=== PATIENT | female | born 1970 | race Hispanic/Latino ===

== ENCOUNTER 2017-08-11 19:14 | Emergency (ER) | payer OTHER ==
[2017-08-11] MEDS ORDERED: KETOROLAC 30 MG/ML INJ ONE (20:07)
[2017-08-11] MEDS ORDERED: predniSONE 20 MG TAB ONE (20:25)
--- NOTE | 2017-08-11 20:26 | EDPHYS ---
Physician Documentation [facility] Name: Tyra Stewart Age: 46 yrs Sex: Female : 1970 Arrival Date: 08/11/2017 Time: 19:18 Bed 18 Private MD: Althea Grant ED Physician Silvestre Groves HPI: 08/11 20:19 This 46 yrs old Female presents to ER via Ambulatory with complaints of jeremias Sunburn. 20:19 The patient presents with a burn as a result of sun. Onset: The symptoms/episode jeremias began/occurred 14 day(s) ago. Burn type and severity: 1st degree: 2nd degree: approximately 5% total body surface area of second degree injury. Associated signs and symptoms: none. The patient has not experienced similar symptoms in the past. 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 - Social history:: Smoking status: Patient/guardian denies using tobacco. - Ebola Screening: : No symptoms or risks identified at this time. - Family history:: not pertinent. ROS: 20:19 Constitutional: Negative for fever, chills, and weight loss, Eyes: Negative for injury, jeremias pain, redness, and discharge, ENT: Negative for injury, pain, and discharge, Neck: Negative for injury, pain, and swelling, Cardiovascular: Negative for chest pain, palpitations, and edema, Respiratory: Negative for shortness of breath, cough, wheezing, and pleuritic chest pain, Abdomen/GI: Negative for abdominal pain, nausea, vomiting, diarrhea, and constipation, Back: Negative for injury and pain, : Negative for injury, bleeding, discharge, and swelling, MS/Extremity: Negative for injury and deformity, Neuro: Negative for headache, weakness, numbness, tingling, and seizure, Psych: Negative for depression, anxiety, suicide ideation, homicidal ideation, and hallucinations, Allergy/Immunology: Negative for hives, rash, and allergies, Endocrine: Negative for neck swelling, polydipsia, polyuria, polyphagia, and marked weight changes, Hematologic/Lymphatic: Negative for swollen nodes, abnormal bleeding, and unusual bruising. 20:19 Skin: Positive for burn, of the right arm and left arm. Exam: 20:19 Constitutional: This is a well developed, well nourished patient who is awake, alert, jeremias and in no acute distress. Head/Face: Normocephalic, atraumatic. Eyes: Pupils equal round and reactive to light, extra-ocular motions intact. Lids and lashes normal. Conjunctiva and sclera are non-icteric and not injected. Cornea within normal limits. Periorbital areas with no swelling, redness, or edema. ENT: Nares patent. No nasal discharge, no septal abnormalities noted. Tympanic membranes are normal and external auditory canals are clear. Oropharynx with no redness, swelling, or masses, exudates, or evidence of obstruction, uvula midline. Mucous membranes moist. Neck: Trachea midline, no thyromegaly or masses palpated, and no cervical lymphadenopathy. Supple, full range of motion without nuchal rigidity, or vertebral point tenderness. No Meningismus. Chest/axilla: Normal chest wall appearance and motion. Nontender with no deformity. No lesions are appreciated. Cardiovascular: Regular rate and rhythm with a normal S1 and S2. No gallops, murmurs, or rubs. Normal PMI, no JVD. No pulse deficits. Respiratory: Lungs have equal breath sounds bilaterally, clear to auscultation and percussion. No rales, rhonchi or wheezes noted. No increased work of breathing, no retractions or nasal flaring. Abdomen/GI: Soft, non-tender, with normal bowel sounds. No distension or tympany. No guarding or rebound. No evidence of tenderness throughout. Back: No spinal tenderness. No costovertebral tenderness. Full range of motion. MS/ Extremity: Pulses equal, no cyanosis. Neurovascular intact. Full, normal range of motion. Neuro: Awake and alert, GCS 15, oriented to person, place, time, and situation. Cranial nerves II-XII grossly intact. Motor strength 5/5 in all extremities. Sensory grossly intact. Cerebellar exam normal. Normal gait. Psych: Awake, alert, with orientation to person, place and time. Behavior, mood, and affect are within normal limits. 20:19 Skin: Appearance: Color: Temperature: normal temperature, Moisture: normal moisture, petechiae, not noted, ecchymosis, not noted, diaphoresis is not appreciated. Vital Signs: 19:20 BP 141 / 85; Pulse 102; Resp 14; Temp 97.0(TE); Pulse Ox 97% on R/A; Weight 81.65 kg lk1 (R); Height 5 ft. 4 in. (162.56 cm) (R); Pain 6/10; 20:20 BP 132 / 86; Pulse 94; Resp 18; Temp 98.4(TE); Pulse Ox 99% on R/A; Pain 5/10; ak1 19:20 Body Mass Index 30.90 (81.65 kg, 162.56 cm) 1 MDM: 19:26 Patient medically screened. [facility] 20:19 Data reviewed: vital signs, nurses notes, lab test result(s). [facility] 08/11 20:14 Order name: Urine Dipstick--Ancillary (enter results) 08/11 20:14 Order name: Urine --Ancillary (enter results) 08/11 20:04 Order name: Urine Dipstick-Ancillary (obtain specimen); Complete Time: 20:04 ak1 08/11 20:04 Order name: Urine Test (obtain specimen); Complete Time: 20:04 ak Administered Medications: 20:15 Drug: TORadol 60 mg Route: IM; Site: left gluteus; ak1 20:35 Follow up: Response: No adverse reaction ak1 20:24 Drug: predniSONE 60 mg Route: PO; ak1 20:34 Follow up: Response: No adverse reaction ak1 Disposition: 08/11/17 20:25 Discharged to Home. Impression: Sunburn of second degree. - Condition is Stable. - Discharge Instructions: Sunburn, Sunburn, Zukb-es-Mliv. - Prescriptions for Keflex 500 mg Oral Capsule - take 1 capsule by ORAL route every 6 hours for 10 days; 28 capsule. Tylenol- Codeine #3 300-30 mg Oral Tablet - take 2 tablets by ORAL route every 6 hours As needed; 24 tablet. - Medication Reconciliation Form, Thank You Letter, Antibiotic Education, Prescription Opioid Use form. - Follow up: Althea Grant MD; When: 2 - 3 days; Reason: Recheck today's complaints, Continuance of care, Re-evaluation by your physician. - Problem is new. - Symptoms have improved. Signatures: Dispatcher [employer] Silvestre Rea MD MD cha Krenek, Amber, RN RN ak1 Rachle York RN RN lk1 Corrections: (The following items were deleted from the chart) 20:34 20:25 08/11/2017 20:25 Discharged to Home. Impression: Sunburn of second degree. ak1 Condition is Stable. Forms are Medication Reconciliation Form, Thank You Letter, Antibiotic Education, Prescription Opioid Use. Follow up: Althea Grant; When: 2 - 3 days; Reason: Recheck today's complaints, Continuance of care, Re-evaluation by your physician. Problem is new. Symptoms have improved. jeremias
--- NOTE | 2017-08-11 20:26 | ER ---
Nurse's Notes [facility] Name: Tyra Stewart Age: 46 yrs Sex: Female : 1970 Arrival Date: 08/11/2017 Time: 19:18 Bed 18 Private MD: Althea Grant Diagnosis: Sunburn of second degree Presentation: 08/11 19:18 Presenting complaint: Patient states: "I got sunburned last week and I got a sunburn. lk1 It is still burning and I have blisters and they look like there is water in them. I am diabetic.". Transition of care: patient was not received from another setting of care. Onset of symptoms was August 04, 2017. Risk Assessment: Do you want to hurt yourself or someone else? Patient reports no desire to harm self or others. Initial Sepsis Screen: Does the patient meet any 2 criteria? No. Patient's initial sepsis screen is negative. Does the patient have a suspected source of infection? No. Patient's initial sepsis screen is negative. Care prior to arrival: None. 19:18 Method Of Arrival: Ambulatory lk1 19:18 Acuity: TASHI 5 lk1 Triage Assessment: 19:54 General: Appears in no apparent distress. Behavior is calm, cooperative. 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 - Social history:: Smoking status: Patient/guardian denies using tobacco. - Ebola Screening: : No symptoms or risks identified at this time. - Family history:: not pertinent. Screenin:54 Abuse screen: Denies threats or abuse. Denies injuries from another. Nutritional ak1 screening: No deficits noted. Tuberculosis screening: No symptoms or risk factors identified. Fall Risk None identified. Assessment: 19:52 General: Appears in no apparent distress. Pain: Complains of pain in bilateral ak1 shoulders. Neuro: No deficits noted. Cardiovascular: No deficits noted. Respiratory: No deficits noted. GI: No signs and/or symptoms were reported involving the gastrointestinal system. : No signs and/or symptoms were reported regarding the genitourinary system. EENT: No signs and/or symptoms were reported regarding the EENT system. 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 no redness noted. Musculoskeletal: No signs and/or symptoms reported regarding the musculoskeletal system. Vital Signs: 19:20 BP 141 / 85; Pulse 102; Resp 14; Temp 97.0(TE); Pulse Ox 97% on R/A; Weight 81.65 kg lk1 (R); Height 5 ft. 4 in. (162.56 cm) (R); Pain 6/10; 20:20 BP 132 / 86; Pulse 94; Resp 18; Temp 98.4(TE); Pulse Ox 99% on R/A; Pain 5/10; ak1 19:20 Body Mass Index 30.90 (81.65 kg, 162.56 cm) lk1 ED Course: 19:18 Patient arrived in ED. es 19:18 Althea Grant MD is Private Physician. es 19:20 Triage completed. lk1 19:23 Arm band placed on right wrist. lk1 19:24 Eboni Wade, RN is Primary Nurse. ak1 19:26 Silvestre Groves MD is Attending Physician. [facility] 19:54 Patient has correct armband on for positive identification. Fall risk band placed. Bed ak1 in low position. Call light in reach. 20:02 No provider procedures requiring assistance completed. ak1 20:25 Althea Grant MD is Referral Physician. [facility] 20:33 Patient did not have IV access during this emergency room visit. ak1 Administered Medications: 20:15 Drug: TORadol 60 mg Route: IM; Site: left gluteus; ak1 20:35 Follow up: Response: No adverse reaction ak1 20:24 Drug: predniSONE 60 mg Route: PO; ak1 20:34 Follow up: Response: No adverse reaction ak1 Outcome: 20:20 Condition: good ak1 20:25 Discharge ordered by . [facility] 20:33 Discharged to home ambulatory. ak1 20:33 Discharge instructions given to patient, Instructed on discharge instructions, follow up and referral plans. no drinking with medication, no driving heavy equipment, medication usage, Demonstrated understanding of instructions, follow-up care, medications, Prescriptions given X 2. 20:34 Patient left the ED. ak1 Signatures: Silvestre Groves MD MD cha Salyer, Edna es Krenek, Amber, RN RN ak1 Rachel York, ROLAND RN lk1
[2017-08-11 20:39] VITALS: BP 132/86; TEMP 98.4; O2SAT 99
[2017-08-11 20:56] LABS: Urine Blood NEGATIVE (NEG); Urine Glucose NEGATIVE (NEG); Urine Protein 1+ (NEG); Urine Specific Gravity 1.015 (1.005-1.030); Urine pH 5.5 (5.0-7.0)
== END 2017-08-11 20:34 | disposition home or self-care (01) ==
LOC: ER 19:14
DX: L55.1 Sunburn of second degree (principal); I10 Essential (primary) hypertension; E11.9 Type 2 diabetes mellitus without complications
CPT/HCPCS: 81003; 81025; 96372; 99283; J7512

== ENCOUNTER 2017-09-21 13:27 | Observation (INO) | payer OTHER ==
--- OUTSIDE RECORDS SUMMARY | 2017-09-21 13:30 | XMS REPORT ---
:1970 Author Organization [employer] Care Team Providers Name Role Phone Grant, Na Provider Role Unavailable Allergies, Adverse Reactions, Alerts Substance Reaction Event Type N.K.D.A. Info Not Available Non Drug Allergy Problems Problem Type Condition Code Onset Dates Condition Status Assessment Proliferative diabetic retinopathy E11.3592 Active of left eye associated with type 2 diabetes mellitus, unspecified proliferative retinopathy type Assessment Anemia D64.9 Active Problem Trigger finger M65.30 Active Assessment Chronic kidney disease, stage 3 N18.3 Active Problem Legal blindness H54.8 Active Assessment Hyperlipidemia E78.5 Active Problem intermediate current use of insulin Z79.4 Active Problem Anemia D64.9 Active Problem Depression with anxiety F41.8 Active Problem Hyperlipidemia E78.5 Active Problem Diabetes E11.9 Active Assessment Moderate episode of recurrent F33.1 Active major depressive disorder Assessment Benign essential HTN I10 Active Problem Proliferative diabetic retinopathy E11.3592 Active of left eye associated with type 2 diabetes mellitus, unspecified proliferative retinopathy type Assessment Neuropathy G62.9 Active Problem Benign essential HTN I10 Active Problem Vitamin D deficiency E55.9 Active Problem Microalbuminuria R80.9 Active Problem Neuropathy G62.9 Active Problem 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 neuropathy Assessment intermediate current use of insulin Z79.4 Active Assessment Type 2 diabetes mellitus with E11.65 Active hyperglycemia Problem Chronic kidney disease, stage 3 N18.3 Active Problem Type 2 diabetes mellitus with E11.65 Active hyperglycemia Problem Type 2 diabetes mellitus with E11.37X3 Active diabetic macular edema, resolved following treatment, bilateral Problem Moderate episode of recurrent F33.1 Active major depressive disorder Medications Medication Code System Code Instructions Start Date End Date Status Dosage Paxil NDC 0 Active not defined Results No Known Results Summary Purpose [employer] Submission
[2017-09-21 14:23] LABS: Absolute Monocytes 0.6 K/uL (0.1-1.3); Absolute Neutrophil 9.4 K/uL (1.8-8.0); Basophils % 0.4 % (0-1.3); Eosinophils % 0.5 % (0-4.4); Hematocrit 32.1 % (36.0-45.0); Lymphocytes % 9.4 % (15.3-44.8); MCH 26.8 pg (27.0-35.0); MCV 80.3 fL (80-100); MPV 9.7 fL (7.6-11.3)
[2017-09-21 14:27] LABS: Protime INR 1.01
--- NOTE | 2017-09-21 14:28 | RAD REPORT ---
EXAM DESCRIPTION: RAD - Chest Single View - 09/21/2017 2:16 pm CLINICAL HISTORY: CHEST PAIN Chest pain. COMPARISON: Chest Single View dated 11/11/2015; Chest Single View dated 11/09/2015; CHEST PA AND LAT 2 VIEW dated 03/10/2010 FINDINGS: Portable technique limits examination quality. The lungs are underinflated with a small right parahilar opacity noted which could be developing pneu monia. The heart is normal in size. No displaced fractures.
[2017-09-21] MEDS ORDERED: MECLIZINE HCL 12.5 MG TAB ONE (14:31)
[2017-09-21] MEDS ORDERED: ONDANSETRON 4 MG/2 ML VIAL ONE (14:31)
--- NOTE | 2017-09-21 14:38 | RAD REPORT ---
EXAM DESCRIPTION: CT - Head Brain Wo Cont - 09/21/2017 2:23 pm CLINICAL HISTORY: DIZZINESS Headache COMPARISON: HEAD BRAIN W O CONTRAST dated 11/21/2011 TECHNIQUE: All CT scans are performed using dose optimization technique as appropriate and may inclu de automated exposure control or mA/KV adjustment according to patient size. FINDINGS: No intracranial hemorrhage, hydrocephalus or extra-axial fluid collection.No areas of brai n edema or evidence of midline shift. Increased density in the right globe is noted. The paranasal sinuses and mastoids are clear. The calvarium is intact. IMPRESSION: No acute intracranial abnormality. Increased density in the right globe suggests retinal detachment, age undetermined.
[2017-09-21 14:41] LABS: Albumin 3.6 g/dL (3.4-5.0); Bilirubin Direct 0.1 mg/dL (0-0.2); Bilirubin Total 0.4 mg/dL (0.2-1.0); CKMB Creatine Kinase MB 2.4 ng/mL (0.3-3.6); Magnesium 2.3 mg/dL (1.8-2.4); Protein, Total 8.1 g/dL (6.4-8.2)
[2017-09-21 14:42] LABS: Potassium 5.6 mmol/L (3.5-5.1)
[2017-09-21] MEDS ORDERED: NA CHLORIDE 0.9% 1,000 ML ONE (14:59)
[2017-09-21] MEDS ORDERED: MORPHINE 4 MG/ML SYR ONE (15:41)
--- NOTE | 2017-09-21 16:37 | EKG ---
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
[2017-09-21 18:07] LABS: Potassium 5.8 mmol/L (3.5-5.1)
[2017-09-21] MEDS ORDERED: SOD POLYSTYREN SUL 15 GM/60 ML UCUP ONE (18:21)
--- NOTE | 2017-09-21 18:32 | EDPHYS ---
Physician Documentation [facility] Name: Tyra Stewart Age: 46 yrs Sex: Female : 1970 Arrival Date: 09/21/2017 Time: 13:30 Bed 20 Private MD: Althea Grant ED Physician Jeovanny Granado HPI: 09/21 13:59 This 46 yrs old Female presents to ER via Ambulatory with complaints of [facility] Dizziness, Nausea. 13:59 The patient presents with dizziness. Onset: The symptoms/episode began/occurred jm acutely, this morning. Associated signs and symptoms: Pertinent positives: chest pain, shortness of breath. This is a 46 year old female with a history of DM that presents to the ED with dizziness upon awakening this morning worsening with movement. Patient states she took a nap and awoke around 1230 pm with chest pain she describes as pressure. The pain has been constant and radiates across her chest. Patient also complains of chills. Patient states her mother currently has pneumonia. . 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 - Social history:: Smoking status: Patient/guardian denies using tobacco. - Ebola Screening: : Patient negative for fever greater than or equal to 101.5 degrees Fahrenheit, and additional compatible Ebola Virus Disease symptoms Patient denies exposure to infectious person Patient denies travel to an Ebola-affected area in the 21 days before illness onset No symptoms or risks identified at this time. ROS: 14:01 Constitutional: Positive for chills. jmm 14:01 Cardiovascular: Positive for chest pain. jmm 14:01 Back: Negative for injury and pain. jmm 14:01 Respiratory: Positive for shortness of breath. 14:01 Abdomen/GI: Positive for nausea, Negative for abdominal pain, diarrhea. 14:01 Neuro: Positive for dizziness. 14:01 All other systems are negative. Exam: 14:01 Head/Face: atraumatic. jmm 14:01 Constitutional: The patient appears alert, awake, anxious, uncomfortable. 14:01 Chest/axilla: Inspection: normal, Palpation: tenderness, that is moderate, that totally reproduces the patient's complaints. 14:01 Cardiovascular: Rate: normal, Rhythm: regular, Pulses: no pulse deficits are appreciated. 14:01 Respiratory: the patient does not display signs of respiratory distress, Respirations: normal, Breath sounds: are clear throughout. 14:01 Abdomen/GI: Inspection: abdomen appears normal, Bowel sounds: normal, Palpation: abdomen is soft and non-tender, in all quadrants. 14:01 Back: ROM is normal. 14:01 Musculoskeletal/extremity: ROM: intact in all extremities. 14:01 Skin: Appearance: Color: normal in color. 14:01 Neuro: Orientation: is normal, Mentation: is normal, Memory: is normal. 14:01 Psych: Behavior/mood is pleasant, cooperative, anxious. Vital Signs: 13:33 BP 147 / 92; Pulse 115; Resp 20; Temp 99.4(O); Pulse Ox 100% on R/A; Weight 81.65 kg aj1 (R); Height 5 ft. 4 in. (162.56 cm) (R); 14:30 BP 133 / 89; Pulse 99; Resp 16; Pulse Ox 100% on R/A; dh3 14:45 BP 122 / 78; Pulse 93; Resp 20; Pulse Ox 99% on R/A; dh3 15:00 BP 139 / 75; Pulse 92; Resp 13; Pulse Ox 99% on R/A; dh3 15:20 BP 146 / 83; Pulse 91; Resp 18; Pulse Ox 100% on R/A; dh3 16:19 BP 130 / 71; Pulse 82; Resp 14; Pulse Ox 97% on R/A; dh3 17:10 BP 149 / 84; Pulse 84; Resp 17; Pulse Ox 98% on R/A; Pain 0/10; em 18:25 BP 141 / 80; Pulse 83; Resp 16; Temp 97.6(O); Pulse Ox 99% on R/A; Pain 0/10; em 19:30 BP 105 / 70; Pulse 72; Resp 16; Pulse Ox 98% on R/A; ao 20:48 BP 110 / 72; Pulse 79; Resp 16; Pulse Ox 95% on R/A; Pain 0/10; ao 21:40 BP 112 / 68; Pulse 73; Resp 16; Pulse Ox 96% ; ao 13:33 Body Mass Index 30.90 (81.65 kg, 162.56 cm) aj1 MDM: 13:56 Patient medically screened. [facility] 14:17 Data reviewed: vital signs, nurses notes. [facility] 18:26 Counseling: I had a detailed discussion with the patient and/or guardian regarding: the [facility] historical points, exam findings, and any diagnostic results supporting the discharge/admit diagnosis, lab results, radiology results, the need for further work-up and treatment in the hospital. Physician consultation: Zeke Arroyo MD accepts admission. 09/21 13:58 Order name: Basic Metabolic Panel; Complete Time: 14:[address] [facility] 09/21 13:58 Order name: CBC with Diff; Complete Time: 14:[address] [facility] 09/21 13:58 Order name: Ckmb; Complete Time: 14:[address] [facility] 09/21 13:58 Order name: CPK; Complete Time: 14:[address] [facility] 09/21 13:58 Order name: LFT's; Complete Time: 14:[address] [facility] 09/21 13:58 Order name: Magnesium; Complete Time: 14:[address] [facility] 09/21 13:58 Order name: NT PRO-BNP; Complete Time: 14:[address] [facility] 09/21 13:58 Order name: PT-INR; Complete Time: 14:[address] [facility] 09/21 13:58 Order name: Ptt, Activated; Complete Time: 14:[address] [facility] 09/21 13:58 Order name: Troponin (emerg Dept Use Only); Complete Time: 14:[address] [facility] 09/21 17:23 Order name: BMP; Complete Time: 18:[address] [facility] 09/21 18:28 Order name: Blood Culture Adult (2) [facility] 09/21 19:23 Order name: Urine Dipstick--Ancillary (enter results) ms 09/21 19:23 Order name: Urine --Ancillary (enter results) ms 09/21 13:58 Order name: XRAY Chest (1 view); Complete Time: 14:[address] [facility] 09/21 13:58 Order name: EKG; Complete Time: 13:[address] [facility] 09/21 13:58 Order name: Cardiac monitoring; Complete Time: 15:[address] [facility] 09/21 13:58 Order name: EKG - Nurse/Tech; Complete Time: 15:[address] [facility] 09/21 13:58 Order name: IV Saline Lock; Complete Time: 15:[address] [facility] 09/21 13:58 Order name: CT Head Brain wo Cont; Complete Time: 14:[address] [facility] 09/21 19:31 Order name: Urine --Ancillary; Complete Time: 07:52 EDMS 09/21 19:31 Order name: Urine Dipstick-Ancillary; Complete Time: 07:52 EDMS 09/21 21:32 Order name: D-Dimer; Complete Time: 07:52 EDMS 09/21 21:33 Order name: Troponin I; Complete Time: 07:52 EDMS 09/21 13:58 Order name: Labs collected and sent; Complete Time: 15:[address] [facility] 09/21 13:58 Order name: O2 Per Protocol; Complete Time: 15:[address] [facility] 09/21 13:58 Order name: O2 Sat Monitoring; Complete Time: 15:[address] [facility] 09/21 13:58 Order name: Urine Dipstick-Ancillary (obtain specimen); Complete Time: 19:19 jm Administered Medications: 14:37 Drug: Meclizine 25 mg Route: PO; em 15:21 Follow up: Response: No adverse reaction; Marked relief of symptoms em 14:37 Drug: Zofran 4 mg Route: IVP; Site: right antecubital; kr2 15:10 Follow up: Response: No adverse reaction; Anxiety decreased em 15:00 Drug: NS 0.9% 1000 ml Route: IV; Rate: 1 bolus; Site: right antecubital; em 16:00 Follow up: IV Status: Completed infusion; IV Intake: 1000ml em 15:41 Drug: morphine 2 mg Route: IVP; Site: right antecubital; aj1 16:30 Follow up: Response: No adverse reaction; Pain is decreased em 18:20 Drug: Kayexalate 30 grams Route: PO; em 18:59 Follow up: Response: No adverse reaction em 20:30 Drug: Rocephin - (cefTRIAXone) 1 grams Route: IVPB; Infused Over: 30 mins; Site: right ao antecubital; 21:46 Follow up: IV Status: Completed infusion ao Disposition: 09/22 07:13 Co-signature as Attending Physician, Jeovanny Granado MD. rn Disposition: 09/21/17 18:31 Hospitalization ordered by Zeke Arroyo for Observation. Preliminary diagnosis are Pneumonia, Hyperkalemia, Chest Pain. - Bed requested for Telemetry/MedSurg (observation). - Status is Observation. ao - Condition is Stable. - Problem is new. - Symptoms have improved. UTI on Admission? No Signatures: Dispatcher [employer] EDRoya Sommers RN RN aj1 Jena Levine RN RN Avni Chni PA PA [facility] Nawaf, Antolin, TRAIN CONTROLLER TRAIN CONTROLLER em Jeovanny Granado MD MD rn Ortiz, Alex, RN RN ao Reaves, Karey, RN RN kr2 Corrections: (The following items were deleted from the chart) 09/21 19:51 18:31 Hospitalization Ordered by Zeke Arroyo MD for Observation. Preliminary diagnosis kl is Pneumonia; Hyperkalemia; Chest Pain. Bed requested for Telemetry/MedSurg (observation). Status is Observation. Condition is Stable. Problem is new. Symptoms have improved. UTI on Admission? No. [facility] 21:53 19:51 09/21/2017 18:31 Hospitalization Ordered by Zeke Arroyo MD for Observation. ao Preliminary diagnosis is Pneumonia; Hyperkalemia; Chest Pain. Bed requested for Telemetry/MedSurg (observation). Status is Observation. Condition is Stable. Problem is new. Symptoms have improved. UTI on Admission? No. [facility]
--- NOTE | 2017-09-21 18:32 | ER ---
Nurse's Notes [facility] Name: Tyra Stewart Age: 46 yrs Sex: Female : 1970 Arrival Date: 09/21/2017 Time: 13:30 Bed 20 Private MD: Althea Grant Diagnosis: Pneumonia;Hyperkalemia;Chest Pain Presentation: 09/21 13:33 Presenting complaint: Patient states: "I woke up and I was feeling a bunch of pressure aj1 in my chest and its hard breathing and I have a lot of pain in my legs and I feel really dizzy." Reports substernal chest pain that does not radiate, shortness of breath. Denies syncope, vomiting. Transition of care: patient was not received from another setting of care. Onset of symptoms was September 21, 2017 at 08:00. Risk Assessment: Do you want to hurt yourself or someone else? Patient reports no desire to harm self or others. Initial Sepsis Screen: Does the patient meet any 2 criteria? HR > 90 bpm. No. Patient's initial sepsis screen is negative. Does the patient have a suspected source of infection? No. Patient's initial sepsis screen is negative. Care prior to arrival: None. 13:33 Method Of Arrival: Ambulatory aj 13:33 Acuity: TASHI 3 aj1 Triage Assessment: 13:33 General: Appears in no apparent distress. uncomfortable, Behavior is cooperative, aj1 anxious. Pain: Complains of pain in mid-sternal area Pain does not radiate. Pain currently is 7 out of 10 on a pain scale. Quality of pain is described as heavy, Pain began 5 hours ago Is continuous, Alleviated by nothing. Aggravated by nothing. Neuro: Level of Consciousness is awake, alert, obeys commands, Reports dizziness. Cardiovascular: Reports chest pain, nausea, palpitations, shortness of breath, Patient's skin is warm and dry. Respiratory: Airway is patent Respiratory effort is even, unlabored, Respiratory pattern is regular, symmetrical. GI: Reports nausea. 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 - Social history:: Smoking status: Patient/guardian denies using tobacco. - Ebola Screening: : Patient negative for fever greater than or equal to 101.5 degrees Fahrenheit, and additional compatible Ebola Virus Disease symptoms Patient denies exposure to infectious person Patient denies travel to an Ebola-affected area in the 21 days before illness onset No symptoms or risks identified at this time. Screenin:00 Abuse screen: Denies threats or abuse. Nutritional screening: No deficits noted. em Tuberculosis screening: No symptoms or risk factors identified. 17:28 Fall Risk None identified. em Assessment: 14:00 General: Appears in no apparent distress. uncomfortable, Behavior is calm, cooperative. em Pain: Complains of pain in mid-sternal area. Neuro: Level of Consciousness is awake, alert, obeys commands, Oriented to person, place, time, Reports dizziness. Cardiovascular: Reports chest pain, nausea, shortness of breath, Capillary refill < 3 seconds. Respiratory: Airway is patent Respiratory effort is even, unlabored, Respiratory pattern is regular, symmetrical. GI: Abdomen is round non-distended. : No signs and/or symptoms were reported regarding the genitourinary system. Derm: Skin is intact, Skin is pink, warm \\T\\ dry. Musculoskeletal: Range of motion: intact in all extremities. 14:05 Reassessment: I agree with previous assessment. hb 15:30 Reassessment: Patient appears in no apparent distress at this time. Patient and/or em family updated on plan of care and expected duration. Pain level reassessed. pt c/o chest pain, JITENDRA Holly notified, new medication orders received. 16:30 Reassessment: Patient appears in no apparent distress at this time. Patient and/or em family updated on plan of care and expected duration. Pain level reassessed. Patient is alert, oriented x 3, equal unlabored respirations, skin warm/dry/pink. Patient states feeling better. 17:24 Reassessment: Patient appears in no apparent distress at this time. Patient and/or em family updated on plan of care and expected duration. Pain level reassessed. Patient is alert, oriented x 3, equal unlabored respirations, skin warm/dry/pink. Patient states feeling better. Patient states symptoms have improved. 18:20 Reassessment: Patient appears in no apparent distress at this time. currently denies em CP, rates pain 0/10, will be given PO Kayexalate. 19:30 General: Appears in no apparent distress. comfortable, Behavior is calm, cooperative, ao appropriate for age. Pain: Denies pain. Neuro: Level of Consciousness is awake, alert, obeys commands, Oriented to person, place, time, situation, Appropriate for age. Cardiovascular: Reports chest pain, nausea, shortness of breath. Respiratory: Airway is patent Respiratory effort is even, unlabored, Respiratory pattern is regular, symmetrical. GI: Abdomen is round non-distended. : No signs and/or symptoms were reported regarding the genitourinary system. EENT: No signs and/or symptoms were reported regarding the EENT system. Derm: No signs and/or symptoms reported regarding the dermatologic system. Musculoskeletal: No signs and/or symptoms reported regarding the musculoskeletal system. 20:20 Reassessment: Patient appears in no apparent distress at this time. Patient and/or ao family updated on plan of care and expected duration. Pain level reassessed. Patient is alert, oriented x 3, equal unlabored respirations, skin warm/dry/pink. Patient to be admitted. patient agree with the POC. Report to be called. 20:50 Reassessment: Report called to [place] WATKINS. Waiting on an elevator service technician available to take ao patient to her room. 21:52 Reassessment: No elevator service technician available. Patient was taking to her room by ER nurse. Patient ao has no questions. hand off care to ROLAND Boyle. Vital Signs: 13:33 BP 147 / 92; Pulse 115; Resp 20; Temp 99.4(O); Pulse Ox 100% on R/A; Weight 81.65 kg aj1 (R); Height 5 ft. 4 in. (162.56 cm) (R); 14:30 BP 133 / 89; Pulse 99; Resp 16; Pulse Ox 100% on R/A; dh3 14:45 BP 122 / 78; Pulse 93; Resp 20; Pulse Ox 99% on R/A; dh3 15:00 BP 139 / 75; Pulse 92; Resp 13; Pulse Ox 99% on R/A; dh3 15:20 BP 146 / 83; Pulse 91; Resp 18; Pulse Ox 100% on R/A; dh3 16:19 BP 130 / 71; Pulse 82; Resp 14; Pulse Ox 97% on R/A; dh3 17:10 BP 149 / 84; Pulse 84; Resp 17; Pulse Ox 98% on R/A; Pain 0/10; em 18:25 BP 141 / 80; Pulse 83; Resp 16; Temp 97.6(O); Pulse Ox 99% on R/A; Pain 0/10; em 19:30 BP 105 / 70; Pulse 72; Resp 16; Pulse Ox 98% on R/A; ao 20:48 BP 110 / 72; Pulse 79; Resp 16; Pulse Ox 95% on R/A; Pain 0/10; ao 21:40 BP 112 / 68; Pulse 73; Resp 16; Pulse Ox 96% ; ao 13:33 Body Mass Index 30.90 (81.65 kg, 162.56 cm) aj1 ED Course: 13:30 Patient arrived in ED. sb2 13:30 Althea Grant MD is Private Physician. sb2 13:33 Arm band placed on Patient placed in an exam room. aj1 13:37 Triage completed. aj1 13:44 Avni Bello PA is PHCP. jmm 13:45 Jeovanny Granado MD is Attending Physician. jmm 14:00 Patient has correct armband on for positive identification. Bed in low position. Call em light in reach. 14:05 Initial lab(s) drawn, by me, sent to lab. Inserted saline lock: 20 gauge in right dh3 antecubital area, using aseptic technique. Blood collected. 14:10 Antolin Mccracken LVN is Primary Nurse. em 14:14 EKG done, by ED staff, reviewed by Avni HAM. dh3 14:17 XRAY Chest (1 view) In Process Unspecified. EDMS 14:24 CT completed. Patient moved to CT via wheelchair. Patient moved back from CT. cw1 14:24 CT Head Brain wo Cont In Process Unspecified. EDMS 17:27 No provider procedures requiring assistance completed. em 18:30 Zeke Arroyo MD is Hospitalizing Provider. m 19:01 First set of blood cultures drawn by me, by venipuncture 23G to left ac. dh3 19:19 Urine collected: clean catch specimen, clear. dh3 21:48 Patient admitted, IV remains in place. ao Administered Medications: 14:37 Drug: Meclizine 25 mg Route: PO; em 15:21 Follow up: Response: No adverse reaction; Marked relief of symptoms em 14:37 Drug: Zofran 4 mg Route: IVP; Site: right antecubital; kr2 15:10 Follow up: Response: No adverse reaction; Anxiety decreased em 15:00 Drug: NS 0.9% 1000 ml Route: IV; Rate: 1 bolus; Site: right antecubital; em 16:00 Follow up: IV Status: Completed infusion; IV Intake: 1000ml em 15:41 Drug: morphine 2 mg Route: IVP; Site: right antecubital; aj1 16:30 Follow up: Response: No adverse reaction; Pain is decreased em 18:20 Drug: Kayexalate 30 grams Route: PO; em 18:59 Follow up: Response: No adverse reaction em 20:30 Drug: Rocephin - (cefTRIAXone) 1 grams Route: IVPB; Infused Over: 30 mins; Site: right ao antecubital; 21:46 Follow up: IV Status: Completed infusion ao Intake: 16:00 IV: 1000ml; Total: 1000ml. em Outcome: 18:31 Decision to Hospitalize by Provider. usama 21:46 Admitted to Tele accompanied by nurse, room 422, with chart, Other Report lab alert ao D-Dimer 1440. DR Reese has been notified at 2133. 21:46 Condition: stable 21:46 Instructed on the need for admit. 21:53 Patient left the ED. ao Signatures: Dispatcher [employer] Roya Miner RN RN aj1 Avni Bello PA PA [facility] Antolin Mccracken, HULL OUTFIT SUPERVISOR HULL OUTFIT SUPERVISOR Tabby Rebolledo 1 Calin Patel RN Amada De La Torre RN RN Anna Mercado 3 Anh German RN RN susan2 Ailin Potts2
[2017-09-21] MEDS ORDERED: ONDANSETRON 4 MG/2 ML VIAL IV PRN (19:06)
[2017-09-21 19:30] LABS: Urine Blood NEGATIVE (NEG); Urine Glucose NEGATIVE (NEG); Urine Protein 1+ (NEG); Urine pH 5.5 (5.0-7.0)
--- NOTE | 2017-09-21 19:57 | P.HP ---
Certification for Inpatient Patient admitted to: Observation With expected LOS: <2 Midnights Practitioner: I am a practitioner with admitting privileges, knowledge of patient current condition, hospital course, and medical plan of care. Services: Services provided to patient in accordance with Admission requirements found in Title 42 Section 412.3 of the Code of Federal Regulations Patient History Date of Service: 09/21/17 Reason for admission: Chest pain History of Present Illness: Ms Stewart is a 46-year-old woman, with history of insulin-dependent diabetes mellitus, chronic kidney disease, hypertension, would this morning starts having substernal chest pain associated with shortness of breath. The pain was getting worse with breathing moment and any kind of chest moment. She denied any fever or chills. She denied cough associated with. She also states that has been dizzy since this morning. The chest pain lasts until she came to the hospital on received morphine. The pain was constant, intensity 9/10. At arrival the patient was tachycardic HR 115 BPM, temp was 99.4 F, BP 147/92, O2 sat 100% on room air. Lab work remarkable for leukocytosis 11.1 K, hyperkalemia 5.6, and creatinines level more elevated than his baseline. UA abnormal consistent with UTI, chest-x-ray remarkable for right parahilar opacity consistent with possible early pneumonia Allergies piperacillin [From Zosyn] Adverse Reaction (Severe, Verified 11/10/15 23:45) Nausea/Vomiting tazobactam [From Zosyn] Adverse Reaction (Severe, Verified 11/10/15 23:45) Nausea/Vomiting N Allergy (Uncoded 07/30/16 21:13) Unknown No Known Allergies Allergy (Uncoded 08/11/17 20:37) Unknown Home medications list reviewed: Yes Home Medications: Gabapentin [Neurontin] 300 mg PO TID 11/09/15 Insulin Glargine,Hum.rec.anlog [Angie Burns] 69 unit SQ BEDTIME 11/09/15 Lisinopril 10 mg PO DAILY 11/09/15 Hydrocodone Bit/Acetaminophen [War 10-325 Tablet] 1 each PO Q6HP PRN #30 tablet 11/11/15 Metoclopramide HCl [Reglan] 10 mg PO ACS #30 tablet 11/11/15 Minocycline HCl [Minocin] 100 mg PO BID #14 capsule 11/11/15 Silver Sulfadiazine Crm [Silvadene*] 1 appl TOP BID #1 jar 11/11/15 Smz./Tmp. [Bactrim Ds 800 MG/160 MG] 1 tab PO BID #20 tab 11/11/15 - Past Medical/Surgical History -: Diabetes type 2(insulin-dependent) -: Retinopathy -: Blindness Past Surgical History: Reviewed- Non-Contributory - Family History Father -: Diabetes - Social History Alcohol use: No CD- Drugs: No Caffeine use: No Place of Residence: Home Review of Systems 10-point ROS is otherwise unremarkable Physical Examination - Physical Exam General: Alert, In no apparent distress HEENT: Atraumatic, PERRLA, Mucous membr. moist/pink, EOMI, Sclerae nonicteric Neck: Supple, 2+ carotid pulse no bruit, No LAD, Without JVD or thyroid abnormality Respiratory: Normal air movement, Crackles/rales (Crackles on the right middle field.) Cardiovascular: Regular rate/rhythm, Normal S1 S2 Gastrointestinal: Normal bowel sounds, No tenderness Musculoskeletal: No tenderness Integumentary: No rashes Neurological: Normal speech, Normal strength at 5/5 x4 extr, Normal tone, Normal affect Lymphatics: No axilla or inguinal lymphadenopathy - Studies Laboratory Data (last 24 hrs) 09/21/17 17:40: Sodium 142, Potassium 5.8 H*, BUN 33 H, Creatinine 1.60 H, Glucose 102 09/21/17 14:06: PT 11.9, INR 1.01, APTT 32.0 09/21/17 14:06: WBC 11.1 H, Hgb 10.7 L, Hct 32.1 L, Plt Count 239 09/21/17 14:06: Sodium 141, Potassium 5.6 H*, BUN 35 H, Creatinine 1.80 H, Glucose 142 H, Magnesium 2.3, Total Bilirubin 0.4, AST 21, ALT 24, Alkaline Phosphatase 109 Assessment and Plan - Problems (Diagnosis) (1) Diabetes mellitus Current Visit: Yes Status: Acute Qualifiers: Diabetes mellitus type: type 2 Diabetes mellitus nursing home insulin use: with long term care pharmacist use Diabetes mellitus complication status: with kidney complications Diabetes mellitus complication detail: with chronic kidney disease Chronic kidney disease stage: stage 3 (moderate) Qualified Code(s): E11.22 - Type 2 diabetes mellitus with diabetic chronic kidney disease; N18.3 - Chronic kidney disease, stage 3 (moderate); 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 (2) Hypertension Current Visit: Yes Status: Acute Qualifiers: Hypertension type: essential hypertension Qualified Code(s): I10 - Essential (primary) hypertension (3) Hyperkalemia Current Visit: Yes Status: Acute (4) Pneumonia Current Visit: Yes Status: Acute Qualifiers: Pneumonia type: due to unspecified organism Laterality: right Lung location: middle lobe of lung Qualified Code(s): J18.1 - Lobar pneumonia, unspecified organism (5) UTI (urinary tract infection) Current Visit: Yes Status: Acute Qualifiers: Urinary tract infection type: acute cystitis Hematuria presence: without hematuria Qualified Code(s): N30.00 - Acute cystitis without hematuria (6) Acute kidney injury superimposed on chronic kidney disease Current Visit: Yes Status: Acute - Plan The patient will be admitted to the hospital due to atypical chest pain, possible triggered by an early development of pneumonia. Initial troponin is negative, EKG showed no ST-T abnormalities. Since the patient was tachycardic, dizzy, shortness of breath and chest pain at presentation, differential diagnosis include pulmonary embolism. Will start workup ordering D-dimer. She will receive empiric antibiotic treatment for right middle lobe pneumonia and UTI. Blood cultures in process. The patient has received Kayexalate to treat hyperkalemia, last potassium level was 5.8. Will check potassium level again at 10:00 p.m. and will continue treatment if is necessary. - Advance Directives Does patient have a Living Will: No Does patient have a Durable POA for Healthcare: No - Code Status/Comfort Care Code Status Assessed: Yes Code Status: Full Code
[2017-09-21] MEDS ORDERED: Levofloxacin 750mg IV 750 MG/150 ML BAG IV SCH (20:00)
[2017-09-21] MEDS ORDERED: Morphine 2 MG/2 ML SYR IV PRN (20:07)
[2017-09-21] MEDS ORDERED: CEFTRIAXONE/SWI 1gm 1 GM/10 ML SYR ONE (20:20)
[2017-09-21] MEDS: INSULIN -REGULAR HUMAN 50 UNIT/0.5 ML ML SQ SCH (21:00)
[2017-09-21] MEDS ORDERED: MORPHINE 2 MG/ML SYR ONE (23:09)
[2017-09-21] MEDS: NA CHLORIDE 0.9% 1,000 ML IV SCH (23:12)
[2017-09-22] MEDS: ENOXAPARIN 80 MG/0.8 ML SQ SCH ×2 (00:12→09:48)
[2017-09-22] MEDS: NA CHLORIDE 0.9% 1,000 ML IV SCH ×2 (06:00→17:20)
[2017-09-22 06:15] LABS: Albumin 2.8 g/dL (3.4-5.0); Bilirubin Total 0.3 mg/dL (0.2-1.0); Potassium 4.4 mmol/L (3.5-5.1); Protein, Total 6.7 g/dL (6.4-8.2)
[2017-09-22 06:25] LABS: Absolute Lymphocytes (CBC) 2.5 K/uL (0.7-4.9); Absolute Monocytes 0.7 K/uL (0.1-1.3); Absolute Neutrophil 4.5 K/uL (1.8-8.0); Basophils % 0.7 % (0-1.3); Eosinophils % 1.3 % (0-4.4); Hematocrit 26.9 % (36.0-45.0); Lymphocytes % 31.5 % (15.3-44.8); MCV 81.5 fL (80-100); MPV 9.7 fL (7.6-11.3); Monocytes % 8.8 % (3.3-12.3)
[2017-09-22] MEDS: INSULIN -REGULAR HUMAN 50 UNIT/0.5 ML ML SQ SCH ×4 (07:30→20:28)
[2017-09-22] MEDS ORDERED: PNEUMOCOCCAL VACCINE 0.5 ML IMVAC ONE (08:00)
--- NOTE | 2017-09-22 08:17 | RAD REPORT ---
EXAM DESCRIPTION: NM - Vent Perfusion VQ Scan - 09/22/2017 7:59 am CLINICAL HISTORY: Chest pain, shortness of breath COMPARISON: Chest film September 21 TECHNIQUE: The patient was administered 20.2 mCi Xenon 133 gas with posterior projection inspiration , equilibrium, and washout views obtained. The patient was then administered 7.0 mCi Tc-99m MAA label ed RBCs followed by standard 8 view protocol. FINDINGS: There is a generally good distribution of the radiopharmaceutical throughout the lung pare nchyma. Right base activity is diminished due to right hemidiaphragm elevation. Small focal defect is seen in the superior aspect of the right lung field. Cardiac silhouette creates ventilation defect i n the medial left lung field. No significant air-trapping seen. There is a wedge-shaped perfusion defect in the posterosuperior right lung field. This is probably th e correlate to the ventilation defect. Perfusion defect is larger than the ventilation defect. No oth er lobar, segmental or probable subsegmental defects. Patchy diminished activity in the posterior mid left lung field may be due to anatomic soft tissue overlap. IMPRESSION: Intermediate probability V/Q scan for pulmonary embolism.
[2017-09-22] MEDS: GABAPENTIN 100 MG CAP PO SCH ×3 (09:48→20:36)
[2017-09-22] MEDS: LISINOPRIL 10 MG TAB PO SCH (09:48)
[2017-09-22] MEDS: ACETAMINOPHEN 500 MG TAB PO PRN (09:54)
--- NOTE | 2017-09-22 11:17 | RAD REPORT ---
EXAM DESCRIPTION: VAS - Extrem Venous W Compress Charan - 09/22/2017 11:09 am CLINICAL HISTORY: Bilateral leg pain and swelling COMPARISON: None. TECHNIQUE: Real-time sonographic evaluation of the bilateral lower extremity deep venous systems was performed. FINDINGS: Normal compressibility, flow augmentation, phasic flow and spontaneous flow are identified in the bilateral lower extremity common femoral, superficial femoral, popliteal and posterior tibial veins. No intraluminal filling defects seen. IMPRESSION: No DVT in the bilateral lower extremity.
--- NOTE | 2017-09-22 13:33 | PN ---
Date of Progress Note: 09/22/2017 Subjective: The patient is seen and examined. Chart reviewed and case discussed with RN. The patie nt states that she is still having some dizziness, not feeling well. Shortness of breath is also pre sent. Review of Systems: Negative except as above. Medications: List reviewed. Physical Examination: Vital Signs: Temperature 97, heart rate 98, blood pressure 162/85, respirations 18, O2 100% on room air. General: Awake, alert, oriented x3. Some mild distress, appears older than stated age. Obese femal e, BMI 31. CV: S1, S2. Regular rate and rhythm. Peripheral pulses present. Respiratory: Diminished breath sounds at the base. No wheezing or stridor. No use of accessory mus cles. Gastrointestinal: Abdomen is soft, nontender, nondistended. Positive bowel sounds. No guarding or rigidity. Extremities: No clubbing, cyanosis, or edema. Neurologic: Nonfocal. Laboratory Data: Sodium 144, potassium 4.4, chloride 114, CO2 23, BUN 28, creatinine 1.6, glucose 65 , calcium 8.3, albumin 2.8. Troponin less than 0.02. WBC 7.8, H and H 8.9 and 26.9, platelets 203, neutrophils 57.7%. Blood cultures pending. Sputum culture is pending. Doppler sonogram shows no DV T in bilateral lower extremity. CT scan of the head shows no acute intracranial abnormality, increas ed density in the right lobe suggests retinal detachment, age undetermined. V/Q scan shows intermedi ate probability V/Q scan for pulmonary embolism. Assessment And Plan: A 46-year-old female with: 1.Pneumonia, right middle lobe. We will continue with IV antibiotics. Follow up on cultures. 2.Urinary tract infection, acute cystitis without hematuria. Continue antibiotics. Urine culture p ending. 3.Acute on chronic kidney disease. Continue to monitor creatinine. Continue with IV fluids. 4.Hyperkalemia, corrected. 5.Essential hypertension, stable. Resume home medications. 6.Diabetes mellitus type 2 with long-term use of insulin with kidney complications, chronic kidney d isease stage 3. We will continue sliding scale insulin. The patient had some blood sugar levels on the low side at 63. We will continue to monitor. 7.Retinopathy and blindness. 8.Gastrointestinal and deep venous thrombosis prophylaxis with PPI and Lovenox, therapeutic dose. V /Q scan shows intermediate probability for pulmonary embolism. Doppler sono was negative for deep ve nous thrombosis. We will consult Pulmonology. Continue with therapeutic Lovenox for now. Repeat est imaging. /MILLIE Voice ID: [id number] Report ID: [id number]
[2017-09-22] MEDS ORDERED: MORPHINE 2 MG/ML SYR IV PRN (15:19)
[2017-09-22] MEDS ORDERED: INSULIN GLARGINE HUM REC ANLOG 80 UNIT SQ SCH (21:00)
[2017-09-22] MEDS ORDERED: INSULIN GLARGINE 100 UNITS/ML SQ SCH (21:00)
[2017-09-23] MEDS: NA CHLORIDE 0.9% 1,000 ML IV SCH ×2 (01:43→12:00)
[2017-09-23 05:00] LABS: Absolute Lymphocytes (CBC) 1.3 K/uL (0.7-4.9); Absolute Monocytes 0.5 K/uL (0.1-1.3); Absolute Neutrophil 4.9 K/uL (1.8-8.0); Basophils % 0.6 % (0-1.3); Eosinophils % 0.6 % (0-4.4); Hematocrit 26.7 % (36.0-45.0); Lymphocytes % 19.4 % (15.3-44.8); MCH 27.5 pg (27.0-35.0); MPV 9.5 fL (7.6-11.3); Monocytes % 7.6 % (3.3-12.3); RBC Red Blood Cell Count 3.26 M/uL (3.86-4.86)
[2017-09-23 05:21] LABS: Potassium 4.7 mmol/L (3.5-5.1)
[2017-09-23 06:04] VITALS: BMI 31.5
[2017-09-23] MEDS: INSULIN -REGULAR HUMAN 50 UNIT/0.5 ML ML SQ SCH ×4 (07:30→20:36)
[2017-09-23] MEDS: GABAPENTIN 100 MG CAP PO SCH ×3 (09:45→20:33)
[2017-09-23] MEDS: ENOXAPARIN 80 MG/0.8 ML SQ SCH (09:46)
[2017-09-23] MEDS: LISINOPRIL 10 MG TAB PO SCH (09:46)
--- NOTE | 2017-09-23 11:53 | P.CNS ---
Date of Consult: 09/23/17 Chief Complaint: Chest pain, abnormal V/Q scan History of Present Illness: Patient is 46 years of age admitted with sudden onset of pleuritic chest pain patient complained of substernal pain no cough phlegm complains of some chills no prior history of cardiopulmonary problems this was rather sudden in onset pain has improved he Q scan intermediate probability with a perfusion defect in the right upper lobe no evidence of DVT patient has peripheral neuropathy from her diabetes also has some discomfort Allergies piperacillin [From Zosyn] Adverse Reaction (Severe, Verified 11/10/15 23:45) Nausea/Vomiting tazobactam [From Zosyn] Adverse Reaction (Severe, Verified 11/10/15 23:45) Nausea/Vomiting Home Medications: Gabapentin [Neurontin] 100 mg PO TID 11/09/15 Insulin Glargine,Hum.rec.anlog [Toford Solostfawad] 80 unit SQ BEDTIME 11/09/15 Lisinopril 10 mg PO DAILY 11/09/15 - Past Medical/Surgical History Diabetic: Yes -: Diabetes type 2(insulin-dependent) -: Retinopathy -: Blindness -: Neuropathy, peripheral -: HTN - Family History Father Medical History: Diabetes - Social History Smoking Status: Never smoker Alcohol use: No CD- Drugs: No Caffeine use: No Place of Residence: Home Review of Systems 10-point ROS is otherwise unremarkable Physical Examination Temp Pulse Resp BP Pulse Ox 97.6 F 78 18 125/70 96 09/23/17 08:00 09/23/17 09:46 09/23/17 08:00 09/23/17 09:46 09/23/17 08:00 General: Alert, Oriented x3 Neck: Supple Respiratory: Clear to auscultation bilaterally Cardiovascular: No edema, Regular rate/rhythm Gastrointestinal: Normal bowel sounds, Soft and benign Musculoskeletal: No clubbing, No swelling - Problems (1) Chest pain Current Visit: Yes Status: Acute Plan: Patient is 46 years of age admitted with substernal pressure pain worse with inspiration history of diabetes renal failure diabetic retinopathy with nephropathy White count is normal PERC score for rule out pulmonary embolism is negative patient's D-dimer was elevated apart from the 1st episode of of pulse rate of 115 the rest of the time as been below 100 sats normal. Radiologist report. That this is pulmonary embolism she is very high risk for coronary artery disease and her symptoms are subtly suggestive patient is a cardiac evaluation There is a wedge-shaped perfusion defect in the posterosuperior right lung field. This is probably the correlate to the ventilation defect. Perfusion defect is larger than the ventilation defect. No other lobar, segmental or probable subsegmental defects. Patchy diminished activity in the posterior mid left lung field may be due to anatomic soft tissue overlap. IMPRESSION: Intermediate probability V/Q scan for pulmonary embolism. EKGs normal opponents also negative Dc IV fluids Dc IV antibiotics echocardiogram pending
--- NOTE | 2017-09-23 13:48 | PN ---
Date of Progress Note: 09/23/2017 Subjective: The patient seen and examined. Chart reviewed and case discussed with RN and Dr. Ledesma. The patient states she is doing significantly better. Her shortness of breath has improved. Review of Systems: Negative except as above. Medications: List reviewed. Physical Examination: Vital Signs: Temperature 97.6, heart rate 78, blood pressure 125/70, respirations 18, O2 of 96% on room air. General: Awake, alert, oriented x3. No acute distress. Appears older than stated age. Obese female. BMI 31. CV: S1, S2. No murmurs. Regular rate and rhythm. Peripheral pulses present. Respiratory: Moving air well bilaterally. No wheezing. No stridor. No use of accessory muscles. Gastrointestinal: Abdomen is soft, nontender, nondistended. Positive bowel sounds. No hepatomegaly. Extremities: No clubbing, cyanosis, or edema. Neurologic: Nonfocal. Laboratory Data: Sodium 144, potassium 4.7, chloride 113, CO2 of 25, BUN 20, creatinine 1.5, glucose 92, calcium 8.4. WBC 6.8, H and H 9 and 26.7, platelets 178. Blood cultures, no growth to date. Urine culture shows no growth. Sputum culture is pending. Assessment And Plan: A 46-year-old female with: 1. Right middle lobe pneumonia. Continue antibiotics. Cultures, no growth to date. I appreciate Dr. Ledesma's input. 2. Shortness of breath. V/Q scan shows intermediate probability for pulmonary embolism, currently on therapeutic Lovenox. Echocardiogram pending to rule out right ventricle strain. We will follow up with Pulmonology recommendations. 3. Urinary tract infection, acute cystitis without hematuria. We will continue antibiotics. Urine culture showing no growth. 4. [id number]-hmkwgcv kidney injury. Continue IV fluids. 5. Hyperkalemia, corrected. 6. Essential hypertension, stable. 7. 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 We will adjust long-acting insulin dose due to hypoglycemia. Monitor Accu-Cheks. 8. Retinopathy and blindness. 9. Gastrointestinal and deep venous thrombosis prophylaxis with proton-pump inhibitor and Lovenox. We will obtain cardiology consultation for further evaluation of cardiac disease as an etiology. Patient is several risk factors. SA/MODL Voice ID: [id number] Report ID: [id number] MYRIAM
--- NOTE | 2017-09-23 18:20 | ECHO ---
HEIGHT: 5 ft 4 in WEIGHT: 183 lb 12.8 oz DATE OF STUDY: 09/23/[address]: 2-DIMENSIONAL: YES M.MODE: YES DOPPLER: YES COLOR FLOW: YES TDS: NO PORTABLE: NO DEFINITY: NO BUBBLE STUDY: NO DIAGNOSIS: PULMONARY EMBOLISM/ SHORTNESS OF BREATH CARDIAC HISTORY: CATHERIZATION: NO SURGERY: NO PROSTHETIC VALVE: NO PACEMAKER: NO MEASUREMENTS (cm) DIASTOLIC (NORMALS) SYSTOLIC (NORMALS) IVSd 1.0 (0.6-1.2) LA Diam 3.6 (1.9-4.0) LVEF 75% LVIDd 4.2 (3.5-5.7) LVIDs 2.4 (2.0-3.5) %FS 43% LVPWd 1.2 (0.6-1.2) Ao Diam 3.1 (2.0-3.7) 2 DIMENSIONAL ASSESSMENT: RIGHT ATRIUM: NORMAL LEFT ATRIUM: NORMAL RIGHT VENTRICLE: NORMAL LEFT VENTRICLE: NORMAL TRICUSPID VALVE: NORMAL MITRAL VALVE: NORMAL PULMONIC VALVE: NORMAL AORTIC VALVE: NORMAL PERICARDIAL EFFUSION: NONE AORTIC ROOT: NORMAL LEFT VENTRICULAR WALL MOTION: NORMAL DOPPLER/COLOR FLOW: NORMAL COMMENTS: NORMAL 2D ECHOCARDIOGRAM WITH DOPPLER. TECHNOLOGIST: FAB PIERRE
[2017-09-23] MEDS: INSULIN GLARGINE 100 UNITS/ML SQ SCH (20:34)
--- NOTE | 2017-09-23 23:53 | CON ---
Chief Complaint: Chest pain. History Of Present Illness: Ms. Stewart has been in our hospital since Saturday. She had an episo de of chest pain and near syncope. She has diabetes, insulin dependent, chronic kidney disease, hype rtension. She awoke on the with chest pain. She has been in the hospital since then. Her labo ratory tests indicate there was not myocardial necrosis. Troponins are normal. EKG looks fine. She has had hyperkalemia and her creatinine has been 1.8 to 1.5. She has never had myocardial infarctio n, stroke, or vascular disease. Her electrocardiograms appear normal except there is mild sinus tach ycardia, heart rates 100 to 102. Chest x-ray is normal. Ventilation perfusion lung scan done reveals intermediate probability for pulmonary embolus. Study of her leg veins indicates no DVT. Impression: The patient's chest pain does not seem to be likely due to coronary artery disease. She seems to have a right middle lobe pneumonia. I think with all of her risk factors, with her present ing chest pain, at some point we want to do a nuclear stress test on her. I scheduled it for tomorro w. It could be delayed to an outpatient setting or later time if it becomes difficult to do it, but otherwise it is scheduled for tomorrow. MIC Voice ID: [id number] Report ID: [id number]
[2017-09-24 05:11] LABS: Absolute Lymphocytes (CBC) 1.8 K/uL (0.7-4.9); Absolute Monocytes 0.6 K/uL (0.1-1.3); Basophils % 0.7 % (0-1.3); Eosinophils % 2.5 % (0-4.4); Hematocrit 26.8 % (36.0-45.0); Lymphocytes % 27.3 % (15.3-44.8); MCH 27.4 pg (27.0-35.0); MCV 81.2 fL (80-100); MPV 9.5 fL (7.6-11.3); Monocytes % 9.1 % (3.3-12.3)
[2017-09-24 05:16] LABS: Albumin 2.9 g/dL (3.4-5.0); Bilirubin Total 0.2 mg/dL (0.2-1.0); Potassium 4.5 mmol/L (3.5-5.1); Protein, Total 6.8 g/dL (6.4-8.2)
[2017-09-24] MEDS: INSULIN -REGULAR HUMAN 50 UNIT/0.5 ML ML SQ SCH ×4 (07:30→20:53)
[2017-09-24] MEDS: GABAPENTIN 100 MG CAP PO SCH ×3 (08:16→20:53)
[2017-09-24] MEDS: ENOXAPARIN 80 MG/0.8 ML SQ SCH (08:17)
[2017-09-24] MEDS: LISINOPRIL 10 MG TAB PO SCH (08:17)
[2017-09-24] MEDS ORDERED: REGADENOSON 0.4 MG/5 ML SYR IV ONE (09:26)
--- NOTE | 2017-09-24 11:56 | TREADPHA ---
DX: CHEST PAIN Date of Study: 09/24/2017 Ht: 5 4 Wt: 183 lb 12.8 oz Consulting Physician: TALA MEDICATIONS: TYLENOL, LOVENOX, NEURONTIN, LANTUS, NOVOLIN R, PRINIVIL, ZOFRAN HISTORY: 46 YEAR OLD FEMALE WITH COMPLAINTS OF CHEST PAIN. HISTORY OF DIABETES MELLITUS, HYPERTENSION, NEUROPATHY. PHYSICIAL EXAMINATION: RESTING B.P.: 137/88 RESTING H.R.: 75 RESTING EKG: NORMAL PROTOCOL: LEXISCAN EXERCISE TIME: 3:30 B.P. AT PEAK STRESS: 126/71 IMPRESSION: LEXISCAN INJECTED. CARDIOLITE INJECTED PER PROTOCOL. NUCLEAR MEDICINE REPORT. NO CHEST PAIN. NO VENTRICULAR TACHYCARDIA. NO SUPRAVENTRICULAR TACHYCARDIA. NON DIAGNOSTIC EKG WITH LEXISCAN STRESS.
--- NOTE | 2017-09-24 11:59 | RAD REPORT ---
EXAM DESCRIPTION: NM - Rest Stress Cardiac Imaging - 09/24/2017 11:33 am CLINICAL HISTORY: Chest pain. COMPARISON: None. TECHNIQUE: The patient was administered approximately 10mCi of Tc 99m Sestamibi prior to resting SPE CT imaging of the heart. The patient was then administered approximately 30 mCi of Tc 99m Sestamibi f ollowing exercise or pharmacologic stress. Multiplanar SPECT images were reviewed. FINDINGS: There is uniformity of radiotracer uptake involving the entire left ventricular myocardiu m on rest and stress images. The left ventricular ejection fraction equals 74% IMPRESSION: Negative for a myocardial perfusion defect
[2017-09-24] MEDS: ACETAMINOPHEN 500 MG TAB PO PRN (12:15)
--- NOTE | 2017-09-24 13:50 | RAD REPORT ---
EXAM DESCRIPTION: CT - [place] Wo Con - 09/24/2017 1:31 pm CLINICAL HISTORY: Chest pain COMPARISON: September 21 x-ray TECHNIQUE: Computed axial tomography of the chest was obtained. Contrast was not requested. All CT scans are performed using dose optimization technique as appropriate and may include automated exposure control or mA/KV adjustment according to patient size. FINDINGS: The evaluation of mediastinum, amy and vessels is limited secondary to lack of IV contras t administration. Mild alveolar opacities are present within the lower lobes posteriorly bilaterally. Minimal lingular opacity is present No mediastinal or hilar lymphadenopathy is seen. Mild left pleural thickening is present. A pleural effusion is not seen. A pericardial effusion is no t noted. IMPRESSION: Mild bilateral lower lobe pneumonia
--- NOTE | 2017-09-24 14:30 | P.PN ---
Subjective Date of Service: 09/24/17 Chief Complaint: Chest pain, abnormal V/Q scan doing better less chest pain sob Physical Examination - Vital Signs Temperature: 98.5 F Blood Pressure: 137/80 Pulse: 88 Respirations: 16 Pulse Ox (%): 98 - Physical Exam General: Alert, In no apparent distress HEENT: Atraumatic, PERRLA, EOMI Neck: Supple, JVD not distended Respiratory: Clear to auscultation bilaterally, Normal air movement Cardiovascular: Regular rate/rhythm, Normal S1 S2 Gastrointestinal: Normal bowel sounds, No tenderness Musculoskeletal: No tenderness Integumentary: No rashes Neurological: Normal speech, Normal tone, Normal affect Lymphatics: No axilla or inguinal lymphadenopathy - Studies Medications List Reviewed: Yes Assessment And Plan - Current Problems (Diagnosis) (1) Pulmonary embolism Current Visit: Yes Status: Acute (2) Chest pain Current Visit: Yes Status: Acute (3) Diabetes mellitus Onset Date: 09/23/17 Current Visit: Yes Status: Acute Qualifiers: Diabetes mellitus type: type 2 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 insulin use: with middle or intermediate school principal use Diabetes mellitus complication status: with kidney complications Diabetes mellitus complication detail: with chronic kidney disease Chronic kidney disease stage: stage 3 (moderate) Qualified Code(s): E11.22 - Type 2 diabetes mellitus with diabetic chronic kidney disease; N18.3 - Chronic kidney disease, stage 3 (moderate); Z79.4 - superintendent container terminal (current) use of insulin (4) Hypertension Onset Date: 09/23/17 Current Visit: Yes Status: Acute Qualifiers: Hypertension type: essential hypertension Qualified Code(s): I10 - Essential (primary) hypertension (5) Pneumonia Onset Date: 09/23/17 Current Visit: Yes Status: Acute Qualifiers: Pneumonia type: due to unspecified organism Laterality: right Lung location: middle lobe of lung Qualified Code(s): J18.1 - Lobar pneumonia, unspecified organism - Plan cont IV ABX Cont Lovenox Stress Test today
[2017-09-24] MEDS: INSULIN GLARGINE 100 UNITS/ML SQ SCH (20:54)
[2017-09-25 05:52] LABS: Absolute Lymphocytes (CBC) 2.2 K/uL (0.7-4.9); Absolute Monocytes 0.6 K/uL (0.1-1.3); Absolute Neutrophil 4.6 K/uL (1.8-8.0); Basophils % 0.5 % (0-1.3); Eosinophils % 2.3 % (0-4.4); Hematocrit 28.7 % (36.0-45.0); Lymphocytes % 28.5 % (15.3-44.8); MCH 26.9 pg (27.0-35.0); MPV 8.8 fL (7.6-11.3); Monocytes % 7.5 % (3.3-12.3); RBC Red Blood Cell Count 3.59 M/uL (3.86-4.86)
[2017-09-25 06:08] LABS: Bilirubin Total 0.4 mg/dL (0.2-1.0); Potassium 4.6 mmol/L (3.5-5.1); Protein, Total 7.2 g/dL (6.4-8.2)
[2017-09-25] MEDS: INSULIN -REGULAR HUMAN 50 UNIT/0.5 ML ML SQ SCH ×2 (07:30→11:30)
[2017-09-25] MEDS: ENOXAPARIN 80 MG/0.8 ML SQ SCH (10:05)
[2017-09-25] MEDS: GABAPENTIN 100 MG CAP PO SCH (10:05)
[2017-09-25] MEDS: LISINOPRIL 10 MG TAB PO SCH (10:05)
[2017-09-25 11:09] VITALS: O2SAT 97
[2017-09-25 12:14] VITALS: BP 138/81; TEMP 97.6
--- NOTE | 2017-09-25 16:13 | P.DS ---
Admission Date: 09/21/17 Discharge Date: 09/25/17 Disposition: ROUTINE DISCHARGE Discharge Condition: FAIR Reason for Admission: Chest pain, abnormal V/Q scan - Problems (1) Pulmonary embolism Status: Acute Qualifiers: Chronicity: acute Acute cor pulmonale presence: without acute cor pulmonale (2) Chest pain Status: Acute Qualifiers: Chest pain type: chest pain on breathing Qualified Code(s): R07.1 - Chest pain on breathing; R07.81 - Pleurodynia (3) Diabetes mellitus Onset Date: 09/23/17 Status: Chronic Qualifiers: Diabetes mellitus type: type 2 Diabetes mellitus shelter insulin use: with manipulative therapy specialist use Diabetes mellitus complication status: with kidney complications Diabetes mellitus complication detail: with chronic kidney disease Chronic kidney disease stage: stage 3 (moderate) Qualified Code(s): E11.22 - Type 2 diabetes mellitus with diabetic chronic kidney disease; N18.3 - Chronic kidney disease, stage 3 (moderate); Z79.4 - correction (current) use of insulin (4) Hypertension Onset Date: 09/23/17 Status: Chronic Qualifiers: Hypertension type: essential hypertension Qualified Code(s): I10 - Essential (primary) hypertension (5) Pneumonia Onset Date: 09/23/17 Status: Resolved Qualifiers: Pneumonia type: due to unspecified organism Laterality: right Lung location: middle lobe of lung Qualified Code(s): J18.1 - Lobar pneumonia, unspecified organism Brief History of Present Illness: Ms Stewart is a 46-year-old woman, with history of insulin-dependent diabetes mellitus, chronic kidney disease, hypertension, would this morning starts having substernal chest pain associated with shortness of breath. The pain was getting worse with breathing moment and any kind of chest moment. She denied any fever or chills. She denied cough associated with. She also states that has been dizzy since this morning. The chest pain lasts until she came to the hospital on received morphine. The pain was constant, intensity 9/10. At arrival the patient was tachycardic HR 115 BPM, temp was 99.4 F, BP 147/92, O2 sat 100% on room air. Lab work remarkable for leukocytosis 11.1 K, hyperkalemia 5.6, and creatinines level more elevated than his baseline. UA abnormal consistent with UTI, chest-x-ray remarkable for right parahilar opacity consistent with possible early pneumonia Hospital Course: VQ scan shows PE. Stress Test is normal. She was treated with full dose Lovenox , followed by [place]. She is discharged home on Eliquis. No evidence of pneumonia. Vital Signs/Physical Exam: Temp Pulse Resp BP Pulse Ox 97.6 F 83 16 138/81 99 09/25/17 12:00 09/25/17 12:00 09/25/17 12:00 09/25/17 12:00 09/25/17 12:00 General: Alert, In no apparent distress HEENT: Atraumatic, PERRLA, EOMI Neck: Supple, JVD not distended Respiratory: Clear to auscultation bilaterally, Normal air movement Cardiovascular: Regular rate/rhythm, Normal S1 S2 Gastrointestinal: Normal bowel sounds, No tenderness Musculoskeletal: No tenderness Integumentary: No rashes Neurological: Normal speech, Normal tone, Normal affect Lymphatics: No axilla or inguinal lymphadenopathy Laboratory Data at Discharge: WBC 7.6 K/uL (4.3-10.9) D 09/25/17 05:33 Hgb 9.6 g/dL (12.0-15.0) L 09/25/17 05:33 Hct 28.7 % (36.0-45.0) L 09/25/17 05:33 Plt Count 216 K/uL (152-406) 09/25/17 05:33 PT 11.9 SECONDS (9.5-12.5) 09/21/17 14:06 INR 1.01 09/21/17 14:06 APTT 32.0 SECONDS (24.3-36.9) 09/21/17 14:06 Sodium 144 mmol/L (136-145) 09/25/17 05:33 Potassium 4.6 mmol/L (3.5-5.1) 09/25/17 05:33 BUN 24 mg/dL (7-18) H 09/25/17 05:33 Creatinine 1.50 mg/dL (0.55-1.3) H 09/25/17 05:33 Glucose 81 mg/dL (74-106) 09/25/17 05:33 Magnesium 2.3 mg/dL (1.8-2.4) 09/21/17 14:06 Total Bilirubin 0.4 mg/dL (0.2-1.0) 09/25/17 05:33 AST 25 U/L (15-37) 09/25/17 05:33 ALT 23 U/L (12-78) 09/25/17 05:33 Alkaline Phosphatase 82 U/L (45-117) 09/25/17 05:33 Troponin I < 0.02 ng/mL (0.0-0.045) 09/22/17 03:36 Home Medications: Gabapentin [Neurontin*] 100 mg PO TID 11/09/15 Insulin Glargine,Hum.rec.anlog [Angie Burns] 80 unit SQ BEDTIME 11/09/15 Lisinopril 10 mg PO DAILY 11/09/15 Apixaban [Eliquis] 5 mg PO BID #60 tablet 09/25/17 New Medications: Apixaban [Eliquis] 5 mg PO BID #60 tablet Diet: Regular Activity: Ad maximo Followup: Althea Grant DO [Primary Care Provider] - 1 Week Time spent managing pt's care (in minutes): 15
== END 2017-09-25 13:52 | disposition home or self-care (01) ==
LOC: ER 13:27 → ERHOLD 18:34 → 4TH 21:01
PROVIDERS: ADMIT Family Medicine; ATTEND Internal Medicine
DX: I26.99 Other pulmonary embolism without acute cor pulmonale (principal); J18.9 Pneumonia, unspecified organism; I12.9 Hypertensive chronic kidney disease with stage 1 through stage 4 chronic kidney disease, or unspecified chronic kidney disease; E11.22 Type 2 diabetes mellitus with diabetic chronic kidney disease; N18.3 Chronic kidney disease, stage 3 (moderate); N17.9 Acute kidney failure, unspecified; N30.00 Acute cystitis without hematuria; E87.5 Hyperkalemia; H35.00 Unspecified background retinopathy; E11.319 Type 2 diabetes mellitus with unspecified diabetic retinopathy without macular edema
CPT/HCPCS: 36415 ×4; 70450; 71045; 71250; 78452; 78582; 80048 ×3; 80053 ×3; 80076; 81003; 81025; 82550; 82553; 82962 ×21; 83735; 83880; 84132; 84484 ×3; 85025 ×5; 85379; 85610; 85730; 87040 ×2; 87088; 93005; 93017; 93306; 93970; 94760 ×2; 96361; 96365; 96375; 99285; A9500; A9540; A9558; J0696; J1650 ×6; J2270 ×3; J2405; J2785; J7030 ×5; 87086; G0378

== ENCOUNTER 2018-04-18 16:56 | Observation (INO) | payer OTHER ==
--- OUTSIDE RECORDS SUMMARY | 2018-04-18 16:59 | XMS REPORT ---
:1970 Author Organization [employer] Care Team Providers Name Role Phone Grant, Na Provider Role Unavailable Allergies No Known Allergies Problems Problem Type Condition Code Onset Dates Condition Status Problem Microalbuminuria R80.9 Active Problem Hyperlipidemia E78.5 Active Problem Diabetes E11.9 Active Problem Excessive bleeding in N92.4 Active premenopausal period Assessment Type 2 diabetes mellitus with E11.65 Active hyperglycemia Problem Proliferative diabetic retinopathy E11.3592 Active of left eye associated with type 2 diabetes mellitus, unspecified proliferative retinopathy type Assessment Benign essential HTN I10 Active Assessment Other acute pulmonary embolism I26.99 Active without acute cor pulmonale Problem Chronic fatigue R53.82 Active Problem Moderate episode of recurrent F33.1 Active major depressive disorder Problem Type 2 diabetes mellitus with E11.37X3 Active diabetic macular edema, resolved following treatment, bilateral Problem 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 neuropathy Problem Chronic kidney disease, stage 3 N18.3 Active Problem Trigger finger M65.30 Active Problem Legal blindness H54.8 Active Problem Type 2 diabetes mellitus with E11.65 Active hyperglycemia Problem Anemia D64.9 Active Problem Vitamin D deficiency E55.9 Active Problem 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 Z79.4 Active Problem Benign essential HTN I10 Active Assessment Moderate episode of recurrent F33.1 Active major depressive disorder Problem Depression with anxiety F41.8 Active Problem Neuropathy G62.9 Active Medications Medication Code Code Instructions Start End Status Dosage System Date Date Citalopram ND 56261640526 10 MG Orally Feb 25, Active 1 tablet Hydrobromide Once a day 2018 Angie FuentesMickie [place] [id number] 300 UNIT/ML Active 60 units Subcutaneous once a day Eliquis 5 mg ND 33601393116 5 mg by mouth Active one twice daily Lisinopril [facility] 77182739175 20 MG Orally Active 1 tablet Once a day Results No Known Results Summary Purpose eClinicalWorks Submission
--- OUTSIDE RECORDS SUMMARY | 2018-04-18 16:59 | XMS REPORT ---
:1970 Author Organization [employer] Care Team Providers Name Role Phone Grant, Na Provider Role Unavailable Allergies No Known Allergies Problems Problem Type Condition Code Onset Dates Condition Status Problem [facility]DC current use of insulin Z79.4 Active Problem Anemia D64.9 Active Problem Depression with anxiety F41.8 Active Problem Hyperlipidemia E78.5 Active Problem Diabetes E11.9 Active Problem Proliferative diabetic retinopathy E11.3592 Active of left eye associated with type 2 diabetes mellitus, unspecified proliferative retinopathy type Problem Benign essential HTN I10 Active Problem Vitamin D deficiency E55.9 Active Problem Microalbuminuria R80.9 Active Problem Neuropathy G62.9 Active Problem 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 neuropathy Problem Chronic kidney disease, stage 3 N18.3 Active Problem Type 2 diabetes mellitus with E11.65 Active hyperglycemia Problem Type 2 diabetes mellitus with E11.37X3 Active diabetic macular edema, resolved following treatment, bilateral Problem Trigger finger M65.30 Active Problem Moderate episode of recurrent F33.1 Active major depressive disorder Problem Legal blindness H54.8 Active Medications No Known Medications Results No Known Results Summary Purpose eClinicalWorks Submission
--- OUTSIDE RECORDS SUMMARY | 2018-04-18 16:59 | XMS REPORT ---
:1970 Author Organization [employer] Care Team Providers Name Role Phone Grant, Na Provider Role Unavailable Allergies, Adverse Reactions, Alerts Substance Reaction Event Type N.K.D.A. Info Not Available Non Drug Allergy Problems Problem Type Condition Code Onset Dates Condition Status Problem shelter current use of insulin Z79.4 Active Problem Anemia D64.9 Active Problem Depression with anxiety F41.8 Active Problem Hyperlipidemia E78.5 Active Assessment Benign essential HTN I10 Active Problem Diabetes E11.9 Active Assessment Hyperlipidemia E78.5 Active Assessment Chronic kidney disease, stage 3 N18.3 Active Problem Proliferative diabetic retinopathy E11.3592 Active of left eye associated with type 2 diabetes mellitus, unspecified proliferative retinopathy type Problem Benign essential HTN I10 Active Problem Vitamin D deficiency E55.9 Active Problem Microalbuminuria R80.9 Active Problem Neuropathy G62.9 Active Problem 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 neuropathy Assessment Type 2 diabetes mellitus with E11.65 Active hyperglycemia Assessment Other acute pulmonary embolism I26.99 Active without acute cor pulmonale Problem Chronic kidney disease, stage 3 N18.3 Active Problem Type 2 diabetes mellitus with E11.65 Active hyperglycemia Assessment Anemia D64.9 Active Problem Type 2 diabetes mellitus with E11.37X3 Active diabetic macular edema, resolved following treatment, bilateral Problem Trigger finger M65.30 Active Assessment Moderate episode of recurrent F33.1 Active major depressive disorder Problem Moderate episode of recurrent F33.1 Active major depressive disorder Problem Legal blindness H54.8 Active Medications Medication Code Code Instructions Start End Status Dosage System Date Date Paxil [facility] 21310916523 20 MG Orally Active 1 tablet in Once a day the morning Eliquis 5 mg ND 43433904398 5 mg by mouth Oct 01Mar Active one twice daily 2017 Angie FuentesMickie ND 44734402886 300 UNIT/ML Active 80 units Subcutaneous once a day Lisinopril ND 75942551005 20 MG Orally Active 1 tablet Once a day Glimepiride ND 85785334868 2 MG Orally Inactive 1 tablet with Once a day breakfast or the first main meal of the day Pravastatin [facility] 61454460882 20 MG Orally Active 1 tablet Sodium Once a day Gabapentin [facility] 42002621400 300 MG Orally Active 2 capsule Once a day before bedtime Clotrimazole [facility] 82027909718 1 % Externally Active 1 application Twice a day to affected area Ferralet 90 [facility] 59687452697 90-1 MG Orally Inactive 1 tablet Once a day Lipitor [facility] 88578966464 10 MG Orally Inactive 1 tablet Once a day Results No Known Results Summary Purpose [employer]Works Submission
--- OUTSIDE RECORDS SUMMARY | 2018-04-18 16:59 | XMS REPORT ---
[...] H54.8 Active Assessment Hyperlipidemia E78.5 Active Problem correction current use of insulin Z79.4 Active Problem [...] diabetes with peripheral E13.42 Active neuropathy Assessment correction current use of insulin Z79.4 Active Assessment [...]
--- OUTSIDE RECORDS SUMMARY | 2018-04-18 16:59 | XMS REPORT ---
:1970 Author Organization [employer] Care Team Providers Name Role Phone Grant, Na Provider Role Unavailable Allergies No Known Allergies Problems Problem Type Condition Code Onset Dates Condition Status Problem Microalbuminuria R80.9 Active Problem Hyperlipidemia E78.5 Active Problem Diabetes E11.9 Active Problem Excessive bleeding in N92.4 Active premenopausal period Problem Proliferative diabetic retinopathy E11.3592 Active of left eye associated with type 2 diabetes mellitus, unspecified proliferative retinopathy type Problem Chronic fatigue R53.82 Active Problem Moderate [...] Problem Vitamin D deficiency E55.9 Active Problem termite technician current use of insulin Z79.4 Active Problem Benign essential HTN I10 Active Problem Depression with anxiety F41.8 Active Problem Neuropathy G62.9 Active Medications No Known Medications Results No Known Results Summary Purpose eClinicalWorks Submission
--- OUTSIDE RECORDS SUMMARY | 2018-04-18 16:59 | XMS REPORT ---
[...] Problem Vitamin D deficiency E55.9 Active Problem prison current use of insulin Z79.4 Active Problem Benign essential HTN I10 Active Problem Depression with anxiety F41.8 Active Problem Neuropathy G62.9 Active Medications Medication Code Code Instructions Start End Status Dosage System Date Date FreeStyle NDC [id number] - sc every Mar 05, Active as directed Suleiman Sensor 2018 System FreeStyle NDC [id number] - [place] dailyMar 05, Active as directed Suleiman [place] 2018 Results No Known Results Summary Purpose eClinicalWorks Submission
--- OUTSIDE RECORDS SUMMARY | 2018-04-18 16:59 | XMS REPORT ---
:1970 Author Organization [employer] Care Team Providers Name Role Phone Grant, Na Provider Role Unavailable Allergies No Known Allergies Problems Problem Type Condition Code Onset Dates Condition Status Problem intermediate current use of insulin Z79.4 [...]
--- OUTSIDE RECORDS SUMMARY | 2018-04-18 17:00 | XMS REPORT ---
:1970 Author Organization e[employer] Care Team Providers Name Role Phone Grant, Na Provider Role Unavailable Allergies, Adverse Reactions, Alerts Substance Reaction Event Type N.K.D.A. 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 major depressive disorder Problem Benign essential HTN I10 Active Assessment Chronic kidney disease, stage 3 N18.3 Active Problem Neuropathy G62.9 Active Assessment Anemia D64.9 Active Problem Microalbuminuria R80.9 Active Problem Hyperlipidemia E78.5 Active Problem Diabetes E11.9 Active Problem Excessive bleeding in N92.4 Active premenopausal period Problem Proliferative diabetic retinopathy E11.3592 Active of left eye associated with type 2 diabetes mellitus, unspecified proliferative retinopathy type Assessment Type 2 diabetes mellitus with E11.65 Active hyperglycemia Assessment Benign essential HTN I10 Active Problem Chronic fatigue R53.82 Active Assessment Hyperlipidemia E78.5 Active Problem Moderate episode of recurrent F33.1 [...] Problem Vitamin D deficiency E55.9 Active Problem correction current use of insulin Z79.4 Active Problem Depression with anxiety F41.8 Active Medications Medication Code Code Instructions Start End Status Dosage System Date Date Eliquis 5 mg ND 86295935313 5 mg by mouth Active one twice daily Citalopram ND 05712088754 10 MG Orally Feb 25, Active 1 tablet Hydrobromide Once a day 2018 Paxil ND 09471847755 20 MG Orally Inactive 1 tablet in Once a day the morning Toranjeeto GinaoStar [facility] 65736352237 300 UNIT/ML Active 60 units Subcutaneous once a day Gabapentin [facility] 41252324930 300 MG Orally Active 2 capsule Once a day before bedtime Ferralet 90 [facility] 57562658343 90-1 MG Orally Inactive 1 tablet Once a day Lisinopril [facility] 04685632328 20 MG Orally Active 1 tablet Once a day Pravastatin [facility] 74800343119 20 MG Orally Inactive 1 tablet Sodium Once a day Clotrimazole [facility] 72192138925 1 % Externally Active 1 application Twice a day to affected area Results No Known Results Summary Purpose eClinicalWorks Submission
[2018-04-18] MEDS ORDERED: ONDANSETRON 4 MG/2 ML VIAL ONE (18:58)
[2018-04-18] MEDS ORDERED: NA CHLORIDE 0.9% 1,000 ML ONE ×2 (18:58→20:38)
[2018-04-18 19:16] LABS: Absolute Lymphocytes (CBC) 1.4 K/uL (0.7-4.9); Absolute Monocytes 0.7 K/uL (0.1-1.3); Absolute Neutrophil 6.5 K/uL (1.8-8.0); Basophils % 0.4 % (0-1.3); Eosinophils % 2.7 % (0-4.4); Hematocrit 36.6 % (36.0-45.0); Lymphocytes % 15.5 % (15.3-44.8); MPV 9.5 fL (7.6-11.3); Monocytes % 8.4 % (3.3-12.3); RBC Red Blood Cell Count 4.47 M/uL (3.86-4.86)
[2018-04-18 19:33] LABS: Albumin 3.6 g/dL (3.4-5.0); Bilirubin Direct 0.1 mg/dL (0-0.2); Bilirubin Total 0.3 mg/dL (0.2-1.0); Potassium 4.1 mmol/L (3.5-5.1); Protein, Total 8.6 g/dL (6.4-8.2)
[2018-04-18 20:07] LABS: Urine Amorphous Sediment 1+ /HPF (NONE SEEN); Urine Bacteria 20-50 /HPF (<20); Urine Mucus 1+ /HPF (NONE SEEN); Urine RBC <5 /HPF (NONE SEEN)
[2018-04-18 20:08] LABS: Urine Culture Reflex Order REFLEXED
[2018-04-18 20:10] LABS: Urine Blood NEGATIVE (NEG); Urine Glucose NEGATIVE (NEG); Urine Specific Gravity 1.025 (1.005-1.030)
[2018-04-18 20:11] LABS: Urine Protein 2+ (NEG)
--- NOTE | 2018-04-18 20:34 | ER ---
Nurse's Notes [facility] Name: Tyra Stewart Age: 47 yrs Sex: Female : 1970 Arrival Date: 04/18/2018 Time: 16:58 Bed 17 Private MD: Althea Grant Diagnosis: Vomiting;Diarrhea, unspecified;Dehydration;Acute kidney failure Presentation: 04/18 17:00 Presenting complaint: Patient states: n/v/d, lightheaded x 2 days. Transition of care: sv patient was not received from another setting of care. Onset of symptoms was April 16, 2018. Care prior to arrival: None. 17:00 Method Of Arrival: Ambulatory sv 17:00 Acuity: TASHI 3 sv 18:50 Risk Assessment: Do you want to hurt yourself or someone else? Patient reports no em desire to harm self or others. Initial Sepsis Screen: Does the patient meet any 2 criteria? No. Patient's initial sepsis screen is negative. Does the patient have a suspected source of infection? No. Patient's initial sepsis screen is negative. Triage Assessment: 17:02 General: Appears in no apparent distress. uncomfortable, Behavior is calm, cooperative, sv appropriate for age. Pain: Denies pain. Neuro: Level of Consciousness is awake, alert, obeys commands, Oriented to person, place, time, situation, Gait is steady. Respiratory: Respiratory effort is even, unlabored, Respiratory pattern is regular, symmetrical. GI: Reports diarrhea, nausea, tolerance of fluids, vomiting. Historical: - Allergies: 17:01 No Known Allergies; sv - PMHx: 17:01 Diabetes - IDDM; Hypertension; kidney failure; PE in right lung; sv - Immunization history:: Adult Immunizations up to date. - Social history:: Smoking status: unknown. - Ebola Screening: : Patient negative for fever greater than or equal to 101.5 degrees Fahrenheit, and additional compatible Ebola Virus Disease symptoms Patient denies exposure to infectious person Patient denies travel to an Ebola-affected area in the 21 days before illness onset No symptoms or risks identified at this time. Screenin:50 Abuse screen: Denies threats or abuse. Nutritional screening: No deficits noted. em Tuberculosis screening: No symptoms or risk factors identified. Fall Risk None identified. Assessment: 18:50 General: Appears in no apparent distress. uncomfortable, Behavior is calm, cooperative. em Pain: Denies pain. Neuro: Level of Consciousness is awake, alert, obeys commands, Oriented to person, place, time, situation, Reports dizziness, Denies weakness. Cardiovascular: Capillary refill < 3 seconds Patient's skin is warm and dry. Respiratory: Airway is patent Respiratory effort is even, unlabored, Respiratory pattern is regular, symmetrical. GI: Abdomen is flat, Bowel sounds present X 4 quads. Abd is soft and non tender X 4 quads. Reports diarrhea, nausea, vomiting, Patient currently denies abdominal pain. : No signs and/or symptoms were reported regarding the genitourinary system. Derm: Skin is intact, is healthy with good turgor, Skin is pink, warm \T\ dry. Musculoskeletal: Range of motion: intact in all extremities. 18:59 Reassessment: I agree with previous assessment. hb Vital Signs: 17:01 BP 120 / 79; Pulse 100; Resp 20; Temp 98; Pulse Ox 98% ; Weight 81.65 kg; Height 5 ft. sv 4 in. (162.56 cm); Pain 0/10; 18:50 BP 109 / 74; Pulse 88; Resp 18; Pulse Ox 97% on R/A; Pain 0/10; em 17:01 Body Mass Index 30.90 (81.65 kg, 162.56 cm) sv ED Course: 16:58 Patient arrived in ED. as 16:58 Althea Grant MD is Private Physician. as 17:01 Triage completed. sv 17:02 Arm band placed on. sv 18:32 Jean-Paul Interiano NP is PHCP. pm1 18:32 Ronan Conklin MD is Attending Physician. pm1 18:43 Antolin Mccracken LVN is Primary Nurse. em 18:50 Patient has correct armband on for positive identification. Placed in gown. Bed in low em position. Call light in reach. Side rails up X2. Adult w/ patient. Pulse ox on. NIBP on. 20:32 Trudy Thomas MD is Hospitalizing Provider. pm1 22:39 No provider procedures requiring assistance completed. Inserted saline lock: 22 gauge ak1 in right antecubital area, using aseptic technique. ,using aseptic technique. placed by Antolin Lopez LVN prior to cook night. Patient admitted, IV remains in place. Administered Medications: 19:05 Drug: NS 0.9% 1000 ml Route: IV; Rate: 1000 ml; Site: right antecubital; ak1 20:22 Follow up: IV Status: Completed infusion ak1 19:05 Drug: Zofran 4 mg Route: IVP; Site: right antecubital; ak1 20:21 Follow up: Response: No adverse reaction ak1 20:31 Drug: NS 0.9% 1000 ml Route: IV; Rate: 1 bolus; Site: right antecubital; ak1 21:24 Follow up: IV Status: Completed infusion ak1 Outcome: 20:33 Decision to Hospitalize by Provider. pm1 22:38 Admitted to Med/surg accompanied by tech, family with patient, via wheelchair, room ak1 224, with chart. 22:38 Condition: good 22:38 Instructed on the need for admit. 23:19 Patient left the ED. ak1 Signatures: Skye Olivera RN RN sv Munoz, Edgar, FUR BLOWER FUR BLOWER Tamara Cannon Amber, RN RN ak1 Jean-Paul Interiano, TOUCH UP CARVER TOUCH UP CARVER pm1 Amada Aguilar RN RN hb
--- NOTE | 2018-04-18 20:34 | EDPHYS ---
Physician Documentation [facility] Name: Tyra Stewart Age: 47 yrs Sex: Female : 1970 Arrival Date: 04/18/2018 Time: 16:58 Bed 17 Private MD: Althea Grant ED Physician Ronan Conklin HPI: 04/18 20:28 This 47 yrs old Female presents to ER via Ambulatory with complaints of pm1 Vomiting/Diarrhea. 20:28 The patient presents to the emergency department with nausea, vomiting, diarrhea. pm1 Onset: The symptoms/episode began/occurred 2 day(s) ago. Possible causes: sick contacts, by family, daughter, granddaughter. The symptoms are aggravated by nothing. The symptoms are alleviated by nothing. 20:28 Associated signs and symptoms: Pertinent positives: Abdominal cramping with diarrhea, pm1 Pertinent negatives: dysuria, fever. Severity of symptoms: in the emergency department the symptoms are unchanged Pain is currently a 0 / 10. The patient has not recently seen a physician, the patient's primary care provider is Dr. Grant. Patient with vomiting and diarrhea for 2 days. Abdomina cramping with diarrhea. Poor PO intake with vomiting for the past two days. Historical: - Allergies: 17:01 No Known Allergies; sv - PMHx: 17:01 Diabetes - IDDM; Hypertension; kidney failure; PE in right lung; sv - Immunization history:: Adult Immunizations up to date. - Social history:: Smoking status: unknown. - Ebola Screening: : Patient negative for fever greater than or equal to 101.5 degrees Fahrenheit, and additional compatible Ebola Virus Disease symptoms Patient denies exposure to infectious person Patient denies travel to an Ebola-affected area in the 21 days before illness onset No symptoms or risks identified at this time. ROS: 20:28 Constitutional: Negative for fever, chills, and weight loss, Eyes: Negative for injury, pm1 pain, redness, and discharge, ENT: Negative for injury, pain, and discharge, Neck: Negative for injury, pain, and swelling, Cardiovascular: Negative for chest pain, palpitations, and edema, Respiratory: Negative for shortness of breath, cough, wheezing, and pleuritic chest pain. 20:28 Back: Negative for injury and pain, : Negative for injury, bleeding, discharge, and swelling, MS/Extremity: Negative for injury and deformity, Skin: Negative for injury, rash, and discoloration, Neuro: Negative for headache, weakness, numbness, tingling, and seizure. 20:28 Abdomen/GI: Positive for abdominal pain, nausea, vomiting, and diarrhea, abdominal cramps, Negative for constipation. Exam: 20:28 Constitutional: This is a well developed, well nourished patient who is awake, alert, pm1 and in no acute distress. Head/Face: Normocephalic, atraumatic. Eyes: Pupils equal round and reactive to light, extra-ocular motions intact. Lids and lashes normal. Conjunctiva and sclera are non-icteric and not injected. Cornea within normal limits. Periorbital areas with no swelling, redness, or edema. ENT: Nares patent. No nasal discharge, no septal abnormalities noted. Tympanic membranes are normal and external auditory canals are clear. Oropharynx with no redness, swelling, or masses, exudates, or evidence of obstruction, uvula midline. Mucous membranes moist. Neck: Trachea midline, no thyromegaly or masses palpated, and no cervical lymphadenopathy. Supple, full range of motion without nuchal rigidity, or vertebral point tenderness. No Meningismus. Chest/axilla: Normal chest wall appearance and motion. Nontender with no deformity. No lesions are appreciated. Cardiovascular: Regular rate and rhythm with a normal S1 and S2. No gallops, murmurs, or rubs. Normal PMI, no JVD. No pulse deficits. Respiratory: Lungs have equal breath sounds bilaterally, clear to auscultation and percussion. No rales, rhonchi or wheezes noted. No increased work of breathing, no retractions or nasal flaring. Abdomen/GI: Soft, non-tender, with normal bowel sounds. No distension or tympany. No guarding or rebound. No evidence of tenderness throughout. Back: No spinal tenderness. No costovertebral tenderness. Full range of motion. Skin: Warm, dry with normal turgor. Normal color with no rashes, no lesions, and no evidence of cellulitis. 20:28 MS/ Extremity: Pulses equal, no cyanosis. Neurovascular intact. Full, normal range of motion. 20:28 Neuro: Orientation: is normal, Motor: is normal, moves all fours. Vital Signs: 17:01 BP 120 / 79; Pulse 100; Resp 20; Temp 98; Pulse Ox 98% ; Weight 81.65 kg; Height 5 ft. sv 4 in. (162.56 cm); Pain 0/10; 18:50 BP 109 / 74; Pulse 88; Resp 18; Pulse Ox 97% on R/A; Pain 0/10; em 17:01 Body Mass Index 30.90 (81.65 kg, 162.56 cm) sv MDM: 18:32 Patient medically screened. pm1 20:28 Data reviewed: vital signs. Data interpreted: Pulse oximetry: on room air is 97 %. pm1 Interpretation: normal. Counseling: I had a detailed discussion with the patient and/or guardian regarding: the historical points, exam findings, and any diagnostic results supporting the discharge/admit diagnosis, lab results, the need for further work-up and treatment in the hospital. 20:58 Physician consultation: Trudy Thomas MD was contacted at 20:57, regarding admission, pm1 patient's condition, in the emergency department to see patient at 20:58. 04/18 18:37 Order name: Basic Metabolic Panel; Complete Time: 20:20 pm1 04/18 18:37 Order name: CBC with Diff; Complete Time: 20:20 pm1 04/18 18:37 Order name: Creatinine for Radiology; Complete Time: 20:20 pm1 04/18 18:37 Order name: Hepatic Function; Complete Time: 20:20 pm1 04/18 18:37 Order name: Lipase; Complete Time: 20:20 pm1 04/18 18:37 Order name: Urine Microscopic Only; Complete Time: 20:20 pm1 04/18 18:37 Order name: IV Saline Lock; Complete Time: 19:10 pm04/18 18:37 Order name: Labs collected and sent; Complete Time: 19:10 pm04/18 18:37 Order name: Urine Dipstick-Ancillary (obtain specimen); Complete Time: 19:09 pm1 04/18 19:29 Order name: Urine Dipstick--Ancillary (enter results); Complete Time: 20:20 2 04/18 20:09 Order name: Urine Culture EDIN 04/18 18:37 Order name: Urine Test (obtain specimen); Complete Time: 19:09 pm1 Administered Medications: 19:05 Drug: NS 0.9% 1000 ml Route: IV; Rate: 1000 ml; Site: right antecubital; ak1 20:22 Follow up: IV Status: Completed infusion ak1 19:05 Drug: Zofran 4 mg Route: IVP; Site: right antecubital; ak1 20:21 Follow up: Response: No adverse reaction ak1 20:31 Drug: NS 0.9% 1000 ml Route: IV; Rate: 1 bolus; Site: right antecubital; ak1 21:24 Follow up: IV Status: Completed infusion ak1 Disposition: 04/18/18 20:33 Hospitalization ordered by Trudy Thomas for Inpatient Admission. Preliminary diagnosis are Acute kidney failure, Vomiting, Diarrhea, unspecified, Dehydration. - Bed requested for Telemetry/MedSurg (Inpatient). - Status is Inpatient Admission. ak1 - Condition is Stable. - Problem is new. - Symptoms have improved. UTI on Admission? No Addendum: 04/21/2018 06:52 Co-signature as Attending Physician, Ronan Conklni MD I agree with the assessment and k dr plan of care. Signatures: Dispatcher [employer] EDIN Jena Levine RN RN kl Verde, Stephanie, RN RN sv Rittger, Kevin, MD MD kdr Munoz, Edgar, CRIME SCENE INVESTIGATOR CRIME SCENE INVESTIGATOR Eboni Nguyen RN RN ak1 Jean-Paul Interiano, LUISA SALES AND SERVICE ADVISOR pm1 Corrections: (The following items were deleted from the chart) 04/18 22:18 20:33 Hospitalization Ordered by Trudy Thomas MD for Inpatient Admission. Preliminary kl diagnosis is Acute kidney failureVomiting; Diarrhea, unspecified; Dehydration. Bed requested for Telemetry/MedSurg (Inpatient). Status is Inpatient Admission. Condition is Stable. Problem is new. Symptoms have improved. UTI on Admission? No. pm1 23:19 22:18 04/18/2018 20:33 Hospitalization Ordered by Trudy Thomas MD for Inpatient ak1 Admission. Preliminary diagnosis is Acute kidney failureVomiting; Diarrhea, unspecified; Dehydration. Bed requested for Telemetry/MedSurg (Inpatient). Status is Inpatient Admission. Condition is Stable. Problem is new. Symptoms have improved. UTI on Admission? No. kl
--- NOTE | 2018-04-18 21:20 | P.HP ---
Certification for Inpatient Patient admitted to: Observation With expected LOS: <2 Midnights Practitioner: I am a practitioner with admitting privileges, knowledge of patient current condition, hospital course, and medical plan of care. Services: Services provided to patient in accordance with Admission requirements found in Title 42 Section 412.3 of the Code of Federal Regulations Patient History Date of Service: 04/18/18 Reason for admission: acute gastroenteritis History of Present Illness: Ms Gar is a 47 years old woman with history of DM II, HTN, PE, who start with nausea, vomiting and diarrhea 2 days ago. Since so, she has not been able to keep down her food, and partially fluids. She denied fever or chills. Mild diffuse abdominal pain. No blood or mucus seen in stools. She came to day because was feeling dizzy and lethargic, and her symptoms have not improved. Her daughter and grandson had the same symptoms a few days ago. In ED the patient was afebrile, lab work shows normal WBC count. Creatinine 3.75 ( previously in 03/01 was 1.64) Allergies piperacillin [From Zosyn] Adverse Reaction (Severe, Verified 11/10/15 23:45) Nausea/Vomiting tazobactam [From Zosyn] Adverse Reaction (Severe, Verified 11/10/15 23:45) Nausea/Vomiting Home medications list reviewed: Yes Home Medications: Gabapentin [Neurontin*] 100 mg PO TID 11/09/15 Insulin Glargine,Hum.rec.anlog [T[place]ovalo Solostar] 80 unit SQ BEDTIME 11/09/15 Lisinopril 10 mg PO DAILY 11/09/15 Apixaban [Eliquis] 5 mg PO BID #60 tablet 09/25/17 - Past Medical/Surgical History Diabetic: Yes -: Diabetes type 2(insulin-dependent) -: Retinopathy -: Blindness -: Neuropathy, peripheral -: HTN Past Surgical History: Reviewed- Non-Contributory - Family History Father -: Diabetes - Social History Smoking Status: Never smoker Alcohol use: No CD- Drugs: No Caffeine use: No Place of Residence: Home Review of Systems 10-point ROS is otherwise unremarkable Physical Examination - Physical Exam General: Alert, In no apparent distress HEENT: Atraumatic, Mucous membr. moist/pink, EOMI, Sclerae nonicteric Neck: Supple, 2+ carotid pulse no bruit, No LAD, Without JVD or thyroid abnormality Respiratory: Clear to auscultation bilaterally, Normal air movement Cardiovascular: Regular rate/rhythm, Normal S1 S2 Gastrointestinal: Normal bowel sounds, Tenderness (mild diffuse tenderness to palpation.) Musculoskeletal: No tenderness Integumentary: No rashes Neurological: Normal speech, Normal strength at 5/5 x4 extr, Normal tone, Normal affect Lymphatics: No axilla or inguinal lymphadenopathy - Studies Laboratory Data (last 24 hrs) 04/18/18 19:05: Creatinine 3.73 H 04/18/18 19:05: WBC 8.9, Hgb 12.0, Hct 36.6, Plt Count 250 04/18/18 19:05: Sodium 139, Potassium 4.1, BUN 39 H, Creatinine 3.75 H, Glucose 198 H, Total Bilirubin 0.3, AST 21, ALT 25, Alkaline Phosphatase 109, Lipase 129 Assessment and Plan - Problems (Diagnosis) (1) Acute gastroenteritis Current Visit: Yes Status: Acute (2) Acute kidney injury superimposed on chronic kidney disease Onset Date: 09/23/17 Current Visit: No Status: Acute (3) Diabetes mellitus Onset Date: 09/23/17 Current Visit: No Status: Chronic Qualifiers: Diabetes mellitus type: type 2 Diabetes mellitus exterminator insulin use: with exterminator use Diabetes mellitus complication status: with kidney complications Diabetes mellitus complication detail: with chronic kidney disease Chronic kidney disease stage: stage 3 (moderate) Qualified Code(s): E11.22 - Type 2 diabetes mellitus with diabetic chronic kidney disease; N18.3 - Chronic kidney disease, stage 3 (moderate); Z79.4 - computer terminal operator (current) use of insulin (4) Hypertension Onset Date: 09/23/17 Current Visit: No Status: Chronic Qualifiers: Hypertension type: essential hypertension Qualified Code(s): I10 - Essential (primary) hypertension - Plan Will admit the patient under observation due to acute gastroenteritis, acute on CKD. Will continue aggressive fluid replacement and symptoms control. Repeat labs in AM, if tolerate food and renal function improves, she may go home tomorrow in the morning. - Advance Directives Does patient have a Living Will: No Does patient have a Durable POA for Healthcare: No - Code Status/Comfort Care Code Status Assessed: Yes Code Status: Full Code
[2018-04-18] MEDS ORDERED: ONDANSETRON 4 MG/2 ML VIAL IV PRN (22:49)
[2018-04-18] MEDS: NA CHLORIDE 0.9% 1,000 ML IV SCH (23:44)
[2018-04-19 00:27] VITALS: BMI 30.9
[2018-04-19] MEDS: NA CHLORIDE 0.9% 1,000 ML IV SCH ×3 (05:30→22:40)
[2018-04-19 06:23] LABS: Absolute Lymphocytes (CBC) 1.2 K/uL (0.7-4.9); Absolute Monocytes 0.7 K/uL (0.1-1.3); Absolute Neutrophil 4.1 K/uL (1.8-8.0); Basophils % 0.3 % (0-1.3); Eosinophils % 3.6 % (0-4.4); Hematocrit 30.9 % (36.0-45.0); Lymphocytes % 18.8 % (15.3-44.8); MPV 8.9 fL (7.6-11.3); Monocytes % 11.2 % (3.3-12.3); RBC Red Blood Cell Count 3.77 M/uL (3.86-4.86)
[2018-04-19 06:45] LABS: Potassium 4.2 mmol/L (3.5-5.1)
[2018-04-19] MEDS: INSULIN -REGULAR HUMAN 50 UNIT/0.5 ML ML SQ SCH ×4 (07:30→20:56)
[2018-04-19] MEDS ORDERED: MAGNESIUM SULFATE 1 gm IVPB 1 GM/100 ML BAG IV ONE (09:00)
[2018-04-19 13:04] VITALS: O2SAT 98
--- NOTE | 2018-04-19 13:09 | P.PN ---
Subjective Date of Service: 04/19/18 Chief Complaint: acute gastroenteritis Patient seen and examined at bedside with RN. Chart reviewed. Overall no complaints to offer overnight. Has been doing well. No episodes of diarrhea or nausea vomiting noted this morning Review of Systems 10-point ROS is otherwise unremarkable Physical Examination - Vital Signs Temperature: 97.1 F Blood Pressure: 126/77 Pulse: 81 Respirations: 20 Pulse Ox (%): 98 - Physical Exam General: Alert, In no apparent distress HEENT: Atraumatic, PERRLA, EOMI Neck: Supple, JVD not distended Respiratory: Clear to auscultation bilaterally, Normal air movement Cardiovascular: Regular rate/rhythm, Normal S1 S2 Gastrointestinal: Normal bowel sounds, No tenderness Musculoskeletal: No tenderness Integumentary: No rashes Neurological: Normal speech, Normal tone, Normal affect Lymphatics: No axilla or inguinal lymphadenopathy - Studies Laboratory Data (last 24 hrs) 04/18/18 19:05: Creatinine 3.73 H 04/18/18 19:05: WBC 8.9, Hgb 12.0, Hct 36.6, Plt Count 250 04/18/18 19:05: Sodium 139, Potassium 4.1, BUN 39 H, Creatinine 3.75 H, Glucose 198 H, Total Bilirubin 0.3, AST 21, ALT 25, Alkaline Phosphatase 109, Lipase 129 Medications List Reviewed: Yes Assessment And Plan - Current Problems (Diagnosis) (1) Acute gastroenteritis Current Visit: Yes Status: Acute Plan: Acute viral gastroenteritis. Improving today -will continue with IV fluids at this time -will advance to a full liquid diet and advance as tolerated -improvement in diarrhea nausea vomiting at this time (2) Acute kidney injury superimposed on chronic kidney disease Onset Date: 09/23/17 Current Visit: No Status: Acute Plan: Acute kidney injury on chronic kidney disease. Patient's baseline creatinine is around 1.6 -BUN and creatinine improving today on IV fluids. Will continue that here in the hospital. -Most likely secondary to dehydration (3) Diabetes mellitus Onset Date: 09/23/17 Current Visit: No Status: Chronic Qualifiers: Diabetes mellitus type: type 2 Diabetes mellitus scanning supervisor insulin use: with correction use Diabetes mellitus complication status: with kidney complications Diabetes mellitus complication detail: with chronic kidney disease Chronic kidney disease stage: stage 3 (moderate) Qualified Code(s): E11.22 - Type 2 diabetes mellitus with diabetic chronic kidney disease; N18.3 - Chronic kidney disease, stage 3 (moderate); Z79.4 - senior care (current) use of insulin (4) Hypertension Onset Date: 09/23/17 Current Visit: No Status: Chronic Qualifiers: Hypertension type: essential hypertension Qualified Code(s): I10 - Essential (primary) hypertension - Plan Pending clinical improvement at this time Discharge Plan: Home Plan to discharge in: 48 Hours - Code Status/Comfort Care Code Status Assessed: Yes Critical Care: No
[2018-04-19] MEDS: APIXABAN 5 MG TABLET PO SCH (20:44)
[2018-04-20] MEDS: NA CHLORIDE 0.9% 1,000 ML IV SCH (05:34)
[2018-04-20 06:43] LABS: Potassium 4.4 mmol/L (3.5-5.1)
[2018-04-20] MEDS: INSULIN -REGULAR HUMAN 50 UNIT/0.5 ML ML SQ SCH (07:30)
[2018-04-20] MEDS: APIXABAN 5 MG TABLET PO SCH (08:18)
[2018-04-20 10:30] VITALS: BP 147/73; TEMP 97.5
--- NOTE | 2018-04-20 12:52 | P.DS ---
Admission Date: 04/18/18 Discharge Date: 04/20/18 Disposition: ROUTINE DISCHARGE Discharge Condition: GOOD Reason for Admission: acute gastroenteritis - Problems (1) Acute gastroenteritis Status: Acute (2) Acute kidney injury superimposed on chronic kidney disease Onset Date: 09/23/17 Status: Acute (3) Diabetes mellitus Onset Date: 09/23/17 Status: Chronic Qualifiers: Diabetes mellitus type: type 2 Diabetes mellitus mcc insulin use: with mcc use Diabetes mellitus complication status: with kidney complications Diabetes mellitus complication detail: with chronic kidney disease Chronic kidney disease stage: stage 3 (moderate) Qualified Code(s): E11.22 - Type 2 diabetes mellitus with diabetic chronic kidney disease; N18.3 - Chronic kidney disease, stage 3 (moderate); 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 Since so, she has not been able to keep down her food, and partially fluids. She denied fever or chills. Mild diffuse abdominal pain. No blood or mucus seen in stools. She came to day because was feeling dizzy and lethargic, and her symptoms have not improved. Her daughter and grandson had the same symptoms a few days ago. In ED the patient was afebrile, lab work shows normal WBC count. Creatinine 3.75 ( previously in 03/01 was 1.64) Allergies Hospital Course: Overall during the hospital stay patient remained stable Patient was initially admitted to the hospital for acute viral gastroenteritis and acute kidney injury secondary to dehydration. Patient was started on IV fluids while here in the hospital and was kept NPO initially because of nausea and vomiting. 1 nausea and vomiting resolved patient's diet was advanced to a clear liquid and then was advanced to full liquid and then to GI soft. Patient tolerated the diet well. Patient initially had creatinine of 3.6 which improved to creatinine of 1.39 after IV fluids. Patient at that time was discharged home under stable condition was asked to follow up with primary care provider along with this done which care with nephrology outpatient. Patient demonstrated understanding and thus was discharged home under stable condition. Vital Signs/Physical Exam: Temp Pulse Resp BP Pulse Ox 97.5 F 71 20 147/73 H 96 04/20/18 08:00 04/20/18 08:00 04/20/18 08:00 04/20/18 08:00 04/20/18 08:00 General: Alert, In no apparent distress HEENT: Atraumatic, PERRLA, EOMI Neck: Supple, JVD not distended Respiratory: Clear to auscultation bilaterally, Normal air movement Cardiovascular: Regular rate/rhythm, Normal S1 S2 Gastrointestinal: Normal bowel sounds, No tenderness Musculoskeletal: No tenderness Integumentary: No rashes Neurological: Normal speech, Normal tone, Normal affect Lymphatics: No axilla or inguinal lymphadenopathy Laboratory Data at Discharge: WBC 6.2 K/uL (4.3-10.9) D 04/19/18 06:07 Hgb 10.3 g/dL (12.0-15.0) L 04/19/18 06:07 Hct 30.9 % (36.0-45.0) L D 04/19/18 06:07 Plt Count 201 K/uL (152-406) 04/19/18 06:07 Sodium 144 mmol/L (136-145) 04/20/18 06:14 Potassium 4.4 mmol/L (3.5-5.1) 04/20/18 06:14 BUN 15 mg/dL (7-18) 04/20/18 06:14 Creatinine 1.39 mg/dL (0.55-1.3) H 04/20/18 06:14 Glucose 103 mg/dL (74-106) 04/20/18 06:14 Magnesium 2.0 mg/dL (1.8-2.4) 04/20/18 06:14 Total Bilirubin 0.3 mg/dL (0.2-1.0) 04/18/18 19:05 AST 21 U/L (15-37) 04/18/18 19:05 ALT 25 U/L (12-78) 04/18/18 19:05 Alkaline Phosphatase 109 U/L (45-117) 04/18/18 19:05 Lipase 129 U/L (73-393) 04/18/18 19:05 Home Medications: Gabapentin [Neurontin*] 100 mg PO TID 11/09/15 Insulin Glargine,Hum.rec.anlog [Brunoranjeetdilip Fuentesmarcelino] 60 unit SQ BEDTIME 11/09/15 Lisinopril 5 mg PO BID 11/09/15 Apixaban [Eliquis] 5 mg PO BID #60 tablet 09/25/17 Patient Discharge Instructions: Please f.u with PCP in 1 to 2 days post discharge. No new medication. Please resume taking your lisinopril after 5 days of discharge. Increase intake of Fluids Diet: Regular Activity: Ad maximo
== END 2018-04-20 11:17 | disposition home or self-care (01) ==
LOC: ER 16:56 → ERHOLD 21:19 → 2ND 22:43
PROVIDERS: ADMIT Internal Medicine; ATTEND Internal Medicine
DX: A08.4 Viral intestinal infection, unspecified (principal); I12.9 Hypertensive chronic kidney disease with stage 1 through stage 4 chronic kidney disease, or unspecified chronic kidney disease; E11.22 Type 2 diabetes mellitus with diabetic chronic kidney disease; N18.3 Chronic kidney disease, stage 3 (moderate); N17.9 Acute kidney failure, unspecified; Z79.4 Long term (current) use of insulin
CPT/HCPCS: 96361; 87088; 85025 ×2; 80048 ×3; 36415 ×2; 83735 ×2; 82962 ×5; 80076; 83690; 96374; 99285; J3475; J7030 ×8; J2405; G0378 ×2; 81003; 81015; 87086

== ENCOUNTER 2018-12-31 09:56 | Inpatient (IN) | payer OTHER ==
--- OUTSIDE RECORDS SUMMARY | 2018-12-31 10:00 | XMS REPORT ---
:1970 Author Organization [employer] Care Team Providers Name Role Phone Grant, Na Provider Role Unavailable Allergies No Known Allergies Problems Problem Type Condition Code Onset Dates Condition Status Problem prison current use of insulin Z79.4 [...]
--- OUTSIDE RECORDS SUMMARY | 2018-12-31 10:00 | XMS REPORT ---
:1970 Author Organization [employer] Care Team Providers Name Role Phone Grant, Na Provider Role Unavailable Allergies, Adverse Reactions, Alerts Substance Reaction Event Type N.K.D.A. Info Not Available Non Drug Allergy Problems Problem Type Condition Code Onset Dates Condition Status Problem assisted current use of insulin Z79.4 Active Problem [...] End Status Dosage System Date Date Paxil [facility] 12857469700 20 MG Orally Active 1 tablet in Once a day the morning Eliquis 5 mg ND 68806745066 5 mg by mouth Oct 01Mar Active one twice daily 2017 Angie FuentesMickie ND 47459134520 300 UNIT/ML Active 80 units Subcutaneous once a day Lisinopril ND 36686430450 20 MG Orally Active 1 tablet Once a day Glimepiride ND 16882274679 2 MG Orally Inactive 1 tablet with Once a day breakfast or the first main meal of the day Pravastatin [facility] 38099012837 20 MG Orally Active 1 tablet Sodium Once a day Gabapentin [facility] 30104826430 300 MG Orally Active 2 capsule Once a day before bedtime Clotrimazole [facility] 12663918894 1 % Externally Active 1 application Twice a day to affected area Ferralet 90 [facility] 08694795473 90-1 MG Orally Inactive 1 tablet Once a day Lipitor [facility] 73770322875 10 MG Orally Inactive 1 tablet Once a day Results No Known Results Summary Purpose [employer]ClinicalWorks Submission
--- OUTSIDE RECORDS SUMMARY | 2018-12-31 10:01 | XMS REPORT ---
[...] Problem Vitamin D deficiency E55.9 Active Problem rn long term care current use of insulin Z79.4 Active Problem Benign essential HTN I10 Active Problem Depression with anxiety F41.8 Active Problem Neuropathy G62.9 Active Medications No Known Medications Results No Known Results Summary Purpose [employer]Works Submission
--- OUTSIDE RECORDS SUMMARY | 2018-12-31 10:01 | XMS REPORT ---
:1970 Author Organization [employer] Care Team Providers Name Role Phone Grant, Na Provider Role Unavailable Allergies No Known Allergies Problems Problem Type Condition Code Onset Dates Condition Status Problem group home current use of insulin Z79.4 Active Problem [...]
--- OUTSIDE RECORDS SUMMARY | 2018-12-31 10:01 | XMS REPORT ---
[...] Problem Vitamin D deficiency E55.9 Active Problem [facility] current use of insulin Z79.4 Active Problem Benign essential HTN I10 Active Problem Depression with anxiety F41.8 Active Problem Neuropathy G62.9 Active Medications Medication Code Code Instructions Start End Status Dosage System Date Date FreeStyle NDC 14430167867 - [place] every Mar 05, Active as directed Suleiman Sensor 2018 System FreeStyle NDC 90930739928 - [place] dailyMar 05, Active as directed Suleiman [place] 2018 Results No Known Results Summary Purpose eClinicalWorks Submission
--- OUTSIDE RECORDS SUMMARY | 2018-12-31 10:01 | XMS REPORT ---
[...] System Date Date Eliquis 5 mg ND 21567783016 5 mg by mouth Active one twice daily Citalopram ND 08251262559 10 MG Orally Feb 25, Active 1 tablet Hydrobromide Once a day 2018 Paxil ND 83821930719 20 MG Orally Inactive 1 tablet in Once a day the morning Toranjeeto GinaoStar [facility] 01045670803 300 UNIT/ML Active 60 units Subcutaneous once a day Gabapentin [facility] 65407556896 300 MG Orally Active 2 capsule Once a day before bedtime Ferralet 90 [facility] 16831611184 90-1 MG Orally Inactive 1 tablet Once a day Lisinopril [facility] 17154556679 20 MG Orally Active 1 tablet Once a day Pravastatin [facility] 32235438978 20 MG Orally Inactive 1 tablet Sodium Once a day Clotrimazole [facility] 72246210712 1 % Externally Active 1 application Twice a day to affected area Results No Known Results Summary Purpose eClinicalWorks Submission
--- OUTSIDE RECORDS SUMMARY | 2018-12-31 10:01 | XMS REPORT ---
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
--- OUTSIDE RECORDS SUMMARY | 2018-12-31 10:01 | XMS REPORT ---
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.4 Active Problem Benign essential HTN I10 Active Assessment Moderate episode of recurrent F33.1 Active major depressive disorder Problem Depression with anxiety F41.8 Active Problem Neuropathy G62.9 Active Medications Medication Code Code Instructions Start End Status Dosage System Date Date Citalopram ND 37875038859 10 MG Orally Feb 25, Active 1 tablet Hydrobromide Once a day 2018 Angie FuentesMickie ND 85960538359 300 UNIT/ML Active 60 units Subcutaneous once a day Eliquis 5 mg ND 74669986612 5 mg by mouth Active one twice daily Lisinopril [facility] 99333253896 20 MG Orally Active 1 tablet Once a day Results No Known Results Summary Purpose eClinicalWorks Submission
--- OUTSIDE RECORDS SUMMARY | 2018-12-31 10:02 | XMS REPORT ---
:1970 Author Organization [employer] Care Team Providers Name Role Phone Rudy, Althea Provider Role Unavailable Allergies, Adverse Reactions, Alerts [...] Problem Vitamin D deficiency E55.9 Active Problem [facility] current use of insulin Z79.4 Active Problem Depression with anxiety F41.8 Active Medications Medication Code Code Instructions Start End Status Dosage System Date Date Lisinopril [facility] 48727505691 20 MG Orally Active 1 tablet Once a day Citalopram [facility] 79122520939 10 MG Orally Active 1 tablet Hydrobromide Once a day Pravastatin [facility] 79324925452 20 MG Orally Inactive 1 tablet Sodium Once a day Gabapentin [facility] 70363596674 300 MG Orally Active 2 capsule Once a day before bedtime Paxil [facility] 63102632508 20 MG Orally Inactive 1 tablet in Once a day the morning FreeStyle Suleiman [facility] 57460183362 - [place] dailyMar 05, Active as directed [place] 2018 Eliquis 5 mg [facility] 47382742365 5 mg by mouth Active one twice daily Ferralet 90 [facility] 95936174827 90-1 MG Orally Inactive 1 tablet Once a day Clotrimazole [facility] 52440531089 1 % Externally Active 1 application Twice a day to affected area Toujeo SoloStar [facility] 93203016712 300 UNIT/ML Active 70 units Subcutaneous once a day FreeStyle Suleiman [facility] 09328246973 - [place] every Mar 05, Active as directed Sensor System 2018 Results No Known Results Summary Purpose eClinicalWorks Submission
--- NOTE | 2018-12-31 10:37 | RAD REPORT ---
EXAM DESCRIPTION: CT - Head Brain Wo Cont - 12/31/2018 10:17 am CLINICAL HISTORY: Headache COMPARISON: 2018 TECHNIQUE: Computed axial tomography of the head was obtained. IV contrast was not requested. All CT scans are performed using dose optimization technique as appropriate and may include automated exposure control or mA/KV adjustment according to patient size. FINDINGS: An intracranial bleed is not seen . The ventricles are normal in caliber. No extra-axial fluid collection is noted. Fluid within the sinuses/ mastoids is not seen. IMPRESSION: No acute intracranial abnormality is seen. If patient's symptoms persist MRI of the bra in would be recommended.
--- NOTE | 2018-12-31 10:48 | RAD REPORT ---
EXAM DESCRIPTION: Angelica Single View12/31/2018 10:28 am CLINICAL HISTORY: Chest pain COMPARISON: 2018 FINDINGS: The lungs appear clear of acute infiltrate. The heart is normal size IMPRESSION: No acute abnormalities displayed
[2018-12-31 10:52] LABS: Absolute Lymphocytes (CBC) 0.6 K/uL (0.7-4.9); Basophils % 0.6 % (0-1.3); Hematocrit 31.2 % (36.0-45.0); Lymphocytes % 7.9 % (15.3-44.8); MPV 9.6 fL (7.6-11.3); Protime INR 1.12
[2018-12-31] MEDS ORDERED: DIPHENHYDRAMINE 50 MG/ML VIAL ONE (10:57)
[2018-12-31] MEDS ORDERED: METOCLOPRAMIDE 10 MG/2mL INJ ONE (10:57)
[2018-12-31] MEDS ORDERED: NA CHLORIDE 0.9% 100 ML IV ONE (10:58)
[2018-12-31 11:04] LABS: ALT/SGPT 22 U/L (12-78); AST/SGOT 18 U/L (15-37); Albumin 3.4 g/dL (3.4-5.0); Alkaline Phosphatase 99 U/L (45-117); BUN Blood Urea Nitrogen 26 mg/dL (7-18); Bicarbonate 24 mmol/L (21-32); Bilirubin Direct 0.1 mg/dL (0-0.2); Bilirubin Total 0.5 mg/dL (0.2-1.0); Glucose Level 226 mg/dL (74-106); Magnesium 1.9 mg/dL (1.8-2.4); NT PRO-BNP 239 pg/mL (<125); Potassium 4.5 mmol/L (3.5-5.1); Protein, Total 7.8 g/dL (6.4-8.2); Sodium Level 138 mmol/L (136-145); Troponin (Emerg Dept Use Only) < 0.02 ng/mL (0.0-0.045)
--- NOTE | 2018-12-31 13:01 | RAD REPORT ---
EXAM DESCRIPTION: MRI - Brain Wo Cont - 12/31/2018 12:50 pm CLINICAL HISTORY: Headache COMPARISON: December 31, [address] TECHNIQUE: Axial, sagittal, and coronal magnetic images of the brain were obtained. Contrast was not requested FINDINGS: No significant abnormal signal is present within the brain. Diffusion-weighted/ADC mapping does not reveal evidence of acute infarction. The ventricles are normal caliber. An extra-axial fluid collection is not present The sinuses and mastoids are clear. IMPRESSION: No acute abnormality displayed
[2018-12-31] MEDS ORDERED: ONDANSETRON 4 MG/2 ML VIAL ONE (14:10)
[2018-12-31 14:37] LABS: Barbiturates NEGATIVE (NEGATIVE); Benzodiazepines NEGATIVE (NEGATIVE); Cocaine NEGATIVE (NEGATIVE); METHAMPHETAM NEGATIVE (NEGATIVE); Methadone NEGATIVE (NEGATIVE); Opiates NEGATIVE (NEGATIVE); Phencyclidine NEGATIVE (NEGATIVE); THC Cannibis NEGATIVE (NEGATIVE)
--- NOTE | 2018-12-31 15:03 | ER ---
Nurse's Notes [facility] Name: Tyra Stewart Age: 48 yrs Sex: Female : 1970 Arrival Date: 12/31/2018 Time: 09:58 Bed 2 Private MD: Diagnosis: Headache;Ataxic gait Presentation: 12/31 10:05 Presenting complaint: Patient states: Pt flopped into bed from wheelchair and reports jl7 she got in an argument with daughter last night, head started hurting "It feels like it's going to explode." ERP notified and at bedside. Reports non radiating substernal chest pressure, weakness, nausea, and dizziness all began last night around 2230. Transition of care: patient was not received from another setting of care. An acute neurological deficit is present. The charge nurse has been notified. Pre-hospital glucose is not applicable to this patient. Onset of symptoms was December 30, 2018 at 22:30. Risk Assessment: Do you want to hurt yourself or someone else? Patient reports no desire to harm self or others. Initial Sepsis Screen: Does the patient meet any 2 criteria? No. Patient's initial sepsis screen is negative. Does the patient have a suspected source of infection? No. Patient's initial sepsis screen is negative. Care prior to arrival: None. 10:05 Method Of Arrival: Wheelchair jl7 10:05 Acuity: TASHI 2 jl7 Triage Assessment: 10:05 The onset of the patients symptoms was December 30, 2018 at 23:30. General: Appears in jl7 no apparent distress. uncomfortable, Behavior is cooperative, anxious, crying. Pain: Complains of pain in TILLMAN Pain does not radiate. Pain currently is 10 out of 10 on a pain scale. Quality of pain is described as pressure, throbbing, Pain began about 11 hours ago Is continuous. Neuro: Level of Consciousness is awake, alert, obeys commands, Oriented to person, place, time, situation, Weakness Gait is unsteady, Speech is normal, Facial droop on right, Pupils are irregular, Reports dizziness, headache weakness. Cardiovascular: Heart tones present Patient's skin is warm and dry. Rhythm is sinus tachycardia Chest pain is located in substernal area. Respiratory: Airway is patent Respiratory effort is even, unlabored, Respiratory pattern is regular, symmetrical, Breath sounds are clear bilaterally. GI: Reports nausea. Derm: Skin is pink, warm \\T\\ dry. 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 LMP N/A - Post-menopause jl7 Stroke Activation: Symptom onset > 6 hours Physician: Stroke Attending; Name: ; Notified At: ; Arrived At: Physician: Chief Stroke Resident; Name: ; Notified At: ; Arrived At: Physician: Stroke Resident; Name: ; Notified At: ; Arrived At: Physician: ED Attending; Name: ; Notified At: ; Arrived At: Physician: ED Resident; Name: ; Notified At: ; Arrived At: Historical: - Allergies: 10:37 tazobactam; jl7 10:37 piperacillin; jl7 - Home Meds: 10:37 Toujeo SoloStar subcutaneous subcutaneous [Active]; lisinopril Oral [Active]; jl7 gabapentin oral oral [Active]; Insulin: Regular Sub-Q [Active]; - PMHx: 10:37 Diabetes - IDDM; Hypertension; kidney failure; PE in right lung; jl7 - Immunization history:: Adult Immunizations unknown. - Social history:: Smoking status: Patient/guardian denies using tobacco. - Ebola Screening: : No symptoms or risks identified at this time. Screenin:51 Abuse screen: Denies threats or abuse. Denies injuries from another. Nutritional jl7 screening: No deficits noted. Tuberculosis screening: No symptoms or risk factors identified. Fall Risk IV access (20 points). Total Sun Fall Scale indicates No Risk (0-24 pts). Assessment: 10:05 VAN Scoring: Arm Drift: Patients demonstrates NO arm weakness. Patient is VAN Negative. jl7 T-PA (Activase) Screening: Contraindications: Patient reports onset of signs and symptoms of stroke greater than 6 hours ago:. 10:05 The patient has not been NPO before screening. The patient is alert, and able to follow jl7 commands. The patient does not exhibit slurred or garbled speech. The patient is not exhibiting difficulty speaking. The patient does not exhibit difficulty understanding words. The patient is able to swallow own secretions with no drooling or need for suction. Patient tolerated one teaspoon of water. No drooling, immediate coughing, gurgling, or clearing of the throat was noted. The patient tolerated 90mL of water. No drooling, immediate coughing, gurgling, or clearing of the throat was noted. The patient passed the bedside swallow screening. Oral medications may be given as ordered. Contact Physician for further diet orders. Provider notified of bedside swallow screening results: Vinod HAM. 10:05 General: See triage assessment. jl7 11:00 Reassessment: Patient appears in no apparent distress at this time. Patient and/or jl7 family updated on plan of care and expected duration. Pain level reassessed. Patient is alert, oriented x 3, equal unlabored respirations, skin warm/dry/pink. Pt reports TILLMAN is better, rated 2/10 at this time. 12:23 Reassessment: Pt. went to MRI. rb1 13:30 Reassessment: Attempted to ambulate pt, pt stood up and appeared unsteady, reported jl7 feeling weak and dizzy, ERP notified. 14:00 Reassessment: Pt reports nausea, ERD notified, see [facility] for orders. jl7 15:00 Reassessment: Patient appears in no apparent distress at this time. Patient and/or jl7 family updated on plan of care and expected duration. Pain level reassessed. Patient is alert, oriented x 3, equal unlabored respirations, skin warm/dry/pink. Patient states symptoms have improved. Vital Signs: 10:05 BP 163 / 102; Pulse 117; Resp 26 S; Temp 97.9(TE); Pulse Ox 97% on R/A; Pain 10/10; jl7 10:51 BP 136 / 69; Pulse 118; Resp 16; Pulse Ox 100% ; jl7 11:00 Pain 2/10; jl7 11:00 Pain 2/10; jl7 11:42 BP 142 / 88; Pulse 105; Resp 16 S; Pulse Ox 97% on R/A; jl7 12:15 BP 145 / 82; Pulse 105; Resp 16 S; Pulse Ox 97% on R/A; jl7 13:08 BP 153 / 92; Pulse 103; Resp 16 S; Pulse Ox 97% on R/A; jl7 13:58 BP 139 / 81; Pulse 105; Resp 18; Pulse Ox 98% on R/A; rb1 14:16 BP 143 / 83; Pulse 105; Resp 19 S; Pulse Ox 98% on R/A; Pain 0/10; jl7 NIH Stroke Scale Scores: 10:05 NIHSS Score: 8 jl7 ED Course: 09:58 Patient arrived in ED. as 10:05 Arm band placed on right wrist. jl7 10:05 Patient has correct armband on for positive identification. Placed in gown. Bed in low jl7 position. Call light in reach. Side rails up X2. statement request clerk on. Pulse ox on. NIBP on. Warm blanket given. 10:11 Vinod Servin PA is PHCP. jr8 10:11 Kayley Lance MD is Attending Physician. jr8 10:18 CT Head Brain wo Cont In Process Unspecified. EDMS 10:19 Matt White, ROLAND is Primary Nurse. jl7 10:25 XRAY Chest (1 view) In Process Unspecified. EDMS 10:30 Triage completed. jl7 10:34 Initial lab(s) drawn, by ar, sent to lab. Inserted saline lock: 20 gauge in right em1 forearm, using aseptic technique. Blood collected. 10:39 EKG done, by costume technician. reviewed by Vinod HAM. at1 12:07 Awaiting: MRI. jl7 12:38 MRI - Brain Wo Cont In Process Unspecified. EDMS 13:50 Urine collected: straight cath specimen, cloudy. Straight cath inserted, using sterile jl7 technique, 16 Fr. Specimen obtained. 14:50 Admitting physician to see patient. jl7 15:02 Edy Hebert MD is Hospitalizing Provider. jr8 17:32 No provider procedures requiring assistance completed. Patient admitted, IV remains in jl7 place. intact, No redness/swelling at site. Administered Medications: 10:35 Drug: Benadryl 25 mg Route: IVP; Site: right forearm; jl7 11:00 Follow up: Pain 2/10 Adult; Response: No adverse reaction; Pain is decreased jl7 10:36 Drug: Reglan 10 mg Route: IVP; Site: right forearm; jl7 11:00 Follow up: Pain 2/10 Adult; Response: No adverse reaction; Pain is decreased jl7 14:05 Drug: Zofran 4 mg Route: IVP; Site: right forearm; jl7 14:30 Follow up: Response: No adverse reaction; Nausea is decreased jl7 Point of Care Testing: Blood Glucose: 10:20 Blood Glucose: 225 mg/dL; jl7 Ranges: Outcome: 15:03 Decision to Hospitalize by Provider. katt 17:32 Admitted to Tele accompanied by tech, family with patient, via stretcher, room 225, jl7 with chart, Report called to ROLAND Hoyt 17:32 Condition: stable 17:32 Discharge instructions given to patient, family, Instructed on the need for admit, Demonstrated understanding of instructions. 18:25 Patient left the ED. jl7 NIH Stroke Scale - NIH Stroke Score Date: 12/31/2018 Time: 10:05 Total Score = 8 1a. Level of Consciousness (LOC) - 0(Alert) 1b. Level of Consciousness (LOC) (Year \\T\\ Age) - 0(Both) 1c. LOC Commands (Open \\T\\ Closes Eyes/[place] [place] [employer] [place]) - 0(Both) 2. Best Gaze (Lateral Gaze Paresis) - 0(Normal) 3. Visual Field Loss - 2(Complete hemianopia) 4. Facial Palsy - 1(Minor Paralysis) 5a. Left Arm: Motor (10-second hold) - 1(Drift) 5b. Right Arm: Motor (10-second hold) - 0(No drift) 6a. Left Leg: Motor (5-second hold - always test supine) - 1(Drift) 6b. Right Leg: Motor (5-second hold - always test supine) - 0(No drift) 7. Limb Ataxia (finger/nose \\T\\ heel/calero - test with eyes open) - 2(Present in two limbs) 8. Sensory Loss (pinprick arms/legs/face) - 1(Mild to moderate loss) 9. Best Language: Aphasia (description/naming/reading) - 0(No aphasia) 10. Dysarthria (speech clarity - read or repeat words) - 0(Normal) 11. Extinction and Inattention (visual/tactile/auditory/spatial/personal) - 0(No abnormality) Initials: jl7 Signatures: Dispatcher [employer] Tamara Flores Eric em1 Vinod Servin PA PA jr8 Angi Rordíguez, geopolitics teacher EKG Tat1 Daisha Arzola, RN RN rb1 Matt White RN RN jl7
--- NOTE | 2018-12-31 15:03 | EDPHYS ---
Physician Documentation [facility] Name: Tyra Stewart Age: 48 yrs Sex: Female : 1970 Arrival Date: 12/31/2018 Time: 09:58 Bed 2 Private MD: ED Physician Kayley Lance HPI: 12/31 12:37 This 48 yrs old Female presents to ER via Wheelchair with complaints of jr8 Headache . 12:40 The patient complains of pain to the diffusely . The patient describes the headache as jr8 pounding. Onset: The symptoms/episode began/occurred acutely, last night. Associated signs and symptoms: Pertinent positives: dizziness. Severity of symptoms: At its worst the pain was moderate, in the emergency department the pain is unchanged. Headache History: Denies prior headaches. The symptoms are alleviated by nothing. the symptoms are aggravated by movement, stress. The patient has not experienced similar symptoms in the past. The patient has not recently seen a physician. 12:58 Patient stated that she was in an argument last night with family member. No physical jr8 altercation happened. Stated that she had sudden onset headache last night while arguing. Has not had any relief since then and is now having trouble walking . ANCHORMAN: 10:05 LMP N/A - Post-menopause jl Historical: - Allergies: 10:37 tazobactam; jl7 10:37 piperacillin; jl7 - Home Meds: 10:37 Toujeo SoloStar subcutaneous subcutaneous [Active]; lisinopril Oral [Active]; jl7 gabapentin oral oral [Active]; Insulin: Regular Sub-Q [Active]; - PMHx: 10:37 Diabetes - IDDM; Hypertension; kidney failure; PE in right lung; jl7 - Immunization history:: Adult Immunizations unknown. - Social history:: Smoking status: Patient/guardian denies using tobacco. - Ebola Screening: : No symptoms or risks identified at this time. ROS: 12:58 Eyes: Negative for injury, pain, redness, and discharge, ENT: Negative for injury, jr8 pain, and discharge, Neck: Negative for injury, pain, and swelling, Cardiovascular: Negative for chest pain, palpitations, and edema, Respiratory: Negative for shortness of breath, cough, wheezing, and pleuritic chest pain, Abdomen/GI: Negative for abdominal pain, nausea, vomiting, diarrhea, and constipation, Back: Negative for injury and pain, MS/Extremity: Negative for injury and deformity, Skin: Negative for injury, rash, and discoloration. 12:58 Neuro: Positive for gait disturbance, headache. Exam: 15:03 Eyes: Pupils equal round and reactive to light, extra-ocular motions intact. Lids and jr8 lashes normal. Conjunctiva and sclera are non-icteric and not injected. Cornea within normal limits. Periorbital areas with no swelling, redness, or edema. ENT: Nares patent. No nasal discharge, no septal abnormalities noted. Tympanic membranes are normal and external auditory canals are clear. Oropharynx with no redness, swelling, or masses, exudates, or evidence of obstruction, uvula midline. Mucous membranes moist. Neck: Trachea midline, no thyromegaly or masses palpated, and no cervical lymphadenopathy. Supple, full range of motion without nuchal rigidity, or vertebral point tenderness. No Meningismus. Cardiovascular: Regular rate and rhythm with a normal S1 and S2. No gallops, murmurs, or rubs. Normal PMI, no JVD. No pulse deficits. Respiratory: Lungs have equal breath sounds bilaterally, clear to auscultation and percussion. No rales, rhonchi or wheezes noted. No increased work of breathing, no retractions or nasal flaring. Abdomen/GI: Soft, non-tender, with normal bowel sounds. No distension or tympany. No guarding or rebound. No evidence of tenderness throughout. Back: No spinal tenderness. No costovertebral tenderness. Full range of motion. Skin: Warm, dry with normal turgor. Normal color with no rashes, no lesions, and no evidence of cellulitis. MS/ Extremity: Pulses equal, no cyanosis. Neurovascular intact. Full, normal range of motion. 15:03 Neuro: Orientation: to person, place, time \T\ situation. Mentation: is normal, Memory: is normal, immediate memory is intact, recent memory is intact, remote memory is intact, Cranial nerves: CN I not tested, CN II- XII are normal as tested, visual jain are intact. 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 Nystagmus is absent. Speech is clear and appropriate. Tongue strength is normal, Cerebellar function: dysmetria is noted on both sides, Motor: moves all fours, strength is 5/5 in all extremities, Sensation: no obvious gross deficits, Gait: is unsteady, ataxic, seizure activity, is not displayed by the patient, Abnormal movements: there are no abnormal movements. Vital Signs: 10:05 BP 163 / 102; Pulse 117; Resp 26 S; Temp 97.9(TE); Pulse Ox 97% on R/A; Pain 10/10; jl7 10:51 BP 136 / 69; Pulse 118; Resp 16; Pulse Ox 100% ; jl7 11:00 Pain 2/10; jl7 11:00 Pain 2/10; jl7 11:42 BP 142 / 88; Pulse 105; Resp 16 S; Pulse Ox 97% on R/A; jl7 12:15 BP 145 / 82; Pulse 105; Resp 16 S; Pulse Ox 97% on R/A; jl7 13:08 BP 153 / 92; Pulse 103; Resp 16 S; Pulse Ox 97% on R/A; jl7 13:58 BP 139 / 81; Pulse 105; Resp 18; Pulse Ox 98% on R/A; rb1 14:16 BP 143 / 83; Pulse 105; Resp 19 S; Pulse Ox 98% on R/A; Pain 0/10; jl7 NIH Stroke Scale Scores: 10:05 NIHSS Score: 8 jl7 MDM: 10:11 Patient medically screened. [facility] 14:54 Data reviewed: vital signs, nurses notes, lab test result(s), EKG, radiologic studies, [facility] CT scan, MRI. Data interpreted: Pulse oximetry: on room air is 98 %. Interpretation: normal. Counseling: I had a detailed discussion with the patient and/or guardian regarding: the historical points, exam findings, and any diagnostic results supporting the discharge/admit diagnosis, lab results, radiology results, the need for further work-up and treatment in the hospital. ED course: Patients headache improved but still unsteady. Consulted Dr. iverson who accepted for obs under medicine . 12/31 10:11 Order name: Basic Metabolic Panel; Complete Time: 11:13 [facility] 12/31 10:11 Order name: CBC with Diff; Complete Time: : 8 12/31 10:11 Order name: LFT's; Complete Time: 11:13 [facility] 12/31 10:11 Order name: Magnesium; Complete Time: 11:13 [facility] 12/31 10:11 Order name: NT PRO-BNP; Complete Time: 11:13 [facility] 12/31 10:11 Order name: PT-INR; Complete Time: 11:13 [facility] 12/31 10:11 Order name: Troponin (emerg Dept Use Only); Complete Time: 11:13 [facility] 12/31 10:42 Order name: Glucose, Ancillary Testing; Complete Time: 10:47 EDNJ 12/31 13:42 Order name: UDS; Complete Time: 14:39 [facility] 12/31 13:42 Order name: Urine Microscopic Only [facility] 12/31 14:15 Order name: Urine Dipstick--Ancillary (enter results); Complete Time: 15:28 [facility] 12/31 16:22 Order name: Thyroid Stimulating Hormone EDNJ 12/31 16:22 Order name: Urinalysis EDNJ 12/31 16:22 Order name: CBC with Automated Diff EDMS 12/31 10:11 Order name: XRAY Chest (1 view); Complete Time: 10:56 [facility] 12/31 10:11 Order name: CT Head Brain wo Cont; Complete Time: 10:47 [facility] 12/31 11:14 Order name: MRI - Brain Wo Cont; Complete Time: 13:42 [facility] 12/31 16:22 Order name: CBC with Automated Diff EDMS 12/31 16:22 Order name: CKMB Creatine Kinase MB EDMS 12/31 16:23 Order name: CKMB Creatine Kinase MB EDMS 12/31 16:23 Order name: CKMB Creatine Kinase MB EDMS 12/31 16:23 Order name: CKMB Creatine Kinase MB EDMS 12/31 16:23 Order name: Comprehensive Metabolic Panel EDMS 12/31 16:23 Order name: Comprehensive Metabolic Panel EDMS 12/31 16:23 Order name: Lipid Profile EDMS 12/31 16:23 Order name: Lipid Profile EDMS 12/31 16:23 Order name: Troponin I EDMS 12/31 16:23 Order name: Troponin I EDMS 12/31 16:23 Order name: Troponin I EDMS 12/31 16:23 Order name: Troponin I EDMS 12/31 10:11 Order name: EKG; Complete Time: 10:12 [facility] 12/31 10:11 Order name: Cardiac monitoring; Complete Time: 10:41 [facility] 12/31 10:11 Order name: EKG - Nurse/Tech; Complete Time: 10:42 [facility] 12/31 10:11 Order name: IV Saline Lock; Complete Time: 10:33 12/31 10:11 Order name: Labs collected and sent; Complete Time: 10:34 [facility] 12/31 10:11 Order name: O2 Per Protocol; Complete Time: 10:42 [facility] 12/31 10:11 Order name: O2 Sat Monitoring; Complete Time: 10:42 [facility] 12/31 13:42 Order name: Urine Dipstick-Ancillary (obtain specimen); Complete Time: 14:14 [facility] 12/31 15:38 Order name: Physical Therapy Consult EDMS 12/31 16:22 Order name: Consistent Carb (ADA) [address] EDMS Administered Medications: 10:35 Drug: Benadryl 25 mg Route: IVP; Site: right forearm; jl7 11:00 Follow up: Pain 2/10 Adult; Response: No adverse reaction; Pain is decreased jl7 10:36 Drug: Reglan 10 mg Route: IVP; Site: right forearm; jl7 11:00 Follow up: Pain 2/10 Adult; Response: No adverse reaction; Pain is decreased jl7 14:05 Drug: Zofran 4 mg Route: IVP; Site: right forearm; jl7 14:30 Follow up: Response: No adverse reaction; Nausea is decreased jl7 Point of Care Testing: Blood Glucose: 10:20 Blood Glucose: 225 mg/dL; jl7 Ranges: Critical Glucose Levels:Adult <50 mg/dl or >400 mg/dl <40 mg/dl or >180 mg/dl Disposition: 12/31/18 15:03 Hospitalization ordered by Edy Hebert for Observation. Preliminary diagnosis are Headache, Ataxic gait. - Bed requested for Telemetry/MedSurg (observation). - Status is Observation. jl7 - Condition is Stable. - Problem is new. - Symptoms have improved. UTI on Admission? No NIH Stroke Scale - NIH Stroke Score Date: 12/31/2018 Time: 10:05 Total Score = 8 1a. Level of Consciousness (LOC) - 0(Alert) 1b. Level of Consciousness (LOC) (Year \T\ Age) - 0(Both) 1c. LOC Commands (Open \T\ Closes Eyes/Scouring Pads Supervisor) - 0(Both) 2. Best Gaze (Lateral Gaze Paresis) - 0(Normal) 3. Visual Field Loss - 2(Complete hemianopia) 4. Facial Palsy - 1(Minor Paralysis) 5a. Left Arm: Motor (10-second hold) - 1(Drift) 5b. Right Arm: Motor (10-second hold) - 0(No drift) 6a. Left Leg: Motor (5-second hold - always test supine) - 1(Drift) 6b. Right Leg: Motor (5-second hold - always test supine) - 0(No drift) 7. Limb Ataxia (finger/nose \T\ heel/calero - test with eyes open) - 2(Present in two limbs) 8. Sensory Loss (pinprick arms/legs/face) - 1(Mild to moderate loss) 9. Best Language: Aphasia (description/naming/reading) - 0(No aphasia) 10. Dysarthria (speech clarity - read or repeat words) - 0(Normal) 11. Extinction and Inattention (visual/tactile/auditory/spatial/personal) - 0(No abnormality) Initials: jl7 Signatures: Dispatcher [employer] Malu Ragsdale RN RN Vinod Nicholson PA PA jr8 Matt White RN RN jl7 Corrections: (The following items were deleted from the chart) 16:53 15:03 Hospitalization Ordered by Edy Hebert MD for Observation. Preliminary dw diagnosis is Headache; Ataxic gait. Bed requested for Telemetry/MedSurg (observation). Status is Observation. Condition is Stable. Problem is new. Symptoms have improved. UTI on Admission? No. jr8 18:25 16:53 12/31/2018 15:03 Hospitalization Ordered by Edy Hebert MD for jl7 Observation. Preliminary diagnosis is Headache; Ataxic gait. Bed requested for Telemetry/MedSurg (observation). Status is Observation. Condition is Stable. Problem is new. Symptoms have improved. UTI on Admission? No. dw
[2018-12-31 15:26] LABS: Urine Blood TRACE (NEG); Urine Glucose 2+ (NEG); Urine Protein 2+ (NEG); Urine pH 5.5 (5.0-7.0)
--- NOTE | 2018-12-31 15:31 | P.HP ---
Certification for Inpatient Patient admitted to: Observation (a) With expected LOS: <2 Midnights Patient will require the following post-hospital care: None Practitioner: I am a practitioner with admitting privileges, knowledge of patient current condition, hospital course, and medical plan of care. Services: Services provided to patient in accordance with Admission requirements found in Title 42 Section 412.3 of the Code of Federal Regulations Patient History Date of Service: 12/31/18 Reason for admission: Ataxia History of Present Illness: 48-year-old female with past medical history of diabetes mellitus, hypertension, CKD stage 3 came to ER with dizziness and unstable gait. Patient is a poor historian Humphrey most of the history is obtained the chart review and also talking to the family member who is at the bedside. As per the the patient was having some arguments at home . All of a sudden she felt generalized weak and difficulty in ambulating . The patient also had some headache bilateral, associated with some nausea and vomiting. Denies any focal weakness. No fever no chills. Denies any chest pain or shortness of breath. Patient was assessed in the ER and was still continues to have ataxia and was admitted for further management. She had a CT and an MRI done which ruled out any acute stroke. Allergies piperacillin [From Zosyn] Adverse Reaction (Severe, Verified 11/10/15 23:45) Nausea/Vomiting tazobactam [From Zosyn] Adverse Reaction (Severe, Verified 11/10/15 23:45) Nausea/Vomiting Home medications list reviewed: Yes Home Medications: Gabapentin [Neurontin*] 100 mg PO TID 11/09/15 Insulin Glargine,Hum.rec.anlog [Angie Burns] 60 unit SQ BEDTIME 11/09/15 Lisinopril 5 mg PO BID 11/09/15 Apixaban [Eliquis] 5 mg PO BID #60 tablet 09/25/17 - Past Medical/Surgical History Diabetic: Yes Past Medical History: Reviewed- Non-Contributory -: Diabetes type 2(insulin-dependent) -: Retinopathy -: Blindness -: Neuropathy, peripheral -: HTN -: Clot on rt lung-09/28 Past Surgical History: Reviewed- Non-Contributory - Family History Family History: Reviewed- Non-Contributory - Family History Father -: Heart disease, Hypertension, Diabetes Mother -: Diabetes - Social History Smoking Status: Never smoker Alcohol use: No CD- Drugs: No Caffeine use: No Review of Systems 10-point ROS is otherwise unremarkable ENT: Unremarkable Respiratory: Unremarkable Physical Examination - Vital Signs Temperature: 97.8 F Blood Pressure: 146/76 Pulse: 82 - Physical Exam General: Alert, In no apparent distress, Cooperative HEENT: Atraumatic, Normocephalic Neck: Supple, 2+ carotid pulse no bruit Respiratory: Clear to auscultation bilaterally, Normal air movement Cardiovascular: Normal pulses, Regular rate/rhythm Capillary refill: <2 Seconds Gastrointestinal: Soft and benign, W/out hepatosplenomegaly Musculoskeletal: No clubbing, No swelling Integumentary: No rashes Neurological: Normal speech, Normal strength at 5/5 x4 extr, Other (nystagmus +) Lymphatics: No axilla or inguinal lymphadenopathy External genitalia: Deferred Rectal: Deferred - Studies Laboratory Data (last 24 hrs) 12/31/18 10:30: PT 13.2 H, INR 1.12 12/31/18 10:30: WBC 7.5, Hgb 10.6 L, Hct 31.2 L, Plt Count 201 12/31/18 10:30: Sodium 138, Potassium 4.5, BUN 26 H, Creatinine 1.99 H, Glucose 226 H, Magnesium 1.9, Total Bilirubin 0.5, AST 18, ALT 22, Alkaline Phosphatase 99 Assessment and Plan - Problems (Diagnosis) (1) Ataxia Current Visit: Yes Status: Acute Plan: Will monitor closely under telemetry CT, MR brain was negative for any acute stroke Will start on meclizine IV hydration will get a neurology evaluation (2) CKD (chronic kidney disease) stage 3, GFR 30-59 ml/min Current Visit: Yes Status: Acute Plan: Acute on chronic CKD stage 3 Hydrate Monitor renal parameters (3) Diabetes mellitus Onset Date: 09/23/17 Current Visit: No Status: Chronic Plan: Continue home medications and titrate as needed Insulin sliding scale will get an A1c Qualifiers: Diabetes mellitus type: type 2 Diabetes mellitus terminal supervisor insulin use: with snf use Diabetes mellitus complication status: with kidney complications Diabetes mellitus complication detail: with chronic kidney disease Chronic kidney disease stage: stage 3 (moderate) Qualified Code(s): E11.22 - Type 2 diabetes mellitus with diabetic chronic kidney disease; N18.3 - Chronic kidney disease, stage 3 (moderate); Z79.4 - alf (current) use of insulin (4) Hypertension Onset Date: 09/23/17 Current Visit: No Status: Chronic Plan: Continue home medications and titrate as needed Qualifiers: Hypertension type: essential hypertension Qualified Code(s): I10 - Essential (primary) hypertension Discharge Plan: Home Plan to discharge in: 24 Hours - Advance Directives Does patient have a Living Will: No Does patient have a Durable POA for Healthcare: No Time Spent Managing Pts Care (In Minutes): 43
[2018-12-31] MEDS ORDERED: D50W 25 GM/50 ML SYRINGE/VIAL IV PRN (15:38)
[2018-12-31] MEDS ORDERED: GLUCAGON 1 MG/VIAL IM PRN (15:38)
[2018-12-31] MEDS: MECLIZINE HCL 12.5 MG TAB PO SCH ×2 (15:38→20:40)
[2018-12-31] MEDS ORDERED: SODIUM CHL 0.9% 1000 ML BAG IV SCH (16:00)
[2018-12-31] MEDS ORDERED: ONDANSETRON 4 MG/2 ML VIAL IV PRN (16:18)
[2018-12-31] MEDS: INSULIN -REGULAR HUMAN 50 UNIT/0.5 ML ML SQ SCH ×2 (16:30→20:42)
[2018-12-31] MEDS ORDERED: INSULIN -REGULAR HUMAN 50 UNIT/0.5 ML ML SQ SCH (16:30)
--- NOTE | 2018-12-31 18:36 | EKG ---
Test Date: 2018-12-31 Test Time: 10:33:30 Hotel Administrative Assistant: JOYA MEASUREMENT RESULTS: Intervals: Rate: 107 TX: 160 QRSD: 84 QT: 334 QTc: 445 Ford: P: 29 TX: 160 QRS: 86 T: 57 INTERPRETIVE STATEMENTS: Sinus tachycardia Otherwise normal ECG Compared to ECG 09/21/2017 13:57:29 No significant changes Electronically Signed On 12-31-18 18:34:52 WHEEL ADJUSTER by Simone Wallis
[2018-12-31 18:49] LABS: CKMB Creatine Kinase MB < 1.0 ng/mL (0.3-3.6); Troponin I < 0.02 ng/mL (0.0-0.045)
[2018-12-31] MEDS: NA CHLORIDE 0.9% 1,000 ML IV SCH (18:51)
[2018-12-31] MEDS: lisinopriL 10 MG TAB PO SCH (20:41)
[2018-12-31] MEDS: APIXABAN 5 MG TABLET PO SCH (20:42)
[2018-12-31] MEDS: INSULIN GLARGINE 100 UNITS/ML SQ SCH (20:42)
[2018-12-31] MEDS: GABAPENTIN 100 MG CAP PO SCH (20:43)
[2018-12-31] MEDS: ACETAMINOPHEN 500 MG TAB PO PRN (20:43)
[2018-12-31] MEDS ORDERED: INFLUENZA VACCINE (for 3y+) 0.5 ML DOSE IMVAC ONE (21:00)
[2018-12-31] MEDS ORDERED: INSULIN GLARGINE HUM REC ANLOG 60 UNIT SQ SCH (21:00)
[2018-12-31 22:32] VITALS: BMI 29.7
[2019-01-01] MEDS: NA CHLORIDE 0.9% 1,000 ML IV SCH ×3 (03:11→17:39)
[2019-01-01 05:53] LABS: Absolute Lymphocytes (CBC) 0.6 K/uL (0.7-4.9); Basophils % 0.2 % (0-1.3); Hematocrit 31.5 % (36.0-45.0); Lymphocytes % 7.5 % (15.3-44.8); MPV 9.4 fL (7.6-11.3); RBC Red Blood Cell Count 3.91 M/uL (3.86-4.86)
[2019-01-01 06:03] LABS: Albumin 3.1 g/dL (3.4-5.0); Bilirubin Total 0.5 mg/dL (0.2-1.0); Magnesium 2.1 mg/dL (1.8-2.4); Phosphorus 3.3 mg/dL (2.5-4.9); Potassium 4.5 mmol/L (3.5-5.1); Protein, Total 7.5 g/dL (6.4-8.2)
[2019-01-01 06:06] LABS: CKMB Creatine Kinase MB 1.7 ng/mL (0.3-3.6); Troponin I < 0.02 ng/mL (0.0-0.045)
[2019-01-01] MEDS: INSULIN -REGULAR HUMAN 50 UNIT/0.5 ML ML SQ SCH ×4 (08:57→21:00)
[2019-01-01] MEDS: GABAPENTIN 100 MG CAP PO SCH ×3 (08:57→22:07)
[2019-01-01] MEDS: lisinopriL 10 MG TAB PO SCH ×2 (08:57→22:07)
[2019-01-01] MEDS: APIXABAN 5 MG TABLET PO SCH ×2 (08:57→22:07)
[2019-01-01] MEDS: MECLIZINE HCL 12.5 MG TAB PO SCH ×3 (08:57→22:07)
--- NOTE | 2019-01-01 11:51 | P.DS ---
Admission Date: 12/31/18 Discharge Date: 01/01/19 Disposition: ROUTINE DISCHARGE Discharge Condition: GOOD Reason for Admission: Ataxia - Problems (1) Ataxia Current Visit: Yes Status: Acute (2) CKD (chronic kidney disease) stage 3, GFR 30-59 ml/min Current Visit: Yes Status: Acute (3) Diabetes mellitus Onset Date: 09/23/17 Current Visit: No Status: Chronic Qualifiers: Diabetes mellitus type: type 2 Diabetes mellitus fci insulin use: with intermediate designer use Diabetes mellitus complication status: with kidney complications Diabetes mellitus complication detail: with chronic kidney disease Chronic kidney disease stage: stage 3 (moderate) Qualified Code(s): E11.22 - Type 2 diabetes mellitus with diabetic chronic kidney disease; N18.3 - Chronic kidney disease, stage 3 (moderate); Z79.4 - long term acute care registered nurse (current) use of insulin (4) Hypertension Onset Date: 09/23/17 Current Visit: No Status: Chronic Qualifiers: Hypertension type: essential hypertension Qualified Code(s): I10 - Essential (primary) hypertension Brief History of Present Illness: 48-year-old female with past medical history of diabetes mellitus, hypertension, CKD stage 3 came to ER with dizziness and unstable gait. Patient is a poor historian Humphrey most of the history is obtained the chart review and also talking to the family member who is at the bedside. As per the the patient was having some arguments at home . All of a sudden she felt generalized weak and difficulty in ambulating . The patient also had some headache bilateral, associated with some nausea and vomiting. Denies any focal weakness. No fever no chills. Denies any chest pain or shortness of breath. Patient was assessed in the ER and was still continues to have ataxia and was admitted for further management. She had a CT and an MRI done which ruled out any acute stroke. Hospital Course: She was admitted and was monitored closely under telemetry. She had a stroke workup with CT brain and MRA brain which were negative for any acute changes. Continued on her home medications and titrate as needed. She was started on meclizine for dizziness. Started on IV hydration as well. She responded well to the treatment and wanted to go home. she has been discharged home today in a stable condition with advice to follow up with PCP in 1 week and also with Neurology in 1-2 weeks. She also underwent a physical therapy evaluation who recommended home health and home physical therapy placement. case management was consulted. patient will be discharged home once home health is arranged Vital Signs/Physical Exam: Temp Pulse Resp BP Pulse Ox 99 F 95 H 20 129/71 90 L 01/01/19 08:00 01/01/19 08:57 01/01/19 08:00 01/01/19 08:57 01/01/19 08:00 General: Alert, In no apparent distress HEENT: Atraumatic, Normocephalic Neck: Supple Respiratory: Clear to auscultation bilaterally Cardiovascular: Regular rate/rhythm, Normal S1 S2 Capillary refill: <2 Seconds Gastrointestinal: Soft and benign, W/out hepatosplenomegaly Musculoskeletal: No clubbing, No swelling Integumentary: No rashes Neurological: Normal strength at 5/5 x4 extr, Abnormal gait Lymphatics: No axilla or inguinal lymphadenopathy Laboratory Data at Discharge: WBC 8.6 K/uL (4.3-10.9) D 01/01/19 05:13 Hgb 10.8 g/dL (12.0-15.0) L 01/01/19 05:13 Hct 31.5 % (36.0-45.0) L 01/01/19 05:13 Plt Count 177 K/uL (152-406) 01/01/19 05:13 PT 13.2 SECONDS (9.5-12.5) H 12/31/18 10:30 INR 1.12 12/31/18 10:30 Sodium 142 mmol/L (136-145) 01/01/19 05:13 Potassium 4.5 mmol/L (3.5-5.1) 01/01/19 05:13 BUN 27 mg/dL (7-18) H 01/01/19 05:13 Creatinine 2.08 mg/dL (0.55-1.3) H 01/01/19 05:13 Glucose 171 mg/dL (74-106) H 01/01/19 05:13 Phosphorus 3.3 mg/dL (2.5-4.9) 01/01/19 05:13 Magnesium 2.1 mg/dL (1.8-2.4) 01/01/19 05:13 Total Bilirubin 0.5 mg/dL (0.2-1.0) 01/01/19 05:13 AST 21 U/L (15-37) 01/01/19 05:13 ALT 21 U/L (12-78) 01/01/19 05:13 Alkaline Phosphatase 81 U/L (45-117) 01/01/19 05:13 Troponin I < 0.02 ng/mL (0.0-0.045) 01/01/19 05:13 Triglycerides 128 mg/dL (<150) 01/01/19 05:13 Cholesterol 176 mg/dL (<200) 01/01/19 05:13 HDL Cholesterol 43 mg/dL (40-60) 01/01/19 05:13 Cholesterol/HDL Ratio 4.09 01/01/19 05:13 Home Medications: RX: Gabapentin [Neurontin*] 100 mg PO TID 11/09/15 RX: Insulin Glargine,Hum.rec.anlog [Toujeo Solostar] 60 unit SQ BEDTIME RX: Lisinopril 5 mg PO BID 11/09/15 Aspirin [Aspirin EC 81 MG] 81 mg PO DAILY #30 tablet. 01/01/19 RX: Atorvastatin Calcium 20 mg PO DAILY #30 tablet 01/01/19 RX: Meclizine HCl [Antivert*] 25 mg PO TID #30 tab 01/01/19 New Medications: Aspirin [Aspirin EC 81 MG] 81 mg PO DAILY #30 tablet. RX: Atorvastatin Calcium 20 mg PO DAILY #30 tablet RX: Meclizine HCl [Antivert*] 25 mg PO TID #30 tab Patient Discharge Instructions: F/u PCP in 1 week Diet: ADA Activity: Ad maximo Followup: Benito Venegas MD [ASSOCIATE-ACTIVE - CAN ADMIT] - Time spent managing pt's care (in minutes): 39
[2019-01-01 14:07] LABS: CKMB Creatine Kinase MB 3.2 ng/mL (0.3-3.6); Troponin I < 0.02 ng/mL (0.0-0.045)
[2019-01-01] MEDS: ACETAMINOPHEN 500 MG TAB PO PRN (16:18)
--- NOTE | 2019-01-01 17:26 | P.PN ---
Subjective Date of Service: 01/01/19 Chief Complaint: Ataxia Patient started having spike of fever Will hold discharge today Will get a sepsis workup Denies any headache Denies any cough No abdominal pain Review of Systems General: Fever, Chills Eyes: Unremarkable ENT: Unremarkable Cardiovascular: Unremarkable Physical Examination - Vital Signs Temperature: 98.7 F Blood Pressure: 152/75 Pulse: 81 Respirations: 20 Pulse Ox (%): 94 - Physical Exam General: Alert, In no apparent distress HEENT: Atraumatic, Normocephalic Neck: Supple Respiratory: Clear to auscultation bilaterally Cardiovascular: Regular rate/rhythm, Normal S1 S2 Capillary refill: <2 Seconds Gastrointestinal: Soft and benign, W/out hepatosplenomegaly Musculoskeletal: No clubbing Integumentary: No rashes Neurological: Normal strength at 5/5 x4 extr Lymphatics: No axilla or inguinal lymphadenopathy External genitalia: Deferred Rectal: Deferred Assessment & Plan - Problems (Diagnosis) (1) Ataxia Current Visit: Yes Status: Acute Plan: Will monitor closely under telemetry CT, MR brain was negative for any acute stroke on meclizine IV hydration neurology evaluation PT eval (2) CKD (chronic kidney disease) stage 3, GFR 30-59 ml/min Current Visit: Yes Status: Acute Plan: Acute on chronic CKD stage 3 Hydrate Monitor renal parameters (3) Diabetes mellitus Onset Date: 09/23/17 Current Visit: No Status: Chronic Plan: Continue home medications and titrate as needed Insulin sliding scale Qualifiers: Diabetes mellitus type: type 2 Diabetes mellitus buttermaker helper insulin use: with buttermaker helper use Diabetes mellitus complication status: with kidney complications Diabetes mellitus complication detail: with chronic kidney disease Chronic kidney disease stage: stage 3 (moderate) Qualified Code(s): E11.22 - Type 2 diabetes mellitus with diabetic chronic kidney disease; N18.3 - Chronic kidney disease, stage 3 (moderate); Z79.4 - snf (current) use of insulin (4) Hypertension Onset Date: 09/23/17 Current Visit: No Status: Chronic Plan: Continue home medications and titrate as needed Qualifiers: Hypertension type: essential hypertension Qualified Code(s): I10 - Essential (primary) hypertension (5) Fever of unknown origin Current Visit: Yes Status: Acute Plan: The patient spiked a fever Will get a UA, chest x-ray, blood cultures, lactic acid Will start on antibiotic empirically Monitor closely Will hold distressed for today Time Spent Managing Pts Care (In Minutes): 43
[2019-01-01] MEDS ORDERED: Levofloxacin500mg IV 500 MG/100 ML BAG IV SCH (18:00)
--- NOTE | 2019-01-01 19:56 | RAD REPORT ---
EXAM DESCRIPTION: Angelica Single View01/01/2019 7:09 pm CLINICAL HISTORY: Fever COMPARISON: December 31, 2018 FINDINGS: The right hemidiaphragm is elevated. Mild right lung opacities are present The left lung appears clear of acute infiltrate. The heart is normal size IMPRESSION: Mild right lung opacities may represent atelectasis or pneumonia
[2019-01-01] MEDS: INSULIN GLARGINE 100 UNITS/ML SQ SCH (22:07)
[2019-01-01 23:35] LABS: Urine Appearance CLOUDY; Urine Bilirubin NEGATIVE (NEG); Urine Blood 1+ (NEG); Urine Color YELLOW; Urine Glucose TRACE (NEG); Urine Protein 2+ (NEG); Urine Specific Gravity 1.015 (1.005-1.030); Urine pH 5.5 (5.0-7.0)
[2019-01-01 23:39] LABS: Urine Microscopic Reflex ORDER UMIC
[2019-01-02] LABS: Urine Bacteria LOADED /HPF (<20); Urine Culture Reflex Order REFLEXED; Urine RBC <5 /HPF (NONE SEEN)
[2019-01-02 01:22] VITALS: O2SAT 92
[2019-01-02] MEDS: NA CHLORIDE 0.9% 1,000 ML IV SCH ×3 (03:13→14:00)
[2019-01-02 05:51] LABS: Absolute Lymphocytes (CBC) 1.7 K/uL (0.7-4.9); Basophils % 0.4 % (0-1.3); Hematocrit 29.4 % (36.0-45.0); Lymphocytes % 30.1 % (15.3-44.8); MPV 9.5 fL (7.6-11.3); RBC Red Blood Cell Count 3.63 M/uL (3.86-4.86)
[2019-01-02 05:55] LABS: Magnesium 2.1 mg/dL (1.8-2.4); Potassium 4.6 mmol/L (3.5-5.1)
[2019-01-02] MEDS: INSULIN -REGULAR HUMAN 50 UNIT/0.5 ML ML SQ SCH ×2 (07:30→11:30)
[2019-01-02] MEDS: lisinopriL 10 MG TAB PO SCH (08:53)
[2019-01-02] MEDS: APIXABAN 5 MG TABLET PO SCH (08:54)
[2019-01-02] MEDS: MECLIZINE HCL 12.5 MG TAB PO SCH ×2 (08:54→14:00)
[2019-01-02] MEDS: GABAPENTIN 100 MG CAP PO SCH ×2 (08:54→14:00)
--- NOTE | 2019-01-02 13:15 | P.DS ---
Admission Date: 01/02/19 Discharge Date: 01/02/19 Primary Care Provider: Dr. Grant Disposition: ROUTINE DISCHARGE Discharge Condition: GOOD Reason for Admission: Ataxia Consultations: Neurology-Dr. Venegas Procedures: CXR: FINDINGS: The right hemidiaphragm is elevated. Mild right lung opacities are present The left lung appears clear of acute infiltrate. The heart is normal size IMPRESSION: Mild right lung opacities may represent atelectasis or pneumonia MRI Brain: FINDINGS: No significant abnormal signal is present within the brain. Diffusion-weighted/ADC mapping does not reveal evidence of acute infarction. The ventricles are normal caliber. An extra-axial fluid collection is not present The sinuses and mastoids are clear. IMPRESSION: No acute abnormality displayed CT Brain: FINDINGS: An intracranial bleed is not seen The ventricles are normal in caliber. No extra-axial fluid collection is noted. Fluid within the sinuses/ mastoids is not seen. IMPRESSION: No acute intracranial abnormality is seen. Medical Problem List: Ataxia likely benign positional vertigo Fever secondary to UTI with possible atelectasis right lung Acute on chronic kidney disease stage 3 Diabetes mellitus type 2 insulin-dependent Hypertension Hyperlipidemia Hx of Pulmonary embolus on chronic anticoagulation Anemia of chronic disease with history of B12 deficiency Brief History of Present Illness: 48-year-old female presented to the emergency room with ataxia. This occurred after an argument with a family member. Patient was admitted for further evaluation. Initial CT scan unremarkable. Hospital Course: Patient presented with ataxia. This occurred after an argument with family. CT head, MRI brain unremarkable. Patient seen and evaluated by neurology. Neurology felt this was likely benign positional vertigo. At discharge patient is stable. She may continue with meclizine 25 mg 1 pill 3 times a day as needed for dizziness. Fall precautions in place. Recommend follow up with PCP to further monitor and address. Patient was to be discharged when she started have fever. Pro calcitonin negative. White count unremarkable. Patient found to have UTI. Repeat chest x -ray showed possible atelectasis to the right side. Patient without significant respiratory distress. Patient likely with UTI. Urine culture pending at discharge. Wound culture from left wound showed staph aureus. At discharge will continue with doxycycline 100 mg daily for 7 days. UTI precautions provided. Recommend follow up with her PCP in to follow up urine culture results. Patient will be provided incentive spirometer. Patient with acute on chronic renal disease. Patient with stage III disease. Patient is stable this time. Recommend no further use of nonsteroidal anti- inflammatories. Future medications will need to be really details. Recommend follow up with nephrology as outpatient further monitor. Recommend to recheck lab-BMP in 1-2 weeks to monitor her progress. Patient with diabetes mellitus type 2, insulin-dependent. Blood sugars remained stable. At discharge he will continue with Toujeo 60 units subcu at bedtime. Recommend to maintain blood sugars was 140 fasting and less than 200 after meals. Recommend follow up with her PCP to further monitor and address. Patient with hypertension. This has remained stable. At discharge patient will continue with lisinopril 5 mg 1 pill twice daily. Patient with diabetic neuropathy. At discharge will continue with Neurontin 100 mg 1 pill 3 times a day. Patient with hyperlipidemia. At discharge will continue with Lipitor 20 mg daily. Patient with history of pulmonary embolism in the past. Patient on chronic anti coagulation therapy-Eliquis 5 mg daily. Recommend to follow up with her PCP to further address. Will recommend follow up with pulmonology as an outpatient to further address as patient may be able to be taken off Eliquis in the future. Patient with chronic anemia. Recommend follow up with her PCP to further monitor and address. Patient with history of B12 deficiency. Will start B12 supplementation daily. Recommend to recheck lab-CBC in 1-2 weeks to monitor progress. Patient may benefit with GI evaluation in the future to further address. Vital Signs/Physical Exam: Temp Pulse Resp BP Pulse Ox 98.6 F 77 17 139/72 93 01/02/19 08:00 01/02/19 08:53 01/02/19 08:00 01/02/19 08:53 01/02/19 08:00 General: Alert, In no apparent distress, Oriented x3, Cooperative HEENT: Atraumatic Neck: Supple Respiratory: Clear to auscultation bilaterally, Normal air movement Cardiovascular: Normal pulses, Regular rate/rhythm Gastrointestinal: Normal bowel sounds, Soft and benign, Non-distended, No tenderness, No masses, No rebound, No guarding Musculoskeletal: No erythema, No tenderness, No warmth Integumentary: No tenderness/swelling, No erythema, No warmth, No cyanosis Neurological: Normal speech, Normal strength at 5/5 x4 extr, Normal tone, Normal affect Laboratory Data at Discharge: WBC 5.5 K/uL (4.3-10.9) D 01/02/19 05:23 Hgb 10.0 g/dL (12.0-15.0) L 01/02/19 05:23 Hct 29.4 % (36.0-45.0) L 01/02/19 05:23 Plt Count 158 K/uL (152-406) 01/02/19 05:23 PT 13.2 SECONDS (9.5-12.5) H 12/31/18 10:30 INR 1.12 12/31/18 10:30 Sodium 142 mmol/L (136-145) 01/02/19 05:23 Potassium 4.6 mmol/L (3.5-5.1) 01/02/19 05:23 BUN 29 mg/dL (7-18) H 01/02/19 05:23 Creatinine 1.83 mg/dL (0.55-1.3) H 01/02/19 05:23 Glucose 95 mg/dL (74-106) 01/02/19 05:23 Phosphorus 3.3 mg/dL (2.5-4.9) 01/01/19 05:13 Magnesium 2.1 mg/dL (1.8-2.4) 01/02/19 05:23 Total Bilirubin 0.5 mg/dL (0.2-1.0) 01/01/19 05:13 AST 21 U/L (15-37) 01/01/19 05:13 ALT 21 U/L (12-78) 01/01/19 05:13 Alkaline Phosphatase 81 U/L (45-117) 01/01/19 05:13 Troponin I < 0.02 ng/mL (0.0-0.045) 01/01/19 13:26 Triglycerides 128 mg/dL (<150) 01/01/19 05:13 Cholesterol 176 mg/dL (<200) 01/01/19 05:13 HDL Cholesterol 43 mg/dL (40-60) 01/01/19 05:13 Cholesterol/HDL Ratio 4.09 01/01/19 05:13 Home Medications: Gabapentin [Neurontin*] 100 mg PO TID 11/09/15 Insulin Glargine,Hum.rec.anlog [Toranjeeto Solostar] 60 unit SQ BEDTIME 11/09/15 Lisinopril 5 mg PO BID 11/09/15 Atorvastatin Calcium 20 mg PO DAILY #30 tablet 01/01/19 Meclizine HCl [Antivert*] 25 mg PO TID #30 tab 01/01/19 Apixaban [Eliquis] 5 mg PO DAILY 01/02/19 Cyanocobalamin (Vitamin B-12) [Vitamin B-12] 1,000 mcg PO DAILY #90 capsule Doxycycline Hyclate 100 mg PO DAILY #7 tablet 01/02/19 New Medications: Atorvastatin Calcium 20 mg PO DAILY #30 tablet Cyanocobalamin (Vitamin B-12) [Vitamin B-12] 1,000 mcg PO DAILY #90 capsule Doxycycline Hyclate 100 mg PO DAILY #7 tablet Meclizine HCl [Antivert*] 25 mg PO TID #30 tab Patient Discharge Instructions: 1. Recommend follow up with PCP in 1 week to follow up this hospitalization. 2. Patient presented with ataxia. This occurred after an argument with family. CT head, MRI brain unremarkable. Patient seen and evaluated by neurology. Neurology felt this was likely benign positional vertigo. At discharge patient is stable. She may continue with meclizine 25 mg 1 pill 3 times a day as needed for dizziness. Fall precautions in place. Recommend follow up with PCP to further monitor and address. 3. Patient was to be discharged when she started have fever. Pro calcitonin negative. White count unremarkable. Patient found to have UTI. Repeat chest x -ray showed possible atelectasis to the right side. Patient without significant respiratory distress. Patient likely with UTI. Urine culture pending at discharge. Wound culture from left wound showed staph aureus. At discharge will continue with doxycycline 100 mg daily for 7 days. UTI precautions provided. Recommend follow up with her PCP in to follow up urine culture results. Patient will be provided incentive spirometer. 4. Patient with acute on chronic renal disease. Patient with stage III disease. Patient is stable this time. Recommend no further use of nonsteroidal anti- inflammatories. Future medications will need to be really details. Recommend follow up with nephrology as outpatient further monitor. Recommend to recheck lab-BMP in 1-2 weeks to monitor her progress. 5. Patient with diabetes mellitus type 2, insulin-dependent. Blood sugars remained stable. At discharge he will continue with Toujeo 60 units subcu at bedtime. Recommend to maintain blood sugars was 140 fasting and less than 200 after meals. Recommend follow up with her PCP to further monitor and address. 6. Patient with hypertension. This has remained stable. At discharge patient will continue with lisinopril 5 mg 1 pill twice daily. 7. Patient with diabetic neuropathy. At discharge will continue with Neurontin 100 mg 1 pill 3 times a day. 8. Patient with hyperlipidemia. At discharge will continue with Lipitor 20 mg daily. 9. Patient with history of pulmonary embolism in the past. Patient on chronic anti coagulation therapy-Eliquis 5 mg daily. Recommend to follow up with her PCP to further address. Will recommend follow up with pulmonology as an outpatient to further address as patient may be able to be taken off Eliquis in the future. 10. Patient with chronic anemia. Recommend follow up with her PCP to further monitor and address. Recommend to recheck lab-CBC in 1-2 weeks to monitor progress. Patient may benefit with GI evaluation in the future to further address. Diet: ADA Activity: Ad maximo Followup: Benito Venegas MD [ASSOCIATE-ACTIVE - CAN ADMIT] - (Please call to make an appointment. ) Time spent managing pt's care (in minutes): 55
[2019-01-02 15:14] VITALS: BP 137/72; TEMP 98.4
--- NOTE | 2019-01-02 16:08 | CON ---
Reason For Consultation: Consultation called because of vertigo with unsteady gait. History Of Present Illness: Ms. Stewart is a 48-year-old patient with multiple medical problems in cluding hypertension, dyslipidemia, chronic stage 3 kidney disease, who developed vertiginous symptom s with nausea and vomiting the day after an argument with her daughter and her daughter's boyfriend. She said she had a pretty significant verbal altercation. There was no physical altercation involve d and late at night after going to bed and waking up, she noticed room seemed to be moving or turning . The symptoms would worsen as she sat up and she tried to walk. She was unable to because of falli ng and progressed to a significant nausea and vomiting. She was unable to maintain balance. She had diffuse weakness in all extremities, but no focal weakness or numbness. There was headache. She ca me to [facility] and had a head CT scan that showed no acute ischemic or hemorrhagic change after admission for observation and workup. Brain MRI revealed no acute abnormalities. The patient was given intravenous fluids and Zofran with meclizine, which helped to resolve her symptoms. Nichelle r, she was diagnosed with a possible urinary tract infection with the urinalysis showing that she was loaded with bacteria, greater than 50 white blood cells, 3+ esterase, and she received 500 mg of Lev aquin every 24 hours and it was given intravenously. She was continued on antihypertensive medicatio ns and insulin along with receiving Eliquis dosage of 5 mg twice daily. The presumed reason for the Eliquis had been clot discovered in the right lung, however, that was in September of 2017. Her symptoms have largely resolved and she was able to ambulate over 250 feet with physical therapy a nd not requiring any steadying. She did it independently without vertigo. Past Medical History: Diabetes mellitus type 2, insulin, diabetic retinopathy with blindness, periph eral neuropathy, hypertension, and reported clot in the right lung. Allergies: ZOSYN. Medications: At home, Neurontin 100 mg 3 times daily, Toujeo 60 units at bedtime, lisinopril 5 mg tw ice daily, Eliquis 5 mg twice daily. Surgical History: None. Family History: Has heart disease, hypertension, diabetes in father; and diabetes in mother. Social History: No alcohol, tobacco, or IV drug use. Review of Systems: Aside from mentioned above and prior to her episode of nausea and vomiting, she had no other episodes of nausea, vomiting, myalgias, arthralgias, headache, weight change, rash. No psychiatric issues. No gastrointestinal or genitourinary issues. Physical Examination: Vital Signs: Blood pressure 130 to 139 over 70 to 72, her pulse is 77, respiratory rate 17, temperat ure 98.6, oxygen saturation 92% on room air. Weight 173 pounds, height 5 feet 4 inches, BMI 29.5. General: Ms. Stewart is resting comfortably in bed. She is in no acute distress. She is normocep halic, atraumatic. Sclerae are anicteric. Oropharynx is pink and moist. Neck: Supple. Chest: Clear. Heart: Regular. Extremities: Show no edema, cyanosis or clubbing. Neurologic: Alert, oriented to situation, place, and person. Follows all commands appropriately. S he has no cranial nerve deficits. Motor examination intact in upper and lower extremities, 5/5 stren gth proximally and distally. Sensory exam, she is intact in the upper and lower extremities proximal ly and distally. Reflexes 1+ in the upper and lower extremities. Gait, she has good stance, stride, and arm swing. Laboratory Studies: Complete blood count with differential is remarkable for mildly low hemoglobin a nd hematocrit of 10.09 and 29.4, platelets 158. INR 1.12. Chemistries show elevated creatinine of 1 .83, glucose ranged from 95 to 136, calcium 8.1 which is mildly low, magnesium 2.1. Her liver functi on studies are unremarkable. LDL cholesterol 170, HDL cholesterol 43, TSH 0.6. Her chest x-ray show s mild right lung opacities representing possible atelectasis versus pneumonia, that was on yesterday . Assessment: Ms. Stewart is a 48-year-old patient with benign paroxysmal positional vertigo, possib le also aggravated by urinary tract infection and an episode of emotional stress. At this point, she does not have a stroke on exam or brain MRI and she is back to her usual level of functioning. She does have risk factors for stroke, however, and is on Eliquis at this point. She has diabetes mellit us with fair control along with hypertension. Plan: 1.Continue with aggressive management of hypertension, diabetes mellitus. 2.May use Zofran as needed for nausea and meclizine as needed for vertigo. 3.Complete treatment of urinary tract infection as per primary team. 4.She may follow up in Dr. Venegas's office 1 month after discharge. VINAY Voice ID: [id number] Report ID: [id number]
[2019-01-02] MEDS ORDERED: Levofloxacin 250mg IV 250 MG/50 ML BAG IV SCH (18:00)
== END 2019-01-02 14:53 | disposition home or self-care (01) | DRG 149 ==
LOC: ER 09:56 → ERHOLD 16:19 → 2ND 18:17 → OBSVTOIN 01-02 11:46
PROVIDERS: ADMIT Family Medicine; ATTEND Family Medicine
DX: H81.10 Benign paroxysmal vertigo, unspecified ear (principal); N39.0 Urinary tract infection, site not specified; N17.9 Acute kidney failure, unspecified; J98.11 Atelectasis; I12.9 Hypertensive chronic kidney disease with stage 1 through stage 4 chronic kidney disease, or unspecified chronic kidney disease; E11.22 Type 2 diabetes mellitus with diabetic chronic kidney disease; N18.3 Chronic kidney disease, stage 3 (moderate); E78.5 Hyperlipidemia, unspecified; D63.1 Anemia in chronic kidney disease; E11.40 Type 2 diabetes mellitus with diabetic neuropathy, unspecified; Z86.711 Personal history of pulmonary embolism; Z79.01 Long term (current) use of anticoagulants; Z23 Encounter for immunization
CPT/HCPCS: 36415; 51702; 70450; 70551; 71045; 80048; 80053; 80061; 80076; 80307; 81003; 81015; 82553; 82947; 83605; 83735; 83880; 84100; 84145; 84443; 84484; 85025; 85610; 87040; 87086; 87088; 90471; 93005; 96374; 96375; 97112; 97116; 97161; 99285; G0378; J1200; J1815; J2405; J2765; J7030; J8597; Q2035

== ENCOUNTER 2019-03-27 23:29 | Emergency (ER) | payer OTHER ==
--- OUTSIDE RECORDS SUMMARY | 2019-03-27 23:32 | XMS REPORT ---
:1970 Author Organization e[employer] Care Team Providers Name Role Phone Grant, Na Provider Role Unavailable Allergies, Adverse Reactions, Alerts Substance Reaction Event Type N.K.D.A. Info Not Available Non Drug Allergy Problems Problem Type Condition Code Onset Dates Condition Status Problem [facility] current use of insulin Z79.4 [...] End Status Dosage System Date Date Paxil [facility] 20610248173 20 MG Orally Active 1 tablet in Once a day the morning Eliquis 5 mg ND 17729260589 5 mg by mouth Oct 01Mar Active one twice daily 2017 Angie FuentesMickie ND 91809151324 300 UNIT/ML Active 80 units Subcutaneous once a day Lisinopril ND 23221581002 20 MG Orally Active 1 tablet Once a day Glimepiride ND 18292473343 2 MG Orally Inactive 1 tablet with Once a day breakfast or the first main meal of the day Pravastatin [facility] 05529046818 20 MG Orally Active 1 tablet Sodium Once a day Gabapentin [facility] 51088543693 300 MG Orally Active 2 capsule Once a day before bedtime Clotrimazole [facility] 59158748575 1 % Externally Active 1 application Twice a day to affected area Ferralet [address] [facility] 35038147447 90-1 MG Orally Inactive 1 tablet Once a day Lipitor [facility] 21582630167 10 MG Orally Inactive 1 tablet Once a day Results No Known Results Summary Purpose eClinicalWorks Submission
--- OUTSIDE RECORDS SUMMARY | 2019-03-27 23:32 | XMS REPORT ---
:1970 Author Organization [employer] Care Team Providers Name Role Phone Grant, Na Provider Role Unavailable Allergies No Known Allergies Problems Problem Type Condition Code Onset Dates Condition Status Problem [facility] current use of insulin Z79.4 Active Problem [...]
--- OUTSIDE RECORDS SUMMARY | 2019-03-27 23:32 | XMS REPORT ---
:1970 Author Organization [employer] Care Team Providers Name Role Phone Grant, Na Provider Role Unavailable Allergies No Known Allergies Problems Problem Type Condition Code Onset Dates Condition Status Problem residential current use of insulin Z79.4 Active Problem [...]
--- OUTSIDE RECORDS SUMMARY | 2019-03-27 23:33 | XMS REPORT ---
[...] Problem Vitamin D deficiency E55.9 Active Problem shelter current use of insulin Z79.4 Active Problem Depression with anxiety F41.8 Active Medications Medication Code Code Instructions Start End Status Dosage System Date Date Eliquis 5 mg ND 01174729978 5 mg by mouth Active one twice daily Citalopram ND 71609594208 10 MG Orally Feb 25, Active 1 tablet Hydrobromide Once a day 2018 Paxil [place] 84314287141 20 MG Orally Inactive 1 tablet in Once a day the morning Toranjeeto GinaoStar [facility] 91707692550 300 UNIT/ML Active 60 units Subcutaneous once a day Gabapentin [facility] 13733760363 300 MG Orally Active 2 capsule Once a day before bedtime Ferralet 90 [facility] 90034094514 90-1 MG Orally Inactive 1 tablet Once a day Lisinopril [facility] 35280807324 20 MG Orally Active 1 tablet Once a day Pravastatin [facility] 47211832448 20 MG Orally Inactive 1 tablet Sodium Once a day Clotrimazole [facility] 56345025128 1 % Externally Active 1 application Twice a day to affected area Results No Known Results Summary Purpose [employer]ClinicalWorks Submission
--- OUTSIDE RECORDS SUMMARY | 2019-03-27 23:33 | XMS REPORT ---
[...] Status Dosage System Date Date FreeStyle NDC [id number] - sc every Mar 05, Active as directed Suleiman Sensor 2018 System FreeStyle NDC 40262947779 - [place] dailyMar 05, Active as directed Suleiman [place] 2018 Results No Known Results Summary Purpose [employer]ClinicalWorks Submission
--- OUTSIDE RECORDS SUMMARY | 2019-03-27 23:33 | XMS REPORT ---
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.4 Active Problem Benign essential HTN I10 Active Assessment Moderate episode of recurrent F33.1 Active major depressive disorder Problem Depression with anxiety F41.8 Active Problem Neuropathy G62.9 Active Medications Medication Code Code Instructions Start End Status Dosage System Date Date Citalopram ND 89561265102 10 MG Orally Feb 25, Active 1 tablet Hydrobromide Once a day 2018 Angie FuentesMickie ND 77747029041 300 UNIT/ML Active 60 units Subcutaneous once a day Eliquis 5 mg ND 50209444362 5 mg by mouth Active one twice daily Lisinopril [facility] 84931596477 20 MG Orally Active 1 tablet Once a day Results No Known Results Summary Purpose eClinicalWorks Submission
--- OUTSIDE RECORDS SUMMARY | 2019-03-27 23:33 | XMS REPORT ---
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
--- OUTSIDE RECORDS SUMMARY | 2019-03-27 23:33 | XMS REPORT ---
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
--- OUTSIDE RECORDS SUMMARY | 2019-03-27 23:34 | XMS REPORT ---
[...] Problem Vitamin D deficiency E55.9 Active Problem skilled nursing current use of insulin Z79.4 Active Problem Depression with anxiety F41.8 Active Medications Medication Code Code Instructions Start End Status Dosage System Date Date Lisinopril [facility] [id number] 20 MG Orally Active 1 tablet Once a day Citalopram [facility] 55346418239 10 MG Orally Active 1 tablet Hydrobromide Once a day Pravastatin [facility] 89759128597 20 MG Orally Inactive 1 tablet Sodium Once a day Gabapentin [facility] 54754770387 300 MG Orally Active 2 capsule Once a day before bedtime Paxil [facility] 23548762572 20 MG Orally Inactive 1 tablet in Once a day the morning FreeStyle Suleiman [facility] [id number] - [place] dailyMar 05, Active as directed Sutton 2018 Eliquis 5 mg [facility] 10287570403 5 mg by mouth Active one twice daily Ferralet 90 [facility] 19889135688 90-1 MG Orally Inactive 1 tablet Once a day Clotrimazole [facility] 86367347413 1 % Externally Active 1 application Twice a day to affected area Toujeo SoloStar [facility] [id number] 300 UNIT/ML Active 70 units Subcutaneous once a day FreeStyle Suleiman [facility] [id number] - [place] every Mar 05, Active as directed Sensor System 2018 Results No Known Results Summary Purpose eClinicalWorks Submission
[2019-03-28] MEDS ORDERED: ONDANSETRON 4 MG/2 ML VIAL ONE ×2 (00:07→01:23)
[2019-03-28] MEDS ORDERED: MORPHINE 4 MG/ML SYR ONE (00:07)
[2019-03-28] MEDS ORDERED: NA CHLORIDE 0.9% 500 ML ONE (00:07)
[2019-03-28 00:25] LABS: Absolute Lymphocytes (CBC) 2.8 K/uL (0.7-4.9); Basophils % 0.5 % (0-1.3); Hematocrit 34.2 % (36.0-45.0); Lymphocytes % 27.5 % (15.3-44.8); RBC Red Blood Cell Count 4.25 M/uL (3.86-4.86)
[2019-03-28 00:31] LABS: Albumin 3.6 g/dL (3.4-5.0); Bilirubin Direct 0.1 mg/dL (0-0.2); Bilirubin Total 0.4 mg/dL (0.2-1.0); Potassium 4.2 mmol/L (3.5-5.1); Protein, Total 8.4 g/dL (6.4-8.2)
[2019-03-28] MEDS ORDERED: KETOROLAC 30 MG/ML INJ ONE (01:23)
[2019-03-28 01:59] LABS: Urine Blood 3+ (NEG); Urine Glucose 2+ (NEG)
[2019-03-28 02:00] LABS: Urine Protein 3+ (NEG)
[2019-03-28] MEDS ORDERED: CEFTRIAXONE/SWI 1gm 1 GM/10 ML SYR ONE (02:32)
--- NOTE | 2019-03-28 02:34 | ER ---
Nurse's Notes [facility] Name: Tyra Stewart Age: 48 yrs Sex: Female : 1970 Arrival Date: 03/27/2019 Time: 23:32 Bed 8 Private MD: Althea Grant Diagnosis: Urinary tract infection, site not specified Presentation: 03/27 23:50 Presenting complaint: Patient states: I am having this abdominal pain (lower) going to rr5 my vaginal area and low back area. started around 230PM today. I noticed my urine smells strong. around 7PM I took Tylenol for the pain, but around 10PM the pain it gets worst and worst. 23:50 Transition of care: patient was not received from another setting of care. Onset of rr5 symptoms was March 27, 2019. Risk Assessment: Do you want to hurt yourself or someone else? Patient reports no desire to harm self or others. Initial Sepsis Screen: Does the patient meet any 2 criteria? No. Patient's initial sepsis screen is negative. Does the patient have a suspected source of infection? No. Patient's initial sepsis screen is negative. Care prior to arrival: Medication(s) given: Tylenol. 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 - Coronavirus screen:: The patient has NOT traveled to [place] in the past 14 days. Proceed with normal triage process as indicated. - Social history:: Smoking status: unknown Patient/guardian denies using alcohol, street drugs. - Ebola Screening: : Patient negative for fever greater than or equal to 101.5 degrees Fahrenheit, and additional compatible Ebola Virus Disease symptoms Patient denies exposure to infectious person Patient denies travel to an Ebola-affected area in the 21 days before illness onset. Screenin/14 23:59 Abuse screen: Denies threats or abuse. Denies injuries from another. Nutritional rr5 screening: No deficits noted. Tuberculosis screening: No symptoms or risk factors identified. Fall Risk IV access (20 points). Total Sun Fall Scale indicates No Risk (0-24 pts). Assessment: 03/28 00:00 General: Appears in no apparent distress. uncomfortable, ill, Behavior is calm, rr5 cooperative, appropriate for age. Pain: Complains of pain in pelvis Pain radiates to vaginal and back Pain currently is 10 out of 10 on a pain scale. Quality of pain is described as aching, sharp, Pain began gradually, Is intermittent. 00:00 Neuro: Level of Consciousness is awake, alert, obeys commands, Oriented to person, rr5 place, time, situation. Cardiovascular: Capillary refill < 3 seconds Patient's skin is warm and dry. Respiratory: Airway is patent Respiratory effort is even, unlabored, Respiratory pattern is regular, symmetrical. GI: Abdomen is round non-distended, Bowel sounds present X 4 quads. Abd is soft and non tender X 4 quads. Guarding noted in right lower quadrant and left lower quadrant. : Reports pain in suprapubic area lower quadrant(s) strong odor when peeing. EENT: No signs and/or symptoms were reported regarding the EENT system. Derm: Skin is intact, is healthy with good turgor, Skin temperature is warm. Musculoskeletal: Circulation, motion, and sensation intact. Capillary refill < 3 seconds. 00:35 Reassessment: Patient appears in no apparent distress at this time. Patient is alert, rr5 oriented x 3, equal unlabored respirations, skin warm/dry/pink. Patient states symptoms have improved. Pain: Pain currently is 6 out of 10 on a pain scale. 01:10 Reassessment: Patient returned from CT; states nausea and pain returning at this time. lp1 01:20 Reassessment: Verbal order from Provider for Toradol 15mg IV, Zofran 4mg IV. lp1 02:10 Reassessment: Patient appears in no apparent distress at this time. Patient and/or rr5 family updated on plan of care and expected duration. Pain level reassessed. Patient is alert, oriented x 3, equal unlabored respirations, skin warm/dry/pink. 02:55 Reassessment: Patient appears in no apparent distress at this time. no Nausea or rr5 vomiting reported after PO challenge. 03:00 Reassessment: Patient appears in no apparent distress at this time. Patient is alert, rr5 oriented x 3, equal unlabored respirations, skin warm/dry/pink. complaining of pruritus, denies any or SOB. ED provider aware with order made and carried out. 03:38 Reassessment: Patient appears in no apparent distress at this time. Patient is alert, rr5 oriented x 3, equal unlabored respirations, skin warm/dry/pink. denies , sob, tightening of the throat. discharge instruction given and explained without complaints made. Patient states feeling better. Patient states symptoms have improved. Vital Signs: 03/27 23:55 BP 176 / 110; Pulse 89; Resp 20; Temp 97.8; Pulse Ox 99% ; Weight 78.02 kg; Height 5 rr5 ft. 4 in. (162.56 cm); Pain 10/10; 03/28 00:15 BP 156 / 87; Pulse 68; Resp 18; Pulse Ox 100% on R/A; lp1 01:12 BP 160 / 83; Pulse 88; Resp 18; Pulse Ox 100% on R/A; Pain 7/10; lp1 03:00 BP 126 / 76; Pulse 85; Resp 19; Temp 98.4; Pulse Ox 99% on R/A; Pain 0/10; rr5 03:30 BP 126 / 75; Pulse 75; Resp 16; Pulse Ox 98% ; rr5 03/27 23:55 Body Mass Index 29.52 (78.02 kg, 162.56 cm) rr5 ED Course: 03/27 23:32 Patient arrived in ED. es 23:33 Althea Grant MD is Private Physician. es 23:41 [facility]. cp 23:41 Ronan Conklin MD is Attending Physician. cp 23:51 Brayden Butler RN is Primary Nurse. rr5 23:55 Triage completed. rr5 23:55 Inserted saline lock: 20 gauge in right antecubital area, using aseptic technique. lp1 Blood collected. 23:58 Arm band placed on right wrist. EKG completed in triage. Results shown to MD. rr5 23:59 Patient has correct armband on for positive identification. Placed in gown. Bed in low rr5 position. Call light in reach. Side rails up X2. Pulse ox on. NIBP on. 03/28 02:32 Althea Grant MD is Referral Physician. cp 03:00 Primary Nurse role handed off by Brayden Butler RN rr5 03:05 Brayden Butler, ROLAND is Primary Nurse. rr5 03:08 No provider procedures requiring assistance completed. rr5 03:38 IV discontinued, intact, bleeding controlled, No redness/swelling at site. Pressure rr5 dressing applied. Administered Medications: 00:05 Drug: morphine 4 mg {Note: RASS 1.} Route: IVP; Site: right antecubital; lp1 00:15 Follow up: Response: Pain is decreased; RASS: Alert and Calm (0) lp1 00:05 Drug: Zofran 4 mg Route: IVP; Site: right antecubital; lp1 00:15 Follow up: Response: No adverse reaction lp1 00:05 Drug: NS 0.9% 500 ml Route: IV; Rate: bolus; Site: right antecubital; lp1 00:40 Follow up: IV Status: Completed infusion; IV Intake: 500ml lp1 01:25 Drug: Zofran 4 mg Route: IVP; Site: right antecubital; lp1 03:40 Follow up: Response: No adverse reaction; Marked relief of symptoms rr5 01:25 Drug: TORadol - Ketorolac 15 mg Route: IVP; Site: right antecubital; lp1 02:25 Follow up: Response: No adverse reaction rr5 02:32 Drug: Rocephin 1 grams Route: IV; Rate: calculated rate; Site: right antecubital; rr5 03:06 Follow up: Response: Adverse reaction, Physician notified; IV Status: Completed rr5 infusion; IV Intake: 10ml ; complaining of pruritus 03:06 Drug: Benadryl 25 mg Route: IVP; Site: right antecubital; rr5 03:39 Follow up: Response: No adverse reaction rr5 Intake: 00:40 IV: 500ml; Total: 500ml. lp1 03:06 IV: 10ml; Total: 510ml. rr5 Outcome: 02:32 Discharge ordered by . cp 02:59 Patient left the ED. rr5 03:32 Discharged to home ambulatory, with family. rr5 03:32 Condition: stable 03:32 Discharge instructions given to patient, family, Instructed on discharge instructions, follow up and referral plans. medication usage, Demonstrated understanding of instructions, follow-up care, medications, Prescriptions given X 3. 03:41 Patient left the ED. rr5 Addendum: 03/31/2019 07:09 Addendum: Culture Results: Positive urine culture. No further action required. Bacteria i w sensitive to prescribed antibiotic. Signatures: Skylar Barr Irene, RN RN iw Jaymie Canchola RN RN lp1 Silvestre Navarro PA PA cp Roque, Raymond, RN RN rr5
--- NOTE | 2019-03-28 02:34 | EDPHYS ---
Physician Documentation [facility] Name: Tyra Stewart Age: 48 yrs Sex: Female : 1970 Arrival Date: 03/27/2019 Time: 23:32 Bed 8 Private MD: Althea Grant ED Physician Ronan Conklin HPI: 03/27 23:56 This 48 yrs old Female presents to ER via Ambulatory with complaints of cp Abdominal Pain, Back Pain, low. 23:56 The patient presents with abdominal pain in the left lower quadrant. Onset: The cp symptoms/episode began/occurred today. The symptoms radiate to left back. Associated signs and symptoms: Pertinent negatives: constipation, diarrhea, dysuria, fever, vomiting. The symptoms are described as constant. 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 - Coronavirus screen:: The patient has NOT traveled to [place] in the past 14 days. Proceed with normal triage process as indicated. - Social history:: Smoking status: unknown Patient/guardian denies using alcohol, street drugs. - Ebola Screening: : Patient negative for fever greater than or equal to 101.5 degrees Fahrenheit, and additional compatible Ebola Virus Disease symptoms Patient denies exposure to infectious person Patient denies travel to an Ebola-affected area in the 21 days before illness onset. ROS: 00:00 Constitutional: Negative for body aches, chills, fever, poor PO intake. cp 00:00 Eyes: Negative for injury, pain, redness, and discharge. cp 00:00 ENT: Negative for drainage from ear(s), ear pain, sore throat, difficulty swallowing, difficulty handling secretions. 00:00 Cardiovascular: Negative for chest pain. 00:00 Respiratory: Negative for cough, shortness of breath, wheezing. 00:00 Abdomen/GI: Positive for abdominal pain, of the posterior aspect of left lateral abdomen, anterior aspect of left lateral abdomen and left lower quadrant, Negative for vomiting, diarrhea, constipation. 00:00 Back: Positive for flank pain, on the left. 00:00 : Negative for hematuria, vaginal bleeding, vaginal discharge. 00:00 Skin: Negative for rash. 00:00 Neuro: Negative for altered mental status, headache, weakness. 00:00 All other systems are negative. Exam: 00:10 Constitutional: The patient appears in no acute distress, alert, awake, non-toxic, well cp developed, well nourished, uncomfortable. 00:10 Head/Face: Normocephalic, atraumatic. cp 00:10 Eyes: Periorbital structures: appear normal, Conjunctiva: normal, no exudate, no injection, Sclera: no appreciated abnormality, Lids and lashes: appear normal, bilaterally. 00:10 ENT: External ear(s): are unremarkable, Nose: is normal, Mouth: Lips: moist, Oral mucosa: moist, Posterior pharynx: is normal, airway is patent, no erythema, no exudate. 00:10 Chest/axilla: Inspection: normal, Palpation: is normal, no crepitus, no tenderness. 00:10 Cardiovascular: Rate: normal, Rhythm: regular. 00:10 Respiratory: the patient does not display signs of respiratory distress, Respirations: normal, no use of accessory muscles, labored breathing, is not present, Breath sounds: are clear throughout, no decreased breath sounds. 00:10 Abdomen/GI: Inspection: abdomen appears normal, Bowel sounds: active, all quadrants, Palpation: soft, in all quadrants, moderate abdominal tenderness, in the posterior aspect of left lateral abdomen, anterior aspect of left lateral abdomen and left lower quadrant, rebound tenderness, is not appreciated, voluntary guarding, is elicited in the posterior aspect of left lateral abdomen, anterior aspect of left lateral abdomen and left lower quadrant. 00:10 Back: pain, that is moderate, of the left low back, ROM is painful. 00:10 Skin: no rash present. Vital Signs: 03/27 23:55 BP 176 / 110; Pulse 89; Resp 20; Temp 97.8; Pulse Ox 99% ; Weight 78.02 kg; Height 5 rr5 ft. 4 in. (162.56 cm); Pain 10/10; 03/28 00:15 BP 156 / 87; Pulse 68; Resp 18; Pulse Ox 100% on R/A; lp1 01:12 BP 160 / 83; Pulse 88; Resp 18; Pulse Ox 100% on R/A; Pain 7/10; lp1 03:00 BP 126 / 76; Pulse 85; Resp 19; Temp 98.4; Pulse Ox 99% on R/A; Pain 0/10; rr5 03:30 BP 126 / 75; Pulse 75; Resp 16; Pulse Ox 98% ; rr5 03/27 23:55 Body Mass Index 29.52 (78.02 kg, 162.56 cm) rr5 MDM: 03/27 23:42 Patient medically screened. cp 03/28 02:29 Data reviewed: vital signs, nurses notes, lab test result(s), radiologic studies, CT cp scan. Counseling: I had a detailed discussion with the patient and/or guardian regarding: the historical points, exam findings, and any diagnostic results supporting the discharge/admit diagnosis, lab results, radiology results, the need for outpatient follow up, a family practitioner, to return to the emergency department if symptoms worsen or persist or if there are any questions or concerns that arise at home. Response to treatment: the patient's symptoms have markedly improved after treatment, and as a result, I will discharge patient. 03/28 00:00 Order name: Basic Metabolic Panel cp 03/28 00:00 Order name: CBC with Diff cp 03/28 00:00 Order name: Creatinine for Radiology cp 03/28 00:00 Order name: Hepatic Function cp 03/28 00:00 Order name: Lipase cp 03/28 00:00 Order name: Urine Microscopic Only cp 03/28 00:32 Order name: Basic Metabolic Panel; Complete Time: 00:47 EDMS 02 00:47 Interpretation: Normal except: GLUC 279; BUN 28; CRE 1.80; GFR 30. cp 03/28 00:32 Order name: Liver (Hepatic) Function; Complete Time: 00:47 EDMS 02 00:47 Interpretation: Normal except: AST 12; ALK 137; TP 8.4; GLOB 4.8; A/G 0.8. 03/28 00:32 Order name: Lipase; Complete Time: 00:47 EDMS 03/28 00:35 Order name: CBC with Automated Diff; Complete Time: 00:47 EDMS 03/28 00:48 Interpretation: Normal except: HGB 11.3; HCT 34.2; MCH 26.7. cp 03/28 00:49 Order name: Creatinine (Radiology Only); Complete Time: 01:08 EDMS 03/28 01:08 Interpretation: Abnormal: CRE 1.80; GFR 30. 03/28 01:06 Order name: Urine Dipstick--Ancillary (enter results) [facility] 03/28 01:06 Order name: Urine --Ancillary (enter results) [facility] 03/28 02:03 Order name: Urine --Ancillary; Complete Time: 02:15 EDMS 03/28 00:00 Order name: IV Saline Lock; Complete Time: 00:01 03/28 00:00 Order name: Labs collected and sent; Complete Time: 00:01 03/28 00:00 Order name: CT Stone Protocol 03/28 00:00 Order name: Urine Dipstick-Ancillary (obtain specimen); Complete Time: 00:57 03/28 00:00 Order name: Urine Test (obtain specimen); Complete Time: 00:57 03/28 02:03 Order name: Urine Dipstick-Ancillary; Complete Time: 02:15 EDMS 03/28 02:16 Order name: PO challenge; Complete Time: 02:46 03/28 02:30 Order name: Urine Culture 03/28 02:59 Order name: Urine Microscopic Only EDMS Administered Medications: 00:05 Drug: morphine 4 mg {Note: RASS 1.} Route: IVP; Site: right antecubital; lp1 00:15 Follow up: Response: Pain is decreased; RASS: Alert and Calm (0) lp1 00:05 Drug: Zofran 4 mg Route: IVP; Site: right antecubital; lp1 00:15 Follow up: Response: No adverse reaction lp1 00:05 Drug: NS 0.9% 500 ml Route: IV; Rate: bolus; Site: right antecubital; lp1 00:40 Follow up: IV Status: Completed infusion; IV Intake: 500ml lp1 01:25 Drug: Zofran 4 mg Route: IVP; Site: right antecubital; lp1 03:40 Follow up: Response: No adverse reaction; Marked relief of symptoms rr5 01:25 Drug: TORadol - Ketorolac 15 mg Route: IVP; Site: right antecubital; lp1 02:25 Follow up: Response: No adverse reaction rr5 02:32 Drug: Rocephin 1 grams Route: IV; Rate: calculated rate; Site: right antecubital; rr5 03:06 Follow up: Response: Adverse reaction, Physician notified; IV Status: Completed rr5 infusion; IV Intake: 10ml ; complaining of pruritus 03:06 Drug: Benadryl 25 mg Route: IVP; Site: right antecubital; rr5 03:39 Follow up: Response: No adverse reaction rr5 Disposition: 04:13 Co-signature as Attending Physician, Ronan Conklin MD I agree with the assessment and kdr plan of care. Disposition: 03/28/19 02:32 Discharged to Home. Impression: Urinary tract infection, site not specified. - Condition is Stable. - Discharge Instructions: Urinary Tract Infection, Adult. - Prescriptions for Zofran 4 mg Oral Tablet - take 1 tablet by ORAL route every 12 hours As needed; 20 tablet. Tramadol 50 mg Oral Tablet - take 1 tablet by ORAL route every 8 hours as needed; 12 tablet. Macrobid 100 mg Oral Capsule - take 1 capsule by ORAL route every 12 hours for 7 days; 14 capsule. - Medication Reconciliation Form, Thank You Letter, Antibiotic Education, Prescription Opioid Use form. - Follow up: Althea Grant MD; When: 2 - 3 days; Reason: Recheck today's complaints. - Problem is new. - Symptoms have improved. Signatures: Dispatcher [employer] [facility] Ronan Conklin MD MD kdr Pena, Laura, RN RN lp1 Silvestre Navarro PA PA cp Roque, Raymond RN RN rr5 Corrections: (The following items were deleted from the chart) 02:59 02:32 03/28/2019 02:32 Discharged to Home. Impression: Urinary tract infection, site rr5 not specified. Condition is Stable. Forms are Medication Reconciliation Form, Thank You Letter, Antibiotic Education, Prescription Opioid Use. Follow up: Althea Grant; When: 2 - 3 days; Reason: Recheck today's complaints. Problem is new. Symptoms have improved. cp 03:41 02:59 03/28/2019 02:32 Discharged to Home. Impression: Urinary tract infection, site rr5 not specified. Condition is Stable. Discharge Instructions: Urinary Tract Infection, Adult. Prescriptions for Ceftin 500 mg Oral Tablet - take 1 tablet by ORAL route every 12 hours for 10 days; 20 tablet, Zofran 4 mg Oral Tablet - take 1 tablet by ORAL route every 12 hours As needed; 20 tablet, Tramadol 50 mg Oral Tablet - take 1 tablet by ORAL route every 8 hours as needed; 12 tablet. and Forms are Medication Reconciliation Form, Thank You Letter, Antibiotic Education, Prescription Opioid Use. Follow up: Althea Grant; When: 2 - 3 days; Reason: Recheck today's complaints. Problem is new. Symptoms have improved. rr5
[2019-03-28 02:57] LABS: Urine Bacteria >50 /HPF (<20); Urine Other Components PROTOPLASTS SEEN (NONE SEEN); Urine RBC >50 /HPF (NONE SEEN)
[2019-03-28 02:58] LABS: Urine Culture Reflex Order NOT NEEDED
[2019-03-28] MEDS ORDERED: DIPHENHYDRAMINE 50 MG/ML VIAL ONE (03:05)
[2019-03-28 04:07] VITALS: BP 126/76; TEMP 98.4; O2SAT 99
--- NOTE | 2019-03-30 12:27 | RAD REPORT ---
EXAM DESCRIPTION: CT - Stone Protocol - 03/28/2019 4:23 am CLINICAL HISTORY: FLANK PAIN TECHNIQUE: Contiguous axial images obtained through the abdomen and pelvis without IV contrast. Rani nal and sagittal reformatted images were provided. This exam was performed according to our departmental dose-optimization program, which includes autom ated exposure control, adjustment of the mA and/or kV according to patient size and/or use of iterati ve reconstruction technique. COMPARISON: None available for comparison. FINDINGS: Lung bases: Bibasilar subsegmental atelectasis/pleural parenchymal scar. Coronary artery c alcification. Liver: Grossly unremarkable Gallbladder and biliary system: Prior cholecystectomy. Pancreas: Grossly unremarkable Spleen: Grossly unremarkable Adrenals: Unremarkable Kidneys: Horseshoe kidney. No calculi. Mild fullness of the renal collecting system and bilateral ure ters. Bowel: Moderate stool. No obstruction. No appreciable mucosal thickening. Appendix: Normal caliber appendix. No findings to suggest acute appendicitis. Urinary bladder: The urinary bladder is partially decompressed. Mild circumferential urinary bladder wall thickening. Reproductive: Unremarkable as visualized Lymph nodes: No pathologically enlarged lymph nodes. Peritoneum: No focal fluid collection. No free air. Vessels: Mild atherosclerotic disease. No abdominal aortic aneurysm. Abdominal wall: Small fat-containing umbilical hernia. Bones: Intact IMPRESSION: 1. 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 No renal, ureteral or bladder calculi. This appearance is nonspecific and could represent physiolog ic fullness. Mild perinephric stranding. This is nonspecific and may be chronic. Mild circumferential urinary bladder wall thickening which may in part be related to degree of distention. Please correlate clinically for pyelonephritis/urinary tract infection and cystitis. 2. Other findings as above. 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 The interpreting radiologist is f ully responsible for the content of the report.
== END 2019-03-28 03:41 | disposition home or self-care (01) ==
LOC: ER 23:29
DX: N39.0 Urinary tract infection, site not specified (principal); I12.9 Hypertensive chronic kidney disease with stage 1 through stage 4 chronic kidney disease, or unspecified chronic kidney disease; N18.9 Chronic kidney disease, unspecified; E11.22 Type 2 diabetes mellitus with diabetic chronic kidney disease; Z79.4 Long term (current) use of insulin; Z88.0 Allergy status to penicillin; Z88.1 Allergy status to other antibiotic agents
CPT/HCPCS: 96365; 96361; 87088; 85025; 87086; 80048; 36415; 81025; 80076; 87077; 87186; 83690; 76377; 74176; 96375; 99284; J1200; J0696; J7040; J2405 ×2; 81003; 81015

== ENCOUNTER 2020-08-10 11:26 | Emergency (ER) | payer OTHER ==
--- OUTSIDE RECORDS SUMMARY | 2020-08-10 11:30 | XMS REPORT | Continuity of Care Document ---
:1970 Author Organization [facility] t Address [address] [place] [address] Care Team Providers Name Role Phone Unavailable Unavailable Unavailable Problems This patient has no known problems. Allergies, Adverse Reactions, Alerts This patient has no known allergies or adverse reactions. Medications Ordered Filled Start Stop Current Ordering Indication Dosage Frequency Signature Comments Components Source Medication Medication Date Date Medication? Clinician (SIG) Name Name Ritu Chaney Yes Na Grant as [facility] S[facility]iman 1-23 directed [facility] Magna Magna [facility]: [facility] Achates Poweryle Yes Na Grant as [facility] Suleiman 1-23 directed [facility] Sensor Sensor 00:00: [facility] System System 00 l [facility] Citalopram Citalopram Yes Na Grant [address] [facility] Hydrobromid Hydrobromid 1-15 L [facility] - e e 00:00: [facility] 00 l [facility] Eliquis 5 Eliquis 5 Yes Na Grant one [facility] mg mg [facility] Paxil Paxil Yes Na Grant [address] [facility] in the [facility] morning [facility] Toujeo Toujeo Yes Na Grant [address] [facility] SoloStar SoloStar [facility] Gabapentin Gabapentin Yes Na Grant [address] [facility] before [facility] bedtime [facility] Ferralet 90 Ferralet 90 Yes Na Grant [address] [facility] Lisinopril Lisinopril Yes Na Grant [address] [facility] Pravastatin Pravastatin Yes Na Grant [address] [facility] Sodium Sodium [facility] Clotrimazol Clotrimazol Yes Na Grant [address] [facility] e e applicatio [facility] to [facility] affected l [facility] Out[facility] Clin[facility] Procedures This patient has no known procedures. Encounters Start End Encounter Admission Attending Care Care Encounter Source Date/Time Date/Time Type Type Clinicians Facility Department ID 2020-02-08 2020-02-08 Outpatient [facility] [id number] [facility] 2019-12-25 2019-12-25 Out[facility] [id number] [facility] 2019-11-25 2019-11-25 Out[facility] [id number] [facility] 2019-11-24 2019-11-24 Out[facility] [id number] [facility] 2019-11-12 2019-11-12 [facility] [id number] [facility] 2019-08-04 2019-08-04 [facility] [id number] [facility] 11:39:00 11:39:00 [facility] Medicine Medicine Outpati ent Clinics 2018-08-27 2018-08-27 [facility] [id number] [facility] 11:20:00 11:20:00 t dax [place] [facility] Medicine Medicine Outpati ent Clinics 2018-06-06 2018-06-06 [facility] [id number] 02:13:00 02:13:00 t Babybe s [facility] Medicine Medicine Outpati ent Clinics 2018-03-05 2018-03-05 [facility] [id number] 17:07:00 17:07:[address] Luke s - Drive [facility] Medicine Outpati ent Clinics 2018-03-05 2018-03-05 [facility] [id number] 17:03:00 17:03:[address] Lu[employer] s - Drive [facility] Medicine Outpati ent Clinics 2018-03-05 2018-03-05 [facility] [id number] 10:48:00 10:48:00 [place] [address] [employer] [facility] - Drive [facility] Medicine Outpati ent Clinics 2018-02-25 2018-02-25 [facility] [id number] 10:45:00 10:45:00 [place] [address] [place] [address] - Drive [facility] Medicine Outpati ent Clinics 2018-02-07 2018-02-07 [facility] [id number] 12:01:00 12:01:00 [place] [address] [employer] - Drive [facility] Medicine Outpati ent Clinics 2017-10-01 2017-10-01 [facility] [id number] [address] 13:45:00 13:45:00 [place] [address] - Drive [facility] Medicine Outpati ent Clinics 2017-09-26 2017-09-26 [facility] [id number] 11:12:00 11:12:00 [place] [facility] - Drive [facility] Medicine Outpati ent Clinics 2017-09-04 2017-09-04 [facility] [id number] 11:15:00 11:15:00 [place] [address] - Drive [facility] Medicine Outpati ent Clinics Results This patient has no known results.
--- NOTE | 2020-08-10 12:57 | RAD REPORT ---
EXAM DESCRIPTION: CT - Head Brain Wo Cont - 08/10/2020 12:36 pm CLINICAL HISTORY: DIZZINESS COMPARISON: Head Brain Wo Cont dated 12/31/2018 TECHNIQUE: Axial 5 mm thick images of the head were obtained without IV contrast. All CT scans are performed using dose optimization technique as appropriate and may include automated exposure control or mA/KV adjustment according to patient size. FINDINGS: No intracranial hemorrhage, mass, edema or shift of mid-line structures. No acute infarcti on changes seen. No abnormal extra-axial fluid collections. Ventricles are normal. Mastoid air cells and visualized portions of the paranasal sinuses are clear. No acute bony findings. No significant changes from comparison. IMPRESSION: Negative non-contrast CT head examination.
[2020-08-10] MEDS ORDERED: ONDANSETRON 4 MG/2 ML VIAL ONE (13:05)
[2020-08-10] MEDS ORDERED: MECLIZINE HCL 12.5 MG TAB ONE (13:05)
[2020-08-10 13:11] LABS: Absolute Lymphocytes (CBC) 1.9 K/uL (0.7-4.9); Basophils % 1.2 % (0-1.3); Hematocrit 37.4 % (36.0-45.0); MPV 9.5 fL (7.6-11.3)
[2020-08-10 13:17] LABS: Urine Blood Trace-lysed (Negative); Urine Glucose 2+ (Negative); Urine Protein 2+ (Negative); Urine pH 5.5 (5.0-7.0)
[2020-08-10 13:18] LABS: Protime INR 0.9
[2020-08-10 13:47] LABS: ALT/SGPT 22 U/L (12-78); AST/SGOT 14 U/L (15-37); Albumin 3.7 g/dL (3.4-5.0); Alkaline Phosphatase 215 U/L (45-117); BUN Blood Urea Nitrogen 23 mg/dL (7-18); Bicarbonate 30 mmol/L (21-32); Bilirubin Direct 0.1 mg/dL (0-0.2); Bilirubin Total 0.6 mg/dL (0.2-1.0); CKMB Creatine Kinase MB 1.6 ng/mL (1.0-3.6); Creatine Phosphokinase 105 U/L (26-192); Lipase 204 U/L (73-393); Magnesium 2.4 mg/dL (1.8-2.4); Potassium 4.1 mmol/L (3.5-5.1); Protein, Total 8.9 g/dL (6.4-8.2); Sodium Level 136 mmol/L (136-145); Troponin (Emerg Dept Use Only) < 0.02 ng/mL (0.0-0.045)
[2020-08-10 13:49] LABS: Glucose Level 470 mg/dL (74-106)
[2020-08-10] MEDS ORDERED: INSULIN -REGULAR HUMAN 50 UNIT/0.5 ML ML ONE (14:52)
[2020-08-10] MEDS ORDERED: NA CHLORIDE 0.9% 1,000 ML ONE (14:52)
--- NOTE | 2020-08-10 15:21 | ER ---
Nurse's Notes [facility] Name: Tyra Stewart Age: 49 yrs Sex: Female : 1970 Arrival Date: 08/10/2020 Time: 11:32 Bed 20 Private MD: Diagnosis: Dizziness and giddiness;Hyperglycemia, unspecified Presentation: 08/10 12:00 Chief complaint: Patient states: dizziness and vomiting that began this morning. Pt ss reports a hx of vertigo and states that this feels similar to before. Coronavirus screen: Client denies travel out of the [place] in the last 14 days. Ebola Screen: Patient denies exposure to infectious person. Patient denies travel to an Ebola-affected area in the 21 days before illness onset. Initial Sepsis Screen: Does the patient meet any 2 criteria? No. Patient's initial sepsis screen is negative. Does the patient have a suspected source of infection? No. Patient's initial sepsis screen is negative. Risk Assessment: Do you want to hurt yourself or someone else? Patient reports no desire to harm self or others. Onset of symptoms was August 10, 2020. 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 - Social history:: Smoking status: Patient denies any tobacco usage or history of. Screenin:17 Abuse screen: Denies threats or abuse. Denies injuries from another. Nutritional ld1 screening: No deficits noted. Tuberculosis screening: No symptoms or risk factors identified. Fall Risk None identified. Assessment: 12:17 General: Appears in no apparent distress. comfortable, Behavior is calm, cooperative, ld1 appropriate for age. Pain: Denies pain. Neuro: Level of Consciousness is awake, alert, obeys commands, Oriented to person, place, time, situation. Cardiovascular: Capillary refill < 3 seconds Patient's skin is warm and dry. Respiratory: Airway is patent Respiratory effort is even, unlabored, Respiratory pattern is regular, symmetrical. GI: Abdomen is round non-distended, Bowel sounds present X 4 quads. Reports nausea, vomiting, since this morning. : No signs and/or symptoms were reported regarding the genitourinary system. EENT: No signs and/or symptoms were reported regarding the EENT system. Derm: No signs and/or symptoms reported regarding the dermatologic system. Musculoskeletal: No signs and/or symptoms reported regarding the musculoskeletal system. 13:05 Reassessment: Patient appears in no apparent distress at this time. Patient is alert, ld1 oriented x 3, equal unlabored respirations, skin warm/dry/pink. 15:03 Reassessment: Patient appears in no apparent distress at this time. Patient is alert, ld1 oriented x 3, equal unlabored respirations, skin warm/dry/pink. Patient states feeling better. Vital Signs: 12:00 Pulse 89; Resp 16; Temp 97.0(TE); Pulse Ox 100% on R/A; Weight 78.47 kg; Height 5 ft. 4 ss in. (162.56 cm); Pain 0/10; 12:17 BP 139 / 104; Pulse 83; Resp 18; Pulse Ox 100% on R/A; ld1 12:50 BP 143 / 100 Supine; Pulse 81 MON; ld1 12:53 BP 153 / 100 Sitting; Pulse 83 MON; ld1 12:57 BP 133 / 94 Standing; Pulse 85 MON; ld1 14:00 BP 140 / 92; Pulse 84; Resp 18; Pulse Ox 100% ; ld1 15:03 BP 156 / 99; Pulse 86; Resp 18; Pulse Ox 100% on R/A; ld1 12:00 Body Mass Index 29.70 (78.47 kg, 162.56 cm) ED Course: 11:32 Patient arrived in ED. wm 11:37 Arin Mahan FNP-C is [facility]. kb 11:37 Ronan Conklin MD is Attending Physician. kb 11:51 Matt White RN is Primary Nurse. jl7 12:03 Triage completed. ss 12:04 Arm band placed on right wrist. ss 12:17 Patient has correct armband on for positive identification. Placed in gown. Bed in low ld1 position. Side rails up X2. night monitor on. Pulse ox on. NIBP on. Door closed. Noise minimized. Warm blanket given. 12:17 No provider procedures requiring assistance completed. ld1 12:34 CT Head Brain wo Cont In Process Unspecified. EDMS 12:40 Inserted saline lock: 20 gauge in left antecubital area, using aseptic technique. Blood ld1 collected. 13:18 Urine collected: clean catch specimen, cloudy. [facility] 13:18 Basic Metabolic Panel Sent. [facility] 13:18 CBC with Diff Sent. 5 14:27 Shu Meza, RN is Primary Nurse. ld1 15:33 IV discontinued, intact, bleeding controlled, No redness/swelling at site. ld1 Administered Medications: 12:45 Drug: Zofran (Ondansetron) 4 mg Route: IVP; Site: left antecubital; ld1 13:05 Follow up: Response: No adverse reaction ld1 12:45 Drug: Meclizine 25 mg Route: PO; ld1 13:05 Follow up: Response: No adverse reaction ld1 14:34 Drug: Insulin Regular Human 5 units {Co-Signature: bp (Adrian Youssef RN).} Route: IVP; ld1 Site: right antecubital; 14:35 Follow up: Response: No adverse reaction ld1 14:35 Drug: NS 0.9% 1000 ml Route: IV; Rate: 1000 ml; Site: right antecubital; ld1 14:35 Follow up: Response: No adverse reaction; IV Status: Infusion continued ld1 Outcome: 15:20 Discharge ordered by MD. velez 15:33 Discharged to home ambulatory. ld1 15:33 Condition: stable 15:33 Discharge instructions given to patient, family, Instructed on discharge instructions, follow up and referral plans. medication usage, Demonstrated understanding of instructions, follow-up care, medications. 15:34 Patient left the ED. ld1 Signatures: Dispatcher [employer] EDMS Arin Mahan FNP-C FNP-Ckb Smirch, Shelby RN RN Aysha Oconnell 5 Matt White RN RN jl7 Shu Meza, ROLAND RN 1 Talia Braden Adrian Youssef RN bp
--- NOTE | 2020-08-10 15:21 | EDPHYS ---
Physician Documentation [facility] Name: Tyra Stewart Age: 49 yrs Sex: Female : 1970 Arrival Date: 08/10/2020 Time: 11:32 Bed 20 Private MD: ED Physician Ronan Conklin HPI: 08/10 15:36 This 49 yrs old Female presents to ER via Ambulatory with complaints of kb Nausea/Vomiting. 15:36 The patient has experienced similar episodes in the past, a few times. The patient has kb not recently seen a physician. 15:36 The patient presents with dizziness. Onset: The symptoms/episode began/occurred at kb 02:00. Context: occurred at home, occurred while the patient was lying down, just prior to the episode the patient experienced no apparent symptoms. Modifying factors: The symptoms are alleviated by nothing, the symptoms are aggravated by nothing. Associated signs and symptoms: Pertinent positives: nausea. Severity of symptoms: At their worst the symptoms were mild moderate in the emergency department the symptoms are unchanged. Patient's baseline: Neuro: alert and fully oriented, Motor: no deficits, Ambulation: walks without assistance, Speech: normal. Pt reports nausea and dizziness that started at 0200. States she has had vertigo before and it feels similar to that. . 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 - Social history:: Smoking status: Patient denies any tobacco usage or history of. ROS: 15:29 Constitutional: Negative for fever, chills, and weight loss. kb 15:29 Abdomen/GI: Positive for nausea, Negative for abdominal pain, vomiting, diarrhea, constipation. 15:29 Neuro: Positive for dizziness. 15:29 All other systems are negative. Exam: 15:22 Constitutional: This is a well developed, well nourished patient who is awake, alert, kb and in no acute distress. ENT: Moist Mucous membranes Cardiovascular: Regular rate and rhythm with a normal S1 and S2. No gallops, murmurs, or rubs. No pulse deficits. Respiratory: Respirations even and unlabored. No increased work of breathing, no retractions or nasal flaring. Abdomen/GI: Soft, non-tender. No distention Skin: Warm, dry with normal turgor. Normal color. MS/ Extremity: Pulses equal, no cyanosis. Neurovascular intact. Full, normal range of motion. Neuro: Awake and alert, GCS 15, oriented to person, place, time, and situation. Moves all extremities. Normal gait. Psych: Awake, alert, with orientation to person, place and time. Behavior, mood, and affect are within normal limits. 15:22 ECG was reviewed by the Attending Physician. Vital Signs: 12:00 Pulse 89; Resp 16; Temp 97.0(TE); Pulse Ox 100% on R/A; Weight 78.47 kg; Height 5 ft. 4 ss in. (162.56 cm); Pain 0/10; 12:17 BP 139 / 104; Pulse 83; Resp 18; Pulse Ox 100% on R/A; ld1 12:50 BP 143 / 100 Supine; Pulse 81 MON; ld1 12:53 BP 153 / 100 Sitting; Pulse 83 MON; ld1 12:57 BP 133 / 94 Standing; Pulse 85 MON; ld1 14:00 BP 140 / 92; Pulse 84; Resp 18; Pulse Ox 100% ; ld1 15:03 BP 156 / 99; Pulse 86; Resp 18; Pulse Ox 100% on R/A; ld1 12:00 Body Mass Index 29.70 (78.47 kg, 162.56 cm) ss MDM: 11:46 Patient medically screened. kb 15:28 Data reviewed: vital signs, nurses notes. Data interpreted: Pulse oximetry: on room air kb is 100 %. Interpretation: normal. 15:32 Counseling: I had a detailed discussion with the patient and/or guardian regarding: the kb historical points, exam findings, and any diagnostic results supporting the discharge/admit diagnosis, lab results, radiology results, the need for outpatient follow up, a family practitioner, to return to the emergency department if symptoms worsen or persist or if there are any questions or concerns that arise at home. ED course: Pt states she feels better and wants to go home. States she will follow up with PCP and will return for worsening symptoms.. 15:35 Response to treatment: the patient's symptoms have markedly improved after treatment. kb 08/10 12:10 Order name: Basic Metabolic Panel kb 08/10 12:10 Order name: CBC with Diff kb 08/10 12:10 Order name: CPK; Complete Time: 13:54 kb 08/10 12:10 Order name: Ckmb; Complete Time: 13:54 kb 08/10 12:10 Order name: Hepatic Function; Complete Time: 13:54 kb 08/10 12:10 Order name: Lipase; Complete Time: 13:54 kb 08/10 12:10 Order name: Magnesium; Complete Time: 13:54 kb 08/10 12:10 Order name: Protime (+inr); Complete Time: 13:39 kb 08/10 12:10 Order name: Ptt, Activated; Complete Time: 13:39 kb 08/10 12:10 Order name: Troponin (emerg Dept Use Only); Complete Time: 13:54 kb 08/10 12:10 Order name: Basic Metabolic Panel; Complete Time: 13:54 EDMS 08/10 12:10 Order name: CBC with Automated Diff; Complete Time: 13:28 EDMS 08/10 13:17 Order name: Urine Dipstick-Ancillary; Complete Time: 13:28 EDMS 08/10 13:18 Order name: Urine --Ancillary (enter results) bd 08/10 12:10 Order name: CT Head Brain wo Cont; Complete Time: 13:01 kb 08/10 12:10 Order name: EKG; Complete Time: 12:10 kb 08/10 12:10 Order name: Cardiac monitoring; Complete Time: 12:20 kb 08/10 12:10 Order name: EKG - Nurse/Tech; Complete Time: 13:06 kb 08/10 12:10 Order name: IV Saline Lock; Complete Time: 13:06 kb 08/10 12:10 Order name: Labs collected and sent; Complete Time: 13:06 kb 08/10 12:10 Order name: NPO; Complete Time: 12:20 kb 08/10 12:10 Order name: O2 Per Protocol; Complete Time: 12:20 kb 08/10 12:10 Order name: O2 Sat Monitoring; Complete Time: 12:20 kb 08/10 12:10 Order name: Urine Dipstick-Ancillary (obtain specimen); Complete Time: 13:18 kb 08/10 13:19 Order name: Urine --Ancillary; Complete Time: 13:28 EDMS 08/10 15:21 Order name: Glucose, Ancillary Testing; Complete Time: 15:22 EDMS 08/10 12:17 Order name: Orthostatics; Complete Time: 13:03 kb EC:22 Rate is 83 beats/min. Rhythm is regular. QRS [place] is Normal. ME interval is normal at kb 158 msec. QRS interval is normal at 84 msec. QT interval is normal at 368 msec. Administered Medications: 12:45 Drug: Zofran (Ondansetron) 4 mg Route: IVP; Site: left antecubital; ld1 13:05 Follow up: Response: No adverse reaction ld1 12:45 Drug: Meclizine 25 mg Route: PO; ld1 13:05 Follow up: Response: No adverse reaction ld1 14:34 Drug: Insulin Regular Human 5 units {Co-Signature: bp (Adrian Youssef RN).} Route: IVP; ld1 Site: right antecubital; 14:35 Follow up: Response: No adverse reaction ld1 14:35 Drug: NS 0.9% 1000 ml Route: IV; Rate: 1000 ml; Site: right antecubital; ld1 14:35 Follow up: Response: No adverse reaction; IV Status: Infusion continued ld1 Disposition: 08/11 08:47 Co-signature as Attending Physician, Ronan Conklin MD I agree with the assessment and kdr plan of care. Disposition Summary: 08/10/20 15:20 Discharge Ordered Location: Home kb Condition: Stable kb Diagnosis - Dizziness and giddiness kb - Hyperglycemia, unspecified kb Followup: kb - With: Emergency Department - When: As needed - Reason: Worsening of condition Followup: kb - With: Private Physician - When: 2 - 3 days - Reason: Recheck today's complaints, Continuance of care, Re-evaluation by your physician Discharge Instructions: - Discharge Summary Sheet kb - Hyperglycemia, [id number] kb - Dizziness, [id number] kb Forms: - Medication Reconciliation Form kb - Thank You Letter kb - Antibiotic Education kb - Prescription Opioid Use kb Prescriptions: - Meclizine 25 mg Oral Tablet - take 1 tablet by ORAL route every 8 hours As needed; 30 tablet; Refills: 0, kb Product Selection Permitted - Zofran 4 mg Oral Tablet - take 1 tablet by ORAL route every 6 hours As needed; 20 tablet; Refills: 0, kb Product Selection Permitted Signatures: Dispatcher [employer] EDArin Prasad, ASSOCIATE MANAGER-C ASSOCIATE MANAGER-Ronan Anderson MD MD kdr Smirch, Shelby, RN RN ss Shu Meza RN RN ld1 Adrian Youssef RN bp Corrections: (The following items were deleted from the chart) 08/10 15:37 15:36 The patient presents to the emergency department with nausea, kb kb
[2020-08-10 15:45] VITALS: TEMP 97; O2SAT 100
[2020-08-10 15:53] VITALS: BP 156/99
--- NOTE | 2020-08-12 06:24 | EKG ---
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
== END 2020-08-10 15:34 | disposition home or self-care (01) ==
LOC: ER 11:26
DX: E11.65 Type 2 diabetes mellitus with hyperglycemia (principal); E11.22 Type 2 diabetes mellitus with diabetic chronic kidney disease; N18.9 Chronic kidney disease, unspecified; Z88.1 Allergy status to other antibiotic agents; Z88.8 Allergy status to other drugs, medicaments and biological substances
CPT/HCPCS: 93005; 85025; 80048; 36415; 83735; 82550; 81025; 85610; 82947; 80076; 85730; 81003; 84484; 82553; 83690; 70450; 99284; J7030; J2405

== ENCOUNTER 2022-08-15 12:55 | Emergency (ER) | payer BC, OTHER ==
--- OUTSIDE RECORDS SUMMARY | 2022-08-15 13:00 | XMS REPORT | Continuity of Care Document ---
:1970 Author Organization [facility] t Address [address] [place] [address] [place] [id number] Care Team Providers Name Role Phone LEONOR ASHFORD Primary Care Physician Unavailable Althea Grant Attending Clinician Unavailable LORNA BOLIVAR Attending Clinician Unavailable LEONOR ASHFORD Attending Clinician Unavailable DANA GENAO Attending Clinician Unavailable Doctor Unassigned, [place] Attending Clinician Unavailable [facility] Nephrology Attending Clinician Mary, Ang - Db Attending Clinician Unavailable Leonor Romeo Attending Clinician LORNA BOLIVAR Admitting Clinician Unavailable Payers Payer Name Policy Type Policy Number Effective Date Expiration Date [facility] MEDICARE PART A [id number] 2014 \T\ B 00:00:00 [facility] - [id number] 2021 OUT OF STATE 00:00:00 Problems Condition Condition Condition Status Onset Resolution Last Treating Co mments Source Name Details Category Date Date Treatment Clinician Date Encounter Encounter Disease Active Uni vers to to 07-18 ity of establish establish 00:00: [place] [id number] Medical Branch Essential Essential Disease Active Uni vers hypertensi hypertensi 07-18 it y of on on 00:: [place] [facility] Type 2 Type 2 Disease Active Univers diabetes diabetes 07-18 ity of mellitus mellitus 00:00: [place] with with 00 Medical chronic chronic Branch kidney kidney disease, disease, without without long-term long-term current current use of use of insulin, insulin, unspecifie unspecifie d CKD d CKD stage stage Diarrhea, Diarrhea, Disease Active Uni vers unspecifie unspecifie 07-18 it y of d type d type 00:00: [place] [facility] Anxiety Anxiety Disease Active Univers and and 07-18 [place] Trigger Trigger Problem Active Common finger finger [facility] [id number] Type 2 [place] [id number] diabetes Spirit mellitus - CHI with [facility] [id number] 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 insulin [facility] Legal Legal Problem Active Common blindness blindness Spir it - [facility] Anemia Anemia Problem Active Common [facility] Vitamin D Vitamin D Problem Active Com mon deficiency deficiency Sp john [facility] Diabetes Diabetes Problem Active Commo n mellitus Spirit without - CHI complicati [facility] Hyperlipid Hyperlipid Problem Active C ommon emia emia [facility] [place] Excessive Problem Active Co mmon [place] bleeding Spirit menorrhagi in [facility] a premenopau [facility] Microalbum Microalbum Problem Active C ommon inuria inuria Spirit [facility] Chronic Chronic Problem Active Common fatigue fatigue Spirit syndrome - [facility] Neuropathy Neuropathy Problem Active C ommon [facility] [id number] Moderate Problem Active 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 Spir it athy with - CHI peripheral [facility] [id number] Proliferat Problem Active C ommon [address]ell Spirit diabetic - CHI retinopath [facility] of left [facility] with type 2 diabetes mellitus, unspecifie d proliferat jewell retinopath y type Allergies, Adverse Reactions, Alerts Allergy Allergy Status Severity Reaction(s) Onset Inactive Treating Comm ents Source Name Type Date Date Clinician NO KNOWN Drug Active Univers ALLERGIE Class ity of S [facility] Social History Social Habit Start Date Stop Date Quantity Comments Source History of Common Spirit - Tobacco Use [facility] Tobacco use and 2022-07-18 2022-07-18 Smokeless tobacco Un iversity of exposure 00:00:00 00:00:00 non-user [facility] Sex Ass[birth year] At [birth year] Universit y of 00:00:00 00:00:00 [facility] Smoking Status Start Date Stop Date Source Never smoked tobacco [facility] Medications Ordered Filled Start Stop Current Ordering Indication Dosage Frequency Signature Comments Components Source Medication Medication Date Date Medication? Clinician (SIG) Name Name stephanie Yes [id number] 1{kit} 1 Kit Unive rs glucose 6-12 every 14 ity of sensor 00:00: (fourteen) [place] (FREESTYLE 00 days. Medical SULEIMAN 2 Branch SENSOR) Kit flash Yes [id number] 1{kit} 1 Kit Unive rs glucose 6-12 every 14 ity of sensor 00:00: (fourteen) [place] (FREESTYLE 00 days. Medical SULEIMAN 2 Branch SENSOR) Kit flash Yes [id number] 1{kit} 1 Kit Unive rs glucose 6-12 every 14 ity of sensor 00:00: (fourteen) [place] (FREESTYLE 00 days. Medical SULEIMAN 2 Branch SENSOR) Kit lisinopriL 2022- No 10mg Take 1 Univ ers 10 mg 07-18 tablet by ity of tablet 15:39: 00:00 mouth in [place] 43 :00 the Medical morning. Branch insulin 2022- No 60U inject 60 Univ ers glargine 07-18 Units ity of U-300 conc 15:39: 00:00 [place] (TOUJEO MAX 43 :00 skin at Medic al U-300 bedtime. Allan SOLOSTAR) 300 unit/mL (3 mL) InPn citalopram 2022- No 10mg Take 1 Univ ers 10 mg 6-07 06-07 tablet by ity of tablet 15:39: 00:00 mouth at [place] 43 :00 bedtime. Medical Branch lisinopriL 2022- No 10mg Take 1 Univ ers 10 mg 6-07 06-07 tablet by ity of tablet 15:39: 00:00 mouth in [place] 43 :00 the Medical morning. Branch insulin 2022- No 60U inject 60 Univ ers glargine 6-07 06-07 Units ity of U-300 conc 15:39: 00:00 [place] (TOUJEO MAX 43 :00 skin at Medic al U-300 bedtime. Allan SOLOSTJOSUE) 300 unit/mL (3 mL) InPn citalopram 2022- No 10mg Take 1 Univ ers 10 mg 6-07 06-07 tablet by ity of tablet 15:39: 00:00 mouth at [place] 43 :00 bedtime. Medical Branch insulin Yes [id number] 20U inject 20 U nivers glargine 6-07 Units ity of U-300 conc 00:00: [place] (TOUJEO MAX 00 skin at Medic al U-300 bedtime. Allan SOLOSTJOSUE) 300 unit/mL (3 mL) InPn lisinopriL Yes [id number] 10mg Take 1 U nivers 10 mg 6-07 tablet by ity of tablet 00:00: mouth in [place] 00 the Medical morning. Branch citalopram Yes [id number] 10mg Take 1 Univers 10 mg 6-07 tablet by ity of tablet 00:00: mouth at [place] 00 bedtime. Medical Branch insulin 0 Yes [id number] 20U inject 20 U nivers glargine 6-07 Units ity of U-300 conc 00:00: [place] (TOUJEO MAX 00 skin at Medic al U-300 bedtime. Allan SOLOSTAR) 300 unit/mL (3 mL) InPn lisinopriL Yes [id number] 10mg Take 1 U nivers 10 mg 6-07 tablet by ity of tablet 00:00: mouth in [place] 00 the Medical morning. Branch citalopram 0 Yes [id number] 10mg Take 1 Univers 10 mg 6-07 tablet by ity of tablet 00:00: mouth at [place] 00 bedtime. Medical Branch insulin 2022-0 Yes [id number] 20U inject 20 U nivers glargine 6-07 Units ity of U-300 conc 00:00: [place] (TOUJEO MAX 00 skin at Medic al U-300 bedtime. Branch SOLOSTAR) 300 unit/mL (3 mL) InPn lisinopriL 0 Yes [id number] 10mg Take 1 U nivers 10 mg 6-07 tablet by ity of tablet 00:00: mouth in [place] 00 the Medical morning. Branch citalopram 0 Yes [id number] 10mg Take 1 Univers 10 mg 6-07 tablet by ity of tablet 00:00: mouth at [place] 00 bedtime. Medical Branch insulin 2022-0 Yes [id number] 20U inject 20 U nivers glargine 6-07 Units ity of U-300 conc 00:00: [place] (TOUJEO MAX 00 skin at Medic al U-300 bedtime. Branch SOLOSTAR) 300 unit/mL (3 mL) InPn lisinopriL 0 Yes [id number] 10mg Take 1 U nivers 10 mg 6-07 tablet by ity of tablet 00:00: mouth in [place] 00 the Medical morning. Branch citalopram 0 Yes [id number] 10mg Take 1 Univers 10 mg 6-07 tablet by ity of tablet 00:00: mouth at [place] 00 bedtime. Medical Branch insulin 0 Yes [id number] 20U inject 20 U nivers glargine 6-07 Units ity of U-300 conc 00:00: [place] (TOUJEO MAX 00 skin at Medic al U-300 bedtime. Branch SOLOSTAR) 300 unit/mL (3 mL) InPn lisinopriL 0 Yes [id number] 10mg Take 1 U nivers 10 mg 6-07 tablet by ity of tablet 00:00: mouth in [place] 00 the Medical morning. Branch citalopram 2022-0 Yes [id number] 10mg Take 1 Univers 10 mg 6-07 tablet by ity of tablet 00:00: mouth at [place] 00 bedtime. Medical Branch insulin 0 Yes [id number] 20U inject 20 U nivers glargine 6-07 Units ity of U-300 conc 00:00: [place] (TOUJEO MAX 00 skin at Medic al U-300 bedtime. Branch SOLOSTAR) 300 unit/mL (3 mL) InPn lisinopriL 0 Yes [id number] 10mg Take 1 U nivers 10 mg 6-07 tablet by ity of tablet 00:00: mouth in [place] 00 the Medical morning. Branch citalopram Yes [id number] 10mg Take 1 Univers 10 mg 6-07 tablet by ity of tablet 00:00: mouth at [place] 00 bedtime. Medical Branch insulin Yes [id number] 20U inject 20 U nivers glargine 6-07 Units ity of U-300 conc 00:00: [place] (TOUJEO MAX 00 skin at Medic al U-300 bedtime. Branch SOLOSTAR) 300 unit/mL (3 mL) InPn lisinopriL Yes [id number] 10mg Take 1 U nivers 10 mg 6-07 tablet by ity of tablet 00:00: mouth in [place] the Medical morning. Branch citalopram Yes [id number] 10mg Take 1 Univers 10 mg 6-07 tablet by ity of tablet 00:00: mouth at [place] 00 bedtime. Medical Branch insulin 0 Yes [id number] 20U inject 20 U nivers glargine 6-07 Units ity of U-300 conc 00:00: [place] (TOUJEO MAX 00 skin at Medic al U-300 bedtime. Branch SOLOSTAR) 300 unit/mL (3 mL) InPn lisinopriL Yes [id number] 10mg Take 1 U nivers 10 mg 6-07 tablet by ity of tablet 00:00: mouth in [place] the Medical morning. Branch citalopram 0 Yes [id number] 10mg Take 1 Univers 10 mg 6-07 tablet by ity of tablet 00:00: mouth at [place] [address] bedtime. Medical Branch insulin 0 Yes [id number] 20U inject 20 U nivers glargine 6-07 Units ity of U-300 conc 00:00: [place] (TOUJEO MAX 00 skin at Medic al U-300 bedtime. Branch SOLOSTAR) 300 unit/mL (3 mL) InPn lisinopriL Yes [id number] 10mg Take 1 U nivers 10 mg 6-07 tablet by ity of tablet 00:00: mouth in [place] the Medical morning. Branch citalopram Yes [id number] 10mg Take 1 Univers 10 mg 6-07 tablet by ity of tablet 00:00: mouth at [place] 00 bedtime. Medical Branch insulin Yes [id number] 20U inject 20 U nivers glargine 6-07 Units ity of U-300 conc 00:00: [place] (TOU[place]O MAX 00 skin at Medic al U-300 bedtime. Branch SOLOSTAR) 300 unit/mL (3 mL) InPn lisinopriL Yes [id number] 10mg Take 1 U nivers 10 mg 6-07 tablet by ity of tablet 00:00: mouth in [place] the Medical morning. Branch citalopram Yes [id number] 10mg Take 1 Univers 10 mg 6-07 tablet by ity of tablet 00:00: mouth at [place] 00 bedtime. Medical Branch insulin Yes [id number] 20U inject 20 U nivers glargine 6-07 Units ity of U-300 conc 00:00: [place] (TOUJEO MAX 00 skin at Medic al U-300 bedtime. Branch SOLOSTAR) 300 unit/mL (3 mL) InPn lisinopriL Yes [id number] 10mg Take 1 U nivers 10 mg 6-07 tablet by ity of tablet 00:00: mouth in [place] the Medical morning. Branch citalopram Yes [id number] 10mg Take 1 Univers 10 mg 6-07 tablet by ity of tablet 00:00: mouth at [place] [address] bedtime. Medical Branch Atorvastati Atorvastati No 1{table QD Atorvastat n Calcium n Calcium 7-19 t} in Calcium 20 MG 20 MG 00:00: 20 MG 00 Atorvastati Atorvastati 0 No 1{table QD Atorvastat n Calcium n Calcium 7-19 t} in Calcium 20 MG 20 MG 00:00: 20 MG 00 FreeStyle FreeStyle 0 Yes Na [place] as Common Suleiman Suleiman 1-23 directed Spirit [place] 00:00: - CHI 00 [facility] FreeStyle FreeStyle 2018-0 Yes Na Grant as Common Suleiman Suleiman 1-23 directed Spirit Sensor Sensor 00:00: - CHI System System 00 [facility] FreeStyle FreeStyle 2018-0 No FreeStyle Suleiman Suleiman 1-23 Suleiman [place] - [place] - 00:00: [place] - 00 FreeStyle FreeStyle 2018-0 No FreeStyle Suleiman Suleiman 1-23 Suleiman [place] - [place] - 00:00: [place] - 00 FreeStyle FreeStyle 2018-0 No FreeStyle Suleiman Suleiman 1-23 Suleiman Sensor Sensor 00:00: Sensor System - System - 00 System - FreeStyle FreeStyle 0 No FreeStyle Suleiman Suleiman 1-23 Suleiman Sensor Sensor 00:00: Sensor System - System - 00 System - FreeStyle FreeStyle 0 No FreeStyle Suleiman Suleiman 1-23 Suleiman [place] - [place] - 00:00: [place] - 00 FreeStyle FreeStyle 2018-0 No FreeStyle Suleiman Suleiman 1-23 Suleiman Sensor Sensor 00:00: Sensor System - System - 00 System - Citalopram Citalopram 0 Yes Na Grant 1 tablet Common Hydrobromid Hydrobromid 1-15 S pirit e e 00:00: - CHI 00 [facility] Eliquis 5 Eliquis 5 Yes Na Grant one Co mmon mg mg [facility] Paxil Paxil Yes Na Grant 1 tablet Common in the [facility] morning [facility] Angie Valdezo Yes Na Grant 70 units Comm on SoloStar SoloStar [facility] Gabapentin Gabapentin Yes Na Grant [address] [facility] bedtime [facility] Ferralet 90 Ferralet 90 Yes Na Grant 1 tablet Common [facility] Lisinopril Lisinopril Yes Na Grant 1 tablet Common Spirit - CHI [facility] Pravastatin Pravastatin Yes Na Grant 1 tablet Common Sodium Sodium Spirit - CHI [facility] Clotrimazol Clotrimazol Yes Na Grant 1 Common e e applicatio Spirit n to - CHI affected [facility] Gabapentin Gabapentin No 2{capsu QD Gabapentin 300 MG 300 MG le_befo 300 MG re_bedt fanny} Citalopram Citalopram No 1{table QD Citalopram Hydrobromid Hydrobromid t} Hydrobromi e 10 MG e 10 MG de 10 MG Lisinopril Lisinopril No 1{table QD Lisinopril 20 MG 20 MG t} 20 MG Citalopram Citalopram No 1{table QD Citalopram Hydrobromid Hydrobromid t} Hydrobromi e 10 MG e 10 MG de 10 MG Lisinopril Lisinopril No Lisinopril 20 MG 20 MG 20 MG Eliquis 5 Eliquis 5 No Eliquis 5 mg 5 mg mg 5 mg mg 5 mg Rosuvastati Rosuvastati No 1{table QD Rosuvastat n Calcium n Calcium t} in Calcium 10 MG 10 MG 10 MG Citalopram Citalopram No 1{table QD Citalopram Hydrobromid Hydrobromid t} Hydrobromi e 10 MG e 10 MG de 10 MG Toujeo Toujeo No QD Toujeo SoloStar SoloStar SoloStar 300 UNIT/ML 300 UNIT/ML 300 UNIT/ML Eliquis 5 Eliquis 5 No Eliquis 5 mg 5 mg mg 5 mg mg 5 mg Lisinopril Lisinopril No 1{table QD Lisinopril 20 MG 20 MG t} 20 MG Gabapentin Gabapentin No 2{capsu QD Gabapentin 300 MG 300 MG le_befo 300 MG re_bedt fanny} Lisinopril Lisinopril No Lisinopril 20 MG 20 MG 20 MG Clotrimazol Clotrimazol No 1{appli BID Clotrimazo e 1 % e 1 % cation_ le 1 % to_affe cted_ar ea} Citalopram Citalopram No 1{table QD Citalopram Hydrobromid Hydrobromid t} Hydrobromi e 10 MG e 10 MG de 10 MG Clotrimazol Clotrimazol No 1{appli BID Clotrimazo e 1 % e 1 % cation_ le 1 % to_affe cted_ar ea} [place] Toujeo No QD [place] SoloStar SoloStar SoloStar 300 UNIT/ML 300 UNIT/ML 300 UNIT/ML Gabapentin Gabapentin No 2{capsu QD Gabapentin 300 MG 300 MG le_befo 300 MG re_bedt fanny} Citalopram Citalopram No 1{table QD Citalopram Hydrobromid Hydrobromid t} Hydrobromi e 10 MG e 10 MG de 10 MG Lisinopril Lisinopril No 1{table QD Lisinopril 20 MG 20 MG t} 20 MG Citalopram Citalopram No 1{table QD Citalopram Hydrobromid Hydrobromid t} Hydrobromi e 10 MG e 10 MG de 10 MG Lisinopril Lisinopril No Lisinopril 20 MG 20 MG 20 MG Eliquis 5 Eliquis 5 No Eliquis 5 mg 5 mg mg 5 mg mg 5 mg Clotrimazol Clotrimazol No 1{appli BID Clotrimazo e 1 % e 1 % cation_ le 1 % to_affe cted_ar ea} [place] No QD [place] SoloStar SoloStar SoloStar 300 UNIT/ML 300 UNIT/ML 300 UNIT/ML Immunizations Ordered Filled Immunization Date Status Comments Sourc e Immunization Name Name SARS-COV-2 COVID-19 2020-05-27 Completed Unive rsity of PFIZER VACCINE 00:00:00 [facility] SARS-COV-2 COVID-19 2020-05-27 Completed Unive rsity of PFIZER VACCINE 00:00:00 [facility] SARS-COV-2 COVID-19 2020-05-27 Completed Unive rsity of PFIZER VACCINE 00:00:00 [facility] SARS-COV-2 COVID-19 2020-05-27 Completed Unive rsity of PFIZER VACCINE 00:00:00 [facility] SARS-COV-2 COVID-19 2020-05-27 Completed Unive rsity of PFIZER VACCINE 00:00:00 [place] [facility] SARS-COV-2 COVID-19 2020-05-27 Completed Unive rsity of PFIZER VACCINE 00:00:00 [facility] Branch SARS-COV-2 COVID-19 2020-05-27 Completed Unive rsity of PFIZER VACCINE 00:00:00 [facility] Branch SARS-COV-2 COVID-19 2020-05-27 Completed Unive rsity of PFIZER VACCINE 00:00:00 [facility] Branch SARS-COV-2 COVID-19 2020-05-27 Completed Unive rsity of PFIZER VACCINE 00:00:00 [facility] Branch SARS-COV-2 COVID-19 2020-05-27 Completed Unive rsity of PFIZER VACCINE 00:00:00 [facility] Branch SARS-COV-2 COVID-19 2020-05-27 Completed Unive rsity of PFIZER VACCINE 00:00:00 [facility] Branch SARS-COV-2 COVID-19 2020-05-05 Completed Unive rsity of PFIZER VACCINE 00:00:00 [facility] Branch SARS-COV-2 COVID-19 2020-05-05 Completed Unive rsity of PFIZER VACCINE 00:00:00 [facility] Branch SARS-COV-2 COVID-19 2020-05-05 Completed Unive rsity of PFIZER VACCINE 00:00:00 [facility] Branch SARS-COV-2 COVID-19 2020-05-05 Completed Unive rsity of PFIZER VACCINE 00:00:00 [facility] Branch SARS-COV-2 COVID-19 2020-05-05 Completed Unive rsity of PFIZER VACCINE 00:00:00 [facility] Branch SARS-COV-2 COVID-19 2020-05-05 Completed Unive rsity of PFIZER VACCINE 00:00:00 [facility] Branch SARS-COV-2 COVID-19 2020-05-05 Completed Unive rsity of PFIZER VACCINE 00:00:00 [facility] Branch SARS-COV-2 COVID-19 2020-05-05 Completed Unive rsity of PFIZER VACCINE 00:00:00 [facility] Branch SARS-COV-2 COVID-19 2020-05-05 Completed Unive rsity of PFIZER VACCINE 00:00:00 [facility] Branch SARS-COV-2 COVID-19 2020-05-05 Completed Unive rsity of PFIZER VACCINE 00:00:00 [facility] SARS-COV-2 COVID-19 2020-05-05 Completed Unive rsity of PFIZER VACCINE 00:00:00 [facility] Afluria Afluria 2019-11-24 Completed [facility] - 14:21:00 [facility] Afluria [facility] 2019-11-24 Completed [facility] - 14:21:00 [facility] Afluria [facility] 2019-11-24 Completed [facility] - 14:21:[place] [facility] 2017-11-25 Completed [facility] - 12:09:00 [place] [facility] 2017-11-25 Completed [facility] - 12:09:00 [place] [facility] 2017-11-25 Completed [facility] - 12:09:00 [facility] Vital Signs Vital Name Observation Time Observation Value Comments Source Systolic blood 2022-07-18 20:23:00 134 mm[Hg] Univer sity of pressure [facility] Diastolic blood 2022-07-18 20:23:00 88 mm[Hg] Unive rsity of pressure [facility] Heart rate 2022-07-18 20:23:00 98 /min [facility] Body temperature 2022-07-18 20:23:00 36.94 [place] [facility] height 2022-07-18 20:23:00 162.6 cm [facility] Body weight 2022-07-18 20:23:00 59.421 kg [facility] BMI 2022-07-18 20:23:00 22.49 kg/m2 [facility] Oxygen saturation in 2022-07-18 20:23:00 100 /min [facility] Arterial blood by [facility] Pulse oximetry Branch height 2021-08-29 10:40:00 64.00 [in_i] [facility] weight 2021-08-29 10:40:00 146.0 [lb_av] [facility] temperature 2021-08-29 10:40:00 98.6 [degF] [facility] bmi 2021-08-29 10:40:00 25.06 kg/m2 Common [facility] oximetry 2021-08-29 10:40:00 99 % [facility] respiratory rate 2021-08-29 10:40:00 17 /min Comm on [facility] blood pressure 2021-08-29 10:40:00 129 mm[Hg] Common [facility] - systolic [facility] blood pressure 2021-08-29 10:40:00 77 mm[Hg] Common [facility] - diastolic [facility] height 2021-08-29 11:40:00 64.00 [in_i] Common [facility] weight 2021-08-29 11:40:00 146.0 [lb_av] [facility] temperature 2021-08-29 11:40:00 98.6 [degF] Common [facility] bmi 2021-08-29 11:40:00 25.06 kg/m2 [facility] oximetry 2021-08-29 11:40:00 99 % [facility] respiratory rate 2021-08-29 11:40:00 17 /min Comm on [facility] blood pressure 2021-08-29 11:40:00 129 mm[Hg] Common [facility] - systolic [facility] blood pressure 2021-08-29 11:40:00 77 mm[Hg] Common [facility] - diastolic [facility] height 2021-04-18 14:00:00 64.00 [in_i] Common S [facility] weight 2021-04-18 14:00:00 153.2 [lb_av] [facility] temperature 2021-04-18 14:00:00 97.2 [degF] [facility] bmi 2021-04-18 14:00:00 26.29 kg/m2 Common [facility] oximetry 2021-04-18 14:00:00 100 % Common S [facility] respiratory rate 2021-04-18 14:00:00 18 /min Comm on [facility] blood pressure 2021-04-18 14:00:00 190 mm[Hg] Common [facility] - systolic [facility] blood pressure 2021-04-18 14:00:00 98 mm[Hg] Common [facility] - diastolic [facility] Procedures Procedure Date / Time Performing Clinician Source Performed AUTHORIZATION TO RELEASE 2022-07-18 05:01:00 Doctor Unassigned, No [facility] PHI TO [facility] Name Medical Branch Encounters Start End Encounter Admission Attending Care Care Encounter Source Date/Time Date/Time Type Type Clinicians Facility Department ID 2021-10-06 Outpatient Grant, Na STLMLC STLMLC [id number] 2 Common 08:36:00 [facility] 2021-08-25 Outpatient Grant, Na STLMLC STLMLC [id number] 2 Common 08:32:06 [facility] 2021-05-22 Outpatient Grant, Na STLMLC STLMLC [id number] 2 Common 11:20:01 [id number] [facility] 2021-03-08 Outpatient Grant, Na STLMLC STLMLC [id number] 2 Common 12:21:04 [id number] [facility] 2021-03-08 Outpatient Grant, Na STLMLC STLMLC [id number] 2 Common 12:12:09 [id number] [facility] 2021-03-08 Outpatient Grant, Na STLMLC STLMLC [id number] 2 Common 12:07:01 [id number] [facility] 2021-03-08 Outpatient Grant, Na STLMLC STLMLC [id number] 2 Common 12:04:39 [id number] [facility] 2021-03-08 Outpatient Grant, Na STLMLC STLMLC [id number] 2 Common 11:54:42 [id number] [facility] 2021-03-08 Outpatient Grant, Na STLMLC STLMLC [id number] 2 Common 11:54:10 [id number] [facility] 2021-03-08 Outpatient Grant, Na STLMLC STLMLC [id number] 2 Common 11:28:[id number] [facility] 2020-12-12 Outpatient R KATT [facility] OPH [id number] Univers 08:36:55 LORNA kecia [facility] 2022-09-03 2022-09-03 Outpatient R DEJON [facility] [id number] Univers 10:00:00 10:00:00 LEONOR kecia [facility] 2022-08-28 2022-08-28 Outpatient R BIRGIT [facility] [id number] Univers 11:00:00 11:00:00 DANA [facility] 2022-07-26 2022-07-[address] [facility] [id number] Univers 00:00:00 00:00:00 Secure Msg Unassigned, HEALTH 350.1.13.10 ity of [place] [id number] Leonides as GIAN?BLEA [phone] Fl spring RIBERA [address] [facility] 2022-07-24 2022-07-24 Letter [facility] [id number] Univers 00:00:00 00:00:00 (Out) [facility] MULTISPEC 350.1.13.10 ity of Nephrology IALTY 4.2.7.2.686 T [facility] [phone] [facility] [place] [address] [facility] 2022-07-23 2022-07-23 Computer Forensics Technician Lab, Ang - Db [facility] 1.2.840.1 [id number] Univers 07:45:00 08:00:00 Visit Leonor Ashford [facility] [id number] ity of [place] [id number] Leonides as GIAN?BLEA [phone] Fl spring RIBERA [address] [facility] 2022-07-23 2022-07-23 Outpatient R DEJON [facility] [id number] Univers 07:45:00 07:45:00 LEONOR kecia [facility] 2022-07-20 2022-07-20 Telephone [facility] [id number] Univers 00:00:00 00:00:00 Leonor HEALTH 350.1.13.10 it y of [place] 4.2.7.2.686 Leonides as GIAN?BLEA [id number] [facility] [address] [facility] 2022-07-18 2022-07-18 Computer Forensics Technician Lab, Ang - Db [facility] 1.2.840.1 [id number] Univers 16:15:00 16:45:23 Visit Leonor Ashford 350.1.13.10 ity of [place] 4.2.7.2.686 Leonides as GIAN?BLEA [phone] [facility] 353 [facility] OFFICE [facility] 2022-07-18 2022-07-18 Outpatient R DEJON [facility] [id number] Univers 15:00:00 16:22:36 LEONOR ity of [facility] 2022-07-18 2022-07-[address] [facility] 1.2.840.114 [id number] Univers 15:00:00 16:22:[address] [facility] 350.1.13.10 it y of [place] 4.2.7.2.686 Leonides as GIAN?BLEA [id number] [address] OFFICE [facility] 2022-07-18 2022-07-18 Orders Doctor EDOUARD [id number] Univers 00:00:00 00:00:00 Only Unassigned, ARAMIS 350.1.13.10 ity of [place] [facility] [id number] Leonides as [phone] [address] 2021-08-29 2021-08-29 SUB ANNUAL STLC STLC [id number] Common 00:00:00 00:00:00 MCR Spirit WELLNESS - CHI VISIT [facility] 2021-08-29 2021-08-29 OFFICE STLMLC STLC [id number] Co mmon 00:00:00 00:00:00 VISIT EST Spir it PT LEVEL 3 - CHI [facility] 2021-04-18 2021-04-18 OFFICE STLC STLC [id number] Co mmon 00:00:00 00:00:00 VISIT Spirit ESTAB PT - CHI LEVEL 4 [facility] 2020-08-26 2020-08-26 Outpatient Vitaly BOLIVAR [facility] [id number] Univers 09:15:00 09:15:00 LORNA valdes [facility] 2020-02-08 2020-02-08 Outpatient STLMLC STLMLC [id number] Common 00:00:00 00:00:00 [facility] 2019-12-25 2019-12-25 Outpatient STLMLC STLMLC [id number] Common 00:00:00 00:00:00 [facility] 2019-11-25 2019-11-25 Outpatient STLMLC STLMLC [id number] Common 00:00:00 00:00:00 [facility] 2019-11-24 2019-11-24 Outpatient STLMLC STLMLC [id number] Common 00:00:00 00:00:00 [facility] 2019-11-12 2019-11-12 Outpatient STLMLC STLMLC [id number] Common 00:00:00 00:00:00 [facility] 2019-08-04 2019-08-04 Out[facility] [id number] Common 11:39:00 11:39:[address] [facility] [address] [facility] 2018-08-27 2018-08-27 Outpatient [facility] [id number] Common 11:20:00 11:20:00 [place] [address] [facility] 2018-06-06 2018-06-06 Outpatient [facility] [id number] Common 02:13:00 02:13:00 t [place] [address] [facility] 2018-03-05 2018-03-05 Out[facility] [id number] Common 17:07:00 17:07:00 t [place] [address] [facility] 2018-03-05 2018-03-05 Out[facility] [id number] Common 17:03:00 17:03:00 [place] [address] [facility] 2018-03-05 2018-03-05 Out[facility] [id number] Common 10:48:00 10:48:00 t [place] [address] [facility] 2018-02-25 2018-02-25 Out[facility] [id number] Common 10:45:00 10:45:00 t [place] [address] [facility] 2018-02-07 2018-02-07 Out[facility] [id number] Common 12:01:00 12:01:00 t [place] [address] [facility] 2017-10-01 2017-10-01 Out[facility] [id number] Common 13:45:00 13:45:00 t [place] [address] [facility] 2017-09-26 2017-09-26 [facility] [id number] Common 11:12:00 11:12:00 t [place] [address] [facility] 2017-09-04 2017-09-04 Out[facility] [id number] Common 11:15:00 11:15:00 [place] [address] [facility] Results This patient has no known results.
[2022-08-15 13:35] LABS: Specific Gravity 1.012 (1.005-1.030); Urine Bacteria >50 /HPF (<20); Urine Bilirubin NEGATIVE (Negative); Urine Blood 2+ (Negative); Urine Clarity Extremely Turbid (Clear); Urine Color Light-Orange (Yellow); Urine Glucose 4+ (Over) (Negative); Urine Protein 3+ (Negative); Urine RBC 21-50 /HPF (None Seen); Urine Urobilinogen Normal (Normal)
[2022-08-15 13:36] LABS: Hematocrit 35.8 % (36.0-45.0); Lymphocytes % 20.5 % (15.3-44.8); MCV 79.1 fL (80-100); MPV 8.5 fL (7.6-11.3); RBC Red Blood Cell Count 4.52 M/uL (3.86-4.86)
[2022-08-15 13:43] LABS: Protime INR 0.96
[2022-08-15] MEDS ORDERED: NA CHLORIDE 0.9% 1,000 ML ONE (13:44)
[2022-08-15] MEDS ORDERED: ACETAMINOPHEN 325 MG TABLET ONE (13:44)
--- NOTE | 2022-08-15 13:55 | RAD REPORT ---
EXAM DESCRIPTION: CT - Stone Protocol - 08/15/2022 1:33 pm CLINICAL HISTORY: Abdominal pain./flank pain/dysuria COMPARISON: 2019 TECHNIQUE: Computed axial tomography of the abdomen pelvis was obtained without oral or IV contrast. Lack of IV and oral contrast limits evaluation of solid organs, appendix, bowel, and vessels. Garcia l reformatted images were obtained and reviewed. All CT scans are performed using dose optimization technique as appropriate and may include automated exposure control or mA/KV adjustment according to patient size. FINDINGS: Horseshoe kidney. 1 millimeter calculus left sided kidney. No hydronephrosis. Ureteral susan culus is not seen. No bladder calculus. Bladder wall thickening. Tiny air bubble within the bladder The liver, spleen, pancreas and adrenals appear grossly normal Cholecystectomy. No adnexal mass There is no evidence of diverticulitis. The appendix appears normal IMPRESSION: Tiny nonobstructing renal calculus Bladder wall thickening with tiny air bubble within the bladder may indicate infection
[2022-08-15 14:00] LABS: Albumin 3.2 g/dL (3.4-5.0); Bilirubin Total 0.6 mg/dL (0.2-1.0); Protein, Total 8.2 g/dL (6.4-8.2)
[2022-08-15] MEDS ORDERED: CIPROFLOXACIN 400mg IV 400 MG/200 ML BAG IV ONE (14:22)
--- NOTE | 2022-08-15 14:53 | EDPHYS ---
Physician Documentation [facility] Name: Tyra Stewart Age: 51 yrs Sex: Female : 1970 Arrival Date: 08/15/2022 Time: 12:55 Bed 11 Private MD: ED Physician Jeovanny Granado HPI: 08/15 13:20 This 51 yrs old Female presents to ER via Ambulatory with complaints of rn Urinary Problem, Urinary Frequency, General Weakness. 13:20 The patient presents with urinary symptoms, dysuria, frequency, urgency. Onset: The rn symptoms/episode began/occurred 5 day(s) ago. Modifying factors: The symptoms are alleviated by nothing, the symptoms are aggravated by urinating. Associated signs and symptoms: Pertinent positives: dysuria, fever, Pertinent negatives: hematuria, vaginal discharge, vomiting. Severity of symptoms: At their worst the symptoms were moderate, in the emergency department the symptoms are unchanged. The patient has experienced a previous episode. The patient has not recently seen a physician. Pt reports 5 days of urinary frequency and urgency with dysuria. + subjective fever and chills. Reports generalized weakness. +nausea but no vomiting. . Historical: - Allergies: 13:14 Zosyn; ss 13:14 tazobactam; ss 13:14 Rocephin; ss 13:14 piperacillin; ss 14:51 Ciprofloxacin; cm10 - PMHx: 13:14 Diabetes - IDDM; Hypertension; kidney failure; legally blind; PE in right lung; ss - Immunization history:: Client reports receiving the 2nd dose of the Covid vaccine. - Social history:: Smoking status: Patient denies any tobacco usage or history of. - Family history:: not pertinent. - Hospitalizations: : No recent hospitalization is reported. 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 Exam: 13:20 Constitutional: This is a well developed, well nourished patient who is awake, alert, rn and in no acute distress. Ambulatory to room without difficulty. Cardiovascular: Tachycardic, regular. No pulse deficits. Respiratory: No increased work of breathing, no retractions or nasal flaring. Abdomen/GI: soft, mild suprapubic tenderness Back: No spinal tenderness. No costovertebral tenderness. Full range of motion. Skin: Warm, dry MS/ Extremity: Pulses equal, no cyanosis. Neuro: Awake and alert, GCS 15, ambulatory 15:01 ECG was reviewed by the Attending Physician. rn Vital Signs: 13:12 BP 173 / 100; Pulse 111; Resp 18; Temp 99.7(O); Pulse Ox 100% on R/A; Weight 59.42 kg; ss Height 5 ft. 4 in. ; Pain 0/10; 15:34 BP 158 / 93; Pulse 84; Resp 18; Pulse Ox 100% on R/A; Pain 0/10; cm10 13:12 Body Mass Index 22.49 (59.42 kg, 162.56 cm) ss 13:12 Pain Scale: Adult ss 15:34 Pain Scale: Adult cm10 MDM: 13:04 Patient medically screened. rn 14:51 Differential diagnosis: urinary tract infection. Data reviewed: vital signs, nurses rn notes, lab test result(s), radiologic studies, CT scan, and as a result, I will discharge patient. Counseling: I had a detailed discussion with the patient and/or guardian regarding: the historical points, exam findings, and any diagnostic results supporting the discharge/admit diagnosis, lab results, radiology results, the need for outpatient follow up, to return to the emergency department if symptoms worsen or persist or if there are any questions or concerns that arise at home. Special discussion: I discussed with the patient/guardian in detail that at this point there is no indication for admission to the hospital. It is understood, however, that if the symptoms persist or worsen the patient needs to return immediately for re-evaluation. 08/15 13:07 Order name: Urinalysis w/ reflexes; Complete Time: 14:09 rn 08/15 13:12 Order name: Blood Culture Adult (2) rn 08/15 13:12 Order name: CBC with Diff; Complete Time: 14:09 rn 08/15 13:12 Order name: CMP; Complete Time: 14:09 rn 08/15 13:12 Order name: Lactate w/ 2H reflex if indic.; Complete Time: 14:09 rn 08/15 13:12 Order name: Protime (+inr); Complete Time: 14:09 rn 08/15 13:12 Order name: Ptt, Activated; Complete Time: 14:09 rn 08/15 13:39 Order name: Urine Culture EDMS 08/15 14:05 Order name: Glucose, Ancillary Testing; Complete Time: 14:09 EDMS 08/15 13:24 Order name: CT Stone Protocol; Complete Time: 14:09 rn 08/15 13:12 Order name: EKG; Complete Time: 13:13 rn 08/15 13:12 Order name: Accucheck; Complete Time: 13:53 rn 08/15 13:12 Order name: Cardiac monitoring; Complete Time: 13:36 rn 08/15 13:12 Order name: EKG - Nurse/Tech; Complete Time: 13:36 rn 08/15 13:12 Order name: IV Saline Lock - Large Bore; Complete Time: 13:36 rn 08/15 13:12 Order name: Labs collected and sent; Complete Time: 13:36 rn 08/15 13:12 Order name: O2 Per Protocol; Complete Time: 13:36 rn 08/15 13:12 Order name: O2 Sat Monitoring; Complete Time: 13:36 rn 08/15 13:12 Order name: Vital Signs; Complete Time: 13:36 rn EC:01 Rate is 95 beats/min. Rhythm is regular. Right axis deviation noted. QRS is positive in rn lead aVF and negative in lead I. HI interval is normal. QRS interval is normal. QT interval is normal. No Q waves. T waves are Normal. No ST changes noted. Clinical impression: NSR w/ Non-specific ST/T Changes. Interpreted by me. Reviewed by me. Administered Medications: 13:48 Drug: NS 0.9% IV 1000 ml Route: IV; Rate: 1000 ml; Site: right forearm; cm10 13:48 Drug: Acetaminophen PO 650 mg Route: PO; cm10 14:23 Drug: Ciprofloxacin IVPB 400 mg Volume: 200 ml; Route: IVPB; Infused Over: 60 mins; cm10 Site: right forearm; 14:50 Follow up: Response: Adverse reaction, Physician notified; Other; Pt complaining of cm10 itching all over. Provider made aware.; IV Status: Order to discontinue infusion; IV Intake: 25ml 14:58 Drug: diphenhydrAMINE IVP 12.5 mg Route: IVP; Site: right forearm; cm10 15:08 Follow up: Response: No adverse reaction; Marked relief of symptoms cm10 14:58 Drug: Macrobid PO 100 mg Route: PO; cm10 15:08 Follow up: Response: No adverse reaction cm10 Point of Care Testing: Blood Glucose: 13:53 Blood Glucose: 363 mg/dL; cm10 Ranges: Critical Glucose Levels:Adult <50 mg/dl or >400 mg/dl <40 mg/dl or >180 mg/dl Disposition Summary: 08/15/22 14:52 Discharge Ordered Location: Home rn Problem: new rn Symptoms: have improved rn Condition: Stable rn Diagnosis - UTI/ Urinary tract infection, site not specified rn Followup: rn - With: Private Physician - When: As needed - Reason: Recheck today's complaints, Re-evaluation by your physician Discharge Instructions: - Discharge Summary Sheet rn - Dysuria rn - Urinary Tract Infection, Adult rn Forms: - Medication Reconciliation Form rn - Thank You Letter rn - Antibiotic biology intern - Prescription Opioid Use rn - [email or web address] rn - Family Work Release cm10 Prescriptions: - ondansetron 4 mg Oral Tablet,disintegrating - take 1 tablet by ORAL route every 8 hours As needed; 10 tablet; Refills: 0, rn Product Selection Permitted - Macrobid 100 mg Oral Capsule - take 1 capsule by ORAL route every 12 hours for 10 days; 20 capsule; Refills: rn 0, Product Selection Permitted Signatures: Dispatcher [employer] Jeovanny Mazariegos MD MD rn Blanchard, Shelby, RN RN ss Martinez, Clarissa RN RN cm10
--- NOTE | 2022-08-15 14:53 | ER ---
Nurse's Notes [facility] Name: Tyra Stewart Age: 51 yrs Sex: Female : 1970 Arrival Date: 08/15/2022 Time: 12:55 Bed 11 Private MD: Diagnosis: UTI/ Urinary tract infection, site not specified Presentation: 08/15 13:12 Chief complaint: Patient states: suprapubic pressure after voiding and odorous urine ss that began Saturday. Pt c/o feeling fatigued since then. Coronavirus screen: Client denies travel out of the [place] in the last 14 days. Ebola Screen: Patient denies exposure to infectious person. Patient denies travel to an Ebola-affected area in the 21 days before illness onset. Initial Sepsis Screen: Does the patient meet any 2 criteria? No. Patient's initial sepsis screen is negative. Does the patient have a suspected source of infection? No. Patient's initial sepsis screen is negative. Risk Assessment: Do you want to hurt yourself or someone else? Patient reports no desire to harm self or others. Onset of symptoms was August 10, 2022. 13:12 Method Of Arrival: Ambulatory ss 13:12 Acuity: TASHI 3 ss Historical: - Allergies: 13:14 Zosyn; ss 13:14 tazobactam; ss 13:14 Rocephin; ss 13:14 piperacillin; ss 14:51 Ciprofloxacin; cm10 - PMHx: 13:14 Diabetes - IDDM; Hypertension; kidney failure; legally blind; PE in right lung; ss - Immunization history:: Client reports receiving the 2nd dose of the Covid vaccine. - Social history:: Smoking status: Patient denies any tobacco usage or history of. - Family history:: not pertinent. - Hospitalizations: : No recent hospitalization is reported. Screenin:03 [facility] ED Fall Risk Assessment (Adult) History of falling in the last 3 months, cm10 including since admission No falls in past 3 months (0 pts) Confusion or Disorientation No (0 pts) Intoxicated or Sedated No (0 pts) Impaired Gait No (0 pts) Mobility Assist Device Used No (0 pt) Altered Elimination No (0 pt) Score/Fall Risk Level 0 - 2 = Low Risk Oriented to surroundings, Maintained a safe environment, Hourly rounding (assess needs \T\ fall precautionary measures) done. Abuse screen: Denies threats or abuse. Denies injuries from another. Nutritional screening: No deficits noted. Tuberculosis screening: No symptoms or risk factors identified. Assessment: 14:02 General: Appears in no apparent distress. comfortable, Behavior is calm, cooperative. cm10 Pain:. Neuro: No deficits noted. Level of Consciousness is awake, alert, Oriented to person, place, time, situation. Cardiovascular: No deficits noted. Capillary refill < 3 seconds. Respiratory: No deficits noted. Airway is patent Respiratory effort is even, unlabored, Respiratory pattern is regular, symmetrical. : No deficits noted. Reports burning with urination, pain with urination, urgency, urinary frequency. Derm: No deficits noted. Skin is intact, Skin is pink, warm \T\ dry. 15:34 Reassessment: No changes from previously documented assessment. Patient is alert, cm10 oriented x 3, equal unlabored respirations, skin warm/dry/pink. Patient states feeling better. Patient states symptoms have improved. Pt states that her itching has improved. Pt educated on her new allergy of Cipro.. Vital Signs: 13:12 BP 173 / 100; Pulse 111; Resp 18; Temp 99.7(O); Pulse Ox 100% on R/A; Weight 59.42 kg; ss Height 5 ft. 4 in. ; Pain 0/10; 15:34 BP 158 / 93; Pulse 84; Resp 18; Pulse Ox 100% on R/A; Pain 0/10; cm10 13:12 Body Mass Index 22.49 (59.42 kg, 162.56 cm) ss 13:12 Pain Scale: Adult ss 15:34 Pain Scale: Adult cm10 ED Course: 13:00 Patient arrived in ED. am2 13:04 Jeovanny Granado MD is Attending Physician. rn 13:06 Ana Oconnell, ROLAND is Primary Nurse. cm10 13:13 Urinalysis w/ reflexes Sent. cm10 13:14 Triage completed. ss 13:14 Arm band placed on right wrist. ss 13:22 Initial lab(s) drawn, by me, sent to lab. First set of blood cultures drawn by me. cm10 13:28 Blood Culture Adult (2) Sent. cm10 13:28 CBC with Diff Sent. cm10 13:28 CMP Sent. cm10 13:28 Lactate w/ 2H reflex if indic. Sent. cm10 13:28 Protime (+inr) Sent. cm10 13:28 Ptt, Activated Sent. cm10 13:28 Patient has correct armband on for positive identification. Bed in low position. Call cm10 light in reach. Pulse ox on. NIBP on. 13:29 Inserted saline lock: 20 gauge in right forearm, using aseptic technique. Blood cm10 collected. 13:[address] via wheelchair. cm10 13:35 CT Stone Protocol In Process Unspecified. EDMS 13:45 Second set of blood cultures drawn by me. cm10 14:03 Warm blanket given. cm10 15:34 No provider procedures requiring assistance completed. IV discontinued, intact, cm10 bleeding controlled, No redness/swelling at site. Pressure dressing applied. Administered Medications: 13:48 Drug: NS 0.9% IV 1000 ml Route: IV; Rate: 1000 ml; Site: right forearm; cm10 13:48 Drug: Acetaminophen PO 650 mg Route: PO; cm10 14:23 Drug: Ciprofloxacin IVPB 400 mg Volume: 200 ml; Route: IVPB; Infused Over: 60 mins; cm10 Site: right forearm; 14:50 Follow up: Response: Adverse reaction, Physician notified; Other; Pt complaining of cm10 itching all over. Provider made aware.; IV Status: Order to discontinue infusion; IV Intake: 25ml 14:58 Drug: diphenhydrAMINE IVP 12.5 mg Route: IVP; Site: right forearm; cm10 15:08 Follow up: Response: No adverse reaction; Marked relief of symptoms cm10 14:58 Drug: Macrobid PO 100 mg Route: PO; cm10 15:08 Follow up: Response: No adverse reaction cm10 Medication: 14:03 VIS not applicable for this client. cm10 Point of Care Testing: Blood Glucose: 13:53 Blood Glucose: 363 mg/dL; cm10 Ranges: Intake: 14:50 IV: 25ml; Total: 25ml. cm10 Outcome: 14:52 Discharge ordered by . rn 15:35 Discharged to home ambulatory, with significant other. cm10 15:35 Condition: good 15:35 Discharge instructions given to patient, significant other, Instructed on discharge instructions, follow up and referral plans. medication usage, Demonstrated understanding of instructions, follow-up care, medications, Prescriptions given X 2. 15:35 Patient left the ED. cm10 Signatures: Dispatcher [employer] EDMS Jeovanny Granado MD MD rn Blanchard, Shelby, RN RN ss Moreno, Amanda am2 Martinez, Clarissa, RN RN cm10
[2022-08-15] MEDS ORDERED: DIPHENHYDRAMINE 50 MG/ML VIAL ONE (15:01)
[2022-08-15] MEDS ORDERED: NITROFURAN MACRO 100 MG CAP PO ONE (15:02)
[2022-08-15 16:00] VITALS: TEMP 99.7; O2SAT 100
[2022-08-15 16:01] VITALS: BP 158/93
--- NOTE | 2022-08-16 12:15 | EKG ---
Test Date: 2022-08-15 Test Time: 14:01:32 Bait Maker: MB MEASUREMENT RESULTS: Intervals: Rate: 95 MA: 152 QRSD: 78 QT: 364 QTc: 457 [place]: P: 40 MA: 152 QRS: 93 T: 59 INTERPRETIVE STATEMENTS: Normal sinus rhythm Rightward axis Borderline ECG Compared to ECG 08/10/2020 12:59:02 Right-axis deviation now present Electronically Signed On 08-16-22 12:13:25 CDT by Nawaf Metzger
== END 2022-08-15 15:35 | disposition home or self-care (01) ==
LOC: ER 12:55
DX: N39.0 Urinary tract infection, site not specified (principal); N19 Unspecified kidney failure; I10 Essential (primary) hypertension; Z88.1 Allergy status to other antibiotic agents; Z88.3 Allergy status to other anti-infective agents; Z88.8 Allergy status to other drugs, medicaments and biological substances
CPT/HCPCS: 96365; 93005; 87040 ×2; 87088; 85025; 81001; 87086; 36415; 85610; 82947; 83605; 85730; 87077; 87186; 80053; 76377; 74176; 96375; 99285; J1200; J0744; J7030

== ENCOUNTER 2022-09-14 15:25 | Emergency (ER) | payer BC, OTHER ==
--- OUTSIDE RECORDS SUMMARY | 2022-09-14 15:50 | XMS REPORT | Continuity of Care Document ---
:1970 Author Organization [facility] t Address [address] [place] [address] [place] [id number] Care Team Providers Name Role Phone LEONOR ASHFORD Primary Care Physician Unavailable Althea Grant Attending Clinician Unavailable LORNA BOLIVAR Attending Clinician Unavailable SAMARIA COTTON Attending Clinician Unavailable LEONOR ASHFORD Attending Clinician Unavailable Leonor Romeo Attending Clinician Samaria Rutherford Attending Clinician Doctor Unassigned, [place] Attending Clinician Unavailable [facility] Nephrology Attending Clinician Lab, Ang - Db Attending Clinician Unavailable LORNA BOLIVAR Admitting Clinician Unavailable Payers Payer Name Policy Type Policy Number Effective Date Expiration Date S elisabet MEDICARE PART A [id number] 2014 \T\ B 00:00:00 Problems Condition Condition Condition Status Onset Resolution Last Treating Co mments Source Name Details Category Date Date Treatment Clinician Date Chronic Chronic Disease Active Univers kidney kidney 7-18 ity of disease disease 00:00: [place] 00 Medical Branch Depression Depression Disease Active 2023-0 U nivers 7-18 ity of 00:00: [place] [facility] Serous Serous Disease Active Overview: Univer s retinal retinal 08-28 Formattin ity o f detachment detachment 00:00: g of this , , 00 note Medical unspecifie unspecifie might be Branch d eye d eye different from the original. RIGHT eye Neuropathy Neuropathy Disease Active U nivers -18 ity of 00:00: [place] [facility] HTN HTN Disease Active Univers (hypertens (hypertens 07-18 it y of ion) ion) 00:00: [place] [facility] Diabetes Diabetes Disease Active Unive rs 6- ity of 00:00: [place] [facility] Encounter Encounter Disease Active Uni vers to to 07-18 ity of establish establish 00:00: [facility] care care Medical Branch Essential Essential Disease Active Uni vers hypertensi hypertensi 07-18 it y of on on 00:00: [place] [facility] Type 2 Type 2 Disease Active Univers diabetes diabetes 07-18 ity of mellitus mellitus 00:00: [place] with with 00 Medical chronic chronic Branch kidney kidney disease, disease, without without long-term long-term current current use of use of insulin, insulin, unspecifie unspecifie d CKD d CKD stage stage Diarrhea, Diarrhea, Disease Active Uni vers unspecifie unspecifie 07-18 it y of d type d type 00:00: [place] [facility] Anxiety Anxiety Disease Active Univers and and 07-18 it[place] of depression [place] [facility] Trigger Trigger Problem Active Common finger finger Spirit - [facility] [id number] Type 2 Problem [place] n [id number] diabetes Spirit mellitus - [facility] with [facility] 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 - CHI 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 [facility] Legal Legal Problem Active Common blindness blindness Spir it - [facility] Anemia Anemia Problem Active Common Spirit - [facility] Vitamin D Vitamin D Problem Active Com mon deficiency deficiency Sp john - [facility] Diabetes Diabetes Problem Active Commo n mellitus Spirit without - CHI complicati [facility] Hyperlipid Hyperlipid Problem Active C ommon emia emia Spirit - [facility] Premenopau Excessive Problem Active Co mmon bra[place] bleeding Spirit menorrhagi in - CHI a premenopau St bra[place] period [facility] Microalbum Microalbum Problem Active C dominicmon inuria inuria Spirit - [facility] Chronic Chronic Problem Active Common fatigue fatigue Spirit syndrome - [facility] [id number] Moderate Problem Active Comm on episode of Spirit recurrent - CHI major depressive [facility] disorder [facility] Center Chronic +5th digit Problem Active Comm on kidney eff Spirit disease 11/12/19*Ch - CHI stage 3 ronic kidney [facility] disease, Medical stage 3 Center Diabetic Secondary Problem Active Comm on polyneurop diabetes Spir it athy with - CHI peripheral neuropathy [facility] [id number] Proliferat Problem Active C ommon 109 jewell Spirit diabetic - CHI retinopath St y of left [facility] eye [facility] associated Center with type 2 diabetes mellitus, unspecifie d proliferat jewell retinopath y type Allergies, Adverse Reactions, Alerts Allergy Allergy Status Severity Reaction(s) Onset Inactive Treating Comm ents Source Name Type Date Date Clinician NO KNOWN Drug Active Univers ALLERGIE Class ity of S [facility] Social History Social Habit Start Date Stop Date Quantity Comments Source History of Tobacco Common Spirit - Use [facility] Gender identity Universit y [facility] Social 2022-08-28 2022-08-28 Univers ity of function 00:00:00 00:00:00 [facility] Tobacco use and 2022-07-18 2022-07-18 Smokeless Universit y of exposure 00:00:00 00:00:00 tobacco non-user [facility] Sex Assigned At [birth year] Universit y of 00:00:00 00:00:00 [facility] Smoking Status Start Date Stop Date Source Never smoked tobacco [facility] [place] Medications Ordered Filled Start Stop Current Ordering Indication Dosage Frequency Signature Comments Components Source Medication Medication Date Date Medication? Clinician (SIG) Name Name Blood-Gluco Yes [id number] Use as Univers se Sensor 7-24 directed ity (FREESTYLE 00:00: [place] SULEIMAN 3 00 Medical SENSOR) [place] Tricia Blood-Gluco Yes [id number] Use as Univers se Sensor 7-24 directed ity of (FREESTYLE 00:00: [place] SULEIMAN 3 00 Medical SENSOR) Branch Tricia Blood-Gluco 2023-0 Yes [id number] Use as Univers se Sensor 7-24 directed ity of (FREESTYLE 00:00: [place] SULEIMAN 3 00 Medical SENSOR) Branch Tricia Blood-Gluco 2023-0 Yes [id number] 1{each} inject 1 Univers se Sensor 7-24 Each under ity of (FREESTYLE 00:00: the skin Leonides as SULEIMAN 3 00 every 14 Medical SENSOR) (fourteen) . Use as directed to check blood sugar 3x a day for diagnosis E11.65 semaglutide 2023-0 Yes [id number] Start 0.25 Univers (OZEMPIC) 7-24 mg weekly ity o f 0.25 mg or 00:00: dose [place] 4 [place] 0.5 mg (2 00 weeks and Medic al mg/3 mL) then Branch PnIj progress to 0.5mg weekly injection. Blood-Gluco 2023-0 Yes [id number] 1{each} inject 1 Univers se Sensor 7-18 Each under ity of (FREESTYLE 00:00: the skin [place]ides as SULEIMAN 3 00 every 14 Medical SENSOR) (fourteen) . Use as directed to check blood sugar 3x a day for diagnosis E11.65 gabapentin 2023-0 Yes [id number] 300mg Take 1 Univers 300 mg 7-18 capsule by ity of capsule 00:00: mouth in [place] 00 the Medical morning. Branch semaglutide 2023-0 Yes [id number] Start 0.25 Univers (OZEMPIC) 7-18 mg weekly ity o f 0.25 mg or 00:00: dose for 4 [place] 0.5 mg (2 00 weeks and Medic al mg/3 mL) then Branch PnIj progress to 0.5mg weekly injection. Blood-Gluco 2023-0 Yes [id number] 1{each} inject 1 Univers se Sensor 7-18 Each under ity of (FREESTYLE 00:00: the skin [place] as SULEIMAN 3 00 every 14 Medical SENSOR) (fourteen) . Use as directed to check blood sugar 3x a day for diagnosis E11.65 gabapentin 2023-0 Yes [id number] 300mg Take 1 Univers 300 mg 7-18 capsule by ity of capsule 00:00: mouth in [place] 00 the Medical morning. Branch semaglutide 2023-0 Yes [id number] Start 0.25 Univers (OZEMPIC) 7-18 mg weekly ity o f 0.25 mg or 00:00: dose for 4 [place] 0.5 mg (2 00 weeks and Medic al mg/3 mL) then Branch PnIj progress to 0.5mg weekly injection. Blood-Gluco 2023-0 Yes [id number] 1{each} inject 1 Univers se Sensor 7-18 Each under ity of (FREESTYLE 00:00: the skin [place] as SULEIMAN 3 00 every 14 Medical SENSOR) (fourteen) Branch . Use as directed to check blood sugar 3x a day for diagnosis E11.65 gabapentin 2023-0 Yes [id number] 300mg Take 1 Univers 300 mg 7-18 capsule by ity of capsule 00:00: mouth in [place] 00 the Medical morning. Branch semaglutide 2023-0 Yes [id number] Start 0.25 Univers (OZEMPIC) 7-18 mg weekly ity o f 0.25 mg or 00:00: dose for 4 [place] 0.5 mg (2 00 weeks and Medic al mg/3 mL) then Branch PnIj progress to 0.5mg weekly injection. Blood-Gluco 3-0 Yes [id number] 1{each} inject 1 Univers se Sensor 7-18 Each under ity of (FREESTYLE 00:00: the skin [place] as SULEIMAN 3 00 every 14 Medical SENSOR) (fourteen) Branch . Use as directed to check blood sugar 3x a day for diagnosis E11.65 gabapentin 2023-0 Yes [id number] 300mg Take 1 Univers 300 mg 7-18 capsule by ity of capsule 00:00: mouth in [place] the Medical morning. Branch semaglutide 2023-0 Yes [id number] Start 0.25 Univers (OZEMPIC) 7-18 mg weekly ity o f 0.25 mg or 00:00: dose for 4 [place] 0.5 mg (2 00 weeks and Medic al mg/3 mL) then Branch PnIj progress to 0.5mg weekly injection. gabapentin 2023-0 Yes [id number] 300mg Take 1 Univers 300 mg 7-18 capsule by ity of capsule 00:00: mouth in [place] 00 the Medical morning. Branch semaglutide 2023-0 Yes [id number] Start 0.25 Univers (OZEMPIC) 7-18 mg weekly ity o f 0.25 mg or 00:00: dose for 4 [place] 0.5 mg (2 00 weeks and Medic al mg/3 mL) then Branch PnIj progress to 0.5mg weekly injection. gabapentin 2022-0 Yes [id number] 300mg Take 1 Univers 300 mg 7-18 capsule by ity of capsule 00:00: mouth in [place] 00 the Medical morning. Branch Blood-Gluco 2022-0 2023- No [id number] 1{each} inject 1 Univers se Sensor 7-18 07-24 Each under ity of (FREESTYLE 00:00: 00:[place] SULEIMAN 3 00 :00 every 14 Medical SENSOR) (fourteen) Branch . Use as directed to check blood sugar 3x a day for diagnosis E11.65 Blood-Gluco 2022-0 3- No [id number] 1{each} inject 1 Univers se Sensor -18 -24 Each under ity of (FREESTYLE 00:00: 00:00 [place] SULEIMAN 3 00 :00 every 14 Medical SENSOR) (fourteen) Branch . Use as directed to check blood sugar 3x a day for diagnosis E11.65 semaglutide 2022-0 3- No [id number] Start 0.25 Univers (OZEMPIC) 7-18 07-24 mg weekly ity of 0.25 mg or 00:00: 00:00 dose for 4 [place] 0.5 mg (2 00 :00 weeks and Medic al mg/3 mL) then Branch PnIj progress to 0.5mg weekly injection. Nitrofurant 2022-0 Yes TAKE 1 Univ ers oin&Nit. 7-05 CAPSULE BY ity o f Macrocryst 00:00: MOUTH [place] 100 mg 00 EVERY 12 Medical capsule HOURS FOR Branch 10 DAYS Nitrofurant 2022-0 Yes TAKE 1 Univ ers oin&Nit. 7-05 CAPSULE BY ity o f Macrocryst 00:00: MOUTH [place] 100 mg 00 EVERY 12 Medical capsule HOURS FOR Branch 10 DAYS Nitrofurant 2022-0 Yes TAKE 1 Univ ers oin&Nit. 7-05 CAPSULE BY ity o f Macrocryst 00:00: MOUTH [place] 100 mg 00 EVERY 12 Medical capsule HOURS FOR Branch 10 DAYS Nitrofurant 2023-0 Yes TAKE 1 Univ ers oin&Nit. 7-05 CAPSULE BY ity o f Macrocryst 00:00: MOUTH [place] 100 mg 00 EVERY 12 Medical capsule HOURS FOR Branch 10 DAYS Nitrofurant 2022-0 Yes TAKE 1 Univ ers oin&Nit. 7-05 CAPSULE BY ity o f Macrocryst 00:00: MOUTH [place] 100 mg 00 EVERY 12 Medical capsule HOURS FOR Branch 10 DAYS Nitrofurant 2022-0 Yes TAKE 1 Univ ers oin&Nit. 7-05 CAPSULE BY ity o f Macrocryst 00:00: MOUTH [place] 100 mg 00 EVERY 12 Medical capsule HOURS FOR Branch 10 DAYS flash 2022-0 Yes [id number] 1{kit} 1 Kit Unive rs glucose 6-12 every 14 ity of sensor 00:00: (fourteen) [place] (FREESTYLE 00 days. Medical SULEIMAN 2 Branch SENSOR) Kit flash 2022-0 Yes [id number] 1{kit} 1 Kit Unive rs glucose 6-12 every 14 ity of sensor 00:00: (fourteen) [place] (FREESTYLE 00 days. Medical SULEIMAN 2 Branch SENSOR) Kit flash 2022-0 Yes [id number] 1{kit} 1 Kit Unive rs glucose 6-12 every 14 ity of sensor 00:00: (fourteen) [place] (FREESTYLE 00 days. Medical SULEIMAN 2 Branch SENSOR) Kit flash 2022-0 202- No [id number] 1{kit} 1 Kit Univ ers glucose 6-12 07-18 every 14 ity of sensor 00:00: 00:[place] ([place]teen[place] (FREESTYLE 00 :00 days. Medical SULEIMAN 2 Branch SENSOR) Kit flash 2022-0 2023- No [id number] 1{kit} 1 Kit Univ ers glucose 6-12 07-18 every 14 ity of sensor 00:00: 00:00 ([place] (FREESTYLE 00 :00 days. Medical SULEIMAN 2 Branch SENSOR) Kit flash 2022-0 2023- No [id number] 1{kit} 1 Kit Univ ers glucose 6-12 07-18 every 14 ity of sensor 00:00: 00:00 ([place]teen[place] (FREESTYLE 00 :00 days. Medical SULEIMAN 2 Branch SENSOR) Kit lisinopriL 2022-0 2023- No 10mg Take 1 Univ ers 10 mg 6-07 06-07 tablet by ity of tablet 15:39: 00:00 mouth in [place] 43 :00 the Medical morning. Branch insulin 2022- No 60U inject 60 Univ ers glargine 6-07 06-07 Units ity of U-300 conc 15:39: 00:00 under the [place] (TOUJEO MAX 43 :00 skin at Medic al U-300 bedtime. Branch SOLOSTAR) 300 unit/mL (3 mL) InPn citalopram [...] :00 skin at Medic al U-300 bedtime. Branch SOLOSTAR) 300 unit/mL (3 mL) InPn citalopram 2022- No 10mg Take 1 Univ ers 10 mg 6-07 06-07 tablet by ity of tablet 15:39: 00:00 mouth at [place] 43 :00 bedtime. [facility] insulin Yes [id number] 20U inject 20 U nivers glargine 6-07 Units ity of U-300 conc 00:00: under the [place] (TOUJEO MAX 00 skin at Medic al U-300 bedtime. Branch SOLOSTAR) 300 unit/mL (3 mL) InPn lisinopriL Yes [id number] 10mg Take 1 U nivers 10 mg 6-07 tablet by ity of tablet 00:00: mouth in [place] 00 the Medical morning. Branch citalopram Yes [id number] 10mg Take 1 Univers 10 mg 6-07 tablet by ity of tablet 00:00: mouth at [place] 00 bedtime. [facility] Branch insulin Yes [id number] 20U inject 20 U nivers glargine 6-07 Units ity of U-300 conc 00:00: under the [place] (TOUJEO MAX 00 skin at Medic al U-300 bedtime. Allan SOLOSTJOSUE) 300 unit/mL (3 mL) InPn lisinopriL Yes [id number] 10mg Take 1 U nivers 10 mg 6-07 tablet by ity of tablet 00:00: mouth in [place] 00 the Medical morning. Branch citalopram Yes [id number] 10mg Take 1 Univers 10 mg 6-07 tablet by ity of tablet 00:00: mouth at [place] 00 bedtime. Medical Branch insulin Yes [id number] 20U inject 20 U nivers glargine 6-07 Units ity of U-300 conc 00:00: under the [place] (TOUJEO MAX 00 skin at Medic al U-300 bedtime. Allan SOLOSTJOSUE) 300 unit/mL (3 mL) InPn lisinopriL Yes [id number] 10mg Take 1 U nivers 10 mg 6-07 tablet by ity of tablet 00:00: mouth in [place] the Medical morning. Branch citalopram Yes [id number] 10mg Take 1 Univers 10 mg 6-07 tablet by ity of tablet 00:00: mouth at [place] 00 bedtime. Medical Branch insulin 0 Yes [id number] 20U inject 20 U nivers glargine 6-07 Units ity of U-300 conc 00:00: under the [place] (TOUJEO MAX 00 skin at Medic al U-300 bedtime. [place] SOLOSTAR) 300 unit/mL (3 mL) InPn lisinopriL Yes [id number] 10mg Take 1 U nivers 10 mg 6-07 tablet by ity of tablet 00:00: mouth in [place] 00 the Medical morning. Branch citalopram Yes [id number] 10mg Take 1 Univers 10 mg 6-07 tablet by ity of tablet 00:00: mouth at [place] 00 bedtime. Medical Branch insulin 2022-0 Yes [id number] 20U inject 20 U nivers glargine 6-07 Units ity of U-300 conc 00:00: under the [place] (TOUJEO MAX 00 skin at Medic al U-300 bedtime. Branch SOLOSTAR) 300 unit/mL (3 mL) InPn lisinopriL 2022-0 Yes [id number] 10mg Take 1 U nivers 10 mg 6-07 tablet by ity of tablet 00:00: mouth in [place] 00 the Medical morning. Branch citalopram 0 Yes [id number] 10mg Take 1 Univers 10 mg 6-07 tablet by ity of tablet 00:00: mouth at [place] 00 bedtime. Medical Branch insulin 2022-0 Yes [id number] 20U inject 20 U nivers glargine 6-07 Units ity of U-300 conc 00:00: under the [place] (TOUJEO MAX 00 skin at Medic al U-300 bedtime. Branch SOLOSTAR) 300 unit/mL (3 mL) InPn lisinopriL 0 Yes [id number] 10mg Take 1 U nivers 10 mg 6-07 tablet by ity of tablet 00:00: mouth in [place] the Medical morning. Branch citalopram 0 Yes [id number] 10mg Take 1 Univers 10 mg 6-07 tablet by ity of tablet 00:00: mouth at [place] 00 bedtime. Medical Branch insulin 2022-0 Yes [id number] 20U inject 20 U nivers glargine 6-07 Units ity of U-300 conc 00:00: under the [place] (TOUJEO MAX 00 skin at Medic al U-300 bedtime. Branch SOLOSTAR) 300 unit/mL (3 mL) InPn lisinopriL 0 Yes [id number] 10mg Take 1 U nivers 10 mg 6-07 tablet by ity of tablet 00:00: mouth in [place] 00 the Medical morning. Branch citalopram 0 Yes [id number] 10mg Take 1 Univers 10 mg 6-07 tablet by ity of tablet 00:00: mouth at [place] 00 bedtime. Medical Branch insulin 2022-0 Yes [id number] 20U inject 20 U nivers glargine 6-07 Units ity of U-300 conc 00:00: under the [place] (TOUJEO MAX 00 skin at Medic al U-300 bedtime. Branch SOLOSTAR) 300 unit/mL (3 mL) InPn lisinopriL 0 Yes [id number] 10mg Take 1 U nivers 10 mg 6-07 tablet by ity of tablet 00:00: mouth in [place] 00 the Medical morning. Branch citalopram 2022-0 Yes [id number] 10mg Take 1 Univers 10 mg 6-07 tablet by ity of tablet 00:00: mouth at [place] 00 bedtime. Medical Branch insulin 2022-0 Yes [id number] 20U inject 20 U nivers glargine 6-07 Units ity of U-300 conc 00:00: under the [place] (TOUJEO MAX 00 skin at Medic al U-300 bedtime. Branch SOLOSTAR) 300 unit/mL (3 mL) InPn lisinopriL 0 Yes [id number] 10mg Take 1 U nivers 10 mg 6-07 tablet by ity of tablet 00:00: mouth in [place] 00 the Medical morning. Branch citalopram 0 Yes [id number] 10mg Take 1 Univers 10 mg 6-07 tablet by ity of tablet 00:00: mouth at [place] 00 bedtime. Medical Branch insulin 2022-0 Yes [id number] 20U inject 20 U nivers glargine 6-07 Units ity of U-300 conc 00:00: under the [place] (TOUJEO MAX 00 skin at Medic al U-300 bedtime. Branch SOLOSTAR) 300 unit/mL (3 mL) InPn lisinopriL 2022-0 Yes [id number] 10mg Take 1 U nivers 10 mg 6-07 tablet by ity of tablet 00:00: mouth in [place] 00 the Medical morning. Branch citalopram 2022-0 Yes [id number] 10mg Take 1 Univers 10 mg 6-07 tablet by ity of tablet 00:00: mouth at [place] 00 bedtime. Medical Branch insulin 2022-0 Yes [id number] 20U inject 20 U nivers glargine 6-07 Units ity of U-300 conc 00:00: under the [place] (TOUJEO MAX 00 skin at Medic al U-300 bedtime. Branch SOLOSTAR) 300 unit/mL (3 mL) InPn lisinopriL 2022-0 Yes [id number] 10mg Take 1 U nivers 10 mg 6-07 tablet by ity of tablet 00:00: mouth in [place] 00 the Medical morning. Branch citalopram 2022-0 Yes [id number] 10mg Take 1 Univers 10 mg 6-07 tablet by ity of tablet 00:00: mouth at [place] 00 bedtime. Medical Branch insulin 2022-0 Yes [id number] 20U inject 20 U nivers glargine 6-07 Units ity of U-300 conc 00:00: under the [place] (TOUJEO MAX 00 skin at Medic al U-300 bedtime. Branch SOLOSTAR) 300 unit/mL (3 mL) InPn lisinopriL 0 Yes [id number] 10mg Take 1 U nivers 10 mg 6-07 tablet by ity of tablet 00:00: mouth in [place] the Medical morning. Branch citalopram 0 Yes [id number] 10mg Take 1 Univers 10 mg 6-07 tablet by ity of tablet 00:00: mouth at [place] [address] bedtime. Medical Branch insulin 2022-0 Yes [id number] 20U inject 20 U nivers glargine 6-07 Units ity of U-300 conc 00:00: under the [place] (TOUJEO MAX 00 skin at Medic al U-300 bedtime. Branch SOLOSTAR) 300 unit/mL (3 mL) InPn lisinopriL 0 Yes [id number] 10mg Take 1 U nivers 10 mg 6-07 tablet by ity of tablet 00:00: mouth in [place] the Medical morning. Branch citalopram 2022-0 Yes [id number] 10mg Take 1 Univers 10 mg 6-07 tablet by ity of tablet 00:00: mouth at [place] 00 bedtime. Medical Branch insulin 0 Yes [id number] 20U inject 20 U nivers glargine 6-07 Units ity of U-300 conc 00:00: under the [place] (TOUJEO MAX 00 skin at Medic al U-300 bedtime. Branch SOLOSTAR) 300 unit/mL (3 mL) InPn lisinopriL 0 Yes [id number] 10mg Take 1 U nivers 10 mg 6-07 tablet by ity of tablet 00:00: mouth in [place] 00 the Medical morning. Branch citalopram 2022-0 Yes [id number] 10mg Take 1 Univers 10 mg 6-07 tablet by ity of tablet 00:00: mouth at [place] 00 bedtime. Medical Branch insulin 2022-0 Yes [id number] 20U inject 20 U nivers glargine 6-07 Units ity of U-300 conc 00:00: under the [place] (TOUJEO MAX 00 skin at Medic al U-300 bedtime. Branch SOLOSTAR) 300 unit/mL (3 mL) InPn lisinopriL 2022-0 Yes [id number] 10mg Take 1 U nivers 10 mg 6-07 tablet by ity of tablet 00:00: mouth in [place] 00 the Medical morning. Branch citalopram 2022-0 Yes [id number] 10mg Take 1 Univers 10 mg 6-07 tablet by ity of tablet 00:00: mouth at [place] 00 bedtime. Medical Branch insulin 0 Yes [id number] 20U inject 20 U nivers glargine 6-07 Units ity of U-300 conc 00:00: under the [place] (TOUJEO MAX 00 skin at Medic al U-300 bedtime. Branch SOLOSTAR) 300 unit/mL (3 mL) InPn lisinopriL 2022-0 Yes [id number] 10mg Take 1 U nivers 10 mg 6-07 tablet by ity of tablet 00:00: mouth in [place] the Medical morning. Branch citalopram 2022-0 Yes [id number] 10mg Take 1 Univers 10 mg 6-07 tablet by ity of tablet 00:00: mouth at [place] 00 bedtime. Medical Branch insulin 2022-0 Yes [id number] 20U inject 20 U nivers glargine 6-07 Units ity of U-300 conc 00:00: under the [place] (TOUJEO MAX 00 skin at Medic al U-300 bedtime. Branch SOLOSTAR) 300 unit/mL (3 mL) InPn lisinopriL 2022-0 Yes [id number] 10mg Take 1 U nivers 10 mg 6-07 tablet by ity of tablet 00:00: mouth in [place] 00 the Medical morning. Branch citalopram 2022-0 Yes [id number] 10mg Take 1 Univers 10 mg 6-07 tablet by ity of tablet 00:00: mouth at [place] 00 bedtime. Medical Branch Atorvastati Atorvastati No 1{table QD Atorvastat n Calcium n Calcium 7-19 t} in Calcium 20 MG 20 MG 00:00: 20 MG 00 Atorvastati Atorvastati No 1{table QD Atorvastat n Calcium n Calcium 7-19 t} in Calcium 20 MG 20 MG 00:00: 20 MG 00 FreeStyle FreeStyle 2019-0 Yes Na Grant as Common Suleiman Sulemian 1-23 directed Spirit Lacey Lacey 00:00: - [facility] 00 [facility] FreeStyle FreeStyle 2018-0 Yes Na Grant as Common Suleiman Suleiman 1-23 directed Spirit Sensor Sensor 00:00: - [facility] System System 00 [facility] FreeStyle FreeStyle 2018-0 No FreeStyle Suleiman Suleiman 1-23 Suleiman Lacey - Lacey - 00:00: Lacey - 00 FreeStyle FreeStyle 2018-0 No FreeStyle Suleiman Suleiman 1-23 Suleiman Lacey - Lacey - 00:00: Lacey - 00 FreeStyle FreeStyle 2019-0 No FreeStyle Suleiman Suleiman 1-23 Suleiman Sensor Sensor 00:00: Sensor System - System - 00 System - FreeStyle FreeStyle 2019-0 No FreeStyle Suleiman Suleiman 1-23 Suleiman Sensor Sensor 00:00: Sensor System - System - 00 System - FreeStyle FreeStyle 2019-0 No FreeStyle Suleiman Suleiman 1-23 Suleiman Lacey - Lacey - 00:00: Lacey - 00 FreeStyle FreeStyle 2018-0 No FreeStyle Suleiman Suleiman 1-23 Suleiman Sensor Sensor 00:00: Sensor System - System - 00 System - Citalopram Citalopram 2019-0 Yes Na Grant 1 tablet Common Hydrobromid Hydrobromid 1-15 S pirit e e 00:00: - [facility]I 00 [facility] Clotrimazol Clotrimazol No 1{appli BID Clotrimazo e 1 % e 1 % cation_ le 1 % to_affe cted_ar ea} Toujeo Toujeo No QD Toujeo SoloStar SoloStar [...] cation_ le 1 % to_affe cted_ar ea} Toujeo Toujeo No QD Toujeo SoloStar SoloStar SoloStar 300 UNIT/ML 300 UNIT/ML 300 UNIT/ML Eliquis 5 Eliquis 5 Yes Na Grant one Co mmon mg mg [facility] Paxil Paxil Yes Na Grant 1 tablet Common in the [facility] morning [facility] Toford Toford Yes Na Grant 70 units Comm on SoloStar SoloStar [facility] Gabapentin Gabapentin Yes Na Grant 2 capsule Common before [facility] bedtime [facility] Ferralet 90 Ferralet 90 Yes Na Grant 1 tablet Common [facility] Lisinopril Lisinopril Yes Na Grant 1 tablet Common [facility] Pravastatin Pravastatin Yes Na Grant 1 tablet Common Sodium Sodium [facility] Clotrimazol Clotrimazol Yes Na Grant 1 Common e e applicatio Spirit n to - [facility]I affected [facility] Gabapentin Gabapentin No 2{capsu QD [...] MG e 10 MG de 10 MG Immunizations Ordered Filled Immunization Date Status Comments Sourc e Immunization Name Name SARS-COV-2 COVID-19 2020-05-27 Completed Unive rsity of PFIZER VACCINE 00:00:00 [facility] SARS-COV-2 COVID-19 2020-05-27 Completed Unive rsity of PFIZER VACCINE 00:00:00 [facility] SARS-COV-2 COVID-19 2020-05-27 Completed Unive rsity of PFIZER VACCINE 00:00:00 [facility] SARS-COV-2 COVID-19 2020-05-27 Completed Unive rsity of PFIZER VACCINE 00:00:00 [facility] SARS-COV-2 COVID-19 2020-05-27 Completed Unive rsity of PFIZER VACCINE 00:00:00 [facility] SARS-COV-2 COVID-19 2020-05-27 Completed Unive rsity of PFIZER VACCINE 00:00:00 [facility] SARS-COV-2 COVID-19 2020-05-27 Completed Unive rsity of PFIZER VACCINE 00:00:00 [facility] SARS-COV-2 COVID-19 2020-05-27 Completed Unive rsity of PFIZER VACCINE 00:00:00 [facility] SARS-COV-2 COVID-19 2020-05-27 Completed Unive rsity of PFIZER VACCINE 00:00:00 [facility] SARS-COV-2 COVID-19 2020-05-27 Completed Unive rsity of PFIZER VACCINE 00:00:00 [facility] SARS-COV-2 COVID-19 2020-05-27 Completed Unive rsity of PFIZER VACCINE 00:00:00 [facility] SARS-COV-2 COVID-19 2020-05-27 Completed Unive rsity of PFIZER VACCINE 00:00:00 [facility] SARS-COV-2 COVID-19 2020-05-27 Completed Unive rsity of PFIZER VACCINE 00:00:00 [facility] SARS-COV-2 COVID-19 2020-05-27 Completed Unive rsity of PFIZER VACCINE 00:00:00 [facility] SARS-COV-2 COVID-19 2020-05-27 Completed Unive rsity of PFIZER VACCINE 00:00:00 [facility] SARS-COV-2 COVID-19 2020-05-27 Completed Unive rsity of PFIZER VACCINE 00:00:00 [facility] SARS-COV-2 COVID-19 2020-05-27 Completed Unive rsity of PFIZER VACCINE 00:00:00 [facility] SARS-COV-2 COVID-19 2020-05-05 Completed Unive rsity of PFIZER VACCINE 00:00:00 [facility] SARS-COV-2 COVID-19 2020-05-05 Completed Unive rsity of PFIZER VACCINE 00:00:00 [facility] SARS-COV-2 COVID-19 2020-05-05 Completed Unive rsity of PFIZER VACCINE 00:00:00 [facility] SARS-COV-2 COVID-19 2020-05-05 Completed Unive rsity of PFIZER VACCINE 00:00:00 [facility] SARS-COV-2 COVID-19 2020-05-05 Completed Unive rsity of PFIZER VACCINE 00:00:00 [facility] SARS-COV-2 COVID-19 2020-05-05 Completed Unive rsity of PFIZER VACCINE 00:00:00 [facility] SARS-COV-2 COVID-19 2020-05-05 Completed Unive rsity of PFIZER VACCINE 00:00:00 [facility] SARS-COV-2 COVID-19 2020-05-05 Completed Unive rsity of PFIZER VACCINE 00:00:00 [facility] SARS-COV-2 COVID-19 2020-05-05 Completed Unive rsity of PFIZER VACCINE 00:00:00 [facility] SARS-COV-2 COVID-19 2020-05-05 Completed Unive rsity of PFIZER VACCINE 00:00:00 [facility] SARS-COV-2 COVID-19 2020-05-05 Completed Unive rsity of PFIZER VACCINE 00:00:00 [facility] SARS-COV-2 COVID-19 2020-05-05 Completed Unive rsity of PFIZER VACCINE 00:00:00 [facility] SARS-COV-2 COVID-19 2020-05-05 Completed Unive rsity of PFIZER VACCINE 00:00:00 [facility] SARS-COV-2 COVID-19 2020-05-05 Completed Unive rsity of PFIZER VACCINE 00:00:00 [facility] SARS-COV-2 COVID-19 2020-05-05 Completed Unive rsity of PFIZER VACCINE 00:00:00 [facility] SARS-COV-2 COVID-19 2020-05-05 Completed Unive rsity of PFIZER VACCINE 00:00:00 [facility] SARS-COV-2 COVID-19 2020-05-05 Completed Unive rsity of PFIZER VACCINE 00:00:00 [facility] Afluria Afluria 2019-11-24 Completed [facility] 14[facility] [facility] 2019-11-24 Completed [facility] 14:21:00 [facility] 2019-11-24 Completed [facility] 14:21:00 [facility] 2017-11-25 Completed [facility] 12:09:00 [facility] 2017-11-25 Completed [facility] 12:09:00 [facility] 2017-11-25 Completed [facility] 12:09:00 [facility] Vital Signs Vital Name Observation Time Observation Value Comments Source Systolic blood 2022-09-03 14:37:00 143 mm[Hg] Univer sity of pressure [facility] Diastolic blood 2022-09-03 14:37:00 84 mm[Hg] Unive rsity of [facility] Heart rate 2022-09-03 14:29:00 83 /min Universi ty of [facility] Body height 2022-09-03 14:29:00 162.6 cm Universi ty of [facility] Body weight 2022-09-03 14:29:00 61.417 kg [facility] BMI 2022-09-03 14:29:00 23.24 kg/m2 Universi ty of [facility] Oxygen saturation in 2022-09-03 14:29:00 99 /min [facility] Arterial blood by [facility] Pulse oximetry Branch Systolic blood 2022-08-28 16:17:00 147 mm[Hg] Univer sity of pressure [facility] Diastolic blood 2022-08-28 16:17:00 85 mm[Hg] Unive rsity of [facility] Heart rate 2022-08-28 16:17:00 92 /min Universi ty of [facility] Body height 2022-08-28 16:17:00 162.6 cm Universi ty of [facility] Body weight 2022-08-28 16:17:00 61.326 kg Universi ty of [facility] BMI 2022-08-28 16:17:00 23.21 kg/m2 Universi ty of [facility] Systolic blood 2022-07-18 20:23:00 134 mm[Hg] Univer sity of pressure [facility] Diastolic blood 2022-07-18 20:23:00 88 mm[Hg] Unive rsity of pressure [facility] Heart rate 2022-07-18 20:23:00 98 /min Universi ty [facility] Body temperature 2022-07-18 20:23:00 36.94 Rose Univ ersity of [facility] Body height 2022-07-18 20:23:00 162.6 cm Universi ty of [facility] Body weight 2022-07-18 20:23:00 59.421 kg Universi ty of [facility] BMI 2022-07-18 20:23:00 22.49 kg/m2 Universi [facility] Oxygen saturation in 2022-07-18 20:23:00 100 /min [facility] Arterial blood by [facility] Pulse oximetry Branch height 2021-08-29 10:40:00 64.00 [in_i] [facility] weight 2021-08-29 10:40:00 146.0 [lb_av] [facility] temperature 2021-08-29 10:40:00 98.6 [degF] [facility] bmi 2021-08-29 10:40:00 25.06 kg/m2 [facility] oximetry 2021-08-29 10:40:00 99 % [facility] respiratory rate 2021-08-29 10:40:00 17 /min Comm on [facility] blood pressure 2021-08-29 10:40:00 129 mm[Hg] Common [facility] - systolic [facility] blood pressure 2021-08-29 10:40:00 77 mm[Hg] Common [facility] - diastolic [facility] height 2021-08-29 11:40:00 64.00 [in_i] [facility] weight 2021-08-29 11:40:00 146.0 [lb_av] [facility] temperature 2021-08-29 11:40:00 98.6 [degF] [facility] bmi 2021-08-29 11:40:00 25.06 kg/m2 [facility] oximetry 2021-08-29 11:40:00 99 % Common [facility] respiratory rate 2021-08-29 11:40:00 17 /min Comm on [facility] blood pressure 2021-08-29 11:40:00 129 mm[Hg] Common [facility] - systolic [facility] blood pressure 2021-08-29 11:40:00 77 mm[Hg] Common [facility] - diastolic [facility] height 2021-04-18 14:00:00 64.00 [in_i] Common [facility] weight 2021-04-18 14:00:00 153.2 [lb_av] [facility] temperature 2021-04-18 14:00:00 97.2 [degF] [facility] bmi 2021-04-18 14:00:00 26.29 kg/m2 [facility] oximetry 2021-04-18 14:00:00 100 % [facility] respiratory rate 2021-04-18 14:00:00 18 /min Comm on [facility] blood pressure 2021-04-18 14:00:00 190 mm[Hg] Common [facility] systolic [facility] blood pressure 2021-04-18 14:00:00 98 mm[Hg] Common [facility] diastolic [facility] Procedures Procedure Date / Time Performing Clinician Source Performed AUTHORIZATION TO RELEASE 2022-07-18 05:01:00 Doctor Unassigned, No [facility] PHI TO [facility] Name Medical Branch Encounters Start End Encounter Admission Attending Care Care Encounter Source Date/Time Date/Time Type Type Clinicians Facility Department ID 2021-10-06 Outpatient Grant, Na STLMLC STLC [id number] Common 08:36:00 [facility] 2021-08-25 Outpatient Grant, Na STLMLC STLMLC [id number] 2 Common 08:32:06 [facility] 2021-05-22 Outpatient Grant, Na STLMLC STLMLC [id number] Common 11:20:01 [id number] [facility] 2021-03-08 Outpatient Grant, Na STLMLC STLMLC [id number] Common 12:21:04 [id number] [facility] 2021-03-08 Outpatient Grant, Na STLMLC STLMLC [id number] 2 Common 12:12:09 [id number] [facility] 2021-03-08 Outpatient Grant, Na STLMLC STLMLC [id number] 2 Common 12:07:01 [id number] [facility] 2021-03-08 Outpatient Grant, Na STLMLC STLMLC [id number] 2 Common 12:04:39 [id number] [facility] 2021-03-08 Outpatient Grant, Na STLMLC STLMLC [id number] 2 Common 11:54:42 [id number] [facility] 2021-03-08 Outpatient Grant, Na STLMLC STLMLC [id number] 2 Common 11:54:10 [id number] [facility] 2021-03-08 Outpatient Grant, Na STLMLC STLMLC [id number] 2 Common 11:28:46 [id number] [facility] 2020-12-12 Outpatient Vitaly BOLIVAR [facility] OPH [id number] Univers 08:36:55 LORNA valdes [facility] 2022-09-03 2022-09-03 Office Dejon [facility] [id number] Univers 10:00:00 10:00:00 Visit [facility] [id number] it y [facility] [id number] Leonides as GIAN?BLEA [phone] [address] MEDICAL OFFICE BUILDING 2022-09-03 2022-09-[address] [facility] [id number] Univers 10:00:00 09:54:13 LEONOR valdes [facility] 2022-09-03 2022-09-03 Refill Dejon [facility] [id number] Univers 00:00:00 00:00:00 [facility] [id number] it y of [place] [id number] Leonides as GIAN?BLEA [id number] [place] RIBERA [address] MEDICAL OFFICE BUILDING 2022-08-28 2022-08-28 Office Lula [facility] [id number] Univers 11:00:00 12:27:15 Visit Samaria [facility] [id number] it y of [place] [id number] Leonides as GIAN?BLEA [id number] [place] RIBERA [address] MEDICAL OFFICE BUILDING 2022-08-28 2022-08-[address] [facility] [id number] Univers 11:00:00 12:27:15 SAMARIA kecia [facility] 2022-07-26 2022-07-26 Patient Doctor [facility] [id number] Univers 00:00:00 00:00:00 Secure Msg Unassigned, [facility] [id number] ity of [place] [id number] Leonides as GIAN?BLEA [phone] [place] RIBERA [address] MEDICAL OFFICE [facility] 2022-07-24 2022-07-24 Letter Clinic, [facility] [id number] Univers 00:00:00 00:00:00 (Out) [facility] MULTISPEC [id number] ity of Nephrology IALTY [id number] [facility] [id number] [facility] AND [address] DIABETES CL[facility]IC 2022-07-23 2022-07-23 [employer], Ang - Db [facility] 1.2.840.1 [id number] Univers 07:45:00 08:00:00 Visit Dejon Leonor [facility] [id number] ity of [place] [id number] Leonides as GIAN?BLEA [id number] [place] RIBERA [address] MEDICAL OFFICE BUILDING 2022-07-23 2022-07-[address] [facility] [id number] Univers 07:45:00 07:45:00 LEONOR valdes [facility] 2022-07-20 2022-07-20 Telephone Dejon [facility] [id number] Univers 00:00:00 00:00:00 Leonor VAN [id number] it y of [place] [id number] Leonides as GIAN?BLEA [id number] [address] OFFICE [facility] 2022-07-18 2022-07-18 [employer], Ang - Db [facility] 1.2.840.1 [id number] Univers 16:15:00 16:45:23 Visit Leonor [place] [id number] ity of [place] [id number] Leonides as GIAN?BLEA [id number] [facility] [address] [facility] OFFICE [facility] 2022-07-18 2022-07-18 [facility]patient [facility] [id number] Univers 15:00:00 16:22:36 LEONOR ity [facility] 2022-07-18 2022-07-18 [facility] 1.2.840.114 [id number] Univers 15:00:00 16:22:36 Visit Leonor VAN [id number] it y of [place] [id number] Leonides as GIAN?BLEA [id number] [address] OFFICE [facility] 2022-07-18 2022-07-18 Orders Doctor EDOUARD [id number] Univers 00:00:00 00:00:00 Only Unassigned, [place] [id number] ity of [place] [facility] [id number] Leonides as [id number] [address] 2021-08-29 2021-08-29 SUB ANNUAL [facility] [id number] Common 00:00:00 00:00:00 [facility] Spirit WELLNESS - CHI VISIT [facility] 2021-08-29 2021-08-29 OFFICE [facility] [id number] Co mmon 00:00:00 00:00:00 VISIT EST Spir it PT LEVEL 3 - CHI [facility] 2021-04-18 2021-04-18 OFFICE STLMLC STLMLC [id number] Co mmon 00:00:00 00:00:[address] [facility] 4 [facility] 2020-08-26 2020-08-[address] [facility] [id number] Univers 09:15:00 09:15:00 LORNA valdes [facility] 2020-02-08 2020-02-08 Outpatient STLMLC STLMLC [id number] Common 00:00:00 00:00:00 [facility] 2019-12-25 2019-12-25 Outpatient STLMLC STLMLC [id number] Common 00:00:00 00:00:00 [facility] 2019-11-25 2019-11-25 Outpatient STLMLC STLMLC [id number] Common 00:00:00 00:00:00 [facility] 2019-11-24 2019-11-24 Outpatient STLMLC STLMLC [id number] Common 00:00:00 00:00:00 [facility] 2019-11-12 2019-11-12 Outpatient STLMLC STLMLC [id number] Common 00:00:00 00:00:00 [facility] 2019-08-04 2019-08-04 [facility] [id number] Common 11:39:00 11:39:00 t [facility] [address] Sp[address] Road [facility] 2018-08-27 2018-08-27 Outpatient [facility] [id number] Common 11:20:00 11:20:[address] [facility] 2018-06-06 2018-06-06 Out[facility] [id number] Common 02:13:00 02:13:[address] [facility] 2018-03-05 2018-03-05 [facility] [id number] Common 17:07:00 17:07:[address] [facility] 2018-03-05 2018-03-05 [facility] [id number] Common 17:03:00 17:03:[address] [facility] 2018-03-05 2018-03-05 [facility] [id number] Common 10:48:00 10:48:[address] [facility] 2018-02-25 2018-02-25 [facility] [id number] Common 10:45:00 10:45:[address] [facility] 2018-02-07 2018-02-07 [facility] [id number] Common 12:01:00 12:01:[address] [facility] 2017-10-01 2017-10-01 [facility] [id number] Common 13:45:00 13:45:[address] [facility] 2017-09-26 2017-09-26 [facility] [id number] Common 11:12:00 11:12:[address] [facility] 2017-09-04 2017-09-04 [facility] [id number] Common 11:15:00 11:15:[address] [facility] Results This patient has no known results. Notes Date/Time Note Provider Source 2022-08-28 11:00:00-00:00 Addended by: SAMARIA RUTHERFORD on: 09/03/2022 06:12 PM [facility] - Health Modules accepted: Orders
[2022-09-14] MEDS ORDERED: SMZ./TMP. 800/160 MG TABLET ONE (18:17)
[2022-09-14] MEDS ORDERED: LIDOCAINE 1% MPF 5 ML VIAL ONE (18:18)
[2022-09-14] MEDS ORDERED: HYDROCODONE/APAP 10/325 TAB ONE (18:18)
--- NOTE | 2022-09-14 18:54 | ER ---
Nurse's Notes [facility] Name: Tyra Stewart Age: 51 yrs Sex: Female : 1970 Arrival Date: 09/14/2022 Time: 15:25 Bed 10 Private MD: Diagnosis: Cutaneous abscess of buttock Presentation: 09/14 15:35 Chief complaint: Patient states: "I have Kumar in my butt cheeks. It's gotten worse mb9 since Saturday. I can't sit down and I'm in severe pain. I've been nauseous". Coronavirus screen: Vaccine status: Patient reports receiving the 2nd dose of the covid vaccine. Ebola Screen: No symptoms or risks identified at this time. Initial Sepsis Screen: Does the patient meet any 2 criteria? No. Patient's initial sepsis screen is negative. Does the patient have a suspected source of infection? No. Patient's initial sepsis screen is negative. Risk Assessment: Do you want to hurt yourself or someone else? Patient reports no desire to harm self or others. Onset of symptoms was September 14, 2022. 15:35 Method Of Arrival: Ambulatory mb9 15:35 Acuity: TASHI 4 mb9 Triage Assessment: 15:38 General: Appears in no apparent distress. Behavior is cooperative, anxious. Pain: mb9 Complains of pain in buttocks. Neuro: Boothe Agitation-Sedation Scale (RASS): 0 - Alert and Calm Level of Consciousness is awake, alert, obeys commands, Oriented to person, place, time, situation, Appropriate for age. Respiratory: Airway is patent Respiratory effort is even, unlabored, Respiratory pattern is regular, symmetrical. GI: Reports nausea. Derm: Skin is pink, warm \\T\\ dry. Musculoskeletal: Range of motion: intact in all extremities. Historical: - Allergies: 15:37 Ciprofloxacin; mb9 15:37 piperacillin; mb9 15:37 Rocephin; mb9 15:37 tazobactam; mb9 15:37 Zosyn; mb9 - Home Meds: 15:37 gabapentin Oral [Active]; lisinopril Oral [Active]; Insulin: Regular Sub-Q [Active]; mb9 - PMHx: 15:37 Diabetes - IDDM; Hypertension; kidney failure; legally blind; PE in right lung; Anxiety;mb9 - PSHx: 15:37 section; Cholecystectomy; mb9 - Immunization history:: Adult Immunizations up to date. - Social history:: Smoking status: Patient denies any tobacco usage or history of. Screenin:18 [facility] ED Fall Risk Assessment (Adult) History of falling in the last 3 months, ha1 including since admission No falls in past 3 months (0 pts) Confusion or Disorientation No (0 pts) Intoxicated or Sedated No (0 pts) Impaired Gait No (0 pts) Mobility Assist Device Used No (0 pt) Altered Elimination No (0 pt) Score/Fall Risk Level 0 - 2 = Low Risk Oriented to surroundings, Maintained a safe environment, Educated pt \\T\\ family on fall prevention, incl call for assistance when getting out of bed. Abuse screen: Denies threats or abuse. Denies injuries from another. Nutritional screening: No deficits noted. Tuberculosis screening: No symptoms or risk factors identified. Assessment: 19:16 Reassessment: Patient and/or family updated on plan of care and expected duration. Pain ha1 level reassessed. Patient is alert, oriented x 3, equal unlabored respirations, skin warm/dry/pink. 19:16 Neuro: Level of Consciousness is awake, alert, obeys commands, Oriented to person, ha1 place, time, situation. Cardiovascular: Patient's skin is warm and dry. Respiratory: Airway is patent Respiratory effort is even, unlabored, Respiratory pattern is regular, symmetrical. Derm: Wound noted gluteal cleft and buttocks. Vital Signs: 15:35 BP 115 / 79; Pulse 108; Resp 20; Temp 98.4; Pulse Ox 100% ; Weight 56.7 kg; Height 5 mb9 ft. 4 in. ; Pain 10/10; 19:17 BP 115 / 75; Pulse 100; Resp 19 S; Pulse Ox 100% on R/A; ha1 15:35 Body Mass Index 21.46 (56.70 kg, 162.56 cm) mb9 15:35 Pain Scale: Adult mb9 ED Course: 15:29 Patient arrived in ED. mg5 15:37 Triage completed. mb9 15:37 Arm band placed on. mb9 16:08 Sherry Melendez PA-C is PHCP. sb4 16:08 Ronan Conklin MD is Attending Physician. sb4 18:01 PHCP role handed off by Shrery Melendez PA-C kb 18:01 Arin Mahan FNP-C [facility] kb 18:06 Jamila Del Rosario, RN is Primary Nurse. ss 19:00 Patient has correct armband on for positive identification. Placed in gown. Bed in low ha1 position. Call light in reach. Side rails up X 1. 19:19 Provided Education on: wound care. ha1 19:19 No provider procedures requiring assistance completed. Patient did not have IV access ha1 during this emergency room visit. Administered Medications: 18:14 Drug: Trimethoprim-Sulfamethoxazole PO (160 mg-800 mg (DS) 1 tablet Route: PO; ss 19:03 Follow up: Response: No adverse reaction ss 18:14 Drug: [place] PO 10 mg-325 mg 1 tabs Route: PO; ss 19:03 Follow up: Response: No adverse reaction ss 18:45 Drug: Lidocaine Infiltration (1 %) 1 vials Volume: 5 ml; Route: Infiltration; ss 19:20 Follow up: Response: No adverse reaction ha1 Medication: 19:19 VIS not applicable for this client. ha1 Outcome: 18:54 Discharge ordered by MD. kb 19:19 Discharged to home ambulatory, with family. ha1 19:19 Condition: stable 19:19 Discharge instructions given to patient, Instructed on discharge instructions, follow up and referral plans. medication usage, Demonstrated understanding of instructions, follow-up care, medications, Prescriptions given X 1. 19:20 Patient left the ED. ha1 Signatures: Arin Mahan FNP-C [employer]-Ckb Jamila Del Rosario, RN RN Brenda Avery RN RN ha1 Sherry Melendez PA-C PA-C sb4 Vero Huang, RN RN mbKathe Sherman mg5
--- NOTE | 2022-09-14 18:54 | EDPHYS ---
Physician Documentation [facility] Name: Tyra Stewart Age: 51 yrs Sex: Female : 1970 Arrival Date: 09/14/2022 Time: 15:25 Bed 10 Private MD: ED Physician Ronan Conklin HPI: 09/14 18:06 This 51 yrs old Female presents to ER via Ambulatory with complaints of Back kb Pain, Vomiting. 18:06 The patient presents with an abscess of the right gluteus akash and gluteal cleft. kb Description: draining, erythematous, fluctuant, swollen. Onset: The symptoms/episode began/occurred 7 day(s) ago. Possible cause(s): unknown. Associated signs and symptoms: Pertinent positives: drainage, erythema, swelling. Modifying factors: the symptoms are alleviated by nothing, the symptoms are aggravated by pressure, sitting, squeezing the lesion and expressing the contents, touching. Severity of symptoms: At their worst the symptoms were moderate, in the emergency department the symptoms are unchanged. The patient has not experienced similar symptoms in the past. The patient has not recently seen a physician. Historical: - Allergies: 15:37 Ciprofloxacin; mb9 15:37 piperacillin; mb9 15:37 Rocephin; mb9 15:37 tazobactam; mb9 15:37 Zosyn; mb9 - Home Meds: 15:37 gabapentin Oral [Active]; lisinopril Oral [Active]; Insulin: Regular Sub-Q [Active]; mb9 - PMHx: 15:37 Diabetes - IDDM; Hypertension; kidney failure; legally blind; PE in right lung; Anxiety;mb9 - PSHx: 15:37 section; Cholecystectomy; mb9 - Immunization history:: Adult Immunizations up to date. - Social history:: Smoking status: Patient denies any tobacco usage or history of. ROS: 18:05 Constitutional: Negative for fever, chills, and weight loss. kb 18:05 Skin: Positive for abscess, of the gluteal cleft and right gluteus akash. 18:05 All other systems are negative. Exam: 18:05 Constitutional: This is a well developed, well nourished patient who is awake, alert, kb and in no acute distress. Head/Face: Normocephalic, atraumatic. ENT: Moist Mucous membranes Cardiovascular: Regular rate and rhythm with a normal S1 and S2. No gallops, murmurs, or rubs. No pulse deficits. Respiratory: Respirations even and unlabored. No increased work of breathing. Talking in full sentences MS/ Extremity: Pulses equal, no cyanosis. Neurovascular intact. Full, normal range of motion. Neuro: Awake and alert, GCS 15, oriented to person, place, time, and situation. Moves all extremities. Normal gait. 18:05 Skin: abscess, that is moderate sized, of the right gluteus akash and gluteal cleft, with drainage, with fluctuance, with induration. Vital Signs: 15:35 BP 115 / 79; Pulse 108; Resp 20; Temp 98.4; Pulse Ox 100% ; Weight 56.7 kg; Height 5 mb9 ft. 4 in. ; Pain 10/10; 19:17 BP 115 / 75; Pulse 100; Resp 19 S; Pulse Ox 100% on R/A; ha1 15:35 Body Mass Index 21.46 (56.70 kg, 162.56 cm) mb9 15:35 Pain Scale: Adult mb9 Procedures: 18:45 I \T\ D: Incision and drainage was performed for an abscess of the right right gluteus kb akash and gluteal cleft Prepped with Betadine, Anesthetized with 2 ml's 1% Lidocaine. Incised with #11 blade. Drained moderate amount purulent fluid. Dressing: sterile 4x4 gauze, the patient tolerated the procedure well. MDM: 16:08 Patient medically screened. sb4 18:06 Differential diagnosis: abscess, allergic reaction, cellulitis, insect bite. Data kb reviewed: vital signs, nurses notes. Counseling: I had a detailed discussion with the patient and/or guardian regarding: the historical points, exam findings, and any diagnostic results supporting the discharge/admit diagnosis, the need for outpatient follow up, a family practitioner, a general surgeon, to return to the emergency department if symptoms worsen or persist or if there are any questions or concerns that arise at home. 09/14 18:05 Order name: I\T\D Setup; Complete Time: 18:14 kb Administered Medications: 18:14 Drug: Trimethoprim-Sulfamethoxazole PO (160 mg-800 mg (DS) 1 tablet Route: PO; ss 19:03 Follow up: Response: No adverse reaction ss 18:14 Drug: [place] PO 10 mg-325 mg 1 tabs Route: PO; ss 19:03 Follow up: Response: No adverse reaction ss 18:45 Drug: Lidocaine Infiltration (1 %) 1 vials Volume: 5 ml; Route: Infiltration; ss 19:20 Follow up: Response: No adverse reaction ha1 Disposition: 20:20 Co-signature as Attending Physician, Ronan Conklin MD I agree with the assessment and kdr plan of care. Disposition Summary: 09/14/22 18:54 Discharge Ordered Location: Home kb Condition: Stable kb Diagnosis - Cutaneous abscess of buttock kb Followup: kb - With: Emergency Department - When: As needed - Reason: Worsening of condition Followup: kb - With: Private Physician - When: 2 - 3 days - Reason: Recheck today's complaints, Continuance of care, Re-evaluation by your physician Discharge Instructions: - Discharge Summary Sheet kb - Skin Abscess, [id number] kb - Incision and Drainage, Care After kb Forms: - Medication Reconciliation Form kb - Thank You Letter kb - Antibiotic Education kb - Prescription Opioid Use kb - Patient Portal Instructions kb Prescriptions: - Bactrim DS 800-160 mg Oral Tablet - take 1 tablet by ORAL route every 12 hours for 10 days; 20 tablet; Refills: 0, kb Product Selection Permitted Signatures: Arin Mahan FNP-C FNP-Ckb Rittger, Kevin, MD MD kdr Jamila Del Rosario, ROLAND RN ss Sherry Melendez PA-C PA-C sb4 Vero Huang RN RN mb9 Brenda Avery RN ha1
[2022-09-14 19:42] VITALS: TEMP 98.4; O2SAT 100
[2022-09-14 19:43] VITALS: BP 115/75
== END 2022-09-14 19:20 | disposition home or self-care (01) ==
LOC: ER 15:25
PROC: 0H98XZZ Drainage of Buttock Skin, External Approach (ICD-10-PCS; principal; 2022-09-14)
DX: L02.31 Cutaneous abscess of buttock (principal); Z88.1 Allergy status to other antibiotic agents; Z88.3 Allergy status to other anti-infective agents; Z88.8 Allergy status to other drugs, medicaments and biological substances
CPT/HCPCS: 99283; 10060; J2001

== ENCOUNTER 2023-03-08 15:09 | Inpatient (IN) | payer BC, OTHER ==
--- OUTSIDE RECORDS SUMMARY | 2023-03-08 15:14 | XMS REPORT | Continuity of Care Document ---
Author Name Unknown Address [address] [place] [address] [facility] [address] [place] [address] Care Team Providers Care Education Department Chair Name Role Phone FELY KEARNS Primary Care Physician Unavailab Althea Savage Attending Clinician Unavailable LORNA BOLIVAR Attending Clinician Unavailab crystal DOCTOR UNASSIGNED, NO NAME Attending Clinician U LEONOR Lou Attending Clinician Unavailable [email or web address] Attending Clinician UnavailLeonor Santiago Attending Clinician [phone] SAMARIA COTTON Attending Clinician Unavailable Lab, Ang - Db Attending Clinician Unavailable Samaria Rutherford Attending Clinician [phone] Doctor Unassigned, [place] Attending Clinician U [facility] Attending Clinician [phone] ABHINAV CALERO Attending Clinician Unavailab ABHINAV Christine Attending Clinician Unavailab SANDRA Ashton Attending Clinician Unavailabl LORNA Pillai Admitting Clinician Unavailab le SARKIS, GARLAND D Admitting Clinician Unavailleonel soares [email or web address]_S Admitting Clinician Unavaila LONG Headley Admitting Clinician Unavailable SANDRA REECE Admitting Clinician ABHINAV Osorio Admitting Clinician Unavailab crystal Payers Payer Name Policy Type Policy Number Effective Date Expirati on Date Source MEDICARE PART A \\T\\ B [id number] 2014 00:00:00 BCBS [facility] [id number] 2021 00:00:00 Problems Condition Name Condition Details Condition Category Status Onset Date Resolution Date Last Treatment Date Treating Clinician Comments Source Arthralgia of both hands Arthralgia of both hands Disease Active 2022-02 00:00: 00 [facility] Need for hepatitis C screening test Need for hepatitis C screening test Disease Active 2022-02 00:00: 00 [facility] Chronic kidney disease Chronic kidney disease Disease Active 08-28 00:00: 00 [facility] Depression Depression Disease Active 08-28 00:00: 00 [facility] Serous retinal detachment , unspecifie d eye Serous retinal detachment , unspecifie d eye Disease Active 08-28 00:00: 00 Overview: Formattin g of this note might be different from the original. RIGHT eye [facility] Neuropathy Neuropathy Disease Active 08-28 00:00: 00 [facility] HTN (hypertens ion) HTN (hypertens ion) Disease Active 07-18 00:00: 00 [facility] Diabetes Diabetes Disease Active 07-18 00:00: 00 [facility] Encounter to establish care Encounter to establish care Disease Active 07-18 00:00: 00 [facility] Essential hypertensi on Essential hypertensi on Disease Active 07-18 00:00: 00 [facility] Type 2 diabetes mellitus with chronic kidney disease, without long-term current use of insulin, unspecifie d CKD stage Type 2 diabetes mellitus with chronic kidney disease, without long-term current use of insulin, unspecifie d CKD stage Disease Active 07-18 00:00: 00 [facility] Diarrhea, unspecifie d type Diarrhea, unspecifie d type Disease Active 07-18 00:00: 00 [facility] Anxiety and depression Anxiety and depression Disease Active 07-18 00:00: 00 [facility] Trigger finger Trigger finger Problem Active [facility] [id number] Type 2 diabetes mellitus with hyperglyce stu Problem Active [facility] [id number] 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 Problem Active [facility] Legal blindness Legal blindness Problem Active [facility] Anemia Anemia Problem Active [facility] Vitamin D deficiency Vitamin D deficiency Problem Active [facility] Diabetes mellitus without complicati on Diabetes Problem Active [facility] Hyperlipid emia Hyperlipid emia Problem Active [facility] Premenopau braeden menorrhagi a Excessive bleeding in premenopau braeden period Problem Active [facility] Microalbum inuria Microalbum inuria Problem Active [facility] Chronic fatigue syndrome Chronic fatigue Problem Active [facility] [id number] Moderate episode of recurrent major depressive disorder Problem Active [facility] Chronic kidney disease stage 3 +5th digit eff 11/12/19*Ch ronic kidney disease, stage 3 Problem Active [facility] Diabetic polyneurop athy Secondary diabetes with peripheral neuropathy Problem Active [facility] [id number] 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, unspecifie d proliferat jewell retinopath y type Problem Active [facility] Allergies, Adverse Reactions, Alerts Allergy Name Allergy Type Status Severity Reaction(s) Onset Date Inactive Date Treating Clinician Comments Source NO KNOWN ALLERGIE S Drug Class Active [facility] Social History Social Habit Start Date Stop Date Quantity Comments Source History of Tobacco Use [facility] Gender [facility] History of Social function 2022-08-28 00:00:00 2022-08-28 00:00:00 [facility] Tobacco use and exposure 2022-07-18 00:00:00 2022-07-18 00:00:00 Smokeless tobacco non-user [facility] Sex Assigned At 1970 00:00:00 1970 00:00:00 [facility] Smoking Status Start Date Stop Date Source Never smoked tobacco [facility] Medications Ordered Medication Name Filled Medication Name Start Date Stop Date Current Medication? Ordering Clinician Indication Dosage Frequency Signature (SIG) Comments Components Source acetaminoph en (TYLENOL ARTHRITIS PAIN) 650 mg CR tablet 2022-02 00:00: 00 Yes [id number] 650mg Take 1 tablet by mouth every 8 (eight) hours as needed for Pain. [facility] acetaminoph en (TYLENOL ARTHRITIS PAIN) 650 mg CR tablet 2022-02 00:00: 00 Yes [id number] 650mg Take 1 tablet by mouth every 8 (eight) hours as needed for Pain. [facility] acetaminoph en (TYLENOL ARTHRITIS PAIN) 650 mg CR tablet 2022-02 00:00: 00 Yes [id number] 650mg Take 1 tablet by mouth every 8 (eight) hours as needed for Pain. [facility] lisinopriL 10 mg tablet 2022-02 00:00: 00 Yes [id number] 10mg Take 1 tablet by mouth in the morning. [facility] lisinopriL 10 mg tablet 2022-02 00:00: 00 Yes [id number] 10mg Take 1 tablet by mouth in the morning. [facility] lisinopriL 10 mg tablet 2022-02 00:00: 00 Yes [id number] 10mg Take 1 tablet by mouth in the morning. [facility] lisinopriL 10 mg tablet 2022-02 00:00: 00 Yes [id number] 10mg Take 1 tablet by mouth in the morning. [facility] lisinopriL 10 mg tablet 2022-02 0 00:00: 00 Yes [id number] 10mg Take 1 tablet by mouth in the morning. [facility] lisinopriL 10 mg tablet 2022-02 00:00: 00 Yes [id number] 10mg Take 1 tablet by mouth in the morning. [facility] lisinopriL 10 mg tablet 2022-02 0 00:00: 00 Yes [id number] 10mg Take 1 tablet by mouth in the morning. [facility] ibuprofen 600 mg tablet 2022-02 0 00:00: 00 11-19 00:00 :00 No [id number] 600mg Take 1 tablet by mouth every 6 (six) hours as needed for Temp > 38.5 C for up to 14 days. [facility] ibuprofen 600 mg tablet 2022-02 00:00: 00 11-19 00:00 :00 No [id number] 600mg Take 1 tablet by mouth every 6 (six) hours as needed for Temp > 38.5 C for up to 14 days. [facility] flash glucose sensor (FREESTYLE SULEIMAN 2 SENSOR) Kit 09-20 00:00: 00 Yes [id number] 1{each} inject 1 Each under the skin every 14 (fourteen) days. Use as directed to check blood sugar 3x a day for diagnosis E11.65 [facility] flash glucose sensor (FREESTYLE SULEIMAN 2 SENSOR) Kit 09-20 00:00: 00 Yes [id number] 1{each} inject 1 Each under the skin every 14 (fourteen) days. Use as directed to check blood sugar 3x a day for diagnosis E11.65 [facility] flash glucose sensor (FREESTYLE SULEIMAN 2 SENSOR) Kit 09-20 00:00: 00 Yes [id number] 1{each} inject 1 Each under the skin every 14 (fourteen) days. Use as directed to check blood sugar 3x a day for diagnosis E11.65 [facility] flash glucose sensor (FREESTYLE SULEIMAN 2 SENSOR) Kit 2023-0 8-10 00:00: 00 Yes [id number] 1{each} inject 1 Each under the skin every 14 (fourteen) days. Use as directed to check blood sugar 3x a day for diagnosis E11.65 [facility] flash glucose sensor (FREESTYLE SULEIMAN 2 SENSOR) Kit 8-10 00:00: 00 Yes [id number] 1{each} inject 1 Each under the skin every 14 (fourteen) days. Use as directed to check blood sugar 3x a day for diagnosis E11.65 [facility] flash glucose sensor (FREESTYLE SULEIMAN 2 SENSOR) Kit 8-10 00:00: 00 Yes [id number] 1{each} inject 1 Each under the skin every 14 (fourteen) days. Use as directed to check blood sugar 3x a day for diagnosis E11.65 [facility] flash glucose sensor (FREESTYLE SULEIMAN 2 SENSOR) Kit 8-10 00:00: 00 Yes [id number] 1{each} inject 1 Each under the skin every 14 (fourteen) days. Use as directed to check blood sugar 3x a day for diagnosis E11.65 [facility] flash glucose sensor (FREESTYLE SULEIMAN 2 SENSOR) Kit 8-10 00:00: 00 Yes [id number] 1{each} inject 1 Each under the skin every 14 (fourteen) days. Use as directed to check blood sugar 3x a day for diagnosis E11.65 [facility] flash glucose sensor (FREESTYLE SULEIMAN 2 SENSOR) Kit 8-10 00:00: 00 Yes [id number] 1{each} inject 1 Each under the skin every 14 (fourteen) days. Use as directed to check blood sugar 3x a day for diagnosis E11.65 [facility] flash glucose sensor (FREESTYLE SULEIMAN 2 SENSOR) Kit 8-10 00:00: 00 Yes [id number] 1{each} inject 1 Each under the skin every 14 (fourteen) days. Use as directed to check blood sugar 3x a day for diagnosis E11.65 [facility] Blood-Gluco se Sensor (FREESTYLE SULEIMAN 3 SENSOR) Tricia 7-24 00:00: 00 Yes [id number] Use as directed [facility] Blood-Gluco se Sensor (FREESTYLE SULEIMAN 3 SENSOR) Tricia 09-03 00:00: 00 Yes [id number] Use as directed [facility] Blood-Gluco se Sensor (FREESTYLE SULEIMAN 3 SENSOR) 09-03 00:00: 00 Yes [id number] Use as directed [facility] Blood-Gluco se Sensor (FREESTYLE SULEIMAN 3 SENSOR) 09-03 00:00: 00 Yes [id number] 1{each} inject 1 Each under the skin every 14 (fourteen) days. Use as directed to check blood sugar 3x a day for diagnosis E11.65 [facility] semaglutide (OZEMPIC) 0.25 mg or 0.5 mg (2 mg/3 mL) Pn 09-03 00:00: 00 Yes [id number] Start 0.25 mg weekly dose for 4 weeks and then progress to 0.5mg weekly injection. [facility] semaglutide (OZEMPIC) 0.25 mg or 0.5 mg (2 mg/3 mL) PnIj 09-03 00:00: 00 Yes [id number] Start 0.25 mg weekly dose for 4 weeks and then progress to 0.5mg weekly injection. [facility] semaglutide (OZEMPIC) 0.25 mg or 0.5 mg (2 mg/3 mL) PnIj 09-03 00:00: 00 Yes [id number] Start 0.25 mg weekly dose for 4 weeks and then progress to 0.5mg weekly injection. [facility] Blood-Gluco se Sensor (FREESTYLE SULEIMAN 3 SENSOR) 09-03 00:00: 00 Yes [id number] Use as directed [facility] Blood-Gluco se Sensor (FREESTYLE SULEIMAN 3 SENSOR) 09-03 00:00: 00 Yes [id number] 1{each} inject 1 Each under the skin every 14 (fourteen) days. Use as directed to check blood sugar 3x a day for diagnosis E11.65 [facility] sem[facility] (OZEMPIC) 0.25 mg or 0.5 mg (2 mg/3 mL) PnIj 09-03 00:00: 00 Yes [id number] Start 0.25 mg weekly dose for 4 weeks and then progress to 0.5mg weekly injection. [facility] Blood-Gluco se Sensor (FREESTYLE SULEIMAN 3 SENSOR) Tricia 09-03 00:00: 00 Yes [id number] Use as directed [facility] Blood-Gluco se Sensor (FREESTYLE SULEIMAN 3 SENSOR) 09-03 00:00: 00 Yes [id number] 1{each} inject 1 Each under the skin every 14 (fourteen) days. Use as directed to check blood sugar 3x a day for diagnosis E11.65 [facility] semaglutide (OZEMPIC) 0.25 mg or 0.5 mg (2 mg/3 mL) PnIj 09-03 00:00: 00 Yes [id number] Start 0.25 mg weekly dose for 4 weeks and then progress to 0.5mg weekly injection. [facility] Blood-Gluco se Sensor (FREESTYLE SULEIMAN 3 SENSOR) Tricia 09-03 00:00: 00 Yes [id number] Use as directed [facility] Blood-Gluco se Sensor (FREESTYLE SULEIMAN 3 SENSOR) 09-03 00:00: 00 Yes [id number] 1{each} inject 1 Each under the skin every 14 (fourteen) days. Use as directed to check blood sugar 3x a day for diagnosis E11.65 [facility] semaglutide (OZEMPIC) 0.25 mg or 0.5 mg (2 mg/3 mL) PnIj 09-03 00:00: 00 Yes [id number] Start 0.25 mg weekly dose for 4 weeks and then progress to 0.5mg weekly injection. [facility] Blood-Gluco se Sensor (FREESTYLE SULEIMAN 3 SENSOR) Tricia 09-03 00:00: 00 Yes [id number] Use as directed [facility] Blood-Gluco se Sensor (FREESTYLE SULEIMAN 3 SENSOR) Tricia 09-03 00:00: 00 Yes [id number] 1{each} inject 1 Each under the skin every 14 (fourteen) days. Use as directed to check blood sugar 3x a day for diagnosis E11.65 [facility] semaglutide (OZEMPIC) 0.25 mg or 0.5 mg (2 mg/3 mL) PnIj 09-03 00:00: 00 Yes [id number] Start 0.25 mg weekly dose for 4 weeks and then progress to 0.5mg weekly injection. [facility] Blood-Gluco se Sensor (FREESTYLE SULEIMAN 3 SENSOR) Tricia 09-03 00:00: 00 Yes [id number] Use as directed [facility] Blood-Gluco se Sensor (FREESTYLE SULEIMAN 3 SENSOR) 09-03 00:00: 00 Yes [id number] 1{each} inject 1 Each under the skin every 14 (fourteen) days. Use as directed to check blood sugar 3x a day for diagnosis E11.65 [facility] semaglutide (OZEMPIC) 0.25 mg or 0.5 mg (2 mg/3 mL) PnIj 09-03 00:00: 00 Yes [id number] Start 0.25 mg weekly dose for 4 weeks and then progress to 0.5mg weekly injection. [facility] Blood-Gluco se Sensor (FREESTYLE SULEIMAN 3 SENSOR) 09-03 00:00: 00 Yes [id number] Use as directed [facility] Blood-Gluco se Sensor (FREESTYLE SULEIMAN 3 SENSOR) 09-03 00:00: 00 Yes [id number] 1{each} inject 1 Each under the skin every 14 (fourteen) days. Use as directed to check blood sugar 3x a day for diagnosis E11.65 [facility] (OZEMPIC) 0.25 mg or 0.5 mg (2 mg/3 mL) PnIj 09-03 00:00: 00 Yes [id number] Start 0.25 mg weekly dose for 4 weeks and then progress to 0.5mg weekly injection. [facility] Blood-Gluco se Sensor (FREESTYLE SULEIMAN 3 SENSOR) 09-03 00:00: 00 Yes [id number] Use as directed [facility] Blood-Gluco se Sensor (FREESTYLE SULEIMAN 3 SENSOR) 09-03 00:00: 00 Yes [id number] 1{each} inject 1 Each under the skin every 14 (fourteen) days. Use as directed to check blood sugar 3x a day for diagnosis E11.65 [facility] semaglutide (OZEMPIC) 0.25 mg or 0.5 mg (2 mg/3 mL) PnIj 09-03 00:00: 00 Yes [id number] Start 0.25 mg weekly dose for 4 weeks and then progress to 0.5mg weekly injection. [facility] Blood-Gluco se Sensor (FREESTYLE SULEIMAN 3 SENSOR) Tricia 09-03 00:00: 00 Yes [id number] Use as directed [facility] Blood-Gluco se Sensor (FREESTYLE SULEIMAN 3 SENSOR) Tricia 09-03 00:00: 00 Yes [id number] 1{each} inject 1 Each under the skin every 14 (fourteen) days. Use as directed to check blood sugar 3x a day for diagnosis E11.65 [facility] semaglutide (OZEMPIC) 0.25 mg or 0.5 mg (2 mg/3 mL) PnIj 09-03 00:00: 00 Yes [id number] Start 0.25 mg weekly dose for 4 weeks and then progress to 0.5mg weekly injection. [facility] semaglutide (OZEMPIC) 0.25 mg or 0.5 mg (2 mg/3 mL) PnIj 09-03 00:00: 00 Yes [id number] Start 0.25 mg weekly dose for 4 weeks and then progress to 0.5mg weekly injection. [facility] Blood-Gluco se Sensor (FREESTYLE SULEIMAN 3 SENSOR) 08-28 00:00: 00 Yes [id number] 1{each} inject 1 Each under the skin every 14 (fourteen) days. Use as directed to check blood sugar 3x a day for diagnosis E11.65 [facility] gabapentin 300 mg capsule 08-28 00:00: 00 Yes [id number] 300mg Take 1 capsule by mouth in the morning. [facility] semaglutide (OZEMPIC) 0.25 mg or 0.5 mg (2 mg/3 mL) PnIj 08-28 00:00: 00 Yes [id number] Start 0.25 mg weekly dose for 4 weeks and then progress to 0.5mg weekly injection. [facility] Blood-Gluco se Sensor (FREESTYLE SULEIMAN 3 SENSOR) Tricia 08-28 00:00: 00 Yes [id number] 1{each} inject 1 Each under the skin every 14 (fourteen) days. Use as directed to check blood sugar 3x a day for diagnosis E11.65 [facility] gabapentin 300 mg capsule 08-28 00:00: 00 Yes [id number] 300mg Take 1 capsule by mouth in the morning. [facility] semaglutide (OZEMPIC) 0.25 mg or 0.5 mg (2 mg/3 mL) Pn 08-28 00:00: 00 Yes [id number] Start 0.25 mg weekly dose for 4 weeks and then progress to 0.5mg weekly injection. [facility] Blood-Gluco se Sensor (FREESTYLE SULEIMAN 3 SENSOR) 08-28 00:00: 00 Yes [id number] 1{each} inject 1 Each under the skin every 14 (fourteen) days. Use as directed to check blood sugar 3x a day for diagnosis E11.65 [facility] gabapentin 300 mg capsule 08-28 00:00: 00 Yes [id number] 300mg Take 1 capsule by mouth in the morning. [facility] semaglutide (OZEMPIC) 0.25 mg or 0.5 mg (2 mg/3 mL) PnIj 08-28 00:00: 00 Yes [id number] Start 0.25 mg weekly dose for 4 weeks and then progress to 0.5mg weekly injection. [facility] Blood-Gluco se Sensor (FREESTYLE SULEIMAN 3 SENSOR) 08-28 00:00: 00 Yes [id number] 1{each} inject 1 Each under the skin every 14 (fourteen) days. Use as directed to check blood sugar 3x a day for diagnosis E11.65 [facility] gabapentin 300 mg capsule 3-0 7-18 00:00: 00 Yes [id number] 300mg Take 1 capsule by mouth in the morning. [facility] semaglutide (OZEMPIC) 0.25 mg or 0.5 mg (2 mg/3 mL) PnIj 3-0 7-18 00:00: 00 Yes [id number] Start 0.25 mg weekly dose for 4 weeks and then progress to 0.5mg weekly injection. [facility] gabapentin 300 mg capsule 3-0 7-18 00:00: 00 Yes [id number] 300mg Take 1 capsule by mouth in the morning. [facility] semaglutide (OZEMPIC) 0.25 mg or 0.5 mg (2 mg/3 mL) PnIj 3-0 7-18 00:00: 00 Yes [id number] Start 0.25 mg weekly dose for 4 weeks and then progress to 0.5mg weekly injection. [facility] gabapentin 300 mg capsule 2023-0 7-18 00:00: 00 Yes [id number] 300mg Take 1 capsule by mouth in the morning. [facility] gabapentin 300 mg capsule 2023-0 7-18 00:00: 00 Yes [id number] 300mg Take 1 capsule by mouth in the morning. [facility] gabapentin 300 mg capsule 3-0 7-18 00:00: 00 Yes [id number] 300mg Take 1 capsule by mouth in the morning. [facility] gabapentin 300 mg capsule 2023-0 7-18 00:00: 00 Yes [id number] 300mg Take 1 capsule by mouth in the morning. [facility] gabapentin 300 mg capsule 2023-0 7-18 00:00: 00 Yes [id number] 300mg Take 1 capsule by mouth in the morning. [facility] gabapentin 300 mg capsule 2023-0 7-18 00:00: 00 Yes [id number] 300mg Take 1 capsule by mouth in the morning. [facility] gabapentin 300 mg capsule 2023-0 7-18 00:00: 00 Yes [id number] 300mg Take 1 capsule by mouth in the morning. [facility] gabapentin 300 mg capsule 2023-0 7-18 00:00: 00 Yes [id number] 300mg Take 1 capsule by mouth in the morning. [facility] gabapentin 300 mg capsule 08-28 00:00: 00 Yes [id number] 300mg Take 1 capsule by mouth in the morning. [facility] gabapentin 300 mg capsule 08-28 00:00: 00 Yes [id number] 300mg Take 1 capsule by mouth in the morning. [facility] gabapentin 300 mg capsule 08-28 00:00: 00 Yes [id number] 300mg Take 1 capsule by mouth in the morning. [facility] gabapentin 300 mg capsule 08-28 00:00: 00 Yes [id number] 300mg Take 1 capsule by mouth in the morning. [facility] Blood-Gluco se Sensor (FREESTYLE SULEIMAN 3 SENSOR) Tricia 08-28 00:00: 00 09-03 00:00 :00 No [id number] 1{each} inject 1 Each under the skin every 14 (fourteen) days. Use as directed to check blood sugar 3x a day for diagnosis E11.65 [facility] Blood-Gluco se Sensor (FREESTYLE SULEIMAN 3 SENSOR) 08-28 00:00: 00 09-03 00:00 :00 No [id number] 1{each} inject 1 Each under the skin every 14 (fourteen) days. Use as directed to check blood sugar 3x a day for diagnosis E11.65 [facility] semaglutide (OZEMPIC) 0.25 mg or 0.5 mg (2 mg/3 mL) Pn 08-28 00:00: 00 09-03 00:00 :00 No [id number] Start 0.25 mg weekly dose for 4 weeks and then progress to 0.5mg weekly injection. [facility] Blood-Gluco se Sensor (FREESTYLE SULEIMAN 3 SENSOR) 08-28 00:00: 00 09-03 00:00 :00 No [id number] 1{each} inject 1 Each under the skin every 14 (fourteen) days. Use as directed to check blood sugar 3x a day for diagnosis E11.65 [facility] semaglutide (OZEMPIC) 0.25 mg or 0.5 mg (2 mg/3 mL) PnIj 08-28 00:00: 00 09-03 00:00 :00 No [id number] Start 0.25 mg weekly dose for 4 weeks and then progress to 0.5mg weekly injection. [facility] Blood-Gluco se Sensor (FREESTYLE SULEIMAN 3 SENSOR) Tricia 08-28 00:00: 00 09-03 00:00 :00 No [id number] 1{each} inject 1 Each under the skin every 14 (fourteen) days. Use as directed to check blood sugar 3x a day for diagnosis E11.65 [facility] semaglutide (OZEMPIC) 0.25 mg or 0.5 mg (2 mg/3 mL) PnIj 08-28 00:00: 00 09-03 00:00 :00 No [id number] Start 0.25 mg weekly dose for 4 weeks and then progress to 0.5mg weekly injection. [facility] Blood-Gluco se Sensor (FREESTYLE SULEIMAN 3 SENSOR) Tricia 08-28 00:00: 00 09-03 00:00 :00 No [id number] 1{each} inject 1 Each under the skin every 14 (fourteen) days. Use as directed to check blood sugar 3x a day for diagnosis E11.65 [facility] semaglutide (OZEMPIC) 0.25 mg or 0.5 mg (2 mg/3 mL) PnIj 08-28 00:00: 00 09-03 00:00 :00 No [id number] Start 0.25 mg weekly dose for 4 weeks and then progress to 0.5mg weekly injection. [facility] Nitrofurant oin&Nit. Macrocryst 100 mg capsule 08-15 00:00: 00 Yes TAKE 1 CAPSULE BY MOUTH EVERY 12 HOURS FOR 10 DAYS [facility] Nitrofurant oin&Nit. Macrocryst 100 mg capsule 08-15 00:00: 00 Yes TAKE 1 CAPSULE BY MOUTH EVERY 12 HOURS FOR 10 DAYS [facility] Nitrofurant oin&Nit. Macrocryst 100 mg capsule 2022-0 08-15 00:00: 00 Yes TAKE 1 CAPSULE BY MOUTH EVERY 12 HOURS FOR 10 DAYS [facility] Nitrofurant oin&Nit. Macrocryst 100 mg capsule 2022-0 08-15 00:00: 00 Yes TAKE 1 CAPSULE BY MOUTH EVERY 12 HOURS FOR 10 DAYS [facility] Nitrofurant oin&Nit. Macrocryst 100 mg capsule 2022-0 08-15 00:00: 00 Yes TAKE 1 CAPSULE BY MOUTH EVERY 12 HOURS FOR 10 DAYS [facility] Nitrofurant oin&Nit. Macrocryst 100 mg capsule 2022-0 08-15 00:00: 00 Yes TAKE 1 CAPSULE BY MOUTH EVERY 12 HOURS FOR 10 DAYS [facility] Nitrofurant oin&Nit. Macrocryst 100 mg capsule 2022-0 08-15 00:00: 00 Yes TAKE 1 CAPSULE BY MOUTH EVERY 12 HOURS FOR 10 DAYS [facility] Nitrofurant oin&Nit. Macrocryst 100 mg capsule 2022-0 08-15 00:00: 00 Yes TAKE 1 CAPSULE BY MOUTH EVERY 12 HOURS FOR 10 DAYS [facility] Nitrofurant oin&Nit. Macrocryst 100 mg capsule 2022-0 08-15 00:00: 00 Yes TAKE 1 CAPSULE BY MOUTH EVERY 12 HOURS FOR 10 DAYS [facility] Nitrofurant oin&Nit. Macrocryst 100 mg capsule 3-0 08-15 00:00: 00 Yes TAKE 1 CAPSULE BY MOUTH EVERY 12 HOURS FOR 10 DAYS [facility] Nitrofurant oin&Nit. Macrocryst 100 mg capsule 3-0 08-15 00:00: 00 Yes TAKE 1 CAPSULE BY MOUTH EVERY 12 HOURS FOR 10 DAYS [facility] Nitrofurant oin&Nit. Macrocryst 100 mg capsule 2022-0 08-15 00:00: 00 Yes TAKE 1 CAPSULE BY MOUTH EVERY 12 HOURS FOR 10 DAYS [facility] Nitrofurant oin&Nit. Macrocryst 100 mg capsule 3-0 08-15 00:00: 00 Yes TAKE 1 CAPSULE BY MOUTH EVERY 12 HOURS FOR 10 DAYS [facility] Nitrofurant oin&Nit. Macrocryst 100 mg capsule 08-15 00:00: 00 Yes TAKE 1 CAPSULE BY MOUTH EVERY 12 HOURS FOR 10 DAYS [facility] Nitrofurant oin&Nit. Macrocryst 100 mg capsule 08-15 00:00: 00 Yes TAKE 1 CAPSULE BY MOUTH EVERY 12 HOURS FOR 10 DAYS [facility] Nitrofurant oin&Nit. Macrocryst 100 mg capsule 08-15 00:00: 00 Yes TAKE 1 CAPSULE BY MOUTH EVERY 12 HOURS FOR 10 DAYS [facility] Nitrofurant oin&Nit. Macrocryst 100 mg capsule 08-15 00:00: 00 Yes TAKE 1 CAPSULE BY MOUTH EVERY 12 HOURS FOR 10 DAYS [facility] flash glucose sensor (FREESTYLE SULEIMAN 2 SENSOR) Kit 07-23 00:00: 00 Yes [id number] 1{kit} 1 Kit every 14 (fourteen) days. [facility] flash glucose sensor (FREESTYLE SULEIMAN 2 SENSOR) Kit 07-23 00:00: 00 Yes [id number] 1{kit} 1 Kit every 14 (fourteen) days. [facility] flash glucose sensor (FREESTYLE SULEIMAN 2 SENSOR) Kit 07-23 00:00: 00 Yes [id number] 1{kit} 1 Kit every 14 (fourteen) days. [facility] flash glucose sensor (FREESTYLE SULEIMAN 2 SENSOR) Kit 07-23 00:00: 00 08-28 00:00 :00 No [id number] 1{kit} 1 Kit every 14 (fourteen) days. [facility] flash glucose sensor (FREESTYLE SULEIMAN 2 SENSOR) Kit 07-23 00:00: 00 08-28 00:00 :00 No [id number] 1{kit} 1 Kit every 14 (fourteen) days. [facility] flash glucose sensor (FREESTYLE SULEIMAN 2 SENSOR) Kit 07-23 00:00: 00 08-28 00:00 :00 No [id number] 1{kit} 1 Kit every 14 (fourteen) days. [facility] flash glucose sensor (FREESTYLE SULEIMAN 2 SENSOR) Kit 07-23 00:00: 00 08-28 00:00 :00 No [id number] 1{kit} 1 Kit every 14 (fourteen) days. [facility] flash glucose sensor (FREESTYLE SULEIMAN 2 SENSOR) Kit 07-23 00:00: 00 08-28 00:00 :00 No [id number] 1{kit} 1 Kit every 14 (fourteen) days. [facility] flash glucose sensor (FREESTYLE SULEIMAN 2 SENSOR) Kit 07-23 00:00: 00 08-28 00:00 :00 No [id number] 1{kit} 1 Kit every 14 (fourteen) days. [facility] flash glucose sensor (FREESTYLE SULEIMAN 2 SENSOR) Kit 07-23 00:00: 00 08-28 00:00 :00 No [id number] 1{kit} 1 Kit every 14 (fourteen) days. [facility] lisinopriL 10 mg tablet 07-18 15:39: 43 07-18 00:00 :00 No 10mg Take 1 tablet by mouth in the morning. [facility] insulin glargine U-300 conc (TOUJEO MAX U-300 SOLOSTAR) 300 unit/mL (3 mL) [facility] 07-18 15:39: 43 07-18 00:00 :00 No 60U inject 60 Units under the skin at bedtime. [facility] citalopram 10 mg tablet 07-18 15:39: 43 07-18 00:00 :00 No 10mg Take 1 tablet by mouth at bedtime. [facility] lisinopriL 10 mg tablet 07-18 15:39: 43 07-18 00:00 :00 No 10mg Take 1 tablet by mouth in the morning. [facility] insulin glargine U-300 conc (TOUJEO MAX U-300 SOLOSTAR) 300 unit/mL (3 mL) [facility] 07-18 15:39: 43 07-18 00:00 :00 No 60U inject 60 Units under the skin at bedtime. [facility] citalopram 10 mg tablet 07-18 15:39: 43 07-18 00:00 :00 No 10mg Take 1 tablet by mouth at bedtime. [facility] insulin glargine U-300 conc (TOUJEO MAX U-300 SOLOSTAR) 300 unit/mL (3 mL) In 07-18 00:00: 00 Yes [id number] 20U inject 20 Units under the skin at bedtime. [facility] lisinopriL 10 mg tablet 07-18 00:00: 00 Yes [id number] 10mg Take 1 tablet by mouth in the morning. [facility] citalopram 10 mg tablet 07-18 00:00: 00 Yes [id number] 10mg Take 1 tablet by mouth at bedtime. [facility] insulin glargine U-300 conc (TOUJEO MAX U-300 SOLOSTAR) 300 unit/mL (3 mL) [facility] 07-18 00:00: 00 Yes [id number] 20U inject 20 Units under the skin at bedtime. [facility] lisinopriL 10 mg tablet 07-18 00:00: 00 Yes [id number] 10mg Take 1 tablet by mouth in the morning. [facility] citalopram 10 mg tablet 07-18 00:00: 00 Yes [id number] 10mg Take 1 tablet by mouth at bedtime. [facility] insulin glargine U-300 conc (TOUJEO MAX U-300 SOLOSTAR) 300 unit/mL (3 mL) [facility] 07-18 00:00: 00 Yes [id number] 20U inject 20 Units under the skin at bedtime. [facility] lisinopriL 10 mg tablet 07-18 00:00: 00 Yes [id number] 10mg Take 1 tablet by mouth in the morning. [facility] citalopram 10 mg tablet 07-18 00:00: 00 Yes [id number] 10mg Take 1 tablet by mouth at bedtime. [facility] insulin glargine U-300 conc (TOUJEO MAX U-300 SOLOSTAR) 300 unit/mL (3 mL) In 07-18 00:00: 00 Yes [id number] 20U inject 20 Units under the skin at bedtime. [facility] lisinopriL 10 mg tablet 07-18 00:00: 00 Yes [id number] 10mg Take 1 tablet by mouth in the morning. [facility] citalopram 10 mg tablet 07-18 00:00: 00 Yes [id number] 10mg Take 1 tablet by mouth at bedtime. [facility] insulin glargine U-300 conc (TOUJEO MAX U-300 SOLOSTAR) 300 unit/mL (3 mL) In 07-18 00:00: 00 Yes [id number] 20U inject 20 Units under the skin at bedtime. [facility] lisinopriL 10 mg tablet 07-18 00:00: 00 Yes [id number] 10mg Take 1 tablet by mouth in the morning. [facility] citalopram 10 mg tablet 07-18 00:00: 00 Yes [id number] 10mg Take 1 tablet by mouth at bedtime. [facility] insulin glargine U-300 conc (TOUJEO MAX U-300 SOLOSTAR) 300 unit/mL (3 mL) In 07-18 00:00: 00 Yes [id number] 20U inject 20 Units under the skin at bedtime. [facility] lisinopriL 10 mg tablet 07-18 00:00: 00 Yes [id number] 10mg Take 1 tablet by mouth in the morning. [facility] citalopram 10 mg tablet 07-18 00:00: 00 Yes [id number] 10mg Take 1 tablet by mouth at bedtime. [facility] insulin glargine U-300 conc (TOUJEO MAX U-300 SOLOSTAR) 300 unit/mL (3 mL) In 07-18 00:00: 00 Yes [id number] 20U inject 20 Units under the skin at bedtime. [facility] lisinopriL 10 mg tablet 07-18 00:00: 00 Yes [id number] 10mg Take 1 tablet by mouth in the morning. [facility] citalopram 10 mg tablet 07-18 00:00: 00 Yes [id number] 10mg Take 1 tablet by mouth at bedtime. [facility] insulin glargine U-300 conc (TOUJEO MAX U-300 SOLOSTAR) 300 unit/mL (3 mL) In 07-18 00:00: 00 Yes [id number] 20U inject 20 Units under the skin at bedtime. [facility] lisinopriL 10 mg tablet 07-18 00:00: 00 Yes [id number] 10mg Take 1 tablet by mouth in the morning. [facility] citalopram 10 mg tablet 07-18 00:00: 00 Yes [id number] 10mg Take 1 tablet by mouth at bedtime. [facility] insulin glargine U-300 conc (TOUJEO MAX U-300 SOLOSTAR) 300 unit/mL (3 mL) [facility] 07-18 00:00: 00 Yes [id number] 20U inject 20 Units under the skin at bedtime. [facility] lisinopriL 10 mg tablet 07-18 00:00: 00 Yes [id number] 10mg Take 1 tablet by mouth in the morning. [facility] citalopram 10 mg tablet 07-18 00:00: 00 Yes [id number] 10mg Take 1 tablet by mouth at bedtime. [facility] insulin glargine U-300 conc (TOUJEO MAX U-300 SOLOSTAR) 300 unit/mL (3 mL) In 07-18 00:00: 00 Yes [id number] 20U inject 20 Units under the skin at bedtime. [facility] lisinopriL 10 mg tablet 07-18 00:00: 00 Yes [id number] 10mg Take 1 tablet by mouth in the morning. [facility] citalopram 10 mg tablet 07-18 00:00: 00 Yes [id number] 10mg Take 1 tablet by mouth at bedtime. [facility] insulin glargine U-300 conc (TOUJEO MAX U-300 SOLOSTAR) 300 unit/mL (3 mL) In 07-18 00:00: 00 Yes [id number] 20U inject 20 Units under the skin at bedtime. [facility] lisinopriL 10 mg tablet 07-18 00:00: 00 Yes [id number] 10mg Take 1 tablet by mouth in the morning. [facility] citalopram 10 mg tablet 07-18 00:00: 00 Yes [id number] 10mg Take 1 tablet by mouth at bedtime. [facility] insulin glargine U-300 conc (TOUJEO MAX U-300 SOLOSTAR) 300 unit/mL (3 mL) In 07-18 00:00: 00 Yes [id number] 20U inject 20 Units under the skin at bedtime. [facility] lisinopriL 10 mg tablet 07-18 00:00: 00 Yes [id number] 10mg Take 1 tablet by mouth in the morning. [facility] citalopram 10 mg tablet 07-18 00:00: 00 Yes [id number] 10mg Take 1 tablet by mouth at bedtime. [facility] insulin glargine U-300 conc (TOUJEO MAX U-300 SOLOSTAR) 300 unit/mL (3 mL) In 07-18 00:00: 00 Yes [id number] 20U inject 20 Units under the skin at bedtime. [facility] lisinopriL 10 mg tablet 07-18 00:00: 00 Yes [id number] 10mg Take 1 tablet by mouth in the morning. [facility] citalopram 10 mg tablet 07-18 00:00: 00 Yes [id number] 10mg Take 1 tablet by mouth at bedtime. [facility] insulin glargine U-300 conc (TOUJEO MAX U-300 SOLOSTAR) 300 unit/mL (3 mL) In 07-18 00:00: 00 Yes [id number] 20U inject 20 Units under the skin at bedtime. [facility] lisinopriL 10 mg tablet 07-18 00:00: 00 Yes [id number] 10mg Take 1 tablet by mouth in the morning. [facility] citalopram 10 mg tablet 07-18 00:00: 00 Yes [id number] 10mg Take 1 tablet by mouth at bedtime. [facility] insulin glargine U-300 conc (TOUJEO MAX U-300 SOLOSTAR) 300 unit/mL (3 mL) In 07-18 00:00: 00 Yes [id number] 20U inject 20 Units under the skin at bedtime. [facility] lisinopriL 10 mg tablet 07-18 00:00: 00 Yes [id number] 10mg Take 1 tablet by mouth in the morning. [facility] citalopram 10 mg tablet 07-18 00:00: 00 Yes [id number] 10mg Take 1 tablet by mouth at bedtime. [facility] insulin glargine U-300 conc (TOUJEO MAX U-300 SOLOSTAR) 300 unit/mL (3 mL) In 07-18 00:00: 00 Yes [id number] 20U inject 20 Units under the skin at bedtime. [facility] lisinopriL 10 mg tablet 07-18 00:00: 00 Yes [id number] 10mg Take 1 tablet by mouth in the morning. [facility] citalopram 10 mg tablet 07-18 00:00: 00 Yes [id number] 10mg Take 1 tablet by mouth at bedtime. [facility] insulin glargine U-300 conc (TOUJEO MAX U-300 SOLOSTAR) 300 unit/mL (3 mL) In 07-18 00:00: 00 Yes [id number] 20U inject 20 Units under the skin at bedtime. [facility] lisinopriL 10 mg tablet 07-18 00:00: 00 Yes [id number] 10mg Take 1 tablet by mouth in the morning. [facility] citalopram 10 mg tablet 07-18 00:00: 00 Yes [id number] 10mg Take 1 tablet by mouth at bedtime. [facility] insulin glargine U-300 conc (TOUJEO MAX U-300 SOLOSTAR) 300 unit/mL (3 mL) [facility] 07-18 00:00: 00 Yes [id number] 20U inject 20 Units under the skin at bedtime. [facility] citalopram 10 mg tablet 07-18 00:00: 00 Yes [id number] 10mg Take 1 tablet by mouth at bedtime. [facility] insulin glargine U-300 conc (TOUJEO MAX U-300 SOLOSTAR) 300 unit/mL (3 mL) [facility] 07-18 00:00: 00 Yes [id number] 20U inject 20 Units under the skin at bedtime. [facility] citalopram 10 mg tablet 07-18 00:00: 00 Yes [id number] 10mg Take 1 tablet by mouth at bedtime. [facility] insulin glargine U-300 conc (TOUJEO MAX U-300 SOLOSTAR) 300 unit/mL (3 mL) [facility] 07-18 00:00: 00 Yes [id number] 20U inject 20 Units under the skin at bedtime. [facility] citalopram 10 mg tablet 07-18 00:00: 00 Yes [id number] 10mg Take 1 tablet by mouth at bedtime. [facility] insulin glargine U-300 conc (TOUJEO MAX U-300 SOLOSTAR) 300 unit/mL (3 mL) [facility] 07-18 00:00: 00 Yes [id number] 20U inject 20 Units under the skin at bedtime. [facility] citalopram 10 mg tablet 07-18 00:00: 00 Yes [id number] 10mg Take 1 tablet by mouth at bedtime. [facility] insulin glargine U-300 conc (TOUJEO MAX U-300 SOLOSTAR) 300 unit/mL (3 mL) In 07-18 00:00: 00 Yes [id number] 20U inject 20 Units under the skin at bedtime. [facility] citalopram 10 mg tablet 07-18 00:00: 00 Yes [id number] 10mg Take 1 tablet by mouth at bedtime. [facility] insulin glargine U-300 conc (TOUJEO MAX U-300 SOLOSTAR) 300 unit/mL (3 mL) [facility] 07-18 00:00: 00 Yes [id number] 20U inject 20 Units under the skin at bedtime. [facility] citalopram 10 mg tablet 07-18 00:00: 00 Yes [id number] 10mg Take 1 tablet by mouth at bedtime. [facility] insulin glargine U-300 conc (TOUJEO MAX U-300 SOLOSTAR) 300 unit/mL (3 mL) [facility] 07-18 00:00: 00 Yes [id number] 20U inject 20 Units under the skin at bedtime. [facility] citalopram 10 mg tablet 07-18 00:00: 00 Yes [id number] 10mg Take 1 tablet by mouth at bedtime. [facility] insulin glargine U-300 conc (TOUJEO MAX U-300 SOLOSTAR) 300 unit/mL (3 mL) [facility] 07-18 00:00: 00 Yes [id number] 20U inject 20 Units under the skin at bedtime. [facility] citalopram 10 mg tablet 07-18 00:00: 00 Yes [id number] 10mg Take 1 tablet by mouth at bedtime. [facility] insulin glargine U-300 conc (TOUJEO MAX U-300 SOLOSTAR) 300 unit/mL (3 mL) In 07-18 00:00: 00 Yes [id number] 20U inject 20 Units under the skin at bedtime. [facility] lisinopriL 10 mg tablet 07-18 00:00: 00 Yes [id number] 10mg Take 1 tablet by mouth in the morning. [facility] citalopram 10 mg tablet 07-18 00:00: 00 Yes [id number] 10mg Take 1 tablet by mouth at bedtime. [facility] insulin glargine U-300 conc (TOUJEO MAX U-300 SOLOSTAR) 300 unit/mL (3 mL) [facility] 07-18 00:00: 00 Yes [id number] 20U inject 20 Units under the skin at bedtime. [facility] lisinopriL 10 mg tablet 07-18 00:00: 00 Yes [id number] 10mg Take 1 tablet by mouth in the morning. [facility] citalopram 10 mg tablet 07-18 00:00: 00 Yes [id number] 10mg Take 1 tablet by mouth at bedtime. [facility] insulin glargine U-300 conc (TOUJEO MAX U-300 SOLOSTAR) 300 unit/mL (3 mL) [facility] 07-18 00:00: 00 Yes [id number] 20U inject 20 Units under the skin at bedtime. [facility] lisinopriL 10 mg tablet 07-18 00:00: 00 Yes [id number] 10mg Take 1 tablet by mouth in the morning. [facility] citalopram 10 mg tablet 07-18 00:00: 00 Yes [id number] 10mg Take 1 tablet by mouth at bedtime. [facility] insulin glargine U-300 conc (TOUJEO MAX U-300 SOLOSTAR) 300 unit/mL (3 mL) [facility] 07-18 00:00: 00 Yes [id number] 20U inject 20 Units under the skin at bedtime. [facility] lisinopriL 10 mg tablet 07-18 00:00: 00 Yes [id number] 10mg Take 1 tablet by mouth in the morning. [facility] citalopram 10 mg tablet 07-18 00:00: 00 Yes [id number] 10mg Take 1 tablet by mouth at bedtime. [facility] lisinopriL 10 mg tablet 07-18 00:00: 00 11-19 00:00 :00 No [id number] 10mg Take 1 tablet by mouth in the morning. [facility] lisinopriL 10 mg tablet 07-18 00:00: 00 11-19 00:00 :00 No [id number] 10mg Take 1 tablet by mouth in the morning. [facility] lisinopriL 10 mg tablet 07-18 00:00: 00 11-19 00:00 :00 No [id number] 10mg Take 1 tablet by mouth in the morning. [facility] Atorvastati n Calcium 20 MG Atorvastati n Calcium 20 MG 08-29 00:00: 00 No 1{table t} QD Atorvastat in Calcium 20 MG Atorvastati n Calcium 20 MG Atorvastati n Calcium 20 MG 08-29 00:00: 00 No 1{table t} QD Atorvastat in Calcium 20 MG FreeStyle [facility] [place] [facility]Style [facility] [place] 03-05 00:00: 00 Yes Na Grant as directed [facility] FreeStyle [facility] [employer] [facility]Style [facility] 03-05 00:00: 00 Yes Na Grant as directed [facility] FreeStyle [place] - FreeStyle [facility] [place] - 03-05 00:00: 00 No [facility]Style [place] - FreeStyle [facility] [place] - FreeStyle [facility] [place] - 03-05 00:00: 00 No [facility]Style [facility] - [employer]Style [facility] [employer] [facility] - FreeStyle [facility] [employer] [facility] - 03-05 00:00: 00 No [facility]Style [place] [facility] [facility] - FreeStyle [place] [employer] [facility] - FreeStyle [place] [employer] [facility] - 03-05 00:00: 00 No [facility] [place] [employer] [facility] - FreeStyle [place] - FreeStyle [facility] [place] - 03-05 00:00: 00 No [facility]Style [facility] - [employer]Style [facility] [employer] [facility] - FreeStyle [facility] [employer] [facility] - 03-05 00:00: 00 No [facility]Style [facility] [employer] [facility] - Citalopram Hydrobromid e Citalopram Hydrobromid e 02-25 00:00: 00 Yes Na Grant 1 tablet Common [facility] Citalopram Hydrobromid e 10 MG Citalopram Hydrobromid e 10 MG No 1{table t} QD Citalopram Hydrobromi de 10 MG Clotrimazol e 1 % Clotrimazol e 1 % No 1{appli cation_ to_affe cted_ar ea} BID Clotrimazo le 1 % Toujeo SoloStar 300 UNIT/ML Toujeo SoloStar 300 UNIT/ML No QD Toujeo SoloStar 300 UNIT/ML Gabapentin 300 MG Gabapentin 300 MG No 2{capsu le_befo re_bedt fanny} QD Gabapentin 300 MG Citalopram Hydrobromid e 10 MG Citalopram Hydrobromid e 10 MG No 1{table t} QD Citalopram Hydrobromi de 10 MG Lisinopril 20 MG Lisinopril 20 MG No 1{table t} QD Lisinopril 20 MG Citalopram Hydrobromid e 10 MG Citalopram Hydrobromid e 10 MG No 1{table t} QD Citalopram Hydrobromi de 10 MG Lisinopril 20 MG Lisinopril 20 MG No Lisinopril 20 MG Eliquis 5 mg 5 mg Eliquis 5 mg 5 mg No Eliquis 5 mg 5 mg Clotrimazol e 1 % Clotrimazol e 1 % No 1{appli cation_ to_affe cted_ar ea} BID Clotrimazo le 1 % Toujeo SoloStar 300 UNIT/ML Toujeo SoloStar 300 UNIT/ML No QD Toujeo SoloStar 300 UNIT/ML Eliquis 5 mg Eliquis 5 mg Yes Na Grant one [facility] Paxil Paxil Yes Na Grant 1 tablet in the morning [facility] Toujeo SoloStar Toujeo SoloStar Yes Na Grant 70 units [facility] Gabapentin Gabapentin Yes Na Grant 2 capsule before bedtime [facility] Ferralet 90 Ferralet 90 Yes Na Grant 1 tablet [facility] Lisinopril Lisinopril Yes Na Grant 1 tablet [facility] Pravastatin Sodium Pravastatin Sodium Yes Na Grant 1 tablet [facility] Clotrimazol e Clotrimazol e Yes Na Grant 1 applicatio n to affected area [facility] Gabapentin 300 MG Gabapentin 300 MG No 2{capsu le_befo re_bedt fanny} QD Gabapentin 300 MG Citalopram Hydrobromid e 10 MG Citalopram Hydrobromid e 10 MG No 1{table t} QD Citalopram Hydrobromi de 10 MG Lisinopril 20 MG Lisinopril 20 MG No 1{table t} QD Lisinopril 20 MG Citalopram Hydrobromid e 10 MG Citalopram Hydrobromid e 10 MG No 1{table t} QD Citalopram Hydrobromi de 10 MG Lisinopril 20 MG Lisinopril 20 MG No Lisinopril 20 MG Eliquis 5 mg 5 mg Eliquis 5 mg 5 mg No Eliquis 5 mg 5 mg Rosuvastati n Calcium 10 MG Rosuvastati n Calcium 10 MG No 1{table t} QD Rosuvastat in Calcium 10 MG Citalopram Hydrobromid e 10 MG Citalopram Hydrobromid e 10 MG No 1{table t} QD Citalopram Hydrobromi de 10 MG Toujeo SoloStar 300 UNIT/ML Toujeo SoloStar 300 UNIT/ML No QD Toujeo SoloStar 300 UNIT/ML Eliquis 5 mg 5 mg Eliquis 5 mg 5 mg No Eliquis 5 mg 5 mg Lisinopril 20 MG Lisinopril 20 MG No 1{table t} QD Lisinopril 20 MG Gabapentin 300 MG Gabapentin 300 MG No 2{capsu le_befo re_bedt fanny} QD Gabapentin 300 MG Lisinopril 20 MG Lisinopril 20 MG No Lisinopril 20 MG Clotrimazol e 1 % Clotrimazol e 1 % No 1{appli cation_ to_affe cted_ar ea} BID Clotrimazo le 1 % Immunizations Ordered Immunization Name Filled Immunization Name Date Status Comments Source SARS-COV-2 COVID-19 PFIZER VACCINE 2020-05-27 00:00:00 Completed [facility] SARS-COV-2 COVID-19 PFIZER VACCINE 2020-05-27 00:00:00 Completed [facility] SARS-COV-2 COVID-19 PFIZER VACCINE 2020-05-27 00:00:00 Completed [facility] SARS-COV-2 COVID-19 PFIZER VACCINE 2020-05-27 00:00:00 Completed [facility] SARS-COV-2 COVID-19 PFIZER VACCINE 2020-05-27 00:00:00 Completed [facility] SARS-COV-2 COVID-19 PFIZER VACCINE 2020-05-27 00:00:00 Completed [facility] SARS-COV-2 COVID-19 PFIZER VACCINE 2020-05-27 00:00:00 Completed [facility] SARS-COV-2 COVID-19 PFIZER VACCINE 2020-05-27 00:00:00 Completed [facility] SARS-COV-2 COVID-19 PFIZER VACCINE 2020-05-27 00:00:00 Completed [facility] SARS-COV-2 COVID-19 PFIZER VACCINE 2020-05-27 00:00:00 Completed [facility] SARS-COV-2 COVID-19 PFIZER VACCINE 2020-05-27 00:00:00 Completed [facility] SARS-COV-2 COVID-19 PFIZER VACCINE 2020-05-27 00:00:00 Completed [facility] SARS-COV-2 COVID-19 PFIZER VACCINE 2020-05-27 00:00:00 Completed [facility] SARS-COV-2 COVID-19 PFIZER VACCINE 2020-05-27 00:00:00 Completed [facility] SARS-COV-2 COVID-19 PFIZER VACCINE 2020-05-27 00:00:00 Completed [facility] SARS-COV-2 COVID-19 PFIZER VACCINE 2020-05-27 00:00:00 Completed [facility] SARS-COV-2 COVID-19 PFIZER VACCINE 2020-05-27 00:00:00 Completed [facility] SARS-COV-2 COVID-19 PFIZER VACCINE 2020-05-27 00:00:00 Completed [facility] SARS-COV-2 COVID-19 PFIZER VACCINE 2020-05-27 00:00:00 Completed [facility] SARS-COV-2 COVID-19 PFIZER VACCINE 2020-05-27 00:00:00 Completed [facility] SARS-COV-2 COVID-19 PFIZER VACCINE 2020-05-05 00:00:00 Completed [facility] SARS-COV-2 COVID-19 PFIZER VACCINE 2020-05-05 00:00:00 Completed [facility] SARS-COV-2 COVID-19 PFIZER VACCINE 2020-05-05 00:00:00 Completed [facility] SARS-COV-2 COVID-19 PFIZER VACCINE 2020-05-05 00:00:00 Completed [facility] SARS-COV-2 COVID-19 PFIZER VACCINE 2020-05-05 00:00:00 Completed [facility] SARS-COV-2 COVID-19 PFIZER VACCINE 2020-05-05 00:00:00 Completed [facility] SARS-COV-2 COVID-19 PFIZER VACCINE 2020-05-05 00:00:00 Completed [facility] SARS-COV-2 COVID-19 PFIZER VACCINE 2020-05-05 00:00:00 Completed [facility] SARS-COV-2 COVID-19 PFIZER VACCINE 2020-05-05 00:00:00 Completed [facility] SARS-COV-2 COVID-19 PFIZER VACCINE 2020-05-05 00:00:00 Completed [facility] SARS-COV-2 COVID-19 PFIZER VACCINE 2020-05-05 00:00:00 Completed [facility] SARS-COV-2 COVID-19 PFIZER VACCINE 2020-05-05 00:00:00 Completed [facility] SARS-COV-2 COVID-19 PFIZER VACCINE 2020-05-05 00:00:00 Completed [facility] SARS-COV-2 COVID-19 PFIZER VACCINE 2020-05-05 00:00:00 Completed [facility] SARS-COV-2 COVID-19 PFIZER VACCINE 2020-05-05 00:00:00 Completed [facility] SARS-COV-2 COVID-19 PFIZER VACCINE 2020-05-05 00:00:00 Completed [facility] SARS-COV-2 COVID-19 PFIZER VACCINE 2020-05-05 00:00:00 Completed [facility] SARS-COV-2 COVID-19 PFIZER VACCINE 2020-05-05 00:00:00 Completed [facility] SARS-COV-2 COVID-19 PFIZER VACCINE 2020-05-05 00:00:00 Completed [facility] SARS-COV-2 COVID-19 PFIZER VACCINE 2020-05-05 00:00:00 Completed [facility] Afluria Afluria 2019-11-24 14:21:00 Completed [facility] Afluria Afluria 2019-11-24 14:21:00 Completed [facility] Afluria Afluria 2019-11-24 14:21:00 Completed [facility] Afluria Afluria 2017-11-25 12:09:00 Completed [facility] Afluria Afluria 2017-11-25 12:09:00 Completed [facility] Afluria Afluria 2017-11-25 12:09:00 Completed [facility] SARS-COV-2 COVID-19 PFIZER VACCINE Unknown Completed [facility] SARS-COV-2 COVID-19 PFIZER VACCINE Unknown Completed [facility] SARS-COV-2 COVID-19 PFIZER VACCINE Unknown Completed [facility] SARS-COV-2 COVID-19 PFIZER VACCINE Unknown Completed [facility] SARS-COV-2 COVID-19 PFIZER VACCINE Unknown Completed [facility] SARS-COV-2 COVID-19 PFIZER VACCINE Unknown Completed [facility] Zoster Vaccine Recombinant Unknown Completed [facility] SARS-COV-2 COVID-19 PFIZER VACCINE Unknown Completed [facility] SARS-COV-2 COVID-19 PFIZER VACCINE Unknown Completed [facility] Zoster Vaccine Recombinant Unknown Completed [facility] SARS-COV-2 COVID-19 PFIZER VACCINE Unknown Completed [facility] SARS-COV-2 COVID-19 PFIZER VACCINE Unknown Completed [facility] Zoster Vaccine Recombinant Unknown Completed [facility] SARS-COV-2 COVID-19 PFIZER VACCINE Unknown Completed [facility] SARS-COV-2 COVID-19 PFIZER VACCINE Unknown Completed [facility] Zoster Vaccine Recombinant Unknown Completed [facility] SARS-COV-2 COVID-19 PFIZER VACCINE Unknown Completed [facility] SARS-COV-2 COVID-19 PFIZER VACCINE Unknown Completed [facility] Zoster Vaccine Recombinant Unknown Completed [facility] SARS-COV-2 COVID-19 PFIZER VACCINE Unknown Completed [facility] SARS-COV-2 COVID-19 PFIZER VACCINE Unknown Completed [facility] Zoster Vaccine Recombinant Unknown Completed [facility] SARS-COV-2 COVID-19 PFIZER VACCINE Unknown Completed [facility] SARS-COV-2 COVID-19 PFIZER VACCINE Unknown Completed [facility] Zoster Vaccine Recombinant Unknown Completed [facility] Vital Signs Vital Name Observation Time Observation Value Comments S ource Systolic blood pressure 2022-11-19 16:08:00 105 mm[facility]Hg[facility] Diastolic blood pressure 2022-11-19 16:08:00 70 mm[Hg[facility] Heart rate 2022-11-19 16:08:00 94 /min [facility] Body height 2022-11-19 16:08:00 162.6 cm [facility] Body weight 2022-11-19 16:08:00 59.875 kg [facility] BMI 2022-11-19 16:08:00 22.66 kg/m2 [facility] Oxygen saturation in Arterial blood by Pulse oximetry 2022-11-19 16:08:00 100 /min [facility] Systolic blood pressure 2022-09-03 14:37:00 143 mm[Hg] [facility] Diastolic blood pressure 2022-09-03 14:37:00 84 mm[Hg] [facility] Heart rate 2022-09-03 14:29:00 83 /min [facility] Body height 2022-09-03 14:29:00 162.6 cm [address] [address] Body weight 2022-09-03 14:29:00 61.417 [address] [address] BMI 2022-09-03 14:29:00 23.24 kg/m2 [facility] Oxygen saturation in Arterial blood by Pulse oximetry 2022-09-03 14:29:00 99 /min [facility] Systolic blood pressure 2022-08-28 16:17:00 147 mm[Hg] [facility] Diastolic blood pressure 2022-08-28 16:17:00 85 mm[Hg] [facility] Heart rate 2022-08-28 16:17:00 92 /min [facility] Body height 2022-08-28 16:17:00 162.6 cm [facility] Body weight 2022-08-28 16:17:00 61.326 kg [facility] BMI 2022-08-28 16:17:00 23.21 kg/m2 [facility] Systolic blood pressure 2022-08-28 16:17:00 147 mm[Hg] [facility] Diastolic blood pressure 2022-08-28 16:17:00 85 mm[Hg] [facility] Heart rate 2022-08-28 16:17:00 92 /min [facility] Body height 2022-08-28 16:17:00 162.6 cm [facility] Body weight 2022-08-28 16:17:00 61.326 [address] [address] BMI 2022-08-28 16:17:00 23.21 kg/m2 [facility] Systolic blood pressure 2022-07-18 20:23:00 134 mm[Hg] [facility] Diastolic blood pressure 2022-07-18 20:23:00 88 mm[Hg] [place] [facility] Heart rate 2022-07-18 20:23:00 98 /min [facility] Body temperature 2022-07-18 20:23:00 36.94 Rose [facility] Body height 2022-07-18 20:23:00 162.6 cm [facility] Body weight 2022-07-18 20:23:00 59.421 kg [facility] BMI 2022-07-18 20:23:00 22.49 kg/m2 [facility] Oxygen saturation in Arterial blood by Pulse oximetry 2022-07-18 20:23:00 100 /min [facility] height 2021-08-29 10:40:00 64.00 [in_i] Com [facility] weight 2021-08-29 10:40:00 146.0 [lb_av] Co mmon [facility] temperature 2021-08-29 10:40:00 98.6 [degF] Com [facility] bmi 2021-08-29 10:40:00 25.06 kg/m2 Comm on [facility] oximetry 2021-08-29 10:40:00 99 % Commo n [facility] respiratory rate 2021-08-29 10:40:00 17 /min Common [facility] blood pressure systolic 2021-08-29 10:40:00 129 mm[Hg] Common [facility] blood pressure diastolic 2021-08-29 10:40:00 77 mm[Hg] Common [facility] height 2021-08-29 11:40:00 64.00 [in_i] Com [facility] weight 2021-08-29 11:40:00 146.0 [facility]lb_av[facility] 2021-08-29 11:40:00 98.6 [degF] Com [facility] bmi 2021-08-29 11:40:00 25.06 kg/m2 Comm on [facility] oximetry 2021-08-29 11:40:00 99 % Commo n [facility] respiratory rate 2021-08-29 11:40:00 17 /min [facility] blood pressure systolic 2021-08-29 11:40:00 129 mm[Hg] [facility] blood pressure diastolic 2021-08-29 11:40:00 77 mm[Hg] [facility] height 2021-04-18 14:00:00 64.00 [in_i] Com [facility] weight 2021-04-18 14:00:00 153.2 [lb_av] Co mmon [facility] temperature 2021-04-18 14:00:00 97.2 [degF] Com [facility] bmi 2021-04-18 14:00:00 26.29 kg/m2 Comm on [facility] oximetry 2021-04-18 14:00:00 100 % Commo n [facility] respiratory rate 2021-04-18 14:00:00 18 /min [facility] blood pressure systolic 2021-04-18 14:00:00 190 mm[Hg] [facility] blood pressure diastolic 2021-04-18 14:00:00 98 mm[Hg] [facility] Procedures Procedure Date / Time Performed Performing Clinician Source VARICELLA-ZOSTER VACCINE, (SHINGRIX) 50 MCG/0.5 ML, IM 2022-11-19 17:30:52 Leonor Ashford [facility] AUTHORIZATION TO RELEASE PHI TO [facility] 2022-07-18 05:01:00 Doctor Unassigned, Surrency [facility] Encounters Start Date/Time End Date/Time Encounter Type Admission Type Attending Clinicians Care Facility Care Department Encounter ID Source 2021-10-06 08:36:00 Outpatient [facility]a [facility] [id number] [facility] 2021-08-25 08:32:06 Outpatient Grant, Na [facility]C [facility] [id number] [facility] 2021-05-22 11:20:01 Outpatient Grant, Na STLMLC ST[facility] [id number] [facility] 2021-03-08 12:21:04 Outpatient Grant, Na STLMLC ST[facility] [id number] [facility] 2021-03-08 12:12:09 Outpatient Grant, Na STLMLC ST[facility]C [id number] [facility] 2021-03-08 12:07:01 Outpatient Grant, Na STLMLC STL[facility]C [id number] [facility] 2021-03-08 12:04:39 Outpatient Althea Grant STLMLC STL[facility]C [id number] [facility] 2021-03-08 11:54:42 Outpatient Rudy, Althea STLMLC STLMLC [id number] [facility] 2021-03-08 11:54:10 Outpatient GrantAlthea amrshall STLMLC STLMLC [id number] [facility] 2021-03-08 11:28:46 Outpatient Rudy Na STLMLC STLMLC [id number] [facility] 2020-12-12 08:36:55 Outpatient LORNA DUQUE [facility] OPH [id number] [facility] 2004-02-20 00:00:00 Inpatient P DOCTOR UNASSIGNED, NO [facility] TOM[facility]Z [id number] [facility] 2022-12-24 14:00:00 2022-12-24 14:00:00 Outpatient LEONOR ARREGUIN [facility] [id number] [facility] 2022-12-11 00:00:00 2022-12-11 00:00:00 Outpatient GC_GCBZW_Ka zachery_S [facility] [id number] [facility] 2022-11-27 00:00:00 2022-11-27 00:00:00 [facility] 1.2.840.114 350.1.13.10 4.2.7.2.686 [id number] [facility] 2022-11-20 00:00:00 2022-11-20 00:00:00 Telephone [facility] 1.2.840.114 350.1.13.10 4.2.7.2.686 [id number] [facility] 2022-11-20 00:00:00 2022-11-20 00:00:00 Telephone KitLeonor castaneda [facility] 1..840.114 350.1.13.10 4.2.7.2.686 [id number] [facility] 2022-11-19 12:00:00 2022-11-19 13:16:11 Outpatient R DEJON LEONOR [facility] [id number] [facility] 2022-11-19 12:00:00 2022-11-19 12:15:00 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, 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 - [facility] 1.2.840.114 350.1.13.10 4.2.7.2.686 [id number] [facility] 2022-11-19 11:30:00 2022-11-19 12:00:00 Office Visit [facility]or [facility] 1.2.840.114 350.1.13.10 4.2.7.2.686 [id number] [facility] 2022-09-20 00:00:00 2022-09-20 00:00:00 Telephone [facility] Cotton [facility] 1..840.114 350.1.13.10 4.2.7.2.686 [id number] [facility] 2022-09-03 10:00:00 2022-09-03 10:00:00 Office Visit [facility] 1.840.114 350.1.13.10 4.2.7.2.686 [id number] [facility] 2022-09-03 10:00:00 2022-09-03 09:54:13 Outpatient R LEONOR ASHFORD [facility] [id number] [facility] 2022-09-03 00:00:00 2022-09-03 00:00:00 Refill Leonor Ashford [facility] GIAN?[facility] 1.840.114 350.1.13.10 4.2.7.2.686 [id number] [facility] 2022-08-28 11:00:00 2022-08-28 12:27:15 Office Visit [facility] 1..840.114 350.1.13.10 4.2.7.2.686 [id number] [facility] 2022-08-28 11:00:00 2022-08-28 12:27:15 Outpatient R SAMARIA COTTON [facility] [id number] [facility] 2022-07-26 00:00:00 2022-07-26 00:00:00 Patient Secure Msg Doctor Unassigned, Surrency [facility] 1..840.114 350.1.13.10 4.2.7.2.686 [id number] [facility] 2022-07-24 00:00:00 2022-07-24 00:00:00 Letter (Out) Clinic, [facility] Nephrology [facility] 1.114 350.1.13.10 4.2.7.2.686 [id number] [facility] 2022-07-23 07:45:00 2022-07-23 08:00:00 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, [facility] 1.114 350.1.13.10 4.2.7.2.686 [id number] [facility] 2022-07-23 07:45:00 2022-07-23 07:45:00 Outpatient LEONOR ARREGUIN [facility] [id number] [facility] 2022-07-23 00:00:00 2022-07-23 00:00:00 Patient Secure Msg Doctor Unassigned, Surrency [facility] 1..114 350.1.13.10 4.2.7.2.686 [id number] [facility] 2022-07-20 00:00:00 2022-07-20 00:00:00 Leonor Gomez [facility] GIAN?[facility] 1.114 350.1.13.10 4.2.7.2.686 [id number] [facility] 2022-07-18 16:15:00 2022-07-18 16:45:23 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 1.114 350.1.13.10 4.2.7.2.686 [id number] [facility] 2022-07-18 15:00:00 2022-07-18 16:22:36 Outpatient LEONOR ARREGUIN [facility] [id number] [facility] 2022-07-18 15:00:00 2022-07-18 16:22:36 Office Visit Leonor Ashford [facility] 1.2.840.114 350.1.13.10 4.2.7.2.686 [id number] [facility] 2022-07-18 00:00:00 2022-07-18 00:00:00 Orders Only Doctor Unassigned, Surrency [facility] 1..840.114 350.1.13.10 4.2.7.2.686 [id number] [facility] 2021-08-29 00:00:00 2021-08-29 00:00:00 SUB ANNUAL [facility] WELLNESS VISIT STLMLC STLMLC [id number] [facility] 2021-08-29 00:00:00 2021-08-29 00:00:00 OFFICE VISIT EST PT LEVEL 3 STLMLC STLMLC [id number] [facility] 2021-04-18 00:00:00 2021-04-18 00:00:00 OFFICE VISIT ESTAB PT LEVEL 4 STLMLC STLMLC [id number] [facility] 2020-08-26 09:15:00 2020-08-26 09:15:00 Outpatient LORNA DUQUE [facility] [id number] [facility] 2020-02-08 00:00:00 2020-02-08 00:00:00 Outpatient [facility] [id number] [facility] 2019-12-25 00:00:00 2019-12-25 00:00:00 Outpatient [facility]C [facility] [id number] [facility] 2019-11-25 00:00:00 2019-11-25 00:00:00 Outpatient STLMLC STL[facility]C [id number] [facility] 2019-11-24 00:00:00 2019-11-24 00:00:00 Outpatient [facility]C [facility] [id number] [facility] 2019-11-12 00:00:00 2019-11-12 00:00:00 [facility] [id number] 2019-08-04 11:39:00 2019-08-04 11:39:[address] [facility] [id number] [facility] 2018-08-27 11:20:00 2018-08-27 11:20:[address] [facility] [id number] [facility] 2018-06-06 02:13:00 2018-06-06 02:13:00 [facility] [id number] [facility] 2018-03-05 17:07:00 2018-03-05 17:07:00 [facility] [id number] [facility] 2018-03-05 17:03:00 2018-03-05 17:03:00 [facility] [id number] [facility] 2018-03-05 10:48:00 2018-03-05 10:48:00 [facility] [id number] [facility] 2018-02-25 10:45:00 2018-02-25 10:45:00 [facility] [id number] [facility] 2018-02-07 12:01:00 2018-02-07 12:01:00 [facility] [id number] [facility] 2017-10-01 13:45:00 2017-10-01 13:45:00 [facility] [id number] [facility] 2017-09-26 11:12:00 2017-09-26 11:12:00 [facility] [id number] [facility] 2017-09-04 11:15:00 2017-09-04 11:15:00 [facility] [id number] [facility] 2004-01-04 14:10:00 2004-01-06 16:32:00 Inpatient P ABHINAV CALERO MICHEL [facility] [id number] [facility] 2003-12-31 00:00:00 2003-12-31 23:59:00 Outpatient P CHEVY FLORES [facility] [id number] [facility] 2003-12-28 00:00:00 2003-12-28 23:59:00 Outpatient P ABHINAV CALERO MICHEL [facility] [id number] [facility] Notes Date/Time Note Provider Source 2022-09-20 15:59:54 PLbVCZHuvI0J8eFvOZkT tobWpBdzJGfep FL5le1apvSGihZ2kDib+omRYGdDqUD809 03-10-09T15:59:54 Submitted order for Cabe na Mala system to [place] [facility] through [employer]. [id number] encounter [id number]:00:24Telephon e encounter [id number]. 7.2.314264|[id number] for patient [id number] Cheikh Henao [address] JdonWglsecewiYrabtpsgcVHZN3877171 333KBFPCZQYYFNAWGFPRBZMWA8547-44- 10T16:00:241.2.840.794361.1.72.3. 15|1.2.840.784590.1.13.104.2.7.2. [id number] Leandra Henao SENIOR PENSIONS ADMINISTRATOR [facility] 2022-08-28 11:00:00 F5Muc59fG8bSEoOKdKjQ jDmj+S6KgB4ud 6Ae2diBmDkEQSGUWwFShZicqKOz4Gf209 02-09-17T11:00:00 Addended by: SAMARIA RUTHERFORD on: 09/03/2022 06:12 PM Modules accepted: Orders [id number] YzowbfoqLU2122-36-66E21:12:10Adde ndum DocumentTXT1.2.840.569983.1.13.10 4.2.7.2.342843|[id number] ble for patient oasa76011-1BjcyRELPYURTPG[address] QodzKeokihmfdWawericwlKBWY0908177 664KQALECDSFCQIKRUYOWNUDK3966-43- 24T18:12:101.2.840.492158.1.72.3. 15|1.2.840.142672.1.13.104.2.7.2. [id number] [facility] 2022-08-28 11:00:00 7Xhmpvr4cPBlj4mP2+zy Je/Oi3o6b4Y8A L2zlFDqMyiBjWBi7c7rgdDzdA9rtNfO16 02-09-171:00:00 Addended by: SAMARIA RUTHERFORD on: 09/20/2022 02:53 PM Modules accepted: Orders [id number] EcwriebgHW4624-79-79C40:53:37Adde ndum DocumentTXT1.2.840.076247.1.13.10 4.2.7.2.871626|[id number] [facility] [id number] Di[id number] 374ZYNAZQMKIBALWMOCOFJZJP5552-86- 10T14:53:371.2.840.624874.1.72.3. 15|1.2.840.388872.1.13.104.2.7.2. [id number] [facility]"
[2023-03-08] MEDS ORDERED: NA CHLORIDE 0.9% 1,000 ML ONE (15:52)
[2023-03-08 15:59] LABS: Absolute Lymphocytes (CBC) 2.2 K/uL (0.7-4.9); Hematocrit 32.5 % (36.0-45.0); Lymphocytes % 25.9 % (15.3-44.8); MCV 79.5 fL (80-100); MPV 8.2 fL (7.6-11.3); Platelets 245 thou/uL (152-406); RBC Red Blood Cell Count 4.09 M/uL (3.86-4.86); Specific Gravity 1.011 (1.005-1.030); Urine Bacteria Loaded /HPF (<20); Urine Bilirubin 1+ (Negative); Urine Blood 3+ (OVER) (Negative); Urine Clarity Extremely Turbid (Clear); Urine Color Dark-Brown (Yellow); Urine Glucose 4+ (Negative); Urine Mucus Slight /HPF (None Seen); Urine Protein 3+ (Negative); Urine RBC >50 /HPF (None Seen); Urine Urobilinogen 2+ (Normal)
[2023-03-08] MEDS ORDERED: ONDANSETRON 4 MG/2 ML VIAL ONE (16:10)
[2023-03-08] MEDS ORDERED: KETOROLAC 30 MG/ML INJ ONE (16:10)
[2023-03-08 16:12] LABS: Albumin 3.1 g/dL (3.4-5.0); Bilirubin Total 0.9 mg/dL (0.2-1.0); Potassium 3.6 mEq/L (3.5-5.1)
--- NOTE | 2023-03-08 17:22 | RAD REPORT ---
EXAM DESCRIPTION: CT - Stone Protocol - 03/08/2023 5:10 pm CLINICAL HISTORY: Flank pain. FLANK PAIN COMPARISON: Stone Protocol dated 08/15/2022 TECHNIQUE: Axial images were obtained without oral or IV contrast. Lack of contrast limits solid org an and vascular assessment. The xyfxl-go-vnvi spans the entirety of the system partially obscuring uppermost abdomen and lung bases. Coronal reformatted images were obtained and reviewed. All CT scans are performed using dose optimization technique as appropriate and may include automated exposure control or mA/KV adjustment according to patient size. FINDINGS: The lower lung jain are clear. Cholecystectomy clips. Imaged portions of the liver and spleen show no suspicious findings on non-contrast imaging. The panc reas and adrenal glands are normal. No pathologic lymphadenopathy in the abdomen or pelvis. Horseshoe kidney. Punctate stone in the left moiety. No hydronephrosis. No bowel obstruction, free air, free fluid or abscess. Normal appendix noted. No significant bony abnormality. Significant urinary tract wall thickening. Air is seen in the wall. Air is also present ligament. IMPRESSION: Emphysematous cystitis. Punctate stone without hydronephrosis in a horseshoe kidney.
[2023-03-08] MEDS ORDERED: Meropenem 1000 MG/VIAL IV ONE (18:25)
[2023-03-08] MEDS ORDERED: NA CHLORIDE 0.9% 100 ML ONE (18:26)
--- NOTE | 2023-03-08 18:41 | EDPHYS ---
Physician Documentation [facility] Name: Tyra Stewart Age: 52 yrs Sex: Female : 1970 Arrival Date: 03/08/2023 Time: 15:09 Bed 19 Private MD: ED Physician Marty Stover HPI: 03/08 15:30 This 52 yrs old Female presents to ER via Ambulatory with complaints of cp Urinary Problem. 15:30 The patient presents with urinary symptoms, dysuria. Onset: The symptoms/episode cp began/occurred 1 week(s) ago. Associated signs and symptoms: Pertinent positives: back pain, Pertinent negatives: fever, vomiting. 15:30 Severity of symptoms: in the emergency department the symptoms are unchanged, despite cp home interventions. Historical: - Allergies: 15:19 Ciprofloxacin; mb9 15:19 piperacillin; mb9 15:19 Rocephin; mb9 15:19 tazobactam; mb9 15:19 Zosyn; mb9 - PMHx: 15:19 Anxiety; Diabetes - IDDM; Hypertension; kidney failure; legally blind; PE in right lung;mb9 - PSHx: 15:19 section; Cholecystectomy; mb9 - Immunization history:: Adult Immunizations up to date. - Social history:: Smoking status: Patient denies any tobacco usage or history of. ROS: 15:33 : Positive for urinary symptoms, cp 15:33 Constitutional: Negative for fever, poor PO intake, cp 15:33 Abdomen/GI: Positive for abdominal pain, Negative for vomiting, diarrhea, constipation, 15:33 Back: Positive for pain at rest, 15:33 Neuro: Negative for dizziness, weakness, 15:33 All other systems are negative, Exam: 15:37 Constitutional: The patient appears in no acute distress, alert, awake, cp non-diaphoretic, non-toxic, well developed, well nourished, 15:37 Head/Face: Normocephalic, atraumatic. cp 15:37 Eyes: Periorbital structures: appear normal, Conjunctiva: normal, no exudate, no injection, Sclera: no appreciated abnormality, Lids and lashes: appear normal, bilaterally, 15:37 ENT: External ear(s): are unremarkable, Nose: is normal, Mouth: Lips: moist, Oral mucosa: pink and intact, moist, Posterior pharynx: Airway: no evidence of obstruction, patent, 15:37 Neck: ROM/movement: is normal, is supple, without pain, no range of motions limitations, 15:37 Chest/axilla: Inspection: normal, 15:37 Cardiovascular: Rate: normal, Rhythm: regular, 15:37 Respiratory: the patient does not display signs of respiratory distress, Respirations: normal, no use of accessory muscles, no retractions, labored breathing, is not present, Breath sounds: are clear throughout, no decreased breath sounds, no stridor, no wheezing, 15:37 Abdomen/GI: Inspection: abdomen appears normal, Bowel sounds: active, all quadrants, Palpation: soft, in all quadrants, moderate abdominal tenderness, in the suprapubic area, rebound tenderness, is not appreciated, involuntary guarding, is not appreciated, 15:37 Back: CVA tenderness, that is mild, is noted bilaterally, 15:37 Skin: cellulitis, is not appreciated, no rash present. 15:37 Neuro: Orientation: to person, place \T\ time. Mentation: is normal, Motor: moves all fours, strength is normal, Sensation: is normal, Vital Signs: 15:18 BP 153 / 94; Pulse 95; Resp 16; Temp 97.4; Pulse Ox 100% ; Weight 65.77 kg; Height 5 mb9 ft. 4 in. ; 17:31 BP 168 / 89; Pulse 73; Resp 16; Pulse Ox 98% ; bp 18:30 BP 160 / 90; Pulse 76; Resp 16; Pulse Ox 97% ; bp 19:10 BP 144 / 76; Pulse 75; Resp 18 S; Pulse Ox 98% on R/A; lg3 15:18 Body Mass Index 24.89 (65.77 kg, 162.56 cm) mb9 MDM: 15:15 Patient medically screened. cp 18:00 Differential diagnosis: urinary tract infection, pyelonephritis, sepsis. cp 18:25 Data reviewed: vital signs, nurses notes, lab test result(s), radiologic studies, CT cp scan. 18:25 Management of patient was discussed with the following: Hospitalist: DR Stone will cp admit after discussion. I considered the following discharge prescriptions or medication management in the emergency department Medications were administered in the Emergency Department. See MAR. Care significantly affected by the following chronic conditions: Diabetes, Hypertension. Counseling: I had a detailed discussion with the patient and/or guardian regarding the historical points, exam findings, and any diagnostic results supporting the discharge/admit diagnosis, lab results, radiology results. Response to treatment: the patient's symptoms have mildly improved after treatment. 03/08 15:22 Order name: CBC with Diff; Complete Time: 16:33 03/08 16:45 Interpretation: Normal except: HGB 11.0; HCT 32.5; MCV 79.5; MCH 26.8. 03/08 15:22 Order name: CMP; Complete Time: 16:33 03/08 16:34 Interpretation: Normal except: GLUC 256; BUN 27; CRE 1.91; GFR 31; ALB 3.1; GLOB 4.9; cp A/G 0.6. 03/08 15:22 Order name: Lipase; Complete Time: 16:33 03/08 15:22 Order name: Urinalysis w/ reflexes; Complete Time: 16:33 03/08 16:34 Interpretation: Reviewed. 03/08 16:02 Order name: Urine Culture [facility] 03/08 17:28 Order name: Lactate w/ 2H reflex if indic.; Complete Time: 18:56 03/08 17:28 Order name: Blood Culture Adult (2); Complete Time: 20:42 03/08 20:12 Order name: Urinalysis w/ reflexes [facility] 03/08 20:12 Order name: CBC with Automated Diff [facility] 03/08 20:12 Order name: CBC with Automated Diff; Complete Time: 20:42 [facility] 03/08 20:12 Order name: Comprehensive Metabolic Panel [facility] 03/08 20:12 Order name: Comprehensive Metabolic Panel; Complete Time: 20:42 [facility] 03/08 20:21 Order name: Ferritin; Complete Time: 20:42 [facility] 03/08 20:21 Order name: Iron [facility] 03/08 20:21 Order name: Transferrin Sat/Iron Binding; Complete Time: 20:42 [facility] 03/08 20:21 Order name: Vitamin B12 Level; Complete Time: 20:42 [facility] 03/08 20:58 Order name: Glucose, Ancillary Testing; Complete Time: 20:42 [facility] 03/08 16:33 Order name: CT Stone Protocol; Complete Time: 17:26 03/08 17:26 Interpretation: Report reviewed. cp 03/08 15:22 Order name: IV Saline Lock; Complete Time: 15:49 cp 03/08 15:22 Order name: Labs collected and sent; Complete Time: 15:49 cp Administered Medications: 16:02 Drug: NS 0.9% IV 1000 ml IV at 1000 ml/hr Per protocol; 1000 mL bolus Route: IV; Rate: bp 1000 ml/hr; Site: right antecubital; 19:59 Follow up: Response: No adverse reaction; IV Status: Completed infusion; IV Intake: lg3 1000ml 16:14 Drug: Ondansetron IVP 4 mg IVP once; over 2 minutes Route: IVP; Site: right antecubital;bp 18:47 Follow up: Response: No adverse reaction bp 16:14 Drug: Ketorolac IVP 10 mg 10 mg IVP once Route: IVP; Site: right antecubital; bp 18:47 Follow up: Response: No adverse reaction bp 18:46 Drug: Meropenem IV 1 grams IV at calculated rate once; (mix in NS 100 mL) Route: IV; bp Rate: calculated rate; Site: right antecubital; 19:59 Follow up: Response: No adverse reaction; IV Status: Completed infusion; IV Intake: lg3 100ml Disposition Summary: 03/08/23 18:40 Hospitalization Ordered Notes: Hospitalization Status: Inpatient Admission cp Provider: Clover Stone cp [facility] cp Condition: Stable cp Problem: new cp Symptoms: have improved cp Bed/Room Type: Standard Room Assignment: 204(03/08/23 20:15) ty Diagnosis - Unspecified kidney failure cp - Acute cystitis cp Forms: - Medication Reconciliation Form cp - SBAR form cp - Leadership Thank You Letter cp Addendum: 03/12/2023 02:50 Co-signature as Attending Physician, Marty Stover MD I agree with the assessment s p4 and plan of care. I reviewed the patient's care provided by the Advanced Practice Provider and agree with the diagnosis and treatment plan. Signatures: Dispatcher [employer] EDMS Silvestre Navarro PA PA cp Peltier, Brian, RN RN Vero Krishna RN RN mb9 Marty Stover MD MD sp4 Clover Stone MD MD cu Virgen, Deandra Park RN lg3 Corrections: (The following items were deleted from the chart) 03/08 20:15 18:40 cp ty 03/09 20:43 03/08 18:25 Management of patient was discussed with the following: Hospitalist: DR jennifer Patterson will admit after discussion. cp
--- NOTE | 2023-03-08 18:41 | ER ---
Nurse's Notes [facility] Name: Tyra Stewart Age: 52 yrs Sex: Female : 1970 Arrival Date: 03/08/2023 Time: 15:09 Bed 19 Private MD: Diagnosis: Unspecified kidney failure;Acute cystitis Presentation: 03/08 15:18 Chief complaint: Patient states: "I've had N/V, burning with urination, and back pain mb9 since Saturday.". Coronavirus screen: Vaccine status: Patient reports receiving the 2nd dose of the covid vaccine. Ebola Screen: No symptoms or risks identified at this time. Initial Sepsis Screen: Does the patient meet any 2 criteria? No. Patient's initial sepsis screen is negative. Does the patient have a suspected source of infection? No. Patient's initial sepsis screen is negative. Risk Assessment: Do you want to hurt yourself or someone else? Patient reports no desire to harm self or others. Onset of symptoms was March 08, 2023. 15:18 Method Of Arrival: Ambulatory mb9 15:18 Acuity: TASHI 3 mb9 Triage Assessment: 15:19 General: Appears in no apparent distress. Behavior is calm, cooperative. Pain: mb9 Complains of pain in back. Neuro: Boothe Agitation-Sedation Scale (RASS): 0 - Alert and Calm Level of Consciousness is awake, alert, obeys commands, Oriented to person, place, time, situation, Appropriate for age. GI: Reports nausea, vomiting. : Reports burning with urination. Historical: - Allergies: 15:19 Ciprofloxacin; mb9 15:19 piperacillin; mb9 15:19 Rocephin; mb9 15:19 tazobactam; mb9 15:19 Zosyn; mb9 - PMHx: 15:19 Anxiety; Diabetes - IDDM; Hypertension; kidney failure; legally blind; PE in right lung;mb9 - PSHx: 15:19 section; Cholecystectomy; mb9 - Immunization history:: Adult Immunizations up to date. - Social history:: Smoking status: Patient denies any tobacco usage or history of. Screenin:10 [facility] ED Fall Risk Assessment (Adult) History of falling in the last 3 months, lg3 including since admission No falls in past 3 months (0 pts). Abuse screen: Denies threats or abuse. Denies injuries from another. Nutritional screening: No deficits noted. Tuberculosis screening: No symptoms or risk factors identified. Assessment: 19:10 General: Appears in no apparent distress. comfortable, Behavior is calm, cooperative. lg3 Pain: Denies pain. Neuro: No deficits noted. Boothe Agitation-Sedation Scale (RASS): 0 - Alert and Calm Level of Consciousness is awake, alert, obeys commands, Oriented to person, place, time, situation, Reports weakness. Cardiovascular: No deficits noted. Denies chest pain, shortness of breath, Capillary refill < 3 seconds Clubbing of nail beds is absent JVD is absent Patient's skin is warm and dry. Respiratory: No deficits noted. Airway is patent Respiratory effort is even, unlabored, Respiratory pattern is regular, symmetrical. GI: No deficits noted. Abdomen is round non-distended. : Reports cramping, urinary frequency. EENT: No deficits noted. No signs and/or symptoms were reported regarding the EENT system. Derm: No deficits noted. No signs and/or symptoms reported regarding the dermatologic system. Skin is intact, is healthy with good turgor, Skin is dry, Skin is normal, Skin temperature is warm. Musculoskeletal: No deficits noted. No signs and/or symptoms reported regarding the musculoskeletal system. Circulation, motion, and sensation intact. Range of motion: intact in all extremities. 20:22 General: attempted to call report. nurse not available . lg3 Vital Signs: 15:18 BP 153 / 94; Pulse 95; Resp 16; Temp 97.4; Pulse Ox 100% ; Weight 65.77 kg; Height 5 mb9 ft. 4 in. ; 17:31 BP 168 / 89; Pulse 73; Resp 16; Pulse Ox 98% ; bp 18:30 BP 160 / 90; Pulse 76; Resp 16; Pulse Ox 97% ; bp 19:10 BP 144 / 76; Pulse 75; Resp 18 S; Pulse Ox 98% on R/A; lg3 15:18 Body Mass Index 24.89 (65.77 kg, 162.56 cm) mb9 ED Course: 15:13 Patient arrived in ED. mr 15:14 Silvestre Navarro PA is PHCP. cp 15:14 Marty Stover MD is Attending Physician. cp 15:19 Triage completed. mb9 15:19 Arm band placed on. mb9 15:32 Adrian Youssef, RN is Primary Nurse. bp 15:50 Initial lab(s) drawn, by ED staff, sent to lab. Urine collected: clean catch specimen, jg11 junito colored. Inserted saline lock: 22 gauge in left antecubital area, using aseptic technique. Blood collected. 17:12 CT Stone Protocol In Process Unspecified. EDMS 18:02 First set of blood cultures drawn by ED staff, Second set of blood cultures drawn by ED jg11 staff. 18:40 Clover Stone MD is Hospitalizing Provider. cp 19:10 Patient has correct armband on for positive identification. Bed in low position. Call lg3 light in reach. Side rails up X 1. Report received from ROLAND Campbell. Client placed on continuous cardiac and pulse oximetry monitoring. NIBP monitoring applied. Door closed. Noise minimized. Warm blanket given. Family accompanied patient. 19:10 Patient maintains SpO2 saturation greater than 95% on room air. lg3 20:30 No provider procedures requiring assistance completed. Patient admitted, IV remains in lg3 place. Administered Medications: 16:02 Drug: NS 0.9% IV 1000 ml IV at 1000 ml/hr Per protocol; 1000 mL bolus Route: IV; Rate: bp 1000 ml/hr; Site: right antecubital; 19:59 Follow up: Response: No adverse reaction; IV Status: Completed infusion; IV Intake: lg3 1000ml 16:14 Drug: Ondansetron IVP 4 mg IVP once; over 2 minutes Route: IVP; Site: right antecubital;bp 18:47 Follow up: Response: No adverse reaction bp 16:14 Drug: Ketorolac IVP 10 mg 10 mg IVP once Route: IVP; Site: right antecubital; bp 18:47 Follow up: Response: No adverse reaction bp 18:46 Drug: Meropenem IV 1 grams IV at calculated rate once; (mix in NS 100 mL) Route: IV; bp Rate: calculated rate; Site: right antecubital; 19:59 Follow up: Response: No adverse reaction; IV Status: Completed infusion; IV Intake: lg3 100ml Medication: 19:10 VIS not applicable for this client. lg3 Intake: 19:59 IV: 100ml; Total: 100ml. lg3 19:59 IV: 1000ml; Total: 1100ml. lg3 Outcome: 18:40 Decision to Hospitalize by Provider. cp 20:30 Admitted to Med/surg accompanied by tech, via wheelchair, room 204, Report called to lg3 Rosalind 20:30 Condition: stable 20:30 Instructed on the need for admit, Demonstrated understanding of instructions, 21:03 Patient left the ED. lg3 Signatures: Dispatcher [employer] EDMS Vero Darling, Reg Reg mr Melanie, Silvestre, JITENDRA PA Adrian Blakely, RN RN Deandra Rubio RN RN lg3 Vero Huang, RN RN mb9 Diego Jimenez jg11
[2023-03-08] MEDS ORDERED: ONDANSETRON 4 MG/2 ML VIAL IV PRN (20:06)
[2023-03-08] MEDS ORDERED: ACETAMINOPHEN 325 MG TABLET PO PRN (20:06)
--- NOTE | 2023-03-08 20:27 | P.HP ---
Certification for Inpatient With expected LOS: >2 Midnights Patient will require the following post-hospital care: None Practitioner: I am a practitioner with admitting privileges, knowledge of patient current condition, hospital course, and medical plan of care. Services: Services provided to patient in accordance with Admission requirements found in Title 42 Section 412.3 of the Code of Federal Regulations Patient History Date of Service: 03/08/23 Reason for admission: Acute pyelonephritis History of Present Illness: 52-year-old female with a history of hypertension, CKD 3, history of PE on Eliquis and diabetes mellitus with peripheral neuropathy and retinopathy who presented to the ED with lower abdominal pain along with nausea and vomiting for the last 4 days. Patient has been having dysuria and urinary frequency for the last 10 days, she has been taking azo tablets without much improvement however 2 days ago her symptoms worsened. She also has loose diarrhea and loss of appetite but denied any fever or hematuria. On arrival to the ED her vital signs were within normal limits. Notable labs were H&H 11/32.5, MCV 79, glucose 256, BUN/Cr 27/1.91 which is around her baseline and UA indicates you have UTI. 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 Patient had received IV fluid bolus in the ED along with Toradol, Zofran and Merrem due to allergies to Cipro, Zosyn and Rocephin Allergies piperacillin [From Zosyn] Adverse Reaction (Severe, Verified 11/10/15 23:45) Nausea/Vomiting tazobactam [From Zosyn] Adverse Reaction (Severe, Verified 11/10/15 23:45) Nausea/Vomiting Home Medications: Gabapentin [Neurontin*] 100 mg PO TID 11/09/15 Insulin Glargine,Hum.rec.anlog [Angie Burns] 60 unit SQ BEDTIME 11/09/15 lisinopriL [Lisinopril] 5 mg PO BID 11/09/15 Atorvastatin Calcium 20 mg PO DAILY #30 tablet 01/01/19 Meclizine HCl [Antivert*] 25 mg PO TID #30 tab 01/01/19 Apixaban [Eliquis] 5 mg PO DAILY 01/02/19 Cyanocobalamin (Vitamin B-12) [Vitamin B-12] 1,000 mcg PO DAILY #90 capsule 01/02/19 Doxycycline Hyclate 100 mg PO DAILY #7 tablet 01/02/19 - Past Medical/Surgical History Diabetic: Yes -: Diabetes type 2(insulin-dependent) -: Retinopathy -: Blindness -: Neuropathy, peripheral -: HTN -: Clot on rt lung-09/28 -: C section - Family History Father -: Heart disease, Hypertension, Diabetes Mother -: Diabetes - Social History Alcohol use: No CD- Drugs: No Caffeine use: No Review of Systems 10-point ROS is otherwise unremarkable Physical Examination - Vital Signs Temperature: 97.4 F Blood Pressure: 168/89 Pulse: 73 Respirations: 16 Pulse Ox (%): 100 - Physical Exam General: Alert, In no apparent distress, Oriented x3 HEENT: Atraumatic, Other (Legal blindness) Neck: Supple, JVD not distended, No Thyromegaly Respiratory: Clear to auscultation bilaterally, Normal air movement Cardiovascular: No edema, Regular rate/rhythm, Normal S1 S2 Gastrointestinal: Normal bowel sounds, Soft and benign, No rebound, No guarding, Tenderness (Suprapubic) Musculoskeletal: No swelling, No erythema, No tenderness Integumentary: No rashes Neurological: Normal gait, Normal speech, Normal strength at 5/5 x4 extr, Sensation intact - Studies Laboratory Data (last 24 hrs) 03/08/23 03/08/23 15:45 15:45 WBC 8.50 Hgb 11.0 L Hct 32.5 L Plt Count 245 Sodium 136 Potassium 3.6 BUN 27 H Creatinine 1.91 H Glucose 256 H Total Bilirubin 0.9 AST 18 ALT 18 Alkaline Phosphatase 114 Lipase 35 Assessment and Plan - Plan Acute pyelonephritis CKD stage III History of PE Diabetes mellitus with retinopathy and neuropathy Hypertension Plan Continue meropenem and gentle hydration Follow-up blood and urine cultures Moderate to sliding scale insulin regular blood glucose check Resume long-acting insulin as appropriate Renal function is at baseline Gabapentin Takes lisinopril - Advance Directives Does patient have a Living Will: No Does patient have a Durable POA for Healthcare: No
[2023-03-08] MEDS: Meropenem 500 MG in NA CHLORIDE 0.9% 100 ML IV SCH (20:49)
[2023-03-08] MEDS: INSULIN REGULAR (HUMAN) 100 UNIT/ML SQ SCH (20:54)
[2023-03-08] MEDS: NA CHLORIDE 0.9% 1,000 ML IV SCH (20:55)
[2023-03-08 21:27] VITALS: BMI 23.3
[2023-03-09 03:05] LABS: Absolute Lymphocytes (CBC) 2.9 K/uL (0.7-4.9); Hematocrit 28.1 % (36.0-45.0); Lymphocytes % 39.3 % (15.3-44.8); MCV 79.5 fL (80-100); MPV 8.3 fL (7.6-11.3); Platelets 209 thou/uL (152-406); RBC Red Blood Cell Count 3.53 M/uL (3.86-4.86)
[2023-03-09 03:42] LABS: Albumin 2.6 g/dL (3.4-5.0); Bilirubin Total 0.6 mg/dL (0.2-1.0); Ferritin 126.9 ng/mL (8-388); Potassium 3.4 mEq/L (3.5-5.1); Protein, Total 6.4 g/dL (6.4-8.2)
[2023-03-09] MEDS: INSULIN REGULAR (HUMAN) 100 UNIT/ML SQ SCH ×4 (08:58→20:53)
[2023-03-09] MEDS: Meropenem 500 MG in NA CHLORIDE 0.9% 100 ML IV SCH ×2 (08:59→20:52)
[2023-03-09] MEDS ORDERED: ENOXAPARIN 40 MG/0.4 ML SQ SCH (09:00)
[2023-03-09] MEDS: NA CHLORIDE 0.9% 1,000 ML IV SCH (10:00)
--- NOTE | 2023-03-09 15:31 | P.PN ---
Subjective Date of Service: 03/09/23 Chief Complaint: Acute pyelonephritis Patient states she feels much better today. She is tolerating diet. No recorded fever since admission. Physical Examination - Vital Signs Temperature: 97.0 F Blood Pressure: 129/73 Pulse: 81 Respirations: 16 Pulse Ox (%): 97 - Studies Laboratory Data (last 24 hrs) 03/08/23 03/08/23 15:45 15:45 WBC 8.50 Hgb 11.0 L Hct 32.5 L Plt Count 245 Sodium 136 Potassium 3.6 BUN 27 H Creatinine 1.91 H Glucose 256 H Total Bilirubin 0.9 AST 18 ALT 18 Alkaline Phosphatase 114 Lipase 35 Assessment And Plan - Plan Physical Examination General: Alert and oriented x3, NAD, HEENT: Conjunctiva not pale, anicteric sclera Neck: Supple, no elevated JVD Heart: Heart sounds 1 and 2 normal, regular rhythm, normal rate, no pedal edema Lungs: Clear to auscultation bilaterally, adequate breath sounds bilaterally, no rhonchi or crackles. Abdomen: Soft, nondistended, nontender, normal bowel sounds. Extremities: No tenderness, no deformity Skin: Normal skin turgor, no rash, no nodules or ulcers. Neuro: No focal motor deficit. Normal speech. Psychiatry: Normal mood, no agitation. Diagnosis Acute pyelonephritis CKD stage III Diabetes mellitus with retinopathy and neuropathy Hypertension Plan Acute pyelonephritis Previous history of E. coli On IV meropenem Urine culture is growing gram-negative rods. Follow urine culture and adjust antibiotics based on culture sensitivity. Analgesics as needed. Follow blood cultures. Chronic kidney disease stage III History of horseshoe kidney. Renal function is at baseline. Monitor BMP. Diabetes mellitus type 2 Insulin sliding scale for glucose management until oral intake improves. Essential hypertension Patient is currently normotensive. Resume home dose lisinopril DVT prophylaxis: Heparin SQ
[2023-03-09] MEDS: HEPARIN 5000 UNIT/ML 1 ML VIAL SQ SCH (17:35)
[2023-03-09 22:13] VITALS: O2SAT 100
[2023-03-10] MEDS: HEPARIN 5000 UNIT/ML 1 ML VIAL SQ SCH ×2 (00:25→09:00)
[2023-03-10 04:14] LABS: Absolute Lymphocytes (CBC) 3.2 K/uL (0.7-4.9); Lymphocytes % 45.5 % (15.3-44.8); MCV 79.5 fL (80-100); MPV 8.4 fL (7.6-11.3); Platelets 231 thou/uL (152-406); RBC Red Blood Cell Count 3.27 M/uL (3.86-4.86)
[2023-03-10 04:32] LABS: Potassium 3.5 mEq/L (3.5-5.1)
[2023-03-10] MEDS: INSULIN REGULAR (HUMAN) 100 UNIT/ML SQ SCH ×2 (07:30→11:30)
[2023-03-10] MEDS ORDERED: lisinopriL 10 MG TAB PO SCH (09:00)
[2023-03-10] MEDS: Meropenem 500 MG in NA CHLORIDE 0.9% 100 ML IV SCH (10:33)
--- NOTE | 2023-03-10 11:38 | P.DS ---
Admission Date: 03/08/23 Discharge Date: 03/10/23 Disposition: ROUTINE DISCHARGE Discharge Condition: FAIR Reason for Admission: Acute pyelonephritis Brief History of Present Illness: 52-year-old female with a history of hypertension, CKD 3, history of PE on Eliquis and diabetes mellitus with peripheral neuropathy and retinopathy who presented to the ED with lower abdominal pain along with nausea and vomiting for 4 days. Patient reported dysuria and urinary frequency 10 days duration. She took azo tablets without much improvement. She also reported diarrhea and loss of appetite but denied any fever or hematuria. On arrival to the ED her vital signs were within normal limits. Notable labs were H&H 11/32.5, MCV 79, glucose 256, BUN/Cr 27/1.91 which is around her baseline and UA indicates she has UTI. 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 Patient had received IV fluid bolus in the ED along with Toradol, Zofran and Merrem and admitted for further management. Hospital Course: Patient admitted to the medical floor and the following medical problems addressed: Acute pyelonephritis/emphysematous cystitis Previous history of E. coli Patient treated with IV meropenem Urine culture is growing Klebsiella pneumonia sensitive to multiple antibiotics including fluoroquinolones. Patient reported resolution of her symptoms. Blood cultures yielded no growth. Patient discharged with oral ciprofloxacin. Chronic kidney disease stage III History of horseshoe kidney. Renal function is at baseline. Diabetes mellitus type 2 Managed with insulin sliding scale as inpatient. Home diabetic regimen resumed on discharge. Essential hypertension Resumed home dose lisinopril. Vital Signs/Physical Exam: Temp Pulse Resp BP Pulse Ox 97.9 F 84 18 129/66 97 03/10/23 08:00 03/10/23 08:00 03/10/23 08:00 03/10/23 08:00 03/10/23 08:00 General: Alert, In no apparent distress, Oriented x3 HEENT: Mucous membr. moist/pink Respiratory: Clear to auscultation bilaterally, Normal air movement Cardiovascular: No edema, Regular rate/rhythm, Normal S1 S2 Gastrointestinal: Normal bowel sounds, Soft and benign, Non-distended, No tenderness Musculoskeletal: No swelling Integumentary: No rashes, No cyanosis Neurological: Normal strength at 5/5 x4 extr Laboratory Data at Discharge: WBC 6.90 thou/uL (4.3-10.9) 03/10/23 03:09 Hgb 8.9 g/dL (12.0-15.0) L 03/10/23 03:09 Hct 26.0 % (36.0-45.0) L 03/10/23 03:09 Plt Count 231 thou/uL (152-406) 03/10/23 03:09 Sodium 141 mEq/L (136-145) 03/10/23 03:09 Potassium 3.5 mEq/L (3.5-5.1) 03/10/23 03:09 BUN 22 mg/dL (7-18) H 03/10/23 03:09 Creatinine 1.34 mg/dL (0.55-1.02) H 03/10/23 03:09 Glucose 120 mg/dL (74-106) H 03/10/23 03:09 Total Bilirubin 0.6 mg/dL (0.2-1.0) 03/09/23 02:37 AST 14 U/L (15-37) L 03/09/23 02:37 ALT 13 U/L (13-56) 03/09/23 02:37 Alkaline Phosphatase 88 U/L (45-117) D 03/09/23 02:37 Lipase 35 U/L (13-75) 03/08/23 15:45 Home Medications: Gabapentin [Neurontin*] 100 mg PO TID 11/09/15 Insulin Glargine,Hum.rec.anlog [Toujeo Solostar] 30 unit SQ BEDTIME 11/09/15 lisinopriL [Lisinopril] 5 mg PO DAILY 11/09/15 Ciprofloxacin HCl [Cipro] 500 mg PO BID #28 tab 03/10/23 New Medications: Ciprofloxacin HCl [Cipro] 500 mg PO BID #28 tab Physician Discharge Instructions: You were diagnosed with severe urinary tract infection and kidney infection. Your urine culture grew a specific bacteria called Klebsiella which is sensitive to multiple antibiotics including ciprofloxacin. You have been prescribed oral ciprofloxacin to take for 10 days. Please return to the emergency department or contact your PCP if you develop fever or continue to experience pain with urination. Diet: ADA Activity: Ad maximo Time spent managing pt's care (in minutes): 31
[2023-03-10 14:12] VITALS: BP 160/79; TEMP 97.4
== END 2023-03-10 13:32 | disposition home or self-care (01) | DRG 690 ==
LOC: ER 15:09 → 2ND 20:05
PROVIDERS: ADMIT Internal Medicine; ATTEND Internal Medicine
DX: N10 Acute pyelonephritis (principal); I12.9 Hypertensive chronic kidney disease with stage 1 through stage 4 chronic kidney disease, or unspecified chronic kidney disease; N18.30 Chronic kidney disease, stage 3 unspecified; E11.22 Type 2 diabetes mellitus with diabetic chronic kidney disease; E11.42 Type 2 diabetes mellitus with diabetic polyneuropathy; E11.319 Type 2 diabetes mellitus with unspecified diabetic retinopathy without macular edema; H54.8 Legal blindness, as defined in USA; B96.1 Klebsiella pneumoniae [K. pneumoniae] as the cause of diseases classified elsewhere; Z88.1 Allergy status to other antibiotic agents; Z79.4 Long term (current) use of insulin; Z90.49 Acquired absence of other specified parts of digestive tract; Z79.01 Long term (current) use of anticoagulants; Z79.899 Other long term (current) drug therapy; Z86.711 Personal history of pulmonary embolism
CPT/HCPCS: 36415; 74176; 76377; 80048; 80053; 81001; 82607; 82728; 82947; 83540; 83605; 83690; 84466; 85025; 87040; 87077; 87086; 87088; 87186; 96361; 96365; 96375; 99285; J1644; J1650; J1815; J2185; J2405; J7030

== ENCOUNTER 2023-05-13 10:42 | Emergency (ER) | payer BC, OTHER ==
--- OUTSIDE RECORDS SUMMARY | 2023-05-13 10:48 | XMS REPORT | Continuity of Care Document ---
Author Name Unknown Address [address] [facility] [address] [place] [address] [facility] thconnect Address [address] [facility] [place] [address] Care Team Providers Care Informatics Nurse Name Role Phone LEONOR ASHFORD Primary Care Physician Unavailab Althea Savage Attending Clinician Unavailable LORNA BOLIVAR Attending Clinician Unavailab le DOCTOR UNASSIGNED, NO NAME Attending Clinician U LEONOR Lou Attending Clinician Unavailable Lab, Ang - Db Attending Clinician Unavailable Leonor Romeo Attending Clinician [phone] [email or web address] Attending Clinician UnavailSAMARIA Moreira Attending Clinician Unavailable Samaria Rutherford Attending Clinician [phone] Doctor Unassigned, [place] Attending Clinician U [facility] Nephrology Attending Clinician [phone] ABHINAV CALERO Attending Clinician Unavailab ABHINAV Christine Attending Clinician Unavailab SANDRA Ashton Attending Clinician Unavailabl e LORNA BOLIVAR Admitting Clinician RICO Rosales Admitting Clinician Kiara soares [email or web address]_S Admitting Clinician LONG Mahan Admitting Clinician SANDRA Sinclair Admitting Clinician ABHINAV Osorio Admitting Clinician Michael crystal Payers Payer Name Policy Type Policy Number Effective Date Expirati on Date Source MEDICARE PART A \\T\\ B [id number] 2014 00:00:00 BCBS [facility] OUT OF STATE [id number] 2021 00:00:00 Problems Condition Name Condition Details Condition Category Status Onset Date Resolution Date Last Treatment Date Treating Clinician Comments Source Arthralgia of both hands Arthralgia of both hands Disease Active 2022-02 00:00: 00 [facility] Need for hepatitis C screening test Need for hepatitis C screening test Disease Active 2022-02 00:00: 00 [facility] Chronic kidney disease Chronic kidney disease Disease Active 08-28 00:00: 00 [facility] Depression Depression Disease Active 08-28 00:00: 00 [facility] Serous retinal detachment , unspecifie d eye Serous retinal detachment , unspecifie d eye Disease Active 08-28 00:00: 00 Overview: Formattin g of this note might be different from the original. RIGHT eye [facility] Neuropathy Neuropathy Disease Active 08-28 00:00: 00 [facility] HTN (hypertens ion) HTN (hypertens ion) Disease Active 07-18 00:00: 00 [facility] Diabetes Diabetes Disease Active 07-18 00:00: 00 [facility] Screening for colorectal cancer Screening for colorectal cancer Disease Active 07-18 00:00: 00 [facility] Essential hypertensi on Essential hypertensi on Disease Active 07-18 00:00: 00 [facility] Type 2 diabetes mellitus with chronic kidney disease, without long-term current use of insulin, unspecifie d CKD stage Type 2 diabetes mellitus with chronic kidney disease, without long-term current use of insulin, unspecifie d CKD stage Disease Active 07-18 00:00: 00 [facility] Diarrhea, unspecifie d type Diarrhea, unspecifie d type Disease Active 07-18 00:00: 00 [facility] Anxiety and depression Anxiety and depression Disease Active 07-18 00:00: 00 [facility] Trigger finger Trigger finger Problem Active [facility] [id number] Type 2 diabetes mellitus with hyperglyce stu Problem Active [facility] 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 Problem Active [facility] Legal blindness Legal blindness Problem Active [facility] Anemia Anemia Problem Active [facility] Vitamin D deficiency Vitamin D deficiency Problem Active [facility] Diabetes mellitus without complicati on Diabetes Problem Active [facility] Hyperlipid emia Hyperlipid emia Problem Active [facility] Premenopau braeden menorrhagi a Excessive bleeding in premenopau braeden period Problem Active [facility] Microalbum inuria Microalbum inuria Problem Active [facility] Chronic fatigue syndrome Chronic fatigue Problem Active [facility] [id number] Moderate episode of recurrent major depressive disorder Problem Active [facility] Chronic kidney disease stage 3 +5th digit eff 11/12/19*Ch ronic kidney disease, stage 3 Problem Active [facility] Diabetic polyneurop athy Secondary diabetes with peripheral neuropathy Problem Active [facility] [id number] 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, unspecifie d proliferat jewell retinopath y type Problem Active [facility] Allergies, Adverse Reactions, Alerts Allergy Name Allergy Type Status Severity Reaction(s) Onset Date Inactive Date Treating Clinician Comments Source NO KNOWN ALLERGIE S Drug Class Active [facility] Social History Social Habit Start Date Stop Date Quantity Comments Source History of Tobacco Use [facility] History of Social function 2022-08-28 00:00:00 2022-08-28 00:00:00 [facility] Tobacco use and exposure 2022-07-18 00:00:00 2022-07-18 00:00:00 Smokeless tobacco non-user [facility] Sex Assigned At 1970 00:00:00 1970 00:00:00 [facility] Smoking Status Start Date Stop Date Source Never smoked tobacco [facility] Medications Ordered Medication Name Filled Medication Name Start Date Stop Date Current Medication? Ordering Clinician Indication Dosage Frequency Signature (SIG) Comments Components Source citalopram 10 mg tablet 05-09 00:00: 00 Yes [id number] 10mg Take 1 tablet by mouth at bedtime. [facility] gabapentin 300 mg capsule 05-09 00:00: 00 Yes [id number] 300mg Take 1 capsule by mouth in the morning. [facility] semaglutide (OZEMPIC) 0.25 mg or 0.5 mg (2 mg/3 mL) PnIj 0 05-09 00:00: 00 Yes [id number] .25mg inject 0.25 mg under the skin weekly. [facility] citalopram 10 mg tablet 05-09 00:00: 00 Yes [id number] 10mg Take 1 tablet by mouth at bedtime. [facility] gabapentin 300 mg capsule 05-09 00:00: 00 Yes [id number] 300mg Take 1 capsule by mouth in the morning. [facility] semaglutide (OZEMPIC) 0.25 mg or 0.5 mg (2 mg/3 mL) PnIj 05-09 00:00: 00 Yes [id number] .25mg inject 0.25 mg under the skin weekly. [facility] citalopram 10 mg tablet 05-09 00:00: 00 Yes [id number] 10mg Take 1 tablet by mouth at bedtime. [facility] gabapentin 300 mg capsule 05-09 00:00: 00 Yes [id number] 300mg Take 1 capsule by mouth in the morning. [facility] semaglutide (OZEMPIC) 0.25 mg or 0.5 mg (2 mg/3 mL) PnIj 05-09 00:00: 00 Yes [id number] .25mg inject 0.25 mg under the skin weekly. [facility] citalopram 10 mg tablet 04-05 00:00: 00 Yes [id number] 10mg Take 1 tablet by mouth at bedtime. [facility] lisinopriL 10 mg tablet 04-05 00:00: 00 Yes [id number] 10mg Take 1 tablet by mouth in the morning. [facility] insulin glargine U-300 conc (TOUJEO MAX U-300 SOLOSTAR) 300 unit/mL (3 mL) In 04-05 00:00: 00 Yes [id number] 20U inject 20 Units under the skin at bedtime. [facility] citalopram 10 mg tablet 04-05 00:00: 00 Yes [id number] 10mg Take 1 tablet by mouth at bedtime. [facility] lisinopriL 10 mg tablet 04-05 00:00: 00 Yes [id number] 10mg Take 1 tablet by mouth in the morning. [facility] insulin glargine U-300 conc (TOUJEO MAX U-300 SOLOSTAR) 300 unit/mL (3 mL) In 04-05 00:00: 00 Yes [id number] 20U inject 20 Units under the skin at bedtime. [facility] citalopram 10 mg tablet 04-05 00:00: 00 Yes [id number] 10mg Take 1 tablet by mouth at bedtime. [facility] lisinopriL 10 mg tablet 04-05 00:00: 00 Yes [id number] 10mg Take 1 tablet by mouth in the morning. [facility] insulin glargine U-300 conc (TOUJEO MAX U-300 SOLOSTAR) 300 unit/mL (3 mL) In 04-05 00:00: 00 Yes [id number] 20U inject 20 Units under the skin at bedtime. [facility] citalopram 10 mg tablet 04-05 00:00: 00 Yes [id number] 10mg Take 1 tablet by mouth at bedtime. [facility] lisinopriL 10 mg tablet 04-05 00:00: 00 Yes [id number] 10mg Take 1 tablet by mouth in the morning. [facility] insulin glargine U-300 conc (TOUJEO MAX U-300 SOLOSTAR) 300 unit/mL (3 mL) In 04-05 00:00: 00 Yes [id number] 20U inject 20 Units under the skin at bedtime. [facility] citalopram 10 mg tablet 04-05 00:00: 00 Yes [id number] 10mg Take 1 tablet by mouth at bedtime. [facility] lisinopriL 10 mg tablet 04-05 00:00: 00 Yes [id number] 10mg Take 1 tablet by mouth in the morning. [facility] insulin glargine U-300 conc (TOUJEO MAX U-300 SOLOSTAR) 300 unit/mL (3 mL) In 04-05 00:00: 00 Yes [id number] 20U inject 20 Units under the skin at bedtime. [facility] lisinopriL 10 mg tablet 04-05 00:00: 00 Yes [id number] 10mg Take 1 tablet by mouth in the morning. [facility] insulin glargine U-300 conc (TOUJEO MAX U-300 SOLOSTAR) 300 unit/mL (3 mL) In 04-05 00:00: 00 Yes [id number] 20U inject 20 Units under the skin at bedtime. [facility] lisinopriL 10 mg tablet 04-05 00:00: 00 Yes [id number] 10mg Take 1 tablet by mouth in the morning. [facility] insulin glargine U-300 conc (TOUJEO MAX U-300 SOLOSTAR) 300 unit/mL (3 mL) In 04-05 00:00: 00 Yes [id number] 20U inject 20 Units under the skin at bedtime. [facility] lisinopriL 10 mg tablet 0 -23 00:00: 00 Yes [id number] 10mg Take 1 tablet by mouth in the morning. [facility] insulin glargine U-300 conc (TOUJEO MAX U-300 SOLOSTAR) 300 unit/mL (3 mL) In 04-05 00:00: 00 Yes [id number] 20U inject 20 Units under the skin at bedtime. [facility] citalopram 10 mg tablet 2023-0 23 00:00: 00 05-09 00:00 :00 No [id number] 10mg Take 1 tablet by mouth at bedtime. [facility] citalopram 10 mg tablet 2023-0 23 00:00: 00 05-09 00:00 :00 No [id number] 10mg Take 1 tablet by mouth at bedtime. [facility] citalopram 10 mg tablet 0 2-15 00:00: 00 Yes [id number] 10mg Take 1 tablet by mouth at bedtime. [facility] citalopram 10 mg tablet 2023-0 2-15 00:00: 00 04-05 00:00 :00 No [id number] 10mg Take 1 tablet by mouth at bedtime. [facility] citalopram 10 mg tablet 2023-0 2-15 00:00: 00 04-05 00:00 :00 No [id number] 10mg Take 1 tablet by mouth at bedtime. [facility] citalopram 10 mg tablet 2023-0 2-15 00:00: 00 03-28 00:00 :00 No [id number] 10mg Take 1 tablet by mouth at bedtime. [facility] citalopram 10 mg tablet 2-15 00:00: 00 15 00:00 :00 No [id number] 10mg Take 1 tablet by mouth at bedtime. [facility] acetaminoph en (TYLENOL ARTHRITIS PAIN) 650 mg CR tablet 2022-02 0 00:00: 00 Yes [id number] 650mg Take 1 tablet by mouth every 8 (eight) hours as needed for Pain. [facility] acetaminoph en (TYLENOL ARTHRITIS PAIN) 650 mg CR tablet 2022-02 0 00:00: 00 Yes [id number] 650mg Take 1 tablet by mouth every 8 (eight) hours as needed for Pain. [facility] acetaminoph en (TYLENOL ARTHRITIS PAIN) 650 mg CR tablet 2022-02 0 00:00: 00 Yes [id number] 650mg Take 1 tablet by mouth every 8 (eight) hours as needed for Pain. [facility] acetaminoph en (TYLENOL ARTHRITIS PAIN) 650 mg CR tablet 2022-02 00:00: 00 Yes [id number] 650mg Take 1 tablet by mouth every 8 (eight) hours as needed for Pain. [facility] acetaminoph en (TYLENOL ARTHRITIS PAIN) 650 mg CR tablet 2022-02 0 00:00: 00 Yes [id number] 650mg Take 1 tablet by mouth every 8 (eight) hours as needed for Pain. [facility] acetaminoph en (TYLENOL ARTHRITIS PAIN) 650 mg CR tablet 2022-02 0 00:00: 00 Yes [id number] 650mg Take 1 tablet by mouth every 8 (eight) hours as needed for Pain. [facility] acetaminoph en (TYLENOL ARTHRITIS PAIN) 650 mg CR tablet 2022-02 0 00:00: 00 Yes [id number] 650mg Take 1 tablet by mouth every 8 (eight) hours as needed for Pain. [facility] acetaminoph en (TYLENOL ARTHRITIS PAIN) 650 mg CR tablet 2022-02 0 00:00: 00 Yes [id number] 650mg Take 1 tablet by mouth every 8 (eight) hours as needed for Pain. [facility] acetaminoph en (TYLENOL ARTHRITIS PAIN) 650 mg CR tablet 2022-02 010 00:00: 00 Yes [id number] 650mg Take 1 tablet by mouth every 8 (eight) hours as needed for Pain. [facility] acetaminoph en (TYLENOL ARTHRITIS PAIN) 650 mg CR tablet 2022-02 010 00:00: 00 Yes [id number] 650mg Take 1 tablet by mouth every 8 (eight) hours as needed for Pain. [facility] acetaminoph en (TYLENOL ARTHRITIS PAIN) 650 mg CR tablet 2022-02 0 00:00: 00 Yes [id number] 650mg Take 1 tablet by mouth every 8 (eight) hours as needed for Pain. [facility] acetaminoph en (TYLENOL ARTHRITIS PAIN) 650 mg CR tablet 2022-02 0 00:00: 00 Yes [id number] 650mg Take 1 tablet by mouth every 8 (eight) hours as needed for Pain. [facility] acetaminoph en (TYLENOL ARTHRITIS PAIN) 650 mg CR tablet 2022-02 0 00:00: 00 Yes [id number] 650mg Take 1 tablet by mouth every 8 (eight) hours as needed for Pain. [facility] acetaminoph en (TYLENOL ARTHRITIS PAIN) 650 mg CR tablet 2022-02 0 00:00: 00 Yes [id number] 650mg Take 1 tablet by mouth every 8 (eight) hours as needed for Pain. [facility] lisinopriL 10 mg tablet 2022-02 0- 00:00: 00 Yes [id number] 10mg Take 1 tablet by mouth in the morning. [facility] lisinopriL 10 mg tablet 2022-02 0- 00:00: 00 Yes [id number] 10mg Take 1 tablet by mouth in the morning. [facility] lisinopriL 10 mg tablet 2022-02 0- 00:00: 00 Yes [id number] 10mg Take 1 tablet by mouth in the morning. [facility] lisinopriL 10 mg tablet 2022-02 0-09 00:00: 00 Yes [id number] 10mg Take 1 tablet by mouth in the morning. [facility] lisinopriL 10 mg tablet 2022-02 0 00:00: 00 Yes [id number] 10mg Take 1 tablet by mouth in the morning. [facility] lisinopriL 10 mg tablet 2022-02 0 00:00: 00 Yes [id number] 10mg Take 1 tablet by mouth in the morning. [facility] lisinopriL 10 mg tablet 2022-02 0 00:00: 00 Yes [id number] 10mg Take 1 tablet by mouth in the morning. [facility] lisinopriL 10 mg tablet 2022-02 0 00:00: 00 Yes [id number] 10mg Take 1 tablet by mouth in the morning. [facility] lisinopriL 10 mg tablet 2022-02 0 00:00: 00 Yes [id number] 10mg Take 1 tablet by mouth in the morning. [facility] lisinopriL 10 mg tablet 2022-02 0 00:00: 00 Yes [id number] 10mg Take 1 tablet by mouth in the morning. [facility] lisinopriL 10 mg tablet 2022-02 0 00:00: 00 04-05 00:00 :00 No [id number] 10mg Take 1 tablet by mouth in the morning. [facility] lisinopriL 10 mg tablet 2022-02 0 00:00: 00 04-05 00:00 :00 No [id number] 10mg Take 1 tablet by mouth in the morning. [facility] ibuprofen 600 mg tablet 2022-02 0 00:00: 00 11-19 00:00 :00 No [id number] 600mg Take 1 tablet by mouth every 6 (six) hours as needed for Temp > 38.5 C for up to 14 days. [facility] ibuprofen 600 mg tablet 2022-02 0- 00:00: 00 11-19 00:00 :00 No [id number] 600mg Take 1 tablet by mouth every 6 (six) hours as needed for Temp > 38.5 C for up to 14 days. [facility] flash glucose sensor (FREESTYLE SULEIMAN 2 SENSOR) Kit 09-20 00:00: 00 Yes [id number] 1{each} inject 1 Each under the skin every 14 (fourteen) days. Use as directed to check blood sugar 3x a day for diagnosis E11.65 [facility] flash glucose sensor (FREESTYLE SULEIMAN 2 SENSOR) Kit 09-20 00:00: 00 Yes [id number] 1{each} inject 1 Each under the skin every 14 (fourteen) days. Use as directed to check blood sugar 3x a day for diagnosis E11.65 [facility] flash glucose sensor (FREESTYLE SULEIMAN 2 SENSOR) Kit 09-20 00:00: 00 Yes [id number] 1{each} inject 1 Each under the skin every 14 (fourteen) days. Use as directed to check blood sugar 3x a day for diagnosis E11.65 [facility] flash glucose sensor (FREESTYLE SULEIMAN 2 SENSOR) Kit 09-20 00:00: 00 Yes [id number] 1{each} inject 1 Each under the skin every 14 (fourteen) days. Use as directed to check blood sugar 3x a day for diagnosis E11.65 [facility] flash glucose sensor (FREESTYLE SULEIMAN 2 SENSOR) Kit 09-20 00:00: 00 Yes [id number] 1{each} inject 1 Each under the skin every 14 (fourteen) days. Use as directed to check blood sugar 3x a day for diagnosis E11.65 [facility] flash glucose sensor (FREESTYLE SULEIMAN 2 SENSOR) Kit 8 00:00: 00 Yes [id number] 1{each} inject 1 Each under the skin every 14 (fourteen) days. Use as directed to check blood sugar 3x a day for diagnosis E11.65 [facility] flash glucose sensor (FREESTYLE SULEIMAN 2 SENSOR) Kit 8 00:00: 00 Yes [id number] 1{each} inject 1 Each under the skin every 14 (fourteen) days. Use as directed to check blood sugar 3x a day for diagnosis E11.65 [facility] flash glucose sensor (FREESTYLE SULEIMAN 2 SENSOR) Kit 0 8-10 00:00: 00 Yes [id number] 1{each} inject 1 Each under the skin every 14 (fourteen) days. Use as directed to check blood sugar 3x a day for diagnosis E11.65 [facility] flash glucose sensor (FREESTYLE SULEIMAN 2 SENSOR) Kit 0 8-10 00:00: 00 Yes [id number] 1{each} inject 1 Each under the skin every 14 (fourteen) days. Use as directed to check blood sugar 3x a day for diagnosis E11.65 [facility] flash glucose sensor (FREESTYLE SULEIMAN 2 SENSOR) Kit 0 8-10 00:00: 00 Yes [id number] 1{each} inject 1 Each under the skin every 14 (fourteen) days. Use as directed to check blood sugar 3x a day for diagnosis E11.65 [facility] flash glucose sensor (FREESTYLE SULEIMAN 2 SENSOR) Kit 0 8-10 00:00: 00 Yes [id number] 1{each} inject 1 Each under the skin every 14 (fourteen) days. Use as directed to check blood sugar 3x a day for diagnosis E11.65 [facility] flash glucose sensor (FREESTYLE SULEIMAN 2 SENSOR) Kit 0 8-10 00:00: 00 Yes [id number] 1{each} inject 1 Each under the skin every 14 (fourteen) days. Use as directed to check blood sugar 3x a day for diagnosis E11.65 [facility] flash glucose sensor (FREESTYLE SULEIMAN 2 SENSOR) Kit 0 8-10 00:00: 00 Yes [id number] 1{each} inject 1 Each under the skin every 14 (fourteen) days. Use as directed to check blood sugar 3x a day for diagnosis E11.65 [facility] flash glucose sensor (FREESTYLE SULEIMAN 2 SENSOR) Kit 2022-0 8-10 00:00: 00 Yes [id number] 1{each} inject 1 Each under the skin every 14 (fourteen) days. Use as directed to check blood sugar 3x a day for diagnosis E11.65 [facility] flash glucose sensor (FREESTYLE SULEIMAN 2 SENSOR) Kit 0 8-10 00:00: 00 Yes [id number] 1{each} inject 1 Each under the skin every 14 (fourteen) days. Use as directed to check blood sugar 3x a day for diagnosis E11.65 [facility] flash glucose sensor (FREESTYLE SULEIMAN 2 SENSOR) Kit 0 8-10 00:00: 00 Yes [id number] 1{each} inject 1 Each under the skin every 14 (fourteen) days. Use as directed to check blood sugar 3x a day for diagnosis E11.65 [facility] flash glucose sensor (FREESTYLE SULEIMAN 2 SENSOR) Kit 810 00:00: 00 Yes [id number] 1{each} inject 1 Each under the skin every 14 (fourteen) days. Use as directed to check blood sugar 3x a day for diagnosis E11.65 [facility] flash glucose sensor (FREESTYLE SULIEMAN 2 SENSOR) Kit 810 00:00: 00 Yes [id number] 1{each} inject 1 Each under the skin every 14 (fourteen) days. Use as directed to check blood sugar 3x a day for diagnosis E11.65 [facility] flash glucose sensor (FREESTYLE SULEIMAN 2 SENSOR) Kit 810 00:00: 00 Yes [id number] 1{each} inject 1 Each under the skin every 14 (fourteen) days. Use as directed to check blood sugar 3x a day for diagnosis E11.65 [facility] flash glucose sensor (FREESTYLE SULEIMAN 2 SENSOR) Kit 8-10 00:00: 00 Yes [id number] 1{each} inject 1 Each under the skin every 14 (fourteen) days. Use as directed to check blood sugar 3x a day for diagnosis E11.65 [facility] flash glucose sensor (FREESTYLE SULEIMAN 2 SENSOR) Kit 8-10 00:00: 00 Yes [id number] 1{each} inject 1 Each under the skin every 14 (fourteen) days. Use as directed to check blood sugar 3x a day for diagnosis E11.65 [facility] flash glucose sensor (FREESTYLE SULEIMAN 2 SENSOR) Kit 2023-0 8-10 00:00: 00 Yes [id number] 1{each} inject 1 Each under the skin every 14 (fourteen) days. Use as directed to check blood sugar 3x a day for diagnosis E11.65 [facility] (FREESTYLE SULEIMAN 3 SENSOR) Tricia 09-03 00:00: 00 Yes [id number] Use as directed [facility] Blood-Gluco se Sensor (FREESTYLE SULEIMAN 3 SENSOR) 09-03 00:00: 00 Yes [id number] Use as directed [facility] ity [facility] Blood-Gluco se Sensor (FREESTYLE SULEIMAN 3 SENSOR) 09-03 00:00: 00 Yes [id number] Use as directed [facility] Blood-Gluco [facility] Sensor (FREESTYLE SULEIMAN 3 SENSOR) 09-03 00:00: 00 Yes [id number] 1{each} inject 1 Each under the skin every 14 (fourteen) days. Use as directed to check blood sugar 3x a day for diagnosis E11.65 [facility] semaglutide (OZEMPIC) 0.25 mg or 0.5 mg (2 mg/3 mL) PnIj 0 09-03 00:00: 00 Yes [id number] Start 0.25 mg weekly dose for 4 weeks and then progress to 0.5mg weekly injection. [facility] ([facility]ZEMPIC) 0.25 mg or 0.5 mg (2 mg/3 mL) PnIj 0 09-03 00:00: 00 Yes [id number] Start 0.25 mg weekly dose for 4 weeks and then progress to 0.5mg weekly injection. [facility] ([facility]ZEMPIC) 0.25 mg or 0.5 mg (2 mg/3 mL) PnIj 0 09-03 00:00: 00 Yes [id number] Start 0.25 mg weekly dose for 4 weeks and then progress to 0.5mg weekly injection. [facility] Blood-Gluco [facility] Sensor (FREESTYLE SULEIMAN 3 SENSOR) Tricia 09-03 00:00: 00 Yes [id number] Use as directed [facility] ity [facility] Blood-Gluco se Sensor (FREESTYLE SULEIMAN 3 SENSOR) Tricia 09-03 00:00: 00 Yes [id number] 1{each} inject 1 Each under the skin every 14 (fourteen) days. Use as directed to check blood sugar 3x a day for diagnosis E11.65 [facility] semaglutide (OZEMPIC) 0.25 mg or 0.5 mg (2 mg/3 mL) PnIj 09-03 00:00: 00 Yes [id number] Start 0.25 mg weekly dose for 4 weeks and then progress to 0.5mg weekly injection. [facility] Blood-Gluco se Sensor (FREESTYLE SULEIMAN 3 SENSOR) Tricia 09-03 00:00: 00 Yes [id number] Use as directed [facility] Blood-Gluco se Sensor (FREESTYLE SULEIMAN 3 SENSOR) Tricia 09-03 00:00: 00 Yes [id number] 1{each} inject 1 Each under the skin every 14 (fourteen) days. Use as directed to check blood sugar 3x a day for diagnosis E11.65 [facility] semaglutide (OZEMPIC) 0.25 mg or 0.5 mg (2 mg/3 mL) PnIj 09-03 00:00: 00 Yes [id number] Start 0.25 mg weekly dose for 4 weeks and then progress to 0.5mg weekly injection. [facility] Blood-Gluco se Sensor (FREESTYLE SULEIMAN 3 SENSOR) Tricia 09-03 00:00: 00 Yes [id number] Use as directed [facility] Blood-Gluco se Sensor (FREESTYLE SULEIMAN 3 SENSOR) Tricia 09-03 00:00: 00 Yes [id number] 1{each} inject 1 Each under the skin every 14 (fourteen) days. Use as directed to check blood sugar 3x a day for diagnosis E11.65 [facility] semaglutide (OZEMPIC) 0.25 mg or 0.5 mg (2 mg/3 mL) PnIj 0 09-03 00:00: 00 Yes [id number] Start 0.25 mg weekly dose for 4 weeks and then progress to 0.5mg weekly injection. [facility] Blood-Gluco se Sensor (FREESTYLE SULEIMAN 3 SENSOR) Tricia 09-03 00:00: 00 Yes [id number] Use as directed [facility] Blood-Gluco se Sensor (FREESTYLE SULEIMAN 3 SENSOR) Tricia 09-03 00:00: 00 Yes [id number] 1{each} inject 1 Each under the skin every 14 (fourteen) days. Use as directed to check blood sugar 3x a day for diagnosis E11.65 [facility] semaglutide (OZEMPIC) 0.25 mg or 0.5 mg (2 mg/3 mL) PnIj 09-03 00:00: 00 Yes [id number] Start 0.25 mg weekly dose for 4 weeks and then progress to 0.5mg weekly injection. [facility] Blood-Gluco se Sensor (FREESTYLE SULEIMAN 3 SENSOR) Tricia 09-03 00:00: 00 Yes [id number] Use as directed [facility] Blood-Gluco se Sensor (FREESTYLE SULEIMAN 3 SENSOR) Tricia 09-03 00:00: 00 Yes [id number] 1{each} inject 1 Each under the skin every 14 (fourteen) days. Use as directed to check blood sugar 3x a day for diagnosis E11.65 [facility] semaglutide (OZEMPIC) 0.25 mg or 0.5 mg (2 mg/3 mL) PnIj 09-03 00:00: 00 Yes [id number] Start 0.25 mg weekly dose for 4 weeks and then progress to 0.5mg weekly injection. [facility] Blood-Gluco se Sensor (FREESTYLE SULEIMAN 3 SENSOR) Tricia 09-03 00:00: 00 Yes [id number] Use as directed [facility] Blood-Gluco se Sensor (FREESTYLE SULEIMAN 3 SENSOR) Tricia 09-03 00:00: 00 Yes [id number] 1{each} inject 1 Each under the skin every 14 (fourteen) days. Use as directed to check blood sugar 3x a day for diagnosis E11.65 [facility] semaglutide (OZEMPIC) 0.25 mg or 0.5 mg (2 mg/3 mL) PnIj 2022-0 09-03 00:00: 00 Yes [id number] Start 0.25 mg weekly dose for 4 weeks and then progress to 0.5mg weekly injection. [facility] Blood-Gluco se Sensor (FREESTYLE SULEIMAN 3 SENSOR) Tricia 09-03 00:00: 00 Yes [id number] Use as directed [facility] Blood-Gluco se Sensor (FREESTYLE SULEIMAN 3 SENSOR) 09-03 00:00: 00 Yes [id number] 1{each} inject 1 Each under the skin every 14 (fourteen) days. Use as directed to check blood sugar 3x a day for diagnosis E11.65 [facility] semaglutide (OZEMPIC) 0.25 mg or 0.5 mg (2 mg/3 mL) PnIj 09-03 00:00: 00 Yes [id number] Start 0.25 mg weekly dose for 4 weeks and then progress to 0.5mg weekly injection. [facility] Blood-Gluco se Sensor (FREESTYLE SULEIMAN 3 SENSOR) 09-03 00:00: 00 Yes [id number] Use as directed [facility] Blood-Gluco se Sensor (FREESTYLE SULEIMAN 3 SENSOR) 09-03 00:00: 00 Yes [id number] 1{each} inject 1 Each under the skin every 14 (fourteen) days. Use as directed to check blood sugar 3x a day for diagnosis E11.65 [facility] semaglutide (OZEMPIC) 0.25 mg or 0.5 mg (2 mg/3 mL) PnIj 2022-0 09-03 00:00: 00 Yes [id number] Start 0.25 mg weekly dose for 4 weeks and then progress to 0.5mg weekly injection. [facility] semaglutide (OZEMPIC) 0.25 mg or 0.5 mg (2 mg/3 mL) PnIj 3-0 09-03 00:00: 00 Yes [id number] Start 0.25 mg weekly dose for 4 weeks and then progress to 0.5mg weekly injection. [facility] semaglutide (OZEMPIC) 0.25 mg or 0.5 mg (2 mg/3 mL) PnIj 09-03 00:00: 00 Yes [id number] Start 0.25 mg weekly dose for 4 weeks and then progress to 0.5mg weekly injection. [facility] Blood-Gluco se Sensor (FREESTYLE SULEIMAN 3 SENSOR) Tricia 09-03 00:00: 00 Yes [id number] Use as directed [facility] Blood-Gluco se Sensor (FREESTYLE SULEIMAN 3 SENSOR) 09-03 00:00: 00 Yes [id number] 1{each} inject 1 Each under the skin every 14 (fourteen) days. Use as directed to check blood sugar 3x a day for diagnosis E11.65 [facility] semaglutide (OZEMPIC) 0.25 mg or 0.5 mg (2 mg/3 mL) Pn 09-03 00:00: 00 Yes [id number] Start 0.25 mg weekly dose for 4 weeks and then progress to 0.5mg weekly injection. [facility] Blood-Gluco se Sensor (FREESTYLE SULEIMAN 3 SENSOR) 09-03 00:00: 00 Yes [id number] Use as directed [facility] Blood-Gluco se Sensor (FREESTYLE SULEIMAN 3 SENSOR) 09-03 00:00: 00 Yes [id number] 1{each} inject 1 Each under the skin every 14 (fourteen) days. Use as directed to check blood sugar 3x a day for diagnosis E11.65 [facility] semaglutide (OZEMPIC) 0.25 mg or 0.5 mg (2 mg/3 mL) PnIj 09-03 00:00: 00 Yes [id number] Start 0.25 mg weekly dose for 4 weeks and then progress to 0.5mg weekly injection. [facility] Blood-Gluco se Sensor (FREESTYLE SULEIMAN 3 SENSOR) 09-03 00:00: 00 Yes [id number] Use as directed [facility] Blood-Gluco se Sensor (FREESTYLE SULEIMAN 3 SENSOR) 09-03 00:00: 00 Yes [id number] 1{each} inject 1 Each under the skin every 14 (fourteen) days. Use as directed to check blood sugar 3x a day for diagnosis E11.65 [facility]IC) 0.25 mg or 0.5 mg (2 mg/3 mL) PnIj 09-03 00:00: 00 Yes [id number] Start 0.25 mg weekly dose for 4 weeks and then progress to 0.5mg weekly injection. [facility] Blood-Gluco se Sensor (FREESTYLE SULEIMAN 3 SENSOR) Tricia 09-03 00:00: 00 Yes [id number] Use as directed [facility] Blood-Gluco se Sensor (FREESTYLE SULEIMAN 3 SENSOR) 09-03 00:00: 00 Yes [id number] 1{each} inject 1 Each under the skin every 14 (fourteen) days. Use as directed to check blood sugar 3x a day for diagnosis E11.65 [facility] semaglutide (OZEMPIC) 0.25 mg or 0.5 mg (2 mg/3 mL) PnIj 09-03 00:00: 00 Yes [id number] Start 0.25 mg weekly dose for 4 weeks and then progress to 0.5mg weekly injection. [facility] Blood-Gluco se Sensor (FREESTYLE SULEIMAN 3 SENSOR) 09-03 00:00: 00 Yes [id number] Use as directed [facility] Blood-Gluco se Sensor (FREESTYLE SULEIMAN 3 SENSOR) 09-03 00:00: 00 Yes [id number] 1{each} inject 1 Each under the skin every 14 (fourteen) days. Use as directed to check blood sugar 3x a day for diagnosis E11.65 [facility] ([facility]ZEMPIC) 0.25 mg or 0.5 mg (2 mg/3 mL) PnIj 09-03 00:00: 00 Yes [id number] Start 0.25 mg weekly dose for 4 weeks and then progress to 0.5mg weekly injection. [facility] Blood-Gluco se Sensor (FREESTYLE SULEIMAN 3 SENSOR) Tricia 09-03 00:00: 00 Yes [id number] Use as directed [facility] Blood-Gluco se Sensor (FREESTYLE SULEIMAN 3 SENSOR) Tricia 09-03 00:00: 00 Yes [id number] 1{each} inject 1 Each under the skin every 14 (fourteen) days. Use as directed to check blood sugar 3x a day for diagnosis E11.65 [facility] (OZEMPIC) 0.25 mg or 0.5 mg (2 mg/3 mL) PnIj 09-03 00:00: 00 Yes [id number] Start 0.25 mg weekly dose for 4 weeks and then progress to 0.5mg weekly injection. [facility] Blood-Gluco se Sensor (FREESTYLE SULEIMAN 3 SENSOR) 09-03 00:00: 00 Yes [id number] Use as directed [facility] Blood-Gluco se Sensor (FREESTYLE SULEIMAN 3 SENSOR) 09-03 00:00: 00 Yes [id number] 1{each} inject 1 Each under the skin every 14 (fourteen) days. Use as directed to check blood sugar 3x a day for diagnosis E11.65 [facility] semaglutide (OZEMPIC) 0.25 mg or 0.5 mg (2 mg/3 mL) PnIj 09-03 00:00: 00 Yes [id number] Start 0.25 mg weekly dose for 4 weeks and then progress to 0.5mg weekly injection. [facility] Blood-Gluco se Sensor (FREESTYLE SULEIMAN 3 SENSOR) Tricia 09-03 00:00: 00 Yes [id number] Use as directed [facility] Blood-Gluco se Sensor (FREESTYLE SULEIMAN 3 SENSOR) Tricia 09-03 00:00: 00 Yes [id number] 1{each} inject 1 Each under the skin every 14 (fourteen) days. Use as directed to check blood sugar 3x a day for diagnosis E11.65 [facility] semaglutide (OZEMPIC) 0.25 mg or 0.5 mg (2 mg/3 mL) PnIj 09-03 00:00: 00 Yes [id number] Start 0.25 mg weekly dose for 4 weeks and then progress to 0.5mg weekly injection. [facility] Blood-Gluco se Sensor (FREESTYLE SULEIMAN 3 SENSOR) Tricia 09-03 00:00: 00 Yes [id number] Use as directed [facility] Blood-Gluco se Sensor (FREESTYLE SULEIMAN 3 SENSOR) Tricia 09-03 00:00: 00 Yes [id number] 1{each} inject 1 Each under the skin every 14 (fourteen) days. Use as directed to check blood sugar 3x a day for diagnosis E11.65 [facility] Blood-Gluco se Sensor (FREESTYLE SULEIMAN 3 SENSOR) Tricia 09-03 00:00: 00 Yes [id number] Use as directed [facility] Blood-Gluco se Sensor (FREESTYLE SULEIMAN 3 SENSOR) Tricia 09-03 00:00: 00 Yes [id number] 1{each} inject 1 Each under the skin every 14 (fourteen) days. Use as directed to check blood sugar 3x a day for diagnosis E11.65 [facility] Blood-Gluco se Sensor (FREESTYLE SULEIMAN 3 SENSOR) Tricia 09-03 00:00: 00 Yes [id number] Use as directed [facility] Blood-Gluco se Sensor (FREESTYLE SULEIMAN 3 SENSOR) Tricia 09-03 00:00: 00 Yes [id number] 1{each} inject 1 Each under the skin every 14 (fourteen) days. Use as directed to check blood sugar 3x a day for diagnosis E11.65 [facility] semaglutide (OZEMPIC) 0.25 mg or 0.5 mg (2 mg/3 mL) PnIj 2022-0 09-03 00:00: 00 05-09 00:00 :00 No [id number] Start 0.25 mg weekly dose for 4 weeks and then progress to 0.5mg weekly injection. [facility] semaglutide (OZEMPIC) 0.25 mg or 0.5 mg (2 mg/3 mL) PnIj 2022-0 09-03 00:00: 00 05-09 00:00 :00 No [id number] Start 0.25 mg weekly dose for 4 weeks and then progress to 0.5mg weekly injection. [facility] Blood-Gluco se Sensor (FREESTYLE SULEIMAN 3 SENSOR) Tricia 08-28 00:00: 00 Yes [id number] 1{each} inject 1 Each under the skin every 14 (fourteen) days. Use as directed to check blood sugar 3x a day for diagnosis E11.65 [facility] gabapentin 300 mg capsule 08-28 00:00: 00 Yes [id number] 300mg Take 1 capsule by mouth in the morning. [facility] semaglutide (OZEMPIC) 0.25 mg or 0.5 mg (2 mg/3 mL) [facility] 08-28 00:00: 00 Yes [id number] Start 0.25 mg weekly dose for 4 weeks and then progress to 0.5mg weekly injection. [facility] Blood-Gluco se Sensor (FREESTYLE SULEIMAN 3 SENSOR) 08-28 00:00: 00 Yes [id number] 1{each} inject 1 Each under the skin every 14 (fourteen) days. Use as directed to check blood sugar 3x a day for diagnosis E11.65 [facility] gabapentin 300 mg capsule 08-28 00:00: 00 Yes [id number] 300mg Take 1 capsule by mouth in the morning. [facility] semaglutide (OZEMPIC) 0.25 mg or 0.5 mg (2 mg/3 mL) [facility] 08-28 00:00: 00 Yes [id number] Start 0.25 mg weekly dose for 4 weeks and then progress to 0.5mg weekly injection. [facility] Blood-Gluco se Sensor (FREESTYLE SULEIMAN 3 SENSOR) Tricia 08-28 00:00: 00 Yes [id number] 1{each} inject 1 Each under the skin every 14 (fourteen) days. Use as directed to check blood sugar 3x a day for diagnosis E11.65 [facility] gabapentin 300 mg capsule 08-28 00:00: 00 Yes [id number] 300mg Take 1 capsule by mouth in the morning. [facility] semaglutide (OZEMPIC) 0.25 mg or 0.5 mg (2 mg/3 mL) PnIj 2022-0 18 00:00: 00 Yes [id number] Start 0.25 mg weekly dose for 4 weeks and then progress to 0.5mg weekly injection. [facility] Blood-Gluco se Sensor (FREESTYLE SULEIMAN 3 SENSOR) Tricia 08-28 00:00: 00 Yes [id number] 1{each} inject 1 Each under the skin every 14 (fourteen) days. Use as directed to check blood sugar 3x a day for diagnosis E11.65 [facility] gabapentin 300 mg capsule 0 18 00:00: 00 Yes [id number] 300mg Take 1 capsule by mouth in the morning. [facility] semaglutide (OZEMPIC) 0.25 mg or 0.5 mg (2 mg/3 mL) [facility] 0 18 00:00: 00 Yes [id number] Start 0.25 mg weekly dose for 4 weeks and then progress to 0.5mg weekly injection. [facility] gabapentin 300 mg capsule 2022-0 08-28 00:00: 00 Yes [id number] 300mg Take 1 capsule by mouth in the morning. [facility] semaglutide (OZEMPIC) 0.25 mg or 0.5 mg (2 mg/3 mL) [facility] 0 08-28 00:00: 00 Yes [id number] Start 0.25 mg weekly dose for 4 weeks and then progress to 0.5mg weekly injection. [facility] gabapentin 300 mg capsule 2022-0 18 00:00: 00 Yes [id number] 300mg Take 1 capsule by mouth in the morning. [facility] gabapentin 300 mg capsule 2022-0 18 00:00: 00 Yes [id number] 300mg Take 1 capsule by mouth in the morning. [facility] gabapentin 300 mg capsule 3-0 18 00:00: 00 Yes [id number] 300mg Take 1 capsule by mouth in the morning. [facility] gabapentin 300 mg capsule 3-0 18 00:00: 00 Yes [id number] 300mg Take 1 capsule by mouth in the morning. [facility] gabapentin 300 mg capsule 2023-0 7-18 00:00: 00 Yes [id number] 300mg Take 1 capsule by mouth in the morning. [facility] gabapentin 300 mg capsule 2023-0 7-18 00:00: 00 Yes [id number] 300mg Take 1 capsule by mouth in the morning. [facility] gabapentin 300 mg capsule 2023-0 7-18 00:00: 00 Yes [id number] 300mg Take 1 capsule by mouth in the morning. [facility] gabapentin 300 mg capsule 2023-0 7-18 00:00: 00 Yes [id number] 300mg Take 1 capsule by mouth in the morning. [facility] gabapentin 300 mg capsule 2023-0 7-18 00:00: 00 Yes [id number] 300mg Take 1 capsule by mouth in the morning. [facility] gabapentin 300 mg capsule 2023-0 7-18 00:00: 00 Yes [id number] 300mg Take 1 capsule by mouth in the morning. [facility] gabapentin 300 mg capsule 2023-0 7-18 00:00: 00 Yes [id number] 300mg Take 1 capsule by mouth in the morning. [facility] gabapentin 300 mg capsule 2023-0 7-18 00:00: 00 Yes [id number] 300mg Take 1 capsule by mouth in the morning. [facility] gabapentin 300 mg capsule 2023-0 7-18 00:00: 00 Yes [id number] 300mg Take 1 capsule by mouth in the morning. [facility] gabapentin 300 mg capsule 2023-0 7-18 00:00: 00 Yes [id number] 300mg Take 1 capsule by mouth in the morning. [facility] gabapentin 300 mg capsule 2023-0 7-18 00:00: 00 Yes [id number] 300mg Take 1 capsule by mouth in the morning. [facility] gabapentin 300 mg capsule 2023-0 7-18 00:00: 00 Yes [id number] 300mg Take 1 capsule by mouth in the morning. [facility] gabapentin 300 mg capsule 2023-0 7-18 00:00: 00 Yes [id number] 300mg Take 1 capsule by mouth in the morning. [facility] gabapentin 300 mg capsule 2023-0 7-18 00:00: 00 Yes [id number] 300mg Take 1 capsule by mouth in the morning. [facility] gabapentin 300 mg capsule 2022-0 08-28 00:00: 00 Yes [id number] 300mg Take 1 capsule by mouth in the morning. [facility] gabapentin 300 mg capsule 2022-0 08-28 00:00: 00 Yes [id number] 300mg Take 1 capsule by mouth in the morning. [facility] gabapentin 300 mg capsule 2022-0 08-28 00:00: 00 Yes [id number] 300mg Take 1 capsule by mouth in the morning. [facility] gabapentin 300 mg capsule 2022-0 08-28 00:00: 00 05-09 00:00 :00 No [id number] 300mg Take 1 capsule by mouth in the morning. [facility] gabapentin 300 mg capsule 08-28 00:00: 00 05-09 00:00 :00 No [id number] 300mg Take 1 capsule by mouth in the morning. [facility] Blood-Gluco se Sensor (FREESTYLE SULEIMAN 3 SENSOR) Tricia 08-28 00:00: 00 09-03 00:00 :00 No [id number] 1{each} inject 1 Each under the skin every 14 (fourteen) days. Use as directed to check blood sugar 3x a day for diagnosis E11.65 [facility] Blood-Gluco se Sensor (FREESTYLE SULEIMAN 3 SENSOR) Tricia 08-28 00:00: 00 09-03 00:00 :00 No [id number] 1{each} inject 1 Each under the skin every 14 (fourteen) days. Use as directed to check blood sugar 3x a day for diagnosis E11.65 [facility] semaglutide (OZEMPIC) 0.25 mg or 0.5 mg (2 mg/3 mL) [facility] 08-28 00:00: 00 09-03 00:00 :00 No [id number] Start 0.25 mg weekly dose for 4 weeks and then progress to 0.5mg weekly injection. [facility] Blood-Gluco se Sensor (FREESTYLE SULEIMAN 3 SENSOR) 08-28 00:00: 00 09-03 00:00 :00 No [id number] 1{each} inject 1 Each under the skin every 14 (fourteen) days. Use as directed to check blood sugar 3x a day for diagnosis E11.65 [facility] semaglutide (OZEMPIC) 0.25 mg or 0.5 mg (2 mg/3 mL) Pn 08-28 00:00: 00 09-03 00:00 :00 No [id number] Start 0.25 mg weekly dose for 4 weeks and then progress to 0.5mg weekly injection. [facility] Blood-Gluco se Sensor (FREESTYLE SULEIMAN 3 SENSOR) 08-28 00:00: 00 09-03 00:00 :00 No [id number] 1{each} inject 1 Each under the skin every 14 (fourteen) days. Use as directed to check blood sugar 3x a day for diagnosis E11.65 [facility] semaglutide (OZEMPIC) 0.25 mg or 0.5 mg (2 mg/3 mL) Pn 08-28 00:00: 00 09-03 00:00 :00 No [id number] Start 0.25 mg weekly dose for 4 weeks and then progress to 0.5mg weekly injection. [facility] Blood-Gluco se Sensor (FREESTYLE SULEIMAN 3 SENSOR) 08-28 00:00: 00 09-03 00:00 :00 No [id number] 1{each} inject 1 Each under the skin every 14 (fourteen) days. Use as directed to check blood sugar 3x a day for diagnosis E11.65 [facility] semaglutide (OZEMPIC) 0.25 mg or 0.5 mg (2 mg/3 mL) PnIj 08-28 00:00: 00 09-03 00:00 :00 No [id number] Start 0.25 mg weekly dose for 4 weeks and then progress to 0.5mg weekly injection. [facility] Blood-Gluco se Sensor (FREESTYLE SULEIMAN 3 SENSOR) 08-28 00:00: 00 09-03 00:00 :00 No [id number] 1{each} inject 1 Each under the skin every 14 (fourteen) days. Use as directed to check blood sugar 3x a day for diagnosis E11.65 [facility] semaglutide (OZEMPIC) 0.25 mg or 0.5 mg (2 mg/3 mL) PnIj 08-28 00:00: 00 09-03 00:00 :00 No [id number] Start 0.25 mg weekly dose for 4 weeks and then progress to 0.5mg weekly injection. [facility] Nitrofurant oin&Nit. Macrocryst 100 mg capsule 08-15 00:00: 00 Yes TAKE 1 CAPSULE BY MOUTH EVERY 12 HOURS FOR 10 DAYS [facility] Nitrofurant oin&Nit. Macrocryst 100 mg capsule 2022-0 08-15 00:00: 00 Yes TAKE 1 CAPSULE BY MOUTH EVERY 12 HOURS FOR 10 DAYS [facility] Nitrofurant oin&Nit. Macrocryst 100 mg capsule 0 08-15 00:00: 00 Yes TAKE 1 CAPSULE BY MOUTH EVERY 12 HOURS FOR 10 DAYS [facility] Nitrofurant oin&Nit. Macrocryst 100 mg capsule 08-15 00:00: 00 Yes TAKE 1 CAPSULE BY MOUTH EVERY 12 HOURS FOR 10 DAYS [facility] Nitrofurant oin&Nit. Macrocryst 100 mg capsule 2022-0 08-15 00:00: 00 Yes TAKE 1 CAPSULE BY MOUTH EVERY 12 HOURS FOR 10 DAYS [facility] Nitrofurant oin&Nit. Macrocryst 100 mg capsule 0 08-15 00:00: 00 Yes TAKE 1 CAPSULE BY MOUTH EVERY 12 HOURS FOR 10 DAYS [facility] Nitrofurant oin&Nit. Macrocryst 100 mg capsule 0 08-15 00:00: 00 Yes TAKE 1 CAPSULE BY MOUTH EVERY 12 HOURS FOR 10 DAYS [facility] Nitrofurant oin&Nit. Macrocryst 100 mg capsule 2022-0 08-15 00:00: 00 Yes TAKE 1 CAPSULE BY MOUTH EVERY 12 HOURS FOR 10 DAYS [facility] Nitrofurant oin&Nit. Macrocryst 100 mg capsule 2022-0 08-15 00:00: 00 Yes TAKE 1 CAPSULE BY MOUTH EVERY 12 HOURS FOR 10 DAYS [facility] Nitrofurant oin&Nit. Macrocryst 100 mg capsule 2022-0 08-15 00:00: 00 Yes TAKE 1 CAPSULE BY MOUTH EVERY 12 HOURS FOR 10 DAYS [facility] Nitrofurant oin&Nit. Macrocryst 100 mg capsule 2022-0 08-15 00:00: 00 Yes TAKE 1 CAPSULE BY MOUTH EVERY 12 HOURS FOR 10 DAYS [facility] Nitrofurant oin&Nit. Macrocryst 100 mg capsule 2022-0 08-15 00:00: 00 Yes TAKE 1 CAPSULE BY MOUTH EVERY 12 HOURS FOR 10 DAYS [facility] Nitrofurant oin&Nit. Macrocryst 100 mg capsule 2022-0 08-15 00:00: 00 Yes TAKE 1 CAPSULE BY MOUTH EVERY 12 HOURS FOR 10 DAYS [facility] Nitrofurant oin&Nit. Macrocryst 100 mg capsule 2022-0 08-15 00:00: 00 Yes TAKE 1 CAPSULE BY MOUTH EVERY 12 HOURS FOR 10 DAYS [facility] Nitrofurant oin&Nit. Macrocryst 100 mg capsule 2022-0 08-15 00:00: 00 Yes TAKE 1 CAPSULE BY MOUTH EVERY 12 HOURS FOR 10 DAYS [facility] Nitrofurant oin&Nit. Macrocryst 100 mg capsule 2022-0 08-15 00:00: 00 Yes TAKE 1 CAPSULE BY MOUTH EVERY 12 HOURS FOR 10 DAYS [facility] Nitrofurant oin&Nit. Macrocryst 100 mg capsule 2022-0 08-15 00:00: 00 Yes TAKE 1 CAPSULE BY MOUTH EVERY 12 HOURS FOR 10 DAYS [facility] Nitrofurant oin&Nit. Macrocryst 100 mg capsule 2022-0 08-15 00:00: 00 Yes TAKE 1 CAPSULE BY MOUTH EVERY 12 HOURS FOR 10 DAYS [facility] Nitrofurant oin&Nit. Macrocryst 100 mg capsule 3-0 08-15 00:00: 00 Yes TAKE 1 CAPSULE BY MOUTH EVERY 12 HOURS FOR 10 DAYS [facility] Nitrofurant oin&Nit. Macrocryst 100 mg capsule 2022-0 08-15 00:00: 00 Yes TAKE 1 CAPSULE BY MOUTH EVERY 12 HOURS FOR 10 DAYS [facility] Nitrofurant oin&Nit. Macrocryst 100 mg capsule 2022-0 08-15 00:00: 00 Yes TAKE 1 CAPSULE BY MOUTH EVERY 12 HOURS FOR 10 DAYS [facility] Nitrofurant oin&Nit. Macrocryst 100 mg capsule 2022-0 08-15 00:00: 00 Yes TAKE 1 CAPSULE BY MOUTH EVERY 12 HOURS FOR 10 DAYS [facility] Nitrofurant oin&Nit. Macrocryst 100 mg capsule 2022-0 08-15 00:00: 00 Yes TAKE 1 CAPSULE BY MOUTH EVERY 12 HOURS FOR 10 DAYS [facility] Nitrofurant oin&Nit. Macrocryst 100 mg capsule 2022-0 08-15 00:00: 00 Yes TAKE 1 CAPSULE BY MOUTH EVERY 12 HOURS FOR 10 DAYS [facility] Nitrofurant oin&Nit. Macrocryst 100 mg capsule 2022-0 08-15 00:00: 00 Yes TAKE 1 CAPSULE BY MOUTH EVERY 12 HOURS FOR 10 DAYS [facility] Nitrofurant oin&Nit. Macrocryst 100 mg capsule 2022-0 08-15 00:00: 00 Yes TAKE 1 CAPSULE BY MOUTH [facility] Macrocryst 100 mg capsule 2022-0 08-15 00:00: 00 Yes TAKE 1 CAPSULE BY MOUTH EVERY 12 HOURS FOR 10 DAYS [facility] Nitrofurant oin&Nit. Macrocryst 100 mg capsule 2022-0 08-15 00:00: 00 Yes TAKE 1 CAPSULE BY MOUTH EVERY 12 HOURS FOR 10 DAYS [facility]y [facility] Nitrofurant oin&Nit. Macrocryst 100 mg capsule 2022-0 08-15 00:00: 00 Yes TAKE 1 CAPSULE BY MOUTH EVERY 12 HOURS FOR 10 DAYS [facility] flash glucose sensor (FREESTYLE SULEIMAN 2 SENSOR) Kit 2022-0 6-12 00:00: 00 Yes [id number] 1{kit} 1 Kit every 14 (fourteen) days. [facility] flash glucose sensor (FREESTYLE SULEIMAN 2 SENSOR) Kit 07-23 00:00: 00 Yes [id number] 1{kit} 1 Kit every 14 (fourteen) days. [facility] flash glucose sensor (FREESTYLE SULEIMAN 2 SENSOR) Kit 07-23 00:00: 00 Yes [id number] 1{kit} 1 Kit every 14 (fourteen) days. [facility] flash glucose sensor (FREESTYLE SULEIMAN 2 SENSOR) Kit 07-23 00:00: 00 08-28 00:00 :00 No [id number] 1{kit} 1 Kit every 14 (fourteen) days. [facility] flash glucose sensor (FREESTYLE SULEIMAN 2 SENSOR) Kit 07-23 00:00: 00 08-28 00:00 :00 No [id number] 1{kit} 1 Kit every 14 (fourteen) days. [facility] flash glucose sensor (FREESTYLE SULEIMAN 2 SENSOR) Kit 07-23 00:00: 00 08-28 00:00 :00 No [id number] 1{kit} 1 Kit every 14 (fourteen) days. [facility] flash glucose sensor (FREESTYLE SULEIMAN 2 SENSOR) Kit 07-23 00:00: 00 08-28 00:00 :00 No [id number] 1{kit} 1 Kit every 14 (fourteen) days. [facility] flash glucose sensor (FREESTYLE SULEIMAN 2 SENSOR) Kit 07-23 00:00: 00 08-28 00:00 :00 No [id number] 1{kit} 1 Kit every 14 (fourteen) days. [facility] flash glucose sensor (FREESTYLE SULEIMAN 2 SENSOR) Kit 07-23 00:00: 00 08-28 00:00 :00 No [id number] 1{kit} 1 Kit every 14 (fourteen) days. [facility] flash glucose sensor (FREESTYLE SULEIMAN 2 SENSOR) Kit 07-23 00:00: 00 08-28 00:00 :00 No [id number] 1{kit} 1 Kit every 14 (fourteen) days. [facility] flash glucose sensor (FREESTYLE SULEIMAN 2 SENSOR) Kit 07-23 00:00: 00 08-28 00:00 :00 No [id number] 1{kit} 1 Kit every 14 (fourteen) days. [facility] lisinopriL 10 mg tablet 07-18 15:39: 43 07-18 00:00 :00 No 10mg Take 1 tablet by mouth in the morning. [facility] insulin glargine U-300 conc (TOUJEO MAX U-300 SOLOSTAR) 300 unit/mL (3 mL) In 07-18 15:39: 43 07-18 00:00 :00 No 60U inject 60 Units under the skin at bedtime. [facility] citalopram 10 mg tablet 07-18 15:39: 43 07-18 00:00 :00 No 10mg Take 1 tablet by mouth at bedtime. [facility] lisinopriL 10 mg tablet 07-18 15:39: 43 07-18 00:00 :00 No 10mg Take 1 tablet by mouth in the morning. [facility] insulin glargine U-300 conc (TOUJEO MAX U-300 SOLOSTAR) 300 unit/mL (3 mL) In 07-18 15:39: 43 07-18 00:00 :00 No 60U inject 60 Units under the skin at bedtime. [facility] citalopram 10 mg tablet 07-18 15:39: 43 07-18 00:00 :00 No 10mg Take 1 tablet by mouth at bedtime. [facility] insulin glargine U-300 conc (TOUJEO MAX U-300 SOLOSTAR) 300 unit/mL (3 mL) In 07-18 00:00: 00 Yes [id number] 20U inject 20 Units under the skin at bedtime. [facility] lisinopriL 10 mg tablet 07-18 00:00: 00 Yes [id number] 10mg Take 1 tablet by mouth in the morning. [facility] citalopram 10 mg tablet 07-18 00:00: 00 Yes [id number] 10mg Take 1 tablet by mouth at bedtime. [facility] insulin glargine U-300 conc (TOUJEO MAX U-300 SOLOSTAR) 300 unit/mL (3 mL) In 07-18 00:00: 00 Yes [id number] 20U inject 20 Units under the skin at bedtime. [facility] lisinopriL 10 mg tablet 07-18 00:00: 00 Yes [id number] 10mg Take 1 tablet by mouth in the morning. [facility] citalopram 10 mg tablet 07-18 00:00: 00 Yes [id number] 10mg Take 1 tablet by mouth at bedtime. [facility] insulin glargine U-300 conc (TOUJEO MAX U-300 SOLOSTAR) 300 unit/mL (3 mL) In 07-18 00:00: 00 Yes [id number] 20U inject 20 Units under the skin at bedtime. [facility] lisinopriL 10 mg tablet 07-18 00:00: 00 Yes [id number] 10mg Take 1 tablet by mouth in the morning. [facility] citalopram 10 mg tablet 07-18 00:00: 00 Yes [id number] 10mg Take 1 tablet by mouth at bedtime. [facility] insulin glargine U-300 conc (TOUJEO MAX U-300 SOLOSTAR) 300 unit/mL (3 mL) In 07-18 00:00: 00 Yes [id number] 20U inject 20 Units under the skin at bedtime. [facility] lisinopriL 10 mg tablet 07-18 00:00: 00 Yes [id number] 10mg Take 1 tablet by mouth in the morning. [facility] citalopram 10 mg tablet 07-18 00:00: 00 Yes [id number] 10mg Take 1 tablet by mouth at bedtime. [facility] insulin glargine U-300 conc (TOUJEO MAX U-300 SOLOSTAR) 300 unit/mL (3 mL) In 07-18 00:00: 00 Yes [id number] 20U inject 20 Units under the skin at bedtime. [facility] lisinopriL 10 mg tablet 07-18 00:00: 00 Yes [id number] 10mg Take 1 tablet by mouth in the morning. [facility] citalopram 10 mg tablet 07-18 00:00: 00 Yes [id number] 10mg Take 1 tablet by mouth at bedtime. [facility] insulin glargine U-300 conc (TOUJEO MAX U-300 SOLOSTAR) 300 unit/mL (3 mL) [facility] 07-18 00:00: 00 Yes [id number] 20U inject 20 Units under the skin at bedtime. [facility] lisinopriL 10 mg tablet 07-18 00:00: 00 Yes [id number] 10mg Take 1 tablet by mouth in the morning. [facility] citalopram 10 mg tablet 07-18 00:00: 00 Yes [id number] 10mg Take 1 tablet by mouth at bedtime. [facility] insulin glargine U-300 conc (TOUJEO MAX U-300 SOLOSTAR) 300 unit/mL (3 mL) [facility] 07-18 00:00: 00 Yes [id number] 20U inject 20 Units under the skin at bedtime. [facility] lisinopriL 10 mg tablet 07-18 00:00: 00 Yes [id number] 10mg Take 1 tablet by mouth in the morning. [facility] citalopram 10 mg tablet 07-18 00:00: 00 Yes [id number] 10mg Take 1 tablet by mouth at bedtime. [facility] insulin glargine U-300 conc (TOUJEO MAX U-300 SOLOSTAR) 300 unit/mL (3 mL) [facility] 07-18 00:00: 00 Yes [id number] 20U inject 20 Units under the skin at bedtime. [facility] lisinopriL 10 mg tablet 07-18 00:00: 00 Yes [id number] 10mg Take 1 tablet by mouth in the morning. [facility] citalopram 10 mg tablet 07-18 00:00: 00 Yes [id number] 10mg Take 1 tablet by mouth at bedtime. [facility] insulin glargine U-300 conc (TOUJEO MAX U-300 SOLOSTAR) 300 unit/mL (3 mL) In 07-18 00:00: 00 Yes [id number] 20U inject 20 Units under the skin at bedtime. [facility] lisinopriL 10 mg tablet 07-18 00:00: 00 Yes [id number] 10mg Take 1 tablet by mouth in the morning. [facility] citalopram 10 mg tablet 07-18 00:00: 00 Yes [id number] 10mg Take 1 tablet by mouth at bedtime. [facility] insulin glargine U-300 conc (TOUJEO MAX U-300 SOLOSTAR) 300 unit/mL (3 mL) [facility] 07-18 00:00: 00 Yes [id number] 20U inject 20 Units under the skin at bedtime. [facility] lisinopriL 10 mg tablet 07-18 00:00: 00 Yes [id number] 10mg Take 1 tablet by mouth in the morning. [facility] citalopram 10 mg tablet 07-18 00:00: 00 Yes [id number] 10mg Take 1 tablet by mouth at bedtime. [facility] insulin glargine U-300 conc (TOUJEO MAX U-300 SOLOSTAR) 300 unit/mL (3 mL) In 07-18 00:00: 00 Yes [id number] 20U inject 20 Units under the skin at bedtime. [facility] lisinopriL 10 mg tablet 07-18 00:00: 00 Yes [id number] 10mg Take 1 tablet by mouth in the morning. [facility] citalopram 10 mg tablet 07-18 00:00: 00 Yes [id number] 10mg Take 1 tablet by mouth at bedtime. [facility] insulin glargine U-300 conc (TOUJEO MAX U-300 SOLOSTAR) 300 unit/mL (3 mL) In 07-18 00:00: 00 Yes [id number] 20U inject 20 Units under the skin at bedtime. [facility] lisinopriL 10 mg tablet 07-18 00:00: 00 Yes [id number] 10mg Take 1 tablet by mouth in the morning. [facility] citalopram 10 mg tablet 07-18 00:00: 00 Yes [id number] 10mg Take 1 tablet by mouth at bedtime. [facility] insulin glargine U-300 conc (TOUJEO MAX U-300 SOLOSTAR) 300 unit/mL (3 mL) In 07-18 00:00: 00 Yes [id number] 20U inject 20 Units under the skin at bedtime. [facility] lisinopriL 10 mg tablet 07-18 00:00: 00 Yes [id number] 10mg Take 1 tablet by mouth in the morning. [facility] citalopram 10 mg tablet 07-18 00:00: 00 Yes [id number] 10mg Take 1 tablet by mouth at bedtime. [facility] insulin glargine U-300 conc (TOUJEO MAX U-300 SOLOSTAR) 300 unit/mL (3 mL) In 07-18 00:00: 00 Yes [id number] 20U inject 20 Units under the skin at bedtime. [facility] lisinopriL 10 mg tablet 07-18 00:00: 00 Yes [id number] 10mg Take 1 tablet by mouth in the morning. [facility] citalopram 10 mg tablet 07-18 00:00: 00 Yes [id number] 10mg Take 1 tablet by mouth at bedtime. [facility] insulin glargine U-300 conc (TOUJEO MAX U-300 SOLOSTAR) 300 unit/mL (3 mL) In 07-18 00:00: 00 Yes [id number] 20U inject 20 Units under the skin at bedtime. [facility] lisinopriL 10 mg tablet 07-18 00:00: 00 Yes [id number] 10mg Take 1 tablet by mouth in the morning. [facility] citalopram 10 mg tablet 07-18 00:00: 00 Yes [id number] 10mg Take 1 tablet by mouth at bedtime. [facility] insulin glargine U-300 conc (TOUJEO MAX U-300 SOLOSTAR) 300 unit/mL (3 mL) [facility] 07-18 00:00: 00 Yes [id number] 20U inject 20 Units under the skin at bedtime. [facility] lisinopriL 10 mg tablet 07-18 00:00: 00 Yes [id number] 10mg Take 1 tablet by mouth in the morning. [facility] citalopram 10 mg tablet 07-18 00:00: 00 Yes [id number] 10mg Take 1 tablet by mouth at bedtime. [facility] insulin glargine U-300 conc (TOUJEO MAX U-300 SOLOSTAR) 300 unit/mL (3 mL) [facility] 07-18 00:00: 00 Yes [id number] 20U inject 20 Units under the skin at bedtime. [facility] lisinopriL 10 mg tablet 07-18 00:00: 00 Yes [id number] 10mg Take 1 tablet by mouth in the morning. [facility] citalopram 10 mg tablet 07-18 00:00: 00 Yes [id number] 10mg Take 1 tablet by mouth at bedtime. [facility] insulin glargine U-300 conc (TOUJEO MAX U-300 SOLOSTAR) 300 unit/mL (3 mL) [facility] 07-18 00:00: 00 Yes [id number] 20U inject 20 Units under the skin at bedtime. [facility] citalopram 10 mg tablet 07-18 00:00: 00 Yes [id number] 10mg Take 1 tablet by mouth at bedtime. [facility] insulin glargine U-300 conc (TOUJEO MAX U-300 SOLOSTAR) 300 unit/mL (3 mL) In 07-18 00:00: 00 Yes [id number] 20U inject 20 Units under the skin at bedtime. [facility] citalopram 10 mg tablet 07-18 00:00: 00 Yes [id number] 10mg Take 1 tablet by mouth at bedtime. [facility] insulin glargine U-300 conc (TOUJEO MAX U-300 SOLOSTAR) 300 unit/mL (3 mL) [facility] 07-18 00:00: 00 Yes [id number] 20U inject 20 Units under the skin at bedtime. [facility] citalopram 10 mg tablet 07-18 00:00: 00 Yes [id number] 10mg Take 1 tablet by mouth at bedtime. [facility] insulin glargine U-300 conc (TOUJEO MAX U-300 SOLOSTAR) 300 unit/mL (3 mL) [facility] 07-18 00:00: 00 Yes [id number] 20U inject 20 Units under the skin at bedtime. [facility] citalopram 10 mg tablet 07-18 00:00: 00 Yes [id number] 10mg Take 1 tablet by mouth at bedtime. [facility] insulin glargine U-300 conc (TOUJEO MAX U-300 SOLOSTAR) 300 unit/mL (3 mL) [facility] 07-18 00:00: 00 Yes [id number] 20U inject 20 Units under the skin at bedtime. [facility] citalopram 10 mg tablet 07-18 00:00: 00 Yes [id number] 10mg Take 1 tablet by mouth at bedtime. [facility] insulin glargine U-300 conc (TOUJEO MAX U-300 SOLOSTAR) 300 unit/mL (3 mL) [facility] 07-18 00:00: 00 Yes [id number] 20U inject 20 Units under the skin at bedtime. [facility] citalopram 10 mg tablet 07-18 00:00: 00 Yes [id number] 10mg Take 1 tablet by mouth at bedtime. [facility] insulin glargine U-300 conc (TOUJEO MAX U-300 SOLOSTAR) 300 unit/mL (3 mL) [facility] 07-18 00:00: 00 Yes [id number] 20U inject 20 Units under the skin at bedtime. [facility] citalopram 10 mg tablet 07-18 00:00: 00 Yes [id number] 10mg Take 1 tablet by mouth at bedtime. [facility] insulin glargine U-300 conc (TOUJEO MAX U-300 SOLOSTAR) 300 unit/mL (3 mL) [facility] 07-18 00:00: 00 Yes [id number] 20U inject 20 Units under the skin at bedtime. [facility] citalopram 10 mg tablet 07-18 00:00: 00 Yes [id number] 10mg Take 1 tablet by mouth at bedtime. [facility] insulin glargine U-300 conc (TOUJEO MAX U-300 SOLOSTAR) 300 unit/mL (3 mL) [facility] 07-18 00:00: 00 Yes [id number] 20U inject 20 Units under the skin at bedtime. [facility] citalopram 10 mg tablet 07-18 00:00: 00 Yes [id number] 10mg Take 1 tablet by mouth at bedtime. [facility] insulin glargine U-300 conc (TOUJEO MAX U-300 SOLOSTAR) 300 unit/mL (3 mL) [facility] 07-18 00:00: 00 Yes [id number] 20U inject 20 Units under the skin at bedtime. [facility] insulin glargine U-300 conc (TOUJEO MAX U-300 SOLOSTAR) 300 unit/mL (3 mL) [facility] 07-18 00:00: 00 Yes [id number] 20U inject 20 Units under the skin at bedtime. [facility] insulin glargine U-300 conc (TOUJEO MAX U-300 SOLOSTAR) 300 unit/mL (3 mL) [facility] 07-18 00:00: 00 Yes [id number] 20U inject 20 Units under the skin at bedtime. [facility] insulin glargine U-300 conc (TOUJEO MAX U-300 SOLOSTAR) 300 unit/mL (3 mL) [facility] 07-18 00:00: 00 Yes [id number] 20U inject 20 Units under the skin at bedtime. [facility] lisinopriL 10 mg tablet 07-18 00:00: 00 Yes [id number] 10mg Take 1 tablet by mouth in the morning. [facility] citalopram 10 mg tablet 07-18 00:00: 00 Yes [id number] 10mg Take 1 tablet by mouth at bedtime. [facility] insulin glargine U-300 conc (TOUJEO MAX U-300 SOLOSTAR) 300 unit/mL (3 mL) [facility] 07-18 00:00: 00 Yes [id number] 20U inject 20 Units under the skin at bedtime. [facility] lisinopriL 10 mg tablet 07-18 00:00: 00 Yes [id number] 10mg Take 1 tablet by mouth in the morning. [facility] citalopram 10 mg tablet 07-18 00:00: 00 Yes [id number] 10mg Take 1 tablet by mouth at bedtime. [facility] insulin glargine U-300 conc (TOUJEO MAX U-300 SOLOSTAR) 300 unit/mL (3 mL) [facility] 07-18 00:00: 00 Yes [id number] 20U inject 20 Units under the skin at bedtime. [facility] lisinopriL 10 mg tablet 07-18 00:00: 00 Yes [id number] 10mg Take 1 tablet by mouth in the morning. [facility] citalopram 10 mg tablet 07-18 00:00: 00 Yes [id number] 10mg Take 1 tablet by mouth at bedtime. [facility] insulin glargine U-300 conc (TOUJEO MAX U-300 SOLOSTAR) 300 unit/mL (3 mL) In 07-18 00:00: 00 Yes [id number] 20U inject 20 Units under the skin at bedtime. [facility] lisinopriL 10 mg tablet 07-18 00:00: 00 Yes [id number] 10mg Take 1 tablet by mouth in the morning. [facility] citalopram 10 mg tablet 07-18 00:00: 00 Yes [id number] 10mg Take 1 tablet by mouth at bedtime. [facility] insulin glargine U-300 conc (TOUJEO MAX U-300 SOLOSTAR) 300 unit/mL (3 mL) [facility] 07-18 00:00: 00 04-05 00:00 :00 No [id number] 20U inject 20 Units under the skin at bedtime. [facility] insulin glargine U-300 conc (TOUJEO MAX U-300 SOLOSTAR) 300 unit/mL (3 mL) [facility] 07-18 00:00: 00 04-05 00:00 :00 No [id number] 20U inject 20 Units under the skin at bedtime. [facility] citalopram 10 mg tablet 07-18 00:00: 00 03-28 00:00 :00 No [id number] 10mg Take 1 tablet by mouth at bedtime. [facility] lisinopriL 10 mg tablet 07-18 00:00: 00 11-19 00:00 :00 No [id number] 10mg Take 1 tablet by mouth in the morning. [facility] lisinopriL 10 mg tablet 07-18 00:00: 00 11-19 00:00 :00 No [id number] 10mg Take 1 tablet by mouth in the morning. [facility] lisinopriL 10 mg tablet 07-18 00:00: 00 11-19 00:00 :00 No [id number] 10mg Take 1 tablet by mouth in the morning. [facility] lisinopriL 10 mg tablet 07-18 00:00: 00 11-19 00:00 :00 No [id number] 10mg Take 1 tablet by mouth in the morning. [facility] Atorvastati n Calcium 20 MG Atorvastati n Calcium 20 MG 08-29 00:00: 00 No 1{table t} QD Atorvastat in Calcium 20 MG Atorvastati n Calcium 20 MG Atorvastati n Calcium 20 MG 08-29 00:00: 00 No 1{table t} QD Atorvastat in Calcium 20 MG FreeStyle [facility] Lignum FreeStyle Suleiman Lignum 03-05 00:00: 00 Yes Althea Grant as directed [facility] FreeStyle Suleiman Sensor System FreeStyle [employer]iman Sensor System 03-05 00:00: 00 Yes Althea Grant as directed [facility] FreeStyle Suleiman Lignum - FreeStyle Suleiman Lignum - 03-05 00:00: 00 No FreeStyle [facility] Lignum - FreeStyle [facility]iman Lignum - FreeStyle Suleiman Lignum - 0 03-05 00:00: 00 No FreeStyle [employer] Lignum - FreeStyle [employer] Sensor System - FreeStyle [employer]iman Sensor System - 0 03-05 00:00: 00 No FreeStyle [employer] Sensor System - FreeStyle [employer]iman Sensor System - FreeStyle [employer]iman Sensor System - 0 03-05 00:00: 00 No FreeStyle [employer] Sensor System - FreeStyle [facility]uleiman Lignum - FreeStyle Suleiman Lignum - 0 03-05 00:00: 00 No FreeStyle [employer]iman Lignum - FreeStyle [employer]iman Sensor System - FreeStyle [employer]iman Sensor System - 2018-03-05 00:00: 00 No FreeStyle [employer] Sensor System - Citalopram Hydrobromid e Citalopram Hydrobromid e 02-25 00:00: 00 Yes Na Grant 1 tablet [facility] Citalopram Hydrobromid e 10 MG [...] Eliquis 5 mg Yes Na Grant one [facility] Paxil Paxil Yes Na Grant 1 tablet in the morning [facility] Toujeo SoloStar Toujeo SoloStar Yes Na Grant 70 units [facility] Gabapentin Gabapentin Yes Na Grant 2 capsule before bedtime [facility] Ferralet 90 Ferralet 90 Yes Na Grant 1 tablet [facility] Lisinopril Lisinopril Yes Na Grant 1 tablet [facility] Pravastatin Sodium Pravastatin Sodium Yes Na Grant 1 tablet [facility] Clotrimazol e Clotrimazol e Yes Na Grant 1 applicatio n to affected area [facility] Gabapentin 300 MG Gabapentin 300 MG No [...] SARS-COV-2 COVID-19 PFIZER VACCINE 2020-05-27 00:00:00 Completed [facility] SARS-COV-2 COVID-19 PFIZER VACCINE 2020-05-27 00:00:00 Completed [facility] SARS-COV-2 COVID-19 PFIZER VACCINE 2020-05-27 00:00:00 Completed [facility] SARS-COV-2 COVID-19 PFIZER VACCINE 2020-05-27 00:00:00 Completed [facility] SARS-COV-2 COVID-19 PFIZER VACCINE 2020-05-27 00:00:00 Completed [facility] SARS-COV-2 COVID-19 PFIZER VACCINE 2020-05-27 00:00:00 Completed [facility] SARS-COV-2 COVID-19 PFIZER VACCINE 2020-05-27 00:00:00 Completed [facility] SARS-COV-2 COVID-19 PFIZER VACCINE 2020-05-27 00:00:00 Completed [facility] SARS-COV-2 COVID-19 PFIZER VACCINE 2020-05-27 00:00:00 Completed [facility] SARS-COV-2 COVID-19 PFIZER VACCINE 2020-05-27 00:00:00 Completed [facility] SARS-COV-2 COVID-19 PFIZER VACCINE 2020-05-27 00:00:00 Completed [facility] SARS-COV-2 COVID-19 PFIZER VACCINE 2020-05-27 00:00:00 Completed [facility] SARS-COV-2 COVID-19 PFIZER VACCINE 2020-05-27 00:00:00 Completed [facility] SARS-COV-2 COVID-19 PFIZER VACCINE 2020-05-27 00:00:00 Completed [facility] SARS-COV-2 COVID-19 PFIZER VACCINE 2020-05-27 00:00:00 Completed [facility] SARS-COV-2 COVID-19 PFIZER VACCINE 2020-05-27 00:00:00 Completed [facility] SARS-COV-2 COVID-19 PFIZER VACCINE 2020-05-27 00:00:00 Completed [facility] SARS-COV-2 COVID-19 PFIZER VACCINE 2020-05-27 00:00:00 Completed [facility] SARS-COV-2 COVID-19 PFIZER VACCINE 2020-05-27 00:00:00 Completed [facility] SARS-COV-2 COVID-19 PFIZER VACCINE 2020-05-27 00:00:00 Completed [facility] SARS-COV-2 COVID-19 PFIZER VACCINE 2020-05-05 00:00:00 Completed [facility] SARS-COV-2 COVID-19 PFIZER VACCINE 2020-05-05 00:00:00 Completed [facility] SARS-COV-2 COVID-19 PFIZER VACCINE 2020-05-05 00:00:00 Completed [facility] SARS-COV-2 COVID-19 PFIZER VACCINE 2020-05-05 00:00:00 Completed [facility] SARS-COV-2 COVID-19 PFIZER VACCINE 2020-05-05 00:00:00 Completed [facility] SARS-COV-2 COVID-19 PFIZER VACCINE 2020-05-05 00:00:00 Completed [facility] [facility] [place] SARS-COV-2 COVID-19 PFIZER VACCINE 2020-05-05 00:00:00 Completed [facility] SARS-COV-2 COVID-19 PFIZER VACCINE 2020-05-05 00:00:00 Completed [facility] SARS-COV-2 COVID-19 PFIZER VACCINE 2020-05-05 00:00:00 Completed [facility] SARS-COV-2 COVID-19 PFIZER VACCINE 2020-05-05 00:00:00 Completed [facility] SARS-COV-2 COVID-19 PFIZER VACCINE 2020-05-05 00:00:00 Completed [facility] SARS-COV-2 COVID-19 PFIZER VACCINE 2020-05-05 00:00:00 Completed [facility] SARS-COV-2 COVID-19 PFIZER VACCINE 2020-05-05 00:00:00 Completed [facility] SARS-COV-2 COVID-19 PFIZER VACCINE 2020-05-05 00:00:00 Completed [facility] SARS-COV-2 COVID-19 PFIZER VACCINE 2020-05-05 00:00:00 Completed [facility] SARS-COV-2 COVID-19 PFIZER VACCINE 2020-05-05 00:00:00 Completed [facility] SARS-COV-2 COVID-19 PFIZER VACCINE 2020-05-05 00:00:00 Completed [facility] SARS-COV-2 COVID-19 PFIZER VACCINE 2020-05-05 00:00:00 Completed [facility] SARS-COV-2 COVID-19 PFIZER VACCINE 2020-05-05 00:00:00 Completed [facility] SARS-COV-2 COVID-19 PFIZER VACCINE 2020-05-05 00:00:00 Completed [facility] Afluria Afluria 2019-11-24 14:21:00 Completed [facility] Afluria Afluria 2019-11-24 14:21:00 Completed [facility] Afluria Afluria 2019-11-24 14:21:00 Completed [facility] Afluria Afluria 2017-11-25 12:09:00 Completed [facility] Afluria Afluria 2017-11-25 12:09:00 Completed [facility] Afluria Afluria 2017-11-25 12:09:00 Completed [facility] SARS-COV-2 COVID-19 PFIZER VACCINE Unknown Completed [facility] SARS-COV-2 COVID-19 PFIZER VACCINE Unknown Completed [facility] SARS-COV-2 COVID-19 PFIZER VACCINE Unknown Completed [facility] SARS-COV-2 COVID-19 PFIZER VACCINE Unknown Completed [facility] SARS-COV-2 COVID-19 PFIZER VACCINE Unknown Completed [facility] SARS-COV-2 COVID-19 PFIZER VACCINE Unknown Completed [facility] Zoster Vaccine Recombinant Unknown Completed [facility] SARS-COV-2 COVID-19 PFIZER VACCINE Unknown Completed [facility] SARS-COV-2 COVID-19 PFIZER VACCINE Unknown Completed [facility] Zoster Vaccine Recombinant Unknown Completed [facility] SARS-COV-2 COVID-19 PFIZER VACCINE Unknown Completed [facility] SARS-COV-2 COVID-19 PFIZER VACCINE Unknown Completed [facility] Zoster Vaccine Recombinant Unknown Completed [facility] SARS-COV-2 COVID-19 PFIZER VACCINE Unknown Completed [facility] SARS-COV-2 COVID-19 PFIZER VACCINE Unknown Completed [facility] Zoster Vaccine Recombinant Unknown Completed [facility] SARS-COV-2 COVID-19 PFIZER VACCINE Unknown Completed [facility] SARS-COV-2 COVID-19 PFIZER VACCINE Unknown Completed [facility] Zoster Vaccine Recombinant Unknown Completed [facility] SARS-COV-2 COVID-19 PFIZER VACCINE Unknown Completed [facility] SARS-COV-2 COVID-19 PFIZER VACCINE Unknown Completed [facility] Zoster Vaccine Recombinant Unknown Completed [facility] SARS-COV-2 COVID-19 PFIZER VACCINE Unknown Completed [facility] SARS-COV-2 COVID-19 PFIZER VACCINE Unknown Completed [facility] Zoster Vaccine Recombinant Unknown Completed [facility] SARS-COV-2 COVID-19 PFIZER VACCINE Unknown Completed [facility] SARS-COV-2 COVID-19 PFIZER VACCINE Unknown Completed [facility] Zoster Vaccine Recombinant Unknown Completed [facility] SARS-COV-2 COVID-19 PFIZER VACCINE Unknown Completed [facility] SARS-COV-2 COVID-19 PFIZER VACCINE Unknown Completed [facility] Zoster Vaccine Recombinant Unknown Completed [facility] SARS-COV-2 COVID-19 PFIZER VACCINE Unknown Completed [facility] SARS-COV-2 COVID-19 PFIZER VACCINE Unknown Completed [facility] Zoster Vaccine Recombinant Unknown Completed [facility] SARS-COV-2 COVID-19 PFIZER VACCINE Unknown Completed [facility] SARS-COV-2 COVID-19 PFIZER VACCINE Unknown Completed [facility] Zoster Vaccine Recombinant Unknown Completed [facility] SARS-COV-2 COVID-19 PFIZER VACCINE Unknown Completed [facility] SARS-COV-2 COVID-19 PFIZER VACCINE Unknown Completed [facility] Zoster Vaccine Recombinant Unknown Completed [facility] SARS-COV-2 COVID-19 PFIZER VACCINE Unknown Completed [facility] SARS-COV-2 COVID-19 PFIZER VACCINE Unknown Completed [facility] Zoster Vaccine Recombinant Unknown Completed [facility] SARS-COV-2 COVID-19 PFIZER VACCINE Unknown Completed [facility] SARS-COV-2 COVID-19 PFIZER VACCINE Unknown Completed [facility] Zoster Vaccine Recombinant Unknown Completed [facility] SARS-COV-2 COVID-19 PFIZER VACCINE Unknown Completed [facility] SARS-COV-2 COVID-19 PFIZER VACCINE Unknown Completed [facility] Zoster Vaccine Recombinant Unknown Completed [facility] SARS-COV-2 COVID-19 PFIZER VACCINE Unknown Completed [facility] SARS-COV-2 COVID-19 PFIZER VACCINE Unknown Completed [facility] Zoster Vaccine Recombinant Unknown Completed [facility] SARS-COV-2 COVID-19 PFIZER VACCINE Unknown Completed [facility] SARS-COV-2 COVID-19 PFIZER VACCINE Unknown Completed [facility] Zoster Vaccine Recombinant Unknown Completed [facility] SARS-COV-2 COVID-19 PFIZER VACCINE Unknown Completed [facility] SARS-COV-2 COVID-19 PFIZER VACCINE Unknown Completed [facility] Zoster Vaccine Recombinant Unknown Completed [facility] SARS-COV-2 COVID-19 PFIZER VACCINE Unknown Completed [facility] SARS-COV-2 COVID-19 PFIZER VACCINE Unknown Completed [facility] Zoster Vaccine Recombinant Unknown Completed [facility] Vital Signs Vital Name Observation Time Observation Value Comments S ource Systolic blood pressure 2023-05-10 20:09:00 118 mm[Hg] [facility] Diastolic blood pressure 2023-05-10 20:09:00 73 mm[Hg] [facility] Heart rate 2023-05-10 20:09:00 94 /min [facility] Body temperature 2023-05-10 20:09:00 36.72 Rose [facility] Respiratory rate 2023-05-10 20:09:00 18 /min [facility] Body height 2023-05-10 20:09:00 162.6 cm [facility] Body weight 2023-05-10 20:09:00 60.918 kg [facility] BMI 2023-05-10 20:09:00 23.05 kg/m2 [facility] Oxygen saturation in Arterial blood by Pulse oximetry 2023-05-10 20:09:00 99 /min [facility] Systolic blood pressure 2023-04-05 21:42:00 144 mm[Hg] [facility] Diastolic blood pressure 2023-04-05 21:42:00 83 mm[Hg] [facility] Heart rate 2023-04-05 21:42:00 102 /min [facility] Body height 2023-04-05 21:42:00 162.6 cm [facility] Body weight 2023-04-05 21:42:00 57.698 kg [facility] BMI 2023-04-05 21:42:00 21.83 kg/m2 [facility] Oxygen saturation in Arterial blood by Pulse oximetry 2023-04-05 21:42:00 99 /min [facility] Systolic blood pressure 2022-11-19 16:08:00 105 mm[Hg] [facility] Diastolic blood pressure 2022-11-19 16:08:00 70 mm[Hg] [facility] Heart rate 2022-11-19 16:08:00 94 /min [facility] Body height 2022-11-19 16:08:00 162.6 cm [facility] Body weight 2022-11-19 16:08:00 59.875 kg Univ [facility] BMI 2022-11-19 16:08:00 22.66 kg/m2 [facility] Oxygen saturation in Arterial blood by Pulse oximetry 2022-11-19 16:08:00 100 /min [facility] Systolic blood pressure 2022-09-03 14:37:00 143 mm[Hg] [facility] Diastolic blood pressure 2022-09-03 14:37:00 84 mm[Hg] [facility] Heart rate 2022-09-03 14:29:00 83 /min [facility] Body height 2022-09-03 14:29:00 162.6 cm [facility] Body weight 2022-09-03 14:29:00 61.417 kg [facility] BMI 2022-09-03 14:29:00 23.24 kg/m2 [facility] Oxygen saturation in Arterial blood by Pulse oximetry 2022-09-03 14:29:00 99 /min [facility] Systolic blood pressure 2022-08-28 16:17:00 147 mm[Hg] [facility] Diastolic blood pressure 2022-08-28 16:17:00 85 mm[Hg] [facility] Heart rate 2022-08-28 16:17:00 92 /min Unive [facility] Body height 2022-08-28 16:17:00 162.6 cm Univ [facility] Body weight 2022-08-28 16:17:00 61.326 kg Univ [facility] BMI 2022-08-28 16:17:00 23.21 kg/m2 Univ [facility] Systolic blood pressure 2022-08-28 16:17:00 147 mm[Hg] [facility] Diastolic blood pressure 2022-08-28 16:17:00 85 mm[Hg] [facility] Heart rate 2022-08-28 16:17:00 92 /min [facility] 2022-08-28 16:17:00 162.6 cm Univ [facility] Body weight 2022-08-28 16:17:00 61.326 kg Univ [facility] BMI 2022-08-28 16:17:00 23.21 kg/m2 Univ [facility] Systolic blood pressure 2022-07-18 20:23:00 134 mm[Hg] [facility] Diastolic blood pressure 2022-07-18 20:23:00 88 mm[Hg] [facility] Heart rate 2022-07-18 20:23:00 98 /min Unive [facility] Body temperature 2022-07-18 20:23:00 36.94 Rose [facility] Body height 2022-07-18 20:23:00 162.6 cm [facility] Body weight 2022-07-18 20:23:00 59.421 kg Univ [facility] BMI 2022-07-18 20:23:00 22.49 kg/m2 Univ [facility] Oxygen saturation in Arterial blood by Pulse oximetry 2022-07-18 20:23:00 100 /min [facility] height 2021-08-29 10:40:00 64.00 [in_i] Com [facility] weight 2021-08-29 10:40:00 146.0 [lb_av] Co [facility] temperature 2021-08-29 10:40:00 98.6 [degF] Com [facility] bmi 2021-08-29 10:40:00 25.06 kg/m2 Comm on [facility] oximetry 2021-08-29 10:40:00 99 % Commo n [facility] respiratory rate 2021-08-29 10:40:00 17 /min Common [facility] blood pressure systolic 2021-08-29 10:40:00 129 mm[Hg] Common [facility] blood pressure diastolic 2021-08-29 10:40:00 77 mm[Hg] Common [facility] height 2021-08-29 11:40:00 64.00 [in_i] Com [facility] weight 2021-08-29 11:40:00 146.0 [lb_av] Co [facility] temperature 2021-08-29 11:40:00 98.6 [degF] Com [facility] bmi 2021-08-29 11:40:00 25.06 kg/m2 Comm on [facility] oximetry 2021-08-29 11:40:00 99 % Commo n [facility] respiratory rate 2021-08-29 11:40:00 17 /min Common [facility] blood pressure systolic 2021-08-29 11:40:00 129 mm[Hg] Common [facility] blood pressure diastolic 2021-08-29 11:40:00 77 mm[Hg] Common [facility] height 2021-04-18 14:00:00 64.00 [in_i] Com [facility] weight 2021-04-18 14:00:00 153.2 [lb_av] Co mmon [facility] temperature 2021-04-18 14:00:00 97.2 [degF] Com mon [facility] bmi 2021-04-18 14:00:00 26.29 kg/m2 Comm on [facility] oximetry 2021-04-18 14:00:00 100 % Commo n [facility] respiratory rate 2021-04-18 14:00:00 18 /min [facility] blood pressure systolic 2021-04-18 14:00:00 190 mm[Hg] [facility] blood pressure diastolic 2021-04-18 14:00:00 98 mm[Hg] [facility] Procedures Procedure Date / Time Performed Performing Clinician Source VARICELLA-ZOSTER VACCINE, (SHINGRIX) 50 MCG/0.5 ML, IM 2022-11-19 17:30:52 Leonor Ashford [facility] AUTHORIZATION TO RE[facility] 2022-07-18 05:01:00 Doctor Unassigned, [place] [facility] Encounters Start Date/Time End Date/Time Encounter Type Admission Type Attending Clinicians Care Facility Care Department Encounter ID Source 2021-10-06 08:36:00 Outpatient Althea Grant [facility] [id number] [facility] 2021-08-25 08:32:06 Outpatient Althea Grant [facility] [id number] [facility] 2021-05-22 11:20:01 Outpatient Althea Grant [facility] [id number] [facility] 2021-03-08 12:21:04 Outpatient Althea Grant STLMLC STLMLC [id number] [facility] 2021-03-08 12:12:09 Outpatient Rudy Na [facility] [id number] [facility] 2021-03-08 12:07:01 [facility] [id number] 2021-03-08 12:04:39 Outpatient Althea Grant [facility] [id number] [facility] 2021-03-08 11:54:42 [facility] [id number] [facility] 2021-03-08 11:54:10 Outpatient Althea Grant [facility] [id number] [facility] 2021-03-08 11:28:46 [facility] [id number] [facility] 2020-12-12 08:36:55 Outpatient R LORNA BOLIVAR [facility] [id number] [facility] 2004-02-20 00:00:00 Inpatient P DOCTOR UNASSIGNED, D[facility] T[facility] [id number] [facility] 2023-05-10 15:30:00 2023-05-10 17:26:18 Outpatient LEONOR ARREGUIN [facility] [id number] [facility] 2023-05-10 16:00:00 2023-05-10 16:00:00 Digital Director Visit Lab, Ang - Db Dejon [facility] 1.2.840.114 350.1.13.10 4.2.7.2.686 [id number] [facility] 2023-05-10 15:30:00 2023-05-10 16:00:00 [facility] 1.2.840.114 350.1.13.10 4.2.7.2.686 [id number] [facility] 2023-04-05 15:30:00 2023-04-05 16:36:33 Outpatient R LEONOR ASHFORD [facility] [id number] [facility] 2023-04-05 16:00:00 2023-04-05 16:09:40 Digital Director Visit Lab, Keshawn Marcos [facility] [id number] 350.1.13.10 4.2.7.2.686 [id number] [facility] 2023-04-05 15:30:00 2023-04-05 16:00:00 [facility] 1..840.114 350.1.13.10 4.2.7.2.686 [id number] [facility] 2023-04-05 00:00:00 2023-04-05 00:00:00 Telephone [facility] 1.2840.114 350.1.13.10 4.2.7.2.686 [id number] [facility] 2023-04-01 08:30:00 2023-04-01 08:30:00 Outpatient R LEONOR ASHFORD [facility] [id number] [facility] 2023-03-28 00:00:00 2023-03-28 00:00:00 [facility] 1.2.840.114 350.1.13.10 4.2.7.2.686 [id number] [facility] 2023-03-28 00:00:00 2023-03-28 00:00:00 Telephone [facility] 1.2.840.114 350.1.13.10 4.2.7.2.686 [id number] [facility] 2023-03-28 00:00:00 2023-03-28 00:00:00 Nurse Triage [facility] 1.2.840.114 350.1.13.10 4.2.7.2.686 [id number] [facility] 2022-12-24 14:00:00 2022-12-24 14:00:00 Outpatient R LEONOR ASHFORD [facility] [id number] [facility] 2022-12-11 00:00:00 2022-12-11 00:00:00 Outpatient [id number] diyala_S PRIV [facility] [id number] [facility] 2022-11-27 00:00:00 2022-11-27 00:00:00 Telephone [facility] 1.2.840.114 350.1.13.10 4.2.7.2.686 [id number] [facility] 2022-11-20 00:00:00 2022-11-20 00:00:00 Telephone [facility] 1.2.840.114 350.1.13.10 4.2.7.2.686 [id number] [facility] 2022-11-20 00:00:00 2022-11-20 00:00:00 Telephone [facility] 1.2.840.114 350.1.13.10 4.2.7.2.686 [id number] [facility] 2022-11-19 12:00:00 2022-11-19 13:16:11 Outpatient R DEJON LEONOR [facility] [id number] [facility] 2022-11-19 12:00:00 2022-11-19 12:15:00 Digital Director Visit Lab, [facility] 1.84114 350.1.13.10 4.2.7.2.686 [id number] [facility] 2022-11-19 11:30:00 2022-11-19 12:00:00 Office Visit Leonor Ashford [facility] 1.20.114 350.1.13.10 4.2.7.2.686 [id number] [facility] 2022-09-20 00:00:00 2022-09-20 00:00:00 Telephone [facility] 1.114 350.1.13.10 4.2.7.2.686 [id number] [facility] 2022-09-03 10:00:00 2022-09-03 10:00:00 Office [facility] 1.114 350.1.13.10 4.2.7.2.686 [id number] [facility] 2022-09-03 10:00:00 2022-09-03 09:54:13 Outpatient R LISALEONOR Lay [facility] [id number] [facility] 2022-09-03 00:00:00 2022-09-03 00:00:00 Refill [facility] 1.84.114 350.1.13.10 4.2.7.2.686 [id number] [facility] 2022-08-28 11:00:00 2022-08-28 12:27:15 Office Visit [facility] 1.2.114 350.1.13.10 4.2.7.2.686 [id number] [facility] 2022-08-28 11:00:00 2022-08-28 12:27:15 Outpatient Vitaly COTTON SAMARIA [facility] [id number] [facility] 2022-07-26 00:00:00 2022-07-26 00:00:00 Patient Secure Msg Doctor Unassigned, [place] [facility] 1.840.114 350.1.13.10 4.2.7.2.686 [id number] [facility] 2022-07-24 00:00:00 2022-07-24 00:00:00 Letter (Out) Clinic, [facility] Nephrology [facility] 1.84.114 350.1.13.10 4.2.7.2.686 [id number] [facility] 2022-07-23 07:45:00 2022-07-23 08:00:00 Digital Director Visit Lab, Keshawn Ashford Leonor [facility] 1.840.114 350.1.13.10 4.2.7.2.686 [id number] [facility] 2022-07-23 07:45:00 2022-07-23 07:45:00 Outpatient LEONOR ARREGUIN [facility] [id number] [facility] 2022-07-23 00:00:00 2022-07-23 00:00:00 Patient Secure Msg Doctor Unassigned, [place] [facility] 1.84.114 350.1.13.10 4.2.7.2.686 [id number] [facility] 2022-07-20 00:00:00 2022-07-20 00:00:00 Telephone [facility] BUILD[facility] 1.2.840.114 350.1.13.10 4.2.7.2.686 [id number] [facility] 2022-07-18 16:15:00 2022-07-18 16:45:23 Digital Director Visit Lab, Keshawn - [facility] 1.2.840.114 350.1.13.10 4.2.7.2.686 [id number] [facility] 2022-07-18 15:00:00 2022-07-18 16:22:36 Outpatient Vitaly ASHFORD LEONOR [facility] [id number] [facility] 2022-07-18 15:00:00 2022-07-18 16:22:36 Office Visit Dejon [facility]ABRAZO [facility] MEDICAL OFFICE BUILDING 1.2.840.114 350.1.13.10 4.2.7.2.686 [id number] [facility] 2022-07-18 00:00:00 2022-07-18 00:00:00 Orders Only Doctor Unassigned, [place] [facility] 1.2.840.114 350.1.13.10 4.2.7.2.686 [id number] [facility] 2021-08-29 00:00:00 2021-08-29 00:00:00 SUB ANNUAL [facility] WELLNESS [facility] [id number] [facility] 2021-08-29 00:00:00 2021-08-29 00:00:00 OFFICE VISIT EST PT LEVEL 3 [facility] [id number] [facility] 2021-04-18 00:00:00 2021-04-18 00:00:00 OFFICE VISIT ESTAB PT LEVEL 4 [facility] [id number] [facility] 2020-08-26 09:15:00 2020-08-26 09:15:00 Outpatient LORNA DUQUE [facility] [id number] [facility] 2020-02-08 00:00:00 2020-02-08 00:00:00 Outpatient [facility] [id number] [facility] 2019-12-25 00:00:00 2019-12-25 00:00:00 Outpatient [facility] [id number] [facility] 2019-11-25 00:00:00 2019-11-25 00:00:00 Outpatient [facility] [id number] [facility] 2019-11-24 00:00:00 2019-11-24 00:00:00 Outpatient [facility] [id number] [facility] 2019-11-12 00:00:00 2019-11-12 00:00:00 Outpatient [facility] [id number] [facility] 2019-08-04 11:39:00 2019-08-04 11:39:[address] [facility] [id number] [facility] 2018-08-27 11:20:00 2018-08-27 11:20:00 [facility] [address] [facility] [id number] [facility] 2018-06-06 02:13:00 2018-06-06 02:13:00 [facility] [address] [facility] [id number] [facility] 2018-03-05 17:07:00 2018-03-05 17:07:00 [facility] [address] [facility] [id number] [facility] 2018-03-05 17:03:00 2018-03-05 17:03:00 [facility] [address] [facility] [place] [facility] [id number] [facility] 2018-03-05 10:48:00 2018-03-05 10:48:00 [facility] [address] [facility] [id number] [facility] 2018-02-25 10:45:00 2018-02-25 10:45:00 [facility] [id number] [facility] 2018-02-07 12:01:00 2018-02-07 12:01:00 [facility] [id number] [facility] 2017-10-01 13:45:00 2017-10-01 13:45:00 [facility] [place] [facility] [id number] [facility] 2017-09-26 11:12:00 2017-09-26 11:12:00 [facility] [id number] [facility] 2017-09-04 11:15:00 2017-09-04 11:15:00 [facility]patient [facility] [id number] [facility] 2004-01-04 14:10:00 2004-01-06 16:32:00 Inpatient P ABHINAV CALERO [facility] [id number] [facility] 2003-12-31 00:00:00 2003-12-31 23:59:00 Outpatient P SANDRA REECE [facility] [id number] [facility] 2003-12-28 00:00:00 2003-12-28 23:59:00 Outpatient P ABHINAV CALERO [facility] [id number] [facility] Notes Date/Time Note Provider Source 2023-05-10 16:00:00 M/ffjeZs1O9R733SZsXY ibORp+W979yaae n6rKTMdtXZauIzsI9PSDH7M1UQfIyY7207 -03-29T16:00:00 Images from the original note were not included.Venipuncture collection performed by clean technique on the right anticubitus. Total of 1 attempts were made. Slight pressure and a bandage/dressing were applied to the site(s). The patient experienced no complications. The following specimens were processed according to instructions and sent to [facility] laboratories per lab order on 05/10/2023:LT BLUESSTREDLAV 1PPTDK GREEN (LiHep)DK GREEN (SodH)GRAYDK BLUE (K2)DK BLUE (S)ACDBlood CultureNIPT/NTD 65165-4Rddat YlujQR3694-86-24P16:48:01Nurse NoteTXT1.2.840.443845.1.13.104.2.7 .2.103491|[id number] for patient hlvh97734-0Fjkbn NoteLNNARRATIVEFormatted C-CDA narrative text[id number] 08PCUTQFVESFUGMRNUWWBHDY1920-68-25 T15:48:011.2.840.392253.1.72.3.15| 1.2.840.677085.1.13.104.2.7.2.7278 [id number] [facility] 2023-04-08 16:30:36 xCSC1YTpSptTGr8ebHfY fdwq3CQqfVyIzz lxvkcvZcc5hMeU+JsMuRh1avzfF/KJ41282023T16:30:36 Patient is returning a call. 15931-1Jczvgrrhk encounter BhuuNA4433-50-57E56:30:59Telephone encounter NoteTXT1.2.840.101181.1.13.104.2.7 .2.108767|[id number] for patient ldcm32164-0YqzuQCZKIVXHGNOMsmjjnes d C-CDA narrative [id number] A Smith[address]TXTX[address] 14BGEJXVUAVZNQQSGGDTUDZR7001-14-92 T16:30:591.2.840.474297.1.72.3.15| 1.2.840.413246.1.13.104.2.7.2.7278 [id number] Norma Garcia [facility] 2023-04-08 06:26:10 3NkNIWvaY/1JMG7rLJPD MTUH0Bo3RHATJk fmlUuQZSPCUymw5qdzN4wzI9CMsiwB8628 -02-26T06:26:10 See encounter from 04/06/2023.Dr. Hameed 29355-6Uuspdpyah encounter OzeaTH4309-46-69L94:26:50Telephone encounter NoteTXT1.2.840.122568.1.13.104.2.7 .2.347125|[id number] for patient dpru36656-6CxzsCZTEHCZCCJVSqkpwzkv d C-CDA narrative text-FAMILY MEDICINE STAFF-FAMILY MEDICINE STAFF[address] Pe[id number] 10TEOEVQVHOOECGASFTKVFPN4837-11-04 T06:26:501.2.840.726314.1.72.3.15| 1.2.840.440954.1.13.104.2.7.2.7278 [id number] -FAMILY MEDICINE STAFF [facility] 2023-04-05 23:36:44 NLvt9LIvnCnjRwyC6kYP a1VWm8BqRpQfk2 nD+vrUlJHw3z7yPSMVc/07eUKPfgpk5166 -02-23T23:36:44 Tyra Schneidern is a 52 year old female[facility] Lab calling to report critical LabPage to [facility] 11:35pConnected to Dr Yeboah @ 11:39p 26599-6Wrjpfobkr encounter QmdwQM2483-87-09P21:41:24Telephone encounter NoteTXT1.2.840.256538.1.13.104.2.7 .2.366290|[id number] for patient yftg77353-6RzrmZPQVTHLOVHGRayydbkg d C-CDA narrative khkd759371424Sguogp L Anderson[address] Ar[id number] 39POGPXPJBRCXIXIBRKIUPHW7669-77-14 T23:41:241.2.840.728205.1.72.3.15| 1.2.840.750768.1.13.104.2.7.2.7278 [id number] [place] [facility] 2023-04-05 16:00:00 Wfbn58/wZmoPfTqzRQlG FIe9YeZRCItiuW +QlhXpnRnFVVv5Cb/CeGnIV1o+4DgN09882023T16:00:00 Images from the original note were not included.Venipuncture collection performed by clean technique on the right anticubitus. Total of 1 attempts were made. Slight pressure and a bandage/dressing were applied to the site(s). The patient experienced no complications. The following specimens were processed according to instructions and sent to [facility] laboratories per lab order on 04/05/2023:LT BLUESST 2REDLAV 2PPTDK GREEN (LiHep)DK GREEN (SodH)GRAYDK BLUE (K2)DK BLUE (S)ACDBlood CultureNIPT/NTDPatient has been identified by and name and was provided with cup, antiseptic towelette, and clean catch instructions. 1 urine specimen(s) sent.Unpreserved 1Urine CultureAptima tubeOther urine 84949-3Qvimt IryzIO2414-72-08V72:16:35Nurse NoteTXT1.2.840.758577.1.13.104.2.7 .2.364754|[id number] for patient akec51659-1Hhocb NoteLNNARRATIVEFormatted C-CDA narrative textUT[id number] 53SHUHEJMIRIJAZMHITATLFB4797-96-80 T16:16:351.2.840.804839.1.72.3.15| 1.2.840.389711.1.13.104.2.7.2.7278 [id number] [facility] 2023-03-28 12:04:00 TFYvnpyjkVbDWAnTM7Ru m5PLppz9wWDOKM +rMlcatVy/NITEulhOXcv2jLHanIER6245 -02-15T12:04:00 Regarding: patient states she needs meds CRISTELA or she might do something----- Message from Daniel Faye sent at 03/28/2023 12:03 PM CLERICAL RECEPTIONIST -----[facility] /female 52 years old. Patient needs refill of citalopram 10 mg tablet. Patient takes medicine for depression. I'm ordering her more medicine and patient states she needs meds CRISTELA or she might do something. Are any nurses available to talk to her. she would like to talk to a nurse. 96821-4Tknzwsofk encounter NdgrQV4665-08-93Q13:04:26Telephone encounter NoteTXT1.2.840.732084.1.13.104.2.7 .2.355064|[id number] for patient dmgz03030-7OsfdQQWAJMBSANTLghdfblw d C-CDA narrative text[address] NvnySxdvahczkXjtsaduztKUSP65564032 98ZUVWOFUQCWKVAXVYEEOLPB3176-88-06 T12:04:261.2.840.480485.1.72.3.15| 1.2.840.175194.1.13.104.2.7.2.7278 [id number] [facility] 2023-03-28 12:04:00 Vg0auGbtFy57yUJCJkm4 mGp7MlOi2y0A6Q fUr1Lrg4crkyBvmHae9FY5py2WbWOi7782 -02-15T12:04:00 Reason for DispositionSometimes has thoughts of suicideProtocols used: Gvtejuyblb-GTPZG-HVQ spoke to both the patient and her daughter Jamila. The patient was crying on the phone. She states she is calling for a refill of her Citalopram 10 mg, "before I do something stupid". She states she has been off the medication for 2 weeks, and has been taking at night. I asked her if she feels like wanting to hurt herself right now, "it comes and goes. Sometimes I feel like I dont want to live." She states her daughter is there with her now, with her 2 grand kids, so she is not alone. "My daughter is trying to get me out of the house for a little while, before my counselors appointment today at 2 pm."She states she has felt this way in the past when she has been off her medication, "for the same amount of time.I had to be committed, and I dont want to be committed again. I know that if I can get the medication today, and start the medication today, I will be ok tomorrow. The way Im feeling now will be gone."I asked her if she has tried to hurt herself. She stated "I tried to overdose 3 weeks ago, but my was here."I asked her if I could have permission to speak to her daughter Jamila, who she stated was there with her. She gave me permission. I spoke with Jamila. Jamila states she and her 2 children live there, her sister and a brother live there, and her Uncle, the pts brother, also lives there, along with her Mom and her Step Dad. Jamila states her mom just found out that her of 24 years has been cheating on her for the past 8 months.Jamila states her mom is legally blind. Jamila states her mom has lots of support at home, and she has been watching her closely, "keeping an eye on her" since finding out her Mom tried to overdose 3 weeks ago, after finding out about her 's cheating. Jamila states they did schedule the Counsellor appointment for today, due to everything going on at home. Jamila states she will be driving her to that appointment. Jamila states her Mom is not herself when not taking her medication.I advised Jamila to call 911 if she feels that her mom is a threat to herself. I advised Jamila to remove all the extra pills or medications out of her moms room. She states that when her Grandma , her Mom kept her medications. Jamila states "her and her siblings will clean out her room." I informed Jamila that there was an RN available 03/09 here as well. I informed Jamila that I was able to schedule an appt in the clinic on Saturday, but would request a sooner appt.I spoke with the patient again, and had her promise to me that she would not hurt herself. She stated she would not hurt herself.SONAL 11/19/22NOV 04/01/2023Last prescribed on 07/18/2022Message routed to the clinic for a sooner appointment than Saturday. Patient requesting an appointment on Saturday03/29/2023.Kiana SerranoN 90565-3Plkgxdfxi encounter DfzpOK5307-18-11M40:05:17Telephone encounter NoteTXT1.2.840.215114.1.13.104.2.7 .2.766476|[id number] for patient tibt29442-4SovfGSYLMXQJFKQIfayiaol d C-CDA narrative textUT[address]G[id number] 69VUMJWWGCSEJKTYBHWVBCYN4691-71-63 T13:05:171.2.840.860518.1.72.3.15| 1.2.840.890215.1.13.104.2.7.2.7278 [id number] [facility] 2023-03-28 12:04:00 NjLYaexxtGWBZviQ7V5m wi671tJxQQFESd 5h80iBD9kPwEJVPFUKYhLdf4a2hbeO8146 -02-15T12:04:00 PSS please reach out to patient to see if they can get a sooner appt.. Currently scheduled to come in on 04/01/23. Thank you 69540-1Jxatcqpvx encounter WwtoJA7540-89-82R33:40:39Telephone encounter NoteTXT1.2.840.744269.1.13.104.2.7 .2.402540|[id number] for patient dpcb15260-9GpprAMDJEQSVLPKYurhhrmx d C-CDA narrative dfiq002428826Hczne J Bunte RN[address] [id number] 36UQCFJITTOTWSNIXJOTNRSD1448-73-06 T10:40:391.2.840.171197.1.72.3.15| 1.2.840.289831.1.13.104.2.7.2.7278 [id number] Greer Noble RN [facility] 2023-03-28 12:04:00 ANvUTLLMPcF5qQa1vs/F ae20DBEAU82iE0 PgNMxhIhnOz7sgtsfjMB3UsCjqj2dY9151 -02-15T12:04:00 When I saw pt in 11/2022 she has stopped Citalopram r/t SE of nausea. I do recommend she go to the ER if there is concerns about HI/SI. 47152-4Fkztnydwq encounter MbkeFW4464-68-28K23:51:39Telephone encounter NoteTXT1.2.840.426474.1.13.104.2.7 .2.821966|[id number] for patient nowi24239-4NdauVCAESJGEFTDAbreavtc d C-CDA narrative ThinkHR[id number] 70LOELCFFFFLOFLVWTVHPXIO1266-39-98 T10:51:391.2.840.925892.1.72.3.15| 1.2.840.765066.1.13.104.2.7.2.7278 [id number] [facility] 2023-03-28 11:56:40 uYdHwMngOgxW2GPUNdli +FMgbrj6EqIars KzdUN6/RiZWCwldB6Vsdjd69Pj3his3524 -02-15T11:56:40 Tyra Yo is a 52 year old female is requesting a refill of citalopram 10 mg tablet CRISTELA. Patient is completely out. 15498-9Vesvgztam encounter FdxhYO3524-61-81H14:02:54Telephone encounter NoteTXT1.2.840.810080.1.13.104.2.7 .2.119563|[id number] for patient sgpu30249-1GkruAXNEHNXSOHTYfighfpu d C-CDA narrative text[address]veston[place]onTXTX[address] 17AMETBZCGMQPWTLFNAIFLKT3411-57-64 T12:02:541.2.840.549947.1.72.3.15| 1.2.840.683137.1.13.104.2.7.2.7278 [id number] [facility] 2022-09-20 15:59:54 FJzHCCHofD0A2zJiJYkW tobWpBdzJGfepE U7kq2pfxTJetR9hUng+uiXWQnIxLJ21418 -08-10T15:59:54 Submitted order for [employer] system to [employer] through [employer]. 10366-1Txyhhjnpk encounter ZhnhFX7056-97-75O04:00:24Telephone encounter NoteTXT1.2.840.322881.1.13.104.2.7 .2.937025|5706756245HXNguxhgndk for patient inys57543-6GkonZB372849908Qiwb Cheikh Henao [address] PvqyYqqiujolqTbtdklzidCEFF29475103 66FBRLQXKZWAEUSTGMRKKHIA4926-29-98 T16:00:241.2.840.954610.1.72.3.15| 1.2.840.887249.1.13.104.2.7.2.7278 [id number] Leandra Henao LVN [facility] 2022-08-28 11:00:00 R4Alf18sO8dBJbMQqMuU jDmj+B5QhP0ph0 Bj7ipXxAfRSVTCCcWBmHyhrZFj9Fs68981 -07-18T11:00:00Addended by: SAMARIA RUTHERFORD on: 09/03/2022 06:12 PMModules accepted: Orders 08307-3Hnryzubi QyyfbtmtZO7680-69-76B86:12:10Adden dum DocumentTXT1.2.840.261562.1.13.104 .2.7.2.721439|[id number] e for patient hzjb51439-0YzwvEBFQKPGAEKJNlfbbbir d C-CDA narrative text[address]TX[address] 41FVTYHDXAHFZRTOLLOVAGXL5477-97-36 T18:12:101.2.840.061273.1.72.3.15| 1.2.840.454557.1.13.104.2.7.2.7278 [id number] [facility] 2022-08-28 11:00:00 5Dplvcb1mPMsj9iF7+zy Je/Ca4z0u1D5XL 6otZHlNggDnJZl3s9bmhOdeL1wqScB2035 -07-18T11:00:00Addended by: SAMARIA RUTHERFORD on: 09/20/2022 02:53 PMModules accepted: Orders 11225-5Dqalsenn PhkqeduqWK2878-47-07K07:53:37Adden dum DocumentTXT1.2.840.763840.1.13.104 .2.7.2.526851|[id number] e for patient uvvm33607-2AsjbSGAEBLVNLYFAhqubmvx d C-CDA narrative text[address] 44FZHDJNCFYCUBNTUKJMZRCD5962-51-08 T14:53:371.2.840.280575.1.72.3.15| 1.2.840.999123.1.13.104.2.7.2.7278 [id number] [facility]
[2023-05-13 11:39] LABS: Specific Gravity 1.014 (1.005-1.030); Urine Bilirubin NEGATIVE (Negative); Urine Blood 3+ (OVER) (Negative); Urine Clarity Extremely Turbid (Clear); Urine Color Orange (Yellow); Urine Glucose 3+ (Negative); Urine Ketones NEGATIVE (Negative); Urine Micro Reflex YN NO BILL NO MICROSCOPIC; Urine Nitrite NEGATIVE (Negative); Urine Protein 3+ (Negative); Urine Urobilinogen Normal (Normal)
[2023-05-13] MEDS ORDERED: ONDANSETRON 4 MG/2 ML VIAL ONE (11:43)
[2023-05-13] MEDS ORDERED: NA CHLORIDE 0.9% 1,000 ML ONE (11:44)
[2023-05-13 11:47] LABS: Absolute Basophils 0.1 K/uL (0-0.5); Absolute Monocytes 0.4 K/uL (0.1-1.3); Absolute Neutrophil 9.5 K/uL (1.8-8.0); Basophils % 0.4 % (0-1.3); Eosinophils % 0.3 % (0-4.4); Hematocrit 35.8 % (36.0-45.0); Hemoglobin 11.8 g/dL (12.0-15.0); Lymphocytes % 16.5 % (15.3-44.8); MCH 26.7 pg (27.0-35.0); MCHC 32.9 g/dL (32.0-36.0); MCV 81.2 fL (80-100); MPV 8.7 fL (7.6-11.3); Monocytes % 3.3 % (3.3-12.3); Neutrophils % 79.5 % (41.7-73.7); Platelets 302 thou/uL (152-406); RBC Red Blood Cell Count 4.41 M/uL (3.86-4.86); Red Cell Distribution Width 14.2 % (12.1-15.2)
[2023-05-13 12:04] LABS: Anion Gap 10.3 mEq/L (5.0-15.0); Potassium 5.3 mEq/L (3.5-5.1)
--- NOTE | 2023-05-13 12:41 | EDPHYS ---
Physician Documentation [facility] Name: Tyra Stewart Age: 52 yrs Sex: Female : 1970 Arrival Date: 05/13/2023 Time: 10:42 Bed 10 Private MD: ED Physician Brant Barth HPI: 05/12 11:09 This 52 yrs old Female presents to ER via Ambulatory with complaints of ec2 Urinary Problem. 11:09 Patient arrives today for evaluation of urinary complaints. Patient reports 2 days of ec2 symptoms, reports dysuria as well as increasing urinary frequency. Reports no fevers or chills or vomiting.. Historical: - Allergies: 11:06 Ciprofloxacin; ph 11:06 piperacillin; ph 11:06 Rocephin; ph 11:06 tazobactam; ph 11:06 Zosyn; ph - PMHx: 11:06 Anxiety; Diabetes - IDDM; Hypertension; kidney failure; legally blind; PE in right lung;ph - PSHx: 11:06 section; Cholecystectomy; ph - Immunization history:: Adult Immunizations unknown. - Social history:: Smoking status: unknown. ROS: 11:09 Constitutional: as per hpi ec2 Exam: 11:09 Constitutional: GEN: NAD Head: atraumatic Eyes: EOMI Ears: External ears are ec2 normal. CV: Tachycardia LUNGS: no respiratory distress ABD: non-distended, soft, nontender, guarding, not rigid SKIN: no evidence of rashes MSK: no evidence of trauma NEURO: moves all extremities equally Vital Signs: 11:03 BP 130 / 94; Pulse 105; Resp 18; Temp 97.3; Pulse Ox 100% on R/A; Weight 60.78 kg; ph Height 5 ft. 4 in. ; 12:33 BP 128 / 89; Pulse 92; Resp 17; Pulse Ox 99% on R/A; rs5 13:00 BP 132 / 91; Pulse 77; Resp 18; Pulse Ox 98% on R/A; rs5 11:03 Body Mass Index 23.00 (60.78 kg, 162.56 cm) ph MDM: 11:05 Patient medically screened. ec2 11:09 Data reviewed: vital signs. ED course: Patient arrives today due to concern for urinary ec2 complaints per examination remarkable for well-appearing nontoxic dividual is slightly tachycardic. Will obtain lab work, urine studies and further assess.. 12:06 ED course: CBC reassuring, slight leukocytosis at 11.9. . ec2 12:39 ED course: Of note patient with renal dysfunction noted, when compared to previous, ec2 this appears fairly similar with a recent creatinine 1.9. 12:40 ED course: Urine infectious. Will discharge with antibiotics.. ec2 05/12 11:06 Order name: CBC with Diff; Complete Time: 12:05 ec2 05/12 11:06 Order name: BMP; Complete Time: 12:05 ec2 05/12 11:06 Order name: UAM; Complete Time: 12:05 ec2 05/12 12:22 Order name: Vital Signs; Complete Time: 12:33 ec2 Administered Medications: 12:06 Drug: NS 0.9% IV 1000 ml IV at 1 bolus Per protocol; 1000 mL bolus Route: IV; Rate: 1 ph bolus; Site: right antecubital; 12:15 Follow up: Response: No adverse reaction rs5 13:00 Follow up: IV Status: Completed infusion rs5 12:06 Drug: Ondansetron IVP 4 mg IVP once; over 2 minutes Route: IVP; Site: right antecubital;ph 12:20 Follow up: Response: No adverse reaction rs5 12:40 Drug: Trimethoprim-Sulfamethoxazole PO (160 mg-800 mg (DS) 1 tablet PO once Route: PO; rs5 13:00 Follow up: Response: No adverse reaction rs5 Disposition Summary: 05/13/23 12:40 Discharge Ordered Notes: Location: Home ec2 Condition: Stable ec2 Diagnosis - UTI/ Urinary tract infection, site not specified ec2 Followup: ec2 - With: Private Physician - When: - Reason: Re-evaluation by your physician Discharge Instructions: - Discharge Summary Sheet ec2 - Urinary Tract Infection, Adult ec2 Forms: - Medication Reconciliation Form ec2 - Thank You Letter ec2 - Antibiotic Education ec2 - Prescription Opioid Use ec2 - Patient Portal Instructions ec2 - Leadership Thank You Letter ec2 Prescriptions: - Bactrim DS 800-160 mg Oral Tablet - take 1 tablet ORAL route every 12 hours for 7 days; 14 tablet; Refills: 0, ec2 Product Selection Permitted Signatures: [facility] Tammy Valdovinos RN RN ph Suleiman Ruiz, RN RN rs5 Brant Barth MD MD ec2
--- NOTE | 2023-05-13 12:41 | ER ---
Nurse's Notes [facility] Name: Tyra Stewart Age: 52 yrs Sex: Female : 1970 Arrival Date: 05/13/2023 Time: 10:42 Bed 10 Private MD: Diagnosis: UTI/ Urinary tract infection, site not specified Presentation: 05/12 11:03 Chief complaint: Patient states: Urinary frequency that started Saturday,burning w/ ph urination that started today, no fver or chills. Coronavirus screen: Vaccine status: Patient reports receiving the 2nd dose of the covid vaccine. Ebola Screen: No symptoms or risks identified at this time. Initial Sepsis Screen: Does the patient meet any 2 criteria? No. Patient's initial sepsis screen is negative. Does the patient have a suspected source of infection? No. Patient's initial sepsis screen is negative. Risk Assessment: Do you want to hurt yourself or someone else? Patient reports no desire to harm self or others. Onset of symptoms was May 13, 2023 at 11:06. 11:03 Method Of Arrival: Ambulatory ph 11:03 Acuity: TASHI 3 ph Triage Assessment: 11:09 General: Appears in no apparent distress. Behavior is calm, cooperative. Pain: Denies ph pain. : Reports burning with urination, urinary frequency. Historical: - Allergies: 11:06 Ciprofloxacin; ph 11:06 piperacillin; ph 11:06 Rocephin; ph 11:06 tazobactam; ph 11:06 Zosyn; ph - PMHx: 11:06 Anxiety; Diabetes - IDDM; Hypertension; kidney failure; legally blind; PE in right lung;ph - PSHx: 11:06 section; Cholecystectomy; ph - Immunization history:: Adult Immunizations unknown. - Social history:: Smoking status: unknown. Screenin:05 [place] [facility] Fall Risk Assessment (Adult) History of falling in the last 3 months, rs5 including since admission No falls in past 3 months (0 pts) Confusion or Disorientation No (0 pts) Intoxicated or Sedated No (0 pts) Impaired Gait No (0 pts) Mobility Assist Device Used No (0 pt) Altered Elimination No (0 pt) Score/Fall Risk Level 0 - 2 = Low Risk Oriented to surroundings, Maintained a safe environment. 11:05 Abuse screen: Denies threats or abuse. Nutritional screening: No deficits noted. rs5 Tuberculosis screening: No symptoms or risk factors identified. Assessment: 11:05 General: Appears in no apparent distress. uncomfortable, Behavior is calm, cooperative. rs5 Pain: Denies pain. Neuro: Level of Consciousness is awake, alert, obeys commands, Oriented to person, place, time, situation. Cardiovascular: Patient's skin is warm and dry. Respiratory: Respiratory effort is even, unlabored, Respiratory pattern is regular, symmetrical. GI: Abdomen is round non-distended. : Reports burning with urination. EENT: No signs and/or symptoms were reported regarding the EENT system. Derm: No signs and/or symptoms reported regarding the dermatologic system. Musculoskeletal: Range of motion: intact in all extremities. 12:10 Reassessment: Patient and/or family updated on plan of care and expected duration. Pain rs5 level reassessed. Patient is alert, oriented x 3, equal unlabored respirations, skin warm/dry/pink. Patient denies pain at this time. Patient states feeling better. 12:50 Reassessment: No changes from previously documented assessment. rs5 Vital Signs: 11:03 BP 130 / 94; Pulse 105; Resp 18; Temp 97.3; Pulse Ox 100% on R/A; Weight 60.78 kg; ph Height 5 ft. 4 in. ; 12:33 BP 128 / 89; Pulse 92; Resp 17; Pulse Ox 99% on R/A; rs5 13:00 BP 132 / 91; Pulse 77; Resp 18; Pulse Ox 98% on R/A; rs5 11:03 Body Mass Index 23.00 (60.78 kg, 162.56 cm) ph ED Course: 10:46 Patient arrived in ED. mr 10:49 Brant Barth MD is Attending Physician. ec2 11:05 Patient has correct armband on for positive identification. Placed in gown. Bed in low rs5 position. Call light in reach. Side rails up X2. 11:06 Triage completed. ph 11:06 Arm band placed on Patient placed in waiting room, Patient notified of wait time. ph 11:34 Tammy Benjamin, RN is Primary Nurse. ph 11:40 BMP Sent. em1 11:40 CBC with Diff Sent. em1 11:41 Initial lab(s) drawn, by me, sent to lab. Inserted saline lock: 20 gauge in right em1 antecubital area, using aseptic technique. Blood collected. 12:00 No provider procedures requiring assistance completed. rs5 13:00 IV discontinued, intact, bleeding controlled, No redness/swelling at site. Pressure rs5 dressing applied. Administered Medications: 12:06 Drug: NS 0.9% IV 1000 ml IV at 1 bolus Per protocol; 1000 mL bolus Route: IV; Rate: 1 ph bolus; Site: right antecubital; 12:15 Follow up: Response: No adverse reaction rs5 13:00 Follow up: IV Status: Completed infusion rs5 12:06 Drug: Ondansetron IVP 4 mg IVP once; over 2 minutes Route: IVP; Site: right antecubital;ph 12:20 Follow up: Response: No adverse reaction rs5 12:40 Drug: Trimethoprim-Sulfamethoxazole PO (160 mg-800 mg (DS) 1 tablet PO once Route: PO; rs5 13:00 Follow up: Response: No adverse reaction rs5 Medication: 12:05 VIS not applicable for this client. rs5 Outcome: 12:40 Discharge ordered by . ec2 13:00 Discharged to home ambulatory, rs5 13:00 Condition: stable rs5 13:00 Discharge instructions given to patient, family, Instructed on discharge instructions, follow up and referral plans. medication usage, Demonstrated understanding of instructions, follow-up care, medications, Prescriptions given X 1, 13:01 Patient left the ED. rs5 Signatures: Vero Darling, Cristhian Reg Filipe Haile em1 Tammy Benjamin RN RN Suleiman Ruiz RN RN rs5 Brant Barth MD MD ec2 Corrections: (The following items were deleted from the chart) 13:42 13:07 Patient left the ED. rs5
[2023-05-13] MEDS ORDERED: SMZ./TMP. 800/160 MG TABLET ONE (13:00)
[2023-05-13 17:53] VITALS: BP 130/94; TEMP 97.3; O2SAT 100
== END 2023-05-13 13:07 | disposition home or self-care (01) ==
LOC: ER 10:42
DX: N39.0 Urinary tract infection, site not specified (principal); Z88.1 Allergy status to other antibiotic agents; Z88.3 Allergy status to other anti-infective agents; Z88.8 Allergy status to other drugs, medicaments and biological substances
CPT/HCPCS: 96361; 85025; 81001; 80048; 36415; 96374; 99284; J2405; J7030

== ENCOUNTER 2023-10-15 09:20 | Emergency (ER) | payer BC, OTHER ==
--- OUTSIDE RECORDS SUMMARY | 2023-10-15 09:25 | XMS REPORT | Continuity of Care Document ---
Author Name Unknown Address [address] [place] [address] [facility] thconnect Address [address] [place] [address] Care Team Providers Care Application Processor Name Role Phone Leonor Romeo Primary Care Physician [phone] Althea Grant L Attending Clinician Unavailable LORNA BOLIVAR Attending Clinician Unavailab le DOCTOR UNASSIGNED, NO NAME Attending Clinician [facility] Shital Hameed MD Attending Clinician Leonor Romeo Attending Clinician [phone] LEONOR ASHFORD Attending Clinician Unavailable Lab, Ang - Db Attending Clinician Unavailable [email or web address] Attending Clinician UnavailSAMARIA Moreira Attending Clinician Unavailable Samaria Rutherford Attending Clinician [phone] Doctor Unassigned, [place] Attending Clinician [facility] Nephrology Attending Clinician [phone] ABHINAV CALERO Attending Clinician UnavailABHINAV Sanchez Attending Clinician Unavailab SANDRA Ashton Attending Clinician UnavailLORNA Mathews Admitting Clinician UnavailRICO Alvarez Admitting Clinician UnavailLEONOR Figueroa Admitting Clinician Unavailable [email or web address] Admitting Clinician UnavailLONG Romo Admitting Clinician Unavailable SANDRA REECE Admitting Clinician ABHINAV Osorio Admitting Clinician Unavail le Payers Payer Name Policy Type Policy Number Effective Date Expirati on Date Source MEDICARE PART A \\T\\ [id number] 2014 00:00:00 Problems Condition Name Condition Details Condition Category Status Onset Date Resolution Date Last Treatment Date Treating Clinician Comments Source Vaginal discharge Vaginal Discharge Problem Active 09-25 00:00: 00 [facility] Female stress incontinen ce Female Stress Incontinen ce Problem Active 09-25 00:00: 00 [facility] Atrophic vaginitis Atrophic Vaginitis Problem Active 09-25 00:00: 00 [facility] Bacterial vaginosis Bacterial Vaginosis Problem Active 09-04 00:00: 00 [facility] Depressive disorder Depressive Disorder Problem Active 09-02 00:00: 00 [facility] Neuropathy Neuropathy Problem Active 09-02 00:00: 00 [facility] Essential hypertensi on Essential Hypertensi on Problem Active 09-02 00:00: 00 [facility] Chronic kidney disease Chronic Kidney Disease Problem Active 09-02 00:00: 00 [facility] Acute vaginitis Acute Vaginitis Problem Active 09-02 00:00: 00 [facility] Dysuria Dysuria Problem Active 09-02 00:00: 00 [facility] Burning sensation Burning Sensation Problem Active 09-02 00:00: 00 [facility] Diabetes mellitus Diabetes Mellitus Problem Active 09-02 00:00: 00 [facility] Type 2 diabetes mellitus Type 2 Diabetes Mellitus Problem Active 09-02 00:00: 00 [facility] Anxiety Anxiety Problem Active 09-02 00:00: 00 [facility] Mixed anxiety and depressive disorder Mixed Anxiety and Depressive Disorder Problem Active 09-02 00:00: 00 [facility] Acute vaginitis Acute vaginitis Disease Active 24 00:00: 00 [facility] Dysuria Dysuria Disease Active 07-04 00:00: 00 [facility] Arthralgia of both hands Arthralgia of both hands Disease Active 2022-02 0 00:00: 00 [facility] Need for hepatitis C screening test Need for hepatitis C screening test Disease Active 2022-02 009 00:00: 00 [facility] Chronic kidney disease Chronic kidney disease Disease Active 08-28 00:00: 00 [facility] Depression Depression Disease Active 08-28 00:00: 00 [facility] Serous retinal detachment , unspecifie d eye Serous retinal detachment , unspecifie d eye Disease Active 08-28 00:00: 00 Overview: Formattin g of this note might be different from the original. RIGHT eye [facility] Neuropathy Neuropathy Disease Active 08-28 00:00: 00 [facility] HTN (hypertens ion) HTN (hypertens ion) Disease Active 07-18 00:00: 00 [facility] Diabetes Diabetes Disease Active 07-18 00:00: 00 [facility] Screening for colorectal cancer Screening for colorectal cancer Disease Active 07-18 00:00: 00 [facility] Essential hypertensi on Essential hypertensi on Disease Active 07-18 00:00: 00 [facility] Type 2 diabetes mellitus with chronic kidney disease, without long-term current use of insulin, unspecifie d CKD stage Type 2 diabetes mellitus with chronic kidney disease, without long-term current use of insulin, unspecifie d CKD stage Disease Active 07-18 00:00: 00 [facility] Diarrhea, unspecifie d type Diarrhea, unspecifie d type Disease Active 07-18 00:00: 00 [facility] Anxiety and depression Anxiety and depression Disease Active 07-18 00:00: 00 [facility] keisha [facility] Menopause present Menopause Present Problem Active 09-05 00:00: 00 [facility] Anemia due to chronic blood loss Anemia Due to Chronic Blood Loss Problem Active 08-27 00:00: 00 [facility] Secondary dysmenorrh ea Secondary Dysmenorrh ea Problem Active 08-12 00:00: 00 [facility] Polymenorr hea Polymenorr hea Problem Active 08-12 00:00: 00 [facility] Bicornuate uterus Bicornuate Uterus Problem Active 08-12 00:00: 00 [facility] Gynecologi susan examinatio n abnormal Gynecologi susan Examinatio n Abnormal Problem Active 08-12 00:00: 00 [facility] Excessive menstruati on with irregular cycle Excessive Menstruati on with Irregular Cycle Problem Active 08-12 00:00: 00 [facility] Dysmenorrh ea Dysmenorrh ea Problem Active 07-15 00:00: 00 [facility] Genuine stress incontinen ce Genuine Stress Incontinen ce Problem Active 07-15 00:00: 00 [facility] Irregular periods Irregular Periods Problem Active 07-15 00:00: 00 [facility] Hyperglyce stu due to type 2 diabetes mellitus Hyperglyce stu Due to Type 2 Diabetes Mellitus Problem Active 07-15 00:00: 00 [facility] Pelvic and perineal pain Pelvic and Perineal Pain Problem Active 07-15 00:00: 00 [facility] Trigger finger Trigger finger Problem Active [facility] [id number] long term care pharmacist current use of insulin Problem Active [facility] Legal blindness Legal blindness Problem Active [facility] Anemia Anemia Problem Active [facility] Vitamin D deficiency Vitamin D deficiency Problem Active [facility] Diabetes mellitus without complicati on Diabetes Problem Active [facility] Hyperlipid emia Hyperlipid emia Problem Active [facility] Premenopau braeden menorrhagi a Excessive bleeding in premenopau braeden period Problem Active [facility] Microalbum inuria Microalbum inuria Problem Active [facility] Chronic fatigue syndrome Chronic fatigue Problem Active [facility] [id number] Moderate episode of recurrent major depressive disorder Problem Active [facility] Chronic kidney disease stage 3 +5th digit eff 11/12/19*Ch ronic kidney disease, stage 3 Problem Active [facility] Diabetic polyneurop athy Secondary diabetes with peripheral neuropathy Problem Active [facility] [id number] 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, unspecifie d proliferat jewell retinopath y type Problem Active [facility] Allergies, Adverse Reactions, Alerts Allergy Name Allergy Type Status Severity Reaction(s) Onset Date Inactive Date Treating Clinician Comments Source NO KNOWN ALLERGIE S Drug Class Active [facility] Social History Social Habit Start Date Stop Date Quantity Comments Source History of Tobacco Use [facility] Gender identity [facility] Sexual orientation [facility] History of Social function 2023-07-05 00:00:00 2023-07-05 00:00:00 [facility] Tobacco use and exposure 2022-07-18 00:00:00 2022-07-18 00:00:00 Smokeless tobacco non-user [facility] Sex assigned at 1970 00:00:00 1970 00:00:00 [facility] Smoking Status Start Date Stop Date Source Never Smoker [facility] Medications Ordered Medication Name Filled Medication Name Start Date Stop Date Current Medication? Ordering Clinician Indication Dosage Frequency Signature (SIG) Comments Components Source fluconazole (DIFLUCAN) 150 mg tablet 07-08 00:00: 00 Yes [id number] Take 1 tab today and repeat 1 in 72 hrs [facility] metroNIDAZO LE (FLAGYL) 500 mg tablet 07-08 00:00: 00 07-16 04:59 :00 No [id number] 500mg Take 1 tablet by mouth every 12 (twelve) hours for 7 days. [facility] citalopram 10 mg tablet 07-04 00:00: 00 Yes [id number] 10mg Take 1 tablet by mouth at bedtime. [facility] gabapentin 300 mg capsule 24 00:00: 00 Yes [id number] 300mg Take 1 capsule by mouth in the morning. [facility] insulin glargine U-300 conc (TOUJEO MAX U-300 SOLOSTAR) 300 unit/mL (3 mL) InPn 07-04 00:00: 00 Yes [id number] 20U inject 20 Units under the skin at bedtime. [facility] semaglutide (OZEMPIC) 0.25 mg or 0.5 mg (2 mg/3 mL) [facility] 07-04 00:00: 00 Yes [id number] .25mg inject 0.25 mg under the skin weekly. [facility] cephALEXin 500 mg capsule 07-04 00:00: 00 Yes [id number] 500mg Take 1 capsule by mouth in the morning and 1 capsule in the evening. [facility] semaglutide (OZEMPIC) 0.25 mg or 0.5 mg (2 mg/3 mL) [facility] 430 00:00: 00 07-04 00:00 :00 No [id number] .25mg INJECT 0.25 MG UNDER THE SKIN WEEKLY. [facility] citalopram 10 mg tablet 3 00:00: 00 07-04 00:00 :00 No [id number] 10mg Take 1 tablet by mouth at bedtime. [facility] gabapentin 300 mg capsule 3 00:00: 00 07-04 00:00 :00 No [id number] 300mg Take 1 capsule by mouth in the morning. [facility] semaglutide (OZEMPIC) 0.25 mg or 0.5 mg (2 mg/3 mL) [facility] 3-29 00:00: 00 06-10 00:00 :00 No [id number] .25mg inject 0.25 mg under the skin weekly. [facility] lisinopriL 10 mg tablet 2-23 00:00: 00 Yes [id number] 10mg Take 1 tablet by mouth in the morning. [facility] insulin glargine U-300 conc (TOUJEO MAX U-300 SOLOSTAR) 300 unit/mL (3 mL) InPn 04-05 00:00: 00 07-04 00:00 :00 No [id number] 20U inject 20 Units under the skin at bedtime. [facility] citalopram 10 mg tablet 04-05 00:00: 00 05-09 00:00 :00 No [id number] 10mg Take 1 tablet by mouth at bedtime. [facility] citalopram 10 mg tablet 03-28 00:00: 00 04-05 00:00 :00 No [id number] 10mg Take 1 tablet by mouth at bedtime. [facility] acetaminoph en (TYLENOL ARTHRITIS PAIN) 650 mg CR tablet 2022-02 0 00:00: 00 Yes [id number] 650mg Take 1 tablet by mouth every 8 (eight) hours as needed for Pain. [facility] lisinopriL 10 mg tablet 2022-02 0 00:00: 00 04-05 00:00 :00 No [id number] 10mg Take 1 tablet by mouth in the morning. [facility] ibuprofen 600 mg tablet 2022-02 0- 00:00: 00 11-19 00:00 :00 No [id number] 600mg Take 1 tablet by mouth every 6 (six) hours as needed for Temp > 38.5 C for up to 14 days. [facility] flash glucose sensor (FREESTYLE SULEIMAN 2 SENSOR) Kit 8 00:00: 00 Yes [id number] 1{each} inject 1 Each under the skin every 14 (fourteen) days. Use as directed to check blood sugar 3x a day for diagnosis E11.65 [facility] Blood-Gluco se Sensor (FREESTYLE SULEIMAN 3 SENSOR) Tricia 09-03 00:00: 00 Yes [id number] 1{each} inject 1 Each under the skin every 14 (fourteen) days. Use as directed to check blood sugar 3x a day for diagnosis E11.65 [facility] semaglutide (OZEMPIC) 0.25 mg or 0.5 mg (2 mg/3 mL) PnIj 09-03 00:00: 00 05-09 00:00 :00 No [id number] Start 0.25 mg weekly dose for 4 weeks and then progress to 0.5mg weekly injection. [facility] gabapentin 300 mg capsule 08-28 00:00: 00 05-09 00:00 :00 No [id number] 300mg Take 1 capsule by mouth in the morning. [facility] Blood-Gluco se Sensor (FREESTYLE SULEIMAN 3 SENSOR) Tricia 08-28 00:00: 00 09-03 00:00 :00 No [id number] 1{each} inject 1 Each under the skin every 14 (fourteen) days. Use as directed to check blood sugar 3x a day for diagnosis E11.65 [facility] semaglutide (OZEMPIC) 0.25 mg or 0.5 mg (2 mg/3 mL) PnIj 08-28 00:00: 00 09-03 00:00 :00 No [id number] Start 0.25 mg weekly dose for 4 weeks and then progress to 0.5mg weekly injection. [facility] Nitrofurant oin&Nit. Macrocryst 100 mg capsule 08-15 00:00: 00 07-04 00:00 :00 No TAKE 1 CAPSULE BY MOUTH EVERY 12 HOURS FOR 10 DAYS [facility] flash glucose sensor (FREESTYLE SULEIMAN 2 SENSOR) Kit 07-23 00:00: 00 08-28 00:00 :00 No [id number] 1{kit} 1 Kit every 14 (fourteen) days. [facility] lisinopriL 10 mg tablet 07-18 15:39: 43 07-18 00:00 :00 No 10mg Take 1 tablet by mouth in the morning. [facility] insulin glargine U-300 conc (TOUJEO MAX U-300 SOLOSTAR) 300 unit/mL (3 mL) In 07-18 15:39: 43 07-18 00:00 :00 No 60U inject 60 Units under the skin at bedtime. [facility] citalopram 10 mg tablet 07-18 15:39: 43 07-18 00:00 :00 No 10mg Take 1 tablet by mouth at bedtime. [facility] insulin glargine U-300 conc (TOUJEO MAX U-300 SOLOSTAR) 300 unit/mL (3 mL) In 07-18 00:00: 00 04-05 00:00 :00 No [id number] 20U inject 20 Units under the skin at bedtime. [facility] citalopram 10 mg tablet 07-18 00:00: 00 03-28 00:00 :00 No [id number] 10mg Take 1 tablet by mouth at bedtime. [facility] lisinopriL 10 mg tablet 07-18 00:00: 00 11-19 00:00 :00 No [id number] 10mg Take 1 tablet by mouth in the morning. [facility] Atorvastati n Calcium 20 MG Atorvastati n Calcium 20 MG 08-29 00:00: 00 No 1{table t} QD Atorvastat in Calcium 20 MG FreeStyle [place] FreeStyle [place] 03-05 00:00: 00 Yes Na Rudy as directed [facility] FreeStyle [place] Sensor System FreeStyle [place] Sensor System 03-05 00:00: 00 Yes Althea Grant as directed [facility] FreeStyle [place] - FreeStyle [place] - 03-05 00:00: 00 No FreeStyle [place] - FreeStyle [place] - FreeStyle [place] - 03-05 00:00: 00 No FreeStyle [place] - FreeStyle [place] Sensor System - FreeStyle [place] Sensor System - 03-05 00:00: 00 No FreeStyle [place] Sensor System - Citalopram Hydrobromid e Citalopram Hydrobromid e 02-25 00:00: 00 Yes Na Grant 1 tablet [facility] Eliquis 5 mg Eliquis 5 mg Yes Na Grant one [facility] Paxil Paxil Yes Na Grant 1 tablet in the morning [facility] Toujeo SoloStar Toujeo SoloStar Yes Na Grant 70 units [facility] Gabapentin Gabapentin Yes Na Grant 2 capsule before bedtime [facility] Ferralet 90 Ferralet 90 Yes Na Grant 1 tablet [facility] Lisinopril Lisinopril Yes Na Grant 1 tablet [facility] Pravastatin Sodium Pravastatin Sodium Yes Na Grant 1 tablet [facility] Clotrimazol e Clotrimazol e Yes Na Grant 1 applicatio n to affected area [facility] Gabapentin 300 MG Gabapentin 300 MG No 2{capsu le_befo re_bedt fanny} QD Gabapentin 300 MG Citalopram Hydrobromid e 10 MG Citalopram Hydrobromid e 10 MG No 1{table t} QD Citalopram Hydrobromi de 10 MG Lisinopril 20 MG Lisinopril 20 MG No 1{table t} QD Lisinopril 20 MG Eliquis 5 mg 5 [...] UNIT/ML No QD Toujeo SoloStar 300 UNIT/ML Lisinopril 20 MG Lisinopril 20 MG No 1{table t} QD Lisinopril 20 MG Gabapentin 300 MG Gabapentin 300 MG No 2{capsu le_befo re_bedt fanny} QD Gabapentin 300 MG Clotrimazol e 1 % Clotrimazol e 1 % No 1{appli cation_ to_affe cted_ar ea} BID Clotrimazo le 1 % Clotrimazol e 1 % Clotrimazol e 1 % No 1{appli cation_ to_affe cted_ar ea} BID Clotrimazo le 1 % Toujeo SoloStar 300 UNIT/ML Toujeo SoloStar 300 UNIT/ML No QD Toujeo SoloStar 300 UNIT/ML citalopram 10 mg tablet Take 1 tablet every day by oral route. citalopram 10 mg tablet Take 1 tablet every day by oral route. No 1 Q1D citalopram 10 mg tablet Take 1 tablet every day by oral route. [facility] gabapentin 100 mg capsule Take 1 capsule 3 times a day by oral route. gabapentin 100 mg capsule Take 1 capsule 3 times a day by oral route. No 1capsul e(s) TID gabapentin 100 mg capsule Take 1 capsule 3 times a day by oral route. [facility] lisinopril 10 mg tablet Take 1 tablet every day by oral route. lisinopril 10 mg tablet Take 1 tablet every day by oral route. No 1 Q1D lisinopril 10 mg tablet Take 1 tablet every day by oral route. [facility] estradiol 0.01% (0.1 mg/gram) vaginal cream Insert 0.5 g by vaginal route at bedtime for 30 days. estradiol 0.01% (0.1 mg/gram) vaginal cream Insert 0.5 g by vaginal route at bedtime for 30 days. No .5g estradiol 0.01% (0.1 mg/gram) vaginal cream Insert 0.5 g by vaginal route at bedtime for 30 days. [facility] Immunizations Ordered Immunization Name Filled Immunization Name Date Status Comments Source SARS-COV-2 COVID-19 PFIZER VACCINE 2020-05-27 00:00:00 Completed [facility] SARS-COV-2 COVID-19 PFIZER VACCINE 2020-05-27 00:00:00 Completed [facility] SARS-COV-2 COVID-19 PFIZER VACCINE 2020-05-27 00:00:00 Completed [facility] SARS-COV-2 COVID-19 PFIZER VACCINE 2020-05-27 00:00:00 Completed [facility] SARS-COV-2 COVID-19 PFIZER VACCINE 2020-05-27 00:00:00 Completed [facility] SARS-COV-2 COVID-19 PFIZER VACCINE 2020-05-27 00:00:00 Completed [facility] SARS-COV-2 COVID-19 PFIZER VACCINE 2020-05-27 00:00:00 Completed [facility] SARS-COV-2 COVID-19 PFIZER VACCINE 2020-05-27 00:00:00 Completed [facility] SARS-COV-2 COVID-19 PFIZER VACCINE 2020-05-27 00:00:00 Completed [facility] SARS-COV-2 COVID-19 PFIZER VACCINE 2020-05-27 00:00:00 Completed [facility] SARS-COV-2 COVID-19 PFIZER VACCINE 2020-05-27 00:00:00 Completed [facility] SARS-COV-2 COVID-19 PFIZER VACCINE 2020-05-27 00:00:00 Completed [facility] SARS-COV-2 COVID-19 PFIZER VACCINE 2020-05-27 00:00:00 Completed [facility] SARS-COV-2 COVID-19 PFIZER VACCINE 2020-05-27 00:00:00 Completed [facility] SARS-COV-2 COVID-19 PFIZER VACCINE 2020-05-27 00:00:00 Completed [facility] SARS-COV-2 COVID-19 PFIZER VACCINE 2020-05-27 00:00:00 Completed [facility] SARS-COV-2 COVID-19 PFIZER VACCINE 2020-05-27 00:00:00 Completed [facility] SARS-COV-2 COVID-19 PFIZER VACCINE 2020-05-27 00:00:00 Completed [facility] SARS-COV-2 COVID-19 PFIZER VACCINE 2020-05-27 00:00:00 Completed [facility] SARS-COV-2 COVID-19 PFIZER VACCINE 2020-05-27 00:00:00 Completed [facility] SARS-COV-2 COVID-19 PFIZER VACCINE 2020-05-05 00:00:00 Completed [facility] SARS-COV-2 COVID-19 PFIZER VACCINE 2020-05-05 00:00:00 Completed [facility] SARS-COV-2 COVID-19 PFIZER VACCINE 2020-05-05 00:00:00 Completed [facility] SARS-COV-2 COVID-19 PFIZER VACCINE 2020-05-05 00:00:00 Completed [facility] SARS-COV-2 COVID-19 PFIZER VACCINE 2020-05-05 00:00:00 Completed [facility] SARS-COV-2 COVID-19 PFIZER VACCINE 2020-05-05 00:00:00 Completed [facility] SARS-COV-2 COVID-19 PFIZER VACCINE 2020-05-05 00:00:00 Completed [facility] SARS-COV-2 COVID-19 PFIZER VACCINE 2020-05-05 00:00:00 Completed [facility] SARS-COV-2 COVID-19 PFIZER VACCINE 2020-05-05 00:00:00 Completed [facility] SARS-COV-2 COVID-19 PFIZER VACCINE 2020-05-05 00:00:00 Completed [facility] SARS-COV-2 COVID-19 PFIZER VACCINE 2020-05-05 00:00:00 Completed [facility] SARS-COV-2 COVID-19 PFIZER VACCINE 2020-05-05 00:00:00 Completed [facility] SARS-COV-2 COVID-19 PFIZER VACCINE 2020-05-05 00:00:00 Completed [facility] SARS-COV-2 COVID-19 PFIZER VACCINE 2020-05-05 00:00:00 Completed [facility] SARS-COV-2 COVID-19 PFIZER VACCINE 2020-05-05 00:00:00 Completed [facility] SARS-COV-2 COVID-19 PFIZER VACCINE 2020-05-05 00:00:00 Completed [facility] SARS-COV-2 COVID-19 PFIZER VACCINE 2020-05-05 00:00:00 Completed [facility] SARS-COV-2 COVID-19 PFIZER VACCINE 2020-05-05 00:00:00 Completed [facility] SARS-COV-2 COVID-19 PFIZER VACCINE 2020-05-05 00:00:00 Completed [facility] SARS-COV-2 COVID-19 PFIZER VACCINE 2020-05-05 00:00:00 Completed [facility] Afluria Afluria 2019-11-24 14:21:00 Completed [facility] Afluria Afluria 2019-11-24 14:21:00 Completed [facility] Afluria Afluria 2019-11-24 14:21:00 Completed [facility] Afluria Afluria 2017-11-25 12:09:00 Completed [facility] Afluria Afluria 2017-11-25 12:09:00 Completed [facility] Afluria Afluria 2017-11-25 12:09:00 Completed [facility] SARS-COV-2 COVID-19 PFIZER VACCINE Unknown Completed [facility] SARS-COV-2 COVID-19 PFIZER VACCINE Unknown Completed [facility] SARS-COV-2 COVID-19 PFIZER VACCINE Unknown Completed [facility] SARS-COV-2 COVID-19 PFIZER VACCINE Unknown Completed [facility] SARS-COV-2 COVID-19 PFIZER VACCINE Unknown Completed [facility] SARS-COV-2 COVID-19 PFIZER VACCINE Unknown Completed [facility] Zoster Vaccine Recombinant Unknown Completed [facility] SARS-COV-2 COVID-19 PFIZER VACCINE Unknown Completed [facility] SARS-COV-2 COVID-19 PFIZER VACCINE Unknown Completed [facility] Zoster Vaccine Recombinant Unknown Completed [facility] SARS-COV-2 COVID-19 PFIZER VACCINE Unknown Completed [facility] SARS-COV-2 COVID-19 PFIZER VACCINE Unknown Completed [facility] Zoster Vaccine Recombinant Unknown Completed [facility] SARS-COV-2 COVID-19 PFIZER VACCINE Unknown Completed [facility] SARS-COV-2 COVID-19 PFIZER VACCINE Unknown Completed [facility] Zoster Vaccine Recombinant Unknown Completed [facility] SARS-COV-2 COVID-19 PFIZER VACCINE Unknown Completed [facility] SARS-COV-2 COVID-19 PFIZER VACCINE Unknown Completed [facility] Zoster Vaccine Recombinant Unknown Completed [facility] SARS-COV-2 COVID-19 PFIZER VACCINE Unknown Completed [facility] SARS-COV-2 COVID-19 PFIZER VACCINE Unknown Completed [facility] Zoster Vaccine Recombinant Unknown Completed [facility] SARS-COV-2 COVID-19 PFIZER VACCINE Unknown Completed [facility] SARS-COV-2 COVID-19 PFIZER VACCINE Unknown Completed [facility] Zoster Vaccine Recombinant Unknown Completed [facility] SARS-COV-2 COVID-19 PFIZER VACCINE Unknown Completed [facility] SARS-COV-2 COVID-19 PFIZER VACCINE Unknown Completed [facility] Zoster Vaccine Recombinant Unknown Completed [facility] SARS-COV-2 COVID-19 PFIZER VACCINE Unknown Completed [facility] SARS-COV-2 COVID-19 PFIZER VACCINE Unknown Completed [facility] Zoster Vaccine Recombinant Unknown Completed [facility] SARS-COV-2 COVID-19 PFIZER VACCINE Unknown Completed [facility] SARS-COV-2 COVID-19 PFIZER VACCINE Unknown Completed [facility] Zoster Vaccine Recombinant Unknown Completed [facility] SARS-COV-2 COVID-19 PFIZER VACCINE Unknown Completed [facility] SARS-COV-2 COVID-19 PFIZER VACCINE Unknown Completed [facility] Zoster Vaccine Recombinant Unknown Completed [facility] SARS-COV-2 COVID-19 PFIZER VACCINE Unknown Completed [facility] SARS-COV-2 COVID-19 PFIZER VACCINE Unknown Completed [facility] Zoster Vaccine Recombinant Unknown Completed [facility] SARS-COV-2 COVID-19 PFIZER VACCINE Unknown Completed [facility] SARS-COV-2 COVID-19 PFIZER VACCINE Unknown Completed [facility] Zoster Vaccine Recombinant Unknown Completed [facility] SARS-COV-2 COVID-19 PFIZER VACCINE Unknown Completed [facility] SARS-COV-2 COVID-19 PFIZER VACCINE Unknown Completed [facility] Zoster Vaccine Recombinant Unknown Completed [facility] SARS-COV-2 COVID-19 PFIZER VACCINE Unknown Completed [facility] SARS-COV-2 COVID-19 PFIZER VACCINE Unknown Completed [facility] Zoster Vaccine Recombinant Unknown Completed [facility] SARS-COV-2 COVID-19 PFIZER VACCINE Unknown Completed [facility] SARS-COV-2 COVID-19 PFIZER VACCINE Unknown Completed [facility] Zoster Vaccine Recombinant Unknown Completed [facility] SARS-COV-2 COVID-19 PFIZER VACCINE Unknown Completed [facility] SARS-COV-2 COVID-19 PFIZER VACCINE Unknown Completed [facility] Zoster Vaccine Recombinant Unknown Completed [facility] SARS-COV-2 COVID-19 PFIZER VACCINE Unknown Completed [facility] SARS-COV-2 COVID-19 PFIZER VACCINE Unknown Completed [facility] Zoster Vaccine Recombinant Unknown Completed [facility] SARS-COV-2 COVID-19 PFIZER VACCINE Unknown Completed [facility] SARS-COV-2 COVID-19 PFIZER VACCINE Unknown Completed [facility] Zoster Vaccine Recombinant Unknown Completed [facility] SARS-COV-2 COVID-19 PFIZER VACCINE Unknown Completed [facility] SARS-COV-2 COVID-19 PFIZER VACCINE Unknown Completed [facility] Zoster Vaccine Recombinant Unknown Completed [facility] SARS-COV-2 COVID-19 PFIZER VACCINE Unknown Completed [facility] SARS-COV-2 COVID-19 PFIZER VACCINE Unknown Completed [facility] Zoster Vaccine Recombinant Unknown Completed [facility] SARS-COV-2 COVID-19 PFIZER VACCINE Unknown Completed [facility] SARS-COV-2 COVID-19 PFIZER VACCINE Unknown Completed [facility] Zoster Vaccine Recombinant Unknown Completed [facility] SARS-COV-2 COVID-19 PFIZER VACCINE Unknown Completed [facility] SARS-COV-2 COVID-19 PFIZER VACCINE Unknown Completed [facility] Zoster Vaccine Recombinant Unknown Completed [facility] SARS-COV-2 COVID-19 PFIZER VACCINE Unknown Completed [facility] SARS-COV-2 COVID-19 PFIZER VACCINE Unknown Completed [facility] Zoster Vaccine Recombinant Unknown Completed [facility] SARS-COV-2 COVID-19 PFIZER VACCINE Unknown Completed [facility] SARS-COV-2 COVID-19 PFIZER VACCINE Unknown Completed [facility] Zoster Vaccine Recombinant Unknown Completed [facility] SARS-COV-2 COVID-19 PFIZER VACCINE Unknown Completed [facility] SARS-COV-2 COVID-19 PFIZER VACCINE Unknown Completed [facility] Zoster Vaccine Recombinant Unknown Completed [facility] SARS-COV-2 COVID-19 PFIZER VACCINE Unknown Completed [facility] SARS-COV-2 COVID-19 PFIZER VACCINE Unknown Completed [facility] Zoster Vaccine Recombinant Unknown Completed [facility] SARS-COV-2 COVID-19 PFIZER VACCINE Unknown Completed [facility] SARS-COV-2 COVID-19 PFIZER VACCINE Unknown Completed [facility] Zoster Vaccine Recombinant Unknown Completed [facility] Vital Signs Vital Name Observation Time Observation Value Comments S ource BP Diastolic 2023-09-25 00:00:00 73 mm[Hg] [facility] Body Weight 2023-09-25 00:00:00 121.6 [lb_av] [facility] BMI (Body Mass Index) 2023-09-25 00:00:00 20.9 kg/m2 [facility] BP Systolic 2023-09-25 00:00:00 118 mm[Hg] [facility] Height 2023-09-25 00:00:00 64 [in_i] [facility] BP Systolic 2023-09-03 00:00:00 153 mm[Hg] [facility] Body Weight 2023-09-03 00:00:00 121.6 [lb_av] [facility] Height 2023-09-03 00:00:00 64 [in_i] [facility] BP Diastolic 2023-09-03 00:00:00 93 mm[Hg] [facility] Systolic blood pressure 2023-07-05 20:16:00 180 mm[Hg] [facility] Diastolic blood pressure 2023-07-05 20:16:00 96 mm[Hg] [facility] Heart rate 2023-07-05 20:15:00 97 /min [facility] Body temperature 2023-07-05 20:15:00 37 Rose [facility] Respiratory rate 2023-07-05 20:15:00 18 /min [facility] Body height 2023-07-05 20:15:00 162.6 cm [facility] Body weight 2023-07-05 20:15:00 57.652 kg [facility] BMI 2023-07-05 20:15:00 21.82 kg/m2 [facility] Oxygen saturation in Arterial blood by Pulse oximetry 2023-07-05 20:15:00 98 /min [facility] Systolic blood pressure 2023-05-10 20:09:00 118 mm[Hg] [facility] Diastolic blood pressure 2023-05-10 20:09:00 73 mm[Hg] [facility] Heart rate 2023-05-10 20:09:00 94 /min [facility] Body temperature 2023-05-10 20:09:00 36.72 Rose [facility] Respiratory rate 2023-05-10 20:09:00 18 /min [facility] Body height 2023-05-10 20:09:00 162.6 cm [facility] 2023-05-10 20:09:00 60.918 kg [facility] BMI 2023-05-10 20:09:00 23.05 kg/m2 [facility] Oxygen saturation in Arterial blood by Pulse oximetry 2023-05-10 20:09:00 99 /min [facility] Systolic blood pressure 2023-04-05 21:42:00 144 mm[Hg] [facility] Diastolic blood pressure 2023-04-05 21:42:00 83 mm[Hg] [facility] Heart rate 2023-04-05 21:42:00 102 /min [facility] Body height 2023-04-05 21:42:00 162.6 cm [facility] Body weight 2023-04-05 21:42:00 57.698 kg [facility] BMI 2023-04-05 21:42:00 21.83 kg/m2 [facility] Oxygen saturation in Arterial blood by Pulse oximetry 2023-04-05 21:42:00 99 /min [facility] Systolic blood pressure 2022-11-19 16:08:00 105 mm[Hg] [facility] Diastolic blood pressure 2022-11-19 16:08:00 70 mm[Hg] [facility] Heart rate 2022-11-19 16:08:00 94 /min [facility] Body height 2022-11-19 16:08:00 162.6 cm [facility] Body weight 2022-11-19 16:08:00 59.875 kg [facility] BMI 2022-11-19 16:08:00 22.66 kg/m2 [facility] Oxygen saturation in Arterial blood by Pulse oximetry 2022-11-19 16:08:00 100 /min [facility] Systolic blood pressure 2022-09-03 14:37:00 143 mm[Hg] [place] [facility] Diastolic blood pressure 2022-09-03 14:37:00 84 mm[Hg] [facility] Heart rate 2022-09-03 14:29:00 83 /min [facility] Body height 2022-09-03 14:29:00 162.6 cm [facility] Body weight 2022-09-03 14:29:00 61.417 kg [facility] BMI 2022-09-03 14:29:00 23.24 kg/m2 [facility] Oxygen saturation in Arterial blood by Pulse oximetry 2022-09-03 14:29:00 99 /min [facility] Systolic blood pressure 2022-08-28 16:17:00 147 mm[Hg] [facility] Diastolic blood pressure 2022-08-28 16:17:00 85 mm[Hg] [facility] Heart rate 2022-08-28 16:17:00 92 /min [facility] Body height 2022-08-28 16:17:00 162.6 cm [facility] Body weight 2022-08-28 16:17:00 61.326 kg [facility] BMI 2022-08-28 16:17:00 23.21 kg/m2 Univ [facility] Systolic blood pressure 2022-08-28 16:17:00 147 mm[Hg] [facility] Diastolic blood pressure 2022-08-28 16:17:00 85 mm[Hg] [facility] Heart rate 2022-08-28 16:17:00 92 /min [facility] Body height 2022-08-28 16:17:00 162.6 cm [facility] Body weight 2022-08-28 16:17:00 61.326 kg [facility] BMI 2022-08-28 16:17:00 23.21 kg/m2 [facility] Systolic blood pressure 2022-07-18 20:23:00 134 mm[Hg] [facility] Diastolic blood pressure 2022-07-18 20:23:00 88 mm[Hg] [facility] Heart rate 2022-07-18 20:23:00 98 /min [facility] Body temperature 2022-07-18 20:23:00 36.94 Rose [facility] Body height 2022-07-18 20:23:00 162.6 cm [facility] Body weight 2022-07-18 20:23:00 59.421 kg [facility] BMI 2022-07-18 20:23:00 22.49 kg/m2 [facility] Oxygen saturation in Arterial blood by Pulse oximetry 2022-07-18 20:23:00 100 /min [facility] height 2021-08-29 10:40:00 64.00 [in_i] Com [facility] weight 2021-08-29 10:40:00 146.0 [lb_av] [facility] temperature 2021-08-29 10:40:00 98.6 [degF] Com [facility] bmi 2021-08-29 10:40:00 25.06 kg/m2 Comm [facility] oximetry 2021-08-29 10:40:00 99 % Commo [facility] respiratory rate 2021-08-29 10:40:00 17 /min Common [facility] blood pressure systolic 2021-08-29 10:40:00 129 mm[Hg] Common [facility] blood pressure diastolic 2021-08-29 10:40:00 77 mm[Hg] [facility] height 2021-08-29 11:40:00 64.00 [in_i] Com [facility] weight 2021-08-29 11:40:00 146.0 [lb_av] [facility] temperature 2021-08-29 11:40:00 98.6 [degF] Com [facility] bmi 2021-08-29 11:40:00 25.06 kg/m2 [facility] oximetry 2021-08-29 11:40:00 99 % [facility] respiratory rate 2021-08-29 11:40:00 17 /min [facility] blood pressure systolic 2021-08-29 11:40:00 129 mm[Hg] [facility] blood pressure diastolic 2021-08-29 11:40:00 77 mm[Hg] [facility] height 2021-04-18 14:00:00 64.00 [in_i] Com [facility] weight 2021-04-18 14:00:00 153.2 [lb_av] [facility] temperature 2021-04-18 14:00:00 97.2 [degF] Com [facility] bmi 2021-04-18 14:00:00 26.29 kg/m2 Comm on [facility] oximetry 2021-04-18 14:00:00 100 % [facility] respiratory rate 2021-04-18 14:00:00 18 /min [facility] blood pressure systolic 2021-04-18 14:00:00 190 mm[Hg] Common [facility] blood pressure diastolic 2021-04-18 14:00:00 98 mm[Hg] [facility] Procedures Procedure Date / Time Performed Performing Clinician Source POCT URINALYSIS 2023-07-05 20:58:00 Leonor Ashford [facility] VARICELLA-ZOSTER VACCINE, (SHINGRIX) 50 MCG/0.5 ML, IM 2022-11-19 17:30:52 Leonor Ashford [facility] AUTHORIZATION TO RELEASE PHI TO [facility] 2022-07-18 05:01:00 Doctor Unassigned, [place]arthur [facility] Delivery 2003-02-11 00:00:00 [facility] Delivery 2000-02-12 00:00:00 [facility] Tubal Ligation [facility] (Gallbl[facility]) [facility] Encounters Start Date/Time End Date/Time Encounter Type Admission Type Attending [facility] Care Department Encounter ID Source 2021-10-06 08:36:00 Outpatient Rudy Na [facility]LMLC [facility] [id number] [facility] 2021-08-25 08:32:06 Outpatient Rudy Na STLMLC STLMLC [id number] [facility] 2021-05-22 11:20:01 Outpatient Rudy Na STLMLC STLMLC [id number] [facility] 2021-03-08 12:21:04 Outpatient Rudy Na STLMLC STLMLC [id number] [facility] 2021-03-08 12:12:09 Outpatient Althea Grant STLMLC STLMLC [id number] [facility] 2021-03-08 12:07:01 Outpatient Rudy Na STLMLC STLMLC [id number] [facility] 2021-03-08 12:04:39 Outpatient Rudy Na STLMLC STLMLC [id number] [facility] 2021-03-08 11:54:42 Outpatient Rudy Na STLMLC STLMLC [id number] [facility] 2021-03-08 11:54:10 Outpatient Grant, Na STLMLC STLMLC [id number] [facility] 2021-03-08 11:28:46 Outpatient Grant, Na STLMLC STLMLC [id number] [facility] 2020-12-12 08:36:55 Outpatient LORNA DUQUE [facility] [id number] [facility] 2004-02-20 00:00:00 Inpatient P DOCTOR UNASSIGNED, NO [facility] TOMASZ [id number] [facility] 2023-09-25 00:00:00 2023-09-25 00:00:00 JAIRO Houser: [address], [address], [place] [phone] , Ph. [facility] - GC_GCBZW_Marsha arias [place]* [id number] [facility] 2023-09-03 00:00:00 2023-09-03 00:00:00 JAIRO Houser: [address], [address], [place] [phone] , Ph. [facility] - GC_GCBZW_Marsha arias [place]* [id number] [facility] 2023-04-06 00:00:00 2023-07-30 02:04:49 Mobile Device Encounter Shital Hameed [facility] 1.0.114 350.1.13.10 4.2.7.2.686 [id number] [facility] 2023-07-09 00:00:00 2023-07-09 13:30:02 Telephone Leonor Ashford [facility] MEDICAL OFFICE BUILDING 1.840.114 350.1.13.10 4.2.7.2.686 [id number] [facility] 2023-07-05 16:00:00 2023-07-05 16:25:20 Outpatient R LEONOR ASHFORD [facility] [id number] [facility] 2023-07-05 16:00:00 2023-07-05 16:25:20 Physicist Acoustics Visit Lab, Keshawn - Hemant Ashford [facility] MEDICAL OFFICE BUILDING 1.840.114 350.1.13.10 4.2.7.2.686 [id number] [facility] 2023-07-05 15:30:00 2023-07-05 16:01:54 Office Visit Leonor Ashford [facility] GIAN?[facility] 1.840.114 350.1.13.10 4.2.7.2.686 [id number] [facility] 2023-06-09 00:00:00 2023-06-09 00:00:00 Refill Leonor Ashford [facility] GIAN?[facility] MEDICAL OFFICE BUILDING 1.0.114 350.1.13.10 4.2.7.2.686 [id number] [facility] 2023-05-27 13:18:08 2023-05-27 23:59:00 Outpatient R LEONOR ASHFORD [facility] [id number] [facility] 2023-05-27 13:18:08 2023-05-27 23:59:00 Hospital Encounter Leonor Ashford [facility] 1.114 350.1.13.10 4.2.7.2.686 [id number] [facility] 2023-05-10 15:30:00 2023-05-10 17:26:18 Outpatient R LEONOR ASHFORD [facility] [id number] [facility] 2023-05-10 16:00:00 2023-05-10 16:00:00 Physicist Acoustics Visit Lab, Ang - [facility] MEDICAL OFFICE BUILDING 1..114 350.1.13.10 4.2.7.2.686 [id number] [facility] 2023-05-10 15:30:00 2023-05-10 16:00:00 Office Visit Leonor Ashford [facility] GIAN?[facility] MEDICAL OFFICE BUILDING 1..114 350.1.13.10 4.2.7.2.686 [id number] [facility] 2023-04-05 15:30:00 2023-04-05 16:36:33 Outpatient R LISALEONOR Lay [facility] [id number] [facility] 2023-04-05 16:00:00 2023-04-05 16:09:40 Physicist Acoustics Visit Lab, [facility] MEDICAL OFFICE BUILDING 1.2.840.114 350.1.13.10 4.2.7.2.686 [id number] [facility] 2023-04-05 15:30:00 2023-04-05 16:00:00 [facility] MEDICAL OFFICE BUILDING 1..840.114 350.1.13.10 4.2.7.2.686 [id number] [facility] 2023-04-05 00:00:00 2023-04-05 00:00:00 Telephone Dejon [facility] MEDICAL OFFICE BUILDING 1.2.840.114 350.1.13.10 4.2.7.2.686 [id number] [facility] 2023-04-01 08:30:00 2023-04-01 08:30:00 Outpatient R DEJON LEONOR [facility] [id number] [facility] 2023-03-28 00:00:00 2023-03-28 00:00:00 Refill Lisaleonel formerly [facility] GIAN?[facility] MEDICAL OFFICE BUILDING 1.2.840.114 350.1.13.10 4.2.7.2.686 [id number] [facility] 2023-03-28 00:00:00 2023-03-28 00:00:00 Telephone Dejon Leonor [facility] GIAN?[facility] MEDICAL OFFICE BUILDING 1.2.840.114 350.1.13.10 4.2.7.2.686 [id number] [facility] 2023-03-28 00:00:00 2023-03-28 00:00:00 Nurse Triage [facility]ford [facility] MEDICAL OFFICE BUILDING 1.2.840.114 350.1.13.10 4.2.7.2.686 [id number] [facility] 2022-12-24 14:00:00 2022-12-24 14:00:00 Outpatient R DEJNO LEONOR [facility] [id number] [facility] 2022-12-11 00:00:00 2022-12-11 00:00:00 Outpatient GC_GCBZW_Ka diyala_S [facility] [id number] [facility] 2022-11-27 00:00:00 2022-11-27 00:00:00 Telephone Leonor Ashford [facility] GIAN?[facility] MEDICAL OFFICE BUILDING 1.840.114 350.1.13.10 4.2.7.2.686 [id number] [facility] 2022-11-20 00:00:00 2022-11-20 00:00:00 Telephone Leonor Ashford [facility] GIAN?[facility] MEDICAL OFFICE BUILDING 1.2.840.114 350.1.13.10 4.2.7.2.686 [id number] [facility] 2022-11-20 00:00:00 2022-11-20 00:00:00 Telephone [facility]ford [facility] MEDICAL OFFICE BUILDING 1.2.840.114 350.1.13.10 4.2.7.2.686 [id number] [facility] 2022-11-19 12:00:00 2022-11-19 13:16:11 Outpatient R LEONOR ASHFORD [facility] [id number] [facility] 2022-11-19 12:00:00 2022-11-19 12:15:00 Physicist Acoustics Visit Lab, Keshawn Marcos Leon[facility] Ashford [facility] MEDICAL OFFICE BUILDING 1.2.840.114 350.1.13.10 4.2.7.2.686 [id number] [facility] 2022-11-19 11:30:00 2022-11-19 12:00:00 Office Visit Leonor Ashford [facility] GIAN?[facility] MEDICAL OFFICE BUILDING 1.2.840.114 350.1.13.10 4.2.7.2.686 [id number] [facility] 2022-09-20 00:00:00 2022-09-20 00:00:00 Telephone Samaria Cotton [facility] MEDICAL OFFICE BUILDING 1.2.840.114 350.1.13.10 4.2.7.2.686 [id number] [facility] 2022-09-03 10:00:00 2022-09-03 10:00:00 Office Visit [facility]ford [facility] MEDICAL OFFICE BUILDING 1.2.840.114 350.1.13.10 4.2.7.2.686 [id number] [facility] 2022-09-03 10:00:00 2022-09-03 09:54:13 Outpatient R LEONOR ASHFORD [facility] [id number] [facility] 2022-09-03 00:00:00 2022-09-03 00:00:00 Refill Leonor Ashford [facility] GIAN?[facility] MEDICAL OFFICE BUILDING 1.2.840.114 350.1.13.10 4.2.7.2.686 [id number] [facility] 2022-08-28 11:00:00 2022-08-28 12:27:15 Office Visit Samaria Cotton [facility] 1.84114 350.1.13.10 4.2.7.2.686 [id number] [facility] 2022-08-28 11:00:00 2022-08-28 12:27:15 Outpatient R SAMARIA COTTON [facility] [id number] [facility] 2022-07-26 00:00:00 2022-07-26 00:00:00 Patient Secure Msg Doctor Unassigned, Macarthur [facility] MEDICAL OFFICE BUILDING 1.84114 350.1.13.10 4.2.7.2.686 [id number] [facility] 2022-07-24 00:00:00 2022-07-24 00:00:00 Letter (Out) Clinic, [facility] Nephrology [facility] 1.114 350.1.13.10 4.2.7.2.686 [id number] [facility] 2022-07-23 07:45:00 2022-07-23 08:00:00 Physicist Acoustics Visit Lab, Leonor Avalos [facility] MEDICAL OFFICE BUILDING 1.114 350.1.13.10 4.2.7.2.686 [id number] [facility] 2022-07-23 07:45:00 2022-07-23 07:45:00 Outpatient R LEONOR ASHFORD [facility] [id number] [facility] 2022-07-23 00:00:00 2022-07-23 00:00:00 Patient Secure Msg Doctor Unassigned, Macarthur [facility] 1.114 350.1.13.10 4.2.7.2.686 [id number] [facility] 2022-07-20 00:00:00 2022-07-20 00:00:00 Telephone Leonor Ashford [facility] GIAN?[facility] [id number] [id number] [id number] [facility] 2022-07-18 16:15:00 2022-07-18 16:45:23 Physicist Acoustics Visit Lab, Ang - Db Dejon formerly [facility] GIAN?ARCADIO [facility] 1..840.114 350.1.13.10 [id number] [id number] [facility] 2022-07-18 15:00:00 2022-07-18 16:22:36 Outpatient R LEONOR ASHFORD [facility] [id number] [facility] 2022-07-18 15:00:00 2022-07-18 16:22:36 Office Visit [facility]ARCADIO [facility] 1..840.114 350.1.13.10 4.2.7.2.686 [id number] [facility] 2022-07-18 00:00:00 2022-07-18 00:00:00 Orders Only Doctor Unassigned, [place] [facility] 1.840.114 350.1.13.10 4.2.7.2.686 [id number] [facility] 2021-08-29 00:00:00 2021-08-29 00:00:00 SUB ANNUAL [facility] WELLNESS VISIT STLMLC STLMLC [id number] [facility] 2021-08-29 00:00:00 2021-08-29 00:00:00 OFFICE VISIT EST PT LEVEL 3 STLMLC STLMLC [id number] [facility] 2021-04-18 00:00:00 2021-04-18 00:00:00 OFFICE VISIT ESTAB PT LEVEL 4 STLMLC STLMLC [id number] [facility] 2020-08-26 09:15:00 2020-08-26 09:15:00 Outpatient LORNA DUQUE [facility] [id number] [facility] 2020-02-08 00:00:00 2020-02-08 00:00:00 Outpatient STLMLC STLMLC [id number] [facility] 2019-12-25 00:00:00 2019-12-25 00:00:00 Outpatient STLMLC STLMLC [id number] [facility] 2019-11-25 00:00:00 2019-11-25 00:00:00 Outpatient STLMLC STLMLC [id number] [facility] 2019-11-24 00:00:00 2019-11-24 00:00:00 Outpatient STLMLC STLMLC [id number] [facility] 2019-11-12 00:00:00 2019-11-12 00:00:00 Outpatient STLMLC STLMLC [id number] [facility] 2019-08-04 11:39:00 2019-08-04 11:39:00 [facility] [id number] [facility] 2018-08-27 11:20:00 2018-08-27 11:20:[address] [facility] [id number] [facility] 2018-06-06 02:13:00 2018-06-06 02:13:00 [facility] [id number] [facility] 2018-03-05 17:07:00 2018-03-05 17:07:[address] [facility] [id number] [facility] 2018-03-05 17:03:00 2018-03-05 17:03:00 [facility] [id number] [facility] 2018-03-05 10:48:00 2018-03-05 10:48:00 [facility] [facility] [id number] [facility] 2018-02-25 10:45:00 2018-02-25 10:45:[address] [facility] [id number] [facility] 2018-02-07 12:01:00 2018-02-07 12:01:00 [facility] [facility] [id number] [facility] 2017-10-01 13:45:00 2017-10-01 13:45:[address] [facility] [id number] [facility] 2017-09-26 11:12:00 2017-09-26 11:12:00 [facility] [id number] [facility] 2017-09-04 11:15:00 2017-09-04 11:15:[address] [facility] [id number] [facility] 2004-01-04 14:10:00 2004-01-06 16:32:00 Inpatient P ABHINAV CALERO [facility] [id number] [facility] 2003-12-31 00:00:00 2003-12-31 23:59:00 Outpatient SANDRA LADD [facility] [id number] [facility] 2003-12-28 00:00:00 2003-12-28 23:59:00 Outpatient ABHINAV DORANTES [facility] [id number] [facility] Results Test Description Test Time Test Comments Results Result Co mments Source [facility] [Presence] in Serum by [id number] 00:00:00* Test Item Value Reference Range Interpretation Comme nts RPR (test code = RPR) NON-REACTIVE non-reactive [facility] disease [id number] 00:00:00* Test Item Value Reference Range Interpretation Comme nts atopobium vaginae (test code = atopobium vaginae) 23.795 ppm 19.961-24.689 A bvab 2,3 (bacterial vaginosi s associated bacteria 2, 3); mobiluncus spp (test code = bvab 2,3 (bacterial vaginosis associated bacteria 2, 3); mobiluncus spp) 0.000 ppm 19.961-24.689 jenna albicans, parapsilos is, tropicalis (test code = jenna albicans, parapsilosis, tropicalis) 0.000 ppm 19.961-30.770 jenna glabrata (test code = jenna glabrata) 0.000 ppm 23.000-32.138 jenna krusei (test code = jenna krusei) 0.000 ppm 23.000-32.271 chlamydia trachomatis (test code = chlamydia trachomatis) 0.000 ppm 23.000-31.467 gardnerella vaginalis (test code = gardnerella vaginalis) 22.536 ppm 19.961-24.689 A herpes simplex virus 1 (test code = herpes simplex virus 1) 0.000 ppm 23.000-32.355 herpes simplex virus 2 (test code = herpes simplex virus 2) 0.000 ppm 23.000-31.433 megasphaera (types 1, 2) (te st code = megasphaera (types 1, 2)) 0.000 ppm 19.961-24.689 neisseria gonorrhoeae (test code = neisseria gonorrhoeae) 0.000 ppm 23.000-32.117 trichomonas vaginalis (test code = trichomonas vaginalis) 0.000 ppm 23.000-32.119 ermb, C; mefa (test code = e rmb, C; mefa) 19.771 ppm 23.000-27.611 A tet B, tet M (test code = te t B, tet M) 22.631 ppm 23.000-27.778 [facility], [id number] 12:26:00* Test Item Value Reference Range Interpretation Comme nts Leukocytes (test code = Leukocytes) Negative Nitrite (test code = Nitrite) negative Urobilinogen (test code = Urobilinogen) Normal Protein (test code = Protein) 2+ pH (test code = pH) 6.0 Blood (test code = Blood) 1+ Specific Anza (test code = Specific Anza) 1.015 Ketone (test code = Ketone) Negative Bilirubin (test code = Bilirubin) Negative Glucose (test code = Glucose) Negative Appearance (test code = Appearance) Slightly Cloudy Color (test code = Color) Yellow [facility]atitis B virus surface Ag [Presence] in [id number] 00:00:00* Test Item Value Reference Range Interpretation Comme nts ethnicity: (test code = ethnicity:) OTHER race: (test code = race:) UNKNOWN hep. B surf. Ag (test code = hep. B surf. Ag) NON-REACTIVE non-reactive [facility] C virus Ab [Presence] in [id number] 00:00:00* Test Item Value Reference Range Interpretation Comme nts ethnicity: (test code = ethnicity:) OTHER race: (test code = race:) UNKNOWN hep. C Ab. (test code = hep. C Ab.) NON-REACTIVE non-reactive [facility] Urinalysis W Specific [id number] 21:09:00* Test Item Value Reference Range Interpretation Comme nts POCT U SP GRAV (test code = 3255) 1.015 mg/dl 1.005-1.025 POCT PH U (test code = 3254) 5 mg/dl 5-8 POCT U LEUK EST (test code = 3263) trace Negative - Negative POCT U NIT (test code = 3262) neg Negative - Negati ve POCT U PROT (test code = 3259) 30 Negative - Negative POCT U GLU (test code = 3256) 1000 Negative - Negati ve POCT U KETONE (test code = 3258) neg Negative - Negative POCT U UROBILI (test code = 3260) normal 0.2-1 POCT U BILI (test code = 3261) neg Negative - Negative POCT U BLD (test code = 3257) trace Negative - Negati ve POCT U COLOR (test code = 3266) POCT U APPEAR (test code = 3267) Lab Interpretation (test cod e = 22642-0) Abnormal [facility] Urinalysis W Specific [id number] 21:09:00* Test Item Value Reference Range Interpretation Comme nts POCT U SP GRAV (test code = 3255) 1.015 mg/dl 1.005-1.025 POCT PH U (test code = 3254) 5 mg/dl 5-8 POCT U LEUK EST (test code = 3263) trace Negative - Negative POCT U NIT (test code = 3262) neg Negative - Negati ve POCT U PROT (test code = 3259) 30 Negative - Negative POCT U GLU (test code = 3256) 1000 Negative - Negati ve POCT U KETONE (test code = 3258) neg Negative - Negative POCT U UROBILI (test code = 3260) normal 0.2-1 POCT U BILI (test code = 3261) neg Negative - Negative POCT U BLD (test code = 3257) trace Negative - Negati ve POCT U COLOR (test code = 3266) POCT U APPEAR (test code = 3267) Lab Interpretation (test cod e = [id number]) Abnormal [facility] Notes Date/Time Note Provider Source 2023-07-09 13:42:03 Spoke to patient and relayed lab results and recommendations per JAIRO Schaffer. Patient voiced understanding with no questions or concerns at this time. She reports that she is not having S/S and That she is going out of town for a month. Greer Noble RN [facility] 2023-07-09 13:27:18 Is pt having urinary s/s like burning ? She does have a bacteria in the urine but ist common on not tx unless having s/s. We can try to tx the yeast and BV and see if things improve. [facility] 2023-07-05 16:00:00 Images from the original note were not included. Venipuncture collection performed by clean technique on the left anticubitus. Total of 1 attempts were made. Slight pressure and a bandage/dressing were applied to the site(s). The patient experienced no complications. The following specimens were processed according to instructions and sent to [facility] laboratories per lab order on today: LT BLUE SST 2 RED LAV PPT DK GREEN (LiHep) DK GREEN (SodH) WASHBURN DK BLUE (K2) DK BLUE (S) ACD Blood Culture NIPT/NTD Patient presented with specimen for drop-off and was identified by name. Collection information/ total volume were documented accordingly. The following specimens were sent to [facility] laboratories per lab order on today: 24 hour urine Random urine Stool Swab Other Culture and tvag Drop off by MA [facility] 2023-06-10 08:43:32 Notes: Please Review Last Refilled: semaglutide (OZEMPIC) 0.25 mg or 0.5 mg (2 mg/3 mL) PnIj 3 Pen 0 05/10/2023 -- No Sig: inject 0.25 mg under the skin weekly. Sent to pharmacy as: Ozempic 0.25 mg or 0.5 mg (2 mg/3 mL) subcutaneous pen injector (semaglutide) Class: eRX Route: Subcutaneous Order: [id number] Date/Time Signed: 05/10/2023 15:29 E-Prescribing Status: Receipt confirmed by pharmacy (05/10/2023 3:30 PM CDT) Recent Visits Date Type Provider Dept 05/10/23 Office Visit Leonor Ashford FNP [facility] 04/05/23 Office Visit Leonor Ashford FNP [facility] 11/19/22 Office Visit Leonor Ashford FNP [facility] 09/03/22 Office Visit Leonor Ashford FNP [facility] 07/18/22 Office Visit Leonor Ashford FNP [facility] Showing recent visits within past 540 days with a meds authorizing provider and meeting all other requirements Future Appointments Date Type Provider Dept 07/05/23 Appointment Leonor Ashford FNP [facility] Showing future appointments within next 150 days with a meds authorizing provider and meeting all other requirements Raquel Campbell [facility] 2023-05-10 16:00:00 Images from the original note were not included. Venipuncture collection performed by clean technique on the right anticubitus. Total of 1 attempts were made. Slight pressure and a bandage/dressing were applied to the site(s). The patient experienced no complications. The following specimens were processed according to instructions and sent to [facility] laboratories per lab order on 05/10/2023: LT BLUE SST RED LAV 1 PPT DK GREEN (LiHep) DK GREEN (SodH) WASHBURN DK BLUE (K2) DK BLUE (S) ACD Blood Culture NIPT/NTD [facility] 2023-04-08 16:30:36 Patient is returning a call. INE OILER Norma Garcia [facility] 2023-04-08 06:26:10 See encounter from 04/06/2023. Dr. 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 Venipuncture collection performed by clean technique on the right anticubitus. Total of 1 attempts were made. Slight pressure and a bandage/dressing were applied to the site(s). The patient experienced no complications. The following specimens were processed according to instructions and sent to [facility] laboratories per lab order on 04/05/2023: LT BLUE SST 2 RED LAV 2 PPT DK GREEN (LiHep) DK GREEN (SodH) WASHBURN DK BLUE (K2) DK BLUE (S) ACD Blood Culture NIPT/NTD Patient has been identified by and name and was provided with cup, antiseptic towelette, and clean catch instructions. 1 urine specimen(s) sent. 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 Patient needs refill of citalopram 10 mg tablet. Patient takes medicine for depression. I'm ordering her more medicine and patient states she needs meds CRISTELA or she might do something. Are any nurses available to talk to her. she would like to talk to a nurse. [facility] 2023-03-28 12:04:00 Reason for Disposition Sometimes has thoughts of suicide Protocols used: [id number] I spoke to both the patient and her [...] before my counselors appointment today at 2 pm." She states she has felt this way in the past when she has been off her medication, "for the same amount of time.I had to be committed, and I dont want to be committed again. I know that if I can get the medication today, and start the medication today, I will be ok tomorrow. The way Im feeling now will be gone." I asked her if she has tried to hurt herself. She stated "I tried to overdose 3 weeks ago, but my was here." I asked her if I could have permission [...] is not herself when not taking her medication. I advised Jamila to call 911 if she [...] on Saturday, but would request a sooner appt. I spoke with the patient again, and had her promise to me that she would not hurt herself. She stated she would not hurt herself. SONAL 11/19/22 NOV 04/01/2023 Last prescribed on 07/18/2022 Message routed to the clinic for a sooner appointment than Saturday. Patient requesting an appointment on Saturday03/29/2023. Kiana Staley [facility] 2023-03-28 12:04:00 PSS please reach out to patient to see if they can get a sooner appt.. Currently scheduled to come in on 04/01/23. Thank you LES Noble RN [facility] 2023-03-28 12:04:00 When I saw pt in 11/2022 she has stopped Citalopram r/t SE of nausea. I do recommend she go to the ER if there is concerns about HI/SI. [facility] 2023-03-28 11:56:40 Tyra Yo is a 52 year old female is requesting a refill of citalopram 10 mg tablet CRISTELA. Patient is completely out. [facility] 2022-09-20 15:59:54 Formatting of this n ote might be different from the original. Submitted order for [employer] 2 system to [employer] through [employer]. Leandra Henao LVN [facility] 2022-08-28 11:00:00 Addended by: SAMARIA RUTHERFORD on: 09/03/2022 06:12 PM Modules accepted: Orders [facility] 2022-08-28 11:00:00 Addended by: SAMARIA RUTHERFORD on: 09/20/2022 02:53 PM Modules accepted: Orders T [facility]
[2023-10-15 10:24] LABS: Specific Gravity 1.011 (1.005-1.030); Sqamous Epithelial <5 /HPF (None Seen); Transitional Epithelial <5 /HPF (None Seen); Urine Bacteria >50 /HPF (<20); Urine Bilirubin NEGATIVE (Negative); Urine Blood 3+ (OVER) (Negative); Urine Clarity Extremely Turbid (Clear); Urine Color Light-Orange (Yellow); Urine Culture Reflex Order REFLEXED; Urine Glucose 3+ (Negative); Urine Ketones NEGATIVE (Negative); Urine Microscopic Reflex YN ORDER UMIC; Urine Mucus Slight /HPF (None Seen); Urine Nitrite NEGATIVE (Negative); Urine Protein 3+ (Negative); Urine RBC >50 /HPF (None Seen); Urine Urobilinogen Normal (Normal); Urine WBC >50 /HPF (<5); Urine WBC Clump Few /HPF (None Seen)
--- NOTE | 2023-10-15 11:47 | EDPHYS ---
Physician Documentation [facility] Name: Tyra Stewart Age: 53 yrs Sex: Female : 1970 Arrival Date: 10/15/2023 Time: 09:20 Bed 20 Private MD: ED Physician Jeovanny Granado HPI: 10/14 09:41 This 53 yrs old Female presents to ER via Ambulatory with complaints of rn Urinary Problem. 09:41 The patient presents with urinary symptoms, dysuria, frequency. Onset: The rn symptoms/episode began/occurred 1 month(s) ago. Modifying factors: The symptoms are alleviated by nothing, the symptoms are aggravated by nothing. Associated signs and symptoms: Pertinent positives: dysuria, Pertinent negatives: fever, hematuria. Severity of symptoms: At their worst the symptoms were mild, in the emergency department the symptoms are unchanged. The patient has experienced similar episodes in the past. The patient has not recently seen a physician. Historical: - Allergies: 09:35 Ciprofloxacin; iw 09:35 piperacillin; iw 09:35 Rocephin; iw 09:35 Zosyn; iw - PMHx: 09:35 Diabetes - IDDM; Anxiety; Hypertension; kidney failure; legally blind; PE in right lung;iw - PSHx: 09:35 section; Cholecystectomy; iw - Immunization history:: Adult Immunizations up to date. - Infectious Disease History:: Denies. - Social history:: Smoking status: Patient denies any tobacco usage or history of. Patient/guardian denies using. - Family history:: not pertinent. - Hospitalizations: : No recent hospitalization is reported. ROS: 09:41 Constitutional: Negative for fever, chills, and weight loss, Cardiovascular: Negative rn for chest pain, palpitations, and edema, Respiratory: Negative for shortness of breath, cough, wheezing, and pleuritic chest pain, Abdomen/GI: Negative for abdominal pain, nausea, vomiting, diarrhea, and constipation, Back: Negative for injury and pain, : + for dysuria MS/Extremity: Negative for injury and deformity, Neuro: Negative for headache, weakness, numbness, tingling, and seizure, Exam: 09:41 Constitutional: This is a well developed, well nourished patient who is awake, alert, rn and in no acute distress. Cardiovascular: Regular rate and rhythm. No pulse deficits. Respiratory: No increased work of breathing, no retractions or nasal flaring. Abdomen/GI: soft, non-tender Back: No spinal tenderness. No costovertebral tenderness. Full range of motion. Vital Signs: 09:34 BP 120 / 90; Pulse 95; Resp 16; Temp 98.3; Pulse Ox 100% on R/A; Weight 56.25 kg; iw Height 5 ft. 4 in. ; Pain 10/10; 11:52 BP 162 / 103; Pulse 92; Resp 19; Temp 98.3; Pulse Ox 100% ; Pain 0/10; tm6 09:34 Body Mass Index 21.28 (56.25 kg, 162.56 cm) iw 09:34 Pain Scale: Adult iw 11:52 Pain Scale: Adult tm6 MDM: 09:23 Patient medically screened. rn 11:46 Differential diagnosis: urinary tract infection. Data reviewed: vital signs, nurses rn notes, lab test result(s), and as a result, I will discharge patient. Counseling: I had a detailed discussion with the patient and/or guardian regarding the historical points, exam findings, and any diagnostic results supporting the discharge/admit diagnosis, lab results, the need for outpatient follow up, to return to the emergency department if symptoms worsen or persist or if there are any questions or concerns that arise at home. Special discussion: I discussed with the patient/guardian in detail that at this point there is no indication for admission to the hospital. It is understood, however, that if the symptoms persist or worsen the patient needs to return immediately for re-evaluation. 11:47 ED course: Reviewed previous urine culture and shows sensitivity to nitrofurantoin. rn Allergic to both Cipro and Rocephin. No evidence of pyelonephritis or systemic symptoms at this time.. 10/14 09:39 Order name: Urinalysis w/ reflexes; Complete Time: 10:30 rn 10/14 10:32 Order name: Urine Culture EDMS Administered Medications: No medications were administered Disposition Summary: 10/15/23 11:46 Discharge Ordered Notes: Location: Home rn Problem: new rn Symptoms: have improved rn Condition: Stable rn Diagnosis - UTI/ Urinary tract infection, site not specified rn Followup: rn - With: Private Physician - When: As needed - Reason: Recheck today's complaints, Re-evaluation by your physician Discharge Instructions: - Discharge Summary Sheet rn - Urinary Tract Infection, Adult rn Forms: - Family Work Release iw - Medication Reconciliation Form rn - Antibiotic rn faculty - Prescription Opioid Use rn - Patient Portal Instructions rn - Leadership Thank You Letter rn Prescriptions: - Macrobid 100 mg Oral Capsule - take 1 capsule ORAL route every 12 hours for 10 days; 20 capsule; Refills: 0, rn Product Selection Permitted Signatures: Dispatcher [employer] Vita Smith RN RN iw Jeovanny Granado MD MD rn
--- NOTE | 2023-10-15 11:47 | ER ---
Nurse's Notes [facility] Name: Tyra Stewart Age: 53 yrs Sex: Female : 1970 Arrival Date: 10/15/2023 Time: 09:20 Bed 20 Private MD: Diagnosis: UTI/ Urinary tract infection, site not specified Presentation: 10/14 09:34 Chief complaint: Patient states: has hx of UTI a month ago , was put on two different antibiotics, feels like she never fully recovered, still has a strong urine smell and today she had pain with urination and bloating and low back pain. Coronavirus screen: At this time, the client does not indicate any symptoms associated with coronavirus-19. Ebola Screen: No symptoms or risks identified at this time. Initial Sepsis Screen: Does the patient meet any 2 criteria? No. Patient's initial sepsis screen is negative. Does the patient have a suspected source of infection? No. Patient's initial sepsis screen is negative. Risk Assessment: Do you want to hurt yourself or someone else? Patient reports no desire to harm self or others. Onset of symptoms was October 15, 2023. 09:34 Method Of Arrival: Ambulatory iw 09:34 Acuity: TASHI 3 iw Historical: - Allergies: 09:35 Ciprofloxacin; iw 09:35 piperacillin; iw 09:35 Rocephin; iw 09:35 Zosyn; iw - PMHx: 09:35 Diabetes - IDDM; Anxiety; Hypertension; kidney failure; legally blind; PE in right lung;iw - PSHx: 09:35 section; Cholecystectomy; iw - Immunization history:: Adult Immunizations up to date. - Infectious Disease History:: Denies. - Social history:: Smoking status: Patient denies any tobacco usage or history of. Patient/guardian denies using. - Family history:: not pertinent. - Hospitalizations: : No recent hospitalization is reported. Screenin:41 [facility] ED Fall Risk Assessment (Adult) History of falling in the last 3 months, tm6 including since admission No falls in past 3 months (0 pts) Confusion or Disorientation No (0 pts) Intoxicated or Sedated No (0 pts) Impaired Gait No (0 pts) Mobility Assist Device Used No (0 pt) Altered Elimination No (0 pt) Score/Fall Risk Level 0 - 2 = Low Risk Oriented to surroundings, Maintained a safe environment, Educated pt \T\ family on fall prevention, incl call for assistance when getting out of bed. Abuse screen: Denies threats or abuse. Denies injuries from another. Nutritional screening: No deficits noted. Tuberculosis screening: No symptoms or risk factors identified. Assessment: 10:41 General: Appears uncomfortable, Behavior is calm, cooperative. Pain: Complains of pain tm6 in left low back and right low back Pain does not radiate. Pain currently is 5 out of 10 on a pain scale. Quality of pain is described as aching. Neuro: Level of Consciousness is awake, alert, obeys commands, Oriented to person, place, time, situation. Cardiovascular: Patient's skin is warm and dry. Respiratory: Airway is patent Respiratory effort is even, unlabored, Respiratory pattern is regular, symmetrical. GI: Abdomen is flat, non-distended, Reports bloating. : Reports burning with urination. EENT: No signs and/or symptoms were reported regarding the EENT system. Derm: No signs and/or symptoms reported regarding the dermatologic system. Musculoskeletal: No signs and/or symptoms reported regarding the musculoskeletal system. 11:52 Reassessment: Patient and/or family updated on plan of care and expected duration. Pain tm6 level reassessed. Patient is alert, oriented x 3, equal unlabored respirations, skin warm/dry/pink. Vital Signs: 09:34 BP 120 / 90; Pulse 95; Resp 16; Temp 98.3; Pulse Ox 100% on R/A; Weight 56.25 kg; iw Height 5 ft. 4 in. ; Pain 10/10; 11:52 BP 162 / 103; Pulse 92; Resp 19; Temp 98.3; Pulse Ox 100% ; Pain 0/10; tm6 09:34 Body Mass Index 21.28 (56.25 kg, 162.56 cm) iw 09:34 Pain Scale: Adult iw 11:52 Pain Scale: Adult tm6 ED Course: 09:23 Patient arrived in ED. mr 09:23 Jeovanny Granado MD is Attending Physician. rn 09:35 Triage completed. iw 09:36 Arm band placed on. iw 10:08 Urinalysis w/ reflexes Sent. iw 10:39 Alberta Weems, RN is Primary Nurse. tm6 10:41 Patient has correct armband on for positive identification. Bed in low position. Call tm6 light in reach. Side rails up X 1. Provided Education on: use of call bonner. Client placed on continuous cardiac and pulse oximetry monitoring. NIBP monitoring applied. Pulse ox on. NIBP on. Door closed. Noise minimized. Warm blanket given. Pillow given. 11:53 No provider procedures requiring assistance completed. Patient did not have IV access tm6 during this emergency room visit. Administered Medications: No medications were administered Medication: 10:41 VIS not applicable for this client. tm6 Outcome: 11:46 Discharge ordered by . rn 11:53 Discharged to home ambulatory, with family, tm6 11:53 Condition: stable 11:53 Discharge instructions given to patient, Instructed on discharge instructions, follow up and referral plans. medication usage, Demonstrated understanding of instructions, follow-up care, medications, Prescriptions given X 1, 11:53 Patient left the ED. tm6 Signatures: Vero Darling, Reg Reg Vita Harris RN RN iw Nieto, Roman, MD MD rn Masterson, Tawney, RN RN tm6
[2023-10-15 11:57] VITALS: TEMP 98.3; O2SAT 100
[2023-10-15 11:59] VITALS: BP 162/103
== END 2023-10-15 11:53 | disposition home or self-care (01) ==
LOC: ER 09:20
DX: N39.0 Urinary tract infection, site not specified (principal)
CPT/HCPCS: 81001; 87077; 87086; 87088; 87186; 99284

== ENCOUNTER 2023-12-07 14:07 | Emergency (ER) | payer BC, OTHER ==
--- OUTSIDE RECORDS SUMMARY | 2023-12-07 14:11 | XMS REPORT | Continuity of Care Document ---
Author Name Unknown Address [address] [facility] [address] [place] [address] [facility]connect Address [address] [facility] [address] [place] [address] Care Team Providers Care Colorist Formulator Name Role Phone Leonor Romeo Primary Care Physician [phone] Althea Grant Attending Clinician Unavailable LORNA BOLIVAR Attending Clinician Unavailab le DOCTOR UNASSIGNED, NO NAME Attending Clinician U [facility] Leonor Romeo Attending Clinician [phone] Shital Hameed MD Attending Clinician Leonor Romeo Attending Clinician [phone] LEONOR ASHFORD Attending Clinician Unavailable Lab, Ang - Db Attending Clinician Unavailable [email or web address] Attending Clinician Unavaila SAMARIA Corrigan Attending Clinician Unavailable Samaria Rutherford Attending Clinician [phone] Doctor Unassigned, [place] Attending Clinician U [facility] Attending Clinician ABHINAV CALERO Attending Clinician ABHINAV Corrales Attending Clinician SANDRA Reyes Attending Clinician LORNA Jimenez Admitting Clinician UnavailRICO Alvarez Admitting Clinician LEONOR Astudillo Admitting Clinician Unavailable [email or web address]_S Admitting Clinician LONG Mahan Admitting Clinician SANDRA Sinclair Admitting Clinician ABHINAV Osorio Admitting Clinician Michael crystal Payers Payer Name Policy Type Policy Number Effective Date Expirati on Date Source MEDICARE PART A \\T\\ [id number] 2014 00:00:00 Problems Condition Name Condition Details Condition Category Status Onset Date Resolution Date Last Treatment Date Treating Clinician Comments Source Nocturnal enuresis Nocturnal Enuresis Problem Active 9-16 00:00: 00 [facility] Fecal incontinen ce with fecal urgency Fecal Incontinen ce with Fecal Urgency Problem Active 9-16 00:00: 00 [facility] Vaginal discharge Vaginal Discharge Problem Active 8-15 00:00: 00 [facility] Female stress incontinen ce Female Stress Incontinen ce Problem Active 8-15 00:00: 00 [facility] Atrophic vaginitis Atrophic Vaginitis Problem Active 8-15 00:00: 00 [facility] Bacterial vaginosis Bacterial Vaginosis Problem Active 7- 00:00: 00 [facility] Depressive disorder Depressive Disorder Problem Active 7- 00:00: 00 [facility] Neuropathy Neuropathy Problem Active - 00:00: 00 [facility] Essential hypertensi on Essential Hypertensi on Problem Active 7- 00:00: 00 [facility] Chronic kidney disease Chronic Kidney Disease Problem Active 7- 00:00: 00 [facility] Acute vaginitis Acute Vaginitis Problem Active 7- 00:00: 00 [facility] Dysuria Dysuria Problem Active 7- 00:00: 00 [facility] Burning sensation Burning Sensation Problem Active 09-02 00:00: 00 [facility] Diabetes mellitus Diabetes Mellitus Problem Active 09-02 00:00: 00 [facility] Type 2 diabetes mellitus Type 2 Diabetes Mellitus Problem Active 09-02 00:00: 00 [facility] Anxiety Anxiety Problem Active 09-02 00:00: 00 [facility] Mixed anxiety and depressive disorder Mixed Anxiety and Depressive Disorder Problem Active 09-02 00:00: 00 [facility] Acute vaginitis Acute vaginitis Disease Active 07-04 00:00: 00 [facility] Dysuria Dysuria Disease Active 07-04 00:00: 00 [facility] Arthralgia of both hands Arthralgia of both hands Disease Active 2022-02 0 00:00: 00 [facility] Need for hepatitis C screening test Need for hepatitis C screening test Disease Active 2022-02 0 00:00: 00 [facility] Chronic kidney disease Chronic kidney disease Disease Active 08-28 00:00: 00 [facility] Depression Depression Disease Active 08-28 00:00: 00 [facility] Serous retinal detachment , unspecifie d eye Serous retinal detachment , unspecifie d eye Disease Active 08-28 00:00: 00 Overview: Formattin g of this note might be different from the original. RIGHT eye [facility] Neuropathy Neuropathy Disease Active 08-28 00:00: 00 [facility] HTN (hypertens ion) HTN (hypertens ion) Disease Active 07-18 00:00: 00 [facility] Diabetes Diabetes Disease Active 07-18 00:00: 00 [facility] Screening for colorectal cancer Screening for colorectal cancer Disease Active 07-18 00:00: 00 [facility] Essential hypertensi on Essential hypertensi on Disease Active 07-18 00:00: 00 [facility] Type 2 diabetes mellitus with chronic kidney disease, without long-term current use of insulin, unspecifie d CKD stage Type 2 diabetes mellitus with chronic kidney disease, without long-term current use of insulin, unspecifie d CKD stage Disease Active 07-18 00:00: 00 [facility] Diarrhea, unspecifie d type Diarrhea, unspecifie d type Disease Active 07-18 00:00: 00 [facility] Anxiety and depression Anxiety and depression Disease Active 07-18 00:00: 00 [facility] Menopause present Menopause Present Problem Active 09-05 [...] Medical Trigger finger Trigger finger Problem Active [facility] 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 Problem Active [facility] Legal blindness Legal blindness Problem Active [facility] Anemia Anemia Problem Active [facility] Vitamin D deficiency Vitamin D deficiency Problem Active [facility] Diabetes mellitus without complicati on Diabetes Problem Active [facility] Hyperlipid emia Hyperlipid emia Problem Active [facility] Premenopau braeden menorrhagi a Excessive bleeding in premenopau braeden period Problem Active [facility] Microalbum inuria Microalbum inuria Problem Active [facility] Chronic fatigue syndrome Chronic fatigue Problem Active [facility] [id number] Moderate episode of recurrent major depressive disorder Problem Active [facility] Chronic kidney disease stage 3 +5th digit eff 11/12/19*Ch ronic kidney disease, stage 3 Problem Active [facility] Diabetic polyneurop athy Secondary diabetes with peripheral neuropathy Problem Active [facility] [id number] 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, unspecifie d proliferat jewell retinopath y type Problem Active [facility] Allergies, Adverse Reactions, Alerts Allergy Name Allergy Type Status Severity Reaction(s) Onset Date Inactive Date Treating Clinician Comments Source NO KNOWN ALLERGIE S Drug Class Active [facility] Social History Social Habit Start Date Stop Date Quantity Comments Source History of Tobacco Use [facility] Gender identity [facility] Sexual orientation [facility] History of Social function 2023-07-05 00:00:00 2023-07-05 00:00:00 [facility] Tobacco use and exposure 2022-07-18 00:00:00 2022-07-18 00:00:00 Smokeless tobacco non-user [facility] Sex assigned at 1970 00:00:00 1970 00:00:00 [facility] Smoking Status Start Date Stop Date Source Never Smoker [facility] Medications Ordered Medication Name Filled Medication Name Start Date Stop Date Current Medication? Ordering Clinician Indication Dosage Frequency Signature (SIG) Comments Components Source semaglutide (OZEMPIC) 0.25 mg or 0.5 mg (2 mg/3 mL) PnIj 4- 0 00:00: 00 Yes [id number] .25mg INJECT 0.25 MG UNDER THE SKIN WEEKLY. [facility] fluconazole (DIFLUCAN) 150 mg tablet 07-08 00:00: 00 Yes [id number] Take 1 tab today and repeat 1 in 72 hrs [facility] metroNIDAZO LE (FLAGYL) 500 mg tablet 07-08 00:00: 00 07-16 04:59 :00 No [id number] 500mg Take 1 tablet by mouth every 12 (twelve) hours for 7 days. [facility] citalopram 10 mg tablet 07-04 00:00: 00 Yes [id number] 10mg Take 1 tablet by mouth at bedtime. [facility] gabapentin 300 mg capsule 07-04 00:00: 00 Yes [id number] 300mg Take 1 capsule by mouth in the morning. [facility] insulin glargine U-300 conc (TOUJEO MAX U-300 SOLOSTAR) 300 unit/mL (3 mL) InPn 07-04 00:00: 00 Yes [id number] 20U inject 20 Units under the skin at bedtime. [facility] cephALEXin 500 mg capsule 07-04 00:00: 00 Yes [id number] 500mg Take 1 capsule by mouth in the morning and 1 capsule in the evening. [facility] semaglutide (OZEMPIC) 0.25 mg or 0.5 mg (2 mg/3 mL) Ij 07-04 00:00: 00 12-02 00:00 :00 No [id number] .25mg inject 0.25 mg under the skin weekly. [facility] semaglutide (OZEMPIC) 0.25 mg or 0.5 mg (2 mg/3 mL) Ij 30 00:00: 00 07-04 00:00 :00 No [id number] .25mg INJECT 0.25 MG UNDER THE SKIN WEEKLY. [facility] citalopram 10 mg tablet 329 00:00: 00 07-04 00:00 :00 No [id number] 10mg Take 1 tablet by mouth at bedtime. [facility] gabapentin 300 mg capsule 3- 00:00: 00 07-04 00:00 :00 No [id number] 300mg Take 1 capsule by mouth in the morning. [facility] semaglutide (OZEMPIC) 0.25 mg or 0.5 mg (2 mg/3 mL) PnIj 3- 00:00: 00 06-10 00:00 :00 No [id number] .25mg inject 0.25 mg under the skin weekly. [facility] lisinopriL 10 mg tablet 04-05 00:00: 00 Yes [id number] 10mg Take 1 tablet by mouth in the morning. [facility] insulin glargine U-300 conc (TOUJEO MAX U-300 SOLOSTAR) 300 unit/mL (3 mL) InPn 04-05 00:00: 00 07-04 00:00 :00 No [id number] 20U inject 20 Units under the skin at bedtime. [facility] citalopram 10 mg tablet 2- 00:00: 00 05-09 00:00 :00 No [id number] 10mg Take 1 tablet by mouth at bedtime. [facility] citalopram 10 mg tablet 2-15 00:00: 00 04-05 00:00 :00 No [id number] 10mg Take 1 tablet by mouth at bedtime. [facility] acetaminoph en (TYLENOL ARTHRITIS PAIN) 650 mg CR tablet 2022-02 0-10 00:00: 00 Yes [id number] 650mg Take 1 tablet by mouth every 8 (eight) hours as needed for Pain. [facility] lisinopriL 10 mg tablet 2022-02 0-09 00:00: 00 04-05 00:00 :00 No [id number] 10mg Take 1 tablet by mouth in the morning. [facility] ibuprofen 600 mg tablet 2022-02 0- 00:00: 00 2023- 10-09 00:00 :00 No [id number] 600mg Take 1 tablet by mouth every 6 (six) hours as needed for Temp > 38.5 C for up to 14 days. [facility] flash glucose sensor (FREESTYLE SULEIMAN 2 SENSOR) Kit 8-10 00:00: 00 Yes [id number] 1{each} inject 1 Each under the skin every 14 (fourteen) days. Use as directed to check blood sugar 3x a day for diagnosis E11.65 [facility] Blood-Gluco se Sensor (FREESTYLE SULEIMAN 3 SENSOR) Tricia 09-03 00:00: 00 Yes [id number] 1{each} inject 1 Each under the skin every 14 (fourteen) days. Use as directed to check blood sugar 3x a day for diagnosis E11.65 [facility] semaglutide (OZEMPIC) 0.25 mg or 0.5 mg (2 mg/3 mL) PnIj 09-03 00:00: 00 05-09 00:00 :00 No [id number] Start 0.25 mg weekly dose for 4 weeks and then progress to 0.5mg weekly injection. [facility] gabapentin 300 mg capsule 08-28 00:00: 00 05-09 00:00 :00 No [id number] 300mg Take 1 capsule by mouth in the morning. [facility] Blood-Gluco se Sensor (FREESTYLE SULEIMAN 3 SENSOR) Tricia 08-28 00:00: 00 09-03 00:00 :00 No [id number] 1{each} inject 1 Each under the skin every 14 (fourteen) days. Use as directed to check blood sugar 3x a day for diagnosis E11.65 [facility] semaglutide (OZEMPIC) 0.25 mg or 0.5 mg (2 mg/3 mL) PnIj 08-28 00:00: 00 09-03 00:00 :00 No [id number] Start 0.25 mg weekly dose for 4 weeks and then progress to 0.5mg weekly injection. [facility] Nitrofurant oin&Nit. Macrocryst 100 mg capsule 08-15 00:00: 00 07-04 00:00 :00 No TAKE 1 CAPSULE BY MOUTH EVERY 12 HOURS FOR 10 DAYS [facility] flash glucose sensor (FREESTYLE SULEIMAN 2 SENSOR) Kit 07-23 00:00: 00 08-28 00:00 :00 No [id number] 1{kit} 1 Kit every 14 (fourteen) days. [facility] lisinopriL 10 mg tablet 07-18 15:39: 43 07-18 00:00 :00 No 10mg Take 1 tablet by mouth in the morning. [facility] insulin glargine U-300 conc (TOUJEO MAX U-300 SOLOSTAR) 300 unit/mL (3 mL) In 07-18 15:39: 43 07-18 00:00 :00 No 60U inject 60 Units under the skin at bedtime. [facility] citalopram 10 mg tablet 07-18 15:39: 43 07-18 00:00 :00 No 10mg Take 1 tablet by mouth at bedtime. [facility] insulin glargine U-300 conc (TOUJEO MAX U-300 SOLOSTAR) 300 unit/mL (3 mL) In 07-18 00:00: 00 04-05 00:00 :00 No [id number] 20U inject 20 Units under the skin at bedtime. [facility] citalopram 10 mg tablet 07-18 00:00: 00 03-28 00:00 :00 No [id number] 10mg Take 1 tablet by mouth at bedtime. [facility] lisinopriL 10 mg tablet 07-18 00:00: 00 11-19 00:00 :00 No [id number] 10mg Take 1 tablet by mouth in the morning. [facility] Atorvastati n Calcium 20 MG Atorvastati n Calcium 20 MG - 00:00: 00 No 1{table t} QD Atorvastat in Calcium 20 MG FreeStyle Suleiman Argyle FreeStyle Suleiman Argyle 03-05 00:00: 00 Yes Na Grant as directed [facility] FreeStyle Suleiman Sensor System FreeStyle Suleiman Sensor System 03-05 00:00: 00 Yes Na Grant as directed [facility] FreeStyle Suleiman Argyle - FreeStyle Suleiman Argyle - 03-05 00:00: 00 No FreeStyle Suleiman [place]yle - FreeStyle Suleiman Argyle - FreeStyle Suleiman Argyle - 03-05 00:00: 00 No FreeStyle Suleiman [place] - FreeStyle Suleiman Sensor System - FreeStyle Suleiman Sensor System - 03-05 00:00: 00 No FreeStyle Suleiman Sensor System - Citalopram Hydrobromid e Citalopram Hydrobromid e 02-25 00:00: 00 Yes Na Grant 1 tablet [facility] Eliquis 5 mg Eliquis 5 mg Yes Na Grant one [facility] Paxil Paxil Yes Na Grant 1 tablet in the morning [facility] Toujeo SoloStar Toujeo SoloStar Yes Na Grant 70 units [facility] Gabapentin Gabapentin Yes Na Grant 2 capsule before bedtime [facility] Ferralet 90 Ferralet 90 Yes Na Grant 1 tablet [facility] Lisinopril Lisinopril Yes Na Grant 1 tablet [facility] Pravastatin Sodium Pravastatin Sodium Yes Na Grant 1 tablet [facility] Clotrimazol e Clotrimazol e Yes Na Grant 1 applicatio n to affected area [facility] Gabapentin 300 MG Gabapentin 300 MG No [...] 1 tablet every day by oral route. [facility] gabapentin 100 mg capsule Take 1 capsule 3 times a day by oral route. gabapentin 100 mg capsule Take 1 capsule 3 times a day by oral route. No 1capsul e(s) TID gabapentin 100 mg capsule Take 1 capsule 3 times a day by oral route. [facility] lisinopril 10 mg tablet Take 1 tablet every day by oral route. lisinopril 10 mg tablet Take 1 tablet every day by oral route. No 1 Q1D lisinopril 10 mg tablet Take 1 tablet every day by oral route. [facility] estradiol 0.01% (0.1 mg/gram) vaginal cream Insert 0.5 g by vaginal route at bedtime for 30 days. estradiol 0.01% (0.1 mg/gram) vaginal cream Insert 0.5 g by vaginal route at bedtime for 30 days. No .5g estradiol 0.01% (0.1 mg/gram) vaginal cream Insert 0.5 g by vaginal route at bedtime for 30 days. [facility] Immunizations Ordered Immunization Name Filled Immunization Name Date Status Comments Source Zoster Vaccine Recombinant 2022-11-19 00:00:00 Completed [facility] Zoster Vaccine Recombinant 2022-11-19 00:00:00 Completed SARS-COV-2 COVID-19 PFIZER VACCINE 2020-05-27 00:00:00 Completed [facility] SARS-COV-2 COVID-19 PFIZER VACCINE 2020-05-27 00:00:00 Completed [facility] SARS-COV-2 COVID-19 PFIZER VACCINE 2020-05-27 00:00:00 Completed [facility] SARS-COV-2 COVID-19 PFIZER VACCINE 2020-05-27 00:00:00 Completed [facility] SARS-COV-2 COVID-19 PFIZER VACCINE 2020-05-27 00:00:00 Completed [facility] SARS-COV-2 COVID-19 PFIZER VACCINE 2020-05-27 00:00:00 Completed [facility] SARS-COV-2 COVID-19 PFIZER VACCINE 2020-05-27 00:00:00 Completed [facility] SARS-COV-2 COVID-19 PFIZER VACCINE 2020-05-27 00:00:00 Completed [facility] SARS-COV-2 COVID-19 PFIZER VACCINE 2020-05-27 00:00:00 Completed [facility] SARS-COV-2 COVID-19 PFIZER VACCINE 2020-05-27 00:00:00 Completed [facility] SARS-COV-2 COVID-19 PFIZER VACCINE 2020-05-27 00:00:00 Completed [facility] SARS-COV-2 COVID-19 PFIZER VACCINE 2020-05-27 00:00:00 Completed [facility] SARS-COV-2 COVID-19 PFIZER VACCINE 2020-05-05 00:00:00 Completed [facility] SARS-COV-2 COVID-19 PFIZER VACCINE 2020-05-05 00:00:00 Completed [facility] SARS-COV-2 COVID-19 PFIZER VACCINE 2020-05-05 00:00:00 Completed [facility] SARS-COV-2 COVID-19 PFIZER VACCINE 2020-05-05 00:00:00 Completed [facility] SARS-COV-2 COVID-19 PFIZER VACCINE 2020-05-05 00:00:00 Completed [facility] SARS-COV-2 COVID-19 PFIZER VACCINE 2020-05-05 00:00:00 Completed [facility] SARS-COV-2 COVID-19 PFIZER VACCINE 2020-05-05 00:00:00 Completed [facility] SARS-COV-2 COVID-19 PFIZER VACCINE 2020-05-05 00:00:00 Completed [facility] SARS-COV-2 COVID-19 PFIZER VACCINE 2020-05-05 00:00:00 Completed [facility] SARS-COV-2 COVID-19 PFIZER VACCINE 2020-05-05 00:00:00 Completed [facility] SARS-COV-2 COVID-19 PFIZER VACCINE 2020-05-05 00:00:00 Completed [facility] SARS-COV-2 COVID-19 PFIZER VACCINE 2020-05-05 00:00:00 Completed [facility] Afluria Afluria 2019-11-24 14:21:00 Completed [facility] Afluria Afluria 2019-11-24 14:21:00 Completed [facility] Afluria Afluria 2017-11-25 12:09:00 Completed [facility] Afluria Afluria 2017-11-25 12:09:00 Completed [facility] SARS-COV-2 COVID-19 PFIZER VACCINE Unknown Completed [facility] SARS-COV-2 COVID-19 PFIZER VACCINE Unknown Completed [facility] SARS-COV-2 COVID-19 PFIZER VACCINE Unknown Completed [facility] Zoster Vaccine Recombinant Unknown Completed [facility] SARS-COV-2 COVID-19 PFIZER VACCINE Unknown Completed [facility] Zoster Vaccine Recombinant Unknown Completed [facility] SARS-COV-2 COVID-19 PFIZER VACCINE Unknown Completed [facility] Zoster Vaccine Recombinant Unknown Completed [facility] SARS-COV-2 COVID-19 PFIZER VACCINE Unknown Completed [facility] Zoster Vaccine Recombinant Unknown Completed [facility] Zoster Vaccine Recombinant Unknown Completed [facility] SARS-COV-2 COVID-19 PFIZER VACCINE Unknown Completed [facility] Zoster Vaccine Recombinant Unknown Completed [facility] SARS-COV-2 COVID-19 PFIZER VACCINE Unknown Completed [facility] Zoster Vaccine Recombinant Unknown Completed [facility] SARS-COV-2 COVID-19 PFIZER VACCINE Unknown Completed [facility] Zoster Vaccine Recombinant Unknown Completed [facility] SARS-COV-2 COVID-19 PFIZER VACCINE Unknown Completed [facility] Zoster Vaccine Recombinant Unknown Completed [facility] SARS-COV-2 COVID-19 PFIZER VACCINE Unknown Completed [facility] Zoster Vaccine Recombinant Unknown Completed [facility] Zoster Vaccine Recombinant Unknown Completed [facility] SARS-COV-2 COVID-19 PFIZER VACCINE Unknown Completed [facility] Zoster Vaccine Recombinant Unknown Completed [facility] SARS-COV-2 COVID-19 PFIZER VACCINE Unknown Completed [facility] SARS-COV-2 COVID-19 PFIZER VACCINE Unknown Completed [facility] Zoster Vaccine Recombinant Unknown Completed [facility] SARS-COV-2 COVID-19 PFIZER VACCINE Unknown Completed [facility] Zoster Vaccine Recombinant Unknown Completed [facility] SARS-COV-2 COVID-19 PFIZER VACCINE Unknown Completed [facility] Zoster Vaccine Recombinant Unknown Completed [facility] Zoster Vaccine Recombinant Unknown Completed [facility] Zoster Vaccine Recombinant Unknown Completed [facility] SARS-COV-2 COVID-19 PFIZER VACCINE Unknown Completed [facility] SARS-COV-2 COVID-19 PFIZER VACCINE Unknown Completed [facility] Zoster Vaccine Recombinant Unknown Completed [facility] SARS-COV-2 COVID-19 PFIZER VACCINE Unknown Completed [facility] SARS-COV-2 COVID-19 PFIZER VACCINE Unknown Completed [facility] Zoster Vaccine Recombinant Unknown Completed [facility] SARS-COV-2 COVID-19 PFIZER VACCINE Unknown Completed [facility] Zoster Vaccine Recombinant Unknown Completed [facility] SARS-COV-2 COVID-19 PFIZER VACCINE Unknown Completed [facility] Zoster Vaccine Recombinant Unknown Completed [facility] Vital Signs Vital Name Observation [...] Systolic blood pressure 2023-07-05 20:16:00 180 mm[Hg] [facility] Diastolic blood pressure 2023-07-05 20:16:00 96 mm[Hg] [facility] Heart rate 2023-07-05 20:15:00 97 /min [facility] Body temperature 2023-07-05 20:15:00 37 Rose [facility] Respiratory rate 2023-07-05 20:15:00 18 /min [facility] Body height 2023-07-05 20:15:00 162.6 cm [facility] Body weight 2023-07-05 20:15:00 57.652 kg [facility] BMI 2023-07-05 20:15:00 21.82 kg/m2 [facility] Oxygen saturation in Arterial blood by Pulse oximetry 2023-07-05 20:15:00 98 /min [facility] Systolic blood pressure 2023-05-10 20:09:00 118 mm[Hg] [facility] Diastolic blood pressure 2023-05-10 20:09:00 73 mm[Hg] [facility] Heart rate 2023-05-10 20:09:00 94 /min [facility] Body temperature 2023-05-10 20:09:00 36.72 Rose [facility] Respiratory rate 2023-05-10 20:09:00 18 /min [facility] Body height 2023-05-10 20:09:00 162.6 cm [facility] 2023-05-10 20:09:00 60.918 kg [facility] BMI 2023-05-10 20:09:00 23.05 kg/m2 [facility] Oxygen saturation in Arterial blood by Pulse oximetry 2023-05-10 20:09:00 99 /min [facility] Systolic blood pressure 2023-04-05 21:42:00 144 mm[Hg] [facility] Diastolic blood pressure 2023-04-05 21:42:00 83 mm[Hg] [facility] Heart rate 2023-04-05 21:42:00 102 /min [facility] Body height 2023-04-05 21:42:00 162.6 cm [facility] Body weight 2023-04-05 21:42:00 57.698 kg [facility] BMI 2023-04-05 21:42:00 21.83 kg/m2 [facility] Oxygen saturation in Arterial blood by Pulse oximetry 2023-04-05 21:42:00 99 /min [facility] Systolic blood pressure 2022-11-19 16:08:00 105 mm[Hg] [facility] Diastolic blood pressure 2022-11-19 16:08:00 70 mm[Hg] [facility] Heart rate 2022-11-19 16:08:00 94 /min [facility] Body height 2022-11-19 16:08:00 162.6 cm [facility] Body weight 2022-11-19 16:08:00 59.875 kg [facility] BMI 2022-11-19 16:08:00 22.66 kg/m2 [facility] [place] [facility] saturation in Arterial blood by Pulse oximetry 2022-11-19 16:08:00 100 /min [facility] Systolic blood pressure 2022-09-03 14:37:00 143 mm[Hg] [facility] Diastolic blood pressure 2022-09-03 14:37:00 84 mm[Hg] [facility] Heart rate 2022-09-03 14:29:00 83 /min [facility] Body height 2022-09-03 14:29:00 162.6 cm [facility] weight 2022-09-03 14:29:00 61.417 kg Univ [facility] BMI 2022-09-03 14:29:00 23.24 kg/m2 Univ [facility] Oxygen saturation in Arterial blood by Pulse oximetry 2022-09-03 14:29:00 99 /min [facility] Systolic blood pressure 2022-08-28 16:17:00 147 mm[Hg] [facility] Diastolic blood pressure 2022-08-28 16:17:00 85 mm[Hg] [facility] Heart rate 2022-08-28 16:17:00 92 /min [facility] Body height 2022-08-28 16:17:00 162.6 cm Univ [facility] Body weight 2022-08-28 16:17:00 61.326 kg Univ [facility] BMI 2022-08-28 16:17:00 23.21 kg/m2 Univ [facility] Systolic blood pressure 2022-08-28 16:17:00 147 mm[Hg] [facility] Diastolic blood pressure 2022-08-28 16:17:00 85 mm[Hg] [facility] Heart rate 2022-08-28 16:17:00 92 /min Unive [facility] Body height 2022-08-28 16:17:00 162.6 cm [facility] Body weight 2022-08-28 16:17:00 61.326 kg Univ [facility] BMI 2022-08-28 16:17:00 23.21 kg/m2 Univ [facility] Systolic blood pressure 2022-07-18 20:23:00 134 mm[Hg] [facility] Diastolic blood pressure 2022-07-18 20:23:00 88 mm[Hg] [facility] Heart rate 2022-07-18 20:23:00 98 /min [facility] temperature 2022-07-18 20:23:00 36.94 [facility] Body height 2022-07-18 20:23:00 162.6 cm [facility] Body weight 2022-07-18 20:23:00 59.421 kg [facility] BMI 2022-07-18 20:23:00 22.49 kg/m2 [facility] Oxygen saturation in Arterial blood by Pulse oximetry 2022-07-18 20:23:00 100 /min [facility] height 2021-08-29 10:40:00 64.00 [in_i] Com [facility] weight 2021-08-29 10:40:00 146.0 [lb_av] Co [facility] temperature 2021-08-29 10:40:00 98.6 [degF] Com [facility] bmi 2021-08-29 10:40:00 25.06 kg/m2 Comm on [facility] oximetry 2021-08-29 10:40:00 99 % Commo n [facility] respiratory rate 2021-08-29 10:40:00 17 /min [facility] blood pressure systolic 2021-08-29 10:40:00 129 mm[Hg] [facility] blood pressure diastolic 2021-08-29 10:40:00 77 mm[Hg] [facility] height 2021-08-29 11:40:00 64.00 [in_i] Com [facility] weight 2021-08-29 11:40:00 146.0 [lb_av] Co [facility] temperature 2021-08-29 11:40:00 98.6 [degF] Com [facility] bmi 2021-08-29 11:40:00 25.06 kg/m2 Comm on [facility] oximetry 2021-08-29 11:40:00 99 % Commo n [facility] respiratory rate 2021-08-29 11:40:00 17 /min [facility] blood pressure systolic 2021-08-29 11:40:00 129 mm[Hg] [facility] blood pressure diastolic 2021-08-29 11:40:00 77 mm[Hg] [facility] height 2021-04-18 14:00:00 64.00 [in_i] Com [facility] weight 2021-04-18 14:00:00 153.2 [lb_av] Co mmon [facility] temperature 2021-04-18 14:00:00 97.2 [degF] Com [facility] bmi 2021-04-18 14:00:00 26.29 kg/m2 Comm on [facility] oximetry 2021-04-18 14:00:00 100 % Commo n [facility] respiratory rate 2021-04-18 14:00:00 18 /min [facility] blood pressure systolic 2021-04-18 14:00:00 190 mm[Hg] [facility] blood pressure diastolic 2021-04-18 14:00:00 98 mm[Hg] [facility] Procedures Procedure Date / Time Performed Performing Clinician Source POCT URINALYSIS 2023-07-05 20:58:00 Leonor Ashford [facility] VARICELLA-ZOSTER VACCINE, (SHINGRIX) 50 MCG/0.5 ML, IM 2022-11-19 17:30:52 Leonor Ashford [facility] AUTHORIZATION TO RELEASE PHI TO [facility] 2022-07-18 05:01:00 Doctor Unassigned, [place] [facility] Delivery 2003-02-11 00:00:00 Cynthia via Medical Delivery 2000-02-12 00:00:00 Cynthia via Medical Cholecystectomy (Gallbladder) [facility] Encounters Start Date/Time End Date/Time Encounter Type Admission Type Attending [facility] Facility Care Department Encounter ID Source 2021-10-06 08:36:00 Outpatient Althea Grant STRUBÉN STLMLC [id number] [facility] 2021-08-25 08:32:06 Outpatient Althea Grant STRUBÉN STLMLC [id number] [facility] 2021-05-22 11:20:01 Outpatient Althea Grant STRUBÉN STLMLC [id number] [facility] 2021-03-08 12:21:04 Outpatient Althea Grant STRUBÉN STLMLC [id number] [facility] 2021-03-08 12:12:09 Outpatient Althea Grant STRUBÉN STLMLC [id number] [facility] 2021-03-08 12:07:01 Outpatient Althea Grant STRUBÉN STLMLC [id number] [facility] 2021-03-08 12:04:39 Outpatient Althea Grant STRUBÉN STLMLC [id number] [facility] 2021-03-08 11:54:42 Outpatient Althea Grant STRUBÉN STLMLC [id number] [facility] 2021-03-08 11:54:10 Outpatient Althea Grant STRUBÉN STLMLC [id number] [facility] 2021-03-08 11:28:46 Outpatient Althea Grant STRUBÉN STLMLC [id number] [facility] 2020-12-12 08:36:55 Outpatient LORNA DUQUE [facility] OPH [id number] [facility] 2004-02-20 00:00:00 Inpatient P DOCTOR UNASSIGNED, NO [facility] TOMASZ [id number] [facility] 2023-11-30 00:00:00 2023-12-03 07:40:22 Refill Cotta, Leonor [facility] 1.2.840.114 350.1.13.10 4.2.7.2.686 [id number] [facility] 2023-11-13 00:00:00 2023-11-13 00:00:00 JAIRO Houser: [address], [address], [place] [address] , Ph. [facility] - GC_GCBZW_[facility]* [id number] [facility] 2023-11-06 00:00:00 2023-11-06 00:00:00 JAIRO Houser: [address], [address], [place] [phone] , Ph. [facility] - GC[facility]GCBZW_[facility]* [id number] [facility] 2023-10-28 00:00:00 2023-10-28 00:00:00 JAIRO Houser: [address], [address], [place] [address] , Ph. [facility] GC_GCBZW_[facility]* [id number] [facility] 2023-10-23 00:00:00 2023-10-23 14:17:03 Telephone Leonor Ashford [facility] GIAN?[facility] 1..840.114 350.1.13.10 4.2.7.2.686 [id number] [facility] 2023-10-23 00:00:00 2023-10-23 11:13:53 Telephone Leonor Ashford [facility] 1.2.840.114 350.1.13.10 4.2.7.2.686 [id number] [facility] 2023-10-15 00:00:00 2023-10-16 16:08:11 Telephone Dejon Leonor [facility] GIAN?[facility] 1..840.114 350.1.13.10 4.2.7.2.686 [id number] [facility] 2023-09-25 00:00:00 2023-09-25 00:00:00 JARIO Houser: [address], [address], [place] [phone] , Ph. [facility] - GC_GCBZW_[place] [facility]* [id number] [facility] 2023-09-03 00:00:00 2023-09-03 00:00:00 JAIRO Houser: [address], [address], [place] [phone] , Ph. [facility] - GC_GCBZW_[place] ju[place] [facility]* [id number] [facility] 2023-04-06 00:00:00 2023-07-30 02:04:49 Mobile Device Encounter Shital Hameed [facility] 1.840.114 350.1.13.10 4.2.7.2.686 [id number] [facility] 2023-07-09 00:00:00 2023-07-09 13:30:02 Telephone DejonLeonor [facility] GIAN?MARIANARosanne [facility] 1..840.114 350.1.13.10 4.2.7.2.686 [id number] [facility] 2023-07-05 16:00:00 2023-07-05 16:25:20 Outpatient R LEONOR ASHFORD [facility] [id number] [facility] 2023-07-05 16:00:00 2023-07-05 16:25:20 Poultry Helper Visit Lab, Keshawn - Hemant Ashford [facility] GIAN?[facility] OFF[facility] 1.2.840.114 350.1.13.10 4.2.7.2.686 [id number] [facility] 2023-07-05 15:30:00 2023-07-05 16:01:54 Office Visit Leonor Ashfodr [facility] GIAN?[facility] 1..840.114 350.1.13.10 4.2.7.2.686 [id number] [facility] 2023-06-09 00:00:00 2023-06-09 00:00:00 Refill Leonor Ashford [facility] GIAN?[facility] OFFICE BUILDING 1..840.114 350.1.13.10 4.2.7.2.686 [id number] [facility] 2023-05-27 13:18:08 2023-05-27 23:59:00 Outpatient R LEONOR ASHFORD [facility] [id number] [facility] 2023-05-27 13:18:08 2023-05-27 23:59:00 Hospital Encounter Leonor Ashford [facility] 1..840.114 350.1.13.10 4.2.7.2.686 [id number] [facility] 2023-05-10 15:30:00 2023-05-10 17:26:18 Outpatient R LEONOR ASHFORD [facility] [id number] [facility] 2023-05-10 16:00:00 2023-05-10 16:00:00 Poultry Helper Visit Lab, Keshawn - Hemant Jason [facility]ford[facility]ly [facility] GIAN?[facility] OFFICE BUILDING 1..840.114 350.1.13.10 4.2.7.2.686 [id number] [facility] 2023-05-10 15:30:00 2023-05-10 16:00:00 Office Visit Cotta, [facility] 1..840.114 350.1.13.10 4.2.7.2.686 [id number] [facility] 2023-04-05 15:30:00 2023-04-05 16:36:33 Outpatient R LEONOR ASHFORD [facility] [id number] [facility] 2023-04-05 16:00:00 2023-04-05 16:09:40 Poultry Helper Visit Lab, Keshawn - Hemant Jason AshfordFormerly [facility] GIAN?[facility] OFF[facility] 1.840.114 350.1.13.10 4.2.7.2.686 [id number] [facility] 2023-04-05 15:30:00 2023-04-05 16:00:00 Office Visit Leonor Ashford [facility] GIAN?[facility] 1.840.114 350.1.13.10 4.2.7.2.686 [id number] [facility] 2023-04-05 00:00:00 2023-04-05 00:00:00 [facility] 1..840.114 350.1.13.10 4.2.7.2.686 [id number] [facility] 2023-04-01 08:30:00 2023-04-01 08:30:00 Outpatient R LEONOR ASHFORD [facility] [id number] [facility] 2023-03-28 00:00:00 2023-03-28 00:00:00 Refill Jason AshfordFormerly [facility] GIAN?[facility] 1..840.114 350.1.13.10 4.2.7.2.686 [id number] [facility] 2023-03-28 00:00:00 2023-03-28 00:00:00 [facility] 1.2.840.114 350.1.13.10 4.2.7.2.686 [id number] [facility] 2023-03-28 00:00:00 2023-03-28 00:00:00 Nurse Triage [facility] 1.2840.114 350.1.13.10 4.2.7.2.686 [id number] [facility] 2022-12-24 14:00:00 2022-12-24 14:00:00 Outpatient R LEONOR ASHFORD [facility] [id number] [facility] 2022-12-11 00:00:00 2022-12-11 00:00:00 Outpatient GC_GCBZW_Ka diyala_S [facility] [id number] [facility] 2022-11-27 00:00:00 2022-11-27 00:00:00 Telephone Leonor Ashford [facility] GIAN?[facility] 1.2840.114 350.1.13.10 4.2.7.2.686 [id number] [facility] 2022-11-20 00:00:00 2022-11-20 00:00:00 Telephone [facility] 1.2.840.114 350.1.13.10 4.2.7.2.686 [id number] [facility] 2022-11-20 00:00:00 2022-11-20 00:00:00 Telephone [facility] 1.2.840.114 350.1.13.10 4.2.7.2.686 [id number] [facility] 2022-11-19 12:00:00 2022-11-19 13:16:11 Outpatient R LISALEONOR Castaneda [facility] [id number] [facility] 2022-11-19 12:00:00 2022-11-19 12:15:00 Poultry Helper Visit Lab, Ang - Hemant PantojaLeonor castaneda [facility] 1.2.840.114 350.1.13.10 4.2.7.2.686 [id number] [facility] 2022-11-19 11:30:00 2022-11-19 12:00:00 Office [facility]Leon[facility] 1.2.840.114 350.1.13.10 4.2.7.2.686 [id number] [facility] 2022-09-20 00:00:00 2022-09-20 00:00:00 Telephone Angievladimir Samaria [facility] GIAN?[facility] 1..840.114 350.1.13.10 4.2.7.2.686 [id number] [facility] 2022-09-03 10:00:00 2022-09-03 10:00:00 Office [facility]Leon[facility] 1.2.840.114 350.1.13.10 4.2.7.2.686 [id number] [facility] 2022-09-03 10:00:00 2022-09-03 09:54:13 Outpatient R DEJONJASONIE [facility] [id number] [facility] 2022-09-03 00:00:00 2022-09-03 00:00:00 Refill LisaLeonor castaneda [facility] GIAN?[facility] 1.2.840.114 350.1.13.10 4.2.7.2.686 [id number] [facility] 2022-08-28 11:00:00 2022-08-28 12:27:15 [facility] 1.2.840.114 350.1.13.10 4.2.7.2.686 [id number] [facility] 2022-08-28 11:00:00 2022-08-28 12:27:15 Outpatient R BIRGIT [facility] [id number] [facility] 2022-07-26 00:00:00 2022-07-26 00:00:00 Patient Secure Msg Doctor Unassigned, [place] [facility] 1.840.114 350.1.13.10 4.2.7.2.686 [id number] [facility] 2022-07-24 00:00:00 2022-07-24 00:00:00 Letter (Out) Clinic, [facility] Neph[facility] 1.840.114 350.1.13.10 4.2.7.2.686 [id number] [facility] 2022-07-23 07:45:00 2022-07-23 08:00:00 Poultry Helper Visit Lab, Leonor Avalos [facility] 1..840.114 350.1.13.10 4.2.7.2.686 [id number] [facility] 2022-07-23 07:45:00 2022-07-23 07:45:00 Outpatient R LEONOR ASHFORD [facility] [id number] [facility] 2022-07-23 00:00:00 2022-07-23 00:00:00 Patient Secure Msg Doctor Unassigned, [place] [facility] 1.2840.114 350.1.13.10 4.2.7.2.686 [id number] [facility] 2022-07-20 00:00:00 2022-07-20 00:00:00 Telephone Leonor Ashford [facility] 1.84.114 350.1.13.10 4.2.7.2.686 [id number] [facility] 2022-07-18 16:15:00 2022-07-18 16:45:23 Poultry Helper Visit Lab, Keshawn - Hemant Dejon Pending sale to [facility] 1.84.114 350.1.13.10 4.2.7.2.686 [id number] [facility] 2022-07-18 15:00:00 2022-07-18 16:22:36 Outpatient R LEOONR ASHFORD [facility] [id number] [facility] 2022-07-18 15:00:00 2022-07-18 16:22:36 Office Visit Dejon Pending sale to [facility] 1.84.114 350.1.13.10 4.2.7.2.686 [id number] [facility] 2022-07-18 00:00:00 2022-07-18 00:00:00 Orders Only Doctor Unassigned, [place] [facility] 1.2.114 350.1.13.10 4.2.7.2.686 [id number] [facility] 2021-08-29 00:00:00 2021-08-29 00:00:00 SUB ANNUAL [facility] WELLNESS VISIT STLMLC STLMLC [id number] [facility] 2021-08-29 00:00:00 2021-08-29 00:00:00 OFFICE VISIT EST PT LEVEL 3 STLMLC STLMLC [id number] [facility] 2021-04-18 00:00:00 2021-04-18 00:00:00 OFFICE VISIT ESTAB PT LEVEL 4 STLMLC STLMLC [id number] [facility] 2020-08-26 09:15:00 2020-08-26 09:15:00 Outpatient LORNA DUQUE [facility] [id number] [facility] 2020-02-08 00:00:00 2020-02-08 00:00:00 Outpatient STLMLC STLMLC [id number] [facility] 2019-12-25 00:00:00 2019-12-25 00:00:00 Outpatient STLMLC STLMLC [id number] [facility] 2019-11-25 00:00:00 2019-11-25 00:00:00 Outpatient STLMLC STLMLC [id number] [facility] 2019-11-24 00:00:00 2019-11-24 00:00:00 Outpatient STLMLC STLMLC [id number] [facility] 2019-11-12 00:00:00 2019-11-12 00:00:00 Outpatient STLMLC STLMLC [id number] [facility] 2019-08-04 11:39:00 2019-08-04 11:39:00 [facility] [id number] [facility] 2018-08-27 11:20:00 2018-08-27 11:20:[address] [facility] [facility] [address] [facility] [id number] [facility] 2018-06-06 02:13:00 2018-06-06 02:13:00 [facility] [address] [facility] [id number] [facility] 2018-03-05 17:07:00 2018-03-05 17:07:00 [facility] [address] [facility] [id number] [facility] 2018-03-05 17:03:00 2018-03-05 17:03:00 [facility] [address] [facility] [address] [facility] [id number] [facility] 2018-03-05 10:48:00 2018-03-05 10:48:00 [facility] [address] [facility] [address] [facility] [id number] [facility] 2018-02-25 10:45:00 2018-02-25 10:45:00 [facility] [facility] [address] [facility] [address] [facility] [id number] [facility] 2018-02-07 12:01:00 2018-02-07 12:01:00 [facility] [address] [facility] [id number] [facility] 2017-10-01 13:45:00 2017-10-01 13:45:00 [facility] [facility] [address] [facility] [id number] [facility] 2017-09-26 11:12:00 2017-09-26 11:12:00 [facility] [address] [facility] [address] [facility] [id number] [facility] 2017-09-04 11:15:00 2017-09-04 11:15:00 [facility] [address] [facility] [address] [facility] [id number] [facility] 2004-01-04 14:10:00 2004-01-06 16:32:00 Inpatient P ABHINAV CALERO MICHEL [facility] T[facility] [id number] [facility] 2003-12-31 00:00:00 2003-12-31 23:59:00 Outpatient SANDRA LADD [facility] [id number] [facility] 2003-12-28 00:00:00 2003-12-28 23:59:00 Outpatient ABHINAV DORANTES MICHEL [facility] [id number] [facility] Results Test Description Test Time Test Comments Results Result Co mments Source [facility]+2 Ab+HIV1 p24 Ag [Presence] in Serum or Plasma by [id number] 00:00:00* Test Item Value Reference Range Interpretation Comme nts HIV Ag/Ab (test code = HIV Ag/Ab) NON-REACTIVE non-reactive HIV-1 P24 Ag (test code = HI V-1 P24 Ag) NON-REACTIVE non-reactive HIV 1+2 Ab (test code = HIV 1+2 Ab) NON-REACTIVE non-reactive [facility] MedicalReagin Ab [Presence] in Serum by [id number] 00:00:00* Test Item Value Reference Range Interpretation Comme nts RPR (test code = RPR) NON-REACTIVE non-reactive [facility] Medical[facility]ious disease [id number] 00:00:00* Test Item Value Reference Range Interpretation [...] B, tet M) 22.631 ppm 23.000-27.778 A [facility] Medical[facility]inalysis, [id number] 12:26:00* Test Item Value Reference Range Interpretation Comme nts Leukocytes (test code = Leukocytes) Negative Nitrite (test code = Nitrite) negative Urobilinogen (test code = Urobilinogen) Normal Protein (test code = Protein) 2+ pH (test code = pH) 6.0 Blood (test code = Blood) 1+ Specific [place] (test code = Specific [place]) 1.015 Ketone (test code = Ketone) Negative Bilirubin (test code = Bilirubin) Negative Glucose (test code = Glucose) Negative Appearance (test code = Appearance) Slightly Cloudy Color (test code = Color) Yellow [facility] virus surface Ag [Presence] in [id number] 00:00:00* Test Item Value Reference Range Interpretation Comme nts ethnicity: (test code = ethnicity:) OTHER race: (test code = race:) UNKNOWN hep. B surf. Ag (test code = hep. B surf. Ag) NON-REACTIVE non-reactive [facility] virus Ab [Presence] in [id number] 00:00:00* Test Item Value Reference Range Interpretation Comme nts ethnicity: (test code = ethnicity:) OTHER race: (test code = race:) UNKNOWN hep. C Ab. (test code = hep. C Ab.) NON-REACTIVE [facility]-reactive [facility] Specific [id number] 21:09:00* Test Item Value Reference Range Interpretation [...] 3267) Lab Interpretation (test cod e = 91377-1) [facility] [id number] 21:09:00* Test Item Value Reference Range Interpretation [...] 3267) Lab Interpretation (test cod e = 54209-8) Abnormal [facility] Notes Date/Time Note Provider Source 2023-12-02 09:53:20 Images from the original note were not included. Notes: 07/05/23 Last Refilled: [id number] - [place], [place] - [address] [place] [address] AT [facility] Recent Visits Date Type Provider Dept 07/05/23 Office Visit Leonor Ashford, JAIRO [facility] 05/10/23 Office Visit Leonor Ashford FNP [facility] 04/05/23 Office Visit Leonor Ashford FNP [facility] 11/19/22 Office Visit Leonor Ashford FNP [facility] 09/03/22 Office Visit Dejon JAIRO Sanchez [facility] 07/18/22 Office Visit LisaLeonor castanedaJAIRO [facility] Showing recent visits within past 540 days with a meds authorizing provider and meeting all other requirements Future Appointments No visits were found meeting these conditions. Showing future appointments within next 150 days with a meds authorizing provider and meeting all other requirements Name from pharmacy: OZEMPIC 0.25-0.5 MG/DOSE PEN Will file in chart as: OZEMPIC 0.25 mg or 0.5 mg (2 mg/3 mL) PnIj Sig: inject 0.25 mg under the skin weekly. Disp: Not specified (Pharmacy requested: 3 Each) Refills: 1 Start: 11/30/2023 Class: eRX Non-formulary For: Type 2 diabetes mellitus with chronic kidney disease, without long-term current use of insulin, unspecified CKD stage Last ordered: 5 months ago (07/05/2023) by JAIRO Schaffer Last refill: 10/26/2023 Rx #: [id number] GLP-1 Receptor Agonists [id number]/30/2023 08:23 AM Protocol Details Manual Review: Review last provider note for dose changes HBA1C in normal range and within 180 days Valid encounter within last 6 months To be filled at: [facility]/pharmacy #[id number] - [address] [facility] [employer] 2023-11-12 09:44:47 Per provider, pt needs office for forms to be filled T [facility] [employer] 2023-10-23 14:13:43 Images from the original note were not included. Tata Pedro [facility] 2023-10-23 10:49:03 [facility] gastrology calling to let clinic know the are re faxing [phone] [facility] 2023-10-16 16:06:47 Contacted office to inform we have not received form in provider box. Forms will be refaxed for provider to complete. [facility] 2023-10-15 10:53:51 Crystal with [facility] calling in checking status of General Clearance Request that was faxed over on 10/10/2023 at 10:12 AM. Please contact and advise. Caron Colindres [facility] 2023-07-09 13:42:03 Spoke to patient and relayed lab results and recommendations per JAIRO Schaffer. Patient voiced understanding with no questions or concerns at this time. She reports that she is not having S/S and That she is going out of town for a month. Greer Noble RN [facility] 2023-07-09 13:27:18 Is pt having urinary s/s like burning ? She does have a bacteria in the urine but ist common on not tx unless having s/s. We can try to tx the yeast and BV and see if things improve. [facility] 2023-07-05 16:00:00 Images from the original note were not included. Venipuncture collection performed by clean technique on the left anticubitus. Total of 1 attempts were made. Slight pressure and a bandage/dressing were applied to the site(s). The patient experienced no complications. The following specimens were processed according to instructions and sent to [facility] laboratories per lab order on today: LT BLUE SST 2 RED LAV PPT DK GREEN (LiHep) DK GREEN (SodH) WASHBURN DK BLUE (K2) DK BLUE (S) ACD Blood Culture NIPT/NTD Patient presented with specimen for drop-off and was identified by name. Collection information/ total volume were documented accordingly. The following specimens were sent to [facility] laboratories per lab order on today: 24 hour urine Random urine Stool Swab Other Culture and tvag Drop off by MA [facility] 2023-06-10 08:43:32 Notes: Please Review Last Refilled: semaglutide (OZEMPIC) 0.25 mg or 0.5 mg (2 mg/3 mL) PnIj 3 Pen 0 05/10/2023 -- No Sig: inject 0.25 mg under the skin weekly. Sent to pharmacy as: Ozempic 0.25 mg or 0.5 mg (2 mg/3 mL) subcutaneous pen injector (semaglutide) Class: eRX Route: Subcutaneous Order: [id number] Date/Time Signed: 05/10/2023 15:29 E-Prescribing Status: Receipt [...] Date Type Provider Dept 07/05/23 Appointment Leonor Ashford, COMPOSITION WEATHERBOARD INSTALLER [facility] Med Showing future appointments within next 150 days with a meds authorizing provider and meeting all other requirements Raquel Campbell [facility] 2023-05-10 16:00:00 Images from the original note were not included. Venipuncture collection performed by clean technique on the right anticubitus. Total of 1 attempts were made. Slight pressure and a bandage/dressing were applied to the site(s). The patient experienced no complications. The following specimens were processed according to instructions and sent to [facility] laboratories per lab order on 05/10/2023: LT BLUE SST RED LAV 1 PPT DK GREEN (LiHep) DK GREEN (SodH) WASHBURN DK BLUE (K2) DK BLUE (S) ACD Blood Culture NIPT/NTD [facility] 2023-04-08 16:30:36 Patient is returning a call. E SPLICER HELPER Norma Garcia [facility] 2023-04-08 06:26:10 See encounter from 04/06/2023. Dr. Hameed E SPLICER HELPER FM-FAMILY MEDICINE STAFF [facility] 2023-04-05 23:36:44 Tyra Yo is a 52 year old female [facility] Lab calling to report critical Lab Page to [facility] med 11:35p Connected to Dr Yeboah @ 11:39p E SPLICER HELPER Angeles Groves [facility] 2023-04-05 16:00:00 Images from the original note were not included. Venipuncture collection performed by clean technique on the right anticubitus. Total of 1 attempts were made. Slight pressure and a bandage/dressing were applied to the site(s). The patient experienced no complications. The following specimens were processed according to instructions and sent to [facility] laboratories per lab order on 04/05/2023: LT BLUE SST 2 RED LAV 2 PPT DK GREEN (LiHep) DK GREEN (SodH) WASHBURN DK BLUE (K2) DK BLUE (S) ACD Blood Culture NIPT/NTD Patient has been identified by and name and was provided with cup, antiseptic towelette, and clean catch instructions. 1 urine specimen(s) sent. Unpreserved 1 Urine Culture Aptima tube Other urine [facility] 2023-03-28 12:04:00 Regarding: patient states she needs meds CRISTELA or she might do something ----- Message from Daniel Faye sent at 03/28/2023 12:03 PM CABLE SPLICER HELPER ----- [facility] /female 52 years old. Patient needs refill of citalopram 10 mg tablet. Patient takes medicine for depression. I'm ordering her more medicine and patient states she needs meds CRISTELA or she might do something. Are any nurses available to talk to her. she would like to talk to a nurse. [facility] 2023-03-28 12:04:00 Reason for Disposition Sometimes has thoughts of suicide Protocols used: [id number] I spoke to both the patient and [...] requesting an appointment on Saturday03/29/2023. Kiana Staley [facility] 2023-03-28 12:04:00 PSS please reach out to patient to see if they can get a sooner appt.. Currently scheduled to come in on 04/01/23. Thank you LES Noble RN [facility] 2023-03-28 12:04:00 When I saw pt in 11/2022 she has stopped Citalopram r/t SE of nausea. I do recommend she go to the ER if there is concerns about HI/SI. [facility] 2023-03-28 11:56:40 Tyra Yo is a 52 year old female is requesting a refill of citalopram 10 mg tablet CRISTELA. Patient is completely out. [facility] 2022-09-20 15:59:54 Formatting of this n ote might be different from the original. Submitted order for [facility] to [employer] through [employer]. Leandra Henao LVN [facility] 2022-08-28 11:00:00 Addended by: SAMARIA RUTHERFORD on: 09/03/2022 06:12 PM Modules accepted: Orders [facility] 2022-08-28 11:00:00 Addended by: SAMARIA RUTHERFORD on: 09/20/2022 02:53 PM Modules accepted: Orders [facility]
[2023-12-07] MEDS ORDERED: KETOROLAC 30 MG/ML INJ ONE (15:23)
[2023-12-07] MEDS ORDERED: ONDANSETRON 4 MG/2 ML VIAL ONE (15:23)
[2023-12-07 15:42] LABS: Absolute Eosinophils 0.1 K/uL (0-0.5); Absolute Monocytes 0.3 K/uL (0.1-1.3); Absolute Neutrophil 3.7 K/uL (1.8-8.0); Basophils % 0.5 % (0-1.3); Hematocrit 27.3 % (36.0-45.0); Hemoglobin 9.1 g/dL (12.0-15.0); Lymphocytes % 32.7 % (15.3-44.8); MCH 27.7 pg (27.0-35.0); MCHC 33.3 g/dL (32.0-36.0); MCV 83.1 fL (80-100); MPV 8.5 fL (7.6-11.3); Monocytes % 5.6 % (3.3-12.3); Neutrophils % 60.2 % (41.7-73.7); Platelets 209 thou/uL (152-406); RBC Red Blood Cell Count 3.28 M/uL (3.86-4.86); Red Cell Distribution Width 13.9 % (12.1-15.2)
[2023-12-07 16:03] LABS: Albumin/Globulin Ratio 0.8 (1.1-1.8); Anion Gap 9.1 mEq/L (5.0-15.0); Bilirubin Total 0.4 mg/dL (0.2-1.0); Globulin 3.9 g/dL (2.3-3.5); Potassium 4.1 mEq/L (3.5-5.1); Protein, Total 6.9 g/dL (6.4-8.2)
[2023-12-07 16:27] LABS: Differential Total Cells Count 100; Eosinophils 1 % (0-3); Lymphocytes 30 % (15-42); Monocytes 7 % (0-10)
[2023-12-07 16:28] LABS: Platelet Estimate ADEQ; Segmented Neutrophils 62 % (40-80)
[2023-12-07 16:29] LABS: Blood Morphology Comment NOT SEEN (NOT SEEN)
--- NOTE | 2023-12-07 17:02 | RAD REPORT ---
EXAMINATION: XR PELVIS CLINICAL INDICATION: Female, 53 years old. [facility] MAIN TRAUMA Bed Name: 13 TECHNIQUE: AP Pelvis radiograph was obtained. COMPARISON: CT abdomen and pelvis 03/08/2023 FINDINGS: No evidence of fracture or dislocation. Normal alignment. No evidence of AVN. Soft tissues are unremarkable. IMPRESSION: No acute or significant abnormalities.
--- NOTE | 2023-12-07 17:08 | EDPHYS ---
Physician Documentation [facility] Name: Tyra Stewart Age: 53 yrs Sex: Female : 1970 Arrival Date: 12/07/2023 Time: 14:07 Bed 13 Private MD: ED Physician Silvestre Groves HPI: 12/06 17:56 This 53 yrs old Female presents to ER via Ambulatory with complaints of Fall dr5 Injury - Low back injury. 17:56 Pt is a 53 year old female presenting for tailbone pain after falling last dr5 (12/05/23). Pt states she tripped and fell. Pt denies urinary / bowel incontinence, fever, perirectal or bilateral leg numbness, fever, IV drug use, or any other back pain red flags concerning for cauda equina.. 18:02 Details of fall: The patient fell. Onset: The symptoms/episode began/occurred 2 day(s) dr5 ago. The patient has not recently seen a physician. 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 - Infectious Disease History:: Denies. - Social history:: Smoking status: Patient denies any tobacco usage or history of. ROS: 17:56 Constitutional: as per hpi dr5 Exam: 17:56 Constitutional: This is a well developed, well nourished patient who is awake, alert, dr5 and in no acute distress. Head/Face: Normocephalic, atraumatic. Eyes: Pupils equal round and reactive to light, extra-ocular motions intact. Lids and lashes normal. Conjunctiva and sclera are non-icteric and not injected. Cornea within normal limits. Periorbital areas with no swelling, redness, or edema. Chest/axilla: Normal chest wall appearance and motion. Nontender with no deformity. No lesions are appreciated. Cardiovascular: Regular rate and rhythm with a normal S1 and S2. Normal PMI, no JVD. No pulse deficits. Respiratory: Lungs have equal breath sounds bilaterally, clear to auscultation. No rales, rhonchi or wheezes noted. No increased work of breathing, no retractions or nasal flaring. Back: No spinal tenderness. No costovertebral tenderness. Full range of motion. 17:56 Back: pain, that is moderate, of the lumbar area, left low back and right low back, ROM is normal, normal spinal alignment noted, CVA tenderness, is absent, vertebral tenderness, is not appreciated, Vital Signs: 14:40 BP 130 / 72; Pulse 93; Resp 14; Temp 99.1(O); Pulse Ox 100% on R/A; Weight 57.15 kg; ss Height 5 ft. 4 in. ; Pain 10/10; 17:14 BP 122 / 68; Pulse 84; Resp 16; Temp 98; Pulse Ox 99% ; ko1 14:40 Body Mass Index 21.63 (57.15 kg, 162.56 cm) ss 14:40 Pain Scale: Adult ss MDM: 14:21 Medical Screening Exam initiated dr5 17:56 Differential diagnosis: abrasion, contusion, fracture. Data reviewed: vital signs, dr5 nurses notes, radiologic studies, plain films. Consideration of Admission/Observation Escalation of care including admission/observation considered. I considered the following discharge prescriptions or medication management in the emergency department Medications were administered in the Emergency Department. See MAR. Care significantly affected by the following chronic conditions: Diabetes, Hypertension, Chronic Kidney Disease, Anxiety, Kidney Failure, Legally Blind. Care significantly affected by the following Social Determinants of Health: Poor access to healthcare and/or lack of insurance, Poor access to transportation, Unemployment. Counseling: I had a detailed discussion with the patient and/or guardian regarding the historical points, exam findings, and any diagnostic results supporting the discharge/admit diagnosis, lab results, radiology results, the need for outpatient follow up, for definitive care, a family practitioner, Cold Rolling Machine Setter, to return to the emergency department if symptoms worsen or persist or if there are any questions or concerns that arise at home. Medication response: Toradol markedly relieved the patient's pain, Zofran markedly relieved the patient's nausea. Response to treatment: the patient's symptoms have markedly improved after treatment. ED course: No fracture noted on x-ray. Pain has improved. Will send patient home with short course of low dose steroid for inflammation and muscle relaxers to take as needed. I recommended patient follow up with fiberglass pipe covering supervisor for increased kidney function - patient reports she has tried to make appointment but unable to get in. I told her to try and make an appointment with any fiberglass pipe covering supervisor. at bedside. Labs / x-ray results printed and given to patient on discharge.. 12/06 15:10 Order name: CBC with Manual Differential; Complete Time: 16:29 dr5 12/06 15:10 Order name: CMP; Complete Time: 16:07 dr5 12/06 15:10 Order name: HCG-Quantitative; Complete Time: 16: dr5 12/06 15:10 Order name: Pelvis XRAY; Complete Time: 17:05 dr5 Administered Medications: 15:23 Drug: Ketorolac IVP 15 mg IVP once Route: IVP; Site: right antecubital; ko1 15:38 Follow up: Response: No adverse reaction ko1 15:23 Drug: Ondansetron IVP 4 mg IVP once; over 2 minutes Route: IVP; Site: right antecubital;ko1 15:38 Follow up: Response: No adverse reaction ko1 Disposition Summary: 12/07/23 17:08 Discharge Ordered Notes: Location: Home dr5 Condition: Stable dr5 Diagnosis - Low back pain dr5 - Chronic kidney disease, unspecified dr5 Followup: dr5 - With: Emergency Department - When: As needed - Reason: Worsening of condition Followup: dr5 - With: Private Physician - When: 1 - 2 days - Reason: Recheck today's complaints, Continuance of care, Re-evaluation by your physician Discharge Instructions: - Discharge Summary Sheet dr5 - Acute Back Pain, Adult dr5 Forms: - Medication Reconciliation Form dr5 - Patient Portal Instructions dr5 - Leadership Thank You Letter dr5 Prescriptions: - Prednisone 20 mg Oral Tablet - take 1 tablet ORAL route once daily for 5 days; 5 tablet; Refills: 0, Product dr5 Selection Permitted - Cyclobenzaprine 10 mg Oral tablet - take 1 tablet ORAL route every 8 hours As needed; 20 tablet; Refills: 0, dr5 Product Selection Permitted Signatures: Dispatcher [employer] EDJamila Santacruz RN RN ss Lyssa Alston RN RN ko1 Brown, Mello, GLUE SPREADING MACHINE OPERATOR-C GLUE SPREADING MACHINE OPERATOR-Cdr5 Corrections: (The following items were deleted from the chart) 15:10 15:10 CBC with Manual Differential+H.LAB.BRZ ordered. EDMS EDMS 15:10 15:10 COMPREHENSIVE METABOLIC PANEL+C.LAB.BRZ ordered. EDMS EDMS 15:10 15:10 QUANTITATIVE HCG+C.LAB.BRZ ordered. EDMS EDMS 15:10 15:10 Pelvis+RAD.RAD.BRZ ordered. EDMS EDMS
--- NOTE | 2023-12-07 17:08 | ER ---
Nurse's Notes [facility] Name: Tyra Stewart Age: 53 yrs Sex: Female : 1970 Arrival Date: 12/07/2023 Time: 14:07 Bed 13 Private MD: Diagnosis: Low back pain;Chronic kidney disease, unspecified Presentation: 12/06 14:40 Chief complaint: Patient states: fall from standing while trying to make her bed on ss . Pt states, "I fell flat onto my tailbone.". Coronavirus screen: Client denies travel out of the [place] in the last 14 days. Ebola Screen: Patient denies exposure to infectious person. Patient denies travel to an Ebola-affected area in the 21 days before illness onset. Initial Sepsis Screen: Does the patient meet any 2 criteria? No. Patient's initial sepsis screen is negative. Does the patient have a suspected source of infection? No. Patient's initial sepsis screen is negative. Risk Assessment: Do you want to hurt yourself or someone else? Patient reports no desire to harm self or others. Onset of symptoms was December 05, 2023. 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 - Infectious Disease History:: Denies. - Social history:: Smoking status: Patient denies any tobacco usage or history of. Screenin:00 [facility] ED Fall Risk Assessment (Adult) History of falling in the last 3 months, ko1 including since admission Yes- single mechanical fall (1 pt) Confusion or Disorientation No (0 pts) Intoxicated or Sedated No (0 pts) Impaired Gait No (0 pts) Mobility Assist Device Used No (0 pt) Altered Elimination No (0 pt) Score/Fall Risk Level 0 - 2 = Low Risk Oriented to surroundings, Maintained a safe environment, Educated pt \\T\\ family on fall prevention, incl call for assistance when getting out of bed, Assessed \\T\\ reinforced patient's understanding of fall precautions, Hourly rounding (assess needs \\T\\ fall precautionary measures) done. Abuse screen: Denies threats or abuse. Denies injuries from another. Nutritional screening: No deficits noted. Tuberculosis screening: No symptoms or risk factors identified. Assessment: 15:00 General: Appears in no apparent distress. Behavior is calm, cooperative, appropriate ko1 for age. Pain: Complains of pain in lumbar area, left low back and right low back. Neuro: No deficits noted. Cardiovascular: No deficits noted. Respiratory: No deficits noted. GI: No deficits noted. : No deficits noted. EENT: No deficits noted. Derm: No deficits noted. Musculoskeletal: Reports pain in back. Vital Signs: 14:40 BP 130 / 72; Pulse 93; Resp 14; Temp 99.1(O); Pulse Ox 100% on R/A; Weight 57.15 kg; ss Height 5 ft. 4 in. ; Pain 10/10; 17:14 BP 122 / 68; Pulse 84; Resp 16; Temp 98; Pulse Ox 99% ; ko1 14:40 Body Mass Index 21.63 (57.15 kg, 162.56 cm) ss 14:40 Pain Scale: Adult ss ED Course: 14:10 Patient arrived in ED. ra3 14:12 Mello Brown FNP-C is PSYCHIATRICP. dr5 14:12 Silvestre Groves MD is Attending Physician. dr5 14:42 Triage completed. ss 14:42 Arm band placed on right wrist. ss 14:56 Lyssa Alston, ROLAND is Primary Nurse. ko1 15:00 Patient has correct armband on for positive identification. Allergy band placed. Bed in ko1 low position. Call light in reach. Side rails up X 1. Provided Education on: call light, meds, labs. Client placed on continuous cardiac and pulse oximetry monitoring. NIBP monitoring applied. milling/polishing operator on. Door closed. Noise minimized. Lights dimmed. Warm blanket given. Pillow given. 15:00 No provider procedures requiring assistance completed. Inserted saline lock: 20 gauge ko1 in right antecubital area, using aseptic technique. Blood collected. Flushed with 10 mL NS. 15:20 HCG-Quantitative Sent. ko1 15:20 CMP Sent. ko1 15:20 CBC with Manual Differential Sent. ko1 16:17 Pelvis XRAY In Process Unspecified. EDMS 17:14 IV discontinued, intact, bleeding controlled, No redness/swelling at site. Pressure ko1 dressing applied. Administered Medications: 15:23 Drug: Ketorolac IVP 15 mg IVP once Route: IVP; Site: right antecubital; ko1 15:38 Follow up: Response: No adverse reaction ko1 15:23 Drug: Ondansetron IVP 4 mg IVP once; over 2 minutes Route: IVP; Site: right antecubital;ko1 15:38 Follow up: Response: No adverse reaction ko1 Medication: 15:00 VIS not applicable for this client. ko1 Outcome: 17:08 Discharge ordered by . dr5 17:14 Discharged to home ambulatory, with family, ko1 17:14 Condition: stable 17:14 Discharge instructions given to patient, family, Instructed on discharge instructions, follow up and referral plans. medication usage, Demonstrated understanding of instructions, follow-up care, medications, Prescriptions given X 2, 17:18 Patient left the ED. ko1 Signatures: Dispatcher [employer] EDMS Jamila Del Rosario RN RN Lyssa Aburto RN RN ko1 Cady Marcano ra3 Mello Brown, WOOL DYER-C WOOL DYER-Cdr5
[2023-12-08 04:55] VITALS: BP 122/68; TEMP 98; O2SAT 99
== END 2023-12-07 17:18 | disposition home or self-care (01) ==
LOC: ER 14:07
DX: M54.50 Low back pain, unspecified (principal); E11.22 Type 2 diabetes mellitus with diabetic chronic kidney disease; I12.9 Hypertensive chronic kidney disease with stage 1 through stage 4 chronic kidney disease, or unspecified chronic kidney disease; N18.9 Chronic kidney disease, unspecified
CPT/HCPCS: 85025; 36415; 84702; 80053; 72170; 96375; 96374; 99285; J2405

== ENCOUNTER 2023-12-16 08:54 | Emergency (ER) | payer BC, OTHER ==
--- OUTSIDE RECORDS SUMMARY | 2023-12-16 08:58 | XMS REPORT | Continuity of Care Document ---
Author Name Unknown Address [address] [facility] [address] [place] [address] [facility] thconnect Address [address] [facility] [address] [place] [address] Care Team Providers Care [place] Measurer Name Role Phone Leonor Romeo Primary Care Physician [phone] Althea Grant Attending Clinician Unavailable LORNA BOLIVAR Attending Clinician Unavailab le DOCTOR UNASSIGNED, NO NAME Attending Clinician [facility] Leonor Romeo Attending Clinician [phone] Shital Hameed MD Attending Clinician Leonor Romeo Attending Clinician [phone] LEONOR ASHFORD Attending Clinician Unavailable Lab, Ang - Db Attending Clinician Unavailable [email or web address] Attending Clinician Unavaila SAMARIA Corrigan Attending Clinician Unavailable Samaria Rutherford Attending Clinician [phone] Doctor Unassigned, [place] Attending Clinician [facility] Nephrology Attending Clinician ABHINAV CALERO Attending Clinician ABHINAV Corrales Attending Clinician SANDRA Reyes Attending Clinician LORNA Jimenez Admitting Clinician UnavailRICO Alvarez Admitting Clinician LEONOR Astudillo Admitting Clinician Unavailable [email or web address] Admitting Clinician LONG Mahan Admitting Clinician SANDRA Sinclair Admitting Clinician ABHINAV Osorio Admitting Clinician Michael crystal Payers Payer Name Policy Type Policy Number Effective Date Expirati on Date Source MEDICARE PART A \\T\\ B [id number] 2014 00:00:00 Problems Condition Name Condition Details [...] Diabetes Mellitus Problem Active 09-02 00:00: 00 [facility] Type 2 diabetes mellitus Type 2 Diabetes Mellitus Problem Active 09-02 00:00: 00 [facility] Anxiety Anxiety Problem Active 09-02 00:00: 00 [facility] Mixed anxiety and depressive disorder Mixed Anxiety and Depressive Disorder Problem Active 09-02 00:00: 00 [facility] Acute vaginitis Acute vaginitis Disease Active 07-04 00:00: 00 [facility] Dysuria Dysuria Disease Active 07-04 00:00: 00 [facility] Arthralgia of both hands Arthralgia of both hands Disease Active 2022-02 0 00:00: 00 [facility] Need for hepatitis C screening test Need for hepatitis C screening test Disease Active 2022-02 0 00:00: 00 [facility] Chronic kidney disease Chronic kidney disease Disease Active 08-28 00:00: 00 [facility] Depression Depression Disease Active 08-28 00:00: 00 [facility] Serous retinal detachment , unspecifie d eye Serous retinal detachment , unspecifie d eye Disease Active 08-28 00:00: 00 Overview: Formattin g of this note might be different from the original. RIGHT eye [facility] Neuropathy Neuropathy Disease Active 08-28 00:00: 00 [facility] HTN (hypertens ion) HTN (hypertens ion) Disease Active 07-18 00:00: 00 [facility] Diabetes Diabetes Disease Active 07-18 00:00: 00 [facility] Screening for colorectal cancer Screening for colorectal cancer Disease Active 07-18 00:00: 00 [facility] Essential hypertensi on Essential hypertensi on Disease Active 07-18 00:00: 00 [facility] Type 2 diabetes mellitus with chronic kidney disease, without long-term current use of insulin, unspecifie d CKD stage Type 2 diabetes mellitus with chronic kidney disease, without long-term current use of insulin, unspecifie d CKD stage Disease Active 07-18 00:00: 00 [facility] Diarrhea, unspecifie d type Diarrhea, unspecifie d type Disease Active 07-18 00:00: 00 [facility] Anxiety and depression Anxiety and depression Disease Active 07-18 00:00: 00 [facility] Menopause present Menopause Present [...] Medical Trigger finger Trigger finger Problem Active [facility] 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 [facility] Legal blindness Legal blindness Problem Active [facility] Anemia Anemia Problem Active [facility] Vitamin D deficiency Vitamin D deficiency Problem Active [facility] Diabetes mellitus without complicati on Diabetes Problem Active [facility] Hyperlipid emia Hyperlipid emia Problem Active [facility] Premenopau braeden menorrhagi a Excessive bleeding in premenopau braeden period Problem Active [facility] Microalbum inuria Microalbum inuria Problem Active [facility] Chronic fatigue syndrome Chronic fatigue Problem Active [facility] [id number] Moderate episode of recurrent major depressive disorder Problem Active [facility] Chronic kidney disease stage 3 +5th digit eff 11/12/19*Ch ronic kidney disease, stage 3 Problem Active [facility] Diabetic polyneurop athy Secondary diabetes with peripheral neuropathy Problem Active [facility] [id number] 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, unspecifie d proliferat jewell retinopath y type Problem Active [facility] Allergies, Adverse Reactions, Alerts Allergy Name Allergy Type Status Severity Reaction(s) Onset Date Inactive Date Treating Clinician Comments Source NO KNOWN ALLERGIE S Drug Class Active [facility] Social History Social Habit Start Date Stop Date Quantity Comments Source History of Tobacco Use [facility] Gender identity [facility] Sexual orientation [facility] History of Social function 2023-07-05 00:00:00 2023-07-05 00:00:00 [facility] Tobacco use and exposure 2022-07-18 00:00:00 2022-07-18 00:00:00 Smokeless tobacco non-user [facility] Sex assigned at 1970 00:00:00 1970 00:00:00 [facility] Smoking Status Start Date Stop Date Source Never Smoker [facility] Medications Ordered Medication Name Filled Medication Name Start Date Stop Date Current Medication? Ordering Clinician Indication Dosage Frequency Signature (SIG) Comments Components Source semaglutide (OZEMPIC) 0.25 mg or 0.5 mg (2 mg/3 mL) PnIj 4- 0 00:00: 00 Yes [id number] .25mg INJECT 0.25 MG UNDER THE SKIN WEEKLY. [facility] fluconazole (DIFLUCAN) 150 mg tablet 07-08 00:00: 00 Yes [id number] Take 1 tab today and repeat 1 in 72 hrs [facility] metroNIDAZO LE (FLAGYL) 500 mg tablet 07-08 00:00: 00 07-16 04:59 :00 No [id number] 500mg Take 1 tablet by mouth every 12 (twelve) hours for 7 days. [facility] citalopram 10 mg tablet 07-04 00:00: 00 Yes [id number] 10mg Take 1 tablet by mouth at bedtime. [facility] gabapentin 300 mg capsule 07-04 00:00: 00 Yes [id number] 300mg Take 1 capsule by mouth in the morning. [facility] insulin glargine U-300 conc (TOUJEO MAX U-300 SOLOSTAR) 300 unit/mL (3 mL) InPn 07-04 00:00: 00 Yes [id number] 20U inject 20 Units under the skin at bedtime. [facility] cephALEXin 500 mg capsule 07-04 00:00: 00 Yes [id number] 500mg Take 1 capsule by mouth in the morning and 1 capsule in the evening. [facility] semaglutide (OZEMPIC) 0.25 mg or 0.5 mg (2 mg/3 mL) Ij 07-04 00:00: 00 12-02 00:00 :00 No [id number] .25mg inject 0.25 mg under the skin weekly. [facility] semaglutide (OZEMPIC) 0.25 mg or 0.5 mg (2 mg/3 mL) Ij 30 00:00: 00 07-04 00:00 :00 No [id number] .25mg INJECT 0.25 MG UNDER THE SKIN WEEKLY. [facility] citalopram 10 mg tablet 329 00:00: 00 07-04 00:00 :00 No [id number] 10mg Take 1 tablet by mouth at bedtime. [facility] gabapentin 300 mg capsule 3- 00:00: 00 07-04 00:00 :00 No [id number] 300mg Take 1 capsule by mouth in the morning. [facility] semaglutide (OZEMPIC) 0.25 mg or 0.5 mg (2 mg/3 mL) PnIj 3- 00:00: 00 06-10 00:00 :00 No [id number] .25mg inject 0.25 mg under the skin weekly. [facility] lisinopriL 10 mg tablet 04-05 00:00: 00 Yes [id number] 10mg Take 1 tablet by mouth in the morning. [facility] insulin glargine U-300 conc (TOUJEO MAX U-300 SOLOSTAR) 300 unit/mL (3 mL) InPn 04-05 00:00: 00 07-04 00:00 :00 No [id number] 20U inject 20 Units under the skin at bedtime. [facility] citalopram 10 mg tablet 2- 00:00: 00 05-09 00:00 :00 No [id number] 10mg Take 1 tablet by mouth at bedtime. [facility] citalopram 10 mg tablet 2-15 00:00: 00 04-05 00:00 :00 No [id number] 10mg Take 1 tablet by mouth at bedtime. [facility] acetaminoph en (TYLENOL ARTHRITIS PAIN) 650 mg CR tablet 2022-02 0-10 00:00: 00 Yes [id number] 650mg Take 1 tablet by mouth every 8 (eight) hours as needed for Pain. [facility] lisinopriL 10 mg tablet 2022-02 0-09 00:00: 00 04-05 00:00 :00 No [id number] 10mg Take 1 tablet by mouth in the morning. [facility] ibuprofen 600 mg tablet 2022-02 0- 00:00: 00 2023- 10-09 00:00 :00 No [id number] 600mg Take 1 tablet by mouth every 6 (six) hours as needed for Temp > 38.5 C for up to 14 days. [facility] flash glucose sensor (FREESTYLE SULEIMAN 2 SENSOR) Kit 8-10 00:00: 00 Yes [id number] 1{each} inject 1 Each under the skin every 14 (fourteen) days. Use as directed to check blood sugar 3x a day for diagnosis E11.65 [facility] Blood-Gluco se Sensor (FREESTYLE SULEIMAN 3 SENSOR) Tricia 09-03 00:00: 00 Yes [id number] 1{each} inject 1 Each under the skin every 14 (fourteen) days. Use as directed to check blood sugar 3x a day for diagnosis E11.65 [facility] semaglutide (OZEMPIC) 0.25 mg or 0.5 mg (2 mg/3 mL) PnIj 09-03 00:00: 00 05-09 00:00 :00 No [id number] Start 0.25 mg weekly dose for 4 weeks and then progress to 0.5mg weekly injection. [facility] gabapentin 300 mg capsule 08-28 00:00: 00 05-09 00:00 :00 No [id number] 300mg Take 1 capsule by mouth in the morning. [facility] Blood-Gluco se Sensor (FREESTYLE SULEIMAN 3 SENSOR) Tricia 08-28 00:00: 00 09-03 00:00 :00 No [id number] 1{each} inject 1 Each under the skin every 14 (fourteen) days. Use as directed to check blood sugar 3x a day for diagnosis E11.65 [facility] semaglutide (OZEMPIC) 0.25 mg or 0.5 mg (2 mg/3 mL) PnIj 08-28 00:00: 00 09-03 00:00 :00 No [id number] Start 0.25 mg weekly dose for 4 weeks and then progress to 0.5mg weekly injection. [facility] Nitrofurant oin&Nit. Macrocryst 100 mg capsule 08-15 00:00: 00 07-04 00:00 :00 No TAKE 1 CAPSULE BY MOUTH EVERY 12 HOURS FOR 10 DAYS [facility] flash glucose sensor (FREESTYLE SULEIMAN 2 SENSOR) Kit 07-23 00:00: 00 08-28 00:00 :00 No [id number] 1{kit} 1 Kit every 14 (fourteen) days. [facility] lisinopriL 10 mg tablet 07-18 15:39: 43 07-18 00:00 :00 No 10mg Take 1 tablet by mouth in the morning. [facility] insulin glargine U-300 conc (TOUJEO MAX U-300 SOLOSTAR) 300 unit/mL (3 mL) In 07-18 15:39: 43 07-18 00:00 :00 No 60U inject 60 Units under the skin at bedtime. [facility] citalopram 10 mg tablet 07-18 15:39: 43 07-18 00:00 :00 No 10mg Take 1 tablet by mouth at bedtime. [facility] insulin glargine U-300 conc (TOUJEO MAX U-300 SOLOSTAR) 300 unit/mL (3 mL) In 07-18 00:00: 00 04-05 00:00 :00 No [id number] 20U inject 20 Units under the skin at bedtime. [facility] citalopram 10 mg tablet 07-18 00:00: 00 03-28 00:00 :00 No [id number] 10mg Take 1 tablet by mouth at bedtime. [facility] lisinopriL 10 mg tablet 07-18 00:00: 00 11-19 00:00 :00 No [id number] 10mg Take 1 tablet by mouth in the morning. [facility] Atorvastati n Calcium 20 MG Atorvastati n Calcium 20 MG - 00:00: 00 No 1{table t} QD Atorvastat in Calcium 20 MG FreeStyle [place] FreeStyle Suleiman [place]man 03-05 00:00: 00 Yes Na Grant as directed [facility] FreeStyle Suleiman Sensor System FreeStyle Suleiman Sensor System 03-05 00:00: 00 Yes Na Grant as directed [facility] FreeStyle Suleiman [place] - FreeStyle Suleiman [place]man - 03-05 00:00: 00 No FreeStyle [place] - FreeStyle S[place]iman [place] - FreeStyle Suleiman O[place]man - 03-05 00:00: 00 No FreeStyle [place] - FreeStyle Suleiman Sensor System - FreeStyle Suleiman Sensor System - 03-05 00:00: 00 No FreeStyle [place] Sensor System - Citalopram Hydrobromid e Citalopram Hydrobromid e 02-25 00:00: 00 Yes Na Grant 1 tablet [facility] Eliquis 5 mg Eliquis 5 mg Yes Na Grant one [facility] Paxil Paxil Yes Na Grant 1 tablet in the morning [facility] Toujeo SoloStar Toujeo SoloStar Yes Na Grant 70 units [facility] Gabapentin Gabapentin Yes Na Grant 2 capsule before bedtime [facility] Ferralet 90 Ferralet 90 Yes Na Grant 1 tablet [facility] Lisinopril Lisinopril Yes Na Grant 1 tablet [facility] Pravastatin Sodium Pravastatin Sodium Yes Na Grant 1 tablet [facility] Clotrimazol e Clotrimazol e Yes Na Grant 1 applicatio n to affected area [facility] Gabapentin 300 MG Gabapentin 300 MG No [...] every day by oral route. [facility] gabapentin 100 mg capsule Take 1 capsule 3 times a day by oral route. gabapentin 100 mg capsule Take 1 capsule 3 times a day by oral route. No 1capsul e(s) TID gabapentin 100 mg capsule Take 1 capsule 3 times a day by oral route. [facility] lisinopril 10 mg tablet Take 1 tablet every day by oral route. lisinopril 10 mg tablet Take 1 tablet every day by oral route. No 1 Q1D lisinopril 10 mg tablet Take 1 tablet every day by oral route. [facility] estradiol 0.01% (0.1 mg/gram) vaginal cream Insert 0.5 g by vaginal route at bedtime for 30 days. estradiol 0.01% (0.1 mg/gram) vaginal cream Insert 0.5 g by vaginal route at bedtime for 30 days. No .5g estradiol 0.01% (0.1 mg/gram) vaginal cream Insert 0.5 g by vaginal route at bedtime for 30 days. [facility] Immunizations Ordered Immunization Name Filled Immunization Name Date Status Comments Source Zoster Vaccine Recombinant 2022-11-19 00:00:00 Completed [facility] Zoster Vaccine Recombinant 2022-11-19 00:00:00 Completed SARS-COV-2 COVID-19 PFIZER VACCINE 2020-05-27 00:00:00 Completed [facility] SARS-COV-2 COVID-19 PFIZER VACCINE 2020-05-27 00:00:00 Completed [facility] SARS-COV-2 COVID-19 PFIZER VACCINE 2020-05-27 00:00:00 Completed [facility] SARS-COV-2 COVID-19 PFIZER VACCINE 2020-05-27 00:00:00 Completed [facility] SARS-COV-2 COVID-19 PFIZER VACCINE 2020-05-27 00:00:00 Completed [facility] SARS-COV-2 COVID-19 PFIZER VACCINE 2020-05-27 00:00:00 Completed [facility] SARS-COV-2 COVID-19 PFIZER VACCINE 2020-05-27 00:00:00 Completed [facility] SARS-COV-2 COVID-19 PFIZER VACCINE 2020-05-27 00:00:00 Completed [facility] SARS-COV-2 COVID-19 PFIZER VACCINE 2020-05-27 00:00:00 Completed [facility] SARS-COV-2 COVID-19 PFIZER VACCINE 2020-05-27 00:00:00 Completed [facility] SARS-COV-2 COVID-19 PFIZER VACCINE 2020-05-27 00:00:00 Completed [facility] SARS-COV-2 COVID-19 PFIZER VACCINE 2020-05-27 00:00:00 Completed [facility] SARS-COV-2 COVID-19 PFIZER VACCINE 2020-05-05 00:00:00 Completed [facility] SARS-COV-2 COVID-19 PFIZER VACCINE 2020-05-05 00:00:00 Completed [facility] SARS-COV-2 COVID-19 PFIZER VACCINE 2020-05-05 00:00:00 Completed [facility] SARS-COV-2 COVID-19 PFIZER VACCINE 2020-05-05 00:00:00 Completed [facility] SARS-COV-2 COVID-19 PFIZER VACCINE 2020-05-05 00:00:00 Completed [facility] SARS-COV-2 COVID-19 PFIZER VACCINE 2020-05-05 00:00:00 Completed [facility] SARS-COV-2 COVID-19 PFIZER VACCINE 2020-05-05 00:00:00 Completed [facility] SARS-COV-2 COVID-19 PFIZER VACCINE 2020-05-05 00:00:00 Completed [facility] SARS-COV-2 COVID-19 PFIZER VACCINE 2020-05-05 00:00:00 Completed [facility] SARS-COV-2 COVID-19 PFIZER VACCINE 2020-05-05 00:00:00 Completed [facility] SARS-COV-2 COVID-19 PFIZER VACCINE 2020-05-05 00:00:00 Completed [facility] SARS-COV-2 COVID-19 PFIZER VACCINE 2020-05-05 00:00:00 Completed [facility] Afluria Afluria 2019-11-24 14:21:00 Completed [facility] Afluria Afluria 2019-11-24 14:21:00 Completed [facility] Afluria Afluria 2017-11-25 12:09:00 Completed [facility] Afluria Afluria 2017-11-25 12:09:00 Completed [facility] SARS-COV-2 COVID-19 PFIZER VACCINE Unknown Completed [facility] SARS-COV-2 COVID-19 PFIZER VACCINE Unknown Completed [facility] SARS-COV-2 COVID-19 PFIZER VACCINE Unknown Completed [facility] Zoster Vaccine Recombinant Unknown Completed [facility] SARS-COV-2 COVID-19 PFIZER VACCINE Unknown Completed [facility] Zoster Vaccine Recombinant Unknown Completed [facility] SARS-COV-2 COVID-19 PFIZER VACCINE Unknown Completed [facility] Zoster Vaccine Recombinant Unknown Completed [facility] SARS-COV-2 COVID-19 PFIZER VACCINE Unknown Completed [facility] Zoster Vaccine Recombinant Unknown Completed [facility] Zoster Vaccine Recombinant Unknown Completed [facility] SARS-COV-2 COVID-19 PFIZER VACCINE Unknown Completed [facility] Zoster Vaccine Recombinant Unknown Completed [facility] SARS-COV-2 COVID-19 PFIZER VACCINE Unknown Completed [facility] Zoster Vaccine Recombinant Unknown Completed [facility] SARS-COV-2 COVID-19 PFIZER VACCINE Unknown Completed [facility] Zoster Vaccine Recombinant Unknown Completed [facility] SARS-COV-2 COVID-19 PFIZER VACCINE Unknown Completed [facility] Zoster Vaccine Recombinant Unknown Completed [facility] SARS-COV-2 COVID-19 PFIZER VACCINE Unknown Completed [facility] Zoster Vaccine Recombinant Unknown Completed [facility] Zoster Vaccine Recombinant Unknown Completed [facility] SARS-COV-2 COVID-19 PFIZER VACCINE Unknown Completed [facility] Zoster Vaccine Recombinant Unknown Completed [facility] SARS-COV-2 COVID-19 PFIZER VACCINE Unknown Completed [facility] SARS-COV-2 COVID-19 PFIZER VACCINE Unknown Completed [facility] Zoster Vaccine Recombinant Unknown Completed [facility] SARS-COV-2 COVID-19 PFIZER VACCINE Unknown Completed [facility] Zoster Vaccine Recombinant Unknown Completed [facility] SARS-COV-2 COVID-19 PFIZER VACCINE Unknown Completed [facility] Zoster Vaccine Recombinant Unknown Completed [facility] Zoster Vaccine Recombinant Unknown Completed [facility] Zoster Vaccine Recombinant Unknown Completed [facility] SARS-COV-2 COVID-19 PFIZER VACCINE Unknown Completed [facility] SARS-COV-2 COVID-19 PFIZER VACCINE Unknown Completed [facility] Zoster Vaccine Recombinant Unknown Completed [facility] SARS-COV-2 COVID-19 PFIZER VACCINE Unknown Completed [facility] SARS-COV-2 COVID-19 PFIZER VACCINE Unknown Completed [facility] Zoster Vaccine Recombinant Unknown Completed [facility] SARS-COV-2 COVID-19 PFIZER VACCINE Unknown Completed [facility] Zoster Vaccine Recombinant Unknown Completed [facility] SARS-COV-2 COVID-19 PFIZER VACCINE Unknown Completed [facility] Zoster Vaccine Recombinant Unknown Completed [facility] Vital Signs Vital Name Observation Time Observation [...] Systolic blood pressure 2023-07-05 20:16:00 180 mm[Hg] [facility] Diastolic blood pressure 2023-07-05 20:16:00 96 mm[Hg] [facility] Heart rate 2023-07-05 20:15:00 97 /min [facility] Body temperature 2023-07-05 20:15:00 37 Rose [facility] Respiratory rate 2023-07-05 20:15:00 18 /min [facility] Body height 2023-07-05 20:15:00 162.6 cm [facility] Body weight 2023-07-05 20:15:00 57.652 kg [facility] BMI 2023-07-05 20:15:00 21.82 kg/m2 [facility] Oxygen saturation in Arterial blood by Pulse oximetry 2023-07-05 20:15:00 98 /min [facility] Systolic blood pressure 2023-05-10 20:09:00 118 mm[Hg] [facility] Diastolic blood pressure 2023-05-10 20:09:00 73 mm[Hg] [facility] Heart rate 2023-05-10 20:09:00 94 /min [facility] Body temperature 2023-05-10 20:09:00 36.72 Rose [facility] Respiratory rate 2023-05-10 20:09:00 18 /min [facility] Body height 2023-05-10 20:09:00 162.6 cm [facility] 2023-05-10 20:09:00 60.918 kg [facility] BMI 2023-05-10 20:09:00 23.05 kg/m2 [facility] Oxygen saturation in Arterial blood by Pulse oximetry 2023-05-10 20:09:00 99 /min [facility] Systolic blood pressure 2023-04-05 21:42:00 144 mm[Hg] [facility] Diastolic blood pressure 2023-04-05 21:42:00 83 mm[Hg] [facility] Heart rate 2023-04-05 21:42:00 102 /min Unive [facility] Body height 2023-04-05 21:42:00 162.6 cm Univ [facility] Body weight 2023-04-05 21:42:00 57.698 kg Univ [facility] BMI 2023-04-05 21:42:00 21.83 kg/m2 Univ [facility] Oxygen saturation in Arterial blood by Pulse oximetry 2023-04-05 21:42:00 99 /min [facility] Systolic blood pressure 2022-11-19 16:08:00 105 mm[Hg] [facility] Diastolic blood pressure 2022-11-19 16:08:00 70 mm[Hg] [facility] Heart rate 2022-11-19 16:08:00 94 /min Unive [facility] Body height 2022-11-19 16:08:00 162.6 cm [facility] 2022-11-19 16:08:00 59.875 kg [facility] BMI 2022-11-19 16:08:00 22.66 kg/m2 Univ [facility] Oxygen saturation in Arterial blood by Pulse oximetry 2022-11-19 16:08:00 100 /min [facility] Systolic blood pressure 2022-09-03 14:37:00 143 mm[Hg] [facility] Diastolic blood pressure 2022-09-03 14:37:00 84 mm[Hg] [facility] Heart rate 2022-09-03 14:29:00 83 /min [facility] Body height 2022-09-03 14:29:00 162.6 cm [facility] Body weight 2022-09-03 14:29:00 61.417 kg Univ [facility] BMI 2022-09-03 14:29:00 23.24 kg/m2 Univ [facility] Oxygen saturation in Arterial blood by Pulse oximetry 2022-09-03 14:29:00 99 /min [facility] Systolic blood pressure 2022-08-28 16:17:00 147 mm[Hg] [facility] Diastolic blood pressure 2022-08-28 16:17:00 85 mm[Hg] [facility] Heart rate 2022-08-28 16:17:00 92 /min [facility] Body height 2022-08-28 16:17:00 162.6 cm Univ [facility] Body weight 2022-08-28 16:17:00 61.326 kg [facility] BMI 2022-08-28 16:17:00 23.21 kg/m2 [facility] Systolic blood pressure 2022-08-28 16:17:00 147 mm[Hg] [facility] Diastolic blood pressure 2022-08-28 16:17:00 85 mm[Hg] [facility] Heart rate 2022-08-28 16:17:00 92 /min [facility] Body height 2022-08-28 16:17:00 162.6 cm [facility] Body weight 2022-08-28 16:17:00 61.326 kg [facility] BMI 2022-08-28 16:17:00 23.21 kg/m2 Univ [facility] Systolic blood pressure 2022-07-18 20:23:00 134 mm[Hg] [facility] Diastolic blood pressure 2022-07-18 20:23:00 88 mm[Hg] [facility] Heart rate 2022-07-18 20:23:00 98 /min [facility] Body temperature 2022-07-18 20:23:00 36.94 Rose [facility] Body height 2022-07-18 20:23:00 162.6 cm [facility] Body weight 2022-07-18 20:23:00 59.421 kg [facility] BMI 2022-07-18 20:23:00 22.49 kg/m2 [facility] Oxygen saturation in Arterial blood by Pulse oximetry 2022-07-18 20:23:00 100 /min [facility] height 2021-08-29 10:40:00 64.00 [in_i] Com [facility] weight 2021-08-29 10:40:00 146.0 [lb_av] Co [facility] temperature 2021-08-29 10:40:00 98.6 [degF] Com [facility] bmi 2021-08-29 10:40:00 25.06 kg/m2 Comm on [facility] oximetry 2021-08-29 10:40:00 99 % Commo n [facility] respiratory rate 2021-08-29 10:40:00 17 /min [facility] blood pressure systolic 2021-08-29 10:40:00 129 mm[Hg] [facility] blood pressure diastolic 2021-08-29 10:40:00 77 mm[Hg] [facility] height 2021-08-29 11:40:00 64.00 [in_i] Com [facility] weight 2021-08-29 11:40:00 146.0 [lb_av] Co [facility] temperature 2021-08-29 11:40:00 98.6 [degF] Com [facility] bmi 2021-08-29 11:40:00 25.06 kg/m2 Comm on [facility] oximetry 2021-08-29 11:40:00 99 % Commo n [facility] respiratory rate 2021-08-29 11:40:00 17 /min [facility] blood pressure systolic 2021-08-29 11:40:00 129 mm[Hg] [facility] blood pressure diastolic 2021-08-29 11:40:00 77 mm[Hg] [facility] height 2021-04-18 14:00:00 64.00 [in_i] Com [facility] weight 2021-04-18 14:00:00 153.2 [lb_av] Co mmon [facility] temperature 2021-04-18 14:00:00 97.2 [degF] Com [facility] bmi 2021-04-18 14:00:00 26.29 kg/m2 Comm on [facility] oximetry 2021-04-18 14:00:00 100 % Commo n [facility] respiratory rate 2021-04-18 14:00:00 18 /min [facility] blood pressure systolic 2021-04-18 14:00:00 190 mm[Hg] [facility] blood pressure diastolic 2021-04-18 14:00:00 98 mm[Hg] [facility] Procedures Procedure Date / Time Performed Performing Clinician Source POCT URINALYSIS 2023-07-05 20:58:00 Leonor Ashford [facility] VARICELLA-ZOSTER VACCINE, (SHINGRIX) 50 MCG/0.5 ML, IM 2022-11-19 17:30:52 Leonor Ashford [facility] AUTHORIZATION TO RELEASE PHI TO [facility] 2022-07-18 05:01:00 Doctor Unassigned, [place] [facility] Delivery 2003-02-11 00:00:00 Cynthia via Medical Delivery 2000-02-12 00:00:00 Cynthia via Medical Tubal L[facility] En[facility]ters Start Date/Time End Date/Time Encounter Type Admission Type Attending [facility] Facility Care Department Encounter ID Source 2021-10-06 08:36:00 Outpatient Althea Grant STRUBÉN STLMLC [id number] [facility] 2021-08-25 08:32:06 Outpatient Althea Grant STRUBÉN STLMLC [id number] [facility] 2021-05-22 11:20:01 Outpatient Althea Grant STRUBÉN STLMLC [id number] [facility] 2021-03-08 12:21:04 Outpatient Althea Grant STRUBÉN STLMLC [id number] [facility] 2021-03-08 12:12:09 Outpatient Althea Grant STRUBÉN STLMLC [id number] [facility] 2021-03-08 12:07:01 Outpatient Althea rGant STRUBÉN STLMLC [id number] [facility] 2021-03-08 12:04:39 Outpatient Althea Grant STRUBÉN STLMLC [id number] [facility] 2021-03-08 11:54:42 Outpatient Althea Grant STRUBÉN STLMLC [id number] [facility] 2021-03-08 11:54:10 Outpatient Althea Grant STRUBÉN STLMLC [id number] [facility] 2021-03-08 11:28:46 Outpatient Althea Grant STRUBÉN STLMLC [id number] [facility] 2020-12-12 08:36:55 Outpatient LORNA DUQUE [facility] OPH [id number] [facility] 2004-02-20 00:00:00 Inpatient P DOCTOR UNASSIGNED, NO [facility] TOMASZ [id number] [facility] 2023-11-30 00:00:00 2023-12-03 07:40:22 Refill Cotta, Leonor [facility] MEDICAL OFFICE BUILDING 1.2.840.114 350.1.13.10 4.2.7.2.686 [id number] [facility] 2023-11-13 00:00:00 2023-11-13 00:00:00 JAIRO Houser: [address], [address], [place] [address] , Ph. [facility] - GC_GCBZW_[facility]* [id number] [facility] 2023-11-06 00:00:00 2023-11-06 00:00:00 JAIRO Houser: [address], [address], [place] [id number] , Ph. [facility] - GC_GCBZW_[facility]* [id number] [facility] 2023-10-28 00:00:00 2023-10-28 00:00:00 JAIRO Houser: [address], [address], [place] [address] , Ph. [facility] GC_GCBZW_[facility]* [id number] [facility] 2023-10-23 00:00:00 2023-10-23 14:17:03 Telephone Leonor Ashford [facility] GIAN?[facility] MEDICAL OFFICE BUILDING 1..840.114 350.1.13.10 4.2.7.2.686 [id number] [facility] 2023-10-23 00:00:00 2023-10-23 11:13:53 Telephone Leonor Ashford [facility] MED[facility] OFF[facility] BU[facility] 1.2.840.114 350.1.13.10 4.2.7.2.686 [id number] [facility] 2023-10-15 00:00:00 2023-10-16 16:08:11 Telephone Dejon Leonor [facility] GIAN?[facility] MEDICAL OFFICE BUILDING 1..840.114 350.1.13.10 4.2.7.2.686 [id number] [facility] 2023-09-25 00:00:00 2023-09-25 00:00:00 JAIRO Houser: [address], [address], [place] [id number] , Ph. [facility] - GC_GCBZW_[place]* [id number] [facility] 2023-09-03 00:00:00 2023-09-03 00:00:00 JAIRO Houser: [address], [address], [place] [id number] , Ph. [facility] - GC_GCBZW_[place]* [id number] [facility] 2023-04-06 00:00:00 2023-07-30 02:04:49 Mobile Device Encounter Shital Hameed [facility] 1.840.114 350.1.13.10 4.2.7.2.686 [id number] [facility] 2023-07-09 00:00:00 2023-07-09 13:30:02 Telephone DejonLeonor [facility] GIAN?MARIANARosanne [facility] MEDICAL OFFICE BUILDING 1..840.114 350.1.13.10 4.2.7.2.686 [id number] [facility] 2023-07-05 16:00:00 2023-07-05 16:25:20 Outpatient R LEONOR ASHFORD [facility] [id number] [facility] 2023-07-05 16:00:00 2023-07-05 16:25:20 Striker Out Visit Lab, Keshawn - Hemant Ashford [facility] GIAN?ARCADIO [facility] MEDICAL OFFICE BUILDING 1.2.840.114 350.1.13.10 4.2.7.2.686 [id number] [facility] 2023-07-05 15:30:00 2023-07-05 16:01:54 Office Visit Leonor Ashford [facility] GIAN?[facility]ADIO [facility] MEDICAL OFFICE BUILDING 1..840.114 350.1.13.10 4.2.7.2.686 [id number] [facility] 2023-06-09 00:00:00 2023-06-09 00:00:00 Refill Leonor Ashford [facility] GIAN?[facility]IO [facility] OFFICE BUILDING 1..840.114 350.1.13.10 4.2.7.2.686 [id number] [facility] 2023-05-27 13:18:08 2023-05-27 23:59:00 Outpatient R LEONOR ASHFORD [facility] [id number] [facility] 2023-05-27 13:18:08 2023-05-27 23:59:00 Hospital Encounter Leonor Ashford [facility] 1..840.114 350.1.13.10 4.2.7.2.686 [id number] [facility] 2023-05-10 15:30:00 2023-05-10 17:26:18 Outpatient R LEONOR ASHFORD [facility] [id number] [facility] 2023-05-10 16:00:00 2023-05-10 16:00:00 Striker Out Visit Lab, [facility]eshawn [facility] OFFICE BUILDING 1..840.114 350.1.13.10 4.2.7.2.686 [id number] [facility] 2023-05-10 15:30:00 2023-05-10 16:00:00 Office Visit Cotta[facility] MEDICAL OFFICE BUILDING 1..840.114 350.1.13.10 4.2.7.2.686 [id number] [facility] 2023-04-05 15:30:00 2023-04-05 16:36:33 Outpatient R LEONOR ASHFORD [facility] [id number] [facility] 2023-04-05 16:00:00 2023-04-05 16:09:40 Striker Out Visit Lab, Keshawn [facility]ADIO [facility] MEDICAL OFFICE BUILDING 1.840.114 350.1.13.10 4.2.7.2.686 [id number] [facility] 2023-04-05 15:30:00 2023-04-05 16:00:00 Office Visit Leonor Ashford [facility] GIAN?ARCADIO [facility] MEDICAL OFFICE BUILDING 1.840.114 350.1.13.10 4.2.7.2.686 [id number] [facility] 2023-04-05 00:00:00 2023-04-05 00:00:00 Telephone Leonor Ashford [facility]?ARCADIO [facility] MEDICAL OFFICE BUILDING 1..840.114 350.1.13.10 4.2.7.2.686 [id number] [facility] 2023-04-01 08:30:00 2023-04-01 08:30:00 Outpatient R LEONOR ASHFORD [facility] [id number] [facility] 2023-03-28 00:00:00 2023-03-28 00:00:00 [facility]IO [facility] MEDICAL OFFICE BUILDING 1..840.114 350.1.13.10 4.2.7.2.686 [id number] [facility] 2023-03-28 00:00:00 2023-03-28 00:00:00 Telephone Leonor Ashford [facility]ADIO [facility] MEDICAL OFFICE BUILDING 1.2.840.114 350.1.13.10 4.2.7.2.686 [id number] [facility] 2023-03-28 00:00:00 2023-03-28 00:00:00 Nurse Triage Leonor Ashford [facility]ADIO [facility] MEDICAL OFFICE BUILDING 1.2840.114 350.1.13.10 4.2.7.2.686 [id number] [facility] 2022-12-24 14:00:00 2022-12-24 14:00:00 Outpatient R LEONOR ASHFORD [facility] [id number] [facility] 2022-12-11 00:00:00 2022-12-11 00:00:00 Outpatient GC_GCBZW_Ka diyala_[facility] [id number] [facility] 2022-11-27 00:00:00 2022-11-27 00:00:00 Telephone Leonor Ashford [facility] GIAN?[facility]ADIO [facility] MEDICAL OFFICE BUILDING 1.2840.114 350.1.13.10 4.2.7.2.686 [id number] [facility] 2022-11-20 00:00:00 2022-11-20 00:00:00 Telephone Leonor Ashford [facility]IO [facility] MEDICAL OFFICE BUILDING 1.2.840.114 350.1.13.10 4.2.7.2.686 [id number] [facility] 2022-11-20 00:00:00 2022-11-20 00:00:00 Telephone Leonor Ashford [facility] MEDICAL OFFICE BUILDING 1.2.840.114 350.1.13.10 4.2.7.2.686 [id number] [facility] 2022-11-19 12:00:00 2022-11-19 13:16:11 Outpatient R LISALEONOR Castaneda [facility] [id number] [facility] 2022-11-19 12:00:00 2022-11-19 12:15:00 Striker Out Visit Lab, Ang - Hemant PantojaLeonor castaneda [facility]IO [facility] MEDICAL OFFICE BUILDING 1.2.840.114 350.1.13.10 4.2.7.2.686 [id number] [facility] 2022-11-19 11:30:00 2022-11-19 12:00:00 Office Visit DejonLeonor [facility]IO [facility] MEDICAL OFFICE BUILDING 1.2.840.114 350.1.13.10 4.2.7.2.686 [id number] [facility] 2022-09-20 00:00:00 2022-09-20 00:00:00 Telephone Angievladimir Samaria [facility] GIAN?[facility]IO [facility] MEDICAL OFFICE BUILDING 1..840.114 350.1.13.10 4.2.7.2.686 [id number] [facility] 2022-09-03 10:00:00 2022-09-03 10:00:00 Office Visit DejonLeonor [facility]IO [facility] MEDICAL OFFICE BUILDING 1.2.840.114 350.1.13.10 4.2.7.2.686 [id number] [facility] 2022-09-03 10:00:00 2022-09-03 09:54:13 Outpatient R DEJONJASONIE [facility] [id number] [facility] 2022-09-03 00:00:00 2022-09-03 00:00:00 Refill LisaLeonor castaneda [facility] GIAN?[facility]IO [facility] MEDICAL OFFICE BUILDING 1.2.840.114 350.1.13.10 4.2.7.2.686 [id number] [facility] 2022-08-28 11:00:00 2022-08-28 12:27:15 Office Visit Renita [facility]ly [facility]IO [facility] MEDICAL OFFICE BUILDING 1.2.840.114 350.1.13.10 4.2.7.2.686 [id number] [facility] 2022-08-28 11:00:00 2022-08-28 12:27:15 [facility] [id number] [facility] 2022-07-26 00:00:00 2022-07-26 00:00:00 Patient Secure Msg Doctor Unassigned, [place] [facility] MEDICAL OFFICE BUILDING 1.840.114 350.1.13.10 4.2.7.2.686 [id number] [facility] 2022-07-24 00:00:00 2022-07-24 00:00:00 Letter (Out) Clinic, [facility] Nephrology [facility] 1.840.114 350.1.13.10 4.2.7.2.686 [id number] [facility] 2022-07-23 07:45:00 2022-07-23 08:00:00 Striker Out Visit Lab, Leonor Avalos [facility] MEDICAL OFFICE BUILDING 1..840.114 350.1.13.10 4.2.7.2.686 [id number] [facility] 2022-07-23 07:45:00 2022-07-23 07:45:00 Outpatient R LEONOR ASHFORD [facility] [id number] [facility] 2022-07-23 00:00:00 2022-07-23 00:00:00 Patient Secure Msg Doctor Unassigned, [place] [facility] 1.2840.114 350.1.13.10 4.2.7.2.686 [id number] [facility] 2022-07-20 00:00:00 2022-07-20 00:00:00 Telephone Leonor Ashford [facility] MEDICAL OFFICE BUILDING 1.84.114 350.1.13.10 4.2.7.2.686 [id number] [facility] 2022-07-18 16:15:00 2022-07-18 16:45:23 Striker Out Visit Lab, Keshawn - Hemant Dejon [facility] MEDICAL OFFICE BUILDING 1.84.114 350.1.13.10 4.2.7.2.686 [id number] [facility] 2022-07-18 15:00:00 2022-07-18 16:22:36 Outpatient R LEONOR ASHFORD [facility] [id number] [facility] 2022-07-18 15:00:00 2022-07-18 16:22:36 Office Visit Dejon [facility] MEDICAL OFFICE BUILDING 1.84.114 350.1.13.10 4.2.7.2.686 [id number] [facility] 2022-07-18 00:00:00 2022-07-18 00:00:00 Orders Only Doctor Unassigned, [place] [facility] 1.2.114 350.1.13.10 4.2.7.2.686 [id number] [facility] 2021-08-29 00:00:00 2021-08-29 00:00:00 SUB ANNUAL [facility] WELLNESS VISIT STLMLC STLMLC [id number] [facility] 2021-08-29 00:00:00 2021-08-29 00:00:00 OFFICE VISIT EST PT LEVEL 3 STLMLC STLMLC [id number] [facility] 2021-04-18 00:00:00 2021-04-18 00:00:00 OFFICE VISIT ESTAB PT LEVEL 4 STLMLC STLMLC [id number] [facility] 2020-08-26 09:15:00 2020-08-26 09:15:00 Outpatient LORNA DUQUE [facility] [id number] [facility] 2020-02-08 00:00:00 2020-02-08 00:00:00 Outpatient STLMLC STLMLC [id number] [facility] 2019-12-25 00:00:00 2019-12-25 00:00:00 Outpatient STLMLC STLMLC [id number] [facility] 2019-11-25 00:00:00 2019-11-25 00:00:00 Outpatient STLMLC STLMLC [id number] [facility] 2019-11-24 00:00:00 2019-11-24 00:00:00 Outpatient STLMLC STLMLC [id number] [facility] 2019-11-12 00:00:00 2019-11-12 00:00:00 Outpatient STLMLC STLMLC [id number] [facility] 2019-08-04 11:39:00 2019-08-04 11:39:00 [facility] [id number] [facility] 2018-08-27 11:20:00 2018-08-27 11:20:00 [facility] [address] [facility] [id number] [facility] 2018-06-06 02:13:00 2018-06-06 02:13:00 [facility] [address] [facility] [id number] [facility] 2018-03-05 17:07:00 2018-03-05 17:07:00 [facility] [address] [facility] [id number] [facility] 2018-03-05 17:03:00 2018-03-05 17:03:00 [facility] [address] [facility] [place] [address] [facility] [id number] [facility] 2018-03-05 10:48:00 2018-03-05 10:48:00 [facility] [address] [facility] [place] [address] [facility] [id number] [facility] 2018-02-25 10:45:00 2018-02-25 10:45:00 [facility] [address] [facility] [place] [address] [facility] [id number] [facility] 2018-02-07 12:01:00 2018-02-07 12:01:00 [facility] [address] [facility] [place] [address] [facility] [id number] [facility] 2017-10-01 13:45:00 2017-10-01 13:45:00 [place] [facility] [address] [facility] [place] [address] [facility] [id number] [facility] 2017-09-26 11:12:00 2017-09-26 11:12:00 [facility] [address] [facility] [place] [address] [facility] [id number] [facility] 2017-09-04 11:15:00 2017-09-04 11:15:00 [facility] [address] [facility] [place] [address] [facility] [id number] [facility] [place] 2004-01-04 14:10:00 2004-01-06 16:32:00 Inpatient P ABHINAV CALERO MICHEL [facility] [id number] [facility] 2003-12-31 00:00:00 2003-12-31 23:59:00 Outpatient SANDRA LADD [facility] [id number] [facility] 2003-12-28 00:00:00 2003-12-28 23:59:00 Outpatient ABHINAV DORANTES MICHEL [facility] [id number] [facility] Results Test Description Test Time Test Comments Results Result Co mments Source [facility] 1+2 Ab+HIV1 p24 Ag [Presence] in Serum or Plasma by [id number] 00:00:00* Test Item Value Reference Range Interpretation Comme nts HIV Ag/Ab (test code = HIV Ag/Ab) NON-REACTIVE non-reactive HIV-1 P24 Ag (test code = HI V-1 P24 Ag) NON-REACTIVE non-reactive HIV 1+2 Ab (test code = HIV 1+2 Ab) NON-REACTIVE non-reactive [facility]agin Ab [Presence] in Serum by [id number] 00:00:00* Test Item Value Reference Range Interpretation Comme nts RPR (test code = RPR) NON-REACTIVE non-reactive [facility] disease [id number] 00:00:00* Test Item Value Reference Range Interpretation [...] M) 22.631 ppm 23.000-27.778 A [facility] Medicalurinalysis, [id number] 12:26:00* Test Item Value Reference Range Interpretation Comme nts Leukocytes (test code = Leukocytes) Negative Nitrite (test code = Nitrite) negative Urobilinogen (test code = Urobilinogen) Normal Protein (test code = Protein) 2+ pH (test code = pH) 6.0 Blood (test code = Blood) 1+ Specific [place] (test code = Specific [place]) 1.015 Ketone (test code = Ketone) Negative Bilirubin (test code = Bilirubin) Negative Glucose (test code = Glucose) Negative Appearance (test code = Appearance) Slightly Cloudy Color (test code = Color) Yellow [facility]atitis B virus surface Ag [Presence] in [id number] 00:00:00* Test Item Value Reference Range Interpretation Comme nts ethnicity: (test code = ethnicity:) OTHER race: (test code = race:) UNKNOWN hep. B surf. Ag (test code = hep. B surf. Ag) NON-REACTIVE non-reactive [facility] virus Ab [Presence] in [id number] 00:00:00* Test Item Value Reference Range Interpretation Comme nts ethnicity: (test code = ethnicity:) OTHER race: (test code = race:) UNKNOWN hep. C Ab. (test code = hep. C Ab.) NON-REACTIVE non-reactive [facility] W Specific [id number] 21:09:00* Test Item Value Reference Range Interpretation [...] 3267) Lab Interpretation (test cod e = 05937-8) [facility]normal [facility] Specific [id number] 21:09:00* Test Item Value Reference Range Interpretation [...] 3267) Lab Interpretation (test cod e = [id number]) Abnormal [facility] Notes Date/Time Note Provider Source 2023-12-02 09:53:20 Images from the original note were not included. Notes: 07/05/23 Last Refilled: [id number] - [place], [place] - [address] [place] [address] AT [facility] Recent Visits Date Type Provider Dept 07/05/23 [...] JAIRO Schaffer Last refill: 10/26/2023 Rx #: [id number] GLP-1 Receptor Agonists Ougejs4211/30/2023 08:23 AM Protocol Details Manual Review: Review last provider note for dose changes HBA1C in normal range and within 180 days Valid encounter within last 6 months To be filled at: [facility]/pharmacy #[id number] - [address] [facility] Bday 2023-11-12 09:44:47 Per provider, pt needs office for forms to be filled T [facility] Bday 2023-10-23 14:13:43 Images from the original note were not included. Tata Pedro [facility] 2023-10-23 10:49:03 [facility] gastrology calling to let clinic know the are re faxing [phone] Glenny Robledo [facility] 2023-10-16 16:06:47 Contacted office to inform we have not received form in provider box. Forms will be refaxed for provider to complete. [facility] 2023-10-15 10:53:51 Crystal with [facility] calling in checking status of General Clearance Request that was faxed over on 10/10/2023 at 10:12 AM. Please contact and advise. Caron Colindres [facility] 2023-07-09 13:42:03 Spoke to patient and relayed lab results and recommendations per JAIRO Schaffer. Patient voiced understanding with no questions or concerns at this time. She reports that she is not having S/S and That she is going out of town for a month. Greer Noble RN [facility] 2023-07-09 13:27:18 Is pt having urinary s/s like burning ? She does have a bacteria in the urine but ist common on not tx unless having s/s. We can try to tx the yeast and BV and see if things improve. [facility] 2023-07-05 16:00:00 Images from the original note were not included. Venipuncture collection performed by clean technique on the left anticubitus. Total of 1 attempts were made. Slight pressure and a bandage/dressing were applied to the site(s). The patient experienced no complications. The following specimens were processed according to instructions and sent to [facility] laboratories per lab order on today: LT BLUE SST 2 RED LAV PPT DK GREEN (LiHep) DK GREEN (SodH) WASHBURN DK BLUE (K2) DK BLUE (S) ACD Blood Culture NIPT/NTD Patient presented with specimen for drop-off and was identified by name. Collection information/ total volume were documented accordingly. The following specimens were sent to [facility] laboratories per lab order on today: 24 hour urine Random urine Stool Swab Other Culture and tvag Drop off by MA [facility] 2023-06-10 08:43:32 Notes: Please Review Last Refilled: semaglutide (OZEMPIC) 0.25 mg or 0.5 mg (2 mg/3 mL) PnIj 3 Pen 0 05/10/2023 -- No Sig: inject 0.25 mg under the skin weekly. Sent to pharmacy as: Ozempic 0.25 mg or 0.5 mg (2 mg/3 mL) subcutaneous pen injector (semaglutide) Class: eRX Route: Subcutaneous Order: [id number] Date/Time Signed: 05/10/2023 15:29 E-Prescribing Status: Receipt [...] Type Provider Dept 07/05/23 Appointment Leonor Ashford, [employer] [facility] Med Showing future appointments within next 150 days with a meds authorizing provider and meeting all other requirements Raquel Campbell [facility] 2023-05-10 16:00:00 Images from the original note were not included. Venipuncture collection performed by clean technique on the right anticubitus. Total of 1 attempts were made. Slight pressure and a bandage/dressing were applied to the site(s). The patient experienced no complications. The following specimens were processed according to instructions and sent to [facility] laboratories per lab order on 05/10/2023: LT BLUE SST RED LAV 1 PPT DK GREEN (LiHep) DK GREEN (SodH) WASHBURN DK BLUE (K2) DK BLUE (S) ACD Blood Culture NIPT/NTD [facility] 2023-04-08 16:30:36 Patient is returning a call. 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 Dr. 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 Venipuncture collection performed by clean technique on the right anticubitus. Total of 1 attempts were made. Slight pressure and a bandage/dressing were applied to the site(s). The patient experienced no complications. The following specimens were processed according to instructions and sent to [facility] laboratories per lab order on 04/05/2023: LT BLUE SST 2 RED LAV 2 PPT DK GREEN (LiHep) DK GREEN (SodH) WASHBURN DK BLUE (K2) DK BLUE (S) ACD Blood Culture NIPT/NTD Patient has been identified by and name and was provided with cup, antiseptic towelette, and clean catch instructions. 1 urine specimen(s) sent. 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 Patient needs refill of citalopram 10 mg tablet. Patient takes medicine for depression. I'm ordering her more medicine and patient states she needs meds CRISTELA or she might do something. Are any nurses available to talk to her. she would like to talk to a nurse. [facility] 2023-03-28 12:04:00 Reason for Disposition Sometimes has thoughts of suicide Protocols used: [id number] I spoke to both the patient and [...] requesting an appointment on Saturday03/29/2023. Kiana Staley [facility] 2023-03-28 12:04:00 PSS please reach out to patient to see if they can get a sooner appt.. Currently scheduled to come in on 04/01/23. Thank you LES Noble RN [facility] 2023-03-28 12:04:00 When I saw pt in 11/2022 she has stopped Citalopram r/t SE of nausea. I do recommend she go to the ER if there is concerns about HI/SI. [facility] 2023-03-28 11:56:40 Tyra Yo is a 52 year old female is requesting a refill of citalopram 10 mg tablet CRISTELA. Patient is completely out. [facility] 2022-09-20 15:59:54 Formatting of this n ote might be different from the original. Submitted order for [employer] system to [employer] through [employer]. Leandra Henao LVN [facility] 2022-08-28 11:00:00 Addended by: SAMARIA RUTHERFORD on: 09/03/2022 06:12 PM Modules accepted: Orders [facility] 2022-08-28 11:00:00 Addended by: SAMARIA RUTHERFORD on: 09/20/2022 02:53 PM Modules accepted: Orders [facility]
[2023-12-16] MEDS ORDERED: NA CHLORIDE 0.9% 1,000 ML ONE ×2 (09:14→10:45)
[2023-12-16] MEDS ORDERED: ONDANSETRON 4 MG/2 ML VIAL ONE (09:14)
[2023-12-16] MEDS ORDERED: MORPHINE 4 MG/ML SYR ONE (09:14)
[2023-12-16 09:46] LABS: Absolute Eosinophils 0.3 K/uL (0-0.5); Absolute Lymphocytes (CBC) 1.8 K/uL (0.7-4.9); Absolute Monocytes 0.4 K/uL (0.1-1.3); Absolute Neutrophil 4.5 K/uL (1.8-8.0); Basophils % 0.6 % (0-1.3); Eosinophils % 4.1 % (0-4.4); Hematocrit 29.8 % (36.0-45.0); Hemoglobin 10.1 g/dL (12.0-15.0); Lymphocytes % 25.9 % (15.3-44.8); MCH 28.1 pg (27.0-35.0); MCHC 33.8 g/dL (32.0-36.0); MCV 83.1 fL (80-100); MPV 8.3 fL (7.6-11.3); Monocytes % 5.9 % (3.3-12.3); Neutrophils % 63.5 % (41.7-73.7); Nucleated Red Blood Cells % 0.1 % (0-0); Platelets 255 thou/uL (152-406); RBC Red Blood Cell Count 3.59 M/uL (3.86-4.86); Red Cell Distribution Width 13.8 % (12.1-15.2)
[2023-12-16 09:51] LABS: Specific Gravity 1.014 (1.005-1.030); Sqamous Epithelial <5 /HPF (None Seen); Urine Bacteria >50 /HPF (<20); Urine Bilirubin NEGATIVE (Negative); Urine Blood 3+ (OVER) (Negative); Urine Clarity Extremely Turbid (Clear); Urine Color Yellow (Yellow); Urine Culture Reflex Order REFLEXED; Urine Glucose 4+ (Over) (Negative); Urine Ketones NEGATIVE (Negative); Urine Microscopic Reflex YN ORDER UMIC; Urine Mucus Slight /HPF (None Seen); Urine Nitrite NEGATIVE (Negative); Urine Protein 2+ (Negative); Urine RBC >50 /HPF (None Seen); Urine Urobilinogen Normal (Normal); Urine WBC >50 /HPF (<5); Urine WBC Clump Rare /HPF (None Seen); Urine pH 5.5 (5.0-7.0)
[2023-12-16 10:05] LABS: Albumin 3.1 g/dL (3.4-5.0); Albumin/Globulin Ratio 0.7 (1.1-1.8); Anion Gap 9.4 mEq/L (5.0-15.0); Bilirubin Total 0.5 mg/dL (0.2-1.0); Globulin 4.2 g/dL (2.3-3.5); Potassium 4.4 mEq/L (3.5-5.1); Protein, Total 7.3 g/dL (6.4-8.2)
[2023-12-16] MEDS ORDERED: INSULIN REGULAR (HUMAN) 100 UNIT/ML ONE (10:45)
--- NOTE | 2023-12-16 11:15 | RAD REPORT ---
EXAMINATION: CT Abdomen Pelvis Wo Contrast CLINICAL INDICATION: Female, 53 years old. back pain, abd pain TECHNIQUE: CT abdomen and pelvis was performed, without IV contrast, as per department protocol. Axia l, sagittal and coronal reconstructions were obtained. One or more of the following dose reduction techniques were used: Automated exposure control, adjustment of the mA and kV according to the patien t size, and iterative reconstruction. Unless otherwise specified, incidental findings do not require dedicated imaging follow-up. COMPARISON: 03/08/2023 FINDINGS: The lack of intravenous contrast limits the sensitivity of this exam for evaluation of solid visceral organs, vascular structures, and retroperitoneum. LOWER CHEST: The visualized lung bases are clear. LIVER: Normal in size and contour. No focal lesion. BILIARY SYSTEM: Status post cholecystectomy. SPLEEN: Normal size. No focal lesion. PANCREAS: No mass, ductal dilation, or stephanie-pancreatic fluid. ADRENALS: Normal; no mass. KIDNEYS AND URETERS: Normal size. Horseshoe kidney configuration. Stable 2-3 mm left interpolar focus of radiodensity, may represent a nonobstructing calculus. No hydronephrosis. 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 GASTROINTESTINAL TRACT: No evidence of bowel obstruction, significant free fluid, free air or abscess . APPENDIX: Normal appendix. LYMPH NODES: No lymphadenopathy. MUSCULOSKELETAL: No acute or suspicious osseous abnormality. ADDITIONAL FINDINGS: None. 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 Other stable findings as above.
--- NOTE | 2023-12-16 11:36 | ER ---
Nurse's Notes [facility] Name: Tyra Stewart Age: 53 yrs Sex: Female : 1970 Arrival Date: 12/16/2023 Time: 08:54 Bed 4 Private MD: Diagnosis: UTI/ Urinary tract infection, site not specified-recurrent;Coccyx contusion;Hordeolum externum right lower eyelid Presentation: 12/15 09:10 Chief complaint: Patient states: urinary frequency and pink tinged toilet paper after ss voiding x 1 week. HX of frequent UTIs x 1 year. Coronavirus screen: Client denies travel out of the [place] in the last 14 days. Ebola Screen: Patient denies exposure to infectious person. Patient denies travel to an Ebola-affected area in the 21 days before illness onset. Initial Sepsis Screen: Does the patient meet any 2 criteria? No. Patient's initial sepsis screen is negative. Does the patient have a suspected source of infection? No. Patient's initial sepsis screen is negative. Risk Assessment: Do you want to hurt yourself or someone else? Patient reports no desire to harm self or others. Onset of symptoms was November 2023. 09:10 Method Of Arrival: Ambulatory ss 09:10 Acuity: TASHI 3 ss Historical: - Allergies: 09:11 Ciprofloxacin; ss 09:11 piperacillin; ss 09:11 Rocephin; ss 09:11 tazobactam; ss 09:11 Zosyn; ss - PMHx: 09:11 Anxiety; Diabetes - IDDM; Hypertension; kidney failure; legally blind; PE in right lung;ss - PSHx: 09:11 section; Cholecystectomy; ss - Immunization history:: Client reports receiving the 2nd dose of the Covid vaccine. - Infectious Disease History:: Denies. - Social history:: Smoking status: Patient denies any tobacco usage or history of. Screenin:36 [facility] ED Fall Risk Assessment (Adult) History of falling in the last 3 months, ko1 including since admission No falls in past 3 months (0 pts) Confusion or Disorientation No (0 pts) Intoxicated or Sedated No (0 pts) Impaired Gait No (0 pts) Mobility Assist Device Used No (0 pt) Altered Elimination No (0 pt) Score/Fall Risk Level 0 - 2 = Low Risk Oriented to surroundings, Maintained a safe environment, Educated pt \T\ family on fall prevention, incl call for assistance when getting out of bed, Assessed \T\ reinforced patient's understanding of fall precautions, Hourly rounding (assess needs \T\ fall precautionary measures) done. Abuse screen: Denies threats or abuse. Denies injuries from another. Nutritional screening: No deficits noted. Tuberculosis screening: No symptoms or risk factors identified. Assessment: 09:20 General: Appears uncomfortable, Behavior is calm, cooperative, appropriate for age. ko1 Pain: Complains of pain in sacrum. Neuro: No deficits noted. Cardiovascular: No deficits noted. Respiratory: No deficits noted. GI: No deficits noted. : No deficits noted. EENT: No deficits noted. Derm: No deficits noted. Musculoskeletal: Reports pain in sacrum. Vital Signs: 09:10 BP 164 / 94; Pulse 102; Resp 16; Temp 98(O); Pulse Ox 100% on R/A; ss 09:38 BP 144 / 76; Pulse 98; Resp 16; Pulse Ox 99% ; ko1 12:34 BP 138 / 72; Pulse 88; Resp 16; Pulse Ox 99% ; ko1 ED Course: 08:57 Patient arrived in ED. ra3 08:58 Sherry Melendez PA-C is PHCP. sb4 08:58 Jeovanny Granado MD is Attending Physician. sb4 09:11 Lyssa Alston, ROLAND is Primary Nurse. ko1 09:11 Triage completed. ss 09:11 Arm band placed on right wrist. ss 09:30 Initial lab(s) drawn, by me, sent to lab. Urine collected: clean catch specimen, clear. ko1 Inserted saline lock: 20 gauge in right antecubital area, using aseptic technique. Blood collected. Flushed with 10 mL NS. 09:35 CBC with Diff Sent. ko1 09:35 CMP Sent. ko1 09:35 Urinalysis w/ reflexes Sent. ko1 09:36 Patient has correct armband on for positive identification. Allergy band placed. Bed in ko1 low position. Call light in reach. Side rails up X2. Provided Education on: labs, meds. Pulse ox on. NIBP on. Door closed. Noise minimized. Lights dimmed. Warm blanket given. Pillow given. Assisted to bathroom. 09:57 Urine Culture Sent. ko1 10:00 Urine Culture Sent. ko1 10:23 CT Abd/Pelvis - Without Contrast In Process Unspecified. EDMS 11:34 Inez Alvarado MD is Referral Physician. sb4 12:34 No provider procedures requiring assistance completed. IV discontinued, intact, ko1 bleeding controlled, No redness/swelling at site. Pressure dressing applied. Administered Medications: 09:25 Drug: NS 0.9% IV 1000 ml IV at 1 bolus Per protocol; to be given as a bolus over 60 ko1 minutes Route: IV; Rate: 1 bolus; Site: right antecubital; 10:42 Follow up: Response: No adverse reaction; IV Status: Completed infusion; IV Intake: ko1 1000ml 09:26 Drug: Ondansetron IVP 4 mg IVP once; over 2 minutes Route: IVP; Site: right antecubital;ko1 09:41 Follow up: Response: No adverse reaction ko1 09:30 Drug: morphine IVP or IV 4 mg IVP once over 4 mins Route: IVP; Infused Over: 4 mins; ko1 Site: right antecubital; 09:45 Follow up: Response: No adverse reaction ko1 10:47 Drug: NS 0.9% IV 1000 ml IV at 1000 ml once; to be given as a bolus over 60 minutes ko1 Route: IV; Rate: 1000 ml; Site: right antecubital; 12:17 Follow up: Response: No adverse reaction; IV Status: Completed infusion; IV Intake: ko1 1000ml 10:48 Drug: Insulin Regular Human IVP 10 units IVP once {Co-Signature: aa5 (Prisca Warren ko1 RN).} Route: IVP; Site: right antecubital; 11:03 Follow up: Response: No adverse reaction ko1 12:27 Drug: Amoxicillin-Clavulanate PO 875 mg PO once Route: PO; ko1 12:37 Follow up: Response: Medication administered at discharge. ko1 Medication: 09:38 VIS not applicable for this client. ko1 Intake: 10:42 IV: 1000ml; Total: 1000ml. ko1 12:17 IV: 1000ml; Total: 2000ml. ko1 Outcome: 11:36 Discharge ordered by . sb4 12:34 Discharged to home ambulatory, with family, ko1 12:34 Condition: stable 12:34 Discharge instructions given to patient, family, Instructed on discharge instructions, follow up and referral plans. medication usage, Demonstrated understanding of instructions, follow-up care, medications, Prescriptions given X 2, 12:37 Patient left the ED. ko1 Signatures: Dispatcher [employer] EDMS Jamila Del Rosario RN RN ss Lyssa Alston RN RN ko1 Sherry Melendez PA-C PA-C sb4 Cady Marcano ra3 Prisca Warren RN aa5
--- NOTE | 2023-12-16 11:36 | EDPHYS ---
Physician Documentation [facility] Name: Tyra Stewart Age: 53 yrs Sex: Female : 1970 Arrival Date: 12/16/2023 Time: 08:54 Bed 4 Private MD: ED Physician Jeovanny Granado HPI: 12/15 09:09 This 53 yrs old Female presents to ER via Unassigned with complaints of sb4 Urinary Problem. 09:09 Patient reports recurrent UTIs over this past year. States that for the past week or so sb4 she has been experiencing urinary frequency, bloating, and fatigue. Additionally, she states that a little over a week ago she fell and hurt her tailbone. She was seen here and had negative x-rays but states that pain has persisted and she is concerned that her symptoms are related. She denies any flank pain, nausea, vomiting, fever. She does report a history of CKD and she does see urogynecology for urinary incontinence and pelvic floor PT. Historical: - Allergies: 09:11 Ciprofloxacin; ss 09:11 piperacillin; ss 09:11 Rocephin; ss 09:11 tazobactam; ss 09:11 Zosyn; ss - PMHx: 09:11 Anxiety; Diabetes - IDDM; Hypertension; kidney failure; legally blind; PE in right lung;ss - PSHx: 09:11 section; Cholecystectomy; ss - Immunization history:: Client reports receiving the 2nd dose of the Covid vaccine. - Infectious Disease History:: Denies. - Social history:: Smoking status: Patient denies any tobacco usage or history of. ROS: 09:09 Neuro: Negative for headache, weakness, numbness, tingling, and seizure, sb4 09:09 Constitutional: Positive for fatigue, malaise, 09:09 Abdomen/GI: Positive for bloating, 09:09 Back: Positive for injury or acute deformity, pain at rest, pain with movement, of the sacrum, 09:09 : Positive for urinary symptoms, urinary frequency, Exam: 09:09 Head/Face: Normocephalic, atraumatic. ENT: Mucous membranes moist. Cardiovascular: sb4 Regular rate and rhythm with a normal S1 and S2. Respiratory: No increased work of breathing, no retractions or nasal flaring. Abdomen/GI: Soft, non-tender, no distension. Skin: Warm, dry with normal turgor. Normal color with no rashes, no lesions, and no evidence of cellulitis. 09:09 Constitutional: The patient appears alert, awake, uncomfortable, 09:09 Back: pain, that is moderate, of the sacrum, CVA tenderness, is absent, vertebral tenderness, is not appreciated, Vital Signs: 09:10 BP 164 / 94; Pulse 102; Resp 16; Temp 98(O); Pulse Ox 100% on R/A; ss 09:38 BP 144 / 76; Pulse 98; Resp 16; Pulse Ox 99% ; ko1 12:34 BP 138 / 72; Pulse 88; Resp 16; Pulse Ox 99% ; ko1 MDM: 08:59 Medical Screening Exam initiated sb4 09:25 External Records Reviewed: Outpatient labs: urine cultures from August 2023 and October grew ecoli with resistance to bactrim, gentamycin, and tobramycin. Care significantly affected by the following chronic conditions: Diabetes, Hypertension, Chronic Kidney Disease. 11:34 Data reviewed: vital signs, nurses notes, lab test result(s), radiologic studies, and sb4 as a result, I will discharge patient. Counseling: I had a detailed discussion with the patient and/or guardian regarding the historical points, exam findings, and any diagnostic results supporting the discharge/admit diagnosis, lab results, radiology results, the need for outpatient follow up, a urologist, to return to the emergency department if symptoms worsen or persist or if there are any questions or concerns that arise at home. 12/15 09:07 Order name: CBC with Diff; Complete Time: 09:48 sb4 12/15 09:07 Order name: CMP; Complete Time: 10:08 sb4 12/15 09:07 Order name: Urinalysis w/ reflexes; Complete Time: 09:55 sb4 12/15 09:57 Order name: Urine Culture EDTX 12/15 12:36 Order name: Glucose, Ancillary Testing; Complete Time: 12:36 EDTX 12/15 10:08 Order name: CT Abd/Pelvis - Without Contrast; Complete Time: 11:17 sb4 12/15 09:07 Order name: IV Saline Lock; Complete Time: 09:36 sb4 12/15 09:07 Order name: Labs collected and sent; Complete Time: 09:36 sb4 Administered Medications: 09:25 Drug: NS 0.9% IV 1000 ml IV at 1 bolus Per protocol; to be given as a bolus over 60 ko1 minutes Route: IV; Rate: 1 bolus; Site: right antecubital; 10:42 Follow up: Response: No adverse reaction; IV Status: Completed infusion; IV Intake: ko1 1000ml 09:26 Drug: Ondansetron IVP 4 mg IVP once; over 2 minutes Route: IVP; Site: right antecubital;ko1 09:41 Follow up: Response: No adverse reaction ko1 09:30 Drug: morphine IVP or IV 4 mg IVP once over 4 mins Route: IVP; Infused Over: 4 mins; ko1 Site: right antecubital; 09:45 Follow up: Response: No adverse reaction ko1 10:47 Drug: NS 0.9% IV 1000 ml IV at 1000 ml once; to be given as a bolus over 60 minutes ko1 Route: IV; Rate: 1000 ml; Site: right antecubital; 12:17 Follow up: Response: No adverse reaction; IV Status: Completed infusion; IV Intake: ko1 1000ml 10:48 Drug: Insulin Regular Human IVP 10 units IVP once {Co-Signature: aa5 (Prisca Warren ko1 RN).} Route: IVP; Site: right antecubital; 11:03 Follow up: Response: No adverse reaction ko1 12:27 Drug: Amoxicillin-Clavulanate PO 875 mg PO once Route: PO; ko1 12:37 Follow up: Response: Medication administered at discharge. ko1 Disposition: 17:20 Co-signature as Attending Physician, Jeovanny Granado MD I reviewed the patient's care rn provided by the Advanced Practice Provider and agree with the diagnosis and treatment plan. Disposition Summary: 12/16/23 11:36 Discharge Ordered Notes: Location: Home sb4 Problem: new sb4 Symptoms: have improved sb4 Condition: Stable sb4 Diagnosis - UTI/ Urinary tract infection, site not specified - recurrent sb4 - Coccyx contusion sb4 - Hordeolum externum right lower eyelid sb4 Followup: sb4 - With: Inez Alvarado MD - When: 10 - 14 days - Reason: Further diagnostic work-up, Recheck today's complaints, Re-evaluation by your physician Discharge Instructions: - Discharge Summary Sheet sb4 - Stye sb4 - Urinary Tract Infection, Adult, [id number] sb4 Forms: - Antibiotic Education sb4 - Prescription Opioid Use sb4 - Patient Portal Instructions sb4 - Leadership Thank You Letter sb4 Prescriptions: - Augmentin 875-125 mg Oral Tablet - take 1 tablet ORAL route every 12 hours for 10 days; 20 tablet; Refills: 0, sb4 Product Selection Permitted - Tramadol 50 mg Oral Tablet - take 1 tablet ORAL route every 8 hours as needed; 12 tablet; Refills: 0, sb4 Product Selection Permitted Signatures: Dispatcher [employer] EDMS Jeovanny Granado MD MD rn Blanchard, Shelby, RN RN Lyssa Aburto RN RN ko1 Sherry Melendez PA-C PA-C sb4 Prisca Warren RN aa5 Corrections: (The following items were deleted from the chart) 10:22 09:07 Abdomen Pelvis W [id number].[id number] ordered. EDMS EDMS
[2023-12-16] MEDS ORDERED: AMOX/K CLAV 875 MG TAB ONE (12:22)
[2023-12-16 12:58] VITALS: TEMP 98
[2023-12-16 12:59] VITALS: O2SAT 99
[2023-12-16 13:00] VITALS: BP 138/72
== END 2023-12-16 12:37 | disposition home or self-care (01) ==
LOC: ER 08:54
DX: N39.0 Urinary tract infection, site not specified (principal); S30.0XXA Contusion of lower back and pelvis, initial encounter; H00.012 Hordeolum externum right lower eyelid; E11.9 Type 2 diabetes mellitus without complications; I10 Essential (primary) hypertension
CPT/HCPCS: 87088; 85025; 81001; 87086; 36415; 82947; 80053; 74176; J2405; J7030 ×2; 87077; 87186; 96361; 96374; 96375; 99284

== ENCOUNTER 2024-02-19 15:12 | Emergency (ER) | payer BC, OTHER ==
--- OUTSIDE RECORDS SUMMARY | 2024-02-19 15:16 | XMS REPORT | Continuity of Care Document ---
Author Name Unknown Address [address] [facility] [address] [place] [address] [facility] thconnect Address [address] [facility] [address] [place] [address] Care Team Providers Care Director Strategy Name Role Phone Leonor Romeo Primary Care Physician [phone] Althea Grant Attending Clinician Unavailable LORNA BOLIVAR Attending Clinician Unavailab le DOCTOR UNASSIGNED, NO NAME Attending Clinician [facility] LEONOR ASHFORD Attending Clinician Unavailable Leonor Romeo Attending Clinician [phone] Lab, Ang - Db Attending Clinician Unavailable Shital Hameed MD Attending Clinician Leonor Romeo Attending Clinician [phone] Lab, Ang - Db Attending Clinician Unavailable [email or web address]_S Attending Clinician Unavaila SAMARIA Corrigan Attending Clinician Unavailable Samaria Rutherford Attending Clinician [phone] Doctor Unassigned, [place] Attending Clinician U [facility] Nephrology Attending Clinician ABHINAV CALERO Attending Clinician ABHINAV Corrales Attending Clinician SANDRA Reyes Attending Clinician LORNA Jimenez Admitting Clinician UnavailRICO Alvarez Admitting Clinician LEONOR Astudillo Admitting Clinician Unavailable [email or web address] Admitting Clinician LONG Mahan Admitting Clinician Unavailable SANDRA REECE Admitting Clinician ABHINAV Osorio Admitting Clinician Michael crystal Payers Payer Name Policy Type Policy Number Effective Date Expirati on Date Source MEDICARE PART A \T\ B [id number] 2014 00:00:00 [employer] [place] [id number] 2021 00:00:00 Problems Condition Name Condition Details Condition Category Status Onset Date Resolution Date Last Treatment Date Treating Clinician Comments Source Non compliance w medication regimen Non compliance w medication regimen Disease Active 2023-02 2-20 00:00: 00 [facility] Nocturnal enuresis Nocturnal Enuresis Problem Active 9-16 [...] Medical Bacterial vaginosis Bacterial Vaginosis Problem Active - 00:00: 00 [facility] Depressive disorder Depressive Disorder Problem Active - 00:00: 00 [facility] Neuropathy Neuropathy Problem [...] Acute vaginitis Disease Active 07-04 00:00: 00 [facility] Dysuria Dysuria Disease Active 07-04 00:00: 00 [facility] Arthralgia of both hands Arthralgia of both hands Disease Active 2022-02 0 00:00: 00 [facility] Need for hepatitis C screening test Need for hepatitis C screening test Disease Active 2022-02 009 00:00: 00 [facility] Chronic kidney disease Chronic kidney disease Disease Active 08-28 00:00: 00 [facility] Depression Depression Disease Active 08-28 00:00: 00 [facility] Serous retinal detachment , unspecifie d eye Serous retinal detachment , unspecifie d eye Disease Active 08-28 00:00: 00 Overview: Formattin g of this note might be different from the original. RIGHT eye [facility] Neuropathy Neuropathy Disease Active 08-28 00:00: 00 [facility] HTN (hypertens ion) HTN (hypertens ion) Disease Active 07-18 00:00: 00 [facility] Diabetes Diabetes Disease Active 6 00:00: 00 [facility] Screening for colorectal cancer Screening for colorectal cancer Disease Active 6 00:00: 00 [facility] Essential hypertensi on Essential hypertensi on Disease Active 07-18 00:00: 00 [facility] Type 2 diabetes mellitus with chronic kidney disease, without long-term current use of insulin, unspecifie d CKD stage Type 2 diabetes mellitus with chronic kidney disease, without long-term current use of insulin, unspecifie d CKD stage Disease Active 07-18 00:00: 00 [facility] Diarrhea, unspecifie d type Diarrhea, unspecifie d type Disease Active 07-18 00:00: 00 [facility] Anxiety and depression Anxiety and depression Disease Active 07-18 00:00: 00 [facility] Menopause present Menopause Present Problem Active 09-05 00:00: 00 [facility] Anemia due to chronic blood loss Anemia Due to Chronic Blood Loss Problem Active 08-27 00:00: 00 [facility] Excessive menstruati on with irregular cycle Excessive Menstruati on with Irregular Cycle Problem Active 08-12 00:00: 00 [facility] Secondary dysmenorrh ea [...] Medical Trigger finger Trigger finger Problem Active [facility] 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 Problem Active [facility] Legal blindness Legal blindness Problem Active [facility] Anemia Anemia Problem Active [facility] Vitamin D deficiency Vitamin D deficiency Problem Active [facility] Diabetes mellitus without complicati on Diabetes Problem Active [facility] Hyperlipid emia Hyperlipid emia Problem Active [facility] Premenopau braeden menorrhagi a Excessive bleeding in premenopau braeden period Problem Active [facility] Microalbum inuria Microalbum inuria Problem Active [facility] Chronic fatigue syndrome Chronic fatigue Problem Active [facility] [id number] Moderate episode of recurrent major depressive disorder Problem Active [facility] Chronic kidney disease stage 3 +5th digit eff 11/12/19*Ch ronic kidney disease, stage 3 Problem Active [facility] Diabetic polyneurop athy Secondary diabetes with peripheral neuropathy Problem Active [facility] [id number] 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, unspecifie d proliferat jewell retinopath y type Problem Active [facility] Allergies, Adverse Reactions, Alerts Allergy Name Allergy Type Status Severity Reaction(s) Onset Date Inactive Date Treating Clinician Comments Source NO KNOWN ALLERGIE S Drug Class Active [facility] Social History Social Habit Start Date Stop Date Quantity Comments Source History of Tobacco Use [facility] Gender identity [facility] Sexual orientation [facility] History of Social function 2023-07-05 00:00:00 2023-07-05 00:00:00 [facility] Tobacco use and exposure 2022-07-18 00:00:00 2022-07-18 00:00:00 Smokeless tobacco non-user [facility] Sex assigned at 1970 00:00:00 1970 00:00:00 [facility] Smoking Status Start Date Stop Date Source Never smoked tobacco [facility] Medications Ordered Medication Name Filled Medication Name Start Date Stop Date Current Medication? Ordering Clinician Indication Dosage Frequency Signature (SIG) Comments Components Source citalopram 10 mg tablet 2023-02 00:00: 00 Yes [id number] 10mg Take 1 tablet by mouth at bedtime. [facility] insulin glargine U-300 conc (TOUJEO MAX U-300 SOLOSTAR) 300 unit/mL (3 mL) InPn 2023-02 00:00: 00 Yes [id number] 30U inject 30 Units under the skin at bedtime. [facility] lisinopriL 10 mg tablet 2023-02 00:00: 00 Yes [id number] 10mg Take 1 tablet by mouth in the morning. [facility] semaglutide (OZEMPIC) 0.25 mg or 0.5 mg (2 mg/3 mL) [facility] 2023-02 00:00: 00 Yes [id number] .25mg inject 0.25 mg under the skin weekly. [facility] gabapentin 300 mg capsule 2023-02 00:00: 00 Yes [id number] 300mg Take 1 capsule by mouth in the morning. [facility] semaglutide (OZEMPIC) 0.25 mg or 0.5 mg (2 mg/3 mL) [facility] 2023-02 00:00: 00 01-30 00:00 :00 No [id number] .25mg INJECT 0.25 MG UNDER THE SKIN WEEKLY. [facility] fluconazole (DIFLUCAN) 150 mg tablet 07-08 00:00: 00 Yes [id number] Take 1 tab today and repeat 1 in 72 hrs [facility] metroNIDAZO LE (FLAGYL) 500 mg tablet 07-08 00:00: 00 07-16 04:59 :00 No [id number] 500mg Take 1 tablet by mouth every 12 (twelve) hours for 7 days. [facility] cephALEXin 500 mg capsule 07-04 00:00: 00 Yes [id number] 500mg Take 1 capsule by mouth in the morning and 1 capsule in the evening. [facility] citalopram 10 mg tablet 24 00:00: 00 01-30 00:00 :00 No [id number] 10mg Take 1 tablet by mouth at bedtime. [facility] gabapentin 300 mg capsule 524 00:00: 00 01-30 00:00 :00 No [id number] 300mg Take 1 capsule by mouth in the morning. [facility] insulin glargine U-300 conc (TOUJEO MAX U-300 SOLOSTAR) 300 unit/mL (3 mL) In 07-04 00:00: 00 01-30 00:00 :00 No [id number] 20U inject 20 Units under the skin at bedtime. [facility] semaglutide (OZEMPIC) 0.25 mg or 0.5 mg (2 mg/3 mL) [facility] 24 00:00: 00 12-02 00:00 :00 No [id number] .25mg inject 0.25 mg under the skin weekly. [facility] semaglutide (OZEMPIC) 0.25 mg or 0.5 mg (2 mg/3 mL) [facility] 30 00:00: 00 07-04 00:00 :00 No [id number] .25mg INJECT 0.25 MG UNDER THE SKIN WEEKLY. [facility] citalopram 10 mg tablet 05-09 00:00: 00 07-04 00:00 :00 No [id number] 10mg Take 1 tablet by mouth at bedtime. [facility] gabapentin 300 mg capsule 0 3-29 00:00: 00 07-04 00:00 :00 No [id number] 300mg Take 1 capsule by mouth in the morning. [facility] semaglutide (OZEMPIC) 0.25 mg or 0.5 mg (2 mg/3 mL) Ij 0 3-29 00:00: 00 06-10 00:00 :00 No [id number] .25mg inject 0.25 mg under the skin weekly. [facility] lisinopriL 10 mg tablet 04-05 00:00: 00 01-30 00:00 :00 No [id number] 10mg Take 1 tablet by mouth in the morning. [facility] insulin glargine U-300 conc (TOUJEO MAX U-300 SOLOSTAR) 300 unit/mL (3 mL) InPn 04-05 00:00: 00 07-04 00:00 :00 No [id number] 20U inject 20 Units under the skin at bedtime. [facility] citalopram 10 mg tablet 04-05 00:00: 00 05-09 00:00 :00 No [id number] 10mg Take 1 tablet by mouth at bedtime. [facility] citalopram 10 mg tablet 03-28 00:00: 00 04-05 00:00 :00 No [id number] 10mg Take 1 tablet by mouth at bedtime. [facility] acetaminoph en (TYLENOL ARTHRITIS PAIN) 650 mg CR tablet 2022-02 0 00:00: 00 Yes [id number] 650mg Take 1 tablet by mouth every 8 (eight) hours as needed for Pain. [facility] lisinopriL 10 mg tablet 2022-02 0- 00:00: 00 04-05 00:00 :00 No [id number] 10mg Take 1 tablet by mouth in the morning. [facility] ibuprofen 600 mg tablet 2022-02 0-09 00:00: 00 11-19 00:00 :00 No [id number] 600mg Take 1 tablet by mouth every 6 (six) hours as needed for Temp > 38.5 C for up to 14 days. [facility] flash glucose sensor (FREESTYLE SULEIMAN 2 SENSOR) Kit 8-10 00:00: 00 Yes [id number] 1{each} inject 1 Each under the skin every 14 (fourteen) days. Use as directed to check blood sugar 3x a day for diagnosis E11.65 [facility] Blood-Gluco se Sensor (FREESTYLE SULEIMAN 3 SENSOR) Tricia 09-03 00:00: 00 Yes [id number] 1{each} inject 1 Each under the skin every 14 (fourteen) days. Use as directed to check blood sugar 3x a day for diagnosis E11.65 [facility] semaglutide (OZEMPIC) 0.25 mg or 0.5 mg (2 mg/3 mL) PnIj 09-03 00:00: 00 05-09 00:00 :00 No [id number] Start 0.25 mg weekly dose for 4 weeks and then progress to 0.5mg weekly injection. [facility] gabapentin 300 mg capsule 08-28 00:00: 00 05-09 00:00 :00 No [id number] 300mg Take 1 capsule by mouth in the morning. [facility] Blood-Gluco se Sensor (FREESTYLE SULEIMAN 3 SENSOR) Tricia 08-28 00:00: 00 09-03 00:00 :00 No [id number] 1{each} inject 1 Each under the skin every 14 (fourteen) days. Use as directed to check blood sugar 3x a day for diagnosis E11.65 [facility] semaglutide (OZEMPIC) 0.25 mg or 0.5 mg (2 mg/3 mL) PnIj 08-28 00:00: 00 09-03 00:00 :00 No [id number] Start 0.25 mg weekly dose for 4 weeks and then progress to 0.5mg weekly injection. [facility] Nitrofurant oin&Nit. Macrocryst 100 mg capsule 08-15 00:00: 00 07-04 00:00 :00 No TAKE 1 CAPSULE BY MOUTH EVERY 12 HOURS FOR 10 DAYS [facility] flash glucose sensor (FREESTYLE SULEIMAN 2 SENSOR) Kit 07-23 00:00: 00 08-28 00:00 :00 No [id number] 1{kit} 1 Kit every 14 (fourteen) days. [facility] lisinopriL 10 mg tablet 07-18 15:39: 43 07-18 00:00 :00 No 10mg Take 1 tablet by mouth in the morning. [facility] insulin glargine U-300 conc (TOUJEO MAX U-300 SOLOSTAR) 300 unit/mL (3 mL) In 07-18 15:39: 43 07-18 00:00 :00 No 60U inject 60 Units under the skin at bedtime. [facility] citalopram 10 mg tablet 07-18 15:39: 43 07-18 00:00 :00 No 10mg Take 1 tablet by mouth at bedtime. [facility] insulin glargine U-300 conc (TOUJEO MAX U-300 SOLOSTAR) 300 unit/mL (3 mL) [facility] 07-18 00:00: 00 04-05 00:00 :00 No [id number] 20U inject 20 Units under the skin at bedtime. [facility] citalopram 10 mg tablet 07-18 00:00: 00 03-28 00:00 :00 No [id number] 10mg Take 1 tablet by mouth at bedtime. [facility] lisinopriL 10 mg tablet 07-18 00:00: 00 11-19 00:00 :00 No [id number] 10mg Take 1 tablet by mouth in the morning. [facility] Atorvastati n Calcium 20 MG Atorvastati n Calcium 20 MG 08-29 00:00: 00 No 1{table t} QD Atorvastat in Calcium 20 MG FreeStyle Suleiman Caruthers FreeStyle Suleiman Caruthers 03-05 00:00: 00 Yes Na Grant as directed [facility] FreeStyle Suleiman Sensor System FreeStyle Suleiman Sensor System 03-05 00:00: 00 Yes Na Grant as directed [facility] FreeStyle Suleiman Caruthers - FreeStyle Suleiman Caruthers - 03-05 00:00: 00 No FreeStyle Suleiman Caruthers - FreeStyle Suleiman Caruthers - FreeStyle Suleiman Caruthers - 03-05 00:00: 00 No FreeStyle Suleiman Caruthers - FreeStyle Suleiman Sensor System - FreeStyle Suleiman Sensor System - 03-05 00:00: 00 No FreeStyle Suleiman Sensor System - Citalopram Hydrobromid e Citalopram Hydrobromid e 02-25 00:00: 00 Yes Na Grant 1 tablet [facility] Eliquis 5 mg Eliquis 5 mg Yes Na Grant one [facility] Paxil Paxil Yes Na Grant 1 tablet in the morning [facility] Toujeo SoloStar Toujeo SoloStar Yes Na Grant 70 units [facility] Gabapentin Gabapentin Yes Na Grant 2 capsule before bedtime [facility] Ferralet 90 Ferralet 90 Yes Na Grant 1 tablet [facility] Lisinopril Lisinopril Yes Na Grant 1 tablet [facility] Pravastatin Sodium Pravastatin Sodium Yes Na Grant 1 tablet [facility] Clotrimazol e Clotrimazol e Yes Na Grant 1 applicatio n to affected area [facility] Gabapentin 300 MG Gabapentin 300 MG No [...] 1 tablet every day by oral route. [facility] gabapentin 100 mg capsule Take 1 capsule 3 times a day by oral route. gabapentin 100 mg capsule Take 1 capsule 3 times a day by oral route. No 1capsul e(s) TID gabapentin 100 mg capsule Take 1 capsule 3 times a day by oral route. [facility] lisinopril 10 mg tablet Take 1 tablet every day by oral route. lisinopril 10 mg tablet Take 1 tablet every day by oral route. No 1 Q1D lisinopril 10 mg tablet Take 1 tablet every day by oral route. [facility] estradiol 0.01% (0.1 mg/gram) vaginal cream Insert 0.5 g by vaginal route at bedtime for 30 days. estradiol 0.01% (0.1 mg/gram) vaginal cream Insert 0.5 g by vaginal route at bedtime for 30 days. No .5g estradiol 0.01% (0.1 mg/gram) vaginal cream Insert 0.5 g by vaginal route at bedtime for 30 days. [facility] Immunizations Ordered Immunization Name Filled Immunization Name Date Status Comments Source Flu Injectable MDCK Pres-Free (FLUCELVAX) 2024-01-31 00:00:00 Completed [facility] Zoster Vaccine Recombinant 2022-11-19 00:00:00 Completed [facility] Zoster Vaccine Recombinant 2022-11-19 00:00:00 Completed SARS-COV-2 COVID-19 PFIZER VACCINE 2020-05-27 00:00:00 Completed [facility] SARS-COV-2 COVID-19 PFIZER VACCINE 2020-05-27 00:00:00 Completed [facility] SARS-COV-2 COVID-19 PFIZER VACCINE 2020-05-27 00:00:00 Completed [facility] SARS-COV-2 COVID-19 PFIZER VACCINE 2020-05-27 00:00:00 Completed [facility] SARS-COV-2 COVID-19 PFIZER VACCINE 2020-05-27 00:00:00 Completed [facility] SARS-COV-2 COVID-19 PFIZER VACCINE 2020-05-27 00:00:00 Completed [facility] SARS-COV-2 COVID-19 PFIZER VACCINE 2020-05-27 00:00:00 Completed [facility] SARS-COV-2 COVID-19 PFIZER VACCINE 2020-05-27 00:00:00 Completed [facility] SARS-COV-2 COVID-19 PFIZER VACCINE 2020-05-27 00:00:00 Completed [facility] SARS-COV-2 COVID-19 PFIZER VACCINE 2020-05-27 00:00:00 Completed [facility] SARS-COV-2 COVID-19 PFIZER VACCINE 2020-05-27 00:00:00 Completed [facility] SARS-COV-2 COVID-19 PFIZER VACCINE 2020-05-27 00:00:00 Completed [facility] SARS-COV-2 COVID-19 PFIZER VACCINE 2020-05-05 00:00:00 Completed [facility] SARS-COV-2 COVID-19 PFIZER VACCINE 2020-05-05 00:00:00 Completed [facility] SARS-COV-2 COVID-19 PFIZER VACCINE 2020-05-05 00:00:00 Completed [facility] SARS-COV-2 COVID-19 PFIZER VACCINE 2020-05-05 00:00:00 Completed [facility] SARS-COV-2 COVID-19 PFIZER VACCINE 2020-05-05 00:00:00 Completed [facility] SARS-COV-2 COVID-19 PFIZER VACCINE 2020-05-05 00:00:00 Completed [facility] SARS-COV-2 COVID-19 PFIZER VACCINE 2020-05-05 00:00:00 Completed [facility] SARS-COV-2 COVID-19 PFIZER VACCINE 2020-05-05 00:00:00 Completed [facility] SARS-COV-2 COVID-19 PFIZER VACCINE 2020-05-05 00:00:00 Completed [facility] SARS-COV-2 COVID-19 PFIZER VACCINE 2020-05-05 00:00:00 Completed [facility] SARS-COV-2 COVID-19 PFIZER VACCINE 2020-05-05 00:00:00 Completed [facility] SARS-COV-2 COVID-19 PFIZER VACCINE 2020-05-05 00:00:00 Completed [facility] Afluria Afluria 2019-11-24 14:21:00 Completed [facility] Afluria Afluria 2019-11-24 14:21:00 Completed [facility] Afluria Afluria 2017-11-25 12:09:00 Completed [facility] Afluria Afluria 2017-11-25 12:09:00 Completed [facility] SARS-COV-2 COVID-19 PFIZER VACCINE Unknown Completed [facility] SARS-COV-2 COVID-19 PFIZER VACCINE Unknown Completed [facility] SARS-COV-2 COVID-19 PFIZER VACCINE Unknown Completed [facility] Zoster Vaccine Recombinant Unknown Completed [facility] SARS-COV-2 COVID-19 PFIZER VACCINE Unknown Completed [facility] Zoster Vaccine Recombinant Unknown Completed [facility] SARS-COV-2 COVID-19 PFIZER VACCINE Unknown Completed [facility] Zoster Vaccine Recombinant Unknown Completed [facility] SARS-COV-2 COVID-19 PFIZER VACCINE Unknown Completed [facility] Zoster Vaccine Recombinant Unknown Completed [facility] Zoster Vaccine Recombinant Unknown Completed [facility] SARS-COV-2 COVID-19 PFIZER VACCINE Unknown Completed [facility] Zoster Vaccine Recombinant Unknown Completed [facility] SARS-COV-2 COVID-19 PFIZER VACCINE Unknown Completed [facility] Zoster Vaccine Recombinant Unknown Completed [facility] SARS-COV-2 COVID-19 PFIZER VACCINE Unknown Completed [facility] Zoster Vaccine Recombinant Unknown Completed [facility] SARS-COV-2 COVID-19 PFIZER VACCINE Unknown Completed [facility] Zoster Vaccine Recombinant Unknown Completed [facility] SARS-COV-2 COVID-19 PFIZER VACCINE Unknown Completed [facility] Zoster Vaccine Recombinant Unknown Completed [facility] Zoster Vaccine Recombinant Unknown Completed [facility] SARS-COV-2 COVID-19 PFIZER VACCINE Unknown Completed [facility] Zoster Vaccine Recombinant Unknown Completed [facility] SARS-COV-2 COVID-19 PFIZER VACCINE Unknown Completed [facility] SARS-COV-2 COVID-19 PFIZER VACCINE Unknown Completed [facility] Zoster Vaccine Recombinant Unknown Completed [facility] SARS-COV-2 COVID-19 PFIZER VACCINE Unknown Completed [facility] Zoster Vaccine Recombinant Unknown Completed [facility] SARS-COV-2 COVID-19 PFIZER VACCINE Unknown Completed [facility] Zoster Vaccine Recombinant Unknown Completed [facility] Zoster Vaccine Recombinant Unknown Completed [facility] Zoster Vaccine Recombinant Unknown Completed [facility] SARS-COV-2 COVID-19 PFIZER VACCINE Unknown Completed [facility] SARS-COV-2 COVID-19 PFIZER VACCINE Unknown Completed [facility] Zoster Vaccine Recombinant Unknown Completed [facility] SARS-COV-2 COVID-19 PFIZER VACCINE Unknown Completed [facility] SARS-COV-2 COVID-19 PFIZER VACCINE Unknown Completed [facility] Zoster Vaccine Recombinant Unknown Completed [facility] SARS-COV-2 COVID-19 PFIZER VACCINE Unknown Completed [facility] Zoster Vaccine Recombinant Unknown Completed [facility] SARS-COV-2 COVID-19 PFIZER VACCINE Unknown Completed [facility] Zoster Vaccine Recombinant Unknown Completed [facility] Vital Signs Vital Name Observation Time Observation Value Comments S ource Systolic blood pressure 2024-01-31 16:15:00 179 mm[Hg] [facility] Diastolic blood pressure 2024-01-31 16:15:00 96 mm[Hg] [facility] Heart rate 2024-01-31 16:14:00 88 [facility] 2024-01-31 16:14:00 36.72 Rose [facility] Respiratory rate 2024-01-31 16:14:00 18 /min [facility] Body height 2024-01-31 16:14:00 162.6 cm [facility] Body weight 2024-01-31 16:14:00 59.603 kg [facility] BMI 2024-01-31 16:14:00 22.55 kg/m2 [facility] Oxygen saturation in Arterial blood by Pulse oximetry 2024-01-31 16:14:00 100 /min [facility] BP Diastolic 2023-09-25 00:00:00 73 mm[Hg] Cynthia [...] Systolic blood pressure 2023-07-05 20:16:00 180 mm[Hg] [facility] Diastolic blood pressure 2023-07-05 20:16:00 96 mm[Hg] [facility] Heart rate 2023-07-05 20:15:00 97 /min [facility] Body temperature 2023-07-05 20:15:00 37 Rose [facility] Respiratory rate 2023-07-05 20:15:00 18 /min [facility] Body height 2023-07-05 20:15:00 162.6 cm [facility] Body weight 2023-07-05 20:15:00 57.652 kg [facility] BMI 2023-07-05 20:15:00 21.82 kg/m2 [facility] Oxygen saturation in Arterial blood by Pulse oximetry 2023-07-05 20:15:00 98 /min [facility] Systolic blood pressure 2023-05-10 20:09:00 118 mm[Hg] [facility] Diastolic blood pressure 2023-05-10 20:09:00 73 mm[Hg] [facility] Heart rate 2023-05-10 20:09:00 94 /min Unive [facility] Body temperature 2023-05-10 20:09:00 36.72 Rose [facility] Respiratory rate 2023-05-10 20:09:00 18 /min [facility] Body height 2023-05-10 20:09:00 162.6 cm General acute hospital Body weight 2023-05-10 20:09:00 60.918 kg General acute hospital BMI 2023-05-10 20:09:00 23.05 kg/m2 General acute hospital Oxygen saturation in Arterial blood by Pulse oximetry 2023-05-10 20:09:00 99 /min [facility] Systolic blood pressure 2023-04-05 21:42:00 144 mm[Hg] [facility] Diastolic blood pressure 2023-04-05 21:42:00 83 mm[Hg] [facility] Heart rate 2023-04-05 21:42:00 102 /[facility] 2023-04-05 21:42:00 162.6 cm General acute hospital Body weight 2023-04-05 21:42:00 57.698 kg General acute hospital BMI 2023-04-05 21:42:00 21.83 kg/m2 General acute hospital Oxygen saturation in Arterial blood by Pulse oximetry 2023-04-05 21:42:00 99 /min [facility] Systolic blood pressure 2022-11-19 16:08:00 105 mm[Hg] [facility] Diastolic blood pressure 2022-11-19 16:08:00 70 mm[Hg] [facility] Heart rate 2022-11-19 16:08:00 94 /min [facility] Body height 2022-11-19 16:08:00 162.6 cm Univ [facility] [place] Body weight 2022-11-19 16:08:00 59.875 kg Univ [facility] [place] BMI 2022-11-19 16:08:00 22.66 kg/m2 [facility] Oxygen saturation in Arterial blood by Pulse oximetry 2022-11-19 16:08:00 100 /min [facility] Systolic blood pressure 2022-09-03 14:37:00 143 mm[Hg] [facility] Diastolic blood pressure 2022-09-03 14:37:00 84 mm[Hg] [facility] Heart rate 2022-09-03 14:29:00 83 /min [facility] Body height 2022-09-03 14:29:00 162.6 cm Univ [facility] Body weight 2022-09-03 14:29:00 61.417 kg Univ [facility] BMI 2022-09-03 14:29:00 23.24 kg/m2 Univ [facility] Oxygen saturation in Arterial blood by Pulse oximetry 2022-09-03 14:29:00 99 /min [facility] Systolic blood pressure 2022-08-28 16:17:00 147 mm[Hg] [facility] Diastolic blood pressure 2022-08-28 16:17:00 85 mm[Hg] [facility] Heart rate 2022-08-28 16:17:00 92 /min [facility] Body height 2022-08-28 16:17:00 162.6 cm Univ [facility] Body weight 2022-08-28 16:17:00 61.326 kg Univ [facility] BMI 2022-08-28 16:17:00 23.21 kg/m2 Univ [facility] Systolic blood pressure 2022-08-28 16:17:00 147 mm[Hg] [facility] Diastolic blood pressure 2022-08-28 16:17:00 85 mm[Hg] [facility] Heart rate 2022-08-28 16:17:00 92 /min [facility] Body height 2022-08-28 16:17:00 162.6 cm General acute hospital Body weight 2022-08-28 16:17:00 61.326 kg General acute hospital BMI 2022-08-28 16:17:00 23.21 kg/m2 General acute hospital Systolic blood pressure 2022-07-18 20:23:00 134 mm[Hg] [facility] Diastolic blood pressure 2022-07-18 20:23:00 88 mm[Hg] [facility] Heart rate 2022-07-18 20:23:00 98 /min [facility] Body temperature 2022-07-18 20:23:00 36.94 [facility] Body height 2022-07-18 20:23:00 162.6 cm General acute hospital Body weight 2022-07-18 20:23:00 59.421 kg General acute hospital BMI 2022-07-18 20:23:00 22.49 kg/m2 General acute hospital Oxygen saturation in Arterial blood by Pulse oximetry 2022-07-18 20:23:00 100 /min [facility] height 2021-08-29 10:40:00 64.00 [in_i] Com [facility] weight 2021-08-29 10:40:00 146.0 [lb_av] Co [facility] temperature 2021-08-29 10:40:00 98.6 [degF] Com [facility] bmi 2021-08-29 10:40:00 25.06 kg/m2 Comm on [facility] oximetry 2021-08-29 10:40:00 99 % Commo n [facility] respiratory rate 2021-08-29 10:40:00 17 /min Common [facility] blood pressure systolic 2021-08-29 10:40:00 129 mm[Hg] [facility] blood pressure diastolic 2021-08-29 10:40:00 77 mm[Hg] [facility] height 2021-08-29 11:40:00 64.00 [in_i] Com [facility] weight 2021-08-29 11:40:00 146.0 [lb_av] Co [facility] temperature 2021-08-29 11:40:00 98.6 [degF] Com [facility] bmi 2021-08-29 11:40:00 25.06 kg/m2 Comm on [facility] oximetry 2021-08-29 11:40:00 99 % [facility] respiratory rate 2021-08-29 11:40:00 17 /min [facility] blood pressure systolic 2021-08-29 11:40:00 129 mm[Hg] [facility] blood pressure diastolic 2021-08-29 11:40:00 77 mm[Hg] [facility] height 2021-04-18 14:00:00 64.00 [in_i] Com [facility] weight 2021-04-18 14:00:00 153.2 [lb_av] Co [facility] temperature 2021-04-18 14:00:00 97.2 [degF] Com [facility] bmi 2021-04-18 14:00:00 26.29 kg/m2 Comm on [facility] oximetry 2021-04-18 14:00:00 100 % [facility] respiratory rate 2021-04-18 14:00:00 18 /min [facility] blood pressure systolic 2021-04-18 14:00:00 190 mm[Hg] [facility] blood pressure diastolic 2021-04-18 14:00:00 98 mm[Hg] [facility] Procedures Procedure Date / Time Performed Performing Clinician Source FLU VACC ([id number]), 6 MO-64 YRS, .5ML, IM, TIV (FLUCELVAX) 2024-01-31 16:25:36 Leonor Ashford [facility] POCT URINALYSIS 2023-07-05 20:58:00 Leonor Ashford [facility] VARICELLA-ZOSTER VACCINE, (SHINGRIX) 50 MCG/0.5 ML, IM 2022-11-19 17:30:52 Leonor Ashford [facility] AUTHORIZATION TO RELEASE PHI TO [facility] 2022-07-18 05:01:00 Doctor Unassigned, Falman [facility] Delivery 2003-02-11 00:00:00 Cynthia via Medical Delivery 2000-02-12 00:00:00 Cynthia via Medical Tubal L[facility] En[facility]ters Start Date/Time End Date/Time Encounter Type Admission Type Attending [facility] Care Facility Care Department Encounter ID Source 2021-10-06 08:36:00 Outpatient Grant, Na STLMLC STLMLC [id number] [facility] 2021-08-25 08:32:06 Outpatient Grant, Na STLMLC STLMLC [id number] [facility] 2021-05-22 11:20:01 Outpatient Grant, Na STLMLC STLMLC [id number] [facility] 2021-03-08 12:21:04 Outpatient Grant, Na STLMLC STLMLC [id number] [facility] 2021-03-08 12:12:09 Outpatient Grant, Na STLMLC STLMLC [id number] [facility] 2021-03-08 12:07:01 Outpatient Grant, Na STLMLC STLMLC [id number] [facility] 2021-03-08 12:04:39 Outpatient Grant, Na STLMLC STLMLC [id number] [facility] 2021-03-08 11:54:42 Outpatient Grant, Na STLMLC STLMLC [id number] [facility] 2021-03-08 11:54:10 Outpatient Althea Grant [facility] [id number] [facility] 2021-03-08 11:28:46 Outpatient Althea Grant [facility] [id number] [facility] 2020-12-12 08:36:55 Outpatient R LORNA BOLIVAR [facility] OPH [id number] [facility] 2004-02-20 00:00:00 Inpatient P DOCTOR UNASSIGNED, NO [facility] TOMASZ [id number] [facility] 2024-03-13 16:00:00 2024-03-13 16:00:00 Outpatient LEONOR ARREGUIN [facility] [id number] [facility] 2024-02-11 00:00:00 2024-02-11 14:42:22 Telephone Leonor Ashford [facility] GIAN?[facility] 1.2.840.114 350.1.13.10 4.2.7.2.686 [id number] [facility] 2024-02-07 00:00:00 2024-02-10 10:37:04 Telephone [facility] 1.2.840.114 350.1.13.10 4.2.7.2.686 [id number] [facility] 2024-02-06 00:00:00 2024-02-06 18:14:09 Telephone Leon[facility] Ashford [facility] 1.2.840.114 350.1.13.10 4.2.7.2.686 [id number] [facility] 2024-01-31 11:00:00 2024-01-31 11:15:00 [employer] Professional Visit Lab, Leonor Avalos Lab, Keshawn Marcos [facility] GIAN?[facility] 1.2.840.114 350.1.13.10 4.2.7.2.686 [id number] [facility] 2024-01-31 10:30:00 2024-01-31 11:00:00 Office Visit Leonor Ashford [facility] GIAN?[facility] 1.2.840.114 350.1.13.10 4.2.7.2.686 [id number] [facility] 2024-01-31 10:30:00 2024-01-31 10:52:09 Outpatient R LEONOR ASHFORD [facility] [id number] [facility] 2024-01-03 00:00:00 2024-01-03 16:21:49 Telephone Leonor Ashford [facility] GIAN?[facility] 1.2.840.114 350.1.13.10 4.2.7.2.686 [id number] [facility] 2023-11-30 00:00:00 2023-12-03 07:40:22 Refill Leonor Ashford [facility] GIAN?[facility] 1.2.840.114 350.1.13.10 4.2.7.2.686 [id number] [facility] 2023-11-13 00:00:00 2023-11-13 00:00:00 JAIRO Houser: [address], [address], [place] [address] , Ph. [facility] - GC_GCBZW_Marsha arias Negrito* [id number] [facility] 2023-11-06 00:00:00 2023-11-06 00:00:00 JAIRO Houser: [address], [address], [place] [address] , Ph. [facility] - GC_GCBZW_Marsha Mahan* [id number] [facility] 2023-10-28 00:00:00 2023-10-28 00:00:00 JAIRO Houser: [address], [address], [place] [address] , Ph. [facility] - GC_GCBZW_Marsha juana Negrito* [id number] [facility] 2023-10-23 00:00:00 2023-10-23 14:17:03 Telephone Dejon [facility] 1.2.840.114 350.1.13.10 4.2.7.2.686 [id number] [facility] 2023-10-23 00:00:00 2023-10-23 11:13:53 Telephone Dejon [facility] 1.2.840.114 350.1.13.10 4.2.7.2.686 [id number] [facility] 2023-10-15 00:00:00 2023-10-16 16:08:11 Telephone Dejon [facility] 1.2.840.114 350.1.13.10 4.2.7.2.686 [id number] [facility] 2023-09-25 00:00:00 2023-09-25 00:00:00 JAIRO Houser: [address], [address], [place] [address] , Ph. [facility] GC_GCBZW_Marsha Mahan* [id number] [facility] 2023-09-03 00:00:00 2023-09-03 00:00:00 JAIRO Houser: [address], [address], [place] [address] , Ph. [facility] - GC_GCBZW_La juana Mahan* [id number] [facility] 2023-04-06 00:00:00 2023-07-30 02:04:49 Mobile Device Encounter Shital Hameed [facility] 1.0.358 350.1.13.10 4.2.7.2.686 [id number] [facility] 2023-07-09 00:00:00 2023-07-09 13:30:02 [facility]phone [facility] 1.64114 350.1.13.10 4.2.7.2.686 [id number] [facility] 2023-07-05 16:00:00 2023-07-05 16:25:20 Outpatient R LEONOR ASHFORD [facility] [id number] [facility] 2023-07-05 16:00:00 2023-07-05 16:25:20 [employer] Professional Visit Lab, Ang - Db Dejon [facility] GIAN?[facility] 1.320.114 350.1.13.10 4.2.7.2.686 [id number] [facility] 2023-07-05 15:30:00 2023-07-05 16:01:54 Office Visit Dejon Leonor [facility] 1.090.114 350.1.13.10 4.2.7.2.686 [id number] [facility] 2023-06-09 00:00:00 2023-06-09 00:00:00 [facility]ill [facility] 1.140.114 350.1.13.10 4.2.7.2.686 [id number] [facility] 2023-05-27 13:18:08 2023-05-27 23:59:00 Outpatient R LEONOR ASHFORD [facility] [id number] [facility] 2023-05-27 13:18:08 2023-05-27 23:59:00 Hospital Encounter Leonor Ashford [facility] 1..840.114 350.1.13.10 4.2.7.2.686 [id number] [facility] 2023-05-10 15:30:00 2023-05-10 17:26:18 Outpatient R LEONOR ASHFORD [facility] [id number] [facility] 2023-05-10 16:00:00 2023-05-10 16:00:00 [employer] Professional Visit Lab, Keshawn Pantojaleonel [facility] 1..840.114 350.1.13.10 4.2.7.2.686 [id number] [facility] 2023-05-10 15:30:00 2023-05-10 16:00:00 Office Visit Leonor Ashford [facility] 1..840.114 350.1.13.10 4.2.7.2.686 [id number] [facility] 2023-04-05 15:30:00 2023-04-05 16:36:33 Outpatient R LEONOR ASHFORD [facility] [id number] [facility] 2023-04-05 16:00:00 2023-04-05 16:09:40 [employer] Professional Visit Lab, Keshawn Pantojaleonel [facility] 1..840.114 350.1.13.10 4.2.7.2.686 [id number] [facility] 2023-04-05 15:30:00 2023-04-05 16:00:00 Office Visit Leonor Ashford [facility] SPR[facility] 1.2.840.114 350.1.13.10 4.2.7.2.686 [id number] [facility] 2023-04-05 00:00:00 2023-04-05 00:00:00 Telephone [facility]ford [facility] 1.2840.114 350.1.13.10 4.2.7.2.686 [id number] [facility] 2023-04-01 08:30:00 2023-04-01 08:30:00 Outpatient R LEONOR ASHFORD [facility] [id number] [facility] 2023-03-28 00:00:00 2023-03-28 00:00:00 Refill Leonor Ashford [facility] GIAN?[facility] 1..840.114 350.1.13.10 4.2.7.2.686 [id number] [facility] 2023-03-28 00:00:00 2023-03-28 00:00:00 Telephone Leonor Ashford [facility] 1..840.114 350.1.13.10 4.2.7.2.686 [id number] [facility] 2023-03-28 00:00:00 2023-03-28 00:00:00 Nurse Triage Leonor Ashford [facility] 1..840.114 350.1.13.10 4.2.7.2.686 [id number] [facility] 2022-12-24 14:00:00 2022-12-24 14:00:00 Outpatient R LEONOR ASHFORD [facility] [id number] [facility] 2022-12-11 00:00:00 2022-12-11 00:00:00 Outpatient GC_GCBZW_Ka diangiea_S [facility] [id number] [facility] 2022-11-27 00:00:00 2022-11-27 00:00:00 Telephone DejonLeonor [facility] 1.2840.114 350.1.13.10 4.2.7.2.686 [id number] [facility] 2022-11-20 00:00:00 2022-11-20 00:00:00 Telephone DejonLeonor [facility] 1.2840.114 350.1.13.10 4.2.7.2.686 [id number] [facility] 2022-11-20 00:00:00 2022-11-20 00:00:00 Telephone DejonLeonor [facility] 1.284.114 350.1.13.10 4.2.7.2.686 [id number] [facility] 2022-11-19 12:00:00 2022-11-19 13:16:11 Outpatient R DEJON LEONOR [facility] [id number] [facility] 2022-11-19 12:00:00 2022-11-19 12:15:00 [employer] Professional Visit Lab, Keshawn - Hemant Ashford [facility] GIAN?[facility] 1.84.114 350.1.13.10 4.2.7.2.686 [id number] [facility] 2022-11-19 11:30:00 2022-11-19 12:00:00 Office Visit Dejon Leonor [facility] 1.2840.114 350.1.13.10 4.2.7.2.686 [id number] [facility] 2022-09-20 00:00:00 2022-09-20 00:00:00 Telephone Samaria Cotton [facility] 1.2.840.114 350.1.13.10 4.2.7.2.686 [id number] [facility] 2022-09-03 10:00:00 2022-09-03 10:00:00 Office Visit Leonor Ashford [facility] 1..840.114 350.1.13.10 4.2.7.2.686 [id number] [facility] 2022-09-03 10:00:00 2022-09-03 09:54:13 Outpatient R LEONOR ASHFORD [facility] [id number] [facility] 2022-09-03 00:00:00 2022-09-03 00:00:00 Refill Leonor Ashford [facility] GIAN?[facility] 1.2.840.114 350.1.13.10 4.2.7.2.686 [id number] [facility] 2022-08-28 11:00:00 2022-08-28 12:27:15 Office Visit Samaria Cotton [facility] 1.2.840.114 350.1.13.10 4.2.7.2.686 [id number] [facility] 2022-08-28 11:00:00 2022-08-28 12:27:15 Outpatient R SAMARIA COTTON [facility] [id number] [facility] 2022-07-26 00:00:00 2022-07-26 00:00:00 Patient Secure Msg Doctor Unassigned, Falman [facility] GIAN?[facility] 1.114 350.1.13.10 4.2.7.2.686 [id number] [facility] 2022-07-24 00:00:00 2022-07-24 00:00:00 Letter (Out) Clinic, [facility] Nephrology [facility] 1..114 350.1.13.10 4.2.7.2.686 [id number] [facility] 2022-07-23 07:45:00 2022-07-23 08:00:00 [employer] Professional Visit Lab, Keshawn Ashford [facility] 1.114 350.1.13.10 4.2.7.2.686 [id number] [facility] 2022-07-23 07:45:00 2022-07-23 07:45:00 Outpatient R LEONOR ASHFORD [facility] [id number] [facility] 2022-07-23 00:00:00 2022-07-23 00:00:00 Patient Secure Msg Doctor Unassigned, Falman [facility] 1.114 350.1.13.10 4.2.7.2.686 [id number] [facility] 2022-07-20 00:00:00 2022-07-20 00:00:00 Telephone Leonor Ashford [facility] GIAN?[facility] 1.114 350.1.13.10 4.2.7.2.686 [id number] [facility] 2022-07-18 16:15:00 2022-07-18 16:45:23 [employer] Professional Visit Lab, Leonor Avalos [facility] GIAN?[facility] 1.114 350.1.13.10 4.2.7.2.686 [id number] [facility] 2022-07-18 15:00:00 2022-07-18 16:22:36 Outpatient R DEJON LEONOR [facility] [id number] [facility] 2022-07-18 15:00:00 2022-07-18 16:22:36 Office Visit Leon[facility] Ashford [facility] 1.2.840.114 350.1.13.10 4.2.7.2.686 [id number] [facility] 2022-07-18 00:00:00 2022-07-18 00:00:00 Orders Only Doctor Unassigned, Falman [facility] 1.2.840.114 350.1.13.10 4.2.7.2.686 [id number] [facility] 2021-08-29 00:00:00 2021-08-29 00:00:00 SUB ANNUAL [facility] WELLNESS VISIT STLMLC STLMLC [id number] [facility] 2021-08-29 00:00:00 2021-08-29 00:00:00 OFFICE VISIT EST PT LEVEL 3 STLMLC STLMLC [id number] [facility] 2021-04-18 00:00:00 2021-04-18 00:00:00 OFFICE VISIT ESTAB PT LEVEL 4 STLMLC STLMLC [id number] [facility] 2020-08-26 09:15:00 2020-08-26 09:15:00 Outpatient LORNA DUQUE [facility] [id number] [facility] 2020-02-08 00:00:00 2020-02-08 00:00:00 Outpatient STLMLC STLMLC [id number] [facility] 2019-12-25 00:00:00 2019-12-25 00:00:00 Outpatient STLMLC STLMLC [id number] [facility] 2019-11-25 00:00:00 2019-11-25 00:00:00 Out[address] [facility] [id number] [facility] 2019-11-24 00:00:00 2019-11-24 00:00:00 Outpatient [facility] [id number] [facility] 2019-11-12 00:00:00 2019-11-12 00:00:00 Outpatient STLMLC STLMLC [id number] [facility] 2019-08-04 11:39:00 2019-08-04 11:39:00 [address] [facility] [id number] [facility] 2018-08-27 11:20:00 2018-08-27 11:20:00 [facility] [id number] [facility] 2018-06-06 02:13:00 2018-06-06 02:13:[address] [facility] [id number] [facility] 2018-03-05 17:07:00 2018-03-05 17:07:00 [facility] [id number] [facility] 2018-03-05 17:03:00 2018-03-05 17:03:00 [facility] [id number] [facility] 2018-03-05 10:48:00 2018-03-05 10:48:00 [facility] [id number] [facility] 2018-02-25 10:45:00 2018-02-25 10:45:00 [facility] [id number] [facility] 2018-02-07 12:01:00 2018-02-07 12:01:00 [facility] [id number] [facility] 2017-10-01 13:45:00 2017-10-01 13:45:00 Outpatient [facility] [id number] [facility] 2017-09-26 11:12:00 2017-09-26 11:12:00 Outpatient [facility] [id number] [facility] 2017-09-04 11:15:00 2017-09-04 11:15:00 Outpatient [facility] [id number] [facility] 2004-01-04 14:10:00 2004-01-06 16:32:00 Inpatient P ABHINAV CALERO [facility]HEL [facility] [id number] 8 [facility] 2003-12-31 00:00:00 2003-12-31 23:59:00 Outpatient P SANDRA REECE [facility] [id number] 1 [facility] 2003-12-28 00:00:00 2003-12-28 23:59:00 Outpatient P ABHINAV CALERO MICHEL [facility] [id number] 3 [facility] Results Test Description Test Time Test Comments Results Result Co mments Source [facility]2 Ab+HIV1 p24 Ag [Presence] in Serum or Plasma by [id number] 00:00:00* Test Item Value Reference Range Interpretation Comme nts HIV Ag/Ab (test code = HIV Ag/Ab) NON-REACTIVE non-reactive HIV-1 P24 Ag (test code = HI V-1 P24 Ag) NON-REACTIVE non-reactive HIV 1+2 Ab (test code = HIV 1+2 Ab) NON-REACTIVE non-reactive [facility]agin Ab [Presence] in Serum by [id number] 00:00:00* Test Item Value Reference Range Interpretation Comme nts RPR (test code = RPR) NON-REACTIVE non-reactive [facility] Medical[facility]ious disease [id number] 00:00:00* Test Item Value Reference Range Interpretation [...] B, tet M) 22.631 ppm 23.000-27.778 A [facility] Medicalurinalysis, [id number] 12:26:00* Test Item Value Reference Range Interpretation Comme nts Leukocytes (test code = Leukocytes) Negative Nitrite (test code = Nitrite) negative Urobilinogen (test code = Urobilinogen) Normal Protein (test code = Protein) 2+ pH (test code = pH) 6.0 Blood (test code = Blood) 1+ Specific [place] (test code = Specific [place]) 1.015 Ketone (test code = Ketone) Negative Bilirubin (test code = Bilirubin) Negative Glucose (test code = Glucose) Negative Appearance (test code = Appearance) Slightly Cloudy Color (test code = Color) Yellow [facility]atitis B virus surface Ag [Presence] in [id number] 00:00:00* Test Item Value Reference Range Interpretation Comme nts ethnicity: (test code = ethnicity:) OTHER race: (test code = race:) UNKNOWN hep. B surf. Ag (test code = hep. B surf. Ag) NON-REACTIVE non-reactive [facility]atitis C virus Ab [Presence] in [id number] 00:00:00* Test Item Value Reference Range Interpretation Comme nts ethnicity: (test code = ethnicity:) OTHER race: (test code = race:) UNKNOWN hep. C Ab. (test code = hep. C Ab.) NON-REACTIVE non-reactive [facility] Urinalysis W Specific [id number] 21:09:00* Test Item Value Reference Range Interpretation [...] 3267) Lab Interpretation (test cod e = 51074-2) [facility] Specific [id number] 21:09:00* Test Item Value Reference Range Interpretation [...] 3267) Lab Interpretation (test cod e = 41472-9) Abnormal [facility]
[2024-02-19 17:14] LABS: Specific Gravity 1.013 (1.005-1.030); Sqamous Epithelial <5 /HPF (None Seen); Urine Bacteria <20 /HPF (<20); Urine Bilirubin NEGATIVE (Negative); Urine Blood 2+ (Negative); Urine Clarity Extremely Turbid (Clear); Urine Color Light-Yellow (Yellow); Urine Culture Reflex Order REFLEXED; Urine Glucose 4+ (Over) (Negative); Urine Ketones NEGATIVE (Negative); Urine Microscopic Reflex YN ORDER UMIC; Urine Nitrite NEGATIVE (Negative); Urine Protein 3+ (Negative); Urine RBC >50 /HPF (None Seen); Urine Urobilinogen Normal (Normal); Urine WBC >50 /HPF (<5); Urine WBC Clump Rare /HPF (None Seen); Urine pH 6.5 (5.0-7.0)
--- NOTE | 2024-02-19 17:21 | ER ---
Nurse's Notes [facility] Name: Tyra Stewart Age: 53 yrs Sex: Female : 1970 Arrival Date: 02/19/2024 Time: 15:12 Bed 11 Private MD: Diagnosis: UTI/ Urinary tract infection, site not specified Presentation: 02/18 15:39 Chief complaint: Patient states: I think I have another UTI. I have burning with tm6 urination, soreness in suprapubic area, foul smelling urine, frequency of urination. Started about a week ago. Coronavirus screen: Client denies travel out of the [place] in the last 14 days. Ebola Screen: Patient negative for fever greater than or equal to 101.5 degrees Fahrenheit, and additional compatible Ebola Virus Disease symptoms Patient denies exposure to infectious person. Patient denies travel to an Ebola-affected area in the 21 days before illness onset. No symptoms or risks identified at this time. Onset of symptoms was February 12, 2024. 15:39 Method Of Arrival: Ambulatory tm6 15:39 Acuity: TASHI 3 tm6 15:41 Initial Sepsis Screen: Does the patient meet any 2 criteria? No. Patient's initial tm6 sepsis screen is negative. Does the patient have a suspected source of infection? No. Patient's initial sepsis screen is negative. Risk Assessment: Do you want to hurt yourself or someone else? Patient reports no desire to harm self or others. Triage Assessment: 15:40 General: Appears in no apparent distress. Behavior is calm, cooperative. Pain: tm6 Complains of pain in pelvis Pain. Pain: Pain currently is 5 out of 10 on a pain scale. EENT: No signs and/or symptoms were reported regarding the EENT system. Neuro: Level of Consciousness is awake, alert, obeys commands, Oriented to person, place, time, situation. Cardiovascular: Capillary refill Patient's skin is warm and dry. Respiratory: Airway is patent Respiratory effort is even, unlabored, Respiratory pattern is regular, symmetrical. GI: No signs and/or symptoms were reported involving the gastrointestinal system. Abdomen is flat, non-distended. : Reports burning with urination, pain in suprapubic area urinary frequency. Derm: No signs and/or symptoms reported regarding the dermatologic system. Musculoskeletal: No signs and/or symptoms reported regarding the musculoskeletal system. 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 - Infectious Disease History:: Denies. - Social history:: Smoking status: Patient denies any tobacco usage or history of. Screenin:32 [facility] ED Fall Risk Assessment (Adult) History of falling in the last 3 months, bp including since admission No falls in past 3 months (0 pts) Confusion or Disorientation No (0 pts) Intoxicated or Sedated No (0 pts) Impaired Gait No (0 pts) Mobility Assist Device Used No (0 pt) Altered Elimination No (0 pt) Score/Fall Risk Level 0 - 2 = Low Risk Oriented to surroundings. Abuse screen: Denies threats or abuse. Denies injuries from another. Nutritional screening: No deficits noted. Tuberculosis screening: No symptoms or risk factors identified. Assessment: 17:31 Reassessment: Patient appears in no apparent distress at this time. Patient is alert, bp oriented x 3, equal unlabored respirations, skin warm/dry/pink. Vital Signs: 15:41 BP 168 / 100; Pulse 92; Resp 17; Temp 98.5(O); Pulse Ox 100% on R/A; MAP 121 mmHg; tm6 Weight 59.42 kg; Height 5 ft. 4 in. ; Pain 5/10; 15:41 Pain 5/10; tm6 15:41 Body Mass Index 22.49 (59.42 kg, 162.56 cm) tm6 15:41 Pain Scale: Adult tm6 15:41 Pain Scale: Adult tm6 ED Course: 15:16 Patient arrived in ED. sj2 15:20 [facility]in Mahan [facility]-C [facility] kb 15:20 Jeovanny Granado MD is Attending Physician. kb 15:40 Triage completed. tm6 15:40 Arm band placed on right wrist. tm6 16:59 Urinalysis w/ reflexes Sent. tm6 17:26 Adrian Youssef, RN is Primary Nurse. bp 17:32 Patient has correct armband on for positive identification. bp 17:32 No provider procedures requiring assistance completed. Patient did not have IV access bp during this emergency room visit. 17:33 Provided Education on: NA. bp Administered Medications: 17:31 Drug: Amoxicillin-Clavulanate PO 875 mg PO once Route: PO; bp 17:31 Follow up: Response: No adverse reaction bp Medication: 17:33 VIS not applicable for this client. bp Outcome: 17:20 Discharge ordered by MD. kb 17:32 Discharged to home ambulatory, bp 17:32 Condition: stable 17:32 Discharge instructions given to patient, Instructed on discharge instructions, follow up and referral plans. medication usage, Demonstrated understanding of instructions, follow-up care, medications, Prescriptions given X 2, 17:39 Patient left the ED. bp Signatures: Arin Mahan, JAIRO-C FOAMING MACHINE OPERATOR-Adrian Crain, RN RN bp Alberta Weems RN RN tm6 Brian Jang sj2
--- NOTE | 2024-02-19 17:21 | EDPHYS ---
Physician Documentation [facility] Name: Tyra Stewart Age: 53 yrs Sex: Female : 1970 Arrival Date: 02/19/2024 Time: 15:12 Bed 11 Private MD: ED Physician Jeovanny Granado HPI: 02/18 16:15 This 53 yrs old Female presents to ER via Ambulatory with complaints of kb Urinary Problem. 16:15 Pt is a 53 year old female who presents for malodorous urine, urinary frequency, small kb amount and burning with urination that started a little over a week ago. Denies fever, n/v, flank pain. States she has frequent UTIs. 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 - Infectious Disease History:: Denies. - Social history:: Smoking status: Patient denies any tobacco usage or history of. ROS: 16:15 Constitutional: As per HPI kb Exam: 16:15 Constitutional: This is a well developed, well nourished patient who is awake, alert, kb and in no acute distress. Head/Face: Normocephalic, atraumatic. ENT: Moist Mucous membranes Cardiovascular: Regular rate Respiratory: Respirations even and unlabored. No increased work of breathing. Talking in full sentences Abdomen/GI: Soft, non-tender. No distention Skin: Warm, dry with normal turgor. Normal color. MS/ Extremity: Pulses equal, no cyanosis. Neurovascular intact. Full, normal range of motion. Neuro: Awake and alert, GCS 15, oriented to person, place, time, and situation. Vital Signs: 15:41 BP 168 / 100; Pulse 92; Resp 17; Temp 98.5(O); Pulse Ox 100% on R/A; MAP 121 mmHg; tm6 Weight 59.42 kg; Height 5 ft. 4 in. ; Pain 5/10; 15:41 Pain 5/10; tm6 15:41 Body Mass Index 22.49 (59.42 kg, 162.56 cm) tm6 15:41 Pain Scale: Adult tm6 15:41 Pain Scale: Adult tm6 MDM: 15:20 Medical Screening Exam initiated kb 16:16 Data reviewed: vital signs, nurses notes. External Records Reviewed: Urine culture kb report from December 2023 reviewed. . 17:19 Differential diagnosis: UTI, pyelonephritis. Test considered but Not performed: Labs: kb cbc, cmp considered but pt is nontoxic in appearance, afebrile and tolerating po intake. Test considered but Not performed: CT: ct considered but pt has no abd or cva tenderness. Counseling: I had a detailed discussion with the patient and/or guardian regarding the historical points, exam findings, and any diagnostic results supporting the discharge/admit diagnosis, lab results, the need for outpatient follow up, a family practitioner, to return to the emergency department if symptoms worsen or persist or if there are any questions or concerns that arise at home. 02/18 15:41 Order name: Urinalysis w/ reflexes; Complete Time: 17:18 kb 02/18 17:17 Order name: Urine Culture EDMS Administered Medications: 17:31 Drug: Amoxicillin-Clavulanate PO 875 mg PO once Route: PO; bp 17:31 Follow up: Response: No adverse reaction bp Disposition: 02/19 06:59 Co-signature as Attending Physician, Jeovanny Granado MD I reviewed the patient's care rn provided by the Advanced Practice Provider and agree with the diagnosis and treatment plan. Disposition Summary: 02/19/24 17:20 Discharge Ordered Notes: Location: Home kb Condition: Stable kb Diagnosis - UTI/ Urinary tract infection, site not specified kb Followup: kb - With: Emergency Department - When: As needed - Reason: Worsening of condition Followup: kb - With: Private Physician - When: 2 - 3 days - Reason: Recheck today's complaints, Continuance of care, Re-evaluation by your physician Discharge Instructions: - Discharge Summary Sheet kb - Urinary Tract Infection, Adult, [id number] kb Forms: - Medication Reconciliation Form kb - Antibiotic Education kb - Prescription Opioid Use kb - Patient Portal Instructions kb - Leadership Thank You Letter kb Prescriptions: - Augmentin 875-125 mg Oral Tablet - take 1 tablet ORAL route every 12 hours for 10 days; 20 tablet; Refills: 0, kb Product Selection Permitted - Zofran 4 mg Oral Tablet - take 1 tablet ORAL route every 12 hours As needed; 20 tablet; Refills: 0, kb Product Selection Permitted Signatures: Dispatcher [employer] EDrAin Prasad, CARA COUNTER CUTTER-Jeovanny Chavez MD MD rn Peltier, Brian RN RN Alberta Nicole RN RN tm6 Corrections: (The following items were deleted from the chart) 02/18 15:41 15:41 Urinalysis+U.LAB.BRZ ordered. EDMT EDMS
[2024-02-19] MEDS ORDERED: AMOX/K CLAV 875 MG TAB ONE (17:29)
[2024-02-19 17:58] VITALS: BP 168/100; TEMP 98.5; O2SAT 100
== END 2024-02-19 17:39 | disposition home or self-care (01) ==
LOC: ER 15:12
DX: N39.0 Urinary tract infection, site not specified (principal)
CPT/HCPCS: 81001; 87077; 87086; 87088; 87186; 99283